=== PATIENT | male | born 1940 | race African-American/Black ===

== ENCOUNTER 2018-12-15 19:21 | Inpatient (IN) | payer MEDICARE ==
[~2018-12-15] VITALS: Ht 167.6 cm; Wt 58.5 kg
[2018-12-15 19:40] VITALS: BP 126/72
--- NOTE | 2018-12-15 20:05 | NUR ---
ER Nurse Note: Pt came from home c/o shortness of breath since October 2018. Pt stated it gets worse with activity and ADL, kyle walking. Pt a&ox4, HR 132 with no chest pain. Pt on 3L O2 at 99%. Pt warm to touch, cap refill less than 3 secs, no signs of distress. ERMD at pt side; will continue to montior.
[2018-12-15 20:29] LABS: ANION GAP 14 mmol/L (5-15); BLOOD UREA NITROGEN 26 mg/dL (7-18); CALCIUM 8.2 MG/DL (8.5-10.1); CARBON DIOXIDE 21 MMOL/L (21-32); CHLORIDE 105 MMOL/L (98-107); CREATININE 1.2 MG/DL (0.55-1.30); POTASSIUM 3.3 MMOL/L (3.5-5.1); SODIUM 140 MMOL/L (136-145)
[2018-12-15] MEDS ORDERED: dilTIAZem HCl 25mg/5ml Inj IVP ONE (20:30)
[2018-12-15 20:39] LABS: HEMATOCRIT 11.6 % (42.0-52.0); MEAN CORPUSCULAR VOLUME 92 FL (80-99); PLATELET COUNT 133 K/UL (150-450); RED BLOOD COUNT 1.26 M/UL (4.70-6.10)
[2018-12-15 20:41] LABS: HEMOGLOBIN 3.5 G/DL (14.2-18.0)
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
[2018-12-15 20:46] LABS: ALANINE AMINOTRANSFERASE 27 U/L (12-78); ALBUMIN/GLOBULIN RATIO 0.8 (1.0-2.7); ALKALINE PHOSPHATASE 766 U/L (46-116); ASPARTATE AMINO TRANSFERASE 32 U/L (15-37); BILIRUBIN,TOTAL 0.5 MG/DL (0.2-1.0); CKMB 0.5 NG/ML (0.0-3.6); CREATINE KINASE 58 U/L (26-308)
[2018-12-15 20:52] LABS: INR 1.1 (0.9-1.1)
[2018-12-15] MEDS ORDERED: dilTIAZem HCl 25mg/5ml Inj ONE (20:53)
--- NOTE | 2018-12-15 20:57 | NUR ---
ER Nurse Note: All orders given per ERMD orders. Diltiazem given, HR at 115. When asked, pt does not want to be admitted to hospital. ERMD aware; will continue to angelica.
[2018-12-15 21:10] VITALS: BP 153/62
[2018-12-15 22:04] VITALS: BP 134/71
[2018-12-15 22:19] VITALS: BP 125/52
--- NOTE | 2018-12-15 22:20 | NUR ---
ER Nurse Note: Blood transfusion started at 2204. No reaction after 15 mins; pt a&ox4, no signs of distress; denies pain. No fever, BP stable. Will continue to montior.
[2018-12-15] MEDS ORDERED: Isovue-300 100ml vial INJ PRN (23:00)
--- NOTE | 2018-12-15 23:33 | NUR ---
ER Nurse Note: Pt tolerating first unit of blood. No reaction noted; VSS except HR 113. Pt denies pain; pt calm, cooperative, a&ox4. No signs of distress. All safety measures met; will continue to montior.
[2018-12-16] VITALS (35 sets, daily range): BP systolic 106–182; BP diastolic 57–127
--- NOTE | 2018-12-16 00:54 | NUR ---
ER Nurse Note: Infusing second unit of blood; tolerating well. Pt a&ox4, no signs of distress. Pt states "feeling better and no trouble breathing". Pt warm to touch, no pain stated, no adverse effects noted. Will continue to montior
--- NOTE | 2018-12-16 01:25 | NUR ---
ER Nurse Note: Pt a&ox4, no signs of distress. Tolerating blood; no signs of a/e. Pt HR has been around 100 bpm. Pt on a hosptial bed; awaiting ICU room. Will continue to montior.
--- NOTE | 2018-12-16 02:00 | NUR ---
ER Nurse Note: Called Dr. Green for impt orders; no answer. Will call again. Pt a&ox4, HR at 114, temp 98.6. Pt stated he feels better than he first came to the ER. Pt warmer to touch, bilateral radial pulses strong. Will draw repeat labs after second unit of blood. Will continue to dinesh.
[2018-12-16 03:28] LABS: HEMATOCRIT 18.1 % (42.0-52.0); MEAN CORPUSCULAR VOLUME 91 FL (80-99); PLATELET COUNT 114 K/UL (150-450); RED BLOOD COUNT 1.99 M/UL (4.70-6.10); RED CELL DISTRIBUTION WIDTH 18.1 % (11.6-14.8); WHITE BLOOD COUNT 4.9 K/UL (4.8-10.8)
[2018-12-16 03:31] LABS: HEMOGLOBIN 5.8 G/DL (14.2-18.0)
--- NOTE | 2018-12-16 04:32 | NUR ---
ED Nurse Note: Message left to Dr Green and Idania for the admit orders. await for respond back.
--- NOTE | 2018-12-16 05:40 | NUR ---
ER Nurse Note: Report given to Maritza, SARAI in ICU for continuity of care. Pt a&ox4, HR 118, no signs of distress. Infused 3 units of blood; tolerated well. All orders completed per ERMD orders. All belongings taken by pt. Contact information: Mala arboleda Paula (daughters): and .
--- NOTE | 2018-12-16 06:29 | NUR ---
NURSE NOTES: Admit 78 YOM from ER with dx;At-Fib with RVR and GI Bleed awake alert oriented.Appropriate follows command.Monitor shows AF with RVR.Denies CP.See Adm.H/H.S/P Transfused total 3units PRBC one more unit to infuse.CBC after.
[2018-12-16] MEDS ORDERED: D5NS 1,000 ML IV SCH (07:01)
--- NOTE | 2018-12-16 07:12 | NUR ---
HAND-OFF: Report given to SARAI FINCH.
[2018-12-16] MEDS ORDERED: Mylanta II UD 30ml ORAL PRN (07:15)
--- NOTE | 2018-12-16 07:20 | NUR ---
NURSE NOTES: Report received from Landry MOON. Pt alert and oriented x4, able to make needs known. Pt connected to rn cardiac, afib HR 110-130. Pt on 2 L O2, denies SOB. Pt denies pain or discomfort at this time. 20G LH IV with 4th unit PRBC running. RFA 20G with NS @ 75 cc/hr. Safety measures in place with bed with bed locked and in lowest position, side rails x 3 up and bed alarm activated. Will continue to monitor and continue plan of care.
[2018-12-16] MEDS ORDERED: Phytonadione 10 MG in D5W 55 ML IVPB ONE (08:00)
--- NOTE | 2018-12-16 09:23 | NUR ---
NURSE NOTES: Dr Emerson here to see pt. No acute distress. Will continue to monitor.
--- NOTE | 2018-12-16 09:37 | Pulmonolgy Critical Care Note ---
Critical Care - Asmt/Plan Problems: (1) Severe anemia (2) Atrial fibrillation with rapid ventricular response (3) ATN (acute tubular necrosis) Respiratory: monitor respiratory rate, adjust FIO2, CXR Cardiac: continue to monitor HR/BP Renal: F/U I&O, keep IV fluid, check electrolytes Gastrointestinal: hold feedings Endocrine: monitor blood sugar Hematologic: monitor H/H, transfuse if hgb<8.5 Neurologic: keep patient comfortable Prophylaxis: Protonix, Heparin Time Spent (Minutes): 40 Notes Reviewed: other - Er note Discussed with: nurses, consultants, pillowcase cleanermanager plan - Objective Last 24 Hour Vital Signs Date Time Temp Pulse Resp B/P (MAP) Pulse Ox O2 Delivery O2 Flow Rate FiO2 12/16/18 09:00 113 21 132/79 (96) 100 12/16/18 08:00 Nasal Cannula 2.0 12/16/18 08:00 98.6 130 21 138/102 (114) 99 12/16/18 07:00 111 18 115/80 (92) 100 12/16/18 06:00 Nasal Cannula 2.0 12/16/18 06:00 120 12/16/18 06:00 97.2 127 21 121/88 (99) 99 12/16/18 05:40 97.0 118 19 126/85 100 Nasal Cannula 2.0 12/16/18 05:08 97.0 118 19 126/85 100 Nasal Cannula 2.0 12/16/18 04:50 Room Air 12/16/18 03:29 98.3 103 19 122/59 100 Nasal Cannula 2.0 12/16/18 03:15 98.6 111 20 106/72 100 Nasal Cannula 2.0 12/16/18 03:05 98.5 103 18 127/76 100 Nasal Cannula 3.0 12/16/18 02:37 98.6 113 18 117/68 100 Nasal Cannula 2.0 12/16/18 01:24 98.4 95 22 119/57 100 Nasal Cannula 3.0 12/16/18 00:50 98.4 108 24 129/59 100 Nasal Cannula 3.0 12/16/18 00:35 98.7 117 20 131/70 100 3.0 12/15/18 22:19 98.4 110 20 125/52 100 Nasal Cannula 3.0 12/15/18 22:04 97.6 108 22 134/71 100 Nasal Cannula 3.0 12/15/18 21:10 114 17 153/62 98 Nasal Cannula 3.0 12/15/18 20:40 132 119/79 12/15/18 20:05 130 12/15/18 19:40 71 17 Room Air 12/15/18 19:40 98.8 78 17 126/72 98 Room Air 12/15/18 19:25 98.8 71 17 150/71 98 Room Air Status: awake Condition: critical Neck: full ROM Lungs: chest wall tender Heart: HR/BP unstable Abdomen: non-tender Extremities: no C/C/E Micro: Microbiology Date/Time Source Procedure Growth Status 12/16/18 05:00 Rectum Received Critical Care - Subjective ROS Limited/Unobtainable: Yes ICU Day: 2 Interval Events: 78 year old male without any PMHx presented to ER with chief complains of shortness of breath with any exertion to include walking. The patient states that this is been going on for the past month. He denies recent illness. Denies fever or chills. He denies nausea or vomiting. His h/h was 311. He was in Afib with rapid heart rate in ER. He got two doses of Cardizem and slowed down the rate. He is admitted to ICU for further treatment. Fluids: d5 ns 100/hour I&O: Intake and Output 12/15/18 12/16/18 19:00 07:00 Intake Total 3622 ml Output Total 200 ml Balance 3422 ml Intake Oral 50 ml IV Total 3070 ml Blood Product 502 ml Output Urine Total 200 ml # Voids 3 # Bowel Movements 1 CXR: emphysematous changes Labs: Laboratory Tests Test 12/15/18 19:50 12/15/18 20:25 12/16/18 03:10 Sodium Level 140 MMOL/L (136-145) Potassium Level 3.3 MMOL/L (3.5-5.1) L Chloride Level 105 MMOL/L (98-107) Carbon Dioxide Level 21 MMOL/L (21-32) Anion Gap 14 mmol/L (5-15) Blood Urea Nitrogen 26 mg/dL (7-18) H Creatinine 1.2 MG/DL (0.55-1.30) Estimat Glomerular Filtration Rate mL/min (>60) Glucose Level 130 MG/DL (74-106) H Calcium Level 8.2 MG/DL (8.5-10.1) L Total Bilirubin 0.5 MG/DL (0.2-1.0) Aspartate Amino Transf (AST/SGOT) 32 U/L (15-37) Alanine Aminotransferase (ALT/SGPT) 27 U/L (12-78) Alkaline Phosphatase 766 U/L (46-116) H Total Creatine Kinase 58 U/L (26-308) Creatine Kinase MB 0.5 NG/ML (0.0-3.6) Creatine Kinase MB Relative Index 0.8 Troponin I 0.000 ng/mL (0.000-0.056) Total Protein 6.9 G/DL (6.4-8.2) Albumin 3.0 G/DL (3.4-5.0) L Globulin 3.9 g/dL Albumin/Globulin Ratio 0.8 (1.0-2.7) L Thyroid Stimulating Hormone (TSH) 4.511 uiU/mL (0.358-3.740) Free Thyroxine 1.03 NG/DL (0.76-1.46) White Blood Count 6.0 K/UL (4.8-10.8) 4.9 K/UL (4.8-10.8) Red Blood Count 1.26 M/UL (4.70-6.10) L 1.99 M/UL (4.70-6.10) L Hemoglobin 3.5 G/DL (14.2-18.0) *L 5.8 G/DL (14.2-18.0) Hematocrit 11.6 % (42.0-52.0) L 18.1 % (42.0-52.0) #L Mean Corpuscular Volume 92 FL (80-99) 91 FL (80-99) Mean Corpuscular Hemoglobin 27.9 PG (27.0-31.0) 29.3 PG (27.0-31.0) Mean Corpuscular Hemoglobin Concent 30.3 G/DL (32.0-36.0) L 32.2 G/DL (32.0-36.0) Red Cell Distribution Width 20.0 % (11.6-14.8) H 18.1 % (11.6-14.8) H Platelet Count 133 K/UL (150-450) L 114 K/UL (150-450) L Mean Platelet Volume 5.2 FL (6.5-10.1) L 6.0 FL (6.5-10.1) L Neutrophils (%) (Auto) % (45.0-75.0) % (45.0-75.0) Lymphocytes (%) (Auto) % (20.0-45.0) % (20.0-45.0) Monocytes (%) (Auto) % (1.0-10.0) % (1.0-10.0) Eosinophils (%) (Auto) % (0.0-3.0) % (0.0-3.0) Basophils (%) (Auto) % (0.0-2.0) % (0.0-2.0) Differential Total Cells Counted 100 Neutrophils % (Manual) 72 % (45-75) Lymphocytes % (Manual) 21 % (20-45) Monocytes % (Manual) 5 % (1-10) Eosinophils % (Manual) 0 % (0-3) Basophils % (Manual) 2 % (0-2) Band Neutrophils 0 % (0-8) Nucleated Red Blood Cells 5 /100 WBC Platelet Estimate Decreased L Platelet Morphology Normal Polychromasia 2+ Hypochromasia 2+ Poikilocytosis 1+ Anisocytosis 2+ Prothrombin Time 11.3 SEC (9.30-11.50) Prothromb Time International Ratio 1.1 (0.9-1.1) Activated Partial Thromboplast Time 34 SEC (23-33) H Bryan Emerson MD Dec 16, 2018 09:37
[2018-12-16] MEDS ORDERED: D5 1/2NS w/KCl 40meq 1000ml 1,000 ML IV SCH (09:45)
[2018-12-16] MEDS ORDERED: D5 1/2NS w/KCl 20mEq 1,000 ML IV ONE (10:00)
[2018-12-16 10:24] LABS: BASOPHILS % (AUTO) 0.5 % (0.0-2.0); EOSINOPHILS % (AUTO) 0.5 % (0.0-3.0); HEMATOCRIT 29.7 % (42.0-52.0); HEMOGLOBIN 9.7 G/DL (14.2-18.0); LYMPHOCYTES % (AUTO) 28.2 % (20.0-45.0); MEAN CORPUSCULAR VOLUME 90 FL (80-99); MONOCYTES % (AUTO) 7.6 % (1.0-10.0); NEUTROPHILS % (AUTO) 63.1 % (45.0-75.0); PLATELET COUNT 146 K/UL (150-450); RED CELL DISTRIBUTION WIDTH 15.5 % (11.6-14.8); WHITE BLOOD COUNT 6.6 K/UL (4.8-10.8)
[2018-12-16] MEDS: D5 1/2NS w/KCl 20mEq 1,000 ML IV SCH ×2 (10:30→18:18)
[2018-12-16 10:31] LABS: INR 1.1 (0.9-1.1)
[2018-12-16 10:51] LABS: ALANINE AMINOTRANSFERASE 28 U/L (12-78); ALBUMIN 2.9 G/DL (3.4-5.0); ALBUMIN/GLOBULIN RATIO 0.6 (1.0-2.7); ALKALINE PHOSPHATASE 772 U/L (46-116); ANION GAP 13 mmol/L (5-15); ASPARTATE AMINO TRANSFERASE 30 U/L (15-37); BILIRUBIN,TOTAL 2.6 MG/DL (0.2-1.0); BLOOD UREA NITROGEN 22 mg/dL (7-18); CALCIUM 8.9 MG/DL (8.5-10.1); CARBON DIOXIDE 19 MMOL/L (21-32); CHLORIDE 107 MMOL/L (98-107); POTASSIUM 3.6 MMOL/L (3.5-5.1); SODIUM 139 MMOL/L (136-145)
[2018-12-16 10:53] LABS: IRON 283 ug/dL (50-175); LACTATE DEHYDROGENASE 301 U/L (81-234); TOTAL IRON BINDING CAPACITY 306 ug/dL (250-450)
[2018-12-16 10:56] LABS: % IRON SATURATION 92 % (15-50)
[2018-12-16 11:01] LABS: BILIRUBIN,DIRECT 0.3 MG/DL (0.0-0.3)
--- NOTE | 2018-12-16 11:31 | NUR ---
NURSE NOTES: Pt came back from CT chest. Will continue to monitor.
--- NOTE | 2018-12-16 11:55 | Diagnostic Imaging Report ---
APPROVED REPORT CPT Code: 60666 Present Symptoms Shortness of breath BILATERAL: Imaging reveals a patent deep venous system bilaterally. There is no evidence of thrombus within the common femoral, superficial femoral, popliteal or tibial segments. The greater saphenous veins are within normal limits. Doppler indicates normal spontaneous flow within these segments.
--- NOTE | 2018-12-16 12:47 | NUR ---
NURSE NOTES: Family at bedside visiting with pt. Dr Mcmillan called for HR 120-160 rapid afib, left message. Will continue to monitor.
[2018-12-16 13:05] LABS: BASOPHILS % (AUTO) 0.6 % (0.0-2.0); EOSINOPHILS % (AUTO) 0.4 % (0.0-3.0); HEMATOCRIT 28.8 % (42.0-52.0); HEMOGLOBIN 9.4 G/DL (14.2-18.0); LYMPHOCYTES % (AUTO) 17.7 % (20.0-45.0); MEAN CORPUSCULAR VOLUME 90 FL (80-99); MONOCYTES % (AUTO) 5.6 % (1.0-10.0); NEUTROPHILS % (AUTO) 75.6 % (45.0-75.0); PLATELET COUNT 138 K/UL (150-450); RED BLOOD COUNT 3.18 M/UL (4.70-6.10); RED CELL DISTRIBUTION WIDTH 15.7 % (11.6-14.8); WHITE BLOOD COUNT 5.7 K/UL (4.8-10.8)
--- NOTE | 2018-12-16 13:20 | NUR ---
RESPIRATORY NOTE: Pt placed on BiPAP for SOB. Pt condition improved with BiPAP. RN aware of pt condition. BiPAP alarms are on and audible. BiPAP is plugged into red outlet. Will monitor pt progress.
[2018-12-16 13:27] LABS: ANION GAP 12 mmol/L (5-15); BLOOD UREA NITROGEN 20 mg/dL (7-18); CALCIUM 8.5 MG/DL (8.5-10.1); CARBON DIOXIDE 19 MMOL/L (21-32); CHLORIDE 107 MMOL/L (98-107); POTASSIUM 4.4 MMOL/L (3.5-5.1); SODIUM 138 MMOL/L (136-145)
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
[2018-12-16] MEDS ORDERED: Gastrograffin 30ml ORAL PRN (14:00)
[2018-12-16] MEDS ORDERED: Isovue-300 100ml vial INJ PRN (14:00)
--- NOTE | 2018-12-16 14:00 | NUR ---
NURSE NOTES: Pt started having respiratory distress, shortness of breath, desaturation to <80% on non-rebreather. Pt placed on bipap by RT and now saturating 100%. Cardizem drip started, HR currently 130s. Will continue to monitor.
--- NOTE | 2018-12-16 14:47 | NUR ---
NURSE NOTES: Cardizem drip increased to max rate of 15 mg/hr, HR now 110-140. Daughters at bedside. Will continue to monitor.
--- NOTE | 2018-12-16 15:14 | Diagnostic Imaging Report ---
Clinical Indication: Shortness of breath, atrial fibrillation Technique: IV administration nonionic contrast. Spiral acquisition obtained through the chest. Multiplanar reconstructions generated. Total dose length product 662.21 mGycm. CTDIvol(s) 12.92 mGy. Dose reduction achieved using automated exposure control Comparison: Reference made to chest radiograph 12/15/2018 Findings: There is a moderate right pleural effusion, moderate to large left pleural effusion. There is fairly extensive diffuse interstitial septal thickening as well as diffuse pulmonary parenchymal groundglass opacity. Reticular opacities are seen in the posterior inferior upper lobes bilaterally and in the bilateral lower lobes, right greater than left. Some dense consolidation and atelectasis is seen involving the inferior left lower lobe. There may be some honeycombing involving the areas of reticulation as well. There is diffuse edema of the subcutaneous and mediastinal fat. Tiny cystic spaces are seen in the upper lobes bilaterally. The heart is mildly enlarged. No definite pericardial effusion. The ascending thoracic aorta is ectatic, measuring 4 cm transverse dimension. No mediastinal or hilar mass or adenopathy. The esophagus is unremarkable. The airways are clear. The bones are diffusely osteosclerotic. There is are old healed fracture deformities of the right seventh through 10th ribs. The included upper abdominal viscera demonstrate bilateral renal cysts. Impression: Extensive pulmonary parenchymal disease, as described, with diffuse interstitial septal thickening and groundglass opacity, areas of reticular opacity, dense lower lobe consolidation and atelectasis on the left. Suspect findings are on the basis of pulmonary edema, although infectious inflammatory etiologies are also partial. There is also suggestion of background chronic interstitial disease and COPD changes. Bilateral pleural effusions Mild cardiomegaly Ectatic but not frankly aneurysmal ascending thoracic aorta Diffuse bony osteosclerosis. This may reflect systemic/metabolic disorder, or could indicate diffuse osteoblastic osseous metastases. The latter deemed somewhat less likely given absence of discrete abnormalities. Old healed right rib fractures, bilateral renal cysts incidentally noted The CT scanner at [facility] is accredited by the [employer] and the scans are performed using protocols designed to limit radiation exposure to as low as reasonably achievable to attain images of sufficient resolution adequate for diagnostic evaluation.
--- NOTE | 2018-12-16 15:24 | Diagnostic Imaging Report ---
Indication: Chest pain Technique: One view of the chest Comparison: none Findings: The lungs are hyperinflated. There is a moderate to large left pleural effusion. There is generalized bilateral diffuse interstitial congestion. The heart is borderline enlarged. The bones are diffusely osteosclerotic. Old healed right rib fracture deformities are noted Impression: Diffuse pulmonary interstitial and airspace edema Left-sided pleural effusion Borderline cardiac megaly Possible mild hyperinflation, could indicate COPD changes if real
--- NOTE | 2018-12-16 15:48 | Cardiac Electrophysiology PN ---
Subjective Subjective [id number] Objective Last 24 Hour Vital Signs Date Time Temp Pulse Resp B/P (MAP) Pulse Ox O2 Delivery O2 Flow Rate FiO2 12/16/18 15:00 112 25 113/97 (102) 100 12/16/18 14:00 141 23 129/96 (107) 100 12/16/18 13:35 137 123/90 12/16/18 13:34 137 123/90 12/16/18 13:00 148 26 182/127 (145) 90 12/16/18 12:00 Nasal Cannula 2.0 12/16/18 12:00 62 12/16/18 12:00 98.0 137 24 123/90 (101) 89 12/16/18 11:00 146 27 147/88 (107) 89 12/16/18 10:00 158 26 142/99 (113) 94 12/16/18 09:00 113 21 132/79 (96) 100 12/16/18 08:00 Nasal Cannula 2.0 12/16/18 08:00 98.6 130 21 138/102 (114) 99 12/16/18 07:00 111 18 115/80 (92) 100 12/16/18 06:00 Nasal Cannula 2.0 12/16/18 06:00 120 12/16/18 06:00 97.2 127 21 121/88 (99) 99 12/16/18 05:40 97.0 118 19 126/85 100 Nasal Cannula 2.0 12/16/18 05:08 97.0 118 19 126/85 100 Nasal Cannula 2.0 12/16/18 04:50 Room Air 12/16/18 03:29 98.3 103 19 122/59 100 Nasal Cannula 2.0 12/16/18 03:15 98.6 111 20 106/72 100 Nasal Cannula 2.0 12/16/18 03:05 98.5 103 18 127/76 100 Nasal Cannula 3.0 12/16/18 02:37 98.6 113 18 117/68 100 Nasal Cannula 2.0 12/16/18 01:24 98.4 95 22 119/57 100 Nasal Cannula 3.0 12/16/18 00:50 98.4 108 24 129/59 100 Nasal Cannula 3.0 12/16/18 00:35 98.7 117 20 131/70 100 3.0 12/15/18 22:19 98.4 110 20 125/52 100 Nasal Cannula 3.0 12/15/18 22:04 97.6 108 22 134/71 100 Nasal Cannula 3.0 12/15/18 21:10 114 17 153/62 98 Nasal Cannula 3.0 12/15/18 20:40 132 119/79 12/15/18 20:05 130 12/15/18 19:40 71 17 Room Air 12/15/18 19:40 98.8 78 17 126/72 98 Room Air 12/15/18 19:25 98.8 71 17 150/71 98 Room Air Intake and Output 12/15/18 12/16/18 19:00 07:00 Intake Total 3622 ml Output Total 200 ml Balance 3422 ml Intake Oral 50 ml IV Total 3070 ml Blood Product 502 ml Output Urine Total 200 ml # Voids 3 # Bowel Movements 1 Laboratory Tests Test 12/15/18 19:50 12/15/18 20:25 12/16/18 03:10 12/16/18 10:00 Sodium Level 140 MMOL/L (136-145) 139 MMOL/L (136-145) Potassium Level 3.3 MMOL/L (3.5-5.1) L 3.6 MMOL/L (3.5-5.1) Chloride Level 105 MMOL/L (98-107) 107 MMOL/L (98-107) Carbon Dioxide Level 21 MMOL/L (21-32) 19 MMOL/L (21-32) L Anion Gap 14 mmol/L (5-15) 13 mmol/L (5-15) Blood Urea Nitrogen 26 mg/dL (7-18) H 22 mg/dL (7-18) H Creatinine 1.2 MG/DL (0.55-1.30) 1.0 MG/DL (0.55-1.30) Estimat Glomerular Filtration Rate mL/min (>60) mL/min (>60) Glucose Level 130 MG/DL (74-106) H 136 MG/DL (74-106) H Calcium Level 8.2 MG/DL (8.5-10.1) L 8.9 MG/DL (8.5-10.1) Total Bilirubin 0.5 MG/DL (0.2-1.0) 2.6 MG/DL (0.2-1.0) H Aspartate Amino Transf (AST/SGOT) 32 U/L (15-37) 30 U/L (15-37) Alanine Aminotransferase (ALT/SGPT) 27 U/L (12-78) 28 U/L (12-78) Alkaline Phosphatase 766 U/L (46-116) H 772 U/L (46-116) H Total Creatine Kinase 58 U/L (26-308) Creatine Kinase MB 0.5 NG/ML (0.0-3.6) Creatine Kinase MB Relative Index 0.8 Troponin I 0.000 ng/mL (0.000-0.056) Total Protein 6.9 G/DL (6.4-8.2) 7.8 G/DL (6.4-8.2) Albumin 3.0 G/DL (3.4-5.0) L 2.9 G/DL (3.4-5.0) L Globulin 3.9 g/dL 4.9 g/dL Albumin/Globulin Ratio 0.8 (1.0-2.7) L 0.6 (1.0-2.7) L Thyroid Stimulating Hormone (TSH) 4.511 uiU/mL (0.358-3.740) Free Thyroxine 1.03 NG/DL (0.76-1.46) White Blood Count 6.0 K/UL (4.8-10.8) 4.9 K/UL (4.8-10.8) 6.6 K/UL (4.8-10.8) Red Blood Count 1.26 M/UL (4.70-6.10) L 1.99 M/UL (4.70-6.10) L 3.30 M/UL (4.70-6.10) L Hemoglobin 3.5 G/DL (14.2-18.0) *L 5.8 G/DL (14.2-18.0) 9.7 G/DL (14.2-18.0) #L Hematocrit 11.6 % (42.0-52.0) L 18.1 % (42.0-52.0) #L 29.7 % (42.0-52.0) #L Mean Corpuscular Volume 92 FL (80-99) 91 FL (80-99) 90 FL (80-99) Mean Corpuscular Hemoglobin 27.9 PG (27.0-31.0) 29.3 PG (27.0-31.0) 29.4 PG (27.0-31.0) Mean Corpuscular Hemoglobin Concent 30.3 G/DL (32.0-36.0) L 32.2 G/DL (32.0-36.0) 32.5 G/DL (32.0-36.0) Red Cell Distribution Width 20.0 % (11.6-14.8) H 18.1 % (11.6-14.8) H 15.5 % (11.6-14.8) H Platelet Count 133 K/UL (150-450) L 114 K/UL (150-450) L 146 K/UL (150-450) L Mean Platelet Volume 5.2 FL (6.5-10.1) L 6.0 FL (6.5-10.1) L 5.4 FL (6.5-10.1) L Neutrophils (%) (Auto) % (45.0-75.0) % (45.0-75.0) 63.1 % (45.0-75.0) Lymphocytes (%) (Auto) % (20.0-45.0) % (20.0-45.0) 28.2 % (20.0-45.0) Monocytes (%) (Auto) % (1.0-10.0) % (1.0-10.0) 7.6 % (1.0-10.0) Eosinophils (%) (Auto) % (0.0-3.0) % (0.0-3.0) 0.5 % (0.0-3.0) Basophils (%) (Auto) % (0.0-2.0) % (0.0-2.0) 0.5 % (0.0-2.0) Differential Total Cells Counted 100 100 Neutrophils % (Manual) 72 % (45-75) 62 % (45-75) Lymphocytes % (Manual) 21 % (20-45) 30 % (20-45) Monocytes % (Manual) 5 % (1-10) 8 % (1-10) Eosinophils % (Manual) 0 % (0-3) 0 % (0-3) Basophils % (Manual) 2 % (0-2) 0 % (0-2) Band Neutrophils 0 % (0-8) 0 % (0-8) Nucleated Red Blood Cells 5 /100 WBC Platelet Estimate Decreased L Decreased L Platelet Morphology Normal Normal Polychromasia 2+ Hypochromasia 2+ 1+ Poikilocytosis 1+ Anisocytosis 2+ 1+ Prothrombin Time 11.3 SEC (9.30-11.50) 11.1 SEC (9.30-11.50) Prothromb Time International Ratio 1.1 (0.9-1.1) 1.1 (0.9-1.1) Activated Partial Thromboplast Time 34 SEC (23-33) H 33 SEC (23-33) Erythrocyte Sedimentation Rate 116 MM/HR (0-20) H Reticulocyte Count 0.7 % (0.0-2.0) Iron Level 283 ug/dL (50-175) H Total Iron Binding Capacity 306 ug/dL (250-450) Percent Iron Saturation 92 % (15-50) H Unsaturated Iron Binding 23 ug/dL (112-346) L Direct Bilirubin 0.3 MG/DL (0.0-0.3) Lactate Dehydrogenase 301 U/L (81-234) H Carcinoembryonic Antigen Pending Vitamin B12 Level 909 PG/ML (193-986) Folate 17.8 NG/ML (8.6-58.9) Test 12/16/18 12:55 White Blood Count 5.7 K/UL (4.8-10.8) Red Blood Count 3.18 M/UL (4.70-6.10) L Hemoglobin 9.4 G/DL (14.2-18.0) L Hematocrit 28.8 % (42.0-52.0) L Mean Corpuscular Volume 90 FL (80-99) Mean Corpuscular Hemoglobin 29.6 PG (27.0-31.0) Mean Corpuscular Hemoglobin Concent 32.8 G/DL (32.0-36.0) Red Cell Distribution Width 15.7 % (11.6-14.8) H Platelet Count 138 K/UL (150-450) L Mean Platelet Volume 5.7 FL (6.5-10.1) L Neutrophils (%) (Auto) 75.6 % (45.0-75.0) H Lymphocytes (%) (Auto) 17.7 % (20.0-45.0) L Monocytes (%) (Auto) 5.6 % (1.0-10.0) Eosinophils (%) (Auto) 0.4 % (0.0-3.0) Basophils (%) (Auto) 0.6 % (0.0-2.0) Sodium Level 138 MMOL/L (136-145) Potassium Level 4.4 MMOL/L (3.5-5.1) Chloride Level 107 MMOL/L (98-107) Carbon Dioxide Level 19 MMOL/L (21-32) L Anion Gap 12 mmol/L (5-15) Blood Urea Nitrogen 20 mg/dL (7-18) H Creatinine 1.0 MG/DL (0.55-1.30) Estimat Glomerular Filtration Rate mL/min (>60) Glucose Level 204 MG/DL (74-106) H Calcium Level 8.5 MG/DL (8.5-10.1) Thyroid Stimulating Hormone (TSH) 3.448 uiU/mL (0.358-3.740) Free Thyroxine 0.97 NG/DL (0.76-1.46) Microbiology Date/Time Source Procedure Growth Status 12/16/18 05:00 Rectum Received Shantanu Mcmillan MD Dec 16, 2018 15:48
--- NOTE | 2018-12-16 15:48 | NUR ---
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 17, O2Sat 98 on Room Air RBC 1.26, Hgb3.5, Hct 11.6, MCHC 30.3, rdw20.0, Plt Count 133, MPV 5.[address] Impression:Extensive pulmonary parenchymal disease. IS:3L O2 NC Packed RBC Transfusion Aspirin NS IV x1L Cardizem Admitted to ICU DC plan return to Home
--- NOTE | 2018-12-16 16:44 | NUR ---
NURSE NOTES: Dr Mcmillan here to see pt. Labs ordered for tomorrow. Daughters visiting at bedside. Will continue to monitor.
--- NOTE | 2018-12-16 17:11 | Diagnostic Imaging Report ---
Indication: Shortness of breath Technique: One view of the chest Comparison: 12/15/2018 Findings: There is bilateral diffuse interstitial and airspace disease, which has worsened considerably since the previous day's exam. Moderate to large left pleural effusion persists. Impression: Worsening bilateral diffuse pulmonary parenchymal infiltrates versus edema, over one
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
--- NOTE | 2018-12-16 17:32 | NUR ---
NURSE NOTES: Pt anxious, on bipap saturating 100%. Dr Emerson called for ativan order. Will continue to monitor.
[2018-12-16] MEDS ORDERED: Ipratropium 0.02% Inh Soln 2.5ml UD HHN PRN (17:45)
[2018-12-16] MEDS ORDERED: Levalbuterol Inh UD 1.25mg/0.5ml HHN PRN (17:45)
[2018-12-16] MEDS: LORazepam Inj 2mg/ml 1ml IV PRN ×2 (18:36→23:48)
--- NOTE | 2018-12-16 19:35 | NUR ---
HAND-OFF: Report given to Lissette Dangelo.
--- NOTE | 2018-12-16 19:36 | NUR ---
NURSE NOTES: Endorsement received from SARAI Lima. Patient opens eyes spontaneously. On BiPAP 25/10 100% FiO2. With left hand g20, right forearm g 20. Ongoing D5 1/2NS + KCl 20meqs at 75ml/hr and Cardizem drip 7.5 mg/hr. Head of bed elevated. Bed locked and in low position. Bed alarm on.
--- NOTE | 2018-12-16 20:00 | Consultation ---
DATE OF CONSULTATION: 12/16/2018 CARDIOLOGY CONSULTATION CONSULTING PHYSICIAN: Shantanu Mcmillan M.D. REFERRING PHYSICIAN: Ladnry Green D.O. REASON FOR CONSULTATION: Atrial fibrillation with rapid ventricular response. HISTORY OF PRESENT ILLNESS: The patient is a 78-year-old gentleman with no major past medical history, who presented to the emergency room with increasing shortness of breath with even just walking. This has been going on for the last one month. In the emergency room, the patient's blood pressure was 150/71 with heart rate of 71, respirations of 17. The patient subsequently developed atrial fibrillation with rapid ventricular response. He was started on Cardizem drip and transferred to intensive care unit. The patient's initial troponin was negative and hemoglobin was only 3.5. The patient is status post two units of blood transfusion and since the hemoglobin was still critically low received another two units. At the time of my evaluation, the patient is in intensive care unit, still in atrial fibrillation but on Cardizem drip, rate better controlled, is on BiPAP. REVIEW OF SYSTEMS: Negative other than what was mentioned in the history of present illness. PAST MEDICAL HISTORY: Negative. MEDICATIONS: At home is none. FAMILY HISTORY: Noncontributory. SOCIAL HISTORY: He does not smoke or drink alcohol. PHYSICAL EXAMINATION: VITAL SIGNS: Show blood pressure __/97, initially was 182/127; pulse 112; respirations 18; and temperature 98. HEAD AND NECK: Shows no JVD, on BiPAP. LUNGS: Coarse rhonchi. CARDIOVASCULAR: Shows irregular S1 and S2 with no gallop or murmur. Tachycardic. ABDOMEN: Soft. EXTREMITIES: No pitting edema. LABORATORY DATA: Labs show hemoglobin was 3.5 on admission and then 5.8 and now is 9.4 on four units of blood transfusion. White count 5.7 and platelet count 138,000. Sodium 138, potassium 4.4, BUN 20, creatinine 1, and glucose of 204. INR is 1.1. ASSESSMENT AND PLAN: 1. Atrial fibrillation with rapid ventricular response. The patient has no history of prior cardiac condition. This could have been precipitated due to the patient's profound anemia with hemoglobin of 3.5. His first troponin was negative. We will repeat the troponin and repeat EKG as well. Echocardiogram showed ejection fraction of 45% with moderate to severe pulmonary hypertension. Continue Cardizem drip at this time. Obviously, he will be off anticoagulations for atrial fibrillation in view of possible gastrointestinal bleed and hemoglobin 3.5. 2. Hypertension. Continue Cardizem drip. 3. Profound anemia, hemoglobin of 3.5. The patient was evaluated by Dr. Caruso. Likely would need EGD and colonoscopy for further evaluation. 4. Respiratory failure, currently on BiPAP under management of Dr. Emerson. 5. Mild azotemia, BUN of 20, creatinine 1.0. Case was discussed with the patient's daughter as well as ICU nurse at the bedside. Thank you very much, Dr. Green, for allowing me to participate in the care of this patient. Please do not hesitate to contact me for any questions regarding my evaluation. Shantanu Mcmillan M.D. DR: SAL JOB#: [id number] CC:
--- NOTE | 2018-12-16 20:00 | NUR ---
NURSE NOTES: Patient passed small brown formed stool. Sample collected for Stool OB and sent to lab. Perineal care done. Patient noted to have enlarged scrotum. Male external pouch applied.
--- NOTE | 2018-12-16 21:00 | NUR ---
NURSE NOTES: Patient attempting to get up from the bed, pulled out his IV from his left hand. Reoriented patient. Reinserted g20 at right forearm. Bilateral soft wrist restraints applied. Maintained bed alarm on.
--- NOTE | 2018-12-16 21:30 | History and Physical Report ---
DATE OF ADMISSION: 12/15/2018 CONSULTANTS: 1. Bryan Emerson M.D. 2. Gama Dalton M.D. 3. Shantanu Mcmillan M.D. CHIEF COMPLAINT: Severe anemia, weakness, and shortness of breath. BRIEF HISTORY: This is a 78-year-old male, who lives at home, presents with increased shortness of breath for about a week, getting much weaker yesterday. Finally, came to the [place] ER last night and diagnosed with severe anemia with hemoglobin 3. Started transfusion right away. He was also in AFib and RVR and admitted to the ICU for further care. Currently, O2 mask in place, getting transfusion, no complaint otherwise. PAST MEDICAL HISTORY: Includes anemia and ATN. PAST SURGICAL HISTORY: Lung surgery. MEDICATIONS: Diltiazem, Zofran, temazepam, . ALLERGIES: Denies. SOCIAL HISTORY: Positive smoke. Occasional alcohol. No intravenous drug abuse. FAMILY HISTORY: Noncontributory. REVIEW OF SYSTEMS: No chest pain. Slight shortness of breath. No nausea, vomiting, or diarrhea. PHYSICAL EXAMINATION: GENERAL: O2 mask in place. Slight shortness of breath. Alert in the ICU and oriented x3. VITAL SIGNS: Show temperature is 99 degrees, pulse 141, respirations 23, and blood pressure 120/96. CARDIOVASCULAR: No murmurs. LUNGS: Poor air exchange. ABDOMEN: Bowel sounds distant. EXTREMITIES: Show no cyanosis or edema. NEUROLOGIC: The patient moves all extremities. Slightly weak. LABORATORY AND DIAGNOSTIC DATA: Labs at this time show hemoglobin and hematocrit initial 3.5 and now is 9.4 and 28 and platelets 138,000. BMP shows CO2 19, BUN 20, and glucose 204. INR is 1.1. ASSESSMENT: 1. Severe anemia, status post transfusion. 2. AFib with RVR. 3. ATN. 4. Diabetes. PLAN: 1. Blood sugar control. 2. Dietary followup. 3. O2 pulmonary treatment. 4. Transfuse p.r.n. 5. Hematology followup. 6. CBC and BMP in the morning. 7. PT and dietary evaluation. Landry Green D.O. DR: DARLENE JOB#: [id number] CC:
[2018-12-16] MEDS: Piperacillin/Tazobactam 3.375 GM in NS 110 ML IVPB SCH (21:56)
--- NOTE | 2018-12-16 23:00 | NUR ---
NURSE NOTES: Decreased cardizem drip to 5mg/hr
--- NOTE | 2018-12-16 23:50 | NUR ---
NURSE NOTES: Patient still restless and agitated. PRN ativan was given
[2018-12-17] VITALS (29 sets, daily range): BP systolic 99–152; BP diastolic 48–92
--- NOTE | 2018-12-17 01:00 | NUR ---
NURSE NOTES: Patient asleep at this time. Sinus rhythm, HR between 95-100. Cardizem drip titrated down to 5mg/hr.
--- NOTE | 2018-12-17 01:01 | NUR ---
NURSE NOTES: Clarification: Cardizem drip at 2.5mg/hr
--- NOTE | 2018-12-17 02:55 | NUR ---
NURSE NOTES: Patient noted to be increasingly lethargic. Saturation between 88%-95%. Stat ABG done and relayed to Dr. Emerson. As per Dr Emerson to intubate the patient.
--- NOTE | 2018-12-17 02:57 | NUR ---
NURSE NOTES: ERMAlfredo Jacobson intubated the patient with ET 7.5, 22 lipline. As per him vent settings: AC 16 Vt 600, 100%, PEEP 5. ABG 1 hour post intubation.
--- NOTE | 2018-12-17 03:30 | NUR ---
NURSE NOTES: Called patient's daughter Paula and updated her of patient's current status.
--- NOTE | 2018-12-17 05:00 | NUR ---
NURSE NOTES: OGT pulled out 10cm as indicated in the KUB. Dr. Jacobson called and as per him ET is in place.
--- NOTE | 2018-12-17 05:30 | NUR ---
NURSE NOTES: Bed bath, change of linens done.
[2018-12-17] MEDS: Piperacillin/Tazobactam 3.375 GM in NS 110 ML IVPB SCH ×3 (05:44→21:06)
--- NOTE | 2018-12-17 05:48 | Emergency Room Report ---
History of Present Illness General Chief Complaint: Chest Pain Present Illness HPI This patient was admitted to the ICU and had GI bleeding in rapid A. fib. He was on BiPAP and was not doing well. He still has severe rest or distress and was called by the primary care doctor to intubate the patient. Unable to get any history from this patient. On my arrival patient showed rest or distress and hypoxia. I proceeded to intubate the patient without any difficulty. Allergies: Coded Allergies: No Known Allergies (Unverified , 12/15/18) Nursing Documentation-[facility] Hx Cardiac Problems: No Hx Cancer: No Hx Gastrointestinal Problems: No Hx Neurological Problems: No Review of Systems Respiratory: Reports: shortness of breath All Other Systems: limited - Secondary to patient condition Physical Exam Vital Signs Date Time Temp Pulse Resp B/P (MAP) Pulse Ox O2 Delivery O2 Flow Rate FiO2 12/15/18 19:25 98.8 71 17 150/71 98 Room Air 12/15/18 21:10 3.0 12/16/18 13:20 100 Sp02 EP Interpretation: abnormal General Appearance: severe distress Eyes: bilateral eye PERRL ENT: hearing grossly normal Neck: supple Respiratory: respiratory distress, decreased breath sounds, crackles, rales, rhonchi Cardiovascular #1: normal inspection, regular rate, rhythm Gastrointestinal: normal inspection, soft Musculoskeletal: back normal Neurologic: grossly normal Procedures Critical Care Time Critical Care Time Critical care is mandated in this patient who presented with respiratory distress. Patient require my urgent intervention to attenuate the risks of and respiratory collapse which may lead to cardiovascular collapse and . Critical care time is 35 minutes excluding any reportable procedure. Critical care time included evaluation, multiple reevaluation, looking at old charts, interpreting laboratory and diagnostic data, discussing case with patient and family and consultants, and charting. Intubation Intubation : Consent: Emergent Intubation Method: orotracheal Tube Size (cm): 7.5 Medications: Etomidate, Succinylcholine Breath Sounds after Intubation: equal Intubation Complications: no complications Post Intubation Xray: Yes Progress/Xray Impression: Endotracheal tube in good position Attempts: One Patient Tolerated: Well Complications: None Medical Decision Making Diagnostic Impression: Primary Impression: Anemia Additional Impressions: Renal insufficiency Atrial fibrillation with rapid ventricular response Respiratory failure with hypoxia Qualified Codes: J96.01 - Acute respiratory failure with hypoxia ER Course Patient presents with acute respiratory failure with hypoxia. Patient was intubated without a problem. Patient placed on a ventilator and put in ICU. Chest X-Ray Diagnostic Results Chest X-Ray Diagnostic Results : Chest X-Ray Ordered: Yes # of Views/Limited/Complete: 1 View Indication: Shortness of Breath EP Interpretation: Yes Interpretation: no effusion, no pneumothorax, other - ETT in good position. b/l interstitial vasc congestion Impression: Other - post intubation Electronically Signed by: Joe Jacobson MD Last Vital Signs Date Time Temp Pulse Resp B/P (MAP) Pulse Ox O2 Delivery O2 Flow Rate FiO2 12/17/18 05:20 99 36 100 12/17/18 04:00 Bi-pap 12/17/18 02:00 126/85 (99) 95 12/17/18 00:00 97.9 12/16/18 16:00 2.0 Status: improved Disposition: ADMITTED INPATIENT Condition: Critical Referrals: NOT CHOSEN IPA/,REFERRING (PCP) Joe Jacobson MD Dec 17, 2018 05:48
[2018-12-17 06:24] LABS: BASOPHILS % (AUTO) 1.2 % (0.0-2.0); EOSINOPHILS % (AUTO) 0.1 % (0.0-3.0); HEMATOCRIT 34.2 % (42.0-52.0); HEMOGLOBIN 11.2 G/DL (14.2-18.0); LYMPHOCYTES % (AUTO) 25.6 % (20.0-45.0); MEAN CORPUSCULAR VOLUME 92 FL (80-99); MONOCYTES % (AUTO) 6.3 % (1.0-10.0); NEUTROPHILS % (AUTO) 66.9 % (45.0-75.0); PLATELET COUNT 167 K/UL (150-450); WHITE BLOOD COUNT 4.7 K/UL (4.8-10.8)
[2018-12-17 06:39] LABS: INR 1.1 (0.9-1.1)
[2018-12-17 07:06] LABS: ALANINE AMINOTRANSFERASE 24 U/L (12-78); ALBUMIN 2.3 G/DL (3.4-5.0); ALBUMIN/GLOBULIN RATIO 0.5 (1.0-2.7); ALKALINE PHOSPHATASE 726 U/L (46-116); AMYLASE 426 U/L (25-115); ANION GAP 12 mmol/L (5-15); ASPARTATE AMINO TRANSFERASE 23 U/L (15-37); BLOOD UREA NITROGEN 31 mg/dL (7-18); CALCIUM 8.7 MG/DL (8.5-10.1); CARBON DIOXIDE 19 MMOL/L (21-32); CHLORIDE 107 MMOL/L (98-107); CREATININE 1.5 MG/DL (0.55-1.30); FERRITIN 535 NG/ML (8-388); POTASSIUM 4.7 MMOL/L (3.5-5.1); SODIUM 138 MMOL/L (136-145)
[2018-12-17 07:13] LABS: BILIRUBIN,DIRECT 0.6 MG/DL (0.0-0.3)
--- NOTE | 2018-12-17 07:25 | NUR ---
RESPIRATORY NOTE: received pt newly intubated with current vent settings. pt is tachypneic with RR of 33. alarms are on and audible, vent plugged into red outlet, and ambu at bedside. will cont to monitor.
--- NOTE | 2018-12-17 07:37 | NUR ---
12/17..Unstable at this time, respiratory distress, put on Vent. Check later per SARAI [place]. maris 7:35 Addendum: 12/17/18 at 0738 by RICHARD MATOS Concerning CT a/p
--- NOTE | 2018-12-17 08:00 | NUR ---
NURSE NOTES: Endorsement received from SARAI Mclaughlin. Patient opens eyes spontaneously. newly intubated ETT 7.5/ 22cm LL, AC16 TV600 Fi02 100% Peep5. With left hand g20, right forearm g 20. Ongoing D5 1/2NS + KCl 20meqs at 75ml/hr and Cardizem drip 2.5 mg/hr. Head of bed elevated. Bed locked and in low position. Bed alarm on. Will continue to monitor.
--- NOTE | 2018-12-17 09:17 | Diagnostic Imaging Report ---
. Indication: Post nasogastric tube placement Technique: Supine view of the abdomen Comparison: One hour earlier Findings: Nasogastric tube is again demonstrated, not quite as deep into the stomach as on the prior study. Bowel gas pattern is unremarkable. Impression: Satisfactory nasogastric tube position
--- NOTE | 2018-12-17 09:37 | Diagnostic Imaging Report ---
Indication: Post orogastric tube placement Technique: Supine view of the abdomen Comparison: none Findings: There is an orogastric tube in place, tip projected deep within the stomach at the level gastric body. Contrast from prior CT scan is seen within the bladder and left renal collecting system. No unusual calcifications or masses. There are degenerative changes of the lumbar spine Impression: Satisfactory nasogastric intubation Other findings as noted This agrees with the preliminary interpretation provided overnight by [facility] teleradiology service, with minor variation.
--- NOTE | 2018-12-17 09:40 | NUR ---
REHAB PT NOTE PATIENT ORALLY INTUBATED, NO SKILLED NEEDS AT THIS TIME, DC PT ORDER. NOT APPROPRIATE FOR PT AT THIS TIME. PLEASE RECONSULT WHEN MEDICALLY APPROPRIATE FOR OOB ACTIVITY
--- NOTE | 2018-12-17 10:00 | NUR ---
NURSE NOTES: Pt repositioned, oral care provided. family at bedside. will continue plan of care.
--- NOTE | 2018-12-17 10:12 | General Progress Note ---
Assessment/Plan Problem List: (1) DM (diabetes mellitus) ICD Codes: E11.9 - Type 2 diabetes mellitus without complications SNOMED: 98086021 (2) Elevated LFTs ICD Codes: R94.5 - Abnormal results of liver function studies SNOMED: 026504573, 677636281 (3) Dysphagia ICD Codes: R13.10 - Dysphagia, unspecified SNOMED: 81343411, 344785068 (4) Severe anemia ICD Codes: D64.9 - Anemia, unspecified SNOMED: 889889304 (5) Atrial fibrillation with rapid ventricular response ICD Codes: I48.91 - Unspecified atrial fibrillation SNOMED: 158972235074770, 105120212 (6) Respiratory failure with hypoxia ICD Codes: J96.91 - Respiratory failure, unspecified with hypoxia SNOMED: 74554775002575715 Qualifiers: Qualified Codes: J96.01 - Acute respiratory failure with hypoxia Assessment/Plan now intubated start NGTF on cardizem drip not stable for GI procedures pending fernandez CT when more stable abd us repeat labs check GGTP Subjective ROS Limited/Unobtainable: No Allergies: Coded Allergies: No Known Allergies (Unverified , 12/15/18) Objective Last 24 Hour Vital Signs Date Time Temp Pulse Resp B/P (MAP) Pulse Ox O2 Delivery O2 Flow Rate FiO2 12/17/18 09:06 103 31 100 12/17/18 09:00 100 34 115/75 (88) 83 12/17/18 08:00 99.0 99 29 119/70 (86) 94 12/17/18 07:19 99 33 100 12/17/18 07:00 104 34 110/87 (95) 83 12/17/18 06:00 103 34 139/87 (104) 83 12/17/18 05:30 103 33 131/92 (105) 86 12/17/18 05:20 99 36 100 12/17/18 05:00 102 29 152/89 (110) 85 12/17/18 04:30 96 36 135/81 (99) 92 12/17/18 04:00 87 12/17/18 04:00 97.9 84 29 103/70 (81) 94 12/17/18 04:00 Bi-pap 12/17/18 04:00 100 12/17/18 03:30 85 28 107/76 (86) 12/17/18 03:00 92 29 101/66 (78) 86 12/17/18 03:00 100 12/17/18 02:57 81 28 100 12/17/18 02:30 95 24 131/79 (96) 95 12/17/18 02:00 96 24 126/85 (99) 95 12/17/18 01:30 96 24 134/84 (101) 95 12/17/18 01:27 92 32 95 Full Face 100 12/17/18 00:00 103 12/17/18 00:00 97.9 95 19 117/88 (98) 89 12/17/18 00:00 Bi-pap 12/16/18 23:45 99 24 123/75 (91) 95 12/16/18 23:30 99 25 136/81 (99) 94 12/16/18 23:15 103 28 134/88 (103) 99 12/16/18 23:10 103 31 96 Full Face 100 12/16/18 23:00 101 25 138/77 (97) 95 12/16/18 22:45 108 28 145/77 (99) 90 12/16/18 22:30 105 27 146/82 (103) 93 12/16/18 22:15 97 25 129/85 (100) 95 12/16/18 22:00 93 25 121/87 (98) 96 12/16/18 21:30 100 28 121/87 (98) 98 12/16/18 21:10 94 32 98 Full Face 100 12/16/18 21:00 93 22 126/79 (95) 98 12/16/18 20:30 95 22 126/79 (95) 100 12/16/18 20:00 Bi-pap 12/16/18 20:00 94 12/16/18 20:00 97.9 99 17 115/73 (87) 100 12/16/18 19:30 100 17 115/73 (87) 100 12/16/18 19:00 108 33 142/94 (110) 89 12/16/18 18:55 92 31 100 Full Face 100 12/16/18 18:00 114 31 144/92 (109) 100 12/16/18 17:58 123 30 100 Bi-pap 100 12/16/18 17:55 148 32 100 Full Face 100 12/16/18 17:50 100 12/16/18 17:50 122 30 100 Bi-pap 100 12/16/18 17:20 141 35 100 Full Face 100 12/16/18 17:00 107 30 137/94 (108) 100 12/16/18 16:00 Nasal Cannula 2.0 12/16/18 16:00 98.4 98 27 113/85 (94) 100 12/16/18 16:00 85 12/16/18 15:30 133 24 100 Full Face 100 12/16/18 15:00 112 25 113/97 (102) 100 12/16/18 14:00 141 23 129/96 (107) 100 12/16/18 13:35 137 123/90 12/16/18 13:34 137 123/90 12/16/18 13:20 152 32 100 Full Face 100 12/16/18 13:00 148 26 182/127 (145) 90 12/16/18 12:00 Nasal Cannula 2.0 12/16/18 12:00 62 12/16/18 12:00 98.0 137 24 123/90 (101) 89 12/16/18 11:00 146 27 147/88 (107) 89 Intake and Output 12/16/18 12/17/18 19:00 07:00 Intake Total 670.0 ml 845.0 ml Output Total 450 ml 400 ml Balance 220.0 ml 445.0 ml IV Total 670.0 ml 845.0 ml Output Urine Total 450 ml 400 ml # Bowel Movements 1 1 Laboratory Tests 12/16/18 12:55: White Blood Count 5.7, Red Blood Count 3.18L, Hemoglobin 9.4L, Hematocrit 28.8L , Mean Corpuscular Volume 90, Mean Corpuscular Hemoglobin 29.6, Mean Corpuscular Hemoglobin Concent 32.8, Red Cell Distribution Width 15.7H, Platelet Count 138L, Mean Platelet Volume 5.7L, Neutrophils (%) (Auto) 75.6H, Lymphocytes (%) (Auto) 17.7L, Monocytes (%) (Auto) 5.6, Eosinophils (%) (Auto) 0.4, Basophils (%) (Auto) 0.6, Sodium Level 138, Potassium Level 4.4, Chloride Level 107, Carbon Dioxide Level 19L, Anion Gap 12, Blood Urea Nitrogen 20H, Creatinine 1.0, Estimat Glomerular Filtration Rate , Glucose Level 204H, Calcium Level 8.5, Thyroid Stimulating Hormone (TSH) 3.448, Free Thyroxine 0.97 12/16/18 17:20: Arterial Blood pH 7.347L, Arterial Blood Partial Pressure CO2 28.9L, Arterial Blood Partial Pressure O2 107.5H, Arterial Blood HCO3 15.5*L, Arterial Blood Oxygen Saturation 97.0, Arterial Blood Base Excess -8.9L, Remberto Test Positive 12/16/18 20:30: Stool Occult Blood [Pending] 12/17/18 02:23: Arterial Blood pH 7.165*L, Arterial Blood Partial Pressure CO2 51.1H, Arterial Blood Partial Pressure O2 74.1L, Arterial Blood HCO3 18.0L, Arterial Blood Oxygen Saturation 90.5L, Arterial Blood Base Excess -10.4*L, Remberto Test Positive 12/17/18 04:20: Arterial Blood pH 7.364, Arterial Blood Partial Pressure CO2 28.8L, Arterial Blood Partial Pressure O2 55.4L, Arterial Blood HCO3 16.1*L, Arterial Blood Oxygen Saturation 86.9*L, Arterial Blood Base Excess -8.1L, Remberto Test Positive 12/17/18 05:30: White Blood Count 4.7L, Red Blood Count 3.70L, Hemoglobin 11.2L, Hematocrit 34.2L, Mean Corpuscular Volume 92, Mean Corpuscular Hemoglobin 30.3, Mean Corpuscular Hemoglobin Concent 32.9, Red Cell Distribution Width 16.0H, Platelet Count 167, Mean Platelet Volume 7.3, Neutrophils (%) (Auto) 66.9, Lymphocytes (%) (Auto) 25.6, Monocytes (%) (Auto) 6.3, Eosinophils (%) (Auto) 0.1, Basophils (%) (Auto) 1.2, Prothrombin Time 12.0H, Prothromb Time International Ratio 1.1, Activated Partial Thromboplast Time 30, Sodium Level 138, Potassium Level 4.7, Chloride Level 107, Carbon Dioxide Level 19L, Anion Gap 12, Blood Urea Nitrogen 31H, Creatinine 1.5H, Estimat Glomerular Filtration Rate , Glucose Level 225H, Calcium Level 8.7, Ferritin 535H, Total Bilirubin 2.0H, Direct Bilirubin 0.6H, Aspartate Amino Transf (AST/SGOT) 23, Alanine Aminotransferase (ALT/SGPT) 24, Alkaline Phosphatase 726H, Troponin I 0.353H, Pro-B-Type Natriuretic Peptide 79333G, Total Protein 7.3, Albumin 2.3L, Globulin 5.0, Albumin/Globulin Ratio 0.5L, Amylase Level 426H, Lipase 94, Thyroid Stimulating Hormone (TSH) 1.988, Free Thyroxine 1.21 Height (Feet): 5 Height (Inches): 7.00 Weight (Pounds): 119 General Appearance: lethargic EENT: normal ENT inspection Neck: supple Cardiovascular: tachycardia, arrhythmia Respiratory/Chest: decreased breath sounds Abdomen: normal bowel sounds, non tender, soft Extremities: non-tender Mike Caruso MD Dec 17, 2018 10:12
--- NOTE | 2018-12-17 11:02 | NUR ---
RD ASSESSMENT & RECOMMENDATIONS SEE CARE ACTIVITY FOR COMPLETE ASSESSMENT DAILY ESTIMATED NEEDS: Needs based on critical care, underweight 52kg 25-30 kcals/kg 4088-4240 total kcals 1.2-2 g protein/kg 62-104 g total protein 25-30 mL/kg 1531-2400 total fluid mLs NUTRITION DIAGNOSIS: 1) Swallowing difficulty r/t respiratory status as evidenced by pt now orally intubated, orders for NGTF's. 2) Increased kcal and protein needs r/t underweight status as evidenced by pt is 74% of [place] Body Weight, underweight per guidelines, presents w/ generalized moderate to severe wasting. CURRENT TF: Glucerna 1.2 @60ml ENTERAL NUTRITION RECOMMENDATIONS: Glucerna 1.5 @40ml/hr x24 hrs to provide 960ml, 1440 kcal, 79g prot, 729ml free H2O - Rec TF change to Glucerna 1.5 for less free H2O. - Start @20ml for 6 hrs, advance as tolerated 10ml/hr q4-6 hrs - Flush per MD. HOB over 30 degrees ADDITIONAL RECOMMENDATIONS: 1) Obtain calibrated bed scale wts -> Pt is underweight 2) Rec ISS for improved glycemic control 3) Monitor tolerance to TF 4) Check lytes daily, replete as needed
--- NOTE | 2018-12-17 11:49 | NUR ---
Social Work This SW met with patient who is currently in the ICU (intubated, sedated). Daughters, Mala ([phone]) and Ortiz ([phone]) currently at bedside, expressing concerns and wanting to speak with a Doctor as soon as possible. Dr. Duff at bedside speaking with daughters as well. Daughters requesting full code, full treatment at this time (patient does not have an Advance Directive). Patient was living alone, was independent prior with all ADLs, ambulation, does not use any DME and still driving. Daughters denied any history of mental dustin concerns or substance abuse. Pending progress at this time. Daughter, Paula ([phone]) is the primary decision maker, as needed. Family to assist, as needed upon discharge vs SNF as needed.
--- NOTE | 2018-12-17 12:00 | NUR ---
NURSE NOTES: Pt resting in bed, family at bedside. Will continue plan of care
[2018-12-17] MEDS ORDERED: Morphine Sulfate 4mg/ml Inj (IV USE ONLY) IVP PRN (12:30)
--- NOTE | 2018-12-17 12:40 | Pulmonolgy Critical Care Note ---
Critical Care - Asmt/Plan Problems: (1) Severe anemia (2) Atrial fibrillation with rapid ventricular response (3) ATN (acute tubular necrosis) Respiratory: monitor respiratory rate, adjust FIO2, CXR Cardiac: continue pressors, continue to monitor HR/BP Renal: F/U I&O, keep IV fluid Infectious Disease: check cultures Gastrointestinal: continue feedings/current rate Endocrine: monitor blood sugar Hematologic: transfuse if hgb<8.5 Neurologic: PRN Ativan, PRN Morphine, keep patient comfortable Affect: PRN ativan Prophylaxis: Protonix, Heparin Disposition: keep in ICU Notes Reviewed: cardio Discussed with: nurses, consultants, employment case managertitle manager - Objective Last 24 Hour Vital Signs Date Time Temp Pulse Resp B/P (MAP) Pulse Ox O2 Delivery O2 Flow Rate FiO2 12/17/18 11:00 99 34 129/63 (85) 83 12/17/18 10:47 105 34 100 12/17/18 10:00 103 129/63 12/17/18 10:00 103 34 121/69 (86) 83 12/17/18 09:06 103 31 100 12/17/18 09:00 100 34 115/75 (88) 83 12/17/18 08:00 Bi-pap 12/17/18 08:00 100 12/17/18 08:00 82 12/17/18 08:00 99.0 99 29 119/70 (86) 94 12/17/18 07:19 99 33 100 12/17/18 07:00 104 34 110/87 (95) 83 12/17/18 06:00 103 34 139/87 (104) 83 12/17/18 05:30 103 33 131/92 (105) 86 12/17/18 05:20 99 36 100 12/17/18 05:00 102 29 152/89 (110) 85 12/17/18 04:30 96 36 135/81 (99) 92 12/17/18 04:00 87 12/17/18 04:00 97.9 84 29 103/70 (81) 94 12/17/18 04:00 Bi-pap 12/17/18 04:00 100 12/17/18 03:30 85 28 107/76 (86) 12/17/18 03:00 92 29 101/66 (78) 86 12/17/18 03:00 100 12/17/18 02:57 81 28 100 12/17/18 02:30 95 24 131/79 (96) 95 12/17/18 02:00 96 24 126/85 (99) 95 12/17/18 01:30 96 24 134/84 (101) 95 12/17/18 01:27 92 32 95 Full Face 100 12/17/18 00:00 103 12/17/18 00:00 97.9 95 19 117/88 (98) 89 12/17/18 00:00 Bi-pap 12/16/18 23:45 99 24 123/75 (91) 95 12/16/18 23:30 99 25 136/81 (99) 94 12/16/18 23:15 103 28 134/88 (103) 99 12/16/18 23:10 103 31 96 Full Face 100 12/16/18 23:00 101 25 138/77 (97) 95 12/16/18 22:45 108 28 145/77 (99) 90 12/16/18 22:30 105 27 146/82 (103) 93 12/16/18 22:15 97 25 129/85 (100) 95 12/16/18 22:00 93 25 121/87 (98) 96 12/16/18 21:30 100 28 121/87 (98) 98 12/16/18 21:10 94 32 98 Full Face 100 12/16/18 21:00 93 22 126/79 (95) 98 12/16/18 20:30 95 22 126/79 (95) 100 12/16/18 20:00 Bi-pap 12/16/18 20:00 94 12/16/18 20:00 97.9 99 17 115/73 (87) 100 12/16/18 19:30 100 17 115/73 (87) 100 12/16/18 19:00 108 33 142/94 (110) 89 12/16/18 18:55 92 31 100 Full Face 100 12/16/18 18:00 114 31 144/92 (109) 100 12/16/18 17:58 123 30 100 Bi-pap 100 12/16/18 17:55 148 32 100 Full Face 100 12/16/18 17:50 100 12/16/18 17:50 122 30 100 Bi-pap 100 12/16/18 17:20 141 35 100 Full Face 100 12/16/18 17:00 107 30 137/94 (108) 100 12/16/18 16:00 Nasal Cannula 2.0 12/16/18 16:00 98.4 98 27 113/85 (94) 100 12/16/18 16:00 85 12/16/18 15:30 133 24 100 Full Face 100 12/16/18 15:00 112 25 113/97 (102) 100 12/16/18 14:00 141 23 129/96 (107) 100 12/16/18 13:35 137 123/90 12/16/18 13:34 137 123/90 12/16/18 13:20 152 32 100 Full Face 100 12/16/18 13:00 148 26 182/127 (145) 90 Status: awake Condition: critical HEENT: atraumatic Neck: full ROM Lungs: rales, rhonchi Heart: HR/BP stable Abdomen: soft, non-tender Extremities: no C/C/E Decubiti: location, stage Micro: Microbiology Date/Time Source Procedure Growth Status 12/16/18 05:00 Rectum Received Critical Care - Subjective ROS Limited/Unobtainable: Yes ICU Day: 2 Intubation Day: 2 Condition: critical EKG Rhythm: Sinus Rhythm FI02: 100 Vent Support Breath Rate: 16 Vent Support Mode: AC Vent Tidal Volume: 600 Sputum Amount: Moderate PEEP: 5.0 PIP: 38 Fluids: d5 1/2 NS 75 cc/hour I&O: Intake and Output 12/16/18 12/17/18 19:00 07:00 Intake Total 670.0 ml 845.0 ml Output Total 450 ml 400 ml Balance 220.0 ml 445.0 ml IV Total 670.0 ml 845.0 ml Output Urine Total 450 ml 400 ml # Bowel Movements 1 1 CXR: extensive bilateral infiltrate ET-Tube: 7.5 ET Position: 23 Labs: Laboratory Tests Test 12/16/18 12:55 12/16/18 17:20 12/16/18 20:30 12/17/18 02:23 White Blood Count 5.7 K/UL (4.8-10.8) Red Blood Count 3.18 M/UL (4.70-6.10) L Hemoglobin 9.4 G/DL (14.2-18.0) L Hematocrit 28.8 % (42.0-52.0) L Mean Corpuscular Volume 90 FL (80-99) Mean Corpuscular Hemoglobin 29.6 PG (27.0-31.0) Mean Corpuscular Hemoglobin Concent 32.8 G/DL (32.0-36.0) Red Cell Distribution Width 15.7 % (11.6-14.8) H Platelet Count 138 K/UL (150-450) L Mean Platelet Volume 5.7 FL (6.5-10.1) L Neutrophils (%) (Auto) 75.6 % (45.0-75.0) H Lymphocytes (%) (Auto) 17.7 % (20.0-45.0) L Monocytes (%) (Auto) 5.6 % (1.0-10.0) Eosinophils (%) (Auto) 0.4 % (0.0-3.0) Basophils (%) (Auto) 0.6 % (0.0-2.0) Sodium Level 138 MMOL/L (136-145) Potassium Level 4.4 MMOL/L (3.5-5.1) Chloride Level 107 MMOL/L (98-107) Carbon Dioxide Level 19 MMOL/L (21-32) L Anion Gap 12 mmol/L (5-15) Blood Urea Nitrogen 20 mg/dL (7-18) H Creatinine 1.0 MG/DL (0.55-1.30) Estimat Glomerular Filtration Rate mL/min (>60) Glucose Level 204 MG/DL (74-106) H Calcium Level 8.5 MG/DL (8.5-10.1) Thyroid Stimulating Hormone (TSH) 3.448 uiU/mL (0.358-3.740) Free Thyroxine 0.97 NG/DL (0.76-1.46) Arterial Blood pH 7.347 (7.350-7.450) 7.165 (7.350-7.450) Arterial Blood Partial Pressure CO2 28.9 mmHg (35.0-45.0) L 51.1 mmHg (35.0-45.0) H Arterial Blood Partial Pressure O2 107.5 mmHg (75.0-100.0) H 74.1 mmHg (75.0-100.0) L Arterial Blood HCO3 15.5 mmol/L (22.0-26.0) *L 18.0 mmol/L (22.0-26.0) L Arterial Blood Oxygen Saturation 97.0 % (95-100) 90.5 % (95-100) L Arterial Blood Base Excess -8.9 (-2-2) L -10.4 (-2-2) *L Remberto Test Positive Positive Stool Occult Blood Positive (NEGATIVE) Test 12/17/18 04:20 12/17/18 05:30 12/17/18 11:30 Arterial Blood pH 7.364 (7.350-7.450) Arterial Blood Partial Pressure CO2 28.8 mmHg (35.0-45.0) L Arterial Blood Partial Pressure O2 55.4 mmHg (75.0-100.0) L Arterial Blood HCO3 16.1 mmol/L (22.0-26.0) *L Arterial Blood Oxygen Saturation 86.9 % (95-100) *L Arterial Blood Base Excess -8.1 (-2-2) L Remberto Test Positive White Blood Count 4.7 K/UL (4.8-10.8) L Red Blood Count 3.70 M/UL (4.70-6.10) L Hemoglobin 11.2 G/DL (14.2-18.0) L Hematocrit 34.2 % (42.0-52.0) L Mean Corpuscular Volume 92 FL (80-99) Mean Corpuscular Hemoglobin 30.3 PG (27.0-31.0) Mean Corpuscular Hemoglobin Concent 32.9 G/DL (32.0-36.0) Red Cell Distribution Width 16.0 % (11.6-14.8) H Platelet Count 167 K/UL (150-450) Mean Platelet Volume 7.3 FL (6.5-10.1) Neutrophils (%) (Auto) 66.9 % (45.0-75.0) Lymphocytes (%) (Auto) 25.6 % (20.0-45.0) Monocytes (%) (Auto) 6.3 % (1.0-10.0) Eosinophils (%) (Auto) 0.1 % (0.0-3.0) Basophils (%) (Auto) 1.2 % (0.0-2.0) Prothrombin Time 12.0 SEC (9.30-11.50) H Prothromb Time International Ratio 1.1 (0.9-1.1) Activated Partial Thromboplast Time 30 SEC (23-33) Sodium Level 138 MMOL/L (136-145) Potassium Level 4.7 MMOL/L (3.5-5.1) Chloride Level 107 MMOL/L (98-107) Carbon Dioxide Level 19 MMOL/L (21-32) L Anion Gap 12 mmol/L (5-15) Blood Urea Nitrogen 31 mg/dL (7-18) H Creatinine 1.5 MG/DL (0.55-1.30) H Estimat Glomerular Filtration Rate mL/min (>60) Glucose Level 225 MG/DL (74-106) H Calcium Level 8.7 MG/DL (8.5-10.1) Ferritin 535 NG/ML (8-388) H Total Bilirubin 2.0 MG/DL (0.2-1.0) H Direct Bilirubin 0.6 MG/DL (0.0-0.3) H Aspartate Amino Transf (AST/SGOT) 23 U/L (15-37) Alanine Aminotransferase (ALT/SGPT) 24 U/L (12-78) Alkaline Phosphatase 726 U/L (46-116) H Troponin I 0.353 ng/mL (0.000-0.056) 0.348 ng/mL (0.000-0.056) Pro-B-Type Natriuretic Peptide 34327 pg/mL (0-125) H Total Protein 7.3 G/DL (6.4-8.2) Albumin 2.3 G/DL (3.4-5.0) L Globulin 5.0 g/dL Albumin/Globulin Ratio 0.5 (1.0-2.7) L Amylase Level 426 U/L (25-115) H Lipase 94 U/L (73-393) Thyroid Stimulating Hormone (TSH) 1.988 uiU/mL (0.358-3.740) Free Thyroxine 1.21 NG/DL (0.76-1.46) Bryan Emerson MD Dec 17, 2018 12:40
[2018-12-17] MEDS ORDERED: D5NS 1,000 ML IV SCH (13:00)
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
--- NOTE | 2018-12-17 13:30 | General Progress Note ---
Assessment/Plan Problem List: (1) Respiratory failure with hypoxia ICD Codes: J96.91 - Respiratory failure, unspecified with hypoxia SNOMED: 68142454461537631 Qualifiers: Qualified Codes: J96.01 - Acute respiratory failure with hypoxia (2) Atrial fibrillation with rapid ventricular response ICD Codes: I48.91 - Unspecified atrial fibrillation SNOMED: 933591258800981, 272567265 (3) Severe anemia ICD Codes: D64.9 - Anemia, unspecified SNOMED: 933090777 (4) ATN (acute tubular necrosis) ICD Codes: N17.0 - Acute kidney failure with tubular necrosis SNOMED: 47321330 (5) DM (diabetes mellitus) ICD Codes: E11.9 - Type 2 diabetes mellitus without complications SNOMED: 54195463 Status: unchanged Assessment/Plan vent transfuse prn cardio heme eval f/u cbc bmp am Subjective Constitutional: Reports: weakness Allergies: Coded Allergies: No Known Allergies (Unverified , 12/15/18) All Systems: reviewed and negative except above Subjective intub sedated in icu Objective Last 24 Hour Vital Signs Date Time Temp Pulse Resp B/P (MAP) Pulse Ox O2 Delivery O2 Flow Rate FiO2 12/17/18 13:00 105 34 100 12/17/18 11:00 99 34 129/63 (85) 83 12/17/18 10:47 105 34 100 12/17/18 10:00 103 129/63 12/17/18 10:00 103 34 121/69 (86) 83 12/17/18 09:06 103 31 100 12/17/18 09:00 100 34 115/75 (88) 83 12/17/18 08:00 Bi-pap 12/17/18 08:00 100 12/17/18 08:00 82 12/17/18 08:00 99.0 99 29 119/70 (86) 94 12/17/18 07:19 99 33 100 12/17/18 07:00 104 34 110/87 (95) 83 12/17/18 06:00 103 34 139/87 (104) 83 12/17/18 05:30 103 33 131/92 (105) 86 12/17/18 05:20 99 36 100 12/17/18 05:00 102 29 152/89 (110) 85 12/17/18 04:30 96 36 135/81 (99) 92 12/17/18 04:00 87 12/17/18 04:00 97.9 84 29 103/70 (81) 94 12/17/18 04:00 Bi-pap 12/17/18 04:00 100 12/17/18 03:30 85 28 107/76 (86) 12/17/18 03:00 92 29 101/66 (78) 86 12/17/18 03:00 100 12/17/18 02:57 81 28 100 12/17/18 02:30 95 24 131/79 (96) 95 12/17/18 02:00 96 24 126/85 (99) 95 12/17/18 01:30 96 24 134/84 (101) 95 12/17/18 01:27 92 32 95 Full Face 100 12/17/18 00:00 103 12/17/18 00:00 97.9 95 19 117/88 (98) 89 12/17/18 00:00 Bi-pap 12/16/18 23:45 99 24 123/75 (91) 95 12/16/18 23:30 99 25 136/81 (99) 94 12/16/18 23:15 103 28 134/88 (103) 99 12/16/18 23:10 103 31 96 Full Face 100 12/16/18 23:00 101 25 138/77 (97) 95 12/16/18 22:45 108 28 145/77 (99) 90 12/16/18 22:30 105 27 146/82 (103) 93 12/16/18 22:15 97 25 129/85 (100) 95 12/16/18 22:00 93 25 121/87 (98) 96 12/16/18 21:30 100 28 121/87 (98) 98 12/16/18 21:10 94 32 98 Full Face 100 12/16/18 21:00 93 22 126/79 (95) 98 12/16/18 20:30 95 22 126/79 (95) 100 12/16/18 20:00 Bi-pap 12/16/18 20:00 94 12/16/18 20:00 97.9 99 17 115/73 (87) 100 12/16/18 19:30 100 17 115/73 (87) 100 12/16/18 19:00 108 33 142/94 (110) 89 12/16/18 18:55 92 31 100 Full Face 100 12/16/18 18:00 114 31 144/92 (109) 100 12/16/18 17:58 123 30 100 Bi-pap 100 12/16/18 17:55 148 32 100 Full Face 100 12/16/18 17:50 100 12/16/18 17:50 122 30 100 Bi-pap 100 12/16/18 17:20 141 35 100 Full Face 100 12/16/18 17:00 107 30 137/94 (108) 100 12/16/18 16:00 Nasal Cannula 2.0 12/16/18 16:00 98.4 98 27 113/85 (94) 100 12/16/18 16:00 85 12/16/18 15:30 133 24 100 Full Face 100 12/16/18 15:00 112 25 113/97 (102) 100 12/16/18 14:00 141 23 129/96 (107) 100 12/16/18 13:35 137 123/90 12/16/18 13:34 137 123/90 Intake and Output 12/16/18 12/17/18 19:00 07:00 Intake Total 670.0 ml 845.0 ml Output Total 450 ml 400 ml Balance 220.0 ml 445.0 ml IV Total 670.0 ml 845.0 ml Output Urine Total 450 ml 400 ml # Bowel Movements 1 1 Laboratory Tests 12/16/18 17:20: Arterial Blood pH 7.347L, Arterial Blood Partial Pressure CO2 28.9L, Arterial Blood Partial Pressure O2 107.5H, Arterial Blood HCO3 15.5*L, Arterial Blood Oxygen Saturation 97.0, Arterial Blood Base Excess -8.9L, Remberto Test Positive 12/16/18 20:30: Stool Occult Blood Positive 12/17/18 02:23: Arterial Blood pH 7.165*L, Arterial Blood Partial Pressure CO2 51.1H, Arterial Blood Partial Pressure O2 74.1L, Arterial Blood HCO3 18.0L, Arterial Blood Oxygen Saturation 90.5L, Arterial Blood Base Excess -10.4*L, Remberto Test Positive 12/17/18 04:20: Arterial Blood pH 7.364, Arterial Blood Partial Pressure CO2 28.8L, Arterial Blood Partial Pressure O2 55.4L, Arterial Blood HCO3 16.1*L, Arterial Blood Oxygen Saturation 86.9*L, Arterial Blood Base Excess -8.1L, Remberto Test Positive 12/17/18 05:30: White Blood Count 4.7L, Red Blood Count 3.70L, Hemoglobin 11.2L, Hematocrit 34.2L, Mean Corpuscular Volume 92, Mean Corpuscular Hemoglobin 30.3, Mean Corpuscular Hemoglobin Concent 32.9, Red Cell Distribution Width 16.0H, Platelet Count 167, Mean Platelet Volume 7.3, Neutrophils (%) (Auto) 66.9, Lymphocytes (%) (Auto) 25.6, Monocytes (%) (Auto) 6.3, Eosinophils (%) (Auto) 0.1, Basophils (%) (Auto) 1.2, Prothrombin Time 12.0H, Prothromb Time International Ratio 1.1, Activated Partial Thromboplast Time 30, Sodium Level 138, Potassium Level 4.7, Chloride Level 107, Carbon Dioxide Level 19L, Anion Gap 12, Blood Urea Nitrogen 31H, Creatinine 1.5H, Estimat Glomerular Filtration Rate , Glucose Level 225H, Calcium Level 8.7, Ferritin 535H, Total Bilirubin 2.0H, Direct Bilirubin 0.6H, Aspartate Amino Transf (AST/SGOT) 23, Alanine Aminotransferase (ALT/SGPT) 24, Alkaline Phosphatase 726H, Troponin I 0.353H, Pro-B-Type Natriuretic Peptide 25402V, Total Protein 7.3, Albumin 2.3L, Globulin 5.0, Albumin/Globulin Ratio 0.5L, Amylase Level 426H, Lipase 94, Thyroid Stimulating Hormone (TSH) 1.988, Free Thyroxine 1.21 12/17/18 11:30: Troponin I 0.348H Height (Feet): 5 Height (Inches): 7.00 Weight (Pounds): 119 General Appearance: lethargic EENT: normal ENT inspection Neck: normal alignment Cardiovascular: normal peripheral pulses, normal rate, regular rhythm Respiratory/Chest: chest wall non-tender, lungs clear, normal breath sounds Abdomen: normal bowel sounds, non tender, soft Extremities: normal inspection Edema: no edema noted Arm (L), no edema noted Arm (R), no edema noted Leg (L), no edema noted Leg (R), no edema noted Pedal (L), no edema noted Pedal (R), no edema noted Generalized Neurologic: motor weakness Skin: normal pigmentation, warm/dry Landry Green DO Dec 17, 2018 13:30
--- NOTE | 2018-12-17 13:49 | NUR ---
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 97.9, P 104, Resp. 36 BUN 31, CR 1.5, Trop0.353, BNP 78765, Alk Phos 726 Abdominal X-Ray Iimpression: NGT in place IS:NS IV 75cc/hr Cardizem GTT Xopenex Zosyn ICU Status
--- NOTE | 2018-12-17 14:00 | NUR ---
NURSE NOTES: Family at bedside, Ativan given PRN- will continue plan of care.
--- NOTE | 2018-12-17 14:22 | NUR ---
12/17..Concerning CT Abd/pelvis..Still unstable, respiratory distress per SARAI Rodríguez. 14:22 [email or web address]
[2018-12-17] MEDS ORDERED: LORazepam Inj 2mg/ml 1ml IV PRN (14:30)
[2018-12-17] MEDS: LORazepam Inj 2mg/ml 1ml IV PRN (14:34)
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
--- NOTE | 2018-12-17 15:34 | Cardiac Electrophysiology PN ---
Assessment/Plan Assessment/Plan 1. Atrial fibrillation with rapid ventricular response. The patient has no history of prior cardiac condition. This could have been precipitated due to the patient's profound anemia with hemoglobin of 3.5. Echocardiogram showed ejection fraction of 45% with moderate to severe pulmonary hypertension. DC Cardizem drip. Start Lopressor 50 bid Off anticoagulations for gastrointestinal bleed and hemoglobin 3.5. 2. Troponin leak due to atrial fib with RVR 3. Hypertension. Continue Cardizem drip. 4. Profound anemia, hemoglobin of 3.5. The patient was evaluated by Dr. Caruso and Berkley. Likely would need EGD and colonoscopy for further evaluation. 5. Respiratory failure, intubated per Dr. Emerson. 6 . Mild azotemia, BUN of 20, creatinine 1.0. RADHA RN Subjective Subjective In ICU on Cardizem drip 2.5 mg/hr. On the Vent. at bedside Objective Last 24 Hour Vital Signs Date Time Temp Pulse Resp B/P (MAP) Pulse Ox O2 Delivery O2 Flow Rate FiO2 12/17/18 15:00 101 27 101/80 (87) 90 12/17/18 14:00 102 30 99/79 (86) 90 12/17/18 13:00 99 27 101/63 (76) 89 12/17/18 13:00 105 34 100 12/17/18 12:00 99 12/17/18 12:00 Mechanical Ventilator 12/17/18 12:00 100 12/17/18 12:00 99.0 90 29 110/70 (83) 90 12/17/18 11:00 99 34 129/63 (85) 83 12/17/18 10:47 105 34 100 12/17/18 10:00 103 129/63 12/17/18 10:00 103 34 121/69 (86) 83 12/17/18 09:06 103 31 100 12/17/18 09:00 100 34 115/75 (88) 83 12/17/18 08:00 Bi-pap 12/17/18 08:00 100 12/17/18 08:00 82 12/17/18 08:00 99.0 99 29 119/70 (86) 94 12/17/18 07:19 99 33 100 12/17/18 07:00 104 34 110/87 (95) 83 12/17/18 06:00 103 34 139/87 (104) 83 12/17/18 05:30 103 33 131/92 (105) 86 12/17/18 05:20 99 36 100 12/17/18 05:00 102 29 152/89 (110) 85 12/17/18 04:30 96 36 135/81 (99) 92 12/17/18 04:00 87 12/17/18 04:00 97.9 84 29 103/70 (81) 94 12/17/18 04:00 Bi-pap 12/17/18 04:00 100 12/17/18 03:30 85 28 107/76 (86) 12/17/18 03:00 92 29 101/66 (78) 86 12/17/18 03:00 100 12/17/18 02:57 81 28 100 12/17/18 02:30 95 24 131/79 (96) 95 12/17/18 02:00 96 24 126/85 (99) 95 12/17/18 01:30 96 24 134/84 (101) 95 12/17/18 01:27 92 32 95 Full Face 100 12/17/18 00:00 103 12/17/18 00:00 97.9 95 19 117/88 (98) 89 12/17/18 00:00 Bi-pap 12/16/18 23:45 99 24 123/75 (91) 95 12/16/18 23:30 99 25 136/81 (99) 94 12/16/18 23:15 103 28 134/88 (103) 99 12/16/18 23:10 103 31 96 Full Face 100 12/16/18 23:00 101 25 138/77 (97) 95 12/16/18 22:45 108 28 145/77 (99) 90 12/16/18 22:30 105 27 146/82 (103) 93 12/16/18 22:15 97 25 129/85 (100) 95 12/16/18 22:00 93 25 121/87 (98) 96 12/16/18 21:30 100 28 121/87 (98) 98 12/16/18 21:10 94 32 98 Full Face 100 12/16/18 21:00 93 22 126/79 (95) 98 12/16/18 20:30 95 22 126/79 (95) 100 12/16/18 20:00 Bi-pap 12/16/18 20:00 94 12/16/18 20:00 97.9 99 17 115/73 (87) 100 12/16/18 19:30 100 17 115/73 (87) 100 12/16/18 19:00 108 33 142/94 (110) 89 12/16/18 18:55 92 31 100 Full Face 100 12/16/18 18:00 114 31 144/92 (109) 100 12/16/18 17:58 123 30 100 Bi-pap 100 12/16/18 17:55 148 32 100 Full Face 100 12/16/18 17:50 100 12/16/18 17:50 122 30 100 Bi-pap 100 12/16/18 17:20 141 35 100 Full Face 100 12/16/18 17:00 107 30 137/94 (108) 100 12/16/18 16:00 Nasal Cannula 2.0 12/16/18 16:00 98.4 98 27 113/85 (94) 100 12/16/18 16:00 85 12/16/18 15:30 133 24 100 Full Face 100 Intake and Output 12/16/18 12/17/18 19:00 07:00 Intake Total 670.0 ml 845.0 ml Output Total 450 ml 400 ml Balance 220.0 ml 445.0 ml IV Total 670.0 ml 845.0 ml Output Urine Total 450 ml 400 ml # Bowel Movements 1 1 Laboratory Tests Test 12/16/18 17:20 12/16/18 20:30 12/17/18 02:23 12/17/18 04:20 Arterial Blood pH 7.347 (7.350-7.450) 7.165 (7.350-7.450) 7.364 (7.350-7.450) Arterial Blood Partial Pressure CO2 28.9 mmHg (35.0-45.0) L 51.1 mmHg (35.0-45.0) H 28.8 mmHg (35.0-45.0) L Arterial Blood Partial Pressure O2 107.5 mmHg (75.0-100.0) H 74.1 mmHg (75.0-100.0) L 55.4 mmHg (75.0-100.0) L Arterial Blood HCO3 15.5 mmol/L (22.0-26.0) *L 18.0 mmol/L (22.0-26.0) L 16.1 mmol/L (22.0-26.0) *L Arterial Blood Oxygen Saturation 97.0 % (95-100) 90.5 % (95-100) L 86.9 % (95-100) *L Arterial Blood Base Excess -8.9 (-2-2) L -10.4 (-2-2) *L -8.1 (-2-2) L Remberto Test Positive Positive Positive Stool Occult Blood Positive (NEGATIVE) Test 12/17/18 05:30 12/17/18 06:00 12/17/18 11:30 White Blood Count 4.7 K/UL (4.8-10.8) L Red Blood Count 3.70 M/UL (4.70-6.10) L Hemoglobin 11.2 G/DL (14.2-18.0) L Hematocrit 34.2 % (42.0-52.0) L Mean Corpuscular Volume 92 FL (80-99) Mean Corpuscular Hemoglobin 30.3 PG (27.0-31.0) Mean Corpuscular Hemoglobin Concent 32.9 G/DL (32.0-36.0) Red Cell Distribution Width 16.0 % (11.6-14.8) H Platelet Count 167 K/UL (150-450) Mean Platelet Volume 7.3 FL (6.5-10.1) Neutrophils (%) (Auto) 66.9 % (45.0-75.0) Lymphocytes (%) (Auto) 25.6 % (20.0-45.0) Monocytes (%) (Auto) 6.3 % (1.0-10.0) Eosinophils (%) (Auto) 0.1 % (0.0-3.0) Basophils (%) (Auto) 1.2 % (0.0-2.0) Prothrombin Time 12.0 SEC (9.30-11.50) H Prothromb Time International Ratio 1.1 (0.9-1.1) Activated Partial Thromboplast Time 30 SEC (23-33) Sodium Level 138 MMOL/L (136-145) Potassium Level 4.7 MMOL/L (3.5-5.1) Chloride Level 107 MMOL/L (98-107) Carbon Dioxide Level 19 MMOL/L (21-32) L Anion Gap 12 mmol/L (5-15) Blood Urea Nitrogen 31 mg/dL (7-18) H Creatinine 1.5 MG/DL (0.55-1.30) H Estimat Glomerular Filtration Rate mL/min (>60) Glucose Level 225 MG/DL (74-106) H Calcium Level 8.7 MG/DL (8.5-10.1) Ferritin 535 NG/ML (8-388) H Total Bilirubin 2.0 MG/DL (0.2-1.0) H Direct Bilirubin 0.6 MG/DL (0.0-0.3) H Aspartate Amino Transf (AST/SGOT) 23 U/L (15-37) Alanine Aminotransferase (ALT/SGPT) 24 U/L (12-78) Alkaline Phosphatase 726 U/L (46-116) H Troponin I 0.353 ng/mL (0.000-0.056) 0.348 ng/mL (0.000-0.056) Pro-B-Type Natriuretic Peptide 76644 pg/mL (0-125) H Total Protein 7.3 G/DL (6.4-8.2) Albumin 2.3 G/DL (3.4-5.0) L Globulin 5.0 g/dL Albumin/Globulin Ratio 0.5 (1.0-2.7) L Amylase Level 426 U/L (25-115) H Lipase 94 U/L (73-393) Thyroid Stimulating Hormone (TSH) 1.988 uiU/mL (0.358-3.740) Free Thyroxine 1.21 NG/DL (0.76-1.46) HIV (1&2) Antibody Rapid Pending Microbiology Date/Time Source Procedure Growth Status 12/16/18 05:00 Rectum Received Objective HEAD AND NECK: No JVD on the vent LUNGS: Coarse rhonchi. CARDIOVASCULAR: Regular S1 and S2 with no gallop or murmur. Tachycardic. ABDOMEN: Soft. EXTREMITIES: No pitting edema. Shantanu Mcmillan MD Dec 17, 2018 15:34
--- NOTE | 2018-12-17 16:00 | NUR ---
NURSE NOTES: Changed and repositioned patient. Changed arriaga pouch. Pt resting, vitals stable. will continue plan of care.
--- NOTE | 2018-12-17 16:07 | Diagnostic Imaging Report ---
Indication: Post intubation Technique: One view of the chest Comparison: 12/16/2018 Findings: Interim endotracheal intubation, endotracheal tube tip projected approximately 3 cm above the valeria in good position. Extensive and diffuse bilateral interstitial and airspace disease persists, unchanged. 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
[2018-12-17] MEDS ORDERED: NS 275ml ONE (16:53)
[2018-12-17] MEDS ORDERED: D5NS 1000ml IV ONE (16:53)
[2018-12-17] MEDS ORDERED: Tubing IV Secondary IV ONE (16:53)
[2018-12-17] MEDS ORDERED: Tubing Blood Filter IV ONE (17:09)
--- NOTE | 2018-12-17 18:57 | NUR ---
RESPIRATORY NOTE: Received pt on AC 16, 600VT, 40%, PEEP +5. Pt intubated w/ ETT 7.5 @ 22cm lipline, secured by anchorfast. Pt asleep, restless, responds to stimuli. B/S [place]. rhonchi, sxn small to moderate amounts of thick, pale-yellow secretions. Both hands on soft restraints to prevent pt from self-extubating. Vent plugged into red outlet, ambubag at bedside. Will continue to monitor pt.
--- NOTE | 2018-12-17 19:02 | NUR ---
HAND-OFF: Report given to SARAI Mclaughlin.
--- NOTE | 2018-12-17 19:03 | NUR ---
NURSE NOTES: Endorsement received from SARAI Rodríguez. Patient orally intubated with ET 7.5, 22 lipline. AC 16, VT 600, PEEP 5 40% FiO2. OGT patent and intact. On NPO. With left hand g 20, right forearm g20. Ongoing NS 75ml/hr. With bilateral soft wrist restraints. Male external urinary pouch present and intact. Head of bed elevated. Bed alarm on. Bed locked and in low position.
[2018-12-17] MEDS ORDERED: Metoprolol Tartrate 50mg tab NG SCH (21:00)
--- NOTE | 2018-12-17 21:00 | NUR ---
NURSE NOTES: Secretions suctioned. Oral care done.
--- NOTE | 2018-12-17 23:00 | NUR ---
NURSE NOTES: Patient asleep. Afib on the monitor.
[2018-12-18] VITALS (30 sets, daily range): BP systolic 80–141; BP diastolic 46–96
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
--- NOTE | 2018-12-18 01:00 | NUR ---
NURSE NOTES: No shortness of breath. Afebrile
[2018-12-18] MEDS: LORazepam Inj 2mg/ml 1ml IV PRN ×3 (01:18→16:20)
--- NOTE | 2018-12-18 03:39 | NUR ---
NURSE NOTES: Bed bath, oral care, change of linens done.
--- NOTE | 2018-12-18 05:00 | NUR ---
NURSE NOTES: Informed regarding patient's heart rate 120s-150s, Afib. Cardizem drip discontinued as ordered, on metoprolol BID. Awaiting for return call.
[2018-12-18] MEDS: Piperacillin/Tazobactam 3.375 GM in NS 110 ML IVPB SCH ×3 (05:54→21:48)
--- NOTE | 2018-12-18 06:10 | NUR ---
NURSE NOTES: Received new order from Dr. Mcmillan to increase metoprolol to 100mg BID
--- NOTE | 2018-12-18 07:00 | NUR ---
Received Patient on Vent settings of AC 16, VT 600, FIO2 60%, PEEP +5. Pt intubated with ETT 7.5 at 22cm lipline, secured by anchorfast. Breath sounds rhonchi bilaterally, sxn moderate amounts of thick yellow secretions. Vent plugged into red outlet, ambubag at bedside. Pt resting comfortably, in no apparent distress at this time. Will continue to monitor patient.
--- NOTE | 2018-12-18 07:15 | NUR ---
NURSE NOTES: Received patient from SARAI Mclaughlin. pt is drowsy but is able to arouse and responds to tactile stimuli. Orally intubated, ETT 7.5/22cm at lip line; AC 16/TV 600/Fio2 40%/PEEP +5, SPO2 87%, RR 30. Increased FIo2 to 60%, now Spo2 98%, RR 20. Flakita heard bilateral b/s. Secretions are copious, white and thick. Afebrile. OGT noted, clamped and NPO. US ABD scheduled today. patient is in Afib-RVR, HR 130-160's, will notify Dr. Mcmillan. Bilateral soft wrist restraints in place; skin intact. Scrotal edema noted. Pt has a urinary pouch, draining well. Right inguinal hernia noted. x2 RFA 20g noted running NS@75ml/hr and Zosyn. Bed locked, alarmed and in lowest position. Will continue plan of care.
--- NOTE | 2018-12-18 07:21 | NUR ---
HAND-OFF: Report given to SARAI Watkins.
--- NOTE | 2018-12-18 07:45 | NUR ---
NURSE NOTES: Notified Dr. Mcmillan of patient's AFIB-RVR, highest HR 163;BP 106/58. Received orders for Cardizem gtt @10mg/hr and titrate to reach 70-80's HR. Read back given and verified.
[2018-12-18 07:55] LABS: BASOPHILS % (AUTO) 0.7 % (0.0-2.0); EOSINOPHILS % (AUTO) 0.2 % (0.0-3.0); HEMATOCRIT 29.3 % (42.0-52.0); HEMOGLOBIN 9.5 G/DL (14.2-18.0); LYMPHOCYTES % (AUTO) 15.2 % (20.0-45.0); MEAN CORPUSCULAR VOLUME 90 FL (80-99); MONOCYTES % (AUTO) 4.3 % (1.0-10.0); NEUTROPHILS % (AUTO) 79.6 % (45.0-75.0); PLATELET COUNT 126 K/UL (150-450); RED BLOOD COUNT 3.27 M/UL (4.70-6.10); RED CELL DISTRIBUTION WIDTH 16.5 % (11.6-14.8); WHITE BLOOD COUNT 6.1 K/UL (4.8-10.8)
[2018-12-18 07:56] LABS: PHOSPHORUS 2.2 MG/DL (2.5-4.9)
--- NOTE | 2018-12-18 08:22 | General Progress Note ---
Assessment/Plan Problem List: (1) DM (diabetes mellitus) ICD Codes: E11.9 - Type 2 diabetes mellitus without complications SNOMED: 00683899 (2) Elevated LFTs ICD Codes: R94.5 - Abnormal results of liver function studies SNOMED: 980601865, 416833372 (3) Dysphagia ICD Codes: R13.10 - Dysphagia, unspecified SNOMED: 94201536, 216039610 (4) Severe anemia ICD Codes: D64.9 - Anemia, unspecified SNOMED: 256298690 (5) Atrial fibrillation with rapid ventricular response ICD Codes: I48.91 - Unspecified atrial fibrillation SNOMED: 467432057614532, 828658712 (6) Respiratory failure with hypoxia ICD Codes: J96.91 - Respiratory failure, unspecified with hypoxia SNOMED: 95620127799368679 Qualifiers: Qualified Codes: J96.01 - Acute respiratory failure with hypoxia Assessment/Plan now intubated NGTF on cardizem drip not stable for GI procedures pending fernandez CT when more stable abd us>>pending for today repeat labs fu GGTP Subjective ROS Limited/Unobtainable: No Allergies: Coded Allergies: No Known Allergies (Unverified , 12/15/18) Objective Last 24 Hour Vital Signs Date Time Temp Pulse Resp B/P (MAP) Pulse Ox O2 Delivery O2 Flow Rate FiO2 12/18/18 07:14 129 30 40 12/18/18 07:00 98.0 143 30 141/96 (111) 100 12/18/18 06:00 131 30 108/53 (71) 92 12/18/18 05:08 135 32 40 12/18/18 05:00 141 33 138/63 (88) 84 12/18/18 04:00 120 12/18/18 04:00 40 12/18/18 04:00 99.0 131 29 104/66 (79) 97 12/18/18 04:00 Mechanical Ventilator 12/18/18 03:30 129 28 118/86 (97) 97 12/18/18 03:18 128 31 40 12/18/18 03:00 122 31 101/73 (82) 97 12/18/18 02:00 130 31 114/61 (78) 95 12/18/18 01:11 131 41 40 12/18/18 01:00 126 35 131/67 (88) 90 12/18/18 00:00 Mechanical Ventilator 12/18/18 00:00 136 12/18/18 00:00 40 12/18/18 00:00 98.9 126 35 131/67 (88) 90 12/17/18 23:30 126 30 125/83 (97) 90 12/17/18 23:00 124 33 40 12/17/18 23:00 120 33 122/66 (84) 90 12/17/18 22:00 118 36 127/71 (89) 90 12/17/18 21:08 132 33 40 12/17/18 21:06 127 130/62 12/17/18 21:00 127 31 130/62 (84) 90 12/17/18 20:00 40 12/17/18 20:00 Mechanical Ventilator 12/17/18 20:00 129 12/17/18 20:00 99.0 129 36 129/69 (89) 90 12/17/18 19:00 99 27 110/48 (68) 90 12/17/18 18:54 100 25 40 12/17/18 18:00 101 27 117/66 (83) 90 12/17/18 17:00 102 29 40 12/17/18 17:00 100 27 106/80 (89) 90 12/17/18 16:00 40 12/17/18 16:00 101 12/17/18 16:00 Mechanical Ventilator 12/17/18 16:00 99.0 98 29 110/70 (83) 90 12/17/18 15:23 102 33 50 12/17/18 15:00 101 27 101/80 (87) 90 12/17/18 14:00 102 30 99/79 (86) 90 12/17/18 13:00 99 27 101/63 (76) 89 12/17/18 13:00 105 34 100 12/17/18 12:00 99 12/17/18 12:00 Mechanical Ventilator 12/17/18 12:00 80 12/17/18 12:00 99.0 90 29 110/70 (83) 90 12/17/18 11:00 99 34 129/63 (85) 83 12/17/18 10:47 105 34 100 12/17/18 10:00 103 129/63 12/17/18 10:00 103 34 121/69 (86) 83 12/17/18 09:06 103 31 100 12/17/18 09:00 100 34 115/75 (88) 83 Intake and Output 12/17/18 12/18/18 18:59 06:59 Intake Total 210 ml 780 ml Output Total 900 ml Balance -690 ml 780 ml IV Total 75 ml 750 ml Tube Feeding 135 ml 30 ml Output Urine Total 900 ml # Voids 2 Laboratory Tests 12/17/18 11:30: Troponin I 0.348H 12/17/18 11:33: Hepatitis A IgM Antibody [Pending], Hepatitis B Surface Antigen [Pending], Hepatitis B Core IgM Antibody [Pending], Hepatitis C Antibody [Pending] 12/18/18 06:33: White Blood Count 6.1, Red Blood Count 3.27L, Hemoglobin 9.5L, Hematocrit 29.3L , Mean Corpuscular Volume 90, Mean Corpuscular Hemoglobin 29.0, Mean Corpuscular Hemoglobin Concent 32.4, Red Cell Distribution Width 16.5H, Platelet Count 126L, Mean Platelet Volume 6.4L, Neutrophils (%) (Auto) 79.6H, Lymphocytes (%) (Auto) 15.2L, Monocytes (%) (Auto) 4.3, Eosinophils (%) (Auto) 0.2, Basophils (%) (Auto) 0.7, Sodium Level [Pending], Potassium Level [Pending] , Chloride Level [Pending], Carbon Dioxide Level [Pending], Blood Urea Nitrogen [Pending], Creatinine [Pending], Estimat Glomerular Filtration Rate [Pending], Glucose Level [Pending], Calcium Level [Pending], Phosphorus Level 2.2L, Magnesium Level 2.2, Total Bilirubin [Pending], Gamma Glutamyl Transpeptidase [ Pending], Aspartate Amino Transf (AST/SGOT) [Pending], Alanine Aminotransferase (ALT/SGPT) [Pending], Alkaline Phosphatase [Pending], Ammonia [Pending], Total Protein [Pending], Albumin [Pending], Globulin [Pending] Height (Feet): 5 Height (Inches): 7.00 Weight (Pounds): 119 General Appearance: lethargic EENT: normal ENT inspection Neck: supple Cardiovascular: tachycardia Respiratory/Chest: decreased breath sounds Abdomen: normal bowel sounds, non tender, soft, other - large right ingunal hernia Extremities: non-tender Mike Caruso MD Dec 18, 2018 08:21
[2018-12-18 08:38] LABS: AMMONIA 35 umol/L (11-32)
--- NOTE | 2018-12-18 09:00 | NUR ---
NURSE NOTES: Held Metoprolol due to low blood pressure: 90/56, Dr. Mcmillan notified.
[2018-12-18] MEDS: Pantoprazole Inj IV SCH (09:08)
--- NOTE | 2018-12-18 09:25 | General Progress Note ---
Assessment/Plan Problem List: (1) Respiratory failure with hypoxia ICD Codes: J96.91 - Respiratory failure, unspecified with hypoxia SNOMED: 26631929733234667 Qualifiers: Qualified Codes: J96.01 - Acute respiratory failure with hypoxia (2) Atrial fibrillation with rapid ventricular response ICD Codes: I48.91 - Unspecified atrial fibrillation SNOMED: 842297075642535, 028509244 (3) Severe anemia ICD Codes: D64.9 - Anemia, unspecified SNOMED: 594889210 (4) ATN (acute tubular necrosis) ICD Codes: N17.0 - Acute kidney failure with tubular necrosis SNOMED: 57005982 (5) DM (diabetes mellitus) ICD Codes: E11.9 - Type 2 diabetes mellitus without complications SNOMED: 44695390 Status: unchanged Assessment/Plan vent transfuse prn cardio heme eval f/u cbc bmp am Subjective Constitutional: Reports: weakness Allergies: Coded Allergies: No Known Allergies (Unverified , 12/15/18) All Systems: reviewed and negative except above Subjective intub sedated in icu Objective Last 24 Hour Vital Signs Date Time Temp Pulse Resp B/P (MAP) Pulse Ox O2 Delivery O2 Flow Rate FiO2 12/18/18 09:00 158 113/77 12/18/18 08:54 158 113/77 12/18/18 07:14 129 30 40 12/18/18 07:00 98.0 143 30 141/96 (111) 100 12/18/18 06:00 131 30 108/53 (71) 92 12/18/18 05:08 135 32 40 12/18/18 05:00 141 33 138/63 (88) 84 12/18/18 04:00 120 12/18/18 04:00 40 12/18/18 04:00 99.0 131 29 104/66 (79) 97 12/18/18 04:00 Mechanical Ventilator 12/18/18 03:30 129 28 118/86 (97) 97 12/18/18 03:18 128 31 40 12/18/18 03:00 122 31 101/73 (82) 97 12/18/18 02:00 130 31 114/61 (78) 95 12/18/18 01:11 131 41 40 12/18/18 01:00 126 35 131/67 (88) 90 12/18/18 00:00 Mechanical Ventilator 12/18/18 00:00 136 12/18/18 00:00 40 12/18/18 00:00 98.9 126 35 131/67 (88) 90 12/17/18 23:30 126 30 125/83 (97) 90 12/17/18 23:00 124 33 40 12/17/18 23:00 120 33 122/66 (84) 90 12/17/18 22:00 118 36 127/71 (89) 90 12/17/18 21:08 132 33 40 12/17/18 21:06 127 130/62 12/17/18 21:00 127 31 130/62 (84) 90 12/17/18 20:00 40 12/17/18 20:00 Mechanical Ventilator 12/17/18 20:00 129 12/17/18 20:00 99.0 129 36 129/69 (89) 90 12/17/18 19:00 99 27 110/48 (68) 90 12/17/18 18:54 100 25 40 12/17/18 18:00 101 27 117/66 (83) 90 12/17/18 17:00 102 29 40 12/17/18 17:00 100 27 106/80 (89) 90 12/17/18 16:00 40 12/17/18 16:00 101 12/17/18 16:00 Mechanical Ventilator 12/17/18 16:00 99.0 98 29 110/70 (83) 90 12/17/18 15:23 102 33 50 12/17/18 15:00 101 27 101/80 (87) 90 12/17/18 14:00 102 30 99/79 (86) 90 12/17/18 13:00 99 27 101/63 (76) 89 12/17/18 13:00 105 34 100 12/17/18 12:00 99 12/17/18 12:00 Mechanical Ventilator 12/17/18 12:00 80 12/17/18 12:00 99.0 90 29 110/70 (83) 90 12/17/18 11:00 99 34 129/63 (85) 83 12/17/18 10:47 105 34 100 12/17/18 10:00 103 129/63 12/17/18 10:00 103 34 121/69 (86) 83 Intake and Output 12/17/18 12/18/18 19:00 07:00 Intake Total 315 ml 675 ml Output Total 900 ml Balance -585 ml 675 ml IV Total 150 ml 675 ml Tube Feeding 165 ml Output Urine Total 900 ml # Voids 2 Laboratory Tests 12/17/18 11:30: Troponin I 0.348H 12/17/18 11:33: Hepatitis A IgM Antibody Negative, Hepatitis B Surface Antigen Negative, Hepatitis B Core IgM Antibody Negative, Hepatitis C Antibody <0.1 12/18/18 06:33: White Blood Count 6.1, Red Blood Count 3.27L, Hemoglobin 9.5L, Hematocrit 29.3L , Mean Corpuscular Volume 90, Mean Corpuscular Hemoglobin 29.0, Mean Corpuscular Hemoglobin Concent 32.4, Red Cell Distribution Width 16.5H, Platelet Count 126L, Mean Platelet Volume 6.4L, Neutrophils (%) (Auto) 79.6H, Lymphocytes (%) (Auto) 15.2L, Monocytes (%) (Auto) 4.3, Eosinophils (%) (Auto) 0.2, Basophils (%) (Auto) 0.7, Sodium Level [Pending], Potassium Level [Pending] , Chloride Level [Pending], Carbon Dioxide Level [Pending], Blood Urea Nitrogen [Pending], Creatinine [Pending], Estimat Glomerular Filtration Rate [Pending], Glucose Level [Pending], Calcium Level [Pending], Phosphorus Level 2.2L, Magnesium Level 2.2, Total Bilirubin [Pending], Gamma Glutamyl Transpeptidase [ Pending], Aspartate Amino Transf (AST/SGOT) [Pending], Alanine Aminotransferase (ALT/SGPT) [Pending], Alkaline Phosphatase [Pending], Ammonia 35H, Total Protein [Pending], Albumin [Pending], Globulin [Pending] 12/18/18 09:00: Arterial Blood pH 7.454H, Arterial Blood Partial Pressure CO2 22.9*L, Arterial Blood Partial Pressure O2 66.3L, Arterial Blood HCO3 15.7*L, Arterial Blood Oxygen Saturation 92.5L, Arterial Blood Base Excess -6.6L, Remberto Test Positive Height (Feet): 5 Height (Inches): 7.00 Weight (Pounds): 119 General Appearance: lethargic EENT: normal ENT inspection Neck: normal alignment Cardiovascular: normal peripheral pulses, normal rate, regular rhythm Respiratory/Chest: chest wall non-tender, lungs clear, normal breath sounds Abdomen: normal bowel sounds, non tender, soft Extremities: normal inspection Edema: no edema noted Arm (L), no edema noted Arm (R), no edema noted Leg (L), no edema noted Leg (R), no edema noted Pedal (L), no edema noted Pedal (R), no edema noted Generalized Neurologic: motor weakness Skin: normal pigmentation, warm/dry Landry Green DO Dec 18, 2018 09:25
[2018-12-18 09:33] LABS: ALANINE AMINOTRANSFERASE 19 U/L (12-78); ALBUMIN 1.8 G/DL (3.4-5.0); ALBUMIN/GLOBULIN RATIO 0.4 (1.0-2.7); ALKALINE PHOSPHATASE 464 U/L (46-116); ANION GAP 16 mmol/L (5-15); ASPARTATE AMINO TRANSFERASE 26 U/L (15-37); BILIRUBIN,TOTAL 1.6 MG/DL (0.2-1.0); BLOOD UREA NITROGEN 32 mg/dL (7-18); CALCIUM 8.3 MG/DL (8.5-10.1); CARBON DIOXIDE 15 MMOL/L (21-32); CHLORIDE 112 MMOL/L (98-107); CREATININE 1.2 MG/DL (0.55-1.30); GAMMA GLUTAMYL TRANSPEPTIDASE 120 U/L (5-85); POTASSIUM 4.1 MMOL/L (3.5-5.1); SODIUM 143 MMOL/L (136-145)
[2018-12-18 09:37] LABS: BILIRUBIN,DIRECT 0.5 MG/DL (0.0-0.3)
--- NOTE | 2018-12-18 09:56 | Pulmonolgy Critical Care Note ---
Critical Care - Asmt/Plan Problems: (1) Severe anemia (2) Atrial fibrillation with rapid ventricular response (3) ATN (acute tubular necrosis) Respiratory: monitor respiratory rate, adjust FIO2, CXR Cardiac: continue to monitor HR/BP Renal: F/U I&O, keep IV fluid Infectious Disease: check cultures, continue antibiotics Gastrointestinal: continue feedings/current rate Endocrine: monitor blood sugar, check HgA1C Hematologic: transfuse if hgb<8.5 Neurologic: PRN Ativan, PRN Morphine, keep patient comfortable Prophylaxis: Protonix Disposition: keep in ICU Notes Reviewed: settlement agent, cardio, renal Discussed with: nurses, consultants, case operator, family member Critical Care - Objective Last 24 Hour Vital Signs Date Time Temp Pulse Resp B/P (MAP) Pulse Ox O2 Delivery O2 Flow Rate FiO2 12/18/18 09:22 136 29 60 12/18/18 09:00 158 113/77 12/18/18 08:54 158 113/77 12/18/18 08:00 60 12/18/18 08:00 Mechanical Ventilator 12/18/18 07:14 129 30 40 12/18/18 07:00 98.0 143 30 141/96 (111) 100 12/18/18 06:00 131 30 108/53 (71) 92 12/18/18 05:08 135 32 40 12/18/18 05:00 141 33 138/63 (88) 84 12/18/18 04:00 120 12/18/18 04:00 40 12/18/18 04:00 99.0 131 29 104/66 (79) 97 12/18/18 04:00 Mechanical Ventilator 12/18/18 03:30 129 28 118/86 (97) 97 12/18/18 03:18 128 31 40 12/18/18 03:00 122 31 101/73 (82) 97 12/18/18 02:00 130 31 114/61 (78) 95 12/18/18 01:11 131 41 40 12/18/18 01:00 126 35 131/67 (88) 90 12/18/18 00:00 Mechanical Ventilator 12/18/18 00:00 136 12/18/18 00:00 40 12/18/18 00:00 98.9 126 35 131/67 (88) 90 12/17/18 23:30 126 30 125/83 (97) 90 12/17/18 23:00 124 33 40 12/17/18 23:00 120 33 122/66 (84) 90 12/17/18 22:00 118 36 127/71 (89) 90 12/17/18 21:08 132 33 40 12/17/18 21:06 127 130/62 12/17/18 21:00 127 31 130/62 (84) 90 12/17/18 20:00 40 12/17/18 20:00 Mechanical Ventilator 12/17/18 20:00 129 12/17/18 20:00 99.0 129 36 129/69 (89) 90 12/17/18 19:00 99 27 110/48 (68) 90 12/17/18 18:54 100 25 40 12/17/18 18:00 101 27 117/66 (83) 90 12/17/18 17:00 102 29 40 12/17/18 17:00 100 27 106/80 (89) 90 12/17/18 16:00 40 12/17/18 16:00 101 12/17/18 16:00 Mechanical Ventilator 12/17/18 16:00 99.0 98 29 110/70 (83) 90 12/17/18 15:23 102 33 50 12/17/18 15:00 101 27 101/80 (87) 90 12/17/18 14:00 102 30 99/79 (86) 90 12/17/18 13:00 99 27 101/63 (76) 89 12/17/18 13:00 105 34 100 12/17/18 12:00 99 12/17/18 12:00 Mechanical Ventilator 12/17/18 12:00 80 12/17/18 12:00 99.0 90 29 110/70 (83) 90 12/17/18 11:00 99 34 129/63 (85) 83 12/17/18 10:47 105 34 100 12/17/18 10:00 103 129/63 12/17/18 10:00 103 34 121/69 (86) 83 Status: sedated Condition: critical Lungs: chest wall tender Heart: HR/BP stable, HR/BP unstable Abdomen: non-tender, active bowel sounds Extremities: no C/C/E, edema Decubiti: stage Micro: Microbiology Date/Time Source Procedure Growth Status 12/16/18 05:00 Nose MRSA Culture - Final NO METHICILLIN RESISTANT STAPH AUREUS... Complete 12/16/18 05:00 Rectum - Final NO CARBAPENEM-RESISTANT ENTEROBACTERI... Complete 12/16/18 05:00 Rectum VRE Culture - Final NO VANCOMYCIN RESISTANT ENTEROCOCCUS ... Complete Critical Care - Subjective ROS Limited/Unobtainable: Yes Interval Events: cardizem drip started again FI02: 60 Vent Support Breath Rate: 16 Vent Support Mode: AC Vent Tidal Volume: 600 Sputum Amount: Small PEEP: 5.0 PIP: 36 Tube Feeding Amount: 30 I&O: Intake and Output 12/17/18 12/18/18 19:00 07:00 Intake Total 315 ml 675 ml Output Total 900 ml Balance -585 ml 675 ml IV Total 150 ml 675 ml Tube Feeding 165 ml Output Urine Total 900 ml # Voids 2 CXR: extensive infiltrate ET-Tube: 7.5 ET Position: 22 Labs: Laboratory Tests Test 12/17/18 11:30 12/17/18 11:33 12/18/18 06:33 12/18/18 09:00 Troponin I 0.348 ng/mL (0.000-0.056) Hepatitis A IgM Antibody Negative (Negative) Hepatitis B Surface Antigen Negative (Negative) Hepatitis B Core IgM Antibody Negative (Negative) Hepatitis C Antibody <0.1 s/co ratio White Blood Count 6.1 K/UL (4.8-10.8) Red Blood Count 3.27 M/UL (4.70-6.10) L Hemoglobin 9.5 G/DL (14.2-18.0) L Hematocrit 29.3 % (42.0-52.0) L Mean Corpuscular Volume 90 FL (80-99) Mean Corpuscular Hemoglobin 29.0 PG (27.0-31.0) Mean Corpuscular Hemoglobin Concent 32.4 G/DL (32.0-36.0) Red Cell Distribution Width 16.5 % (11.6-14.8) H Platelet Count 126 K/UL (150-450) L Mean Platelet Volume 6.4 FL (6.5-10.1) L Neutrophils (%) (Auto) 79.6 % (45.0-75.0) H Lymphocytes (%) (Auto) 15.2 % (20.0-45.0) L Monocytes (%) (Auto) 4.3 % (1.0-10.0) Eosinophils (%) (Auto) 0.2 % (0.0-3.0) Basophils (%) (Auto) 0.7 % (0.0-2.0) Sodium Level 143 MMOL/L (136-145) Potassium Level 4.1 MMOL/L (3.5-5.1) Chloride Level 112 MMOL/L (98-107) H Carbon Dioxide Level 15 MMOL/L (21-32) L Anion Gap 16 mmol/L (5-15) H Blood Urea Nitrogen 32 mg/dL (7-18) H Creatinine 1.2 MG/DL (0.55-1.30) Estimat Glomerular Filtration Rate mL/min (>60) Glucose Level 124 MG/DL (74-106) #H Calcium Level 8.3 MG/DL (8.5-10.1) L Phosphorus Level 2.2 MG/DL (2.5-4.9) L Magnesium Level 2.2 MG/DL (1.8-2.4) Total Bilirubin 1.6 MG/DL (0.2-1.0) H Direct Bilirubin 0.5 MG/DL (0.0-0.3) H Gamma Glutamyl Transpeptidase 120 U/L (5-85) H Aspartate Amino Transf (AST/SGOT) 26 U/L (15-37) Alanine Aminotransferase (ALT/SGPT) 19 U/L (12-78) Alkaline Phosphatase 464 U/L (46-116) H Ammonia 35 umol/L (11-32) H Total Protein 6.0 G/DL (6.4-8.2) L Albumin 1.8 G/DL (3.4-5.0) L Globulin 4.2 g/dL Albumin/Globulin Ratio 0.4 (1.0-2.7) L Arterial Blood pH 7.454 (7.350-7.450) Arterial Blood Partial Pressure CO2 22.9 mmHg (35.0-45.0) *L Arterial Blood Partial Pressure O2 66.3 mmHg (75.0-100.0) L Arterial Blood HCO3 15.7 mmol/L (22.0-26.0) *L Arterial Blood Oxygen Saturation 92.5 % (95-100) L Arterial Blood Base Excess -6.6 (-2-2) L Remberto Test Positive Bryan Emerson MD Dec 18, 2018 09:56
--- NOTE | 2018-12-18 10:01 | NUR ---
NURSE NOTES: Dr. Emerosn ordered to give Ativan now despite low BP 98/63 and cardizem gtt running because patient RR is 36.
--- NOTE | 2018-12-18 10:23 | Diagnostic Imaging Report ---
EXAM: XR Chest, 1 View CLINICAL HISTORY: DYSPNEA TECHNIQUE: Frontal view of the chest. COMPARISON: Chest x-rays dated 12/17/18 FINDINGS: Lungs: No significant change in the diffuse bilateral interstitial and airspace opacities. Pleural space: Unremarkable. The costophrenic angles are sharp. No visible pneumothorax. Heart: Unremarkable. No cardiomegaly. Mediastinum: Unremarkable. Bones/joints: Unremarkable. Tubes, lines and devices: Endotracheal tube tip approximately 3.7 cm above the valeria. Nasogastric tube tip extends below the diaphragm and its tip is not visualized. Telemetry leads overlie the thorax. IMPRESSION: No significant change in the diffuse bilateral interstitial and airspace opacities.
--- NOTE | 2018-12-18 11:27 | Physician Query ---
--------- THIS DOCUMENT IS A PERMANENT PART OF THE MEDICAL RECORD --------- PLEASE COMPLETE DOCUMENT BEFORE SIGNING Dear Dr. Joaquín BLACK Date: 12/18/18 Rn New Graduate/CDS Name: French MONTGOMERY Rn New Graduate/CDS Phone No.: Exercise your independent professional judgment when responding to the query. Questions asked do not imply a particular answer is desired or expected. We greatly appreciate your clarification on this issue. CLINICAL DOCUMENTATION STATES: "Patient complains of shortness of breath with any exertion to include walking. " -- in ED report "Acute hypoxic respiratory failure" - documented in Dr. Green's PN on 12/17/[address] Mcmillan's Consultation note on 12/16/18 CLINICAL FINDINGS SHOW: Patient was intubated on 12/17/18 at 0719am Clarification is needed for one (or more) of the following conditions in order to accurately assign the "present on admission' indicator. Please choose the answer that best indicates whether the associated condition was present at the time of the order for inpatient admission. Thank you. Was the Acute hypoxic respiratory failure Present on admission (POA)? [x] YES [] NO [] Clinically Undeterminable Please also document in your Progress Notes and/or Discharge Summary and indicate if the condition was present on admission. KATY BLACK M.D. DATE & TIME [facility]
--- NOTE | 2018-12-18 11:30 | NUR ---
NURSE NOTES: BP 80/54, HR 91, titrated Cardizem to 5mg/hr. Family at bedside, updated plan of care.
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
--- NOTE | 2018-12-18 15:30 | NUR ---
NURSE NOTES: Ativan 2mg IVP given for agitation
--- NOTE | 2018-12-18 15:37 | NUR ---
NURSE NOTES: Turned and repositioned.TF glucerna 1.2 started via OGT.HOB 35 degrees.
--- NOTE | 2018-12-18 15:45 | Cardiac Electrophysiology PN ---
Assessment/Plan Assessment/Plan 1. Atrial fibrillation with rapid ventricular response. The patient has no history of prior cardiac condition. This could have been precipitated due to the patient's profound anemia with hemoglobin of 3.5. Echocardiogram showed ejection fraction of 45% with moderate to severe pulmonary hypertension. Resumed Cardizem drip. On Lopressor 100 bid Will load Digoxin 0.5 iv x 1 dose and check level in am Off anticoagulations for gastrointestinal bleed and hemoglobin 3.5. 2. Troponin leak due to atrial fib with RVR 3. Hypertension. Continue Cardizem drip and Metoprolol . 4. Profound anemia, hemoglobin of 3.5. The patient was evaluated by Dr. Caruso and Berkley. Likely would need EGD and colonoscopy for further evaluation. 5. Respiratory failure, intubated per Dr. Emerson. 6 . Mild azotemia, BUN of 20, creatinine 1.0. DW RN Subjective Subjective In ICU back on Cardizem drip 8 mg/hr despite high dose BB. On the Vent. Daughter and RN at bedside Objective Last 24 Hour Vital Signs Date Time Temp Pulse Resp B/P (MAP) Pulse Ox O2 Delivery O2 Flow Rate FiO2 12/18/18 14:53 116 31 60 12/18/18 14:00 103 30 113/54 (73) 100 12/18/18 13:08 92 28 60 12/18/18 13:00 94 30 106/62 (77) 100 12/18/18 12:00 80 12/18/18 12:00 Mechanical Ventilator 12/18/18 12:00 98.6 92 30 84/59 (67) 100 12/18/18 11:21 70 12/18/18 11:20 101 32 60 12/18/18 11:00 95 30 80/55 (63) 100 12/18/18 10:00 110 30 89/46 (60) 100 12/18/18 09:22 136 29 60 12/18/18 09:00 158 113/77 12/18/18 09:00 138 32 106/58 (74) 100 12/18/18 08:54 158 113/77 12/18/18 08:00 163 30 100/68 (79) 100 12/18/18 08:00 60 12/18/18 08:00 Mechanical Ventilator 12/18/18 07:14 129 30 40 12/18/18 07:00 98.0 143 30 141/96 (111) 100 12/18/18 06:00 131 30 108/53 (71) 92 12/18/18 05:08 135 32 40 12/18/18 05:00 141 33 138/63 (88) 84 12/18/18 04:00 120 12/18/18 04:00 40 12/18/18 04:00 99.0 131 29 104/66 (79) 97 12/18/18 04:00 Mechanical Ventilator 12/18/18 03:30 129 28 118/86 (97) 97 12/18/18 03:18 128 31 40 12/18/18 03:00 122 31 101/73 (82) 97 12/18/18 02:00 130 31 114/61 (78) 95 12/18/18 01:11 131 41 40 12/18/18 01:00 126 35 131/67 (88) 90 12/18/18 00:00 Mechanical Ventilator 12/18/18 00:00 136 12/18/18 00:00 40 12/18/18 00:00 98.9 126 35 131/67 (88) 90 12/17/18 23:30 126 30 125/83 (97) 90 12/17/18 23:00 124 33 40 12/17/18 23:00 120 33 122/66 (84) 90 12/17/18 22:00 118 36 127/71 (89) 90 12/17/18 21:08 132 33 40 12/17/18 21:06 127 130/62 12/17/18 21:00 127 31 130/62 (84) 90 12/17/18 20:00 40 12/17/18 20:00 Mechanical Ventilator 12/17/18 20:00 129 12/17/18 20:00 99.0 129 36 129/69 (89) 90 12/17/18 19:00 99 27 110/48 (68) 90 12/17/18 18:54 100 25 40 12/17/18 18:00 101 27 117/66 (83) 90 12/17/18 17:00 102 29 40 12/17/18 17:00 100 27 106/80 (89) 90 12/17/18 16:00 40 12/17/18 16:00 101 12/17/18 16:00 Mechanical Ventilator 12/17/18 16:00 99.0 98 29 110/70 (83) 90 Intake and Output 12/17/18 12/18/18 19:00 07:00 Intake Total 315 ml 675 ml Output Total 900 ml Balance -585 ml 675 ml IV Total 150 ml 675 ml Tube Feeding 165 ml Output Urine Total 900 ml # Voids 2 Laboratory Tests Test 12/18/18 06:33 12/18/18 09:00 White Blood Count 6.1 K/UL (4.8-10.8) Red Blood Count 3.27 M/UL (4.70-6.10) L Hemoglobin 9.5 G/DL (14.2-18.0) L Hematocrit 29.3 % (42.0-52.0) L Mean Corpuscular Volume 90 FL (80-99) Mean Corpuscular Hemoglobin 29.0 PG (27.0-31.0) Mean Corpuscular Hemoglobin Concent 32.4 G/DL (32.0-36.0) Red Cell Distribution Width 16.5 % (11.6-14.8) H Platelet Count 126 K/UL (150-450) L Mean Platelet Volume 6.4 FL (6.5-10.1) L Neutrophils (%) (Auto) 79.6 % (45.0-75.0) H Lymphocytes (%) (Auto) 15.2 % (20.0-45.0) L Monocytes (%) (Auto) 4.3 % (1.0-10.0) Eosinophils (%) (Auto) 0.2 % (0.0-3.0) Basophils (%) (Auto) 0.7 % (0.0-2.0) Sodium Level 143 MMOL/L (136-145) Potassium Level 4.1 MMOL/L (3.5-5.1) Chloride Level 112 MMOL/L (98-107) H Carbon Dioxide Level 15 MMOL/L (21-32) L Anion Gap 16 mmol/L (5-15) H Blood Urea Nitrogen 32 mg/dL (7-18) H Creatinine 1.2 MG/DL (0.55-1.30) Estimat Glomerular Filtration Rate mL/min (>60) Glucose Level 124 MG/DL (74-106) #H Calcium Level 8.3 MG/DL (8.5-10.1) L Phosphorus Level 2.2 MG/DL (2.5-4.9) L Magnesium Level 2.2 MG/DL (1.8-2.4) Total Bilirubin 1.6 MG/DL (0.2-1.0) H Direct Bilirubin 0.5 MG/DL (0.0-0.3) H Gamma Glutamyl Transpeptidase 120 U/L (5-85) H Aspartate Amino Transf (AST/SGOT) 26 U/L (15-37) Alanine Aminotransferase (ALT/SGPT) 19 U/L (12-78) Alkaline Phosphatase 464 U/L (46-116) H Ammonia 35 umol/L (11-32) H Total Protein 6.0 G/DL (6.4-8.2) L Albumin 1.8 G/DL (3.4-5.0) L Globulin 4.2 g/dL Albumin/Globulin Ratio 0.4 (1.0-2.7) L Arterial Blood pH 7.454 (7.350-7.450) Arterial Blood Partial Pressure CO2 22.9 mmHg (35.0-45.0) *L Arterial Blood Partial Pressure O2 66.3 mmHg (75.0-100.0) L Arterial Blood HCO3 15.7 mmol/L (22.0-26.0) *L Arterial Blood Oxygen Saturation 92.5 % (95-100) L Arterial Blood Base Excess -6.6 (-2-2) L Remberto Test Positive Microbiology Date/Time Source Procedure Growth Status 12/16/18 05:00 Nose MRSA Culture - Final NO METHICILLIN RESISTANT STAPH AUREUS... Complete 12/16/18 05:00 Rectum - Final NO CARBAPENEM-RESISTANT ENTEROBACTERI... Complete 12/16/18 05:00 Rectum VRE Culture - Final NO VANCOMYCIN RESISTANT ENTEROCOCCUS ... Complete Objective HEAD AND NECK: No JVD on the vent LUNGS: Coarse rhonchi. CARDIOVASCULAR: Irregular tachy S1 and S2 with no gallop or murmur. Tachycardic. ABDOMEN: Soft. EXTREMITIES: No pitting edema. Shantanu Mcmillan MD Dec 18, 2018 15:45
[2018-12-18] MEDS ORDERED: Digoxin 0.5mg/2ml Inj IVP SCH (16:00)
--- NOTE | 2018-12-18 16:00 | NUR ---
NURSE NOTES: Per Dr. Mcmillan, give 0.5mg IVP Digoxin at 1600, 0.25mg IVP dig at 2000 and second dose of 0.25mg IVP at 0000 dig then proceed 0.25mg digoxin PO daily starting tomorrow.
--- NOTE | 2018-12-18 16:37 | Diagnostic Imaging Report ---
EXAM: US Abdomen Complete CLINICAL HISTORY: ABD PAIN TECHNIQUE: Real-time ultrasound of the abdomen (complete) with image documentation. COMPARISON: No relevant prior studies available. FINDINGS: Liver: Liver diameter 14.4 cm. 9 mm simple-appearing cyst in the right hepatic lobe.. No intrahepatic biliary ductal dilatation. Gallbladder: Unremarkable. No gallstones. No wall thickening. No pericholecystic fluid. Common bile duct: Common bile duct diameter 5.2 mm, within normal limits. Pancreas: Unremarkable as visualized. Pancreatic body and tail are obscured by bowel gas. Kidneys: Right kidney length of 12.4 cm. Left kidney length of 14.1 cm. Normal cortical thickness. No visible stones. No hydronephrosis. 6. 2 x 5.0 x 3.2 cm simple-appearing left renal cortical cyst. Multiple simple-appearing right renal cysts, largest measuring 4.2 x 3.0 cm. Spleen: Spleen length of 9.5 cm, within normal limits. Aorta: Unremarkable. Visualized portions appear unremarkable without evidence of aneurysm. Incidental note of high velocity flow at the origin of the celiac artery measuring up to 251 cm/s peak systolic velocity Inferior vena cava: Unremarkable. Free fluid: Bilateral pleural effusions. IMPRESSION: 1. 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 2. Simple-appearing liver and renal cysts. 3. Small bilateral pleural effusions.
--- NOTE | 2018-12-18 17:32 | NUR ---
NURSE NOTES: Titrated down to 5mg/hr on cardizem gtt. HR 80-90's, BP 92/52.
--- NOTE | 2018-12-18 18:59 | NUR ---
HAND-OFF: Report given to SARAI Sanchez.
--- NOTE | 2018-12-18 19:37 | NUR ---
RESPIRATORY NOTE: Received pt. on 840 vent. Vent settings are: A/C rate of 16, VT 600, FI02 60%, PEEP +5. No respiratory distress noted, pt. Sp02 @ 100%.Ambu bag @ BS. Vent plugged on red outlet. Will continue to monitor pt,.
--- NOTE | 2018-12-18 19:40 | NUR ---
NURSE NOTES: PATIENT DROWSY, RESPONSE TO NAME AND OPEN EYES, ON ETT TO VENT AC 16/TV 600/FIO2 60%/PEEP 5, O2 SATURATION 100% NOTED, OGT INTACT AND PATENT, ONGOING GLUCERNA 1.2 AT 35ML/HR, GOAL IS 60ML/HR, NO RESIDUE NOTED, KEPT HOB OVER 30 DEGREE FOR PREVENT ASPIRATION, ABDOMEN SOFT, WEAKLY HYPOACTIVE BOWEL SOUND NOTED, NO BOWEL MOVEMENT STATUS, ENLARGED SCROTUM STATUS, EXTERNAL CATH, YELLOW URINE OUTED, PERIPHERAL LINE TO RIGHT FORE ARM 20G X2, ONGOING NS AT 75ML/HR AND CARDIZEM 2.5MG/HR VIA PERIPHERAL LINE, ON SCD'S TO BOTH LOWER LEGS, 2 POINT SOFT RESTRAINTS FOR SAFETY, MADE LOWER BED POSITION, PROVIDED CALL LIGHT WITHIN REACH, WILL CONTINUE TO MONITOR.
[2018-12-18] MEDS: Digoxin 0.5mg/2ml Inj IVP SCH ×2 (20:02→23:48)
--- NOTE | 2018-12-18 21:50 | NUR ---
NURSE NOTES: REPOSITIONED, ORAL CARE WAS DONE, PATIENT TRIED TO TOUCH ENDOTUBE WHEN RELEASED RESTRAINTS THAT REAPPLIED AND WILL CONTINUE TO MONITOR.
--- NOTE | 2018-12-18 23:05 | NUR ---
NURSE NOTES: PATIENT AWOKE, MOVING A LOT AND TRIED TO OUT OF BED THAT KEPT SIDE RAILS UP X3 FOR SAFETY AND REPOSITIONED, WILL CONTINUE TO MONITOR.
[2018-12-19] VITALS (42 sets, daily range): BP systolic 91–148; BP diastolic 48–86
[2018-12-19] MEDS: LORazepam Inj 2mg/ml 1ml IV PRN ×4 (01:05→23:23)
--- NOTE | 2018-12-19 01:05 | NUR ---
NURSE NOTES: PATIENT ANXIOUS, GIVEN ATIVAN 2MG BY IVP SLOWLY PRN ORDERED, WILL CONTINUE TO MONITOR.
--- NOTE | 2018-12-19 02:30 | NUR ---
NURSE NOTES: PATIENT AWOKE, TRIED TO REMOVE LINE, WILL CONTINUE TO MONITOR.
--- NOTE | 2018-12-19 04:20 | NUR ---
NURSE NOTES: MORNING CARE AND ORAL CARE WAS DONE. NO BOWEL MOVEMENT STATUS.
[2018-12-19] MEDS: Piperacillin/Tazobactam 3.375 GM in NS 110 ML IVPB SCH ×3 (05:41→21:43)
--- NOTE | 2018-12-19 06:20 | NUR ---
NURSE NOTES: NO ACUTE DISTRESS NOTED AT THIS TIME.
[2018-12-19 06:37] LABS: HEMATOCRIT 25.3 % (42.0-52.0); HEMOGLOBIN 8.3 G/DL (14.2-18.0); MEAN CORPUSCULAR VOLUME 89 FL (80-99); PLATELET COUNT 114 K/UL (150-450); RED BLOOD COUNT 2.83 M/UL (4.70-6.10); RED CELL DISTRIBUTION WIDTH 16.6 % (11.6-14.8); WHITE BLOOD COUNT 6.2 K/UL (4.8-10.8)
--- NOTE | 2018-12-19 07:04 | NUR ---
RESPIRATORY NOTE: Received pt on ETT 7.5 @ 22cm lips line, with current vent settings: AC 16-600ml-60% FiO2- peep of 5, saturates at 100%. Titrated FiO2 down to 50%, still sat at 100%, RN Daniel made aware. Pt is awake and alert, follow simple commands. Mello rhonchi breath sounds heard upon auscultation, sxn small amount of thick yellow secretions without incidents. No SOB or resp distress notes. Alarms are set and audible, vent is plugged into the red outlet, ambu bag is at bed side. Vent circuits and sxn tube are secured and out of the way. Will continue to monitor.
--- NOTE | 2018-12-19 07:23 | NUR ---
HAND-OFF: Report given to SARAI JOINER.
[2018-12-19 07:28] LABS: PHOSPHORUS 1.1 MG/DL (2.5-4.9)
--- NOTE | 2018-12-19 07:33 | NUR ---
NURSE NOTES: Received from SARAI ZIEGLER. Patient orally intubated with ET 7.5, 22 lipline. AC 16, VT 600, PEEP 5 50% FiO2. OGT patent and intact. GLUCERNA 1.2 @55ml/hr. goal 60ml. 10ml residual. With lt hand 20g, rt fa 20g. running NS 75ml/hr. With bilateral soft wrist restraints noted. Male external urinary pouch present and intact. Head of bed elevated. Bed alarm on. Bed locked and in low position.
[2018-12-19 07:42] LABS: ALANINE AMINOTRANSFERASE 23 U/L (12-78); ALBUMIN 1.7 G/DL (3.4-5.0); ALBUMIN/GLOBULIN RATIO 0.5 (1.0-2.7); ALKALINE PHOSPHATASE 419 U/L (46-116); ANION GAP 11 mmol/L (5-15); ASPARTATE AMINO TRANSFERASE 39 U/L (15-37); BILIRUBIN,TOTAL 1.3 MG/DL (0.2-1.0); BLOOD UREA NITROGEN 27 mg/dL (7-18); CALCIUM 7.6 MG/DL (8.5-10.1); CARBON DIOXIDE 21 MMOL/L (21-32); CHLORIDE 116 MMOL/L (98-107); POTASSIUM 3.7 MMOL/L (3.5-5.1); SODIUM 148 MMOL/L (136-145)
[2018-12-19 07:45] LABS: BILIRUBIN,DIRECT 0.5 MG/DL (0.0-0.3)
--- NOTE | 2018-12-19 08:55 | NUR ---
RESPIRATORY NOTE: Pt is awake and alert, follow commands. Placed on CPAP PS 10,60% FiO2. RSBI 135, NIF -[id number], VC 10.7ml/kg, spongt. RR 45bpm, spongt.Vt 7.1ml/kg, minuted Ventilation 14L/M. Pt is SOB, shallow irregular breathing. Pt didn't meet the weaning criteria. Placed back on AC mode, Pt is not in resp distress, RN Marycruz made aware. Will continue to monitor.
--- NOTE | 2018-12-19 09:04 | General Progress Note ---
Assessment/Plan Problem List: (1) Respiratory failure with hypoxia ICD Codes: J96.91 - Respiratory failure, unspecified with hypoxia SNOMED: 57675641379505085 Qualifiers: Qualified Codes: J96.01 - Acute respiratory failure with hypoxia (2) Atrial fibrillation with rapid ventricular response ICD Codes: I48.91 - Unspecified atrial fibrillation SNOMED: 288804217124608, 754013553 (3) Severe anemia ICD Codes: D64.9 - Anemia, unspecified SNOMED: 668987103 (4) ATN (acute tubular necrosis) ICD Codes: N17.0 - Acute kidney failure with tubular necrosis SNOMED: 60442634 (5) DM (diabetes mellitus) ICD Codes: E11.9 - Type 2 diabetes mellitus without complications SNOMED: 39856509 Status: unchanged Assessment/Plan vent transfuse prn cardio heme eval f/u cbc bmp am Subjective Constitutional: Reports: weakness Allergies: Coded Allergies: No Known Allergies (Unverified , 12/15/18) All Systems: reviewed and negative except above Subjective intub sedated in icu Objective Last 24 Hour Vital Signs Date Time Temp Pulse Resp B/P (MAP) Pulse Ox O2 Delivery O2 Flow Rate FiO2 12/19/18 07:38 86 120/61 12/19/18 07:04 87 33 50 12/19/18 07:00 85 20 107/55 (72) 100 12/19/18 06:30 85 30 123/60 (81) 100 12/19/18 06:00 86 31 127/63 (84) 100 12/19/18 05:30 84 31 117/59 (78) 99 12/19/18 05:00 73 29 112/78 (89) 100 12/19/18 04:50 91 23 60 12/19/18 04:30 88 36 122/79 (93) 100 12/19/18 04:00 98.7 90 36 120/61 (80) 100 12/19/18 04:00 Mechanical Ventilator 12/19/18 04:00 60 12/19/18 03:30 88 36 102/55 (71) 100 12/19/18 03:22 92 12/19/18 03:16 77 28 60 12/19/18 03:00 89 36 101/52 (68) 100 12/19/18 02:30 112 36 118/51 (73) 100 12/19/18 02:00 93 36 112/86 (95) 100 12/19/18 01:30 89 36 131/86 (101) 100 12/19/18 01:13 93 24 60 12/19/18 01:00 90 34 124/55 (78) 100 12/19/18 00:30 100 34 131/77 (95) 100 12/19/18 00:00 Mechanical Ventilator 12/19/18 00:00 60 12/19/18 00:00 97.8 81 31 115/57 (76) 100 12/18/18 23:48 91 12/18/18 23:32 75 23 60 12/18/18 23:30 75 12/18/18 23:30 81 31 102/54 (70) 100 12/18/18 23:00 82 33 105/62 (76) 100 12/18/18 22:30 73 30 105/54 (71) 100 12/18/18 22:00 72 29 101/51 (68) 100 12/18/18 21:32 71 28 60 12/18/18 21:30 77 28 125/53 (77) 100 12/18/18 21:01 82 106/58 12/18/18 21:00 89 30 114/54 (74) 100 12/18/18 20:30 89 31 101/57 (72) 100 12/18/18 20:02 89 12/18/18 20:00 Mechanical Ventilator 12/18/18 20:00 98.7 89 28 116/56 (76) 100 12/18/18 20:00 60 12/18/18 19:38 87 12/18/18 19:30 88 31 104/58 (73) 100 12/18/18 19:30 90 32 60 12/18/18 19:00 85 28 103/52 (69) 100 12/18/18 18:00 81 26 96/53 (67) 100 12/18/18 17:10 91 30 60 12/18/18 17:00 96 33 101/53 (69) 100 12/18/18 16:11 120 12/18/18 16:00 60 12/18/18 16:00 114 12/18/18 16:00 Mechanical Ventilator 12/18/18 16:00 113 34 110/66 (81) 98 12/18/18 15:00 118 30 104/60 (75) 100 12/18/18 14:53 116 31 60 12/18/18 14:00 103 30 113/54 (73) 100 12/18/18 13:08 92 28 60 12/18/18 13:00 94 30 106/62 (77) 100 12/18/18 12:00 80 12/18/18 12:00 Mechanical Ventilator 12/18/18 12:00 98.6 92 30 84/59 (67) 100 12/18/18 12:00 87 12/18/18 11:21 70 12/18/18 11:20 101 32 60 12/18/18 11:00 95 30 80/55 (63) 100 12/18/18 10:00 110 30 89/46 (60) 100 12/18/18 09:22 136 29 60 Intake and Output 12/18/18 12/19/18 18:59 06:59 Intake Total 990 ml 1842.5 ml Output Total 400 ml 740 ml Balance 590 ml 1102.5 ml Free Water 60 ml 200 ml IV Total 820 ml 1052.5 ml Tube Feeding 110 ml 490 ml Other 100 ml Output Urine Total 400 ml 740 ml Laboratory Tests 12/19/18 05:55: White Blood Count 6.2, Red Blood Count 2.83L, Hemoglobin 8.3L, Hematocrit 25.3L , Mean Corpuscular Volume 89, Mean Corpuscular Hemoglobin 29.1, Mean Corpuscular Hemoglobin Concent 32.6, Red Cell Distribution Width 16.6H, Platelet Count 114L, Mean Platelet Volume 6.0L, Neutrophils (%) (Auto) , Lymphocytes (%) (Auto) , Monocytes (%) (Auto) , Eosinophils (%) (Auto) , Basophils (%) (Auto) , Neutrophils % (Manual) [Pending], Lymphocytes % (Manual) [Pending], Platelet Estimate [Pending], Platelet Morphology [Pending], Sodium Level 148H, Potassium Level 3.7, Chloride Level 116H, Carbon Dioxide Level 21, Anion Gap 11, Blood Urea Nitrogen 27H, Creatinine 1.0, Estimat Glomerular Filtration Rate , Glucose Level 146H, Calcium Level 7.6L, Phosphorus Level 1.1L , Magnesium Level 2.3, Total Bilirubin 1.3H, Direct Bilirubin 0.5H, Aspartate Amino Transf (AST/SGOT) 39H, Alanine Aminotransferase (ALT/SGPT) 23, Alkaline Phosphatase 419H, Total Protein 4.9L, Albumin 1.7L, Globulin 3.2, Albumin/ Globulin Ratio 0.5L, Digoxin Level 1.1 Height (Feet): 5 Height (Inches): 7.00 Weight (Pounds): 109 General Appearance: lethargic EENT: normal ENT inspection Neck: normal alignment Cardiovascular: normal peripheral pulses, normal rate, regular rhythm Respiratory/Chest: chest wall non-tender, lungs clear, normal breath sounds Abdomen: normal bowel sounds, non tender, soft Extremities: normal inspection Edema: no edema noted Arm (L), no edema noted Arm (R), no edema noted Leg (L), no edema noted Leg (R), no edema noted Pedal (L), no edema noted Pedal (R), no edema noted Generalized Neurologic: motor weakness Skin: normal pigmentation, warm/dry Landry Green DO Dec 19, 2018 09:04
--- NOTE | 2018-12-19 09:39 | Diagnostic Imaging Report ---
EXAM: XR Chest, 1 View CLINICAL HISTORY: DYSPNEA TECHNIQUE: Frontal view of the chest. COMPARISON: Chest x-ray dated 12/18/18 FINDINGS: Lungs: No significant change in the extensive alveolar and interstitial opacities in bilateral lungs. Pleural space: Unremarkable. The costophrenic angles are sharp. No visible pneumothorax. Heart: Unremarkable. No cardiomegaly. Mediastinum: Unremarkable. Bones/joints: Unremarkable. Tubes, lines and devices: ETT approximately 3 cm above the valeria. NG tube extends below the diaphragm and its tip is not seen. Telemetry leads overlie the thorax. IMPRESSION: No significant change in the extensive alveolar and interstitial opacities in bilateral lungs.
--- NOTE | 2018-12-19 10:00 | NUR ---
NURSE NOTES: REPOSITIONED, ORAL CARE WAS DONE, PATIENT TRIED TO TOUCH ETTUBE WHEN RELEASED RESTRAINTS THAT REAPPLIED AND WILL CONTINUE TO MONITOR.
[2018-12-19] MEDS: Pantoprazole Inj IV SCH (10:03)
--- NOTE | 2018-12-19 11:28 | General Progress Note ---
Assessment/Plan Problem List: (1) DM (diabetes mellitus) ICD Codes: E11.9 - Type 2 diabetes mellitus without complications SNOMED: 90900547 (2) Elevated LFTs ICD Codes: R94.5 - Abnormal results of liver function studies SNOMED: 104315530, 866723503 (3) Dysphagia ICD Codes: R13.10 - Dysphagia, unspecified SNOMED: 81563348, 168190894 (4) Severe anemia ICD Codes: D64.9 - Anemia, unspecified SNOMED: 511197425 (5) Atrial fibrillation with rapid ventricular response ICD Codes: I48.91 - Unspecified atrial fibrillation SNOMED: 658768380645191, 228276491 (6) Respiratory failure with hypoxia ICD Codes: J96.91 - Respiratory failure, unspecified with hypoxia SNOMED: 72910679059432083 Qualifiers: Qualified Codes: J96.01 - Acute respiratory failure with hypoxia Assessment/Plan now intubated NGTF on cardizem drip not stable for GI procedures pending fernandez CT when more stable repeat labs fu GGTP Subjective ROS Limited/Unobtainable: No Allergies: Coded Allergies: No Known Allergies (Unverified , 12/15/18) Objective Last 24 Hour Vital Signs Date Time Temp Pulse Resp B/P (MAP) Pulse Ox O2 Delivery O2 Flow Rate FiO2 12/19/18 11:00 92 32 126/74 (91) 100 12/19/18 10:30 85 30 116/57 (76) 100 12/19/18 10:12 90 108/56 12/19/18 10:11 83 12/19/18 10:10 76 108/56 12/19/18 10:00 84 30 112/58 (76) 75 12/19/18 09:30 92 34 123/64 (83) 12/19/18 09:00 98.7 115 36 148/81 (103) 74 12/19/18 08:55 111 38 60 12/19/18 08:00 60 12/19/18 08:00 90 32 117/55 (75) 100 12/19/18 08:00 Mechanical Ventilator 12/19/18 08:00 92 12/19/18 07:38 86 120/61 12/19/18 07:30 80 33 117/55 (75) 100 12/19/18 07:04 87 33 50 12/19/18 07:00 85 20 107/55 (72) 100 12/19/18 06:30 85 30 123/60 (81) 100 12/19/18 06:00 86 31 127/63 (84) 100 12/19/18 05:30 84 31 117/59 (78) 99 12/19/18 05:00 73 29 112/78 (89) 100 12/19/18 04:50 91 23 60 12/19/18 04:30 88 36 122/79 (93) 100 12/19/18 04:00 98.7 90 36 120/61 (80) 100 12/19/18 04:00 Mechanical Ventilator 12/19/18 04:00 60 12/19/18 03:30 88 36 102/55 (71) 100 12/19/18 03:22 92 12/19/18 03:16 77 28 60 12/19/18 03:00 89 36 101/52 (68) 100 12/19/18 02:30 112 36 118/51 (73) 100 12/19/18 02:00 93 36 112/86 (95) 100 12/19/18 01:30 89 36 131/86 (101) 100 12/19/18 01:13 93 24 60 12/19/18 01:00 90 34 124/55 (78) 100 12/19/18 00:30 100 34 131/77 (95) 100 12/19/18 00:00 Mechanical Ventilator 12/19/18 00:00 60 12/19/18 00:00 97.8 81 31 115/57 (76) 100 12/18/18 23:48 91 12/18/18 23:32 75 23 60 12/18/18 23:30 75 12/18/18 23:30 81 31 102/54 (70) 100 12/18/18 23:00 82 33 105/62 (76) 100 12/18/18 22:30 73 30 105/54 (71) 100 12/18/18 22:00 72 29 101/51 (68) 100 12/18/18 21:32 71 28 60 12/18/18 21:30 77 28 125/53 (77) 100 12/18/18 21:01 82 106/58 12/18/18 21:00 89 30 114/54 (74) 100 12/18/18 20:30 89 31 101/57 (72) 100 12/18/18 20:02 89 12/18/18 20:00 Mechanical Ventilator 12/18/18 20:00 98.7 89 28 116/56 (76) 100 12/18/18 20:00 60 12/18/18 19:38 87 12/18/18 19:30 88 31 104/58 (73) 100 12/18/18 19:30 90 32 60 12/18/18 19:00 85 28 103/52 (69) 100 12/18/18 18:00 81 26 96/53 (67) 100 12/18/18 17:10 91 30 60 12/18/18 17:00 96 33 101/53 (69) 100 12/18/18 16:11 120 12/18/18 16:00 60 12/18/18 16:00 114 12/18/18 16:00 Mechanical Ventilator 12/18/18 16:00 113 34 110/66 (81) 98 12/18/18 15:00 118 30 104/60 (75) 100 12/18/18 14:53 116 31 60 12/18/18 14:00 103 30 113/54 (73) 100 12/18/18 13:08 92 28 60 12/18/18 13:00 94 30 106/62 (77) 100 12/18/18 12:00 80 12/18/18 12:00 Mechanical Ventilator 12/18/18 12:00 98.6 92 30 84/59 (67) 100 12/18/18 12:00 87 Intake and Output 12/18/18 12/19/18 18:59 06:59 Intake Total 990 ml 1842.5 ml Output Total 400 ml 740 ml Balance 590 ml 1102.5 ml Free Water 60 ml 200 ml IV Total 820 ml 1052.5 ml Tube Feeding 110 ml 490 ml Other 100 ml Output Urine Total 400 ml 740 ml Laboratory Tests 12/19/18 05:55: White Blood Count 6.2, Red Blood Count 2.83L, Hemoglobin 8.3L, Hematocrit 25.3L , Mean Corpuscular Volume 89, Mean Corpuscular Hemoglobin 29.1, Mean Corpuscular Hemoglobin Concent 32.6, Red Cell Distribution Width 16.6H, Platelet Count 114L, Mean Platelet Volume 6.0L, Neutrophils (%) (Auto) , Lymphocytes (%) (Auto) , Monocytes (%) (Auto) , Eosinophils (%) (Auto) , Basophils (%) (Auto) , Differential Total Cells Counted 100, Neutrophils % ( Manual) 84H, Lymphocytes % (Manual) 13L, Monocytes % (Manual) 0L, Eosinophils % (Manual) 0, Basophils % (Manual) 0, Band Neutrophils 3, Platelet Estimate DecreasedL, Platelet Morphology Normal, Anisocytosis 1+, Sodium Level 148H, Potassium Level 3.7, Chloride Level 116H, Carbon Dioxide Level 21, Anion Gap 11 , Blood Urea Nitrogen 27H, Creatinine 1.0, Estimat Glomerular Filtration Rate , Glucose Level 146H, Calcium Level 7.6L, Phosphorus Level 1.1L, Magnesium Level 2.3, Total Bilirubin 1.3H, Direct Bilirubin 0.5H, Aspartate Amino Transf (AST/ SGOT) 39H, Alanine Aminotransferase (ALT/SGPT) 23, Alkaline Phosphatase 419H, Total Protein 4.9L, Albumin 1.7L, Globulin 3.2, Albumin/Globulin Ratio 0.5L, Digoxin Level 1.1 12/19/18 09:00: Arterial Blood pH 7.462H, Arterial Blood Partial Pressure CO2 27.5L, Arterial Blood Partial Pressure O2 49.0*L, Arterial Blood HCO3 19.2L, Arterial Blood Oxygen Saturation 84.6*L, Arterial Blood Base Excess -3.7L, Remberto Test Positive Height (Feet): 5 Height (Inches): 7.00 Weight (Pounds): 109 General Appearance: lethargic EENT: normal ENT inspection Neck: supple Cardiovascular: tachycardia Respiratory/Chest: decreased breath sounds Abdomen: normal bowel sounds, non tender, soft Extremities: non-tender Mike Caruso MD Dec 19, 2018 11:28
[2018-12-19] MEDS ORDERED: Sterile Water Irrig 1000ml IRRIG ONE (11:47)
[2018-12-19] MEDS ORDERED: NS 275ml ONE (11:47)
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
--- NOTE | 2018-12-19 12:28 | Pulmonolgy Critical Care Note ---
Critical Care - Asmt/Plan Problems: (1) Acute respiratory failure (2) Multilobar lung infiltrate (3) Severe anemia (4) ATN (acute tubular necrosis) (5) Atrial fibrillation with rapid ventricular response Respiratory: monitor respiratory rate, adjust FIO2 Cardiac: continue to monitor HR/BP Renal: F/U I&O, keep IV fluid, check electrolytes, other - phos supplement Gastrointestinal: continue feedings/current rate, abdominal imaging Endocrine: monitor blood sugar Hematologic: monitor H/H, transfuse if hgb<8.5 Neurologic: PRN Ativan, keep patient comfortable Prophylaxis: Protonix, Heparin Disposition: keep in ICU Time Spent (Minutes): 40 Notes Reviewed: emergency communications officer, renal Discussed with: nurses, consultants, case mgroperations manager assistant - Objective Last 24 Hour Vital Signs Date Time Temp Pulse Resp B/P (MAP) Pulse Ox O2 Delivery O2 Flow Rate FiO2 12/19/18 11:00 92 32 126/74 (91) 100 12/19/18 10:53 88 31 60 12/19/18 10:30 85 30 116/57 (76) 100 12/19/18 10:12 90 108/56 12/19/18 10:11 83 12/19/18 10:10 76 108/56 12/19/18 10:00 84 30 112/58 (76) 75 12/19/18 09:30 92 34 123/64 (83) 12/19/18 09:00 98.7 115 36 148/81 (103) 74 12/19/18 08:55 111 38 60 12/19/18 08:00 60 12/19/18 08:00 90 32 117/55 (75) 100 12/19/18 08:00 Mechanical Ventilator 12/19/18 08:00 92 12/19/18 07:38 86 120/61 12/19/18 07:30 80 33 117/55 (75) 100 12/19/18 07:04 87 33 50 12/19/18 07:00 85 20 107/55 (72) 100 12/19/18 06:30 85 30 123/60 (81) 100 12/19/18 06:00 86 31 127/63 (84) 100 12/19/18 05:30 84 31 117/59 (78) 99 12/19/18 05:00 73 29 112/78 (89) 100 12/19/18 04:50 91 23 60 12/19/18 04:30 88 36 122/79 (93) 100 12/19/18 04:00 98.7 90 36 120/61 (80) 100 12/19/18 04:00 Mechanical Ventilator 12/19/18 04:00 60 12/19/18 03:30 88 36 102/55 (71) 100 12/19/18 03:22 92 12/19/18 03:16 77 28 60 12/19/18 03:00 89 36 101/52 (68) 100 12/19/18 02:30 112 36 118/51 (73) 100 12/19/18 02:00 93 36 112/86 (95) 100 12/19/18 01:30 89 36 131/86 (101) 100 12/19/18 01:13 93 24 60 12/19/18 01:00 90 34 124/55 (78) 100 12/19/18 00:30 100 34 131/77 (95) 100 12/19/18 00:00 Mechanical Ventilator 12/19/18 00:00 60 12/19/18 00:00 97.8 81 31 115/57 (76) 100 12/18/18 23:48 91 12/18/18 23:32 75 23 60 12/18/18 23:30 75 12/18/18 23:30 81 31 102/54 (70) 100 12/18/18 23:00 82 33 105/62 (76) 100 12/18/18 22:30 73 30 105/54 (71) 100 12/18/18 22:00 72 29 101/51 (68) 100 12/18/18 21:32 71 28 60 12/18/18 21:30 77 28 125/53 (77) 100 12/18/18 21:01 82 106/58 12/18/18 21:00 89 30 114/54 (74) 100 12/18/18 20:30 89 31 101/57 (72) 100 12/18/18 20:02 89 12/18/18 20:00 Mechanical Ventilator 12/18/18 20:00 98.7 89 28 116/56 (76) 100 12/18/18 20:00 60 12/18/18 19:38 87 12/18/18 19:30 88 31 104/58 (73) 100 12/18/18 19:30 90 32 60 12/18/18 19:00 85 28 103/52 (69) 100 12/18/18 18:00 81 26 96/53 (67) 100 12/18/18 17:10 91 30 60 12/18/18 17:00 96 33 101/53 (69) 100 12/18/18 16:11 120 12/18/18 16:00 60 12/18/18 16:00 114 12/18/18 16:00 Mechanical Ventilator 12/18/18 16:00 113 34 110/66 (81) 98 12/18/18 15:00 118 30 104/60 (75) 100 12/18/18 14:53 116 31 60 12/18/18 14:00 103 30 113/54 (73) 100 12/18/18 13:08 92 28 60 12/18/18 13:00 94 30 106/62 (77) 100 Status: awake Condition: critical, grave Lungs: clear Heart: HR/BP stable Abdomen: soft, non-tender Extremities: no C/C/E Decubiti: location Critical Care - Subjective ROS Limited/Unobtainable: No Condition: critical EKG Rhythm: Sinus Rhythm FI02: 60 Vent Support Breath Rate: 16 Vent Support Mode: AC Vent Tidal Volume: 600 Sputum Amount: Moderate PEEP: 5.0 PIP: 31 Tube Feeding Amount: 60 I&O: Intake and Output 12/18/18 12/19/18 19:00 07:00 Intake Total 1027.5 ml 1890.0 ml Output Total 400 ml 740 ml Balance 627.5 ml 1150.0 ml Free Water 60 ml 200 ml IV Total 822.5 ml 1080.0 ml Tube Feeding 145 ml 510 ml Other 100 ml Output Urine Total 400 ml 740 ml CXR: ET in good position extensive infiltrate ET-Tube: 7.5 ET Position: 22 Labs: Laboratory Tests Test 12/19/18 05:55 12/19/18 09:00 White Blood Count 6.2 K/UL (4.8-10.8) Red Blood Count 2.83 M/UL (4.70-6.10) L Hemoglobin 8.3 G/DL (14.2-18.0) L Hematocrit 25.3 % (42.0-52.0) L Mean Corpuscular Volume 89 FL (80-99) Mean Corpuscular Hemoglobin 29.1 PG (27.0-31.0) Mean Corpuscular Hemoglobin Concent 32.6 G/DL (32.0-36.0) Red Cell Distribution Width 16.6 % (11.6-14.8) H Platelet Count 114 K/UL (150-450) L Mean Platelet Volume 6.0 FL (6.5-10.1) L Neutrophils (%) (Auto) % (45.0-75.0) Lymphocytes (%) (Auto) % (20.0-45.0) Monocytes (%) (Auto) % (1.0-10.0) Eosinophils (%) (Auto) % (0.0-3.0) Basophils (%) (Auto) % (0.0-2.0) Differential Total Cells Counted 100 Neutrophils % (Manual) 84 % (45-75) H Lymphocytes % (Manual) 13 % (20-45) L Monocytes % (Manual) 0 % (1-10) L Eosinophils % (Manual) 0 % (0-3) Basophils % (Manual) 0 % (0-2) Band Neutrophils 3 % (0-8) Platelet Estimate Decreased L Platelet Morphology Normal Anisocytosis 1+ Sodium Level 148 MMOL/L (136-145) H Potassium Level 3.7 MMOL/L (3.5-5.1) Chloride Level 116 MMOL/L (98-107) H Carbon Dioxide Level 21 MMOL/L (21-32) Anion Gap 11 mmol/L (5-15) Blood Urea Nitrogen 27 mg/dL (7-18) H Creatinine 1.0 MG/DL (0.55-1.30) Estimat Glomerular Filtration Rate mL/min (>60) Glucose Level 146 MG/DL (74-106) H Calcium Level 7.6 MG/DL (8.5-10.1) L Phosphorus Level 1.1 MG/DL (2.5-4.9) L Magnesium Level 2.3 MG/DL (1.8-2.4) Total Bilirubin 1.3 MG/DL (0.2-1.0) H Direct Bilirubin 0.5 MG/DL (0.0-0.3) H Aspartate Amino Transf (AST/SGOT) 39 U/L (15-37) H Alanine Aminotransferase (ALT/SGPT) 23 U/L (12-78) Alkaline Phosphatase 419 U/L (46-116) H Total Protein 4.9 G/DL (6.4-8.2) L Albumin 1.7 G/DL (3.4-5.0) L Globulin 3.2 g/dL Albumin/Globulin Ratio 0.5 (1.0-2.7) L Digoxin Level 1.1 NG/ML (0.5-2.0) Arterial Blood pH 7.462 (7.350-7.450) Arterial Blood Partial Pressure CO2 27.5 mmHg (35.0-45.0) L Arterial Blood Partial Pressure O2 49.0 mmHg (75.0-100.0) Arterial Blood HCO3 19.2 mmol/L (22.0-26.0) L Arterial Blood Oxygen Saturation 84.6 % (95-100) *L Arterial Blood Base Excess -3.7 (-2-2) L Remberto Test Positive Bryan Emerson MD Dec 19, 2018 12:28
--- NOTE | 2018-12-19 13:00 | NUR ---
NURSE NOTES: Bed bath, oral care, change of linens done. condom cath leaking. Tegaderm applied.
[2018-12-19] MEDS ORDERED: Sodium Phosphate 30 MM in NS 275 ML IV ONE (14:00)
--- NOTE | 2018-12-19 16:00 | NUR ---
NURSE NOTES: Ativan 2mg IVP given for agitation
--- NOTE | 2018-12-19 18:00 | NUR ---
HAND-OFF: Report given to echo.NO ACUTE DISTRESS NOTED AT THIS TIME.
--- NOTE | 2018-12-19 19:45 | NUR ---
NURSE NOTES: PATIENT DROWSY, RESPONSE TO NAME AND OPEN EYES, ON ETT TO VENT AC 16/TV 600/FIO2 40%/PEEP 5, O2 SATURATION 100% NOTED, OGT INTACT AND PATENT, ONGOING GLUCERNA 1.2 AT 60ML/HR, GOAL IS 60ML/HR, RESIDUE 30ML NOTED, KEPT HOB OVER 30 DEGREE FOR PREVENT ASPIRATION, ABDOMEN SOFT, HYPOACTIVE BOWEL SOUND NOTED, NO BOWEL MOVEMENT AT THIS TIME, ENLARGED SCROTUM STATUS, SECURED CONDOM CATH, YELLOW URINE OUTED, PERIPHERAL LINE TO RIGHT FORE ARM 20G X2, ONGOING NS AT 75ML/HR AND CARDIZEM 2.5MG/HR VIA PERIPHERAL LINE, ON SCD'S TO BOTH LOWER LEGS, 2 POINT SOFT RESTRAINTS FOR SAFETY, MADE LOWER BED POSITION, PROVIDED CALL LIGHT WITHIN REACH, WILL CONTINUE TO MONITOR.
--- NOTE | 2018-12-19 21:45 | NUR ---
NURSE NOTES: HEART RATE 60'S/MIN, A-FIB NOTED THAT HOLD CARDIZEM DRIP AT THIS TIME, WILL CONTINUE TO MONITOR.
--- NOTE | 2018-12-19 23:23 | NUR ---
NURSE NOTES: PATIENT ANXIOUS, GIVEN ATIVAN 2MG BY IVP SLOWLY PRN ORDERED, WILL CONTINUE TO MONITOR.
--- NOTE | 2018-12-19 23:50 | NUR ---
NURSE NOTES: BOWEL MOVEMENT, MODERATE SOFT BROWN COLOR STOOL OUTED, CLEANED THE PATIENT, NO PAIN OR DISTRESS NOTED AT THIS TIME.
[2018-12-20] VITALS (31 sets, daily range): BP systolic 90–150; BP diastolic 46–79
--- NOTE | 2018-12-20 01:45 | NUR ---
NURSE NOTES: PATIENT CALM, SLEEPING ON AND OFF STATUS, KEPT NPO POST MN FOR ABDOMINAL /PELVIC CT, WILL CONTINUE TO MONITOR.
--- NOTE | 2018-12-20 03:50 | NUR ---
NURSE NOTES: MORNING CARE AND ORAL CARE WAS DONE, NO BOWEL MOVEMENT AT THIS TIME.
--- NOTE | 2018-12-20 05:12 | NUR ---
NURSE NOTES: KEPT NPO POST MN, NO PAIN OR DISTRESS NOTED AT THIS TIME.
[2018-12-20] MEDS: Piperacillin/Tazobactam 3.375 GM in NS 110 ML IVPB SCH ×2 (05:32→15:28)
[2018-12-20 06:02] LABS: HEMATOCRIT 24.4 % (42.0-52.0); MEAN CORPUSCULAR VOLUME 90 FL (80-99); PLATELET COUNT 98 K/UL (150-450); RED BLOOD COUNT 2.72 M/UL (4.70-6.10); RED CELL DISTRIBUTION WIDTH 16.7 % (11.6-14.8); WHITE BLOOD COUNT 5.3 K/UL (4.8-10.8)
[2018-12-20 06:26] LABS: PHOSPHORUS 1.6 MG/DL (2.5-4.9)
[2018-12-20 06:41] LABS: ALANINE AMINOTRANSFERASE 35 U/L (12-78); ALBUMIN 1.6 G/DL (3.4-5.0); ALBUMIN/GLOBULIN RATIO 0.5 (1.0-2.7); ALKALINE PHOSPHATASE 409 U/L (46-116); ANION GAP 11 mmol/L (5-15); ASPARTATE AMINO TRANSFERASE 49 U/L (15-37); BILIRUBIN,TOTAL 0.8 MG/DL (0.2-1.0); BLOOD UREA NITROGEN 21 mg/dL (7-18); CALCIUM 7.4 MG/DL (8.5-10.1); CARBON DIOXIDE 22 MMOL/L (21-32); CHLORIDE 119 MMOL/L (98-107); CREATININE 0.8 MG/DL (0.55-1.30); POTASSIUM 3.2 MMOL/L (3.5-5.1); SODIUM 152 MMOL/L (136-145)
--- NOTE | 2018-12-20 07:00 | NUR ---
Received Patient on Vent settings of AC 16, VT 600, FIO2 40%, PEEP +5. Pt intubated with ETT 7.5 at 22cm lipline, secured by anchorfast. Patient is alert/ drowsy and awake and follows commands. Breath sounds rhonchi bilaterally, sxn minimal amounts of thin, cortez white secretions. Vent plugged into red outlet, ambubag at bedside. Pt resting comfortably, in no apparent distress at this time. Will continue to monitor patient.
--- NOTE | 2018-12-20 07:02 | NUR ---
NURSE NOTES: CALLED BACK FROM DR. BEAR THAT INFORMED MD REGARDING PT'S FEEDING TOLERATED, NO NEW ORDER STATUS.
--- NOTE | 2018-12-20 07:06 | General Progress Note ---
Assessment/Plan Problem List: (1) DM (diabetes mellitus) ICD Codes: E11.9 - Type 2 diabetes mellitus without complications SNOMED: 57631451 (2) Elevated LFTs ICD Codes: R94.5 - Abnormal results of liver function studies SNOMED: 239761856, 120586158 (3) Dysphagia ICD Codes: R13.10 - Dysphagia, unspecified SNOMED: 15386057, 525016455 (4) Severe anemia ICD Codes: D64.9 - Anemia, unspecified SNOMED: 451856701 (5) Atrial fibrillation with rapid ventricular response ICD Codes: I48.91 - Unspecified atrial fibrillation SNOMED: 225808965490827, 418789350 (6) Respiratory failure with hypoxia ICD Codes: J96.91 - Respiratory failure, unspecified with hypoxia SNOMED: 82412066530044612 Qualifiers: Qualified Codes: J96.01 - Acute respiratory failure with hypoxia Assessment/Plan now intubated NGTF>>>on hold for abd CT not stable for GI procedures pending fernandez CT for today repeat labs fu repeat stool ob ppi Subjective ROS Limited/Unobtainable: No Allergies: Coded Allergies: No Known Allergies (Unverified , 12/15/18) Objective Last 24 Hour Vital Signs Date Time Temp Pulse Resp B/P (MAP) Pulse Ox O2 Delivery O2 Flow Rate FiO2 12/20/18 06:30 77 17 90/48 (62) 100 12/20/18 06:00 81 25 116/55 (75) 100 12/20/18 05:30 84 25 108/58 (75) 100 12/20/18 05:00 73 23 106/71 (83) 100 12/20/18 04:51 76 21 40 12/20/18 04:30 75 22 127/73 (91) 100 12/20/18 04:00 40 12/20/18 04:00 97.9 73 22 91/46 (61) 100 12/20/18 04:00 Mechanical Ventilator 12/20/18 03:30 78 23 111/53 (72) 100 12/20/18 03:21 81 12/20/18 03:00 77 25 94/54 (67) 100 12/20/18 02:49 78 24 40 12/20/18 02:30 78 25 103/57 (72) 100 12/20/18 02:00 79 29 109/57 (74) 100 12/20/18 01:30 77 28 105/54 (71) 100 12/20/18 01:06 66 27 40 12/20/18 01:00 74 26 99/54 (69) 100 12/20/18 00:30 74 26 105/55 (72) 100 12/20/18 00:00 98.1 71 25 97/58 (71) 99 12/20/18 00:00 Mechanical Ventilator 12/20/18 00:00 40 12/19/18 23:30 77 28 121/56 (77) 97 12/19/18 23:25 74 12/19/18 23:00 93 38 140/53 (82) 100 12/19/18 22:43 77 28 40 12/19/18 22:30 77 30 121/66 (84) 99 12/19/18 22:00 69 27 123/62 (82) 99 12/19/18 21:30 73 27 115/64 (81) 99 12/19/18 21:00 89 31 117/62 (80) 100 12/19/18 20:59 91 108/74 12/19/18 20:49 83 25 40 12/19/18 20:30 84 30 91/63 (72) 100 12/19/18 20:00 40 12/19/18 20:00 98.7 83 29 118/48 (71) 100 12/19/18 20:00 Mechanical Ventilator 12/19/18 19:30 85 27 109/49 (69) 100 12/19/18 19:30 79 27 40 12/19/18 19:21 84 12/19/18 19:00 85 29 113/61 (78) 100 12/19/18 18:30 93 34 123/84 (97) 100 12/19/18 18:00 82 29 111/54 (73) 100 12/19/18 18:00 86 29 111/54 (73) 100 12/19/18 17:01 76 34 60 12/19/18 17:00 83 27 105/50 (68) 100 12/19/18 16:00 89 12/19/18 16:00 98.6 87 30 116/53 (74) 100 12/19/18 16:00 Mechanical Ventilator 12/19/18 16:00 60 12/19/18 14:49 80 27 60 12/19/18 14:00 83 29 115/55 (75) 100 12/19/18 13:30 85 29 108/63 (78) 100 12/19/18 13:00 83 31 109/59 (76) 100 12/19/18 12:31 84 28 60 12/19/18 12:30 78 30 117/58 (77) 100 12/19/18 12:00 60 12/19/18 12:00 Mechanical Ventilator 12/19/18 12:00 98.3 84 31 115/51 (72) 96 12/19/18 12:00 84 31 115/51 (72) 96 12/19/18 12:00 87 12/19/18 11:30 87 28 103/60 (74) 100 12/19/18 11:00 92 32 126/74 (91) 100 12/19/18 10:53 88 31 60 12/19/18 10:30 85 30 116/57 (76) 100 12/19/18 10:12 90 108/56 12/19/18 10:11 83 12/19/18 10:10 76 108/56 12/19/18 10:00 84 30 112/58 (76) 75 12/19/18 09:30 92 34 123/64 (83) 12/19/18 09:00 98.7 115 36 148/81 (103) 74 12/19/18 08:55 111 38 60 12/19/18 08:00 60 12/19/18 08:00 90 32 117/55 (75) 100 12/19/18 08:00 Mechanical Ventilator 12/19/18 08:00 92 12/19/18 07:38 86 120/61 12/19/18 07:30 80 33 117/55 (75) 100 Intake and Output 12/19/18 12/20/18 19:00 07:00 Intake Total 2420.0 ml 1502.8 ml Output Total 390 ml Balance 2420.0 ml 1112.8 ml Free Water 300 ml 100 ml IV Total 1405.0 ml 1002.8 ml Tube Feeding 715 ml 300 ml Other 100 ml Output Urine Total 390 ml # Voids 1 1 # Bowel Movements 6 3 Laboratory Tests 12/19/18 09:00: Arterial Blood pH 7.462H, Arterial Blood Partial Pressure CO2 27.5L, Arterial Blood Partial Pressure O2 49.0*L, Arterial Blood HCO3 19.2L, Arterial Blood Oxygen Saturation 84.6*L, Arterial Blood Base Excess -3.7L, Remberto Test Positive 12/19/18 14:00: Stool Occult Blood [Pending] 12/20/18 05:00: White Blood Count 5.3, Red Blood Count 2.72L, Hemoglobin 8.0L, Hematocrit 24.4L , Mean Corpuscular Volume 90, Mean Corpuscular Hemoglobin 29.5, Mean Corpuscular Hemoglobin Concent 32.8, Red Cell Distribution Width 16.7H, Platelet Count 98L, Mean Platelet Volume 6.3L, Neutrophils (%) (Auto) , Lymphocytes (%) (Auto) , Monocytes (%) (Auto) , Eosinophils (%) (Auto) , Basophils (%) (Auto) , Sodium Level 152H, Potassium Level 3.2L, Chloride Level 119H, Carbon Dioxide Level 22, Anion Gap 11, Blood Urea Nitrogen 21H, Creatinine 0.8, Estimat Glomerular Filtration Rate , Glucose Level 106, Calcium Level 7.4L, Phosphorus Level 1.6L, Magnesium Level 2.1, Total Bilirubin 0.8, Aspartate Amino Transf (AST/SGOT) 49H, Alanine Aminotransferase (ALT/SGPT) 35, Alkaline Phosphatase 409H, Total Protein 4.7L, Albumin 1.6L, Globulin 3.1, Albumin/Globulin Ratio 0.5L Height (Feet): 5 Height (Inches): 7.00 Weight (Pounds): 112 General Appearance: no apparent distress EENT: normal ENT inspection Neck: supple Cardiovascular: normal rate Respiratory/Chest: decreased breath sounds Abdomen: normal bowel sounds, non tender, soft Extremities: non-tender Mike Caruso MD Dec 20, 2018 07:05
--- NOTE | 2018-12-20 07:23 | NUR ---
HAND-OFF: Report given to SARAI RAE.
--- NOTE | 2018-12-20 07:35 | NUR ---
NURSE NOTES: Received pt from SARAI Sanchez. patient is drowsy but is able to arouse by voice and touch stimuli. Orally intubated, ETT 7.5/22cm at lipline, AC 16/TV 600/Fio2 40%/PEEP +5, Spo2 100%, RR 17. Bilateral breath sounds are diminished with rhonchi. OGT clamped and NPO since midnight for US ABD/PELV w/contrast. Consent for contrast signed and in chart. Patient is in A-Fib, HR 72-92 on substation inspector. Enlarged scrotum noted. inguinal hernia noted on right lower abd. bowel sounds heard in right scrotum. Condom catheter in place, no leaks. Bilateral wrist restraints in place, skin intact and warm to touch. Bed locked, alarmed and in lowest position. Will continue plan of care.
[2018-12-20] MEDS: Pantoprazole Inj IV SCH (08:34)
--- NOTE | 2018-12-20 08:45 | NUR ---
RADIOLOGY DEPT CHEST X-RAY DONE.-P.DYE
--- NOTE | 2018-12-20 09:02 | NUR ---
WEANING STARTED. Placed Patient on SIMV 16 VT 600 PEEP +5 PS +8 FIO2 40%. Patient immediately got anxious. HR >120BPM RR >45BPM.
--- NOTE | 2018-12-20 09:03 | NUR ---
WEANING FAILED. Placed patient on previous settings.
--- NOTE | 2018-12-20 10:02 | Cardiology Report ---
APPROVED REPORT EXAM: Two-dimensional and M-mode echocardiogram with Doppler and color Doppler. INDICATION Left ventricular function M-Mode DIMENSIONS IVSd0.9 (0.7-1.1cm)Left Atrium (MM)3.7 (1.6-4.0cm) LVDd4.3 (3.5-5.6cm)Aortic Root3.7 (2.0-3.7cm) PWd1.5 (0.7-1.1cm)Aortic Cusp Exc.2.0 (1.5-2.0cm) LVDs3.8 (2.5-4.0cm) PWs1.2 cm Other Information Technically limited study due to poor acoustical windows. Normal left ventricular chamber size. Minimal left ventricular hypokinesis to extent visualized. Left ventricular ejection fraction estimated to be 50%. Mild left ventricular hypertrophy by 2D. No evidence of pericardial effusion. Mild bi-atrial enlargement Right cardiac chamber size is within normal limits. Focal aortic valve sclerosis with adequate cusp excursion. Thickened mitral valve leaflets with normal excursion. Mitral annulus and aortic root calcification. Pulmonic valve not well visualized. Normal tricuspid valve structure. IVC measured at 2.2 cm with slight physiologic collapse suggestive of mildly elevated RAP. A color flow and spectral Doppler study was performed and revealed: Mild aortic inssuficiency. Moderate mitral regurgitation. Can not determine left ventricular diastolic function based on mitral diastolic velocities due to atrial fibrillation. Moderate tricuspid regurgitation. Tricuspid systolic velocities suggests peak right ventricular systolic pressure of 56 mmHg, consistent with moderate to severe pulmonary hypertension.
--- NOTE | 2018-12-20 10:26 | Pulmonolgy Critical Care Note ---
Critical Care - Asmt/Plan Problems: (1) Acute respiratory failure (2) Multilobar lung infiltrate (3) Severe anemia (4) ATN (acute tubular necrosis) (5) Atrial fibrillation with rapid ventricular response Respiratory: monitor respiratory rate, adjust FIO2, CXR Cardiac: continue pressors, continue to monitor HR/BP Renal: F/U I&O, keep IV fluid Infectious Disease: check cultures, continue antibiotics Gastrointestinal: continue feedings/current rate Endocrine: monitor blood sugar Hematologic: monitor H/H, transfuse if hgb<8.5 Neurologic: PRN Ativan, PRN Morphine, keep patient comfortable Affect: PRN ativan Prophylaxis: Protonix Time Spent (Minutes): 40 Notes Reviewed: radiology resident, renal Discussed with: nurses, consultants, rn case manager hospicemanager patient - Objective Last 24 Hour Vital Signs Date Time Temp Pulse Resp B/P (MAP) Pulse Ox O2 Delivery O2 Flow Rate FiO2 12/20/18 09:09 100 12/20/18 09:08 97 34 40 12/20/18 09:02 124 40 40 12/20/18 08:34 75 112/50 12/20/18 08:33 74 12/20/18 08:00 40 12/20/18 08:00 Mechanical Ventilator 12/20/18 08:00 79 12/20/18 07:04 75 20 40 12/20/18 06:30 77 17 90/48 (62) 100 12/20/18 06:00 81 25 116/55 (75) 100 12/20/18 05:30 84 25 108/58 (75) 100 12/20/18 05:00 73 23 106/71 (83) 100 12/20/18 04:51 76 21 40 12/20/18 04:30 75 22 127/73 (91) 100 12/20/18 04:00 40 12/20/18 04:00 97.9 73 22 91/46 (61) 100 12/20/18 04:00 Mechanical Ventilator 12/20/18 03:30 78 23 111/53 (72) 100 12/20/18 03:21 81 12/20/18 03:00 77 25 94/54 (67) 100 12/20/18 02:49 78 24 40 12/20/18 02:30 78 25 103/57 (72) 100 12/20/18 02:00 79 29 109/57 (74) 100 12/20/18 01:30 77 28 105/54 (71) 100 12/20/18 01:06 66 27 40 12/20/18 01:00 74 26 99/54 (69) 100 12/20/18 00:30 74 26 105/55 (72) 100 12/20/18 00:00 98.1 71 25 97/58 (71) 99 12/20/18 00:00 Mechanical Ventilator 12/20/18 00:00 40 12/19/18 23:30 77 28 121/56 (77) 97 12/19/18 23:25 74 12/19/18 23:00 93 38 140/53 (82) 100 12/19/18 22:43 77 28 40 12/19/18 22:30 77 30 121/66 (84) 99 12/19/18 22:00 69 27 123/62 (82) 99 12/19/18 21:30 73 27 115/64 (81) 99 12/19/18 21:00 89 31 117/62 (80) 100 12/19/18 20:59 91 108/74 12/19/18 20:49 83 25 40 12/19/18 20:30 84 30 91/63 (72) 100 12/19/18 20:00 40 12/19/18 20:00 98.7 83 29 118/48 (71) 100 12/19/18 20:00 Mechanical Ventilator 12/19/18 19:30 85 27 109/49 (69) 100 12/19/18 19:30 79 27 40 12/19/18 19:21 84 12/19/18 19:00 85 29 113/61 (78) 100 12/19/18 18:30 93 34 123/84 (97) 100 12/19/18 18:00 82 29 111/54 (73) 100 12/19/18 18:00 86 29 111/54 (73) 100 12/19/18 17:01 76 34 60 12/19/18 17:00 83 27 105/50 (68) 100 12/19/18 16:00 89 12/19/18 16:00 98.6 87 30 116/53 (74) 100 12/19/18 16:00 Mechanical Ventilator 12/19/18 16:00 60 12/19/18 14:49 80 27 60 12/19/18 14:00 83 29 115/55 (75) 100 12/19/18 13:30 85 29 108/63 (78) 100 12/19/18 13:00 83 31 109/59 (76) 100 12/19/18 12:31 84 28 60 12/19/18 12:30 78 30 117/58 (77) 100 12/19/18 12:00 60 12/19/18 12:00 Mechanical Ventilator 12/19/18 12:00 98.3 84 31 115/51 (72) 96 12/19/18 12:00 84 31 115/51 (72) 96 12/19/18 12:00 87 12/19/18 11:30 87 28 103/60 (74) 100 12/19/18 11:00 92 32 126/74 (91) 100 12/19/18 10:53 88 31 60 12/19/18 10:30 85 30 116/57 (76) 100 Status: sedated Condition: critical HEENT: atraumatic Neck: full ROM Lungs: clear Heart: HR/BP stable, HR/BP unstable Abdomen: non-tender, active bowel sounds Extremities: no C/C/E Decubiti: location Critical Care - Subjective ROS Limited/Unobtainable: Yes Condition: critical EKG Rhythm: Sinus Rhythm FI02: 40 Vent Support Breath Rate: 16 Vent Support Mode: AC Vent Tidal Volume: 600 Sputum Amount: Moderate PEEP: 5.0 PIP: 32 Tube Feeding Amount: 0 I&O: Intake and Output 12/19/18 12/20/18 18:59 06:59 Intake Total 2395.0 ml 1687.8 ml Output Total 390 ml Balance 2395.0 ml 1297.8 ml Free Water 300 ml 100 ml IV Total 1385.0 ml 1127.8 ml Tube Feeding 710 ml 360 ml Other 100 ml Output Urine Total 390 ml # Voids 2 # Bowel Movements 6 3 CXR: no change ET-Tube: 7.5 ET Position: 22 Labs: Laboratory Tests Test 12/19/18 14:00 12/20/18 05:00 12/20/18 08:05 Stool Occult Blood Positive (NEGATIVE) White Blood Count 5.3 K/UL (4.8-10.8) Red Blood Count 2.72 M/UL (4.70-6.10) L Hemoglobin 8.0 G/DL (14.2-18.0) L Hematocrit 24.4 % (42.0-52.0) L Mean Corpuscular Volume 90 FL (80-99) Mean Corpuscular Hemoglobin 29.5 PG (27.0-31.0) Mean Corpuscular Hemoglobin Concent 32.8 G/DL (32.0-36.0) Red Cell Distribution Width 16.7 % (11.6-14.8) H Platelet Count 98 K/UL (150-450) L Mean Platelet Volume 6.3 FL (6.5-10.1) L Neutrophils (%) (Auto) % (45.0-75.0) Lymphocytes (%) (Auto) % (20.0-45.0) Monocytes (%) (Auto) % (1.0-10.0) Eosinophils (%) (Auto) % (0.0-3.0) Basophils (%) (Auto) % (0.0-2.0) Sodium Level 152 MMOL/L (136-145) H Potassium Level 3.2 MMOL/L (3.5-5.1) L Chloride Level 119 MMOL/L (98-107) H Carbon Dioxide Level 22 MMOL/L (21-32) Anion Gap 11 mmol/L (5-15) Blood Urea Nitrogen 21 mg/dL (7-18) H Creatinine 0.8 MG/DL (0.55-1.30) Estimat Glomerular Filtration Rate mL/min (>60) Glucose Level 106 MG/DL (74-106) Calcium Level 7.4 MG/DL (8.5-10.1) L Phosphorus Level 1.6 MG/DL (2.5-4.9) L Magnesium Level 2.1 MG/DL (1.8-2.4) Total Bilirubin 0.8 MG/DL (0.2-1.0) Aspartate Amino Transf (AST/SGOT) 49 U/L (15-37) H Alanine Aminotransferase (ALT/SGPT) 35 U/L (12-78) Alkaline Phosphatase 409 U/L (46-116) H Total Protein 4.7 G/DL (6.4-8.2) L Albumin 1.6 G/DL (3.4-5.0) L Globulin 3.1 g/dL Albumin/Globulin Ratio 0.5 (1.0-2.7) L Arterial Blood pH 7.479 (7.350-7.450) Arterial Blood Partial Pressure CO2 28.2 mmHg (35.0-45.0) L Arterial Blood Partial Pressure O2 103.7 mmHg (75.0-100.0) H Arterial Blood HCO3 20.5 mmol/L (22.0-26.0) L Arterial Blood Oxygen Saturation 97.3 % (95-100) Arterial Blood Base Excess -2.4 (-2-2) L Remberto Test Positive Bryan Emerson MD Dec 20, 2018 10:26
--- NOTE | 2018-12-20 10:40 | NUR ---
NURSE NOTES: Patient returned from CT abdomen/pelvis with contrast. tolerated well. updated daughter, wendi regarding plan of care.
--- NOTE | 2018-12-20 10:41 | Diagnostic Imaging Report ---
Indication: This Technique: One view of the chest Comparison: 12/19/2018 Findings: Stable satisfactory positions of endotracheal and nasogastric tubes. Bilateral diffuse interstitial and airspace disease appears unchanged. There is probably a small amount of pleural fluid on the left. Impression: Unchanged, over one day, findings as above.
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
--- NOTE | 2018-12-20 12:06 | NUR ---
RD ASSESSMENT & RECOMMENDATIONS SEE CARE ACTIVITY FOR COMPLETE ASSESSMENT DAILY ESTIMATED NEEDS: Needs based on critical care, underweight 52kg 25-30 kcals/kg 0764-9086 total kcals 1.2-2 g protein/kg 62-104 g total protein 20-25 mL/kg 8640-7965 total fluid mLs NUTRITION DIAGNOSIS: 1) Swallowing difficulty r/t respiratory status as evidenced by pt now orally intubated, on NGT feeding 2) Increased kcal and protein needs r/t underweight status as evidenced by pt is 74% of [place] Body Weight, underweight per guidelines, presents w/ generalized moderate to severe wasting. CURRENT TF: Glucerna 1.2 @60ml x 24 hrs ENTERAL NUTRITION RECOMMENDATIONS: Glucerna 1.2 @ 50ml/hr x 24 hrs to provide 1200ml, 1440kcal, 72g prot, 966ml free water - Rec to decrease goal rate to 50ml/hr x 24 hrs -> meets 100% est kcal/prot needs. - Water flush of 100ml q 8 hrs. - HOB over 30 degrees ADDITIONAL RECOMMENDATIONS: 1) Obtain calibrated bed scale wts -> Pt is underweight 2) Monitor BGs, consider SSI 3) Monitor tolerance to TF 4) Check lytes daily, replete as needed (low K and phos)
--- NOTE | 2018-12-20 12:12 | NUR ---
NURSE NOTES: Zosyn bottle leaked, notified pharmacy for new one.
[2018-12-20] MEDS ORDERED: Potassium Chloride 40 MEQ in Sodium Chloride 550 ML IVPB SCH (12:30)
--- NOTE | 2018-12-20 12:43 | Diagnostic Imaging Report ---
Clinical Indication: Abdominal pain Technique: Oral contrast was provided. IV administration nonionic contrast. Venous phase spiral acquisition obtained through the abdomen and pelvis. Multiplanar reconstructions were generated. Total dose length product 862.84 mGycm. CTDIvol(s) 13.21 mGy. Dose reduction achieved using automated exposure control Comparison: none Findings: There is evidence of anasarca, with diffuse edema of the subcutaneous, abdominal, and pelvic fat. In addition, there is a small amount of free intraperitoneal fluid, and moderate-sized bilateral pleural effusions. There is a massive indirect right inguinal hernia, which contains the cecum, ascending colon, the proximal transverse colon and the majority of the small bowel. This does not appear to be obstructive, as contrast is seen to have passed through the hernia and is far distal as the rectum. Given the generalized edema of the soft tissues, it is impossible to assess for evidence of strangulation. However, no definite small bowel wall thickening to suggest such is evident. The appendix is not definitely visualized, but no findings to suggest acute appendicitis are evident. There is colonic diverticulosis. Surrounding edema makes assessment for diverticulitis impossible. No free intraperitoneal gas is evident. The gallbladder is unremarkable. The liver demonstrates a 1 cm cyst in segment 8. No biliary ductal dilatation. The pancreas is somewhat atrophic. There is mild ectasia of the pancreatic duct. The spleen is unremarkable. The kidneys demonstrate multiple large cysts bilaterally. Calcifications in the periphery of the right kidney likely represent an old involuted calcified cyst. No renal or ureteral calculi, hydronephrosis, or hydroureter. The bladder is massively distended. The prostate is enlarged. No discrete pelvic mass or adenopathy. No retroperitoneal or mesenteric mass or adenopathy. The bones are diffusely sclerotic, with occasional lucencies. The included lung bases demonstrate extensive interstitial and airspace opacity. As mentioned above, there are moderate-sized bilateral pleural effusions. There is a nasogastric tube in place. Impression: Massive indirect right inguinal hernia, containing the proximal colon and much if not most of the small bowel. No definite evidence of obstruction or strangulation Anasarca, with diffuse extensive bilateral pulmonary edema, bilateral pleural effusions, small amount of free intraperitoneal fluid, and extensive edema of the subcutaneous and mediastinal fat Colonic diverticulosis Diffuse skeletal osteosclerosis, also previously described Distended bladder Prostatomegaly Large bilateral renal cysts. Calcification in the periventricular right kidney likely represent old involuted calcified cyst Nasogastric tube Incidental finding right lobe liver cyst The CT scanner at [facility] is accredited by the [employer] and the scans are performed using protocols designed to limit radiation exposure to as low as reasonably achievable to attain images of sufficient resolution adequate for diagnostic evaluation.
--- NOTE | 2018-12-20 13:00 | NUR ---
NURSE NOTES: No s/sx of distress noted. IVF infusing well. Notified Dr. Green and PEDRO Palmer of CT abd results. Dr. Tucker notified for consult. No pending surgeries noted.
--- NOTE | 2018-12-20 13:02 | NUR ---
[employer] SI: RESP FAILURE ETT/VENT SUPPORT T. 97.9 HR 73 RR 22 B/P 91/46 AC 16 TV 500 FIO2 405 PEEP 5 NA 152 K 3.2 BUN 21 AST 49 ALK PHOS 409 CXR=SMALL PLEURAL EFFUSION ABD/PELVIS=MASSIVE INDIRECT INGUINAL HERNIA IS: NA PHOS IV KT IV ZOSYN IV PROTONIX IV XOPENEX INLINE TX WEANING ICU STATUS
--- NOTE | 2018-12-20 13:53 | General Progress Note ---
Assessment/Plan Problem List: (1) Respiratory failure with hypoxia ICD Codes: J96.91 - Respiratory failure, unspecified with hypoxia SNOMED: 15056842965259079 Qualifiers: Qualified Codes: J96.01 - Acute respiratory failure with hypoxia (2) Atrial fibrillation with rapid ventricular response ICD Codes: I48.91 - Unspecified atrial fibrillation SNOMED: 377638411355163, 316543381 (3) Severe anemia ICD Codes: D64.9 - Anemia, unspecified SNOMED: 006559051 (4) ATN (acute tubular necrosis) ICD Codes: N17.0 - Acute kidney failure with tubular necrosis SNOMED: 65949648 (5) DM (diabetes mellitus) ICD Codes: E11.9 - Type 2 diabetes mellitus without complications SNOMED: 59598855 Status: stable, progressing Assessment/Plan vent transfuse prn cardio heme eval f/u cbc bmp am wean vent Subjective Constitutional: Reports: weakness Allergies: Coded Allergies: No Known Allergies (Unverified , 12/15/18) All Systems: reviewed and negative except above Subjective intub awake in icu Objective Last 24 Hour Vital Signs Date Time Temp Pulse Resp B/P (MAP) Pulse Ox O2 Delivery O2 Flow Rate FiO2 12/20/18 13:00 83 21 117/54 (75) 100 12/20/18 12:00 83 12/20/18 12:00 40 12/20/18 12:00 Mechanical Ventilator 12/20/18 12:00 97.2 87 20 114/70 (85) 100 12/20/18 11:16 84 22 40 12/20/18 11:00 82 21 100/52 (68) 100 12/20/18 10:00 84 21 100/48 (65) 100 12/20/18 09:09 100 12/20/18 09:08 97 34 40 12/20/18 09:02 124 40 40 12/20/18 09:00 81 21 102/48 (66) 100 12/20/18 08:34 75 112/50 12/20/18 08:33 74 12/20/18 08:00 40 12/20/18 08:00 97.6 79 21 112/50 (70) 100 12/20/18 08:00 Mechanical Ventilator 12/20/18 08:00 79 12/20/18 07:04 75 20 40 12/20/18 07:00 90 27 126/51 (76) 100 12/20/18 06:30 77 17 90/48 (62) 100 12/20/18 06:00 81 25 116/55 (75) 100 12/20/18 05:30 84 25 108/58 (75) 100 12/20/18 05:00 73 23 106/71 (83) 100 12/20/18 04:51 76 21 40 12/20/18 04:30 75 22 127/73 (91) 100 12/20/18 04:00 40 12/20/18 04:00 97.9 73 22 91/46 (61) 100 12/20/18 04:00 Mechanical Ventilator 12/20/18 03:30 78 23 111/53 (72) 100 12/20/18 03:21 81 12/20/18 03:00 77 25 94/54 (67) 100 12/20/18 02:49 78 24 40 12/20/18 02:30 78 25 103/57 (72) 100 12/20/18 02:00 79 29 109/57 (74) 100 12/20/18 01:30 77 28 105/54 (71) 100 12/20/18 01:06 66 27 40 12/20/18 01:00 74 26 99/54 (69) 100 12/20/18 00:30 74 26 105/55 (72) 100 12/20/18 00:00 98.1 71 25 97/58 (71) 99 12/20/18 00:00 Mechanical Ventilator 12/20/18 00:00 40 12/19/18 23:30 77 28 121/56 (77) 97 12/19/18 23:25 74 12/19/18 23:00 93 38 140/53 (82) 100 12/19/18 22:43 77 28 40 12/19/18 22:30 77 30 121/66 (84) 99 12/19/18 22:00 69 27 123/62 (82) 99 12/19/18 21:30 73 27 115/64 (81) 99 12/19/18 21:00 89 31 117/62 (80) 100 12/19/18 20:59 91 108/74 12/19/18 20:49 83 25 40 12/19/18 20:30 84 30 91/63 (72) 100 12/19/18 20:00 40 12/19/18 20:00 98.7 83 29 118/48 (71) 100 12/19/18 20:00 Mechanical Ventilator 12/19/18 19:30 85 27 109/49 (69) 100 12/19/18 19:30 79 27 40 12/19/18 19:21 84 12/19/18 19:00 85 29 113/61 (78) 100 12/19/18 18:30 93 34 123/84 (97) 100 12/19/18 18:00 82 29 111/54 (73) 100 12/19/18 18:00 86 29 111/54 (73) 100 12/19/18 17:01 76 34 60 12/19/18 17:00 83 27 105/50 (68) 100 12/19/18 16:00 89 12/19/18 16:00 98.6 87 30 116/53 (74) 100 12/19/18 16:00 Mechanical Ventilator 12/19/18 16:00 60 12/19/18 14:49 80 27 60 12/19/18 14:00 83 29 115/55 (75) 100 Intake and Output 12/19/18 12/20/18 18:59 06:59 Intake Total 2395.0 ml 1687.8 ml Output Total 390 ml Balance 2395.0 ml 1297.8 ml Free Water 300 ml 100 ml IV Total 1385.0 ml 1127.8 ml Tube Feeding 710 ml 360 ml Other 100 ml Output Urine Total 390 ml # Voids 2 # Bowel Movements 6 3 Laboratory Tests 12/19/18 14:00: Stool Occult Blood Positive 12/20/18 05:00: White Blood Count 5.3, Red Blood Count 2.72L, Hemoglobin 8.0L, Hematocrit 24.4L , Mean Corpuscular Volume 90, Mean Corpuscular Hemoglobin 29.5, Mean Corpuscular Hemoglobin Concent 32.8, Red Cell Distribution Width 16.7H, Platelet Count 98L, Mean Platelet Volume 6.3L, Neutrophils (%) (Auto) , Lymphocytes (%) (Auto) , Monocytes (%) (Auto) , Eosinophils (%) (Auto) , Basophils (%) (Auto) , Sodium Level 152H, Potassium Level 3.2L, Chloride Level 119H, Carbon Dioxide Level 22, Anion Gap 11, Blood Urea Nitrogen 21H, Creatinine 0.8, Estimat Glomerular Filtration Rate , Glucose Level 106, Calcium Level 7.4L, Phosphorus Level 1.6L, Magnesium Level 2.1, Total Bilirubin 0.8, Aspartate Amino Transf (AST/SGOT) 49H, Alanine Aminotransferase (ALT/SGPT) 35, Alkaline Phosphatase 409H, Total Protein 4.7L, Albumin 1.6L, Globulin 3.1, Albumin/Globulin Ratio 0.5L 12/20/18 08:05: Arterial Blood pH 7.479H, Arterial Blood Partial Pressure CO2 28.2L, Arterial Blood Partial Pressure O2 103.7H, Arterial Blood HCO3 20.5L, Arterial Blood Oxygen Saturation 97.3, Arterial Blood Base Excess -2.4L, Remberto Test Positive Height (Feet): 5 Height (Inches): 7.00 Weight (Pounds): 112 General Appearance: lethargic EENT: normal ENT inspection Neck: normal alignment Cardiovascular: normal peripheral pulses, normal rate, regular rhythm Respiratory/Chest: chest wall non-tender, lungs clear, normal breath sounds Abdomen: normal bowel sounds, non tender, soft Extremities: normal inspection Edema: no edema noted Arm (L), no edema noted Arm (R), no edema noted Leg (L), no edema noted Leg (R), no edema noted Pedal (L), no edema noted Pedal (R), no edema noted Generalized Neurologic: motor weakness Skin: normal pigmentation, warm/dry Landry Green DO Dec 20, 2018 13:52
--- NOTE | 2018-12-20 15:00 | NUR ---
NURSE NOTES: Continue NGT feeding per PEDRO Palmer. Glucerna 1.2 @25, will increase as tolerated. Turned and repositioned, kept dry and clean. oral care done.
--- NOTE | 2018-12-20 16:25 | Cardiac Electrophysiology PN ---
Assessment/Plan Assessment/Plan 1. Atrial fibrillation with rapid ventricular response. This could have been precipitated due to the patient's profound anemia with hemoglobin of 3.5. Echocardiogram showed ejection fraction of 45% with moderate to severe pulmonary hypertension. On Lopressor 100 bid and Dig 0.25 daily Off anticoagulations for gastrointestinal bleed and hemoglobin 3.5. 2. Troponin leak due to atrial fib with RVR 3. Hypertension. Continue Metoprolol . 4. Profound anemia, hemoglobin of 3.5. The patient was evaluated by Dr. Caruso and Berkley. Likely would need EGD and colonoscopy for further evaluation. 5. Respiratory failure, intubated per Dr. Emerson. 6 . Mild azotemia, BUN of 20, creatinine 1.0. DW RN Subjective Subjective In ICU, Cardizem drip changed to po. RN at bedside Objective Last 24 Hour Vital Signs Date Time Temp Pulse Resp B/P (MAP) Pulse Ox O2 Delivery O2 Flow Rate FiO2 12/20/18 16:00 Mechanical Ventilator 12/20/18 15:05 82 20 40 12/20/18 13:02 95 25 40 12/20/18 13:00 83 21 117/54 (75) 100 12/20/18 12:00 83 12/20/18 12:00 40 12/20/18 12:00 Mechanical Ventilator 12/20/18 12:00 97.2 87 20 114/70 (85) 100 12/20/18 11:16 84 22 40 12/20/18 11:00 82 21 100/52 (68) 100 12/20/18 10:00 84 21 100/48 (65) 100 12/20/18 09:09 100 12/20/18 09:08 97 34 40 12/20/18 09:02 124 40 40 12/20/18 09:00 81 21 102/48 (66) 100 12/20/18 08:34 75 112/50 12/20/18 08:33 74 12/20/18 08:00 40 12/20/18 08:00 97.6 79 21 112/50 (70) 100 12/20/18 08:00 Mechanical Ventilator 12/20/18 08:00 79 12/20/18 07:04 75 20 40 12/20/18 07:00 90 27 126/51 (76) 100 12/20/18 06:30 77 17 90/48 (62) 100 12/20/18 06:00 81 25 116/55 (75) 100 12/20/18 05:30 84 25 108/58 (75) 100 12/20/18 05:00 73 23 106/71 (83) 100 12/20/18 04:51 76 21 40 12/20/18 04:30 75 22 127/73 (91) 100 12/20/18 04:00 40 12/20/18 04:00 97.9 73 22 91/46 (61) 100 12/20/18 04:00 Mechanical Ventilator 12/20/18 03:30 78 23 111/53 (72) 100 12/20/18 03:21 81 12/20/18 03:00 77 25 94/54 (67) 100 12/20/18 02:49 78 24 40 12/20/18 02:30 78 25 103/57 (72) 100 12/20/18 02:00 79 29 109/57 (74) 100 12/20/18 01:30 77 28 105/54 (71) 100 12/20/18 01:06 66 27 40 12/20/18 01:00 74 26 99/54 (69) 100 12/20/18 00:30 74 26 105/55 (72) 100 12/20/18 00:00 98.1 71 25 97/58 (71) 99 12/20/18 00:00 Mechanical Ventilator 12/20/18 00:00 40 12/19/18 23:30 77 28 121/56 (77) 97 12/19/18 23:25 74 12/19/18 23:00 93 38 140/53 (82) 100 12/19/18 22:43 77 28 40 12/19/18 22:30 77 30 121/66 (84) 99 12/19/18 22:00 69 27 123/62 (82) 99 12/19/18 21:30 73 27 115/64 (81) 99 12/19/18 21:00 89 31 117/62 (80) 100 12/19/18 20:59 91 108/74 12/19/18 20:49 83 25 40 12/19/18 20:30 84 30 91/63 (72) 100 12/19/18 20:00 40 12/19/18 20:00 98.7 83 29 118/48 (71) 100 12/19/18 20:00 Mechanical Ventilator 12/19/18 19:30 85 27 109/49 (69) 100 12/19/18 19:30 79 27 40 12/19/18 19:21 84 12/19/18 19:00 85 29 113/61 (78) 100 12/19/18 18:30 93 34 123/84 (97) 100 12/19/18 18:00 82 29 111/54 (73) 100 12/19/18 18:00 86 29 111/54 (73) 100 12/19/18 17:01 76 34 60 12/19/18 17:00 83 27 105/50 (68) 100 Intake and Output 12/19/18 12/20/18 19:00 07:00 Intake Total 2420.0 ml 1605.3 ml Output Total 390 ml Balance 2420.0 ml 1215.3 ml Free Water 300 ml 100 ml IV Total 1405.0 ml 1105.3 ml Tube Feeding 715 ml 300 ml Other 100 ml Output Urine Total 390 ml # Voids 1 1 # Bowel Movements 6 3 Laboratory Tests Test 12/20/18 05:00 12/20/18 08:05 White Blood Count 5.3 K/UL (4.8-10.8) Red Blood Count 2.72 M/UL (4.70-6.10) L Hemoglobin 8.0 G/DL (14.2-18.0) L Hematocrit 24.4 % (42.0-52.0) L Mean Corpuscular Volume 90 FL (80-99) Mean Corpuscular Hemoglobin 29.5 PG (27.0-31.0) Mean Corpuscular Hemoglobin Concent 32.8 G/DL (32.0-36.0) Red Cell Distribution Width 16.7 % (11.6-14.8) H Platelet Count 98 K/UL (150-450) L Mean Platelet Volume 6.3 FL (6.5-10.1) L Neutrophils (%) (Auto) % (45.0-75.0) Lymphocytes (%) (Auto) % (20.0-45.0) Monocytes (%) (Auto) % (1.0-10.0) Eosinophils (%) (Auto) % (0.0-3.0) Basophils (%) (Auto) % (0.0-2.0) Sodium Level 152 MMOL/L (136-145) H Potassium Level 3.2 MMOL/L (3.5-5.1) L Chloride Level 119 MMOL/L (98-107) H Carbon Dioxide Level 22 MMOL/L (21-32) Anion Gap 11 mmol/L (5-15) Blood Urea Nitrogen 21 mg/dL (7-18) H Creatinine 0.8 MG/DL (0.55-1.30) Estimat Glomerular Filtration Rate mL/min (>60) Glucose Level 106 MG/DL (74-106) Calcium Level 7.4 MG/DL (8.5-10.1) L Phosphorus Level 1.6 MG/DL (2.5-4.9) L Magnesium Level 2.1 MG/DL (1.8-2.4) Total Bilirubin 0.8 MG/DL (0.2-1.0) Aspartate Amino Transf (AST/SGOT) 49 U/L (15-37) H Alanine Aminotransferase (ALT/SGPT) 35 U/L (12-78) Alkaline Phosphatase 409 U/L (46-116) H Total Protein 4.7 G/DL (6.4-8.2) L Albumin 1.6 G/DL (3.4-5.0) L Globulin 3.1 g/dL Albumin/Globulin Ratio 0.5 (1.0-2.7) L Arterial Blood pH 7.479 (7.350-7.450) Arterial Blood Partial Pressure CO2 28.2 mmHg (35.0-45.0) L Arterial Blood Partial Pressure O2 103.7 mmHg (75.0-100.0) H Arterial Blood HCO3 20.5 mmol/L (22.0-26.0) L Arterial Blood Oxygen Saturation 97.3 % (95-100) Arterial Blood Base Excess -2.4 (-2-2) L Remberto Test Positive Objective HEAD AND NECK: No JVD on the vent LUNGS: Coarse rhonchi. CARDIOVASCULAR: Irregular tachy S1 and S2 with no gallop or murmur. Tachycardic. ABDOMEN: Soft. EXTREMITIES: No pitting edema. Shantanu Mcmillan MD Dec 20, 2018 16:25
[2018-12-20] MEDS ORDERED: Sodium Phosphate 30 MM in NS 275 ML IV SCH (16:30)
--- NOTE | 2018-12-20 17:16 | NUR ---
NURSE NOTES: Pt is alert, calm and cooperative. No sedatives per Dr. Green so patient can wean from ventilator tomorrow. No s/sx of acute distress noted.
--- NOTE | 2018-12-20 17:49 | Consultation ---
History of Present Illness General Date patient seen: Dec 20, 2018 Chief Complaint: Chest Pain Referring physician: MASSIEL SILVA Reason for Consultation: inguinal hernia Present Illness HPI 78 year old male with unknown history presented with respiratory distress requiring intubation and now in ICU on vent support. During work up a CT was performed and demonstrated massive inguinal hernia with significant bowel noted in sac. Surgery called to evaluate. patient seen, chart reviewed patient examined. Cannot provide history. Allergies: Coded Allergies: No Known Allergies (Unverified , 12/15/18) Patient History Limited by: medical condition History Provided By: Medical Record, PMD Healthcare decision maker self Resuscitation status Full Code Advanced Directive on File No Past Medical/Surgical History Past Medical/Surgical History: (1) Inguinal hernia (2) Renal insufficiency (3) Dysphagia (4) DM (diabetes mellitus) (5) Elevated LFTs (6) Respiratory failure with hypoxia (7) Acute respiratory failure (8) Multilobar lung infiltrate (9) Anemia (10) Atrial fibrillation with rapid ventricular response (11) Severe anemia (12) ATN (acute tubular necrosis) Review of Systems ROS Narrative cannot obtain given medical condition Physical Exam General Appearance: other Lines, tubes and drains: other HEENT: mucous membranes moist Neck: normal inspection Respiratory/Chest: no accessory muscle use, on vent Cardiovascular/Chest: normal rate Abdomen: soft, decreased bowel sounds, distended, hernia Genitourinary/Rectal: other Extremities: normal inspection Skin Exam: warm/dry Neurologic: alert Last 24 Hour Vital Signs Date Time Temp Pulse Resp B/P (MAP) Pulse Ox O2 Delivery O2 Flow Rate FiO2 12/20/18 17:20 86 21 40 12/20/18 16:00 40 12/20/18 16:00 Mechanical Ventilator 12/20/18 15:05 82 20 40 12/20/18 13:02 95 25 40 12/20/18 13:00 83 21 117/54 (75) 100 12/20/18 12:00 83 12/20/18 12:00 40 12/20/18 12:00 Mechanical Ventilator 12/20/18 12:00 97.2 87 20 114/70 (85) 100 12/20/18 11:16 84 22 40 12/20/18 11:00 82 21 100/52 (68) 100 12/20/18 10:00 84 21 100/48 (65) 100 12/20/18 09:09 100 12/20/18 09:08 97 34 40 12/20/18 09:02 124 40 40 12/20/18 09:00 81 21 102/48 (66) 100 12/20/18 08:34 75 112/50 12/20/18 08:33 74 12/20/18 08:00 40 12/20/18 08:00 97.6 79 21 112/50 (70) 100 12/20/18 08:00 Mechanical Ventilator 12/20/18 08:00 79 12/20/18 07:04 75 20 40 12/20/18 07:00 90 27 126/51 (76) 100 12/20/18 06:30 77 17 90/48 (62) 100 12/20/18 06:00 81 25 116/55 (75) 100 12/20/18 05:30 84 25 108/58 (75) 100 12/20/18 05:00 73 23 106/71 (83) 100 12/20/18 04:51 76 21 40 12/20/18 04:30 75 22 127/73 (91) 100 12/20/18 04:00 40 12/20/18 04:00 97.9 73 22 91/46 (61) 100 12/20/18 04:00 Mechanical Ventilator 12/20/18 03:30 78 23 111/53 (72) 100 12/20/18 03:21 81 12/20/18 03:00 77 25 94/54 (67) 100 12/20/18 02:49 78 24 40 12/20/18 02:30 78 25 103/57 (72) 100 12/20/18 02:00 79 29 109/57 (74) 100 12/20/18 01:30 77 28 105/54 (71) 100 12/20/18 01:06 66 27 40 12/20/18 01:00 74 26 99/54 (69) 100 12/20/18 00:30 74 26 105/55 (72) 100 12/20/18 00:00 98.1 71 25 97/58 (71) 99 12/20/18 00:00 Mechanical Ventilator 12/20/18 00:00 40 12/19/18 23:30 77 28 121/56 (77) 97 12/19/18 23:25 74 12/19/18 23:00 93 38 140/53 (82) 100 12/19/18 22:43 77 28 40 12/19/18 22:30 77 30 121/66 (84) 99 12/19/18 22:00 69 27 123/62 (82) 99 12/19/18 21:30 73 27 115/64 (81) 99 12/19/18 21:00 89 31 117/62 (80) 100 12/19/18 20:59 91 108/74 12/19/18 20:49 83 25 40 12/19/18 20:30 84 30 91/63 (72) 100 12/19/18 20:00 40 12/19/18 20:00 98.7 83 29 118/48 (71) 100 12/19/18 20:00 Mechanical Ventilator 12/19/18 19:30 85 27 109/49 (69) 100 12/19/18 19:30 79 27 40 12/19/18 19:21 84 12/19/18 19:00 85 29 113/61 (78) 100 12/19/18 18:30 93 34 123/84 (97) 100 12/19/18 18:00 82 29 111/54 (73) 100 12/19/18 18:00 86 29 111/54 (73) 100 Intake and Output 12/19/18 12/20/18 19:00 07:00 Intake Total 2420.0 ml 1605.3 ml Output Total 390 ml Balance 2420.0 ml 1215.3 ml Free Water 300 ml 100 ml IV Total 1405.0 ml 1105.3 ml Tube Feeding 715 ml 300 ml Other 100 ml Output Urine Total 390 ml # Voids 1 1 # Bowel Movements 6 3 Laboratory Tests Test 12/20/18 05:00 12/20/18 08:05 White Blood Count 5.3 K/UL (4.8-10.8) Red Blood Count 2.72 M/UL (4.70-6.10) L Hemoglobin 8.0 G/DL (14.2-18.0) L Hematocrit 24.4 % (42.0-52.0) L Mean Corpuscular Volume 90 FL (80-99) Mean Corpuscular Hemoglobin 29.5 PG (27.0-31.0) Mean Corpuscular Hemoglobin Concent 32.8 G/DL (32.0-36.0) Red Cell Distribution Width 16.7 % (11.6-14.8) H Platelet Count 98 K/UL (150-450) L Mean Platelet Volume 6.3 FL (6.5-10.1) L Neutrophils (%) (Auto) % (45.0-75.0) Lymphocytes (%) (Auto) % (20.0-45.0) Monocytes (%) (Auto) % (1.0-10.0) Eosinophils (%) (Auto) % (0.0-3.0) Basophils (%) (Auto) % (0.0-2.0) Sodium Level 152 MMOL/L (136-145) H Potassium Level 3.2 MMOL/L (3.5-5.1) L Chloride Level 119 MMOL/L (98-107) H Carbon Dioxide Level 22 MMOL/L (21-32) Anion Gap 11 mmol/L (5-15) Blood Urea Nitrogen 21 mg/dL (7-18) H Creatinine 0.8 MG/DL (0.55-1.30) Estimat Glomerular Filtration Rate mL/min (>60) Glucose Level 106 MG/DL (74-106) Calcium Level 7.4 MG/DL (8.5-10.1) L Phosphorus Level 1.6 MG/DL (2.5-4.9) L Magnesium Level 2.1 MG/DL (1.8-2.4) Total Bilirubin 0.8 MG/DL (0.2-1.0) Aspartate Amino Transf (AST/SGOT) 49 U/L (15-37) H Alanine Aminotransferase (ALT/SGPT) 35 U/L (12-78) Alkaline Phosphatase 409 U/L (46-116) H Total Protein 4.7 G/DL (6.4-8.2) L Albumin 1.6 G/DL (3.4-5.0) L Globulin 3.1 g/dL Albumin/Globulin Ratio 0.5 (1.0-2.7) L Arterial Blood pH 7.479 (7.350-7.450) Arterial Blood Partial Pressure CO2 28.2 mmHg (35.0-45.0) L Arterial Blood Partial Pressure O2 103.7 mmHg (75.0-100.0) H Arterial Blood HCO3 20.5 mmol/L (22.0-26.0) L Arterial Blood Oxygen Saturation 97.3 % (95-100) Arterial Blood Base Excess -2.4 (-2-2) L Remberto Test Positive Height (Feet): 5 Height (Inches): 7.00 Weight (Pounds): 112 Medications Current Medications Medications (Trade) Dose Ordered Sig/Brock Route PRN Reason Start Time Stop Time Status Last Admin Dose Admin Acetaminophen (Tylenol) 650 mg Q4H PRN ORAL fever 12/16/18 07:15 01/15/19 07:14 Al Hydroxide/Mg Hydroxide (Mylanta II) 30 ml Q6H PRN ORAL dyspepsia 12/16/18 07:15 01/15/19 07:14 Dextrose (Dextrose 50%) 25 ml Q30M PRN IV Hypoglycemia 12/16/18 07:15 01/15/19 07:14 Dextrose (Dextrose 50%) 50 ml Q30M PRN IV Hypoglycemia 12/16/18 07:15 01/15/19 07:14 Digoxin (Lanoxin) 0.25 mg DAILY ORAL 12/19/18 09:00 01/18/19 08:59 12/20/18 08:33 Diphenhydramine HCl (Benadryl) 25 mg Q6H PRN ORAL Itching/Pruritis 12/16/18 07:15 01/15/19 07:14 Ipratropium Edwards (Atrovent) 500 mcg Q4H PRN HHN Shortness of Breath 12/16/18 17:45 12/21/18 17:44 12/16/18 17:55 Levalbuterol HCl (Xopenex) 1.25 mg Q4H PRN HHN Shortness of Breath 12/16/18 17:45 12/21/18 17:44 12/16/18 17:55 Lorazepam (Ativan 2mg/ml 1ml) 2 mg Q4H PRN IV For Anxiety 12/17/18 12:30 12/24/18 12:29 12/19/18 23:23 Metoprolol Tartrate (Lopressor) 100 mg EVERY 12 HOURS NG 12/18/18 09:00 01/17/19 08:59 12/19/18 20:59 Morphine Sulfate (Morphine Sulfate) 4 mg Q4H PRN IVP For Pain 12/17/18 12:30 3/8/19 12:29 Ondansetron HCl (Zofran) 4 mg Q6H PRN IVP Nausea & Vomiting 12/16/18 07:15 01/15/19 07:14 Pantoprazole (Protonix) 40 mg DAILY IV 12/18/18 09:00 01/17/19 08:59 12/20/18 08:34 Piperacillin Sod/ Tazobactam Sod 3.375 gm/Sodium Chloride 110 ml @ 27.5 mls/hr EVERY 8 HOURS IVPB 12/16/18 22:00 12/22/18 23:59 12/20/18 15:28 Temazepam (Restoril) 15 mg HSPRN PRN ORAL Insomnia 12/16/18 07:15 12/23/18 07:14 Assessment/Plan Problem List: (1) Inguinal hernia Assessment & Plan: 78 year old male with massive inguinal hernia with bowel contents. CT with Massive indirect right inguinal hernia, containing the proximal colon and much if not most of the small bowel. No definite evidence of obstruction or strangulation Anasarca, with diffuse extensive bilateral pulmonary edema, bilateral pleural effusions, small amount of free intraperitoneal fluid, and extensive edema of the subcutaneous and mediastinal fat Colonic diverticulosis Diffuse skeletal osteosclerosis Distended bladder Prostatomegaly Large bilateral renal cysts. Calcification in the periventricular right kidney likely represent old involuted calcified cyst Nasogastric tube Incidental finding right lobe liver cyst On exam large inguinal hernia with bowel contents in scrotum not reducible but no signs of obstruction / strangulation. in reviewing CT likely loss of domain given patients body habitus compared to hernia size. patient awake but intubated on vent support. no tenderness but does have discomfort with manipulation. given above no acute surgical intervention planned as this is likely chronic and with loss of domain. unlikely to be incarcerated but will need to keep an eye on it as bowel can obstruction will follow with exams thank you ICD Codes: K40.90 - Unilateral inguinal hernia, without obstruction or gangrene , not specified as recurrent SNOMED: 099755391 Yordy Tucker Dec 20, 2018 17:49
--- NOTE | 2018-12-20 19:10 | NUR ---
HAND-OFF: Report given to SARAI Hall.
--- NOTE | 2018-12-20 19:30 | NUR ---
NURSE NOTES:Received pt awake and alert , followed simple commands, orally intubated on ac mode AFib on the monitor at controlled rate, Bp stable. afebrile. bilateral soft wrist restraints on for safety to avoid self extubation.Condom to gravity with moderate amt of yellowish urine. Scrotum severely swollen elevated with pillow sheets. otherwise skin is intact. IVF infiusing well per RT hand. site atraumatic. Will continue to monitor.
--- NOTE | 2018-12-20 20:00 | NUR ---
NURSE NOTES:Grandson at bedside- ipdated with pts condition. verbalized understanding.
[2018-12-20] MEDS ORDERED: Sterile Water For Irrig 2000ml IRRIG ONE (20:13)
[2018-12-20] MEDS ORDERED: NS 275ml ONE (20:13)
[2018-12-20] MEDS ORDERED: Tubing IV Secondary IV ONE (20:13)
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
[2018-12-21] VITALS (24 sets, daily range): BP systolic 108–158; BP diastolic 60–99
[2018-12-21] MEDS: Piperacillin/Tazobactam 3.375 GM in NS 110 ML IVPB SCH ×4 (00:17→21:35)
--- NOTE | 2018-12-21 02:19 | NUR ---
NURSE NOTES:Pt. pulled out OGT inspite of bilateral soft wrist restraints.
[2018-12-21] MEDS: LORazepam Inj 2mg/ml 1ml IV PRN ×2 (02:32→20:43)
--- NOTE | 2018-12-21 02:32 | NUR ---
NURSE NOTES:Ativan 2mg ivp given due to pts anxiety and severe agitation.
--- NOTE | 2018-12-21 04:00 | NUR ---
NURSE NOTES:Attempted to get out of bed with restraints on- Pt been explained- soft wrist restraints maintained for safety.
[2018-12-21 05:45] LABS: BASOPHILS % (AUTO) 0.3 % (0.0-2.0); EOSINOPHILS % (AUTO) 1.4 % (0.0-3.0); HEMOGLOBIN 8.4 G/DL (14.2-18.0); LYMPHOCYTES % (AUTO) 15.9 % (20.0-45.0); MEAN CORPUSCULAR VOLUME 92 FL (80-99); NEUTROPHILS % (AUTO) 78.4 % (45.0-75.0); PLATELET COUNT 107 K/UL (150-450); RED BLOOD COUNT 2.84 M/UL (4.70-6.10); RED CELL DISTRIBUTION WIDTH 17.1 % (11.6-14.8); WHITE BLOOD COUNT 5.8 K/UL (4.8-10.8)
--- NOTE | 2018-12-21 06:00 | NUR ---
NURSE NOTES:No resp. distress noted still on afib but controlled rate. Bp stable.
[2018-12-21 06:27] LABS: ALANINE AMINOTRANSFERASE 39 U/L (12-78); ALBUMIN 1.7 G/DL (3.4-5.0); ALBUMIN/GLOBULIN RATIO 0.4 (1.0-2.7); ALKALINE PHOSPHATASE 412 U/L (46-116); ANION GAP 12 mmol/L (5-15); ASPARTATE AMINO TRANSFERASE 49 U/L (15-37); BILIRUBIN,TOTAL 0.8 MG/DL (0.2-1.0); BLOOD UREA NITROGEN 21 mg/dL (7-18); CALCIUM 8.1 MG/DL (8.5-10.1); CARBON DIOXIDE 23 MMOL/L (21-32); CHLORIDE 120 MMOL/L (98-107); CREATININE 0.9 MG/DL (0.55-1.30); POTASSIUM 3.4 MMOL/L (3.5-5.1); SODIUM 155 MMOL/L (136-145)
[2018-12-21 06:46] LABS: PHOSPHORUS 1.9 MG/DL (2.5-4.9)
--- NOTE | 2018-12-21 06:51 | General Progress Note ---
Assessment/Plan Problem List: (1) DM (diabetes mellitus) ICD Codes: E11.9 - Type 2 diabetes mellitus without complications SNOMED: 86922131 (2) Elevated LFTs ICD Codes: R94.5 - Abnormal results of liver function studies SNOMED: 879544590, 649729758 (3) Dysphagia ICD Codes: R13.10 - Dysphagia, unspecified SNOMED: 64521697, 488923951 (4) Severe anemia ICD Codes: D64.9 - Anemia, unspecified SNOMED: 962718627 (5) Atrial fibrillation with rapid ventricular response ICD Codes: I48.91 - Unspecified atrial fibrillation SNOMED: 700528899212131, 025745990 (6) Respiratory failure with hypoxia ICD Codes: J96.91 - Respiratory failure, unspecified with hypoxia SNOMED: 97425102666950541 Qualifiers: Qualified Codes: J96.01 - Acute respiratory failure with hypoxia (7) Irreducible right inguinal hernia ICD Codes: K40.30 - Unilateral inguinal hernia, with obstruction, without gangrene, not specified as recurrent SNOMED: 323676180 Assessment/Plan now intubated NGTF>>>patient pulled ngt and now reinserted stool ob X2 crdiology note reviewed, plan for EGD tomorrow and colonoscopy on if EGD neg repeat labs ppi surg in put appreciated Subjective ROS Limited/Unobtainable: No Allergies: Coded Allergies: No Known Allergies (Unverified , 12/15/18) Objective Last 24 Hour Vital Signs Date Time Temp Pulse Resp B/P (MAP) Pulse Ox O2 Delivery O2 Flow Rate FiO2 12/21/18 06:00 88 22 158/65 (96) 100 12/21/18 05:15 80 25 40 12/21/18 05:00 85 21 143/79 (100) 100 12/21/18 04:00 98.6 87 21 127/74 (91) 99 12/21/18 04:00 40 12/21/18 04:00 Mechanical Ventilator 12/21/18 04:00 87 12/21/18 03:10 79 20 40 12/21/18 03:00 83 25 108/66 (80) 100 12/21/18 02:00 99 22 147/74 (98) 100 12/21/18 01:22 75 24 40 12/21/18 01:00 79 22 125/76 (92) 100 12/21/18 00:00 98.8 91 23 147/70 (95) 100 12/21/18 00:00 89 12/21/18 00:00 Mechanical Ventilator 12/21/18 00:00 40 12/20/18 23:19 84 24 40 12/20/18 23:00 95 25 122/71 (88) 99 12/20/18 22:00 96 26 113/69 (84) 99 12/20/18 21:17 74 20 40 12/20/18 21:01 105 148/78 12/20/18 21:00 96 24 150/62 (91) 100 12/20/18 20:00 98.2 96 26 148/78 (101) 100 12/20/18 20:00 40 12/20/18 20:00 Mechanical Ventilator 12/20/18 20:00 96 12/20/18 19:25 81 22 40 12/20/18 19:00 89 24 139/79 (99) 100 12/20/18 18:00 92 24 139/75 (96) 100 12/20/18 17:20 86 21 40 12/20/18 17:00 86 20 113/60 (77) 100 12/20/18 16:00 40 12/20/18 16:00 98.9 89 21 108/72 (84) 100 12/20/18 16:00 Mechanical Ventilator 12/20/18 16:00 89 12/20/18 15:05 82 20 40 12/20/18 15:00 89 22 141/65 (90) 100 12/20/18 14:00 91 21 115/58 (77) 100 12/20/18 13:02 95 25 40 12/20/18 13:00 83 21 117/54 (75) 100 12/20/18 12:00 83 12/20/18 12:00 40 12/20/18 12:00 Mechanical Ventilator 12/20/18 12:00 97.2 87 20 114/70 (85) 100 12/20/18 11:16 84 22 40 12/20/18 11:00 82 21 100/52 (68) 100 12/20/18 10:00 84 21 100/48 (65) 100 12/20/18 09:09 100 12/20/18 09:08 97 34 40 12/20/18 09:02 124 40 40 12/20/18 09:00 81 21 102/48 (66) 100 12/20/18 08:34 75 112/50 12/20/18 08:33 74 12/20/18 08:00 40 12/20/18 08:00 97.6 79 21 112/50 (70) 100 12/20/18 08:00 Mechanical Ventilator 12/20/18 08:00 79 12/20/18 07:04 75 20 40 12/20/18 07:00 90 27 126/51 (76) 100 Intake and Output 12/20/18 12/21/18 19:00 07:00 Intake Total 425 ml 682.5 ml Balance 425 ml 682.5 ml Free Water 60 ml 200 ml IV Total 82.5 ml Tube Feeding 365 ml 400 ml # Bowel Movements 7 6 Laboratory Tests 12/20/18 08:05: Arterial Blood pH 7.479H, Arterial Blood Partial Pressure CO2 28.2L, Arterial Blood Partial Pressure O2 103.7H, Arterial Blood HCO3 20.5L, Arterial Blood Oxygen Saturation 97.3, Arterial Blood Base Excess -2.4L, Remberto Test Positive 12/21/18 05:00: White Blood Count 5.8, Red Blood Count 2.84L, Hemoglobin 8.4L, Hematocrit 26.0L , Mean Corpuscular Volume 92, Mean Corpuscular Hemoglobin 29.5, Mean Corpuscular Hemoglobin Concent 32.2, Red Cell Distribution Width 17.1H, Platelet Count 107L, Mean Platelet Volume 6.8, Neutrophils (%) (Auto) 78.4H, Lymphocytes (%) (Auto) 15.9L, Monocytes (%) (Auto) 4.0, Eosinophils (%) (Auto) 1.4, Basophils (%) (Auto) 0.3, Sodium Level 155H, Potassium Level 3.4L, Chloride Level 120H, Carbon Dioxide Level 23, Anion Gap 12, Blood Urea Nitrogen 21H, Creatinine 0.9, Estimat Glomerular Filtration Rate , Glucose Level 96, Calcium Level 8.1L, Phosphorus Level 1.9L, Magnesium Level 2.0, Total Bilirubin 0.8, Aspartate Amino Transf (AST/SGOT) 49H, Alanine Aminotransferase (ALT/SGPT) 39, Alkaline Phosphatase 412H, Total Protein 6.1L, Albumin 1.7L, Globulin 4.4, Albumin/Globulin Ratio 0.4L Height (Feet): 5 Height (Inches): 7.00 Weight (Pounds): 116 General Appearance: lethargic EENT: normal ENT inspection Neck: supple Cardiovascular: tachycardia Respiratory/Chest: decreased breath sounds Abdomen: normal bowel sounds, non tender, soft, other - large large inguinal hernia Mike Caruso MD Dec 21, 2018 06:51
--- NOTE | 2018-12-21 07:26 | NUR ---
RESPIRATORY NOTE: 7.5 22 received pt on vent, intubated with ett 7.5, placed 22cm at the lip. no redness or skin tears visible around facial or neck area. pt presents a moderate amount of thin-cortez/yellow secretions when sxn. vent is plugged into redoutlet with alarms set and audible. ambu bag is at bedside and will attempt to wean later this am.
--- NOTE | 2018-12-21 07:44 | NUR ---
HAND-OFF: Report given to Marcos MOON.
--- NOTE | 2018-12-21 08:00 | NUR ---
NURSE NOTES: Received pt from SARAI Hall. Pt is awake and alert , followed simple commands, orally intubated on ac mode AFib on the monitor at controlled rate, Bp stable. afebrile. bilateral soft wrist restraints on for safety to avoid self extubation.Condom to gravity with moderate amt of yellowish urine. Scrotum severely swollen elevated with pillow sheets. otherwise skin is intact. IVF infiusing well per RT hand. site atraumatic. Will continue to monitor.
--- NOTE | 2018-12-21 09:04 | NUR ---
RESPIRATORY NOTE: placed pt on CPAP with PS 8 at 0855. current RSBI 56, Spo2 100%, spont. RR 28, spont Vt 480, HR 91. pt is not in any apparent resp distress at this time. family at bedside. RNMarcos notified. will cont to monitor.
--- NOTE | 2018-12-21 09:11 | NUR ---
RADIOLOGY DEPT CHEST X-RAY DONE.-P.DYE
[2018-12-21] MEDS: Pantoprazole Inj IV SCH (09:18)
[2018-12-21] MEDS ORDERED: Potassium Chloride 40 MEQ in Sodium Chloride 550 ML IVPB ONE (09:45)
--- NOTE | 2018-12-21 09:52 | Pulmonolgy Critical Care Note ---
Critical Care - Asmt/Plan Problems: (1) Acute respiratory failure (2) Multilobar lung infiltrate (3) Severe anemia (4) ATN (acute tubular necrosis) (5) Atrial fibrillation with rapid ventricular response Respiratory: monitor respiratory rate, adjust FIO2, CXR Cardiac: continue pressors, continue to monitor HR/BP Renal: F/U I&O, check electrolytes Infectious Disease: check cultures, continue antibiotics Gastrointestinal: continue feedings/current rate Endocrine: monitor blood sugar, check TSH, continue sliding scale insulin Hematologic: monitor H/H, transfuse if hgb<8.5 Neurologic: PRN Ativan, keep patient comfortable Affect: PRN ativan Prophylaxis: Protonix Disposition: keep in ICU Time Spent (Minutes): 40 Notes Reviewed: air breaker operator, cardio, renal Discussed with: nurses, consultants, adult protective caseworkermedical coding manager - Objective Last 24 Hour Vital Signs Date Time Temp Pulse Resp B/P (MAP) Pulse Ox O2 Delivery O2 Flow Rate FiO2 12/21/18 09:19 87 12/21/18 09:19 87 158/65 12/21/18 08:56 87 26 40 12/21/18 08:55 100 12/21/18 07:23 81 19 40 12/21/18 06:00 88 22 158/65 (96) 100 12/21/18 05:15 80 25 40 12/21/18 05:00 85 21 143/79 (100) 100 12/21/18 04:00 98.6 87 21 127/74 (91) 99 12/21/18 04:00 40 12/21/18 04:00 Mechanical Ventilator 12/21/18 04:00 87 12/21/18 03:10 79 20 40 12/21/18 03:00 83 25 108/66 (80) 100 12/21/18 02:00 99 22 147/74 (98) 100 12/21/18 01:22 75 24 40 12/21/18 01:00 79 22 125/76 (92) 100 12/21/18 00:00 98.8 91 23 147/70 (95) 100 12/21/18 00:00 89 12/21/18 00:00 Mechanical Ventilator 12/21/18 00:00 40 12/20/18 23:19 84 24 40 12/20/18 23:00 95 25 122/71 (88) 99 12/20/18 22:00 96 26 113/69 (84) 99 12/20/18 21:17 74 20 40 12/20/18 21:01 105 148/78 12/20/18 21:00 96 24 150/62 (91) 100 12/20/18 20:00 98.2 96 26 148/78 (101) 100 12/20/18 20:00 40 12/20/18 20:00 Mechanical Ventilator 12/20/18 20:00 96 12/20/18 19:25 81 22 40 12/20/18 19:00 89 24 139/79 (99) 100 12/20/18 18:00 92 24 139/75 (96) 100 12/20/18 17:20 86 21 40 12/20/18 17:00 86 20 113/60 (77) 100 12/20/18 16:00 40 12/20/18 16:00 98.9 89 21 108/72 (84) 100 12/20/18 16:00 Mechanical Ventilator 12/20/18 16:00 89 12/20/18 15:05 82 20 40 12/20/18 15:00 89 22 141/65 (90) 100 12/20/18 14:00 91 21 115/58 (77) 100 12/20/18 13:02 95 25 40 12/20/18 13:00 83 21 117/54 (75) 100 12/20/18 12:00 83 12/20/18 12:00 40 12/20/18 12:00 Mechanical Ventilator 12/20/18 12:00 97.2 87 20 114/70 (85) 100 12/20/18 11:16 84 22 40 12/20/18 11:00 82 21 100/52 (68) 100 12/20/18 10:00 84 21 100/48 (65) 100 Status: awake Condition: critical, improving HEENT: atraumatic, normocephalic Neck: full ROM Lungs: clear Heart: HR/BP stable Abdomen: soft, active bowel sounds Extremities: no C/C/E, edema Critical Care - Subjective ICU Day: 6 Intubation Day: 6 Condition: critical EKG Rhythm: Sinus Rhythm FI02: 40 Vent Support Breath Rate: 16 Vent Support Mode: CPAP Vent Tidal Volume: 600 Sputum Amount: Moderate PEEP: 5.0 PIP: 14 Fluids: NS 50 cc/hour Tube Feeding Amount: 0 I&O: Intake and Output 12/20/18 12/21/18 18:59 06:59 Intake Total 482.5 ml 727.5 ml Balance 482.5 ml 727.5 ml Free Water 60 ml 200 ml IV Total 102.5 ml 82.5 ml Tube Feeding 320 ml 445 ml # Bowel Movements 6 8 CXR: improving infiltrate ET-Tube: 7.5 ET Position: 22 Labs: Laboratory Tests Test 12/21/18 05:00 12/21/18 08:30 White Blood Count 5.8 K/UL (4.8-10.8) Red Blood Count 2.84 M/UL (4.70-6.10) L Hemoglobin 8.4 G/DL (14.2-18.0) L Hematocrit 26.0 % (42.0-52.0) L Mean Corpuscular Volume 92 FL (80-99) Mean Corpuscular Hemoglobin 29.5 PG (27.0-31.0) Mean Corpuscular Hemoglobin Concent 32.2 G/DL (32.0-36.0) Red Cell Distribution Width 17.1 % (11.6-14.8) H Platelet Count 107 K/UL (150-450) L Mean Platelet Volume 6.8 FL (6.5-10.1) Neutrophils (%) (Auto) 78.4 % (45.0-75.0) H Lymphocytes (%) (Auto) 15.9 % (20.0-45.0) L Monocytes (%) (Auto) 4.0 % (1.0-10.0) Eosinophils (%) (Auto) 1.4 % (0.0-3.0) Basophils (%) (Auto) 0.3 % (0.0-2.0) Sodium Level 155 MMOL/L (136-145) H Potassium Level 3.4 MMOL/L (3.5-5.1) L Chloride Level 120 MMOL/L (98-107) H Carbon Dioxide Level 23 MMOL/L (21-32) Anion Gap 12 mmol/L (5-15) Blood Urea Nitrogen 21 mg/dL (7-18) H Creatinine 0.9 MG/DL (0.55-1.30) Estimat Glomerular Filtration Rate mL/min (>60) Glucose Level 96 MG/DL (74-106) Calcium Level 8.1 MG/DL (8.5-10.1) L Phosphorus Level 1.9 MG/DL (2.5-4.9) L Magnesium Level 2.0 MG/DL (1.8-2.4) Total Bilirubin 0.8 MG/DL (0.2-1.0) Aspartate Amino Transf (AST/SGOT) 49 U/L (15-37) H Alanine Aminotransferase (ALT/SGPT) 39 U/L (12-78) Alkaline Phosphatase 412 U/L (46-116) H Total Protein 6.1 G/DL (6.4-8.2) L Albumin 1.7 G/DL (3.4-5.0) L Globulin 4.4 g/dL Albumin/Globulin Ratio 0.4 (1.0-2.7) L Arterial Blood pH 7.478 (7.350-7.450) Arterial Blood Partial Pressure CO2 30.6 mmHg (35.0-45.0) L Arterial Blood Partial Pressure O2 99.8 mmHg (75.0-100.0) Arterial Blood HCO3 22.2 mmol/L (22.0-26.0) Arterial Blood Oxygen Saturation 96.8 % (95-100) Arterial Blood Base Excess -0.9 (-2-2) Remberto Test Positive Bryan Emerson MD Dec 21, 2018 09:52
--- NOTE | 2018-12-21 10:00 | NUR ---
NURSE NOTES: Weaned patient, abg done and reported to Dr. Emerson. He said keep pt intubated for another day until lung infiltrates get better.
--- NOTE | 2018-12-21 10:10 | NUR ---
RESPIRATORY NOTE: Pt placed back on AC mode at [address] Emerson
--- NOTE | 2018-12-21 10:37 | Diagnostic Imaging Report ---
Indication: Dyspnea Technique: One view of the chest Comparison: 12/20/2018 Findings: Bilateral interstitial and airspace infiltrates versus edema again demonstrated. Stable satisfactory positions of endotracheal and nasogastric tubes. Normal heart size. No significant interim change Impression: Unchanged, over one day, findings as above.
--- NOTE | 2018-12-21 10:44 | Cardiac Electrophysiology PN ---
Assessment/Plan Assessment/Plan 1. Atrial fibrillation with rapid ventricular response. This could have been precipitated due to the patient's profound anemia with hemoglobin of 3.5. Echocardiogram showed ejection fraction of 45% with moderate to severe pulmonary hypertension. On Lopressor 100 bid and Dig 0.25 daily Off anticoagulations for gastrointestinal bleed and hemoglobin 3.5. 2. Troponin leak due to atrial fib with RVR 3. Hypertension. Continue Metoprolol . 4. Profound anemia, hemoglobin of 3.5. The patient was evaluated by Dr. Caruso and Berkley. EGD in am by Dr Caruso 5. Respiratory failure, intubated per Dr. Emerson. Extubation postponed to tomorrow 6 . Mild azotemia, BUN of 20, creatinine 1.0. DW RN Subjective Subjective In ICU Lopressor and Digoxin. RN at bedside Objective Last 24 Hour Vital Signs Date Time Temp Pulse Resp B/P (MAP) Pulse Ox O2 Delivery O2 Flow Rate FiO2 12/21/18 10:00 89 22 148/84 (105) 100 12/21/18 09:19 87 12/21/18 09:19 87 158/65 12/21/18 09:00 88 22 129/79 (96) 100 12/21/18 08:56 87 26 40 12/21/18 08:55 100 12/21/18 08:00 40 12/21/18 08:00 88 12/21/18 08:00 98.5 87 21 133/74 (93) 99 12/21/18 08:00 Mechanical Ventilator 12/21/18 07:23 81 19 40 12/21/18 07:00 80 22 145/60 (88) 100 12/21/18 06:00 88 22 158/65 (96) 100 12/21/18 05:15 80 25 40 12/21/18 05:00 85 21 143/79 (100) 100 12/21/18 04:00 98.6 87 21 127/74 (91) 99 12/21/18 04:00 40 12/21/18 04:00 Mechanical Ventilator 12/21/18 04:00 87 12/21/18 03:10 79 20 40 12/21/18 03:00 83 25 108/66 (80) 100 12/21/18 02:00 99 22 147/74 (98) 100 3/5/19 01:22 75 24 40 12/21/18 01:00 79 22 125/76 (92) 100 12/21/18 00:00 98.8 91 23 147/70 (95) 100 12/21/18 00:00 89 12/21/18 00:00 Mechanical Ventilator 12/21/18 00:00 40 12/20/18 23:19 84 24 40 12/20/18 23:00 95 25 122/71 (88) 99 12/20/18 22:00 96 26 113/69 (84) 99 12/20/18 21:17 74 20 40 12/20/18 21:01 105 148/78 12/20/18 21:00 96 24 150/62 (91) 100 12/20/18 20:00 98.2 96 26 148/78 (101) 100 12/20/18 20:00 40 12/20/18 20:00 Mechanical Ventilator 12/20/18 20:00 96 12/20/18 19:25 81 22 40 12/20/18 19:00 89 24 139/79 (99) 100 12/20/18 18:00 92 24 139/75 (96) 100 12/20/18 17:20 86 21 40 12/20/18 17:00 86 20 113/60 (77) 100 12/20/18 16:00 40 12/20/18 16:00 98.9 89 21 108/72 (84) 100 12/20/18 16:00 Mechanical Ventilator 12/20/18 16:00 89 12/20/18 15:05 82 20 40 12/20/18 15:00 89 22 141/65 (90) 100 12/20/18 14:00 91 21 115/58 (77) 100 12/20/18 13:02 95 25 40 12/20/18 13:00 83 21 117/54 (75) 100 12/20/18 12:00 83 12/20/18 12:00 40 12/20/18 12:00 Mechanical Ventilator 12/20/18 12:00 97.2 87 20 114/70 (85) 100 12/20/18 11:16 84 22 40 12/20/18 11:00 82 21 100/52 (68) 100 Intake and Output 12/20/18 12/21/18 18:59 06:59 Intake Total 482.5 ml 727.5 ml Balance 482.5 ml 727.5 ml Free Water 60 ml 200 ml IV Total 102.5 ml 82.5 ml Tube Feeding 320 ml 445 ml # Bowel Movements 6 8 Laboratory Tests Test 12/21/18 05:00 12/21/18 08:30 12/21/18 09:45 White Blood Count 5.8 K/UL (4.8-10.8) Red Blood Count 2.84 M/UL (4.70-6.10) L Hemoglobin 8.4 G/DL (14.2-18.0) L Hematocrit 26.0 % (42.0-52.0) L Mean Corpuscular Volume 92 FL (80-99) Mean Corpuscular Hemoglobin 29.5 PG (27.0-31.0) Mean Corpuscular Hemoglobin Concent 32.2 G/DL (32.0-36.0) Red Cell Distribution Width 17.1 % (11.6-14.8) H Platelet Count 107 K/UL (150-450) L Mean Platelet Volume 6.8 FL (6.5-10.1) Neutrophils (%) (Auto) 78.4 % (45.0-75.0) H Lymphocytes (%) (Auto) 15.9 % (20.0-45.0) L Monocytes (%) (Auto) 4.0 % (1.0-10.0) Eosinophils (%) (Auto) 1.4 % (0.0-3.0) Basophils (%) (Auto) 0.3 % (0.0-2.0) Sodium Level 155 MMOL/L (136-145) H Potassium Level 3.4 MMOL/L (3.5-5.1) L Chloride Level 120 MMOL/L (98-107) H Carbon Dioxide Level 23 MMOL/L (21-32) Anion Gap 12 mmol/L (5-15) Blood Urea Nitrogen 21 mg/dL (7-18) H Creatinine 0.9 MG/DL (0.55-1.30) Estimat Glomerular Filtration Rate mL/min (>60) Glucose Level 96 MG/DL (74-106) Calcium Level 8.1 MG/DL (8.5-10.1) L Phosphorus Level 1.9 MG/DL (2.5-4.9) L Magnesium Level 2.0 MG/DL (1.8-2.4) Total Bilirubin 0.8 MG/DL (0.2-1.0) Aspartate Amino Transf (AST/SGOT) 49 U/L (15-37) H Alanine Aminotransferase (ALT/SGPT) 39 U/L (12-78) Alkaline Phosphatase 412 U/L (46-116) H Total Protein 6.1 G/DL (6.4-8.2) L Albumin 1.7 G/DL (3.4-5.0) L Globulin 4.4 g/dL Albumin/Globulin Ratio 0.4 (1.0-2.7) L Arterial Blood pH 7.478 (7.350-7.450) 7.441 (7.350-7.450) Arterial Blood Partial Pressure CO2 30.6 mmHg (35.0-45.0) L 29.0 mmHg (35.0-45.0) L Arterial Blood Partial Pressure O2 99.8 mmHg (75.0-100.0) 52.5 mmHg (75.0-100.0) L Arterial Blood HCO3 22.2 mmol/L (22.0-26.0) 19.3 mmol/L (22.0-26.0) L Arterial Blood Oxygen Saturation 96.8 % (95-100) 86.4 % (95-100) *L Arterial Blood Base Excess -0.9 (-2-2) -4.0 (-2-2) L Remberto Test Positive Positive Objective HEAD AND NECK: No JVD on the vent LUNGS: Coarse rhonchi. CARDIOVASCULAR: Irregular tachy S1 and S2 with no gallop or murmur. Tachycardic. ABDOMEN: Soft. EXTREMITIES: No pitting edema. Shantanu Mcmillan MD Dec 21, 2018 10:44
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
[2018-12-21] MEDS ORDERED: Potassium Phosphate 30 MM in NS 275 ML IV SCH (12:00)
--- NOTE | 2018-12-21 12:00 | NUR ---
NURSE NOTES: turned and repositioned pt, bowel movement x1, will continue to monitor.
--- NOTE | 2018-12-21 13:18 | Surgery Progress Note ---
Surgery Progress Note Subjective Additional Comments no acute events. comfortable. labs noted. exam stable. Objective Last 24 Hour Vital Signs Date Time Temp Pulse Resp B/P (MAP) Pulse Ox O2 Delivery O2 Flow Rate FiO2 12/21/18 12:57 77 21 40 12/21/18 11:12 81 26 40 12/21/18 10:00 89 22 148/84 (105) 100 12/21/18 09:19 87 12/21/18 09:19 87 158/65 12/21/18 09:00 88 22 129/79 (96) 100 12/21/18 08:56 87 26 40 12/21/18 08:55 100 12/21/18 08:00 40 12/21/18 08:00 88 12/21/18 08:00 98.5 87 21 133/74 (93) 99 12/21/18 08:00 Mechanical Ventilator 12/21/18 07:23 81 19 40 12/21/18 07:00 80 22 145/60 (88) 100 12/21/18 06:00 88 22 158/65 (96) 100 12/21/18 05:15 80 25 40 12/21/18 05:00 85 21 143/79 (100) 100 12/21/18 04:00 98.6 87 21 127/74 (91) 99 12/21/18 04:00 40 12/21/18 04:00 Mechanical Ventilator 12/21/18 04:00 87 12/21/18 03:10 79 20 40 12/21/18 03:00 83 25 108/66 (80) 100 12/21/18 02:00 99 22 147/74 (98) 100 12/21/18 01:22 75 24 40 12/21/18 01:00 79 22 125/76 (92) 100 12/21/18 00:00 98.8 91 23 147/70 (95) 100 12/21/18 00:00 89 12/21/18 00:00 Mechanical Ventilator 12/21/18 00:00 40 12/20/18 23:19 84 24 40 12/20/18 23:00 95 25 122/71 (88) 99 12/20/18 22:00 96 26 113/69 (84) 99 12/20/18 21:17 74 20 40 12/20/18 21:01 105 148/78 12/20/18 21:00 96 24 150/62 (91) 100 12/20/18 20:00 98.2 96 26 148/78 (101) 100 12/20/18 20:00 40 12/20/18 20:00 Mechanical Ventilator 12/20/18 20:00 96 12/20/18 19:25 81 22 40 12/20/18 19:00 89 24 139/79 (99) 100 12/20/18 18:00 92 24 139/75 (96) 100 12/20/18 17:20 86 21 40 12/20/18 17:00 86 20 113/60 (77) 100 12/20/18 16:00 40 12/20/18 16:00 98.9 89 21 108/72 (84) 100 12/20/18 16:00 Mechanical Ventilator 12/20/18 16:00 89 12/20/18 15:05 82 20 40 12/20/18 15:00 89 22 141/65 (90) 100 12/20/18 14:00 91 21 115/58 (77) 100 I&O Intake and Output 12/20/18 12/21/18 19:00 07:00 Intake Total 425 ml 682.5 ml Output Total 200 ml Balance 425 ml 482.5 ml Free Water 60 ml 200 ml IV Total 82.5 ml Tube Feeding 365 ml 400 ml Output Urine Total 200 ml # Bowel Movements 7 7 Drains: other Cardiovascular: RSR Respiratory: clear Abdomen: soft, non-tender, other, non-distended Extremities: other Laboratory Tests Test 12/21/18 05:00 12/21/18 08:30 12/21/18 09:45 White Blood Count 5.8 K/UL (4.8-10.8) Red Blood Count 2.84 M/UL (4.70-6.10) L Hemoglobin 8.4 G/DL (14.2-18.0) L Hematocrit 26.0 % (42.0-52.0) L Mean Corpuscular Volume 92 FL (80-99) Mean Corpuscular Hemoglobin 29.5 PG (27.0-31.0) Mean Corpuscular Hemoglobin Concent 32.2 G/DL (32.0-36.0) Red Cell Distribution Width 17.1 % (11.6-14.8) H Platelet Count 107 K/UL (150-450) L Mean Platelet Volume 6.8 FL (6.5-10.1) Neutrophils (%) (Auto) 78.4 % (45.0-75.0) H Lymphocytes (%) (Auto) 15.9 % (20.0-45.0) L Monocytes (%) (Auto) 4.0 % (1.0-10.0) Eosinophils (%) (Auto) 1.4 % (0.0-3.0) Basophils (%) (Auto) 0.3 % (0.0-2.0) Sodium Level 155 MMOL/L (136-145) H Potassium Level 3.4 MMOL/L (3.5-5.1) L Chloride Level 120 MMOL/L (98-107) H Carbon Dioxide Level 23 MMOL/L (21-32) Anion Gap 12 mmol/L (5-15) Blood Urea Nitrogen 21 mg/dL (7-18) H Creatinine 0.9 MG/DL (0.55-1.30) Estimat Glomerular Filtration Rate mL/min (>60) Glucose Level 96 MG/DL (74-106) Calcium Level 8.1 MG/DL (8.5-10.1) L Phosphorus Level 1.9 MG/DL (2.5-4.9) L Magnesium Level 2.0 MG/DL (1.8-2.4) Total Bilirubin 0.8 MG/DL (0.2-1.0) Aspartate Amino Transf (AST/SGOT) 49 U/L (15-37) H Alanine Aminotransferase (ALT/SGPT) 39 U/L (12-78) Alkaline Phosphatase 412 U/L (46-116) H Total Protein 6.1 G/DL (6.4-8.2) L Albumin 1.7 G/DL (3.4-5.0) L Globulin 4.4 g/dL Albumin/Globulin Ratio 0.4 (1.0-2.7) L Arterial Blood pH 7.478 (7.350-7.450) 7.441 (7.350-7.450) Arterial Blood Partial Pressure CO2 30.6 mmHg (35.0-45.0) L 29.0 mmHg (35.0-45.0) L Arterial Blood Partial Pressure O2 99.8 mmHg (75.0-100.0) 52.5 mmHg (75.0-100.0) L Arterial Blood HCO3 22.2 mmol/L (22.0-26.0) 19.3 mmol/L (22.0-26.0) L Arterial Blood Oxygen Saturation 96.8 % (95-100) 86.4 % (95-100) *L Arterial Blood Base Excess -0.9 (-2-2) -4.0 (-2-2) L Remberto Test Positive Positive Plan Problems: (1) Inguinal hernia Assessment & Plan: 78 year old male with massive inguinal hernia with bowel contents. CT with Massive indirect right inguinal hernia, containing the proximal colon and much if not most of the small bowel. No definite evidence of obstruction or strangulation Anasarca, with diffuse extensive bilateral pulmonary edema, bilateral pleural effusions, small amount of free intraperitoneal fluid, and extensive edema of the subcutaneous and mediastinal fat Colonic diverticulosis Diffuse skeletal osteosclerosis Distended bladder Prostatomegaly Large bilateral renal cysts. Calcification in the periventricular right kidney likely represent old involuted calcified cyst Nasogastric tube Incidental finding right lobe liver cyst On exam large inguinal hernia with bowel contents in scrotum not reducible but no signs of obstruction / strangulation. in reviewing CT likely loss of domain given patients body habitus compared to hernia size. patient awake but intubated on vent support. no tenderness but does have discomfort with manipulation. given above no acute surgical intervention planned as this is likely chronic and with loss of domain. unlikely to be incarcerated but will need to keep an eye on it as bowel can obstruction will follow with exams thank you Yordy Tucker Dec 21, 2018 13:18
--- NOTE | 2018-12-21 14:00 | NUR ---
NURSE NOTES: Pt resting in bed, family at bedside.
--- NOTE | 2018-12-21 14:14 | General Progress Note ---
Assessment/Plan Problem List: (1) Respiratory failure with hypoxia ICD Codes: J96.91 - Respiratory failure, unspecified with hypoxia SNOMED: 88139577115092737 Qualifiers: Qualified Codes: J96.01 - Acute respiratory failure with hypoxia (2) Atrial fibrillation with rapid ventricular response ICD Codes: I48.91 - Unspecified atrial fibrillation SNOMED: 255292045404795, 945599592 (3) Severe anemia ICD Codes: D64.9 - Anemia, unspecified SNOMED: 785485557 (4) ATN (acute tubular necrosis) ICD Codes: N17.0 - Acute kidney failure with tubular necrosis SNOMED: 41151066 (5) DM (diabetes mellitus) ICD Codes: E11.9 - Type 2 diabetes mellitus without complications SNOMED: 16855140 Status: unchanged Assessment/Plan vent transfuse prn cardio heme eval f/u cbc bmp am wean vent Subjective Constitutional: Reports: weakness Allergies: Coded Allergies: No Known Allergies (Unverified , 12/15/18) All Systems: reviewed and negative except above Subjective intub awake in icu Objective Last 24 Hour Vital Signs Date Time Temp Pulse Resp B/P (MAP) Pulse Ox O2 Delivery O2 Flow Rate FiO2 12/21/18 12:57 77 21 40 12/21/18 11:12 81 26 40 12/21/18 10:00 89 22 148/84 (105) 100 12/21/18 09:19 87 12/21/18 09:19 87 158/65 12/21/18 09:00 88 22 129/79 (96) 100 12/21/18 08:56 87 26 40 12/21/18 08:55 100 12/21/18 08:00 40 12/21/18 08:00 88 12/21/18 08:00 98.5 87 21 133/74 (93) 99 12/21/18 08:00 Mechanical Ventilator 12/21/18 07:23 81 19 40 12/21/18 07:00 80 22 145/60 (88) 100 12/21/18 06:00 88 22 158/65 (96) 100 12/21/18 05:15 80 25 40 12/21/18 05:00 85 21 143/79 (100) 100 12/21/18 04:00 98.6 87 21 127/74 (91) 99 3/5/19 04:00 40 12/21/18 04:00 Mechanical Ventilator 12/21/18 04:00 87 12/21/18 03:10 79 20 40 12/21/18 03:00 83 25 108/66 (80) 100 12/21/18 02:00 99 22 147/74 (98) 100 12/21/18 01:22 75 24 40 12/21/18 01:00 79 22 125/76 (92) 100 12/21/18 00:00 98.8 91 23 147/70 (95) 100 12/21/18 00:00 89 12/21/18 00:00 Mechanical Ventilator 12/21/18 00:00 40 12/20/18 23:19 84 24 40 12/20/18 23:00 95 25 122/71 (88) 99 12/20/18 22:00 96 26 113/69 (84) 99 12/20/18 21:17 74 20 40 12/20/18 21:01 105 148/78 12/20/18 21:00 96 24 150/62 (91) 100 12/20/18 20:00 98.2 96 26 148/78 (101) 100 12/20/18 20:00 40 12/20/18 20:00 Mechanical Ventilator 12/20/18 20:00 96 12/20/18 19:25 81 22 40 12/20/18 19:00 89 24 139/79 (99) 100 12/20/18 18:00 92 24 139/75 (96) 100 12/20/18 17:20 86 21 40 12/20/18 17:00 86 20 113/60 (77) 100 12/20/18 16:00 40 12/20/18 16:00 98.9 89 21 108/72 (84) 100 12/20/18 16:00 Mechanical Ventilator 12/20/18 16:00 89 12/20/18 15:05 82 20 40 12/20/18 15:00 89 22 141/65 (90) 100 Intake and Output 12/20/18 12/21/18 18:59 06:59 Intake Total 482.5 ml 727.5 ml Balance 482.5 ml 727.5 ml Free Water 60 ml 200 ml IV Total 102.5 ml 82.5 ml Tube Feeding 320 ml 445 ml # Bowel Movements 6 8 Laboratory Tests 12/21/18 05:00: White Blood Count 5.8, Red Blood Count 2.84L, Hemoglobin 8.4L, Hematocrit 26.0L , Mean Corpuscular Volume 92, Mean Corpuscular Hemoglobin 29.5, Mean Corpuscular Hemoglobin Concent 32.2, Red Cell Distribution Width 17.1H, Platelet Count 107L, Mean Platelet Volume 6.8, Neutrophils (%) (Auto) 78.4H, Lymphocytes (%) (Auto) 15.9L, Monocytes (%) (Auto) 4.0, Eosinophils (%) (Auto) 1.4, Basophils (%) (Auto) 0.3, Sodium Level 155H, Potassium Level 3.4L, Chloride Level 120H, Carbon Dioxide Level 23, Anion Gap 12, Blood Urea Nitrogen 21H, Creatinine 0.9, Estimat Glomerular Filtration Rate , Glucose Level 96, Calcium Level 8.1L, Phosphorus Level 1.9L, Magnesium Level 2.0, Total Bilirubin 0.8, Aspartate Amino Transf (AST/SGOT) 49H, Alanine Aminotransferase (ALT/SGPT) 39, Alkaline Phosphatase 412H, Total Protein 6.1L, Albumin 1.7L, Globulin 4.4, Albumin/Globulin Ratio 0.4L 12/21/18 08:30: Arterial Blood pH 7.478H, Arterial Blood Partial Pressure CO2 30.6L, Arterial Blood Partial Pressure O2 99.8, Arterial Blood HCO3 22.2, Arterial Blood Oxygen Saturation 96.8, Arterial Blood Base Excess -0.9, Remberto Test Positive 12/21/18 09:45: Arterial Blood pH 7.441, Arterial Blood Partial Pressure CO2 29.0L, Arterial Blood Partial Pressure O2 52.5L, Arterial Blood HCO3 19.3L, Arterial Blood Oxygen Saturation 86.4*L, Arterial Blood Base Excess -4.0L, Remberto Test Positive Height (Feet): 5 Height (Inches): 7.00 Weight (Pounds): 116 General Appearance: lethargic EENT: normal ENT inspection Neck: normal alignment Cardiovascular: normal peripheral pulses, normal rate, regular rhythm Respiratory/Chest: chest wall non-tender, lungs clear, normal breath sounds Abdomen: normal bowel sounds, non tender, soft Extremities: normal inspection Edema: no edema noted Arm (L), no edema noted Arm (R), no edema noted Leg (L), no edema noted Leg (R), no edema noted Pedal (L), no edema noted Pedal (R), no edema noted Generalized Neurologic: motor weakness Skin: normal pigmentation, warm/dry Landry Green Dec 21, 2018 14:14
--- NOTE | 2018-12-21 16:00 | NUR ---
NURSE NOTES: Turned and repositioned pt, oral care provided.
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
--- NOTE | 2018-12-21 19:14 | NUR ---
HAND-OFF: Report given to SARAI Hall.
--- NOTE | 2018-12-21 19:30 | NUR ---
NURSE NOTES: Endorsement received from SARAI Hall. Patient opens eyes spontaneously. Orally intubated with ET 7.5, 22 lipline. AC 16, 600Vt, PEEP 5, 40%FiO2. With OGT, received with ongoing Glucerna 1.2. With order for NPO. Feeding turned off. Placement rechecked per auscultation, unable to assess. KUB stat ordered to verify placement of OGT. With right forearm g 20 and right forearm g 20. SCDs in place. Bilateral soft wrist restraints. Head of bed elevated. Bed locked and in low position. Bed alarm on.
--- NOTE | 2018-12-21 21:30 | NUR ---
NURSE NOTES: [employer] technician at bedside for portable Xray. OGT advanced 10cm.
--- NOTE | 2018-12-21 22:00 | NUR ---
NURSE NOTES: OGT placement with audible sounds upon auscultation. Medication given.
[2018-12-22] VITALS (24 sets, daily range): BP systolic 112–167; BP diastolic 53–100
--- NOTE | 2018-12-22 | NUR ---
NURSE NOTES: Patient asleep at this time. No shortness of breath. Still afib on the monitor.
--- NOTE | 2018-12-22 02:00 | NUR ---
NURSE NOTES: Patient repositioned. Secretions suctioned.
--- NOTE | 2018-12-22 04:00 | NUR ---
NURSE NOTES: Patient passed light brown stool. Bed bath, oral care, change of linens done.
[2018-12-22] MEDS: LORazepam Inj 2mg/ml 1ml IV PRN (04:44)
[2018-12-22] MEDS: Piperacillin/Tazobactam 3.375 GM in NS 110 ML IVPB SCH ×3 (05:36→21:31)
[2018-12-22 05:46] LABS: BASOPHILS % (AUTO) 1.1 % (0.0-2.0); EOSINOPHILS % (AUTO) 1.3 % (0.0-3.0); HEMATOCRIT 28.4 % (42.0-52.0); LYMPHOCYTES % (AUTO) 12.7 % (20.0-45.0); MEAN CORPUSCULAR VOLUME 92 FL (80-99); MONOCYTES % (AUTO) 5.9 % (1.0-10.0); NEUTROPHILS % (AUTO) 79.1 % (45.0-75.0); PLATELET COUNT 105 K/UL (150-450); RED BLOOD COUNT 3.08 M/UL (4.70-6.10); RED CELL DISTRIBUTION WIDTH 16.7 % (11.6-14.8)
--- NOTE | 2018-12-22 06:00 | NUR ---
NURSE NOTES: Repositioned. Oral care done.
[2018-12-22 06:21] LABS: PHOSPHORUS 2.1 MG/DL (2.5-4.9)
[2018-12-22 06:23] LABS: ALANINE AMINOTRANSFERASE 37 U/L (12-78); ALBUMIN 2.1 G/DL (3.4-5.0); ALBUMIN/GLOBULIN RATIO 0.6 (1.0-2.7); ALKALINE PHOSPHATASE 447 U/L (46-116); ANION GAP 14 mmol/L (5-15); ASPARTATE AMINO TRANSFERASE 46 U/L (15-37); BLOOD UREA NITROGEN 21 mg/dL (7-18); CALCIUM 8.1 MG/DL (8.5-10.1); CARBON DIOXIDE 21 MMOL/L (21-32); CHLORIDE 119 MMOL/L (98-107); CREATININE 0.8 MG/DL (0.55-1.30); POTASSIUM 4.3 MMOL/L (3.5-5.1); SODIUM 154 MMOL/L (136-145)
--- NOTE | 2018-12-22 06:38 | Anethesia Preoperative Eval ---
Anesthesia Pre-op PMH/ROS General Date of Evaluation: Dec 22, 2018 Time of Evaluation: 06:35 Anesthesiologist: darcy ASA Score: ASA 4 Mallampati Score Class I : Soft palate, uvula, fauces, pillars visible Class II: Soft palate, uvula, fauces visible Class III: Soft palate, base of uvula visible Class IV: Only hard plate visible Mallampati Classification: Class II Surgeon: amy Diagnosis: gi bleed, anemia Surgical Procedure: egd Anesthesia History: none Social History: smoking - former smoker Family History: no anesthesia problems Allergies: Coded Allergies: No Known Allergies (Unverified , 12/15/18) Medications: see eMAR Patient NPO?: Yes Past Medical History Cardiovascular: Reports: arrhythmia - afib w/ rvr Pulmonary: Reports: other - respiratory failure on mechanical ventilation Gastrointestinal/Genitourinary: Reports: other - dysphagia, atn, renal insuffiency, Anesthesia Pre-op Phys. Exam Physician Exam Last Vital Signs Date Time Temp Pulse Resp B/P (MAP) Pulse Ox O2 Delivery O2 Flow Rate FiO2 12/22/18 06:00 73 17 113/71 (85) 99 12/22/18 05:10 40 12/22/18 04:00 98.0 12/22/18 04:00 Mechanical Ventilator 12/16/18 16:00 2.0 Constitutional: NAD Neurologic: other - stroke Cardiovascular: other - irreg irreg Respiratory: other - oett on ventilator Gastrointestinal: other - inguinal hernia Airway Exam Mallampati Score: Class II MO: limited Neck: decreased rom to lateral rotation and extension/flexion TMD: 2fb ROM: limited Teeth: missing Anesthesia Pre-op A/P Labs Hematology Test 12/22/18 04:20 White Blood Count 6.0 K/UL (4.8-10.8) Red Blood Count 3.08 M/UL (4.70-6.10) L Hemoglobin 9.0 G/DL (14.2-18.0) L Hematocrit 28.4 % (42.0-52.0) L Mean Corpuscular Volume 92 FL (80-99) Mean Corpuscular Hemoglobin 29.2 PG (27.0-31.0) Mean Corpuscular Hemoglobin Concent 31.7 G/DL (32.0-36.0) L Red Cell Distribution Width 16.7 % (11.6-14.8) H Platelet Count 105 K/UL (150-450) L Mean Platelet Volume 6.3 FL (6.5-10.1) L Neutrophils (%) (Auto) 79.1 % (45.0-75.0) H Lymphocytes (%) (Auto) 12.7 % (20.0-45.0) L Monocytes (%) (Auto) 5.9 % (1.0-10.0) Eosinophils (%) (Auto) 1.3 % (0.0-3.0) Basophils (%) (Auto) 1.1 % (0.0-2.0) Chemistry Test 12/22/18 04:20 Sodium Level 154 MMOL/L (136-145) H Potassium Level 4.3 MMOL/L (3.5-5.1) Chloride Level 119 MMOL/L (98-107) H Carbon Dioxide Level 21 MMOL/L (21-32) Anion Gap 14 mmol/L (5-15) Blood Urea Nitrogen 21 mg/dL (7-18) H Creatinine 0.8 MG/DL (0.55-1.30) Estimat Glomerular Filtration Rate mL/min (>60) Glucose Level 94 MG/DL (74-106) Calcium Level 8.1 MG/DL (8.5-10.1) L Phosphorus Level 2.1 MG/DL (2.5-4.9) L Magnesium Level 2.2 MG/DL (1.8-2.4) Total Bilirubin 1.0 MG/DL (0.2-1.0) Aspartate Amino Transf (AST/SGOT) 46 U/L (15-37) H Alanine Aminotransferase (ALT/SGPT) 37 U/L (12-78) Alkaline Phosphatase 447 U/L (46-116) H Total Protein 5.8 G/DL (6.4-8.2) L Albumin 2.1 G/DL (3.4-5.0) L Globulin 3.7 g/dL Albumin/Globulin Ratio 0.6 (1.0-2.7) L Risk Assessment & Plan Assessment: asa4 Plan: mac Status Change Before Surgery: No Pre-Antibiotics Drug: Jeanine Mayes MD Dec 22, 2018 06:38
--- NOTE | 2018-12-22 06:40 | General Progress Note ---
Assessment/Plan Problem List: (1) DM (diabetes mellitus) ICD Codes: E11.9 - Type 2 diabetes mellitus without complications SNOMED: 85253106 (2) Elevated LFTs ICD Codes: R94.5 - Abnormal results of liver function studies SNOMED: 109248974, 091361907 (3) Dysphagia ICD Codes: R13.10 - Dysphagia, unspecified SNOMED: 06196878, 269614197 (4) Severe anemia ICD Codes: D64.9 - Anemia, unspecified SNOMED: 877421859 (5) Atrial fibrillation with rapid ventricular response ICD Codes: I48.91 - Unspecified atrial fibrillation SNOMED: 122849963640521, 650701500 (6) Respiratory failure with hypoxia ICD Codes: J96.91 - Respiratory failure, unspecified with hypoxia SNOMED: 43311741390969343 Qualifiers: Qualified Codes: J96.01 - Acute respiratory failure with hypoxia (7) Irreducible right inguinal hernia ICD Codes: K40.30 - Unilateral inguinal hernia, with obstruction, without gangrene, not specified as recurrent SNOMED: 334061999 Assessment/Plan now intubated stool ob X2 cardiology note reviewed, plan for EGD today ppi surg in put appreciated Subjective ROS Limited/Unobtainable: No Allergies: Coded Allergies: No Known Allergies (Unverified , 12/15/18) Objective Last 24 Hour Vital Signs Date Time Temp Pulse Resp B/P (MAP) Pulse Ox O2 Delivery O2 Flow Rate FiO2 12/22/18 06:00 73 17 113/71 (85) 99 12/22/18 05:10 78 18 40 12/22/18 05:00 75 19 138/60 (86) 99 12/22/18 04:00 100 12/22/18 04:00 40 12/22/18 04:00 98.0 89 26 159/77 (104) 99 12/22/18 04:00 Mechanical Ventilator 12/22/18 03:30 95 26 40 12/22/18 03:00 88 22 153/74 (100) 99 12/22/18 02:00 88 22 155/82 (106) 99 12/22/18 01:30 125 28 40 12/22/18 01:00 96 25 161/75 (103) 99 12/22/18 00:00 90 12/22/18 00:00 Mechanical Ventilator 12/22/18 00:00 40 12/22/18 00:00 97.9 114 25 148/75 (99) 99 12/21/18 23:30 141 29 40 12/21/18 23:00 78 25 147/96 (113) 99 12/21/18 22:00 94 23 150/93 (112) 99 12/21/18 21:37 80 180/90 12/21/18 21:14 100 20 40 12/21/18 21:00 90 23 137/80 (99) 97 12/21/18 20:00 106 12/21/18 20:00 Mechanical Ventilator 12/21/18 20:00 98.0 104 25 155/89 (111) 97 12/21/18 20:00 40 12/21/18 19:30 101 21 40 12/21/18 19:00 80 17 140/79 (99) 97 12/21/18 18:00 79 17 138/80 (99) 97 12/21/18 17:00 81 17 122/87 (99) 97 12/21/18 16:56 87 25 40 12/21/18 16:00 98.7 80 22 139/69 (92) 100 12/21/18 16:00 73 12/21/18 16:00 40 12/21/18 16:00 Mechanical Ventilator 12/21/18 15:08 94 25 40 12/21/18 15:00 74 17 145/82 (103) 97 12/21/18 14:00 73 17 154/99 (117) 97 12/21/18 13:00 87 23 152/86 (108) 97 12/21/18 12:57 77 21 40 12/21/18 12:00 83 12/21/18 12:00 98.7 80 22 148/80 (102) 100 12/21/18 12:00 40 12/21/18 12:00 Mechanical Ventilator 12/21/18 11:12 81 26 40 12/21/18 11:00 87 23 148/70 (96) 97 12/21/18 10:00 89 22 148/84 (105) 100 12/21/18 09:19 87 12/21/18 09:19 87 158/65 12/21/18 09:00 88 22 129/79 (96) 100 12/21/18 08:56 87 26 40 12/21/18 08:55 100 3/5/19 08:00 40 12/21/18 08:00 88 12/21/18 08:00 98.5 87 21 133/74 (93) 99 12/21/18 08:00 Mechanical Ventilator 12/21/18 07:23 81 19 40 12/21/18 07:00 80 22 145/60 (88) 100 Intake and Output 12/21/18 12/22/18 19:00 07:00 Intake Total 390.0 ml 110.0 ml Balance 390.0 ml 110.0 ml IV Total 110.0 ml 110.0 ml Tube Feeding 280 ml # Voids 2 4 # Bowel Movements 4 3 Laboratory Tests 12/21/18 08:30: Arterial Blood pH 7.478H, Arterial Blood Partial Pressure CO2 30.6L, Arterial Blood Partial Pressure O2 99.8, Arterial Blood HCO3 22.2, Arterial Blood Oxygen Saturation 96.8, Arterial Blood Base Excess -0.9, Remberto Test Positive 12/21/18 09:45: Arterial Blood pH 7.441, Arterial Blood Partial Pressure CO2 29.0L, Arterial Blood Partial Pressure O2 52.5L, Arterial Blood HCO3 19.3L, Arterial Blood Oxygen Saturation 86.4*L, Arterial Blood Base Excess -4.0L, Remberto Test Positive 12/22/18 04:20: White Blood Count 6.0, Red Blood Count 3.08L, Hemoglobin 9.0L, Hematocrit 28.4L , Mean Corpuscular Volume 92, Mean Corpuscular Hemoglobin 29.2, Mean Corpuscular Hemoglobin Concent 31.7L, Red Cell Distribution Width 16.7H, Platelet Count 105L, Mean Platelet Volume 6.3L, Neutrophils (%) (Auto) 79.1H, Lymphocytes (%) (Auto) 12.7L, Monocytes (%) (Auto) 5.9, Eosinophils (%) (Auto) 1.3, Basophils (%) (Auto) 1.1, Sodium Level 154H, Potassium Level 4.3, Chloride Level 119H, Carbon Dioxide Level 21, Anion Gap 14, Blood Urea Nitrogen 21H, Creatinine 0.8, Estimat Glomerular Filtration Rate , Glucose Level 94, Calcium Level 8.1L, Phosphorus Level 2.1L, Magnesium Level 2.2, Total Bilirubin 1.0, Aspartate Amino Transf (AST/SGOT) 46H, Alanine Aminotransferase (ALT/SGPT) 37, Alkaline Phosphatase 447H, Total Protein 5.8L, Albumin 2.1L, Globulin 3.7, Albumin/Globulin Ratio 0.6L Height (Feet): 5 Height (Inches): 6.00 Weight (Pounds): 115 General Appearance: lethargic EENT: normal ENT inspection Neck: supple Cardiovascular: normal rate Respiratory/Chest: decreased breath sounds Abdomen: normal bowel sounds, non tender, soft Extremities: non-tender Mike Caruso MD Dec 22, 2018 06:40
--- NOTE | 2018-12-22 06:40 | Pre-Procedure Note/Attestation ---
Pre-Procedure Note/Attestation Complete Prior to Procedure Planned Procedure: not applicable Procedure Narrative: egd Indications for Procedure Pre-Operative Diagnosis: gib Attestation I attest that I discussed the nature of the procedure; its benefits; risks and complications; and alternatives (and the risks and benefits of such alternatives ), prior to the procedure, with the patient (or the patient's legal guest services representative). I attest that, if there was a reasonable possibility of needing a blood transfusion, the patient (or the patient's legal guest services representative) was given the [facility] standardized written summary, pursuant to the [place] Blood Safety Act ([place] Health and Safety Code # 1645, as amended). I attest that I re-evaluated the patient just prior to the surgery and that there has been no change in the patient's H&P, except as documented below: Mike Caruso MD Dec 22, 2018 06:40
[2018-12-22] MEDS ORDERED: Atropine Inj 1mg/10ml Syr IV PRN (06:45)
[2018-12-22] MEDS ORDERED: fentaNYL 100 mcg/2 mL IV PRN (06:45)
[2018-12-22] MEDS ORDERED: DiphenhydrAMINE 50mg/ml Inj IVP PRN (06:45)
[2018-12-22] MEDS ORDERED: Midazolam 2mg/2ml Inj IVP PRN (06:45)
--- NOTE | 2018-12-22 06:50 | NUR ---
RESPIRATORY NOTE: Patient received mechanically ventilated on PB840 with current ordered vent settings. Patient is orally intubate with an ETT tube size 7.5 and 22cm at the lip line that is secure with an anchor fast. Patient presents with bilateral coarse breath sounds and scant amount of thin/thick brownish secretions were suctioned via inline suction system without incident. Vent alarms are functional and audible. There is an ambu bag available at the bedside and the vent is connected to a red outlet. Will continue to monitor patient.
--- NOTE | 2018-12-22 07:30 | NUR ---
HAND-OFF: Report given to SARAI Rubi.
--- NOTE | 2018-12-22 08:45 | NUR ---
NURSE NOTES: Dr. Caruso at the bedside to begin EGD procedure, patient tolerated procedure well with no distress noted, gastritis with no active bleeding were the finding, will continue to monitor.
[2018-12-22] MEDS ORDERED: Propofol 200mg/20ml IV ONE (09:00)
[2018-12-22] MEDS ORDERED: Lidocaine 1% MPF 10mg/ml 5ml ONE (09:00)
[2018-12-22] MEDS ORDERED: NS 500ML IVPB ONE (09:05)
--- NOTE | 2018-12-22 09:17 | Endoscopy Procedure Note ---
Endoscopy Procedure Note General Indication for Procedure: gib Procedures Performed: EGD Operative Findings/Diagnosis: gastritis Specimen: yes Pt Tolerated Procedure Well: Yes Estimated Blood Loss: none Anesthesia Anesthesiologist: darcy Anesthesia: MAC Inserted Devices Implant(s) used?: No GI Core Measures 50 yrs or older w/o bx or poly: Not Applicable 10yrs. F/U not recommended: Not Applicable Mike Caruso MD Dec 22, 2018 09:16
--- NOTE | 2018-12-22 10:04 | Immediate Post-Op Evaluation ---
Immediate Post-Op Evalulation Immediate Post-Op Evalulation Procedure: egd w/bx Date of Evaluation: Dec 22, 2018 Time of Evaluation: 09:55 IV Fluids: 75ml 0.9ns Blood Products: none Estimated Blood Loss: negligible Blood Pressure Systolic: 104 Blood Pressure Diastolic: 43 Pulse Rate: 74 Respiratory Rate: 16 O2 Sat by Pulse Oximetry: 100 Pain Score (1-10): 0 Nausea: No Vomiting: No Complications none Patient Status: awake, reacts, patent, ventilated Hydration Status: adequate Drug: Jeanine Mayes MD Dec 22, 2018 10:04
--- NOTE | 2018-12-22 10:08 | 48 Hour Post Anesthesia Eval ---
Post Anesthesia Evaluation Procedure: egd w/bx Date of Evaluation: Dec 22, 2018 Time of Evaluation: 09:57 Blood Pressure Systolic: 110 0: 63 Pulse Rate: 74 Respiratory Rate: 16 O2 Sat by Pulse Oximetry: 100 Airway: patent Nausea: No Vomiting: No Pain Intensity: 0 Hydration Status: adequate Cardiopulmonary Status: stable Mental Status/LOC: patient returned to baseline Post-Anesthesia Complications: none Follow-up care needed: N/A Jeanine Bush MD Dec 22, 2018 10:08
--- NOTE | 2018-12-22 10:17 | Pulmonolgy Critical Care Note ---
Critical Care - Asmt/Plan Problems: (1) Acute respiratory failure (2) Multilobar lung infiltrate (3) Severe anemia (4) ATN (acute tubular necrosis) (5) Atrial fibrillation with rapid ventricular response Respiratory: monitor respiratory rate, adjust FIO2, CXR Cardiac: continue to monitor HR/BP Renal: F/U I&O, keep IV fluid, other - d5w to correct hypernatremai Infectious Disease: check cultures Gastrointestinal: start feedings Endocrine: monitor blood sugar, check TSH Hematologic: monitor H/H Neurologic: PRN Ativan, PRN Morphine, keep patient comfortable Prophylaxis: Protonix, Heparin Disposition: keep in ICU Time Spent (Minutes): 40 Notes Reviewed: marine habitat resource specialist, cardio, renal Discussed with: nurses, consultants, case management specialistmanager of marketing - Objective Last 24 Hour Vital Signs Date Time Temp Pulse Resp B/P (MAP) Pulse Ox O2 Delivery O2 Flow Rate FiO2 12/22/18 10:08 74 16 100 12/22/18 10:04 74 16 100 12/22/18 08:44 87 19 40 12/22/18 06:45 65 17 40 12/22/18 06:00 73 17 113/71 (85) 99 12/22/18 05:10 78 18 40 12/22/18 05:00 75 19 138/60 (86) 99 12/22/18 04:00 100 12/22/18 04:00 40 12/22/18 04:00 98.0 89 26 159/77 (104) 99 12/22/18 04:00 Mechanical Ventilator 12/22/18 03:30 95 26 40 12/22/18 03:00 88 22 153/74 (100) 99 12/22/18 02:00 88 22 155/82 (106) 99 12/22/18 01:30 125 28 40 12/22/18 01:00 96 25 161/75 (103) 99 12/22/18 00:00 90 12/22/18 00:00 Mechanical Ventilator 12/22/18 00:00 40 12/22/18 00:00 97.9 114 25 148/75 (99) 99 12/21/18 23:30 141 29 40 12/21/18 23:00 78 25 147/96 (113) 99 12/21/18 22:00 94 23 150/93 (112) 99 12/21/18 21:37 80 180/90 12/21/18 21:14 100 20 40 12/21/18 21:00 90 23 137/80 (99) 97 12/21/18 20:00 106 12/21/18 20:00 Mechanical Ventilator 12/21/18 20:00 98.0 104 25 155/89 (111) 97 12/21/18 20:00 40 12/21/18 19:30 101 21 40 12/21/18 19:00 80 17 140/79 (99) 97 12/21/18 18:00 79 17 138/80 (99) 97 12/21/18 17:00 81 17 122/87 (99) 97 12/21/18 16:56 87 25 40 12/21/18 16:00 98.7 80 22 139/69 (92) 100 12/21/18 16:00 73 12/21/18 16:00 40 12/21/18 16:00 Mechanical Ventilator 12/21/18 15:08 94 25 40 12/21/18 15:00 74 17 145/82 (103) 97 12/21/18 14:00 73 17 154/99 (117) 97 12/21/18 13:00 87 23 152/86 (108) 97 12/21/18 12:57 77 21 40 12/21/18 12:00 83 12/21/18 12:00 98.7 80 22 148/80 (102) 100 12/21/18 12:00 40 12/21/18 12:00 Mechanical Ventilator 12/21/18 11:12 81 26 40 12/21/18 11:00 87 23 148/70 (96) 97 Status: sedated Condition: critical HEENT: atraumatic Neck: full ROM Lungs: rales, rhonchi Heart: HR/BP stable Abdomen: soft, non-tender Extremities: no C/C/E Decubiti: location Critical Care - Subjective ROS Limited/Unobtainable: Yes Interval Events: egd done today, showing gastritis FI02: 40 Vent Support Breath Rate: 16 Vent Support Mode: AC Vent Tidal Volume: 600 Sputum Amount: Scant PEEP: 5.0 PIP: 24 Tube Feeding Amount: 35 I&O: Intake and Output 12/21/18 12/22/18 19:00 07:00 Intake Total 390.0 ml 110.0 ml Balance 390.0 ml 110.0 ml IV Total 110.0 ml 110.0 ml Tube Feeding 280 ml # Voids 2 4 # Bowel Movements 4 3 CXR: pending ET-Tube: 7.5 ET Position: 22 Labs: Laboratory Tests Test 12/22/18 04:20 12/22/18 08:30 White Blood Count 6.0 K/UL (4.8-10.8) Red Blood Count 3.08 M/UL (4.70-6.10) L Hemoglobin 9.0 G/DL (14.2-18.0) L Hematocrit 28.4 % (42.0-52.0) L Mean Corpuscular Volume 92 FL (80-99) Mean Corpuscular Hemoglobin 29.2 PG (27.0-31.0) Mean Corpuscular Hemoglobin Concent 31.7 G/DL (32.0-36.0) L Red Cell Distribution Width 16.7 % (11.6-14.8) H Platelet Count 105 K/UL (150-450) L Mean Platelet Volume 6.3 FL (6.5-10.1) L Neutrophils (%) (Auto) 79.1 % (45.0-75.0) H Lymphocytes (%) (Auto) 12.7 % (20.0-45.0) L Monocytes (%) (Auto) 5.9 % (1.0-10.0) Eosinophils (%) (Auto) 1.3 % (0.0-3.0) Basophils (%) (Auto) 1.1 % (0.0-2.0) Sodium Level 154 MMOL/L (136-145) H Potassium Level 4.3 MMOL/L (3.5-5.1) Chloride Level 119 MMOL/L (98-107) H Carbon Dioxide Level 21 MMOL/L (21-32) Anion Gap 14 mmol/L (5-15) Blood Urea Nitrogen 21 mg/dL (7-18) H Creatinine 0.8 MG/DL (0.55-1.30) Estimat Glomerular Filtration Rate mL/min (>60) Glucose Level 94 MG/DL (74-106) Calcium Level 8.1 MG/DL (8.5-10.1) L Phosphorus Level 2.1 MG/DL (2.5-4.9) L Magnesium Level 2.2 MG/DL (1.8-2.4) Total Bilirubin 1.0 MG/DL (0.2-1.0) Aspartate Amino Transf (AST/SGOT) 46 U/L (15-37) H Alanine Aminotransferase (ALT/SGPT) 37 U/L (12-78) Alkaline Phosphatase 447 U/L (46-116) H Total Protein 5.8 G/DL (6.4-8.2) L Albumin 2.1 G/DL (3.4-5.0) L Globulin 3.7 g/dL Albumin/Globulin Ratio 0.6 (1.0-2.7) L Arterial Blood pH 7.434 (7.350-7.450) Arterial Blood Partial Pressure CO2 27.7 mmHg (35.0-45.0) L Arterial Blood Partial Pressure O2 144.6 mmHg (75.0-100.0) H Arterial Blood HCO3 18.1 mmol/L (22.0-26.0) L Arterial Blood Oxygen Saturation 98.3 % (95-100) Arterial Blood Base Excess -5.1 (-2-2) L Remberto Test Positive Bryan Emerson MD Dec 22, 2018 10:17
--- NOTE | 2018-12-22 10:45 | NUR ---
NURSE NOTES: patient unable to wean at this time, remains sedated after EGD procedure, HR remains decreasing to the 50's and then returns to around 65-70. Rt notified to wait for weaning trial.
--- NOTE | 2018-12-22 10:47 | Diagnostic Imaging Report ---
Indication: Post nasogastric tube placement Technique: Supine view of the upper abdomen Comparison: 12/17/2018 Findings: There is a nasogastric tube in place, tip projecting at the level gastric fundus body junction, proximal port just beyond the gastroesophageal junction. Position is similar to the previous study. Included lung bases demonstrate extensive parenchymal disease Impression: Satisfactory position of nasogastric tube This agrees with the preliminary interpretation provided overnight by [facility] teleradiology service.
--- NOTE | 2018-12-22 11:11 | Diagnostic Imaging Report ---
Indication: Dyspnea Technique: One view of the chest Comparison: 12/21/2018 Findings: Stable tube positions. Bilateral diffuse interstitial and airspace disease is probably unchanged, allowing for technical differences. The heart size is normal Impression: Unchanged, over one day, findings as above.
[2018-12-22] MEDS: Pantoprazole Inj IV SCH (11:17)
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
[2018-12-22] MEDS ORDERED: Sodium Phosphate 30 MM in NS 275 ML IV ONE (12:45)
--- NOTE | 2018-12-22 12:45 | NUR ---
NURSE NOTES: Dr. Emerson notified regarding patient phosphorus level and ordered to have patient given 30mm, no further orders given at this time,
--- NOTE | 2018-12-22 14:43 | NUR ---
RESPIRATORY NOTE: Patient initiated on weaning per Dr's orders and weaning protocol. On CPAP with pressure support of 8. RN is tobias. WIll follow with an ABG upon successful SBT. Will continue to monitor.
--- NOTE | 2018-12-22 14:51 | Surgery Progress Note ---
Surgery Progress Note Objective Last 24 Hour Vital Signs Date Time Temp Pulse Resp B/P (MAP) Pulse Ox O2 Delivery O2 Flow Rate FiO2 12/22/18 14:00 91 21 151/81 (104) 98 12/22/18 13:00 93 21 148/74 (98) 95 12/22/18 12:32 78 17 40 12/22/18 12:00 Mechanical Ventilator 12/22/18 12:00 40 12/22/18 12:00 97.6 76 16 136/62 (86) 100 12/22/18 12:00 80 12/22/18 11:00 93 22 157/90 (112) 100 12/22/18 10:56 81 20 40 12/22/18 10:08 74 16 100 12/22/18 10:04 74 16 100 12/22/18 10:00 84 18 119/53 (75) 100 12/22/18 09:00 82 18 144/89 (107) 100 12/22/18 09:00 48 12/22/18 09:00 56 105/59 12/22/18 08:44 87 19 40 12/22/18 08:00 40 12/22/18 08:00 97.8 78 18 143/75 (97) 100 12/22/18 08:00 Mechanical Ventilator 12/22/18 08:00 92 12/22/18 07:00 68 18 112/61 (78) 100 12/22/18 06:45 65 17 40 12/22/18 06:00 73 17 113/71 (85) 99 12/22/18 05:10 78 18 40 12/22/18 05:00 75 19 138/60 (86) 99 12/22/18 04:00 100 12/22/18 04:00 40 12/22/18 04:00 98.0 89 26 159/77 (104) 99 12/22/18 04:00 Mechanical Ventilator 12/22/18 03:30 95 26 40 12/22/18 03:00 88 22 153/74 (100) 99 12/22/18 02:00 88 22 155/82 (106) 99 12/22/18 01:30 125 28 40 12/22/18 01:00 96 25 161/75 (103) 99 12/22/18 00:00 90 12/22/18 00:00 Mechanical Ventilator 12/22/18 00:00 40 12/22/18 00:00 97.9 114 25 148/75 (99) 99 12/21/18 23:30 141 29 40 12/21/18 23:00 78 25 147/96 (113) 99 12/21/18 22:00 94 23 150/93 (112) 99 12/21/18 21:37 80 180/90 12/21/18 21:14 100 20 40 12/21/18 21:00 90 23 137/80 (99) 97 12/21/18 20:00 106 12/21/18 20:00 Mechanical Ventilator 12/21/18 20:00 98.0 104 25 155/89 (111) 97 12/21/18 20:00 40 12/21/18 19:30 101 21 40 12/21/18 19:00 80 17 140/79 (99) 97 12/21/18 18:00 79 17 138/80 (99) 97 12/21/18 17:00 81 17 122/87 (99) 97 12/21/18 16:56 87 25 40 12/21/18 16:00 98.7 80 22 139/69 (92) 100 12/21/18 16:00 73 12/21/18 16:00 40 12/21/18 16:00 Mechanical Ventilator 12/21/18 15:08 94 25 40 12/21/18 15:00 74 17 145/82 (103) 97 I&O Intake and Output 12/21/18 12/22/18 18:59 06:59 Intake Total 355.0 ml 145.0 ml Output Total 200 ml Balance 155.0 ml 145.0 ml IV Total 110.0 ml 110.0 ml Tube Feeding 245 ml 35 ml Output Urine Total 200 ml # Voids 2 4 # Bowel Movements 1 6 Dressing: other Wound: other Drains: other Cardiovascular: RSR Respiratory: decreased breath sounds Abdomen: soft, non-tender, non-distended Extremities: other Laboratory Tests Test 12/22/18 04:20 12/22/18 08:30 White Blood Count 6.0 K/UL (4.8-10.8) Red Blood Count 3.08 M/UL (4.70-6.10) L Hemoglobin 9.0 G/DL (14.2-18.0) L Hematocrit 28.4 % (42.0-52.0) L Mean Corpuscular Volume 92 FL (80-99) Mean Corpuscular Hemoglobin 29.2 PG (27.0-31.0) Mean Corpuscular Hemoglobin Concent 31.7 G/DL (32.0-36.0) L Red Cell Distribution Width 16.7 % (11.6-14.8) H Platelet Count 105 K/UL (150-450) L Mean Platelet Volume 6.3 FL (6.5-10.1) L Neutrophils (%) (Auto) 79.1 % (45.0-75.0) H Lymphocytes (%) (Auto) 12.7 % (20.0-45.0) L Monocytes (%) (Auto) 5.9 % (1.0-10.0) Eosinophils (%) (Auto) 1.3 % (0.0-3.0) Basophils (%) (Auto) 1.1 % (0.0-2.0) Sodium Level 154 MMOL/L (136-145) H Potassium Level 4.3 MMOL/L (3.5-5.1) Chloride Level 119 MMOL/L (98-107) H Carbon Dioxide Level 21 MMOL/L (21-32) Anion Gap 14 mmol/L (5-15) Blood Urea Nitrogen 21 mg/dL (7-18) H Creatinine 0.8 MG/DL (0.55-1.30) Estimat Glomerular Filtration Rate mL/min (>60) Glucose Level 94 MG/DL (74-106) Calcium Level 8.1 MG/DL (8.5-10.1) L Phosphorus Level 2.1 MG/DL (2.5-4.9) L Magnesium Level 2.2 MG/DL (1.8-2.4) Total Bilirubin 1.0 MG/DL (0.2-1.0) Aspartate Amino Transf (AST/SGOT) 46 U/L (15-37) H Alanine Aminotransferase (ALT/SGPT) 37 U/L (12-78) Alkaline Phosphatase 447 U/L (46-116) H Total Protein 5.8 G/DL (6.4-8.2) L Albumin 2.1 G/DL (3.4-5.0) L Globulin 3.7 g/dL Albumin/Globulin Ratio 0.6 (1.0-2.7) L Arterial Blood pH 7.434 (7.350-7.450) Arterial Blood Partial Pressure CO2 27.7 mmHg (35.0-45.0) L Arterial Blood Partial Pressure O2 144.6 mmHg (75.0-100.0) H Arterial Blood HCO3 18.1 mmol/L (22.0-26.0) L Arterial Blood Oxygen Saturation 98.3 % (95-100) Arterial Blood Base Excess -5.1 (-2-2) L Remberto Test Positive Plan Problems: (1) Inguinal hernia Assessment & Plan: 78 year old male with massive inguinal hernia with bowel contents. CT with Massive indirect right inguinal hernia, containing the proximal colon and much if not most of the small bowel. No definite evidence of obstruction or strangulation Anasarca, with diffuse extensive bilateral pulmonary edema, bilateral pleural effusions, small amount of free intraperitoneal fluid, and extensive edema of the subcutaneous and mediastinal fat Colonic diverticulosis Diffuse skeletal osteosclerosis Distended bladder Prostatomegaly Large bilateral renal cysts. Calcification in the periventricular right kidney likely represent old involuted calcified cyst Nasogastric tube Incidental finding right lobe liver cyst On exam large inguinal hernia with bowel contents in scrotum not reducible but no signs of obstruction / strangulation. in reviewing CT likely loss of domain given patients body habitus compared to hernia size. patient awake but intubated on vent support. no tenderness but does have discomfort with manipulation. given above no acute surgical intervention planned as this is likely chronic and with loss of domain. unlikely to be incarcerated but will need to keep an eye on it as bowel can obstruction will follow with exams thank you Yordy Tucker Dec 22, 2018 14:51
--- NOTE | 2018-12-22 15:25 | NUR ---
RESPIRATORY NOTE: Patient became labored, short of breath with increase in RR, HR, and desaturation. Failed weaning. Placed back on AC. RN made aware.
--- NOTE | 2018-12-22 15:30 | NUR ---
NURSE NOTES: patient returned to ac16, TV: 600, FIo2 40% with peep of 5, patient respirations noted to be at the 31-38 with shallow and quick breaths, heart rate also noted to be at 110-125, will continue to monitor.
--- NOTE | 2018-12-22 15:31 | General Progress Note ---
Assessment/Plan Problem List: (1) Respiratory failure with hypoxia ICD Codes: J96.91 - Respiratory failure, unspecified with hypoxia SNOMED: 76995914835017170 Qualifiers: Qualified Codes: J96.01 - Acute respiratory failure with hypoxia (2) Atrial fibrillation with rapid ventricular response ICD Codes: I48.91 - Unspecified atrial fibrillation SNOMED: 111980737180357, 296753428 (3) Severe anemia ICD Codes: D64.9 - Anemia, unspecified SNOMED: 973976679 (4) ATN (acute tubular necrosis) ICD Codes: N17.0 - Acute kidney failure with tubular necrosis SNOMED: 03720969 (5) DM (diabetes mellitus) ICD Codes: E11.9 - Type 2 diabetes mellitus without complications SNOMED: 13245459 Status: stable, progressing Assessment/Plan vent transfuse prn cardio heme eval f/u cbc bmp am wean vent Subjective Constitutional: Reports: weakness Allergies: Coded Allergies: No Known Allergies (Unverified , 12/15/18) All Systems: reviewed and negative except above Subjective intub awake in icu Objective Last 24 Hour Vital Signs Date Time Temp Pulse Resp B/P (MAP) Pulse Ox O2 Delivery O2 Flow Rate FiO2 12/22/18 14:37 85 21 40 12/22/18 14:00 91 21 151/81 (104) 98 12/22/18 13:00 93 21 148/74 (98) 95 12/22/18 12:32 78 17 40 12/22/18 12:00 Mechanical Ventilator 12/22/18 12:00 40 12/22/18 12:00 97.6 76 16 136/62 (86) 100 12/22/18 12:00 80 12/22/18 11:00 93 22 157/90 (112) 100 12/22/18 10:56 81 20 40 12/22/18 10:08 74 16 100 12/22/18 10:04 74 16 100 12/22/18 10:00 84 18 119/53 (75) 100 12/22/18 09:00 82 18 144/89 (107) 100 12/22/18 09:00 48 12/22/18 09:00 56 105/59 12/22/18 08:44 87 19 40 12/22/18 08:00 40 12/22/18 08:00 97.8 78 18 143/75 (97) 100 3/6/19 08:00 Mechanical Ventilator 12/22/18 08:00 92 12/22/18 07:00 68 18 112/61 (78) 100 12/22/18 06:45 65 17 40 12/22/18 06:00 73 17 113/71 (85) 99 12/22/18 05:10 78 18 40 12/22/18 05:00 75 19 138/60 (86) 99 12/22/18 04:00 100 12/22/18 04:00 40 12/22/18 04:00 98.0 89 26 159/77 (104) 99 12/22/18 04:00 Mechanical Ventilator 12/22/18 03:30 95 26 40 12/22/18 03:00 88 22 153/74 (100) 99 12/22/18 02:00 88 22 155/82 (106) 99 12/22/18 01:30 125 28 40 12/22/18 01:00 96 25 161/75 (103) 99 12/22/18 00:00 90 12/22/18 00:00 Mechanical Ventilator 12/22/18 00:00 40 12/22/18 00:00 97.9 114 25 148/75 (99) 99 12/21/18 23:30 141 29 40 12/21/18 23:00 78 25 147/96 (113) 99 12/21/18 22:00 94 23 150/93 (112) 99 12/21/18 21:37 80 180/90 12/21/18 21:14 100 20 40 12/21/18 21:00 90 23 137/80 (99) 97 12/21/18 20:00 106 12/21/18 20:00 Mechanical Ventilator 12/21/18 20:00 98.0 104 25 155/89 (111) 97 12/21/18 20:00 40 12/21/18 19:30 101 21 40 12/21/18 19:00 80 17 140/79 (99) 97 12/21/18 18:00 79 17 138/80 (99) 97 12/21/18 17:00 81 17 122/87 (99) 97 12/21/18 16:56 87 25 40 12/21/18 16:00 98.7 80 22 139/69 (92) 100 3/5/19 16:00 73 12/21/18 16:00 40 12/21/18 16:00 Mechanical Ventilator Intake and Output 12/21/18 12/22/18 18:59 06:59 Intake Total 355.0 ml 145.0 ml Output Total 200 ml Balance 155.0 ml 145.0 ml IV Total 110.0 ml 110.0 ml Tube Feeding 245 ml 35 ml Output Urine Total 200 ml # Voids 2 4 # Bowel Movements 1 6 Laboratory Tests 12/22/18 04:20: White Blood Count 6.0, Red Blood Count 3.08L, Hemoglobin 9.0L, Hematocrit 28.4L , Mean Corpuscular Volume 92, Mean Corpuscular Hemoglobin 29.2, Mean Corpuscular Hemoglobin Concent 31.7L, Red Cell Distribution Width 16.7H, Platelet Count 105L, Mean Platelet Volume 6.3L, Neutrophils (%) (Auto) 79.1H, Lymphocytes (%) (Auto) 12.7L, Monocytes (%) (Auto) 5.9, Eosinophils (%) (Auto) 1.3, Basophils (%) (Auto) 1.1, Sodium Level 154H, Potassium Level 4.3, Chloride Level 119H, Carbon Dioxide Level 21, Anion Gap 14, Blood Urea Nitrogen 21H, Creatinine 0.8, Estimat Glomerular Filtration Rate , Glucose Level 94, Calcium Level 8.1L, Phosphorus Level 2.1L, Magnesium Level 2.2, Total Bilirubin 1.0, Aspartate Amino Transf (AST/SGOT) 46H, Alanine Aminotransferase (ALT/SGPT) 37, Alkaline Phosphatase 447H, Total Protein 5.8L, Albumin 2.1L, Globulin 3.7, Albumin/Globulin Ratio 0.6L 12/22/18 08:30: Arterial Blood pH 7.434, Arterial Blood Partial Pressure CO2 27.7L, Arterial Blood Partial Pressure O2 144.6H, Arterial Blood HCO3 18.1L, Arterial Blood Oxygen Saturation 98.3, Arterial Blood Base Excess -5.1L, Remberto Test Positive Height (Feet): 5 Height (Inches): 6.00 Weight (Pounds): 115 General Appearance: alert EENT: normal ENT inspection Neck: normal alignment Cardiovascular: normal peripheral pulses, normal rate, regular rhythm Respiratory/Chest: chest wall non-tender, lungs clear, normal breath sounds Abdomen: normal bowel sounds, non tender, soft Extremities: normal inspection Edema: no edema noted Arm (L), no edema noted Arm (R), no edema noted Leg (L), no edema noted Leg (R), no edema noted Pedal (L), no edema noted Pedal (R), no edema noted Generalized Neurologic: motor weakness Skin: normal pigmentation, warm/dry Landry Green DO Dec 22, 2018 15:31
--- NOTE | 2018-12-22 16:13 | Cardiac Electrophysiology PN ---
Assessment/Plan Assessment/Plan 1. Atrial fibrillation with rapid ventricular response. This could have been precipitated due to the patient's profound anemia with hemoglobin of 3.5. Echocardiogram showed ejection fraction of 45% with moderate to severe pulmonary hypertension. On Lopressor 100 bid and Dig 0.25 daily Off anticoagulations for gastrointestinal bleed and hemoglobin 3.5. 2. Troponin leak due to atrial fib with RVR 3. Hypertension. Continue Metoprolol . 4. Profound anemia, hemoglobin of 3.5. The patient was evaluated by Dr. Caruso and Berkley. EGD in am by Dr Caruso 5. Respiratory failure, intubated per Dr. Emerson. 6 . Mild azotemia, BUN of 20, creatinine 1.0. DW RN Subjective Subjective In ICU on Lopressor 100 bid and Digoxin 0.25 daily. RN at bedside. In atrial fib with controlled rate Objective Last 24 Hour Vital Signs Date Time Temp Pulse Resp B/P (MAP) Pulse Ox O2 Delivery O2 Flow Rate FiO2 12/22/18 14:37 85 21 40 12/22/18 14:00 91 21 151/81 (104) 98 12/22/18 13:00 93 21 148/74 (98) 95 12/22/18 12:32 78 17 40 12/22/18 12:00 Mechanical Ventilator 12/22/18 12:00 40 12/22/18 12:00 97.6 76 16 136/62 (86) 100 12/22/18 12:00 80 12/22/18 11:00 93 22 157/90 (112) 100 12/22/18 10:56 81 20 40 12/22/18 10:08 74 16 100 12/22/18 10:04 74 16 100 12/22/18 10:00 84 18 119/53 (75) 100 12/22/18 09:00 82 18 144/89 (107) 100 12/22/18 09:00 48 12/22/18 09:00 56 105/59 12/22/18 08:44 87 19 40 12/22/18 08:00 40 12/22/18 08:00 97.8 78 18 143/75 (97) 100 12/22/18 08:00 Mechanical Ventilator 12/22/18 08:00 92 12/22/18 07:00 68 18 112/61 (78) 100 12/22/18 06:45 65 17 40 12/22/18 06:00 73 17 113/71 (85) 99 12/22/18 05:10 78 18 40 12/22/18 05:00 75 19 138/60 (86) 99 12/22/18 04:00 100 12/22/18 04:00 40 12/22/18 04:00 98.0 89 26 159/77 (104) 99 12/22/18 04:00 Mechanical Ventilator 12/22/18 03:30 95 26 40 12/22/18 03:00 88 22 153/74 (100) 99 12/22/18 02:00 88 22 155/82 (106) 99 12/22/18 01:30 125 28 40 12/22/18 01:00 96 25 161/75 (103) 99 12/22/18 00:00 90 12/22/18 00:00 Mechanical Ventilator 12/22/18 00:00 40 12/22/18 00:00 97.9 114 25 148/75 (99) 99 12/21/18 23:30 141 29 40 12/21/18 23:00 78 25 147/96 (113) 99 12/21/18 22:00 94 23 150/93 (112) 99 12/21/18 21:37 80 180/90 12/21/18 21:14 100 20 40 12/21/18 21:00 90 23 137/80 (99) 97 12/21/18 20:00 106 12/21/18 20:00 Mechanical Ventilator 12/21/18 20:00 98.0 104 25 155/89 (111) 97 12/21/18 20:00 40 12/21/18 19:30 101 21 40 12/21/18 19:00 80 17 140/79 (99) 97 12/21/18 18:00 79 17 138/80 (99) 97 12/21/18 17:00 81 17 122/87 (99) 97 12/21/18 16:56 87 25 40 Intake and Output 12/21/18 12/22/18 18:59 06:59 Intake Total 355.0 ml 145.0 ml Output Total 200 ml Balance 155.0 ml 145.0 ml IV Total 110.0 ml 110.0 ml Tube Feeding 245 ml 35 ml Output Urine Total 200 ml # Voids 2 4 # Bowel Movements 1 6 Laboratory Tests Test 12/22/18 04:20 12/22/18 08:30 White Blood Count 6.0 K/UL (4.8-10.8) Red Blood Count 3.08 M/UL (4.70-6.10) L Hemoglobin 9.0 G/DL (14.2-18.0) L Hematocrit 28.4 % (42.0-52.0) L Mean Corpuscular Volume 92 FL (80-99) Mean Corpuscular Hemoglobin 29.2 PG (27.0-31.0) Mean Corpuscular Hemoglobin Concent 31.7 G/DL (32.0-36.0) L Red Cell Distribution Width 16.7 % (11.6-14.8) H Platelet Count 105 K/UL (150-450) L Mean Platelet Volume 6.3 FL (6.5-10.1) L Neutrophils (%) (Auto) 79.1 % (45.0-75.0) H Lymphocytes (%) (Auto) 12.7 % (20.0-45.0) L Monocytes (%) (Auto) 5.9 % (1.0-10.0) Eosinophils (%) (Auto) 1.3 % (0.0-3.0) Basophils (%) (Auto) 1.1 % (0.0-2.0) Sodium Level 154 MMOL/L (136-145) H Potassium Level 4.3 MMOL/L (3.5-5.1) Chloride Level 119 MMOL/L (98-107) H Carbon Dioxide Level 21 MMOL/L (21-32) Anion Gap 14 mmol/L (5-15) Blood Urea Nitrogen 21 mg/dL (7-18) H Creatinine 0.8 MG/DL (0.55-1.30) Estimat Glomerular Filtration Rate mL/min (>60) Glucose Level 94 MG/DL (74-106) Calcium Level 8.1 MG/DL (8.5-10.1) L Phosphorus Level 2.1 MG/DL (2.5-4.9) L Magnesium Level 2.2 MG/DL (1.8-2.4) Total Bilirubin 1.0 MG/DL (0.2-1.0) Aspartate Amino Transf (AST/SGOT) 46 U/L (15-37) H Alanine Aminotransferase (ALT/SGPT) 37 U/L (12-78) Alkaline Phosphatase 447 U/L (46-116) H Total Protein 5.8 G/DL (6.4-8.2) L Albumin 2.1 G/DL (3.4-5.0) L Globulin 3.7 g/dL Albumin/Globulin Ratio 0.6 (1.0-2.7) L Arterial Blood pH 7.434 (7.350-7.450) Arterial Blood Partial Pressure CO2 27.7 mmHg (35.0-45.0) L Arterial Blood Partial Pressure O2 144.6 mmHg (75.0-100.0) H Arterial Blood HCO3 18.1 mmol/L (22.0-26.0) L Arterial Blood Oxygen Saturation 98.3 % (95-100) Arterial Blood Base Excess -5.1 (-2-2) L Remberto Test Positive Objective HEAD AND NECK: No JVD on the vent LUNGS: Coarse rhonchi. CARDIOVASCULAR: Irregular tachy S1 and S2 with no gallop or murmur. Tachycardic. ABDOMEN: Soft. EXTREMITIES: No pitting edema. Shantanu Mcmillan MD Dec 22, 2018 16:13
--- NOTE | 2018-12-22 16:16 | Procedure Note ---
DATE OF PROCEDURE: 12/22/2018 SURGEON: Mike Caruso M.D. PROCEDURE: Upper endoscopy with biopsy. ANESTHESIA: Per Dr. Christensen. INSTRUMENT: Olympus adult flexible upper endoscope. INDICATION: GI bleeding. REASON FOR PROCEDURE: The procedure, risks, benefits, and possible consequences, including hemorrhage, aspiration, perforation and infection, and alternative treatments, were explained to the patient/legal guardian by Dr. Mike Caruos and the patient/legal guardian understood and accepted these risks. DESCRIPTION OF PROCEDURE: After informed consent was obtained and the patient was adequately sedated, the Olympus upper endoscope was advanced from mouth into the second portion of the duodenum and retroflexion was performed in the stomach. The patient has severe gastritis in the body of the stomach. The differential diagnosis would be severe gastritis versus ischemia versus portal hypertensive gastropathy. Biopsy from the body was obtained for evaluation of above differential diagnosis. The rest of the examination grossly looked within normal limits. At this time, the upper endoscope was retrieved and procedure was terminated. SUMMARY OF FINDINGS: Severe gastritis versus portal hypertensive gastropathy versus ischemia, status post biopsy. RECOMMENDATIONS: 1. Continue on PPI twice a day. 2. Add Carafate. 3. Follow up biopsy results and treat accordingly. Mike Caruso M.D. DR: SWATI JOB#: [id number] CC:
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
--- NOTE | 2018-12-22 17:35 | NUR ---
NURSE NOTES: Patient repositioned and provided oral care, patient remains awake and alert to name and situation, remains on restraints for attempting to reach towards ET-tube and OG-tube, remains NPO with D5W at 50ml/hr.
--- NOTE | 2018-12-22 18:19 | NUR ---
CASE MANAGEMENT: REVIEW SI: GI BLEED . A-FIB w/RVR EGD w/BIOPSY 12/22 T 98.2 HR 85 RR 25 BP 167/100 SAT 97% MECH VENT FIO2 40 H/H 9.0/28.4 NA 154 BUN 21 IS: DIGOXIN PO QD METOPROLOL NGT Q12HR ZOSYN IV Q8HR NGT FEEDING GLUCERNA 1.2 @ 60ML/HR NPO ICU STATUS DCP: PATIENT IS FROM HOME
[2018-12-22 19:21] LABS: % IRON SATURATION 33 % (15-50); IRON 68 ug/dL (50-175); TOTAL IRON BINDING CAPACITY 205 ug/dL (250-450)
--- NOTE | 2018-12-22 19:32 | NUR ---
RESPIRATORY NOTE: Received pt on AC 16, 600VT, 40%, PEEP +5. Pt intubated w/ ETT 7.5 @ 22cm lipline, secured by anchorfast. Pt is alert/awake, follows commands. Family present at bedside. Both hands on soft-restraints to prevent pt from self-extubation. B/S [place]. rhonchi/diminished, sxn minimal amounts of thick, [place]-yellow secretions. Vent plugged into red outlet, ambubag at bedside. Pt resting comfortably, in no apparent distress at this time. Will continue to monitor pt.
[2018-12-22 19:34] LABS: FERRITIN 474 NG/ML (8-388)
--- NOTE | 2018-12-22 19:34 | NUR ---
HAND-OFF: Report given to SARAI Garcia.
--- NOTE | 2018-12-22 19:35 | NUR ---
NURSE NOTES: Endorsement received from SARAI Rubi. Patient opens eyes spontaneously. Orally intubated with ET 7.5, 22 lipline. AC 16, 600Vt, PEEP 5, 40%FiO2. With OGT patent and intact. On NPO. Placement rechecked per auscultation. With right forearm g 20 and right forearm g 20. Ongoing D5W 50ml/hr. SCDs in place. Bilateral soft wrist restraints. Head of bed elevated. Bed locked and in low position. Bed alarm on.
--- NOTE | 2018-12-22 21:00 | NUR ---
NURSE NOTES: Afib on the monitor. HR 70s. Due medications given.
--- NOTE | 2018-12-22 23:00 | NUR ---
NURSE NOTES: Patient asleep at this time. Still controlled afib on the monitor
[2018-12-23] VITALS (24 sets, daily range): BP systolic 105–181; BP diastolic 44–95
--- NOTE | 2018-12-23 01:00 | NUR ---
NURSE NOTES: No signs of pain or discomfort.
--- NOTE | 2018-12-23 03:00 | NUR ---
NURSE NOTES: Repositioned. Secretions suctioned
--- NOTE | 2018-12-23 04:24 | NUR ---
NURSE NOTES: Oral care, bed bath, change of linens done.
[2018-12-23 05:50] LABS: HEMATOCRIT 25.9 % (42.0-52.0); HEMOGLOBIN 8.3 G/DL (14.2-18.0); MEAN CORPUSCULAR VOLUME 91 FL (80-99); PLATELET COUNT 86 K/UL (150-450); RED BLOOD COUNT 2.86 M/UL (4.70-6.10); RED CELL DISTRIBUTION WIDTH 17.3 % (11.6-14.8); WHITE BLOOD COUNT 4.8 K/UL (4.8-10.8)
[2018-12-23 06:16] LABS: ALANINE AMINOTRANSFERASE 29 U/L (12-78); ALBUMIN 1.8 G/DL (3.4-5.0); ALBUMIN/GLOBULIN RATIO 0.5 (1.0-2.7); ALKALINE PHOSPHATASE 350 U/L (46-116); ANION GAP 10 mmol/L (5-15); ASPARTATE AMINO TRANSFERASE 24 U/L (15-37); BILIRUBIN,TOTAL 0.8 MG/DL (0.2-1.0); BLOOD UREA NITROGEN 17 mg/dL (7-18); CALCIUM 7.8 MG/DL (8.5-10.1); CARBON DIOXIDE 22 MMOL/L (21-32); CHLORIDE 117 MMOL/L (98-107); CREATININE 0.9 MG/DL (0.55-1.30); PHOSPHORUS 2.2 MG/DL (2.5-4.9); POTASSIUM 3.3 MMOL/L (3.5-5.1); SODIUM 149 MMOL/L (136-145)
--- NOTE | 2018-12-23 07:04 | NUR ---
HAND-OFF: Report given to SARAI Joel.
--- NOTE | 2018-12-23 07:31 | NUR ---
RESPIRATORY NOTE: Received patient orally intubated with ETT 7.5 at 22cm lipline on current AC vent settings: RR 16, Vt 600, Fio2 40%, PEEP +5. Pt fara. current vent settings well. ETT secure with Achor fast. Vent plugged into red outlet. Pt sx inline with small yellow/blood tinge secretions. Pt has bilateral rhonchi breath sounds. Alarms are on, audible, and functioning. Ambu at bedside.
--- NOTE | 2018-12-23 07:58 | NUR ---
NURSE NOTES: md cobb here to see pt.
--- NOTE | 2018-12-23 09:37 | Diagnostic Imaging Report ---
Indication: Dyspnea Technique: One view of the chest Comparison: 12/22/2018 Findings: Stable satisfactory positions of endotracheal and nasogastric tubes. Bilateral diffuse interstitial and airspace disease persists, unchanged. Impression: Unchanged, over one day, findings as above.
--- NOTE | 2018-12-23 10:00 | NUR ---
NURSE NOTES: pt started weaning placed on cpap ps 8, r.t will take abg at 1100. pt tolerating well.
[2018-12-23] MEDS: Pantoprazole Inj IV SCH (10:20)
[2018-12-23] MEDS ORDERED: Potassium Chloride 40 MEQ in Sodium Chloride 550 ML IVPB ONE (10:30)
--- NOTE | 2018-12-23 10:30 | NUR ---
NURSE NOTES: md massey here to see pt. will place own order for extubation.
--- NOTE | 2018-12-23 10:39 | Pulmonolgy Critical Care Note ---
Critical Care - Asmt/Plan Problems: (1) Acute respiratory failure (2) Multilobar lung infiltrate (3) Severe anemia (4) ATN (acute tubular necrosis) (5) Atrial fibrillation with rapid ventricular response Respiratory: monitor respiratory rate, adjust FIO2, weaning trial Cardiac: continue to monitor HR/BP Renal: F/U I&O, check electrolytes Gastrointestinal: continue feedings/current rate, hold feedings Endocrine: monitor blood sugar, check HgA1C Hematologic: transfuse if hgb<8.5 Neurologic: keep patient comfortable Prophylaxis: Protonix, Heparin Notes Reviewed: cardio, renal Discussed with: nurses, consultants, watch caserproperty manager - Objective Last 24 Hour Vital Signs Date Time Temp Pulse Resp B/P (MAP) Pulse Ox O2 Delivery O2 Flow Rate FiO2 12/23/18 10:21 78 12/23/18 10:20 76 150/77 12/23/18 08:55 93 16 40 12/23/18 07:31 89 17 40 12/23/18 07:00 78 17 105/44 (64) 98 12/23/18 06:00 66 17 144/78 (100) 98 12/23/18 05:22 65 17 40 12/23/18 05:00 73 17 124/75 (91) 100 12/23/18 04:00 98.0 72 17 148/81 (103) 100 12/23/18 04:00 77 12/23/18 04:00 Mechanical Ventilator 12/23/18 04:00 40 12/23/18 03:02 72 17 40 12/23/18 03:00 72 17 157/76 (103) 100 12/23/18 02:00 69 17 131/76 (94) 98 12/23/18 01:12 69 19 40 12/23/18 01:00 76 17 137/76 (96) 100 12/23/18 00:00 Mechanical Ventilator 12/23/18 00:00 97.9 76 17 147/72 (97) 100 12/23/18 00:00 76 12/23/18 00:00 40 12/22/18 23:02 69 17 40 12/22/18 23:00 65 17 123/62 (82) 100 12/22/18 22:00 66 17 137/78 (97) 100 12/22/18 21:32 76 134/64 12/22/18 21:01 70 16 40 12/22/18 21:00 76 17 134/64 (87) 100 12/22/18 20:00 40 12/22/18 20:00 Mechanical Ventilator 12/22/18 20:00 41 12/22/18 20:00 98.0 78 18 143/84 (103) 100 12/22/18 19:30 87 18 40 12/22/18 19:00 84 18 136/76 (96) 100 12/22/18 18:00 97 16 167/100 (122) 100 12/22/18 17:00 77 17 139/73 (95) 100 12/22/18 16:35 80 25 40 12/22/18 16:00 40 12/22/18 16:00 98.2 85 17 137/79 (98) 97 12/22/18 16:00 Mechanical Ventilator 12/22/18 16:00 99 12/22/18 15:00 86 21 139/68 (91) 100 12/22/18 14:41 40 12/22/18 14:37 85 21 40 12/22/18 14:00 91 21 151/81 (104) 98 12/22/18 13:00 93 21 148/74 (98) 95 12/22/18 12:32 78 17 40 12/22/18 12:00 Mechanical Ventilator 12/22/18 12:00 40 12/22/18 12:00 97.6 76 16 136/62 (86) 100 12/22/18 12:00 80 12/22/18 11:00 93 22 157/90 (112) 100 12/22/18 10:56 81 20 40 Status: awake Condition: critical HEENT: atraumatic, normocephalic Neck: full ROM Lungs: clear, rales, rhonchi Heart: HR/BP stable Abdomen: non-tender Extremities: no C/C/E Decubiti: location Critical Care - Subjective ROS Limited/Unobtainable: Yes Condition: critical EKG Rhythm: Sinus Rhythm FI02: 40 Vent Support Breath Rate: 16 Vent Support Mode: AC Vent Tidal Volume: 600 Sputum Amount: Small PEEP: 5.0 PIP: 30 Tube Feeding Amount: 35 I&O: Intake and Output 12/22/18 12/23/18 19:00 07:00 Intake Total 705.0 ml 1050 ml Output Total 895 ml 400 ml Balance -190.0 ml 650 ml IV Total 685.0 ml 1050 ml Other 20 ml Output Urine Total 895 ml 400 ml # Voids 2 # Bowel Movements 2 CXR: improving ET-Tube: 7.5 ET Position: 22 Labs: Laboratory Tests Test 12/23/18 04:30 12/23/18 08:40 White Blood Count 4.8 K/UL (4.8-10.8) Red Blood Count 2.86 M/UL (4.70-6.10) L Hemoglobin 8.3 G/DL (14.2-18.0) L Hematocrit 25.9 % (42.0-52.0) L Mean Corpuscular Volume 91 FL (80-99) Mean Corpuscular Hemoglobin 29.1 PG (27.0-31.0) Mean Corpuscular Hemoglobin Concent 32.0 G/DL (32.0-36.0) Red Cell Distribution Width 17.3 % (11.6-14.8) H Platelet Count 86 K/UL (150-450) L Mean Platelet Volume 6.6 FL (6.5-10.1) Neutrophils (%) (Auto) % (45.0-75.0) Lymphocytes (%) (Auto) % (20.0-45.0) Monocytes (%) (Auto) % (1.0-10.0) Eosinophils (%) (Auto) % (0.0-3.0) Basophils (%) (Auto) % (0.0-2.0) Differential Total Cells Counted 100 Neutrophils % (Manual) 72 % (45-75) Lymphocytes % (Manual) 24 % (20-45) Monocytes % (Manual) 4 % (1-10) Eosinophils % (Manual) 0 % (0-3) Basophils % (Manual) 0 % (0-2) Band Neutrophils 0 % (0-8) Platelet Estimate Decreased L Platelet Morphology Normal Polychromasia 1+ Hypochromasia 1+ Anisocytosis 1+ Sodium Level 149 MMOL/L (136-145) H Potassium Level 3.3 MMOL/L (3.5-5.1) L Chloride Level 117 MMOL/L (98-107) H Carbon Dioxide Level 22 MMOL/L (21-32) Anion Gap 10 mmol/L (5-15) Blood Urea Nitrogen 17 mg/dL (7-18) Creatinine 0.9 MG/DL (0.55-1.30) Estimat Glomerular Filtration Rate mL/min (>60) Glucose Level 100 MG/DL (74-106) Calcium Level 7.8 MG/DL (8.5-10.1) L Phosphorus Level 2.2 MG/DL (2.5-4.9) L Magnesium Level 2.0 MG/DL (1.8-2.4) Total Bilirubin 0.8 MG/DL (0.2-1.0) Aspartate Amino Transf (AST/SGOT) 24 U/L (15-37) Alanine Aminotransferase (ALT/SGPT) 29 U/L (12-78) Alkaline Phosphatase 350 U/L (46-116) H Total Protein 5.7 G/DL (6.4-8.2) L Albumin 1.8 G/DL (3.4-5.0) L Globulin 3.9 g/dL Albumin/Globulin Ratio 0.5 (1.0-2.7) L Arterial Blood pH 7.449 (7.350-7.450) Arterial Blood Partial Pressure CO2 33.1 mmHg (35.0-45.0) L Arterial Blood Partial Pressure O2 176.6 mmHg (75.0-100.0) H Arterial Blood HCO3 22.4 mmol/L (22.0-26.0) Arterial Blood Oxygen Saturation 98.4 % (95-100) Arterial Blood Base Excess -1.1 (-2-2) Remberto Test Positive Bryan Emerson MD Dec 23, 2018 10:39
--- NOTE | 2018-12-23 10:40 | NUR ---
NURSE NOTES: called rtiffanie ortega placed order for extubation. was able to talk with family regarding concerns with when tubing would be removed.
--- NOTE | 2018-12-23 11:08 | NUR ---
RESPIRATORY NOTE: PER MD ORDER EXTUBATED PT. PT PLACED ON 40% FIO2 VENTURI MASK PER PROTOCOL. PT MANUEL. WELL. WILL CONTINUE MONITORING PT.
--- NOTE | 2018-12-23 11:08 | NUR ---
NURSE NOTES: pt extubated, placed on aresol at 40%02 say 97%. pt in no acute distress.
--- NOTE | 2018-12-23 12:39 | GI Progress Note ---
Assessment/Plan Problems: (1) Severe anemia ICD Codes: D64.9 - Anemia, unspecified SNOMED: 076255395 (2) Anemia ICD Codes: D64.9 - Anemia, unspecified SNOMED: 057403483 (3) Elevated LFTs ICD Codes: R94.5 - Abnormal results of liver function studies SNOMED: 606129095, 914617385 (4) Dysphagia ICD Codes: R13.10 - Dysphagia, unspecified SNOMED: 62150788, 843312855 Status: progressing Status Narrative Discussed with Dr. Caruso. Assessment/Plan s/p EGD SUMMARY OF FINDINGS: Severe gastritis versus portal hypertensive gastropathy versus ischemia, status post biopsy. extubated RECOMMENDATIONS: Continue on PPI twice a day. Add Carafate. Follow up biopsy results and treat accordingly. restart feeds prn transfusions follow labs will consider OGT removal tomorrow. The patient was seen and examined at bedside and all new and available data was reviewed in the patients chart. I agree with the above findings, impression and plan. (Patient seen earlier today. Signature stamp does not reflect patient encounter time.). - Mike Caruso MD Subjective Subjective limited Objective Last 24 Hour Vital Signs Date Time Temp Pulse Resp B/P (MAP) Pulse Ox O2 Delivery O2 Flow Rate FiO2 12/23/18 10:21 78 12/23/18 10:20 76 150/77 12/23/18 08:55 93 16 40 12/23/18 08:00 Mechanical Ventilator 12/23/18 08:00 40 12/23/18 07:31 89 17 40 12/23/18 07:00 78 17 105/44 (64) 98 12/23/18 06:00 66 17 144/78 (100) 98 12/23/18 05:22 65 17 40 12/23/18 05:00 73 17 124/75 (91) 100 12/23/18 04:00 98.0 72 17 148/81 (103) 100 12/23/18 04:00 77 12/23/18 04:00 Mechanical Ventilator 12/23/18 04:00 40 12/23/18 03:02 72 17 40 12/23/18 03:00 72 17 157/76 (103) 100 12/23/18 02:00 69 17 131/76 (94) 98 12/23/18 01:12 69 19 40 12/23/18 01:00 76 17 137/76 (96) 100 12/23/18 00:00 Mechanical Ventilator 12/23/18 00:00 97.9 76 17 147/72 (97) 100 12/23/18 00:00 76 12/23/18 00:00 40 12/22/18 23:02 69 17 40 12/22/18 23:00 65 17 123/62 (82) 100 12/22/18 22:00 66 17 137/78 (97) 100 12/22/18 21:32 76 134/64 12/22/18 21:01 70 16 40 12/22/18 21:00 76 17 134/64 (87) 100 12/22/18 20:00 40 12/22/18 20:00 Mechanical Ventilator 12/22/18 20:00 41 12/22/18 20:00 98.0 78 18 143/84 (103) 100 12/22/18 19:30 87 18 40 12/22/18 19:00 84 18 136/76 (96) 100 12/22/18 18:00 97 16 167/100 (122) 100 12/22/18 17:00 77 17 139/73 (95) 100 12/22/18 16:35 80 25 40 12/22/18 16:00 40 12/22/18 16:00 98.2 85 17 137/79 (98) 97 12/22/18 16:00 Mechanical Ventilator 12/22/18 16:00 99 12/22/18 15:00 86 21 139/68 (91) 100 12/22/18 14:41 40 12/22/18 14:37 85 21 40 12/22/18 14:00 91 21 151/81 (104) 98 12/22/18 13:00 93 21 148/74 (98) 95 Intake and Output 12/22/18 12/23/18 19:00 07:00 Intake Total 705.0 ml 1050 ml Output Total 895 ml 400 ml Balance -190.0 ml 650 ml IV Total 685.0 ml 1050 ml Other 20 ml Output Urine Total 895 ml 400 ml # Voids 2 # Bowel Movements 2 Laboratory Tests Test 12/23/18 04:30 12/23/18 08:40 White Blood Count 4.8 K/UL (4.8-10.8) Red Blood Count 2.86 M/UL (4.70-6.10) L Hemoglobin 8.3 G/DL (14.2-18.0) L Hematocrit 25.9 % (42.0-52.0) L Mean Corpuscular Volume 91 FL (80-99) Mean Corpuscular Hemoglobin 29.1 PG (27.0-31.0) Mean Corpuscular Hemoglobin Concent 32.0 G/DL (32.0-36.0) Red Cell Distribution Width 17.3 % (11.6-14.8) H Platelet Count 86 K/UL (150-450) L Mean Platelet Volume 6.6 FL (6.5-10.1) Neutrophils (%) (Auto) % (45.0-75.0) Lymphocytes (%) (Auto) % (20.0-45.0) Monocytes (%) (Auto) % (1.0-10.0) Eosinophils (%) (Auto) % (0.0-3.0) Basophils (%) (Auto) % (0.0-2.0) Differential Total Cells Counted 100 Neutrophils % (Manual) 72 % (45-75) Lymphocytes % (Manual) 24 % (20-45) Monocytes % (Manual) 4 % (1-10) Eosinophils % (Manual) 0 % (0-3) Basophils % (Manual) 0 % (0-2) Band Neutrophils 0 % (0-8) Platelet Estimate Decreased L Platelet Morphology Normal Polychromasia 1+ Hypochromasia 1+ Anisocytosis 1+ Sodium Level 149 MMOL/L (136-145) H Potassium Level 3.3 MMOL/L (3.5-5.1) L Chloride Level 117 MMOL/L (98-107) H Carbon Dioxide Level 22 MMOL/L (21-32) Anion Gap 10 mmol/L (5-15) Blood Urea Nitrogen 17 mg/dL (7-18) Creatinine 0.9 MG/DL (0.55-1.30) Estimat Glomerular Filtration Rate mL/min (>60) Glucose Level 100 MG/DL (74-106) Calcium Level 7.8 MG/DL (8.5-10.1) L Phosphorus Level 2.2 MG/DL (2.5-4.9) L Magnesium Level 2.0 MG/DL (1.8-2.4) Total Bilirubin 0.8 MG/DL (0.2-1.0) Aspartate Amino Transf (AST/SGOT) 24 U/L (15-37) Alanine Aminotransferase (ALT/SGPT) 29 U/L (12-78) Alkaline Phosphatase 350 U/L (46-116) H Total Protein 5.7 G/DL (6.4-8.2) L Albumin 1.8 G/DL (3.4-5.0) L Globulin 3.9 g/dL Albumin/Globulin Ratio 0.5 (1.0-2.7) L Arterial Blood pH 7.449 (7.350-7.450) Arterial Blood Partial Pressure CO2 33.1 mmHg (35.0-45.0) L Arterial Blood Partial Pressure O2 176.6 mmHg (75.0-100.0) H Arterial Blood HCO3 22.4 mmol/L (22.0-26.0) Arterial Blood Oxygen Saturation 98.4 % (95-100) Arterial Blood Base Excess -1.1 (-2-2) Remberto Test Positive Height (Feet): 5 Height (Inches): 6.00 Weight (Pounds): 115 General Appearance: WD/WN, no apparent distress, alert Cardiovascular: normal rate Respiratory/Chest: normal breath sounds, no respiratory distress Abdominal Exam: normal bowel sounds, non tender, soft Extremities: non-tender Elke Jacobson NP Dec 23, 2018 12:39
--- NOTE | 2018-12-23 13:00 | NUR ---
NURSE NOTES: PEDRO Mathis called to check in on pt. ok to start restart feeding same order. will do swallow eval in am.
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
--- NOTE | 2018-12-23 13:23 | NUR ---
MAJOR CASE DETECTIVEASSIGNMENT MANAGER SI: RESP FAILURE ETT/VENT SUPPORT T. 98.8 HR 73 RR 17 B/P 124/74 CPAP 16 TV 600 FIO2 30 PEEP 5 NA 149 K 3.3 CA 7.8 ALK PHOS 360 CXR= NGT IN PLACE IS: NA PHOS IV K-PHOS IV IVF D5 50ML/HR PROTONIX IV ICU STATUS
--- NOTE | 2018-12-23 13:30 | NUR ---
NURSE NOTES: md velasquez here to see pt
--- NOTE | 2018-12-23 14:01 | Surgery Progress Note ---
Surgery Progress Note Subjective Additional Comments improved. comfortable. still in ICU Objective Last 24 Hour Vital Signs Date Time Temp Pulse Resp B/P (MAP) Pulse Ox O2 Delivery O2 Flow Rate FiO2 12/23/18 12:00 Simple Mask 15.0 12/23/18 12:00 72 12/23/18 10:21 78 12/23/18 10:20 76 150/77 12/23/18 08:55 93 16 40 12/23/18 08:00 Mechanical Ventilator 12/23/18 08:00 40 12/23/18 08:00 71 12/23/18 07:31 89 17 40 12/23/18 07:00 78 17 105/44 (64) 98 12/23/18 06:00 66 17 144/78 (100) 98 12/23/18 05:22 65 17 40 12/23/18 05:00 73 17 124/75 (91) 100 12/23/18 04:00 98.0 72 17 148/81 (103) 100 12/23/18 04:00 77 12/23/18 04:00 Mechanical Ventilator 12/23/18 04:00 40 12/23/18 03:02 72 17 40 12/23/18 03:00 72 17 157/76 (103) 100 12/23/18 02:00 69 17 131/76 (94) 98 12/23/18 01:12 69 19 40 12/23/18 01:00 76 17 137/76 (96) 100 12/23/18 00:00 Mechanical Ventilator 12/23/18 00:00 97.9 76 17 147/72 (97) 100 12/23/18 00:00 76 12/23/18 00:00 40 12/22/18 23:02 69 17 40 12/22/18 23:00 65 17 123/62 (82) 100 12/22/18 22:00 66 17 137/78 (97) 100 12/22/18 21:32 76 134/64 12/22/18 21:01 70 16 40 12/22/18 21:00 76 17 134/64 (87) 100 12/22/18 20:00 40 12/22/18 20:00 Mechanical Ventilator 12/22/18 20:00 41 12/22/18 20:00 98.0 78 18 143/84 (103) 100 3/6/19 19:30 87 18 40 12/22/18 19:00 84 18 136/76 (96) 100 12/22/18 18:00 97 16 167/100 (122) 100 12/22/18 17:00 77 17 139/73 (95) 100 12/22/18 16:35 80 25 40 12/22/18 16:00 40 12/22/18 16:00 98.2 85 17 137/79 (98) 97 12/22/18 16:00 Mechanical Ventilator 12/22/18 16:00 99 12/22/18 15:00 86 21 139/68 (91) 100 12/22/18 14:41 40 12/22/18 14:37 85 21 40 I&O Intake and Output 12/22/18 12/23/18 19:00 07:00 Intake Total 705.0 ml 1050 ml Output Total 895 ml 400 ml Balance -190.0 ml 650 ml IV Total 685.0 ml 1050 ml Other 20 ml Output Urine Total 895 ml 400 ml # Voids 2 # Bowel Movements 2 Dressing: other Wound: other Drains: other Cardiovascular: RSR Respiratory: clear Abdomen: soft, non-tender, present bowel sounds, non-distended Extremities: no cyanosis Laboratory Tests Test 12/23/18 04:30 12/23/18 08:40 White Blood Count 4.8 K/UL (4.8-10.8) Red Blood Count 2.86 M/UL (4.70-6.10) L Hemoglobin 8.3 G/DL (14.2-18.0) L Hematocrit 25.9 % (42.0-52.0) L Mean Corpuscular Volume 91 FL (80-99) Mean Corpuscular Hemoglobin 29.1 PG (27.0-31.0) Mean Corpuscular Hemoglobin Concent 32.0 G/DL (32.0-36.0) Red Cell Distribution Width 17.3 % (11.6-14.8) H Platelet Count 86 K/UL (150-450) L Mean Platelet Volume 6.6 FL (6.5-10.1) Neutrophils (%) (Auto) % (45.0-75.0) Lymphocytes (%) (Auto) % (20.0-45.0) Monocytes (%) (Auto) % (1.0-10.0) Eosinophils (%) (Auto) % (0.0-3.0) Basophils (%) (Auto) % (0.0-2.0) Differential Total Cells Counted 100 Neutrophils % (Manual) 72 % (45-75) Lymphocytes % (Manual) 24 % (20-45) Monocytes % (Manual) 4 % (1-10) Eosinophils % (Manual) 0 % (0-3) Basophils % (Manual) 0 % (0-2) Band Neutrophils 0 % (0-8) Platelet Estimate Decreased L Platelet Morphology Normal Polychromasia 1+ Hypochromasia 1+ Anisocytosis 1+ Sodium Level 149 MMOL/L (136-145) H Potassium Level 3.3 MMOL/L (3.5-5.1) L Chloride Level 117 MMOL/L (98-107) H Carbon Dioxide Level 22 MMOL/L (21-32) Anion Gap 10 mmol/L (5-15) Blood Urea Nitrogen 17 mg/dL (7-18) Creatinine 0.9 MG/DL (0.55-1.30) Estimat Glomerular Filtration Rate mL/min (>60) Glucose Level 100 MG/DL (74-106) Calcium Level 7.8 MG/DL (8.5-10.1) L Phosphorus Level 2.2 MG/DL (2.5-4.9) L Magnesium Level 2.0 MG/DL (1.8-2.4) Total Bilirubin 0.8 MG/DL (0.2-1.0) Aspartate Amino Transf (AST/SGOT) 24 U/L (15-37) Alanine Aminotransferase (ALT/SGPT) 29 U/L (12-78) Alkaline Phosphatase 350 U/L (46-116) H Total Protein 5.7 G/DL (6.4-8.2) L Albumin 1.8 G/DL (3.4-5.0) L Globulin 3.9 g/dL Albumin/Globulin Ratio 0.5 (1.0-2.7) L Arterial Blood pH 7.449 (7.350-7.450) Arterial Blood Partial Pressure CO2 33.1 mmHg (35.0-45.0) L Arterial Blood Partial Pressure O2 176.6 mmHg (75.0-100.0) H Arterial Blood HCO3 22.4 mmol/L (22.0-26.0) Arterial Blood Oxygen Saturation 98.4 % (95-100) Arterial Blood Base Excess -1.1 (-2-2) Remberto Test Positive Plan Problems: (1) Inguinal hernia Assessment & Plan: 78 year old male with massive inguinal hernia with bowel contents. CT with Massive indirect right inguinal hernia, containing the proximal colon and much if not most of the small bowel. No definite evidence of obstruction or strangulation Anasarca, with diffuse extensive bilateral pulmonary edema, bilateral pleural effusions, small amount of free intraperitoneal fluid, and extensive edema of the subcutaneous and mediastinal fat Colonic diverticulosis Diffuse skeletal osteosclerosis Distended bladder Prostatomegaly Large bilateral renal cysts. Calcification in the periventricular right kidney likely represent old involuted calcified cyst Nasogastric tube Incidental finding right lobe liver cyst On exam large inguinal hernia with bowel contents in scrotum not reducible but no signs of obstruction / strangulation. in reviewing CT likely loss of domain given patients body habitus compared to hernia size. patient awake but intubated on vent support. no tenderness but does have discomfort with manipulation. given above no acute surgical intervention planned as this is likely chronic and with loss of domain. unlikely to be incarcerated but will need to keep an eye on it as bowel can obstruction will follow with exams thank you Yordy Tucker Dec 23, 2018 14:01
--- NOTE | 2018-12-23 14:03 | General Progress Note ---
Assessment/Plan Problem List: (1) Respiratory failure with hypoxia ICD Codes: J96.91 - Respiratory failure, unspecified with hypoxia SNOMED: 83651248272046130 Qualifiers: Qualified Codes: J96.01 - Acute respiratory failure with hypoxia (2) Atrial fibrillation with rapid ventricular response ICD Codes: I48.91 - Unspecified atrial fibrillation SNOMED: 749067912899885, 181067418 (3) Severe anemia ICD Codes: D64.9 - Anemia, unspecified SNOMED: 910705047 (4) ATN (acute tubular necrosis) ICD Codes: N17.0 - Acute kidney failure with tubular necrosis SNOMED: 55120897 (5) DM (diabetes mellitus) ICD Codes: E11.9 - Type 2 diabetes mellitus without complications SNOMED: 91532813 Status: progressing Assessment/Plan vent transfuse prn cardio heme eval f/u cbc bmp am Subjective Constitutional: Reports: weakness Allergies: Coded Allergies: No Known Allergies (Unverified , 12/15/18) All Systems: reviewed and negative except above Subjective extubated in icu o2 mask Objective Last 24 Hour Vital Signs Date Time Temp Pulse Resp B/P (MAP) Pulse Ox O2 Delivery O2 Flow Rate FiO2 12/23/18 12:00 Simple Mask 15.0 12/23/18 12:00 72 12/23/18 10:21 78 12/23/18 10:20 76 150/77 12/23/18 08:55 93 16 40 12/23/18 08:00 Mechanical Ventilator 12/23/18 08:00 40 12/23/18 08:00 71 12/23/18 07:31 89 17 40 12/23/18 07:00 78 17 105/44 (64) 98 12/23/18 06:00 66 17 144/78 (100) 98 12/23/18 05:22 65 17 40 12/23/18 05:00 73 17 124/75 (91) 100 12/23/18 04:00 98.0 72 17 148/81 (103) 100 12/23/18 04:00 77 12/23/18 04:00 Mechanical Ventilator 12/23/18 04:00 40 12/23/18 03:02 72 17 40 12/23/18 03:00 72 17 157/76 (103) 100 12/23/18 02:00 69 17 131/76 (94) 98 12/23/18 01:12 69 19 40 12/23/18 01:00 76 17 137/76 (96) 100 12/23/18 00:00 Mechanical Ventilator 12/23/18 00:00 97.9 76 17 147/72 (97) 100 12/23/18 00:00 76 12/23/18 00:00 40 12/22/18 23:02 69 17 40 12/22/18 23:00 65 17 123/62 (82) 100 12/22/18 22:00 66 17 137/78 (97) 100 12/22/18 21:32 76 134/64 12/22/18 21:01 70 16 40 12/22/18 21:00 76 17 134/64 (87) 100 12/22/18 20:00 40 12/22/18 20:00 Mechanical Ventilator 12/22/18 20:00 41 12/22/18 20:00 98.0 78 18 143/84 (103) 100 12/22/18 19:30 87 18 40 12/22/18 19:00 84 18 136/76 (96) 100 12/22/18 18:00 97 16 167/100 (122) 100 12/22/18 17:00 77 17 139/73 (95) 100 12/22/18 16:35 80 25 40 12/22/18 16:00 40 12/22/18 16:00 98.2 85 17 137/79 (98) 97 12/22/18 16:00 Mechanical Ventilator 12/22/18 16:00 99 12/22/18 15:00 86 21 139/68 (91) 100 12/22/18 14:41 40 12/22/18 14:37 85 21 40 Intake and Output 12/22/18 12/23/18 19:00 07:00 Intake Total 705.0 ml 1050 ml Output Total 895 ml 400 ml Balance -190.0 ml 650 ml IV Total 685.0 ml 1050 ml Other 20 ml Output Urine Total 895 ml 400 ml # Voids 2 # Bowel Movements 2 Laboratory Tests 12/23/18 04:30: White Blood Count 4.8, Red Blood Count 2.86L, Hemoglobin 8.3L, Hematocrit 25.9L , Mean Corpuscular Volume 91, Mean Corpuscular Hemoglobin 29.1, Mean Corpuscular Hemoglobin Concent 32.0, Red Cell Distribution Width 17.3H, Platelet Count 86L, Mean Platelet Volume 6.6, Neutrophils (%) (Auto) , Lymphocytes (%) (Auto) , Monocytes (%) (Auto) , Eosinophils (%) (Auto) , Basophils (%) (Auto) , Differential Total Cells Counted 100, Neutrophils % ( Manual) 72, Lymphocytes % (Manual) 24, Monocytes % (Manual) 4, Eosinophils % ( Manual) 0, Basophils % (Manual) 0, Band Neutrophils 0, Platelet Estimate DecreasedL, Platelet Morphology Normal, Polychromasia 1+, Hypochromasia 1+, Anisocytosis 1+, Sodium Level 149H, Potassium Level 3.3L, Chloride Level 117H, Carbon Dioxide Level 22, Anion Gap 10, Blood Urea Nitrogen 17, Creatinine 0.9, Estimat Glomerular Filtration Rate , Glucose Level 100, Calcium Level 7.8L, Phosphorus Level 2.2L, Magnesium Level 2.0, Total Bilirubin 0.8, Aspartate Amino Transf (AST/SGOT) 24, Alanine Aminotransferase (ALT/SGPT) 29, Alkaline Phosphatase 350H, Total Protein 5.7L, Albumin 1.8L, Globulin 3.9, Albumin/ Globulin Ratio 0.5L 12/23/18 08:40: Arterial Blood pH 7.449, Arterial Blood Partial Pressure CO2 33.1L, Arterial Blood Partial Pressure O2 176.6H, Arterial Blood HCO3 22.4, Arterial Blood Oxygen Saturation 98.4, Arterial Blood Base Excess -1.1, Remberto Test Positive Height (Feet): 5 Height (Inches): 6.00 Weight (Pounds): 115 General Appearance: lethargic EENT: normal ENT inspection Neck: normal alignment Cardiovascular: normal peripheral pulses, normal rate, regular rhythm Respiratory/Chest: chest wall non-tender, lungs clear, normal breath sounds Abdomen: normal bowel sounds, non tender, soft Extremities: normal inspection Edema: no edema noted Arm (L), no edema noted Arm (R), no edema noted Leg (L), no edema noted Leg (R), no edema noted Pedal (L), no edema noted Pedal (R), no edema noted Generalized Neurologic: motor weakness Skin: normal pigmentation, warm/dry Landry Green DO Dec 23, 2018 14:03
[2018-12-23] MEDS ORDERED: Sodium Phosphate 30 MM in NS 275 ML IV ONE (16:00)
--- NOTE | 2018-12-23 16:34 | NUR ---
NURSE NOTES: md santana here to see pt
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
--- NOTE | 2018-12-23 18:15 | Cardiac Electrophysiology PN ---
Assessment/Plan Assessment/Plan 1. Atrial fibrillation with rapid ventricular response. This could have been precipitated due to the patient's profound anemia with hemoglobin of 3.5. Echocardiogram showed ejection fraction of 45% with moderate to severe pulmonary hypertension. On Lopressor 100 bid and Dig 0.25 daily Off anticoagulations for gastrointestinal bleed and hemoglobin 3.5. 2. Troponin leak due to atrial fib with RVR 3. Hypertension. Continue Metoprolol . 4. Profound anemia, hemoglobin of 3.5. The patient was evaluated by Dr. Caruso and Berkley. EGD in am by Dr Caruso 5. Respiratory failure, extubated per Dr. Emerson. 6 . Mild azotemia, BUN of 20, creatinine 1.0. DW RN Subjective Subjective In ICU on Lopressor 100 bid and Digoxin 0.25 daily. RN at bedside. In atrial fib with controlled rate. Extubated on Fce Mask Objective Last 24 Hour Vital Signs Date Time Temp Pulse Resp B/P (MAP) Pulse Ox O2 Delivery O2 Flow Rate FiO2 12/23/18 16:00 40.0 12/23/18 16:00 69 12/23/18 16:00 98.6 80 22 176/90 (118) 100 12/23/18 16:00 Simple Mask 8.0 12/23/18 15:00 83 22 181/95 (123) 100 12/23/18 14:00 77 21 130/73 (92) 100 12/23/18 13:00 78 17 110/44 (66) 98 12/23/18 12:00 98.8 70 19 105/44 (64) 100 12/23/18 12:00 Simple Mask 15.0 12/23/18 12:00 72 12/23/18 12:00 40.0 12/23/18 11:08 Venturi Mask 40 12/23/18 11:08 95 Venturi Mask 40 12/23/18 11:08 Venturi Mask 40 12/23/18 11:00 68 20 133/65 (87) 97 12/23/18 10:21 78 12/23/18 10:20 76 150/77 12/23/18 10:00 78 21 150/77 (101) 98 12/23/18 09:55 78 12/23/18 09:55 40 12/23/18 09:00 80 17 147/83 (104) 95 12/23/18 08:55 93 16 40 12/23/18 08:00 Mechanical Ventilator 12/23/18 08:00 98.4 80 16 148/91 (110) 80 12/23/18 08:00 40 12/23/18 08:00 71 12/23/18 07:31 89 17 40 12/23/18 07:00 78 17 105/44 (64) 98 12/23/18 06:00 66 17 144/78 (100) 98 12/23/18 05:22 65 17 40 12/23/18 05:00 73 17 124/75 (91) 100 12/23/18 04:00 98.0 72 17 148/81 (103) 100 12/23/18 04:00 77 12/23/18 04:00 Mechanical Ventilator 12/23/18 04:00 40 12/23/18 03:02 72 17 40 12/23/18 03:00 72 17 157/76 (103) 100 12/23/18 02:00 69 17 131/76 (94) 98 12/23/18 01:12 69 19 40 12/23/18 01:00 76 17 137/76 (96) 100 12/23/18 00:00 Mechanical Ventilator 12/23/18 00:00 97.9 76 17 147/72 (97) 100 12/23/18 00:00 76 12/23/18 00:00 40 12/22/18 23:02 69 17 40 12/22/18 23:00 65 17 123/62 (82) 100 12/22/18 22:00 66 17 137/78 (97) 100 12/22/18 21:32 76 134/64 12/22/18 21:01 70 16 40 12/22/18 21:00 76 17 134/64 (87) 100 12/22/18 20:00 40 12/22/18 20:00 Mechanical Ventilator 12/22/18 20:00 41 12/22/18 20:00 98.0 78 18 143/84 (103) 100 12/22/18 19:30 87 18 40 12/22/18 19:00 84 18 136/76 (96) 100 Intake and Output 12/22/18 12/23/18 19:00 07:00 Intake Total 705.0 ml 1050 ml Output Total 895 ml 400 ml Balance -190.0 ml 650 ml IV Total 685.0 ml 1050 ml Other 20 ml Output Urine Total 895 ml 400 ml # Voids 2 # Bowel Movements 2 Laboratory Tests Test 12/23/18 04:30 12/23/18 08:40 White Blood Count 4.8 K/UL (4.8-10.8) Red Blood Count 2.86 M/UL (4.70-6.10) L Hemoglobin 8.3 G/DL (14.2-18.0) L Hematocrit 25.9 % (42.0-52.0) L Mean Corpuscular Volume 91 FL (80-99) Mean Corpuscular Hemoglobin 29.1 PG (27.0-31.0) Mean Corpuscular Hemoglobin Concent 32.0 G/DL (32.0-36.0) Red Cell Distribution Width 17.3 % (11.6-14.8) H Platelet Count 86 K/UL (150-450) L Mean Platelet Volume 6.6 FL (6.5-10.1) Neutrophils (%) (Auto) % (45.0-75.0) Lymphocytes (%) (Auto) % (20.0-45.0) Monocytes (%) (Auto) % (1.0-10.0) Eosinophils (%) (Auto) % (0.0-3.0) Basophils (%) (Auto) % (0.0-2.0) Differential Total Cells Counted 100 Neutrophils % (Manual) 72 % (45-75) Lymphocytes % (Manual) 24 % (20-45) Monocytes % (Manual) 4 % (1-10) Eosinophils % (Manual) 0 % (0-3) Basophils % (Manual) 0 % (0-2) Band Neutrophils 0 % (0-8) Platelet Estimate Decreased L Platelet Morphology Normal Polychromasia 1+ Hypochromasia 1+ Anisocytosis 1+ Sodium Level 149 MMOL/L (136-145) H Potassium Level 3.3 MMOL/L (3.5-5.1) L Chloride Level 117 MMOL/L (98-107) H Carbon Dioxide Level 22 MMOL/L (21-32) Anion Gap 10 mmol/L (5-15) Blood Urea Nitrogen 17 mg/dL (7-18) Creatinine 0.9 MG/DL (0.55-1.30) Estimat Glomerular Filtration Rate mL/min (>60) Glucose Level 100 MG/DL (74-106) Calcium Level 7.8 MG/DL (8.5-10.1) L Phosphorus Level 2.2 MG/DL (2.5-4.9) L Magnesium Level 2.0 MG/DL (1.8-2.4) Total Bilirubin 0.8 MG/DL (0.2-1.0) Aspartate Amino Transf (AST/SGOT) 24 U/L (15-37) Alanine Aminotransferase (ALT/SGPT) 29 U/L (12-78) Alkaline Phosphatase 350 U/L (46-116) H Total Protein 5.7 G/DL (6.4-8.2) L Albumin 1.8 G/DL (3.4-5.0) L Globulin 3.9 g/dL Albumin/Globulin Ratio 0.5 (1.0-2.7) L Arterial Blood pH 7.449 (7.350-7.450) Arterial Blood Partial Pressure CO2 33.1 mmHg (35.0-45.0) L Arterial Blood Partial Pressure O2 176.6 mmHg (75.0-100.0) H Arterial Blood HCO3 22.4 mmol/L (22.0-26.0) Arterial Blood Oxygen Saturation 98.4 % (95-100) Arterial Blood Base Excess -1.1 (-2-2) Remberto Test Positive Objective HEAD AND NECK: No JVD Face Mask on LUNGS: Coarse rhonchi. CARDIOVASCULAR: Irregular tachy S1 and S2 with no gallop or murmur. Tachycardic. ABDOMEN: Soft. EXTREMITIES: No pitting edema. Shantanu Mcmillan MD Dec 23, 2018 18:15
--- NOTE | 2018-12-23 19:30 | NUR ---
NURSE NOTES: Received report from SARAI Devries. Patient 's AO x4, opens eyes spontaneously.Extubated earlier this morning, now on venturi mask 40%FiO2. With OGT running Glucerna 1.2 at 40ml/hr, goal 60ml/hr. Placement rechecked per auscultation, no residual noted. With right forearm 20G and janina hand 20G. Ongoing D5W 50ml/hr. SCDs in place. Head of bed elevated. Bed locked and in low position. Bed alarm on. Will continue to monitor.
--- NOTE | 2018-12-23 22:00 | NUR ---
NURSE NOTES: Pt's resting in bed, AOx4, VS stable. Denies any other concerns/complaints at this time. Will continue to monitor.
--- NOTE | 2018-12-23 23:00 | NUR ---
NURSE NOTES: Noted pt's OGT came off, per pt stated accidentally coughed the OGT out. Pt refused to re-insert OGT. As pt will have swallow eval in AM, also currently on D5W, will continue to monitor.
[2018-12-24] VITALS (25 sets, daily range): BP systolic 130–177; BP diastolic 63–111
--- NOTE | 2018-12-24 01:00 | NUR ---
NURSE NOTES: Pt's resting in bed asleep, with eyes closed. VS stable. Will continue to monitor.
--- NOTE | 2018-12-24 03:00 | NUR ---
NURSE NOTES: Pt's resting in bed asleep, with eyes closed. VS stable. Will continue to monitor
--- NOTE | 2018-12-24 05:00 | NUR ---
NURSE NOTES: Pt's resting in bed, in no acute distress. VS stable. Will continue to monitor.
[2018-12-24 05:36] LABS: HEMOGLOBIN 8.7 G/DL (14.2-18.0); MEAN CORPUSCULAR VOLUME 90 FL (80-99); PLATELET COUNT 89 K/UL (150-450); RED CELL DISTRIBUTION WIDTH 16.3 % (11.6-14.8); WHITE BLOOD COUNT 7.1 K/UL (4.8-10.8)
--- NOTE | 2018-12-24 06:00 | NUR ---
NURSE NOTES: Pt's currently on NC 3L, satting 98%, in no acute distress. VS stable. Will continue to monitor.
[2018-12-24 06:19] LABS: ALANINE AMINOTRANSFERASE 28 U/L (12-78); ALBUMIN/GLOBULIN RATIO 0.5 (1.0-2.7); ALKALINE PHOSPHATASE 389 U/L (46-116); ANION GAP 10 mmol/L (5-15); ASPARTATE AMINO TRANSFERASE 26 U/L (15-37); BILIRUBIN,TOTAL 0.7 MG/DL (0.2-1.0); BLOOD UREA NITROGEN 16 mg/dL (7-18); CALCIUM 7.8 MG/DL (8.5-10.1); CARBON DIOXIDE 24 MMOL/L (21-32); CHLORIDE 111 MMOL/L (98-107); CREATININE 0.9 MG/DL (0.55-1.30); PHOSPHORUS 2.6 MG/DL (2.5-4.9); POTASSIUM 3.4 MMOL/L (3.5-5.1); SODIUM 145 MMOL/L (136-145)
--- NOTE | 2018-12-24 07:30 | NUR ---
HAND-OFF: Report given to SARAI Watkins.
--- NOTE | 2018-12-24 07:36 | NUR ---
NURSE NOTES: Received patient from SARAI Blair. Patient VS stable at this time with no sign of acute distress. patient denies pain or discomfort at this time. Patient showing SR on the monitor. Patient on 3L NC at this time. Patient extubated yesterday at 1115. Patient's OGT was removed accidentally from patient coughing last night. Patient has had 2 loose stools over night. Will monitor. Patient has a urine pouch at this time that is patent and draining. Patient has a hernia that descends to the scrotum. Patient has a right forearm 20G PIV that is patent and asymptomatic at this time. Patient has a left hand 20G PIV that is patent, asymptomatic, and running D5W at 50mL/hr. Patient has a potassium level of 3.4 this morning and a magnesium of 1.7 this morning[address] Will notify Dr Emerson and ask if he wants to order coverage at this time. Patient bed in low position with bed alarm on and call light in reach at this time.
--- NOTE | 2018-12-24 07:59 | NUR ---
NURSE NOTES: Left message for Dr Emerson regarding patient's potassium of 3.4 and magnesium of 1.7 this morning. Awaiting orders.
--- NOTE | 2018-12-24 08:28 | NUR ---
NURSE NOTES: Dr Emerson called back and ordered 40mEq KCl PO once and 2g Mg sulfate IV one.
[2018-12-24] MEDS: Pantoprazole Inj IV SCH (08:41)
--- NOTE | 2018-12-24 08:53 | Pulmonolgy Critical Care Note ---
Critical Care - Asmt/Plan Problems: (1) Acute respiratory failure (2) Multilobar lung infiltrate (3) Severe anemia (4) ATN (acute tubular necrosis) (5) Atrial fibrillation with rapid ventricular response Respiratory: monitor respiratory rate, adjust FIO2, CXR Cardiac: continue pressors, continue to monitor HR/BP Renal: F/U I&O, keep IV fluid Infectious Disease: check cultures Gastrointestinal: continue feedings/current rate Endocrine: monitor blood sugar, check HgA1C, continue sliding scale insulin Hematologic: transfuse if hgb<8.5 Neurologic: PRN Ativan, PRN Morphine, keep patient comfortable Time Spent (Minutes): 40 Notes Reviewed: jack tamp operator Discussed with: nurses, consultants, pillowcase sewerbody corporate manager - Objective Last 24 Hour Vital Signs Date Time Temp Pulse Resp B/P (MAP) Pulse Ox O2 Delivery O2 Flow Rate FiO2 12/24/18 08:41 82 12/24/18 08:41 85 161/63 12/24/18 08:00 3.0 12/24/18 08:00 98.6 86 23 161/63 (95) 100 12/24/18 07:56 Nasal Cannula 3.0 Nasal Cannula 3.0 12/24/18 07:00 98.6 89 24 157/80 (105) 97 12/24/18 06:00 97 28 158/81 (106) 99 12/24/18 05:00 76 19 170/111 (130) 100 12/24/18 04:00 98.5 84 26 165/85 (111) 99 12/24/18 04:00 Venturi Mask 6.0 Venturi Mask 12/24/18 04:00 30 12/24/18 04:00 85 12/24/18 03:00 89 26 175/87 (116) 99 12/24/18 02:00 83 25 167/83 (111) 96 12/24/18 01:00 84 26 177/81 (113) 94 12/24/18 00:00 30 12/24/18 00:00 Venturi Mask 6.0 Venturi Mask 12/24/18 00:00 81 23 158/82 (107) 98 12/24/18 00:00 83 12/23/18 23:00 84 26 160/83 (108) 96 12/23/18 22:00 85 27 168/85 (112) 95 12/23/18 21:00 82 24 170/95 (120) 97 12/23/18 20:41 85 149/95 12/23/18 20:06 Venturi Mask 8.0 30 12/23/18 20:05 100 Venturi Mask 8.0 30 12/23/18 20:00 40 12/23/18 20:00 98.2 89 22 149/70 (96) 99 12/23/18 20:00 88 12/23/18 20:00 Venturi Mask 6.0 Venturi Mask 12/23/18 19:00 86 23 149/95 (113) 98 12/23/18 18:00 80 20 150/83 (105) 100 12/23/18 17:00 74 17 150/73 (98) 97 12/23/18 16:00 40.0 12/23/18 16:00 69 12/23/18 16:00 98.6 80 22 176/90 (118) 100 12/23/18 16:00 Simple Mask 8.0 12/23/18 15:00 83 22 181/95 (123) 100 12/23/18 14:00 77 21 130/73 (92) 100 12/23/18 13:00 78 17 110/44 (66) 98 12/23/18 12:00 98.8 70 19 105/44 (64) 100 12/23/18 12:00 Simple Mask 15.0 12/23/18 12:00 72 12/23/18 12:00 40.0 12/23/18 11:08 Venturi Mask 40 12/23/18 11:08 95 Venturi Mask 40 12/23/18 11:08 Venturi Mask 40 12/23/18 11:00 68 20 133/65 (87) 97 12/23/18 10:21 78 12/23/18 10:20 76 150/77 12/23/18 10:00 78 21 150/77 (101) 98 12/23/18 09:55 78 12/23/18 09:55 40 12/23/18 09:00 80 17 147/83 (104) 95 12/23/18 08:55 93 16 40 Status: awake Condition: critical Neck: full ROM Lungs: rales, rhonchi Heart: HR/BP stable Abdomen: soft, non-tender Extremities: no C/C/E, edema Critical Care - Subjective ROS Limited/Unobtainable: Yes ICU Day: 9 Interval Events: tolerating extubation FI02: 30 Vent Support Breath Rate: 16 Vent Support Mode: CPAP Vent Tidal Volume: 600 Sputum Amount: None PEEP: 5.0 PIP: 30 Tube Feeding Amount: 40 I&O: Intake and Output 12/23/18 12/24/18 19:00 07:00 Intake Total 1090 ml 760 ml Output Total 450 ml 300 ml Balance 640 ml 460 ml Intake Oral 5 ml IV Total 900 ml 600 ml Tube Feeding 185 ml 160 ml Output Urine Total 450 ml 300 ml # Voids 1 # Bowel Movements 2 ET-Tube: 7.5 ET Position: 22 Labs: Laboratory Tests Test 12/24/18 04:25 White Blood Count 7.1 K/UL (4.8-10.8) Red Blood Count 3.00 M/UL (4.70-6.10) L Hemoglobin 8.7 G/DL (14.2-18.0) L Hematocrit 27.0 % (42.0-52.0) L Mean Corpuscular Volume 90 FL (80-99) Mean Corpuscular Hemoglobin 28.9 PG (27.0-31.0) Mean Corpuscular Hemoglobin Concent 32.2 G/DL (32.0-36.0) Red Cell Distribution Width 16.3 % (11.6-14.8) H Platelet Count 89 K/UL (150-450) L Mean Platelet Volume 7.2 FL (6.5-10.1) Neutrophils (%) (Auto) % (45.0-75.0) Lymphocytes (%) (Auto) % (20.0-45.0) Monocytes (%) (Auto) % (1.0-10.0) Eosinophils (%) (Auto) % (0.0-3.0) Basophils (%) (Auto) % (0.0-2.0) Differential Total Cells Counted 100 Neutrophils % (Manual) 74 % (45-75) Lymphocytes % (Manual) 13 % (20-45) L Monocytes % (Manual) 11 % (1-10) H Eosinophils % (Manual) 2 % (0-3) Basophils % (Manual) 0 % (0-2) Band Neutrophils 0 % (0-8) Platelet Estimate Decreased L Platelet Morphology Normal Anisocytosis 1+ Sodium Level 145 MMOL/L (136-145) Potassium Level 3.4 MMOL/L (3.5-5.1) L Chloride Level 111 MMOL/L (98-107) H Carbon Dioxide Level 24 MMOL/L (21-32) Anion Gap 10 mmol/L (5-15) Blood Urea Nitrogen 16 mg/dL (7-18) Creatinine 0.9 MG/DL (0.55-1.30) Estimat Glomerular Filtration Rate mL/min (>60) Glucose Level 130 MG/DL (74-106) H Calcium Level 7.8 MG/DL (8.5-10.1) L Phosphorus Level 2.6 MG/DL (2.5-4.9) Magnesium Level 1.7 MG/DL (1.8-2.4) L Total Bilirubin 0.7 MG/DL (0.2-1.0) Aspartate Amino Transf (AST/SGOT) 26 U/L (15-37) Alanine Aminotransferase (ALT/SGPT) 28 U/L (12-78) Alkaline Phosphatase 389 U/L (46-116) H Total Protein 5.9 G/DL (6.4-8.2) L Albumin 2.0 G/DL (3.4-5.0) L Globulin 3.9 g/dL Albumin/Globulin Ratio 0.5 (1.0-2.7) L Bryan Emerson MD Dec 24, 2018 08:53
--- NOTE | 2018-12-24 09:00 | NUR ---
NURSE NOTES: Patient VS stable at this time. Patient denies pain or discomfort. Patient has been seen by speech therapist and has been cleared to be started on pureed-moist diet with nectar thick liquids. Will follow up with GI MD for diet order.
--- NOTE | 2018-12-24 09:11 | NUR ---
RADIOLOGY DEPT CHEST X-RAY DONE.-P.DYE
--- NOTE | 2018-12-24 10:00 | NUR ---
NURSE NOTES: Elke Jacobson NP ordered CCHO medium diet with pureed, moist consistency and nectar thick liquid modification per speech therapist recommendation.
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
--- NOTE | 2018-12-24 11:05 | GI Progress Note ---
Assessment/Plan Problems: (1) Severe anemia ICD Codes: D64.9 - Anemia, unspecified SNOMED: 649952913 (2) Anemia ICD Codes: D64.9 - Anemia, unspecified SNOMED: 882333370 (3) Elevated LFTs ICD Codes: R94.5 - Abnormal results of liver function studies SNOMED: 350026784, 856605317 (4) Dysphagia ICD Codes: R13.10 - Dysphagia, unspecified SNOMED: 80286550, 645234359 Status: progressing Status Narrative Discussed with Dr. Caruso Assessment/Plan s/p EGD SUMMARY OF FINDINGS: Severe gastritis versus portal hypertensive gastropathy versus ischemia, status post biopsy. extubated, OGT removed Speech therapy evaluation reviewed RECOMMENDATIONS: Advance diet per ST Continue on PPI twice a day. Add Carafate. Follow up biopsy results and treat accordingly. restart feeds prn transfusions Electrolyte correction follow labs The patient was seen and examined at bedside and all new and available data was reviewed in the patients chart. I agree with the above findings, impression and plan. (Patient seen earlier today. Signature stamp does not reflect patient encounter time.). - Mike Caruso MD Subjective Gastrointestinal/Abdominal: Reports: no symptoms Subjective limited Objective Last 24 Hour Vital Signs Date Time Temp Pulse Resp B/P (MAP) Pulse Ox O2 Delivery O2 Flow Rate FiO2 12/24/18 10:00 74 22 137/77 (97) 100 12/24/18 09:00 88 23 157/78 (104) 100 12/24/18 08:50 Nasal Cannula 3.0 32 12/24/18 08:50 94 Nasal Cannula 3.0 12/24/18 08:41 82 12/24/18 08:41 85 161/63 12/24/18 08:00 3.0 12/24/18 08:00 98.6 86 23 161/63 (95) 100 12/24/18 08:00 86 12/24/18 07:56 Nasal Cannula 3.0 Nasal Cannula 3.0 12/24/18 07:00 98.6 89 24 157/80 (105) 97 12/24/18 06:00 97 28 158/81 (106) 99 12/24/18 05:00 76 19 170/111 (130) 100 12/24/18 04:00 98.5 84 26 165/85 (111) 99 12/24/18 04:00 Venturi Mask 6.0 Venturi Mask 12/24/18 04:00 30 12/24/18 04:00 85 12/24/18 03:00 89 26 175/87 (116) 99 12/24/18 02:00 83 25 167/83 (111) 96 12/24/18 01:00 84 26 177/81 (113) 94 12/24/18 00:00 30 12/24/18 00:00 Venturi Mask 6.0 Venturi Mask 12/24/18 00:00 81 23 158/82 (107) 98 12/24/18 00:00 83 12/23/18 23:00 84 26 160/83 (108) 96 12/23/18 22:00 85 27 168/85 (112) 95 12/23/18 21:00 82 24 170/95 (120) 97 12/23/18 20:41 85 149/95 12/23/18 20:06 Venturi Mask 8.0 30 12/23/18 20:05 100 Venturi Mask 8.0 30 12/23/18 20:00 40 12/23/18 20:00 98.2 89 22 149/70 (96) 99 12/23/18 20:00 88 12/23/18 20:00 Venturi Mask 6.0 Venturi Mask 12/23/18 19:00 86 23 149/95 (113) 98 12/23/18 18:00 80 20 150/83 (105) 100 12/23/18 17:00 74 17 150/73 (98) 97 12/23/18 16:00 40.0 12/23/18 16:00 69 12/23/18 16:00 98.6 80 22 176/90 (118) 100 12/23/18 16:00 Simple Mask 8.0 12/23/18 15:00 83 22 181/95 (123) 100 12/23/18 14:00 77 21 130/73 (92) 100 12/23/18 13:00 78 17 110/44 (66) 98 12/23/18 12:00 98.8 70 19 105/44 (64) 100 12/23/18 12:00 Simple Mask 15.0 12/23/18 12:00 72 12/23/18 12:00 40.0 12/23/18 11:08 Venturi Mask 40 12/23/18 11:08 95 Venturi Mask 40 12/23/18 11:08 Venturi Mask 40 Intake and Output 12/23/18 12/24/18 19:00 07:00 Intake Total 1090 ml 760 ml Output Total 450 ml 300 ml Balance 640 ml 460 ml Intake Oral 5 ml IV Total 900 ml 600 ml Tube Feeding 185 ml 160 ml Output Urine Total 450 ml 300 ml # Voids 1 # Bowel Movements 2 Laboratory Tests Test 12/24/18 04:25 12/24/18 09:00 White Blood Count 7.1 K/UL (4.8-10.8) Red Blood Count 3.00 M/UL (4.70-6.10) L Hemoglobin 8.7 G/DL (14.2-18.0) L Hematocrit 27.0 % (42.0-52.0) L Mean Corpuscular Volume 90 FL (80-99) Mean Corpuscular Hemoglobin 28.9 PG (27.0-31.0) Mean Corpuscular Hemoglobin Concent 32.2 G/DL (32.0-36.0) Red Cell Distribution Width 16.3 % (11.6-14.8) H Platelet Count 89 K/UL (150-450) L Mean Platelet Volume 7.2 FL (6.5-10.1) Neutrophils (%) (Auto) % (45.0-75.0) Lymphocytes (%) (Auto) % (20.0-45.0) Monocytes (%) (Auto) % (1.0-10.0) Eosinophils (%) (Auto) % (0.0-3.0) Basophils (%) (Auto) % (0.0-2.0) Differential Total Cells Counted 100 Neutrophils % (Manual) 74 % (45-75) Lymphocytes % (Manual) 13 % (20-45) L Monocytes % (Manual) 11 % (1-10) H Eosinophils % (Manual) 2 % (0-3) Basophils % (Manual) 0 % (0-2) Band Neutrophils 0 % (0-8) Platelet Estimate Decreased L Platelet Morphology Normal Anisocytosis 1+ Sodium Level 145 MMOL/L (136-145) Potassium Level 3.4 MMOL/L (3.5-5.1) L Chloride Level 111 MMOL/L (98-107) H Carbon Dioxide Level 24 MMOL/L (21-32) Anion Gap 10 mmol/L (5-15) Blood Urea Nitrogen 16 mg/dL (7-18) Creatinine 0.9 MG/DL (0.55-1.30) Estimat Glomerular Filtration Rate mL/min (>60) Glucose Level 130 MG/DL (74-106) H Calcium Level 7.8 MG/DL (8.5-10.1) L Phosphorus Level 2.6 MG/DL (2.5-4.9) Magnesium Level 1.7 MG/DL (1.8-2.4) L Total Bilirubin 0.7 MG/DL (0.2-1.0) Aspartate Amino Transf (AST/SGOT) 26 U/L (15-37) Alanine Aminotransferase (ALT/SGPT) 28 U/L (12-78) Alkaline Phosphatase 389 U/L (46-116) H Total Protein 5.9 G/DL (6.4-8.2) L Albumin 2.0 G/DL (3.4-5.0) L Globulin 3.9 g/dL Albumin/Globulin Ratio 0.5 (1.0-2.7) L Arterial Blood pH 7.470 (7.350-7.450) Arterial Blood Partial Pressure CO2 29.7 mmHg (35.0-45.0) L Arterial Blood Partial Pressure O2 65.5 mmHg (75.0-100.0) L Arterial Blood HCO3 21.1 mmol/L (22.0-26.0) L Arterial Blood Oxygen Saturation 92.7 % (95-100) L Arterial Blood Base Excess -1.8 (-2-2) Remberto Test Positive Height (Feet): 5 Height (Inches): 6.00 Weight (Pounds): 116 General Appearance: WD/WN, no apparent distress, alert, thin Cardiovascular: normal rate Respiratory/Chest: normal breath sounds, no respiratory distress Abdominal Exam: normal bowel sounds, non tender, soft Extremities: non-tender Elke Jacobson NP Dec 24, 2018 11:05
--- NOTE | 2018-12-24 11:29 | NUR ---
HAND-OFF: Report given to SARAI Rubi. Patient VS stable at this time with no sign of acute distress. patient has order for transfer to telemetry. Awaiting a bed.
--- NOTE | 2018-12-24 11:45 | NUR ---
TRANSFER TO FLOOR: Patient transferred to [facility], per staff member. Report given to SARAI Hooper. Belongings and medications given to staff nurse. Family and or S/O informed of transfer. Addendum: 12/25/18 at 0043 by NIKOLAS VILLEDA RN RN changed of time to 12/24/2018 23:45, transferred to tele (from ICU)
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
--- NOTE | 2018-12-24 12:08 | Diagnostic Imaging Report ---
Indication: Shortness of breath Technique: One view of the chest Comparison: 12/23/2018 Findings: Interim endotracheal and nasogastric tube removal. Less optimal inspiration currently resulting in crowding of the bronchovascular markings. Both hemidiaphragms, particularly the left, are now obscured. This may indicate developing pleural fluid, or could be less apparent due to the lower lung volumes. Bilateral interstitial and airspace opacities appear equivocally more dense, although this could also be an artifact of the lower lung volumes. Impression: Interim endotracheal and nasogastric tube removal Hypoventilatory exam currently Bilateral interstitial and airspace disease, stable or perhaps slightly worse, allowing for differences in degree of inspiration. Possible bilateral pleural effusions, versus artifact related to suboptimal inspiration
--- NOTE | 2018-12-24 12:20 | Physician Query ---
--THIS DOCUMENT IS A PERMANENT PART OF THE MEDICAL RECORD -- PLEASE COMPLETE DOCUMENT BEFORE SIGNING Dear Dr. 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 Patient is admitted with shortness of breath. Chest CT (12/16/2018): Dense lower lobe consolidation and atelectasis on left side, Suspect pulmonary edema. Rx: IV Zosyn (12/16/2018-12/22/2018) Please clarify if patient has: [ ] Pneumonia only [ ] Edema only [ x ] Both Pneumonia and edema [ ] None [ ] Other: [ ] Clinically undetermined Present on Admission: [ ] Yes [ x ] No [ ] Clinically Undetermined Please also document in your Progress Notes and/or Discharge Summary and indicate if the condition was present on admission. Physician signature Date MTDD
--- NOTE | 2018-12-24 12:30 | NUR ---
NURSE NOTES: Patient report received from SARAI Watkins. Patient is awake and alert to name, time and place, denies any pain, he is able to reposition patient with little assistance, he is on Nasal Cannula at 3L/min with no distress noted, will continue plan of care.
--- NOTE | 2018-12-24 13:17 | Surgery Progress Note ---
Surgery Progress Note Subjective Additional Comments seemingly more comfortable. no n/v/f/c. labs noted. respiratory improved. Objective Last 24 Hour Vital Signs Date Time Temp Pulse Resp B/P (MAP) Pulse Ox O2 Delivery O2 Flow Rate FiO2 12/24/18 11:00 69 20 151/77 (101) 100 12/24/18 10:00 74 22 137/77 (97) 100 12/24/18 09:00 88 23 157/78 (104) 100 12/24/18 08:50 Nasal Cannula 3.0 32 12/24/18 08:50 94 Nasal Cannula 3.0 12/24/18 08:41 82 12/24/18 08:41 85 161/63 12/24/18 08:00 3.0 12/24/18 08:00 98.6 86 23 161/63 (95) 100 12/24/18 08:00 86 12/24/18 07:56 Nasal Cannula 3.0 Nasal Cannula 3.0 12/24/18 07:00 98.6 89 24 157/80 (105) 97 12/24/18 06:00 97 28 158/81 (106) 99 12/24/18 05:00 76 19 170/111 (130) 100 12/24/18 04:00 98.5 84 26 165/85 (111) 99 12/24/18 04:00 Venturi Mask 6.0 Venturi Mask 12/24/18 04:00 30 12/24/18 04:00 85 12/24/18 03:00 89 26 175/87 (116) 99 12/24/18 02:00 83 25 167/83 (111) 96 12/24/18 01:00 84 26 177/81 (113) 94 12/24/18 00:00 30 12/24/18 00:00 Venturi Mask 6.0 Venturi Mask 12/24/18 00:00 81 23 158/82 (107) 98 12/24/18 00:00 83 12/23/18 23:00 84 26 160/83 (108) 96 12/23/18 22:00 85 27 168/85 (112) 95 12/23/18 21:00 82 24 170/95 (120) 97 12/23/18 20:41 85 149/95 12/23/18 20:06 Venturi Mask 8.0 30 12/23/18 20:05 100 Venturi Mask 8.0 30 12/23/18 20:00 40 12/23/18 20:00 98.2 89 22 149/70 (96) 99 12/23/18 20:00 88 12/23/18 20:00 Venturi Mask 6.0 Venturi Mask 12/23/18 19:00 86 23 149/95 (113) 98 12/23/18 18:00 80 20 150/83 (105) 100 12/23/18 17:00 74 17 150/73 (98) 97 12/23/18 16:00 40.0 12/23/18 16:00 69 12/23/18 16:00 98.6 80 22 176/90 (118) 100 12/23/18 16:00 Simple Mask 8.0 12/23/18 15:00 83 22 181/95 (123) 100 12/23/18 14:00 77 21 130/73 (92) 100 I&O Intake and Output 12/23/18 12/24/18 19:00 07:00 Intake Total 1090 ml 760 ml Output Total 450 ml 300 ml Balance 640 ml 460 ml Intake Oral 5 ml IV Total 900 ml 600 ml Tube Feeding 185 ml 160 ml Output Urine Total 450 ml 300 ml # Voids 1 # Bowel Movements 2 Cardiovascular: RSR Respiratory: clear Abdomen: soft, non-tender, non-distended Extremities: no cyanosis Laboratory Tests Test 12/24/18 04:25 12/24/18 09:00 White Blood Count 7.1 K/UL (4.8-10.8) Red Blood Count 3.00 M/UL (4.70-6.10) L Hemoglobin 8.7 G/DL (14.2-18.0) L Hematocrit 27.0 % (42.0-52.0) L Mean Corpuscular Volume 90 FL (80-99) Mean Corpuscular Hemoglobin 28.9 PG (27.0-31.0) Mean Corpuscular Hemoglobin Concent 32.2 G/DL (32.0-36.0) Red Cell Distribution Width 16.3 % (11.6-14.8) H Platelet Count 89 K/UL (150-450) L Mean Platelet Volume 7.2 FL (6.5-10.1) Neutrophils (%) (Auto) % (45.0-75.0) Lymphocytes (%) (Auto) % (20.0-45.0) Monocytes (%) (Auto) % (1.0-10.0) Eosinophils (%) (Auto) % (0.0-3.0) Basophils (%) (Auto) % (0.0-2.0) Differential Total Cells Counted 100 Neutrophils % (Manual) 74 % (45-75) Lymphocytes % (Manual) 13 % (20-45) L Monocytes % (Manual) 11 % (1-10) H Eosinophils % (Manual) 2 % (0-3) Basophils % (Manual) 0 % (0-2) Band Neutrophils 0 % (0-8) Platelet Estimate Decreased L Platelet Morphology Normal Anisocytosis 1+ Sodium Level 145 MMOL/L (136-145) Potassium Level 3.4 MMOL/L (3.5-5.1) L Chloride Level 111 MMOL/L (98-107) H Carbon Dioxide Level 24 MMOL/L (21-32) Anion Gap 10 mmol/L (5-15) Blood Urea Nitrogen 16 mg/dL (7-18) Creatinine 0.9 MG/DL (0.55-1.30) Estimat Glomerular Filtration Rate mL/min (>60) Glucose Level 130 MG/DL (74-106) H Calcium Level 7.8 MG/DL (8.5-10.1) L Phosphorus Level 2.6 MG/DL (2.5-4.9) Magnesium Level 1.7 MG/DL (1.8-2.4) L Total Bilirubin 0.7 MG/DL (0.2-1.0) Aspartate Amino Transf (AST/SGOT) 26 U/L (15-37) Alanine Aminotransferase (ALT/SGPT) 28 U/L (12-78) Alkaline Phosphatase 389 U/L (46-116) H Total Protein 5.9 G/DL (6.4-8.2) L Albumin 2.0 G/DL (3.4-5.0) L Globulin 3.9 g/dL Albumin/Globulin Ratio 0.5 (1.0-2.7) L Arterial Blood pH 7.470 (7.350-7.450) Arterial Blood Partial Pressure CO2 29.7 mmHg (35.0-45.0) L Arterial Blood Partial Pressure O2 65.5 mmHg (75.0-100.0) L Arterial Blood HCO3 21.1 mmol/L (22.0-26.0) L Arterial Blood Oxygen Saturation 92.7 % (95-100) L Arterial Blood Base Excess -1.8 (-2-2) Remberto Test Positive Plan Problems: (1) Inguinal hernia Assessment & Plan: 78 year old male with massive inguinal hernia with bowel contents. CT with Massive indirect right inguinal hernia, containing the proximal colon and much if not most of the small bowel. No definite evidence of obstruction or strangulation Anasarca, with diffuse extensive bilateral pulmonary edema, bilateral pleural effusions, small amount of free intraperitoneal fluid, and extensive edema of the subcutaneous and mediastinal fat Colonic diverticulosis Diffuse skeletal osteosclerosis Distended bladder Prostatomegaly Large bilateral renal cysts. Calcification in the periventricular right kidney likely represent old involuted calcified cyst Nasogastric tube Incidental finding right lobe liver cyst On exam large inguinal hernia with bowel contents in scrotum not reducible but no signs of obstruction / strangulation. in reviewing CT likely loss of domain given patients body habitus compared to hernia size. patient awake but intubated on vent support. no tenderness but does have discomfort with manipulation. given above no acute surgical intervention planned as this is likely chronic and with loss of domain. unlikely to be incarcerated but will need to keep an eye on it as bowel can obstruction will follow with exams thank you Yordy Tucker Dec 24, 2018 13:17
--- NOTE | 2018-12-24 13:38 | General Progress Note ---
Assessment/Plan Problem List: (1) Respiratory failure with hypoxia ICD Codes: J96.91 - Respiratory failure, unspecified with hypoxia SNOMED: 27836341291542723 Qualifiers: Qualified Codes: J96.01 - Acute respiratory failure with hypoxia (2) Atrial fibrillation with rapid ventricular response ICD Codes: I48.91 - Unspecified atrial fibrillation SNOMED: 387561461620252, 593607489 (3) Severe anemia ICD Codes: D64.9 - Anemia, unspecified SNOMED: 445913152 (4) ATN (acute tubular necrosis) ICD Codes: N17.0 - Acute kidney failure with tubular necrosis SNOMED: 97116459 (5) DM (diabetes mellitus) ICD Codes: E11.9 - Type 2 diabetes mellitus without complications SNOMED: 89588395 Status: stable, progressing Assessment/Plan vent transfuse prn cardio heme eval f/u cbc bmp am Subjective Constitutional: Reports: weakness Allergies: Coded Allergies: No Known Allergies (Unverified , 12/15/18) All Systems: reviewed and negative except above Subjective o2nc in icu Objective Last 24 Hour Vital Signs Date Time Temp Pulse Resp B/P (MAP) Pulse Ox O2 Delivery O2 Flow Rate FiO2 12/24/18 11:00 69 20 151/77 (101) 100 12/24/18 10:00 74 22 137/77 (97) 100 12/24/18 09:00 88 23 157/78 (104) 100 12/24/18 08:50 Nasal Cannula 3.0 32 12/24/18 08:50 94 Nasal Cannula 3.0 12/24/18 08:41 82 12/24/18 08:41 85 161/63 12/24/18 08:00 3.0 12/24/18 08:00 98.6 86 23 161/63 (95) 100 12/24/18 08:00 86 12/24/18 07:56 Nasal Cannula 3.0 Nasal Cannula 3.0 12/24/18 07:00 98.6 89 24 157/80 (105) 97 12/24/18 06:00 97 28 158/81 (106) 99 12/24/18 05:00 76 19 170/111 (130) 100 12/24/18 04:00 98.5 84 26 165/85 (111) 99 12/24/18 04:00 Venturi Mask 6.0 Venturi Mask 12/24/18 04:00 30 12/24/18 04:00 85 12/24/18 03:00 89 26 175/87 (116) 99 12/24/18 02:00 83 25 167/83 (111) 96 12/24/18 01:00 84 26 177/81 (113) 94 12/24/18 00:00 30 12/24/18 00:00 Venturi Mask 6.0 Venturi Mask 12/24/18 00:00 81 23 158/82 (107) 98 12/24/18 00:00 83 12/23/18 23:00 84 26 160/83 (108) 96 12/23/18 22:00 85 27 168/85 (112) 95 12/23/18 21:00 82 24 170/95 (120) 97 12/23/18 20:41 85 149/95 12/23/18 20:06 Venturi Mask 8.0 30 12/23/18 20:05 100 Venturi Mask 8.0 30 12/23/18 20:00 40 12/23/18 20:00 98.2 89 22 149/70 (96) 99 12/23/18 20:00 88 12/23/18 20:00 Venturi Mask 6.0 Venturi Mask 12/23/18 19:00 86 23 149/95 (113) 98 12/23/18 18:00 80 20 150/83 (105) 100 12/23/18 17:00 74 17 150/73 (98) 97 12/23/18 16:00 40.0 12/23/18 16:00 69 12/23/18 16:00 98.6 80 22 176/90 (118) 100 12/23/18 16:00 Simple Mask 8.0 12/23/18 15:00 83 22 181/95 (123) 100 12/23/18 14:00 77 21 130/73 (92) 100 Intake and Output 12/23/18 12/24/18 19:00 07:00 Intake Total 1090 ml 760 ml Output Total 450 ml 300 ml Balance 640 ml 460 ml Intake Oral 5 ml IV Total 900 ml 600 ml Tube Feeding 185 ml 160 ml Output Urine Total 450 ml 300 ml # Voids 1 # Bowel Movements 2 Laboratory Tests 12/24/18 04:25: White Blood Count 7.1, Red Blood Count 3.00L, Hemoglobin 8.7L, Hematocrit 27.0L , Mean Corpuscular Volume 90, Mean Corpuscular Hemoglobin 28.9, Mean Corpuscular Hemoglobin Concent 32.2, Red Cell Distribution Width 16.3H, Platelet Count 89L, Mean Platelet Volume 7.2, Neutrophils (%) (Auto) , Lymphocytes (%) (Auto) , Monocytes (%) (Auto) , Eosinophils (%) (Auto) , Basophils (%) (Auto) , Differential Total Cells Counted 100, Neutrophils % ( Manual) 74, Lymphocytes % (Manual) 13L, Monocytes % (Manual) 11H, Eosinophils % (Manual) 2, Basophils % (Manual) 0, Band Neutrophils 0, Platelet Estimate DecreasedL, Platelet Morphology Normal, Anisocytosis 1+, Sodium Level 145, Potassium Level 3.4L, Chloride Level 111H, Carbon Dioxide Level 24, Anion Gap 10 , Blood Urea Nitrogen 16, Creatinine 0.9, Estimat Glomerular Filtration Rate , Glucose Level 130H, Calcium Level 7.8L, Phosphorus Level 2.6, Magnesium Level 1.7L, Total Bilirubin 0.7, Aspartate Amino Transf (AST/SGOT) 26, Alanine Aminotransferase (ALT/SGPT) 28, Alkaline Phosphatase 389H, Total Protein 5.9L, Albumin 2.0L, Globulin 3.9, Albumin/Globulin Ratio 0.5L 12/24/18 09:00: Arterial Blood pH 7.470H, Arterial Blood Partial Pressure CO2 29.7L, Arterial Blood Partial Pressure O2 65.5L, Arterial Blood HCO3 21.1L, Arterial Blood Oxygen Saturation 92.7L, Arterial Blood Base Excess -1.8, Remberto Test Positive Height (Feet): 5 Height (Inches): 6.00 Weight (Pounds): 116 General Appearance: lethargic EENT: normal ENT inspection Neck: normal alignment Cardiovascular: normal peripheral pulses, normal rate, regular rhythm Respiratory/Chest: chest wall non-tender, decreased breath sounds Abdomen: normal bowel sounds, non tender, soft Pelvis: normal external exam, normal rectal exam, speculum exam normal Extremities: normal inspection Edema: no edema noted Arm (L), no edema noted Arm (R), no edema noted Leg (L), no edema noted Leg (R), no edema noted Pedal (L), no edema noted Pedal (R), no edema noted Generalized Neurologic: responsive, motor weakness Skin: normal pigmentation, warm/dry Landry Green DO Dec 24, 2018 13:38
--- NOTE | 2018-12-24 16:11 | Cardiac Electrophysiology PN ---
Assessment/Plan Assessment/Plan 1. Atrial fibrillation with rapid ventricular response. This could have been precipitated due to the patient's profound anemia with hemoglobin of 3.5. Echocardiogram showed ejection fraction of 45% with moderate to severe pulmonary hypertension. On Lopressor 100 bid and Dig 0.25 daily Converted to SR on 12/23/18 Off anticoagulations for gastrointestinal bleed and hemoglobin 3.5. 2. Troponin leak due to atrial fib with RVR 3. Hypertension. Continue Metoprolol . 4. Profound anemia, hemoglobin of 3.5. The patient was evaluated by Dr. Caruso and Berkley. S/P EGD by Dr Caruso 12/22/18 gastritis 5. Respiratory failure, extubated 6 . Mild azotemia, BUN of 20, creatinine 1.0. DW RN Subjective Subjective In ICU on Lopressor 100 bid and Digoxin 0.25 daily. RN at bedside. Converted to SR. Extubated on Face Mask Objective Last 24 Hour Vital Signs Date Time Temp Pulse Resp B/P (MAP) Pulse Ox O2 Delivery O2 Flow Rate FiO2 12/24/18 15:00 74 23 145/77 (99) 100 12/24/18 14:00 71 21 148/77 (100) 100 12/24/18 13:00 72 21 147/71 (96) 100 12/24/18 12:00 98.9 70 20 146/70 (95) 100 12/24/18 12:00 69 12/24/18 12:00 Nasal Cannula 3.0 12/24/18 12:00 3.0 12/24/18 11:00 69 20 151/77 (101) 100 12/24/18 10:00 74 22 137/77 (97) 100 12/24/18 09:00 88 23 157/78 (104) 100 12/24/18 08:50 Nasal Cannula 3.0 32 12/24/18 08:50 94 Nasal Cannula 3.0 12/24/18 08:41 82 12/24/18 08:41 85 161/63 12/24/18 08:00 3.0 12/24/18 08:00 98.6 86 23 161/63 (95) 100 12/24/18 08:00 86 12/24/18 07:56 Nasal Cannula 3.0 Nasal Cannula 3.0 12/24/18 07:00 98.6 89 24 157/80 (105) 97 12/24/18 06:00 97 28 158/81 (106) 99 12/24/18 05:00 76 19 170/111 (130) 100 12/24/18 04:00 98.5 84 26 165/85 (111) 99 12/24/18 04:00 Venturi Mask 6.0 Venturi Mask 12/24/18 04:00 30 12/24/18 04:00 85 12/24/18 03:00 89 26 175/87 (116) 99 12/24/18 02:00 83 25 167/83 (111) 96 12/24/18 01:00 84 26 177/81 (113) 94 12/24/18 00:00 30 12/24/18 00:00 Venturi Mask 6.0 Venturi Mask 12/24/18 00:00 81 23 158/82 (107) 98 12/24/18 00:00 83 12/23/18 23:00 84 26 160/83 (108) 96 12/23/18 22:00 85 27 168/85 (112) 95 12/23/18 21:00 82 24 170/95 (120) 97 12/23/18 20:41 85 149/95 12/23/18 20:06 Venturi Mask 8.0 30 12/23/18 20:05 100 Venturi Mask 8.0 30 12/23/18 20:00 40 12/23/18 20:00 98.2 89 22 149/70 (96) 99 12/23/18 20:00 88 12/23/18 20:00 Venturi Mask 6.0 Venturi Mask 12/23/18 19:00 86 23 149/95 (113) 98 12/23/18 18:00 80 20 150/83 (105) 100 12/23/18 17:00 74 17 150/73 (98) 97 Intake and Output 12/23/18 12/24/18 19:00 07:00 Intake Total 1090 ml 760 ml Output Total 450 ml 300 ml Balance 640 ml 460 ml Intake Oral 5 ml IV Total 900 ml 600 ml Tube Feeding 185 ml 160 ml Output Urine Total 450 ml 300 ml # Voids 1 # Bowel Movements 2 Laboratory Tests Test 12/24/18 04:25 12/24/18 09:00 White Blood Count 7.1 K/UL (4.8-10.8) Red Blood Count 3.00 M/UL (4.70-6.10) L Hemoglobin 8.7 G/DL (14.2-18.0) L Hematocrit 27.0 % (42.0-52.0) L Mean Corpuscular Volume 90 FL (80-99) Mean Corpuscular Hemoglobin 28.9 PG (27.0-31.0) Mean Corpuscular Hemoglobin Concent 32.2 G/DL (32.0-36.0) Red Cell Distribution Width 16.3 % (11.6-14.8) H Platelet Count 89 K/UL (150-450) L Mean Platelet Volume 7.2 FL (6.5-10.1) Neutrophils (%) (Auto) % (45.0-75.0) Lymphocytes (%) (Auto) % (20.0-45.0) Monocytes (%) (Auto) % (1.0-10.0) Eosinophils (%) (Auto) % (0.0-3.0) Basophils (%) (Auto) % (0.0-2.0) Differential Total Cells Counted 100 Neutrophils % (Manual) 74 % (45-75) Lymphocytes % (Manual) 13 % (20-45) L Monocytes % (Manual) 11 % (1-10) H Eosinophils % (Manual) 2 % (0-3) Basophils % (Manual) 0 % (0-2) Band Neutrophils 0 % (0-8) Platelet Estimate Decreased L Platelet Morphology Normal Anisocytosis 1+ Sodium Level 145 MMOL/L (136-145) Potassium Level 3.4 MMOL/L (3.5-5.1) L Chloride Level 111 MMOL/L (98-107) H Carbon Dioxide Level 24 MMOL/L (21-32) Anion Gap 10 mmol/L (5-15) Blood Urea Nitrogen 16 mg/dL (7-18) Creatinine 0.9 MG/DL (0.55-1.30) Estimat Glomerular Filtration Rate mL/min (>60) Glucose Level 130 MG/DL (74-106) H Calcium Level 7.8 MG/DL (8.5-10.1) L Phosphorus Level 2.6 MG/DL (2.5-4.9) Magnesium Level 1.7 MG/DL (1.8-2.4) L Total Bilirubin 0.7 MG/DL (0.2-1.0) Aspartate Amino Transf (AST/SGOT) 26 U/L (15-37) Alanine Aminotransferase (ALT/SGPT) 28 U/L (12-78) Alkaline Phosphatase 389 U/L (46-116) H Total Protein 5.9 G/DL (6.4-8.2) L Albumin 2.0 G/DL (3.4-5.0) L Globulin 3.9 g/dL Albumin/Globulin Ratio 0.5 (1.0-2.7) L Arterial Blood pH 7.470 (7.350-7.450) Arterial Blood Partial Pressure CO2 29.7 mmHg (35.0-45.0) L Arterial Blood Partial Pressure O2 65.5 mmHg (75.0-100.0) L Arterial Blood HCO3 21.1 mmol/L (22.0-26.0) L Arterial Blood Oxygen Saturation 92.7 % (95-100) L Arterial Blood Base Excess -1.8 (-2-2) Remberto Test Positive Objective HEAD AND NECK: No JVD Face Mask on LUNGS: Coarse rhonchi. CARDIOVASCULAR:Regular S1 and S2 with no gallop or murmur. Tachycardic. ABDOMEN: Soft. EXTREMITIES: No pitting edema. Shantanu Mcmillan MD Dec 24, 2018 16:11
--- NOTE | 2018-12-24 17:45 | NUR ---
NURSE NOTES: Patient to be transferred to telemetry unit per Dr. Emerson, room is 209. patient is eating with no assitance diet of CCHO purred moist, nectar thick. he remains on Nasal cannula at 3L/min with no distress noted, will continue plan of care.
--- NOTE | 2018-12-24 18:06 | NUR ---
CASE MANAGEMENT: REVIEW SI: GI BLEED . A-FIB w/RVR . INGUINAL HERNIA EGD w/BIOPSY 12/22 T 98.9 HR 69 RR 23 BP 151/77 SAT 99% VENTURI MASK H/H 8.7/27.0 K 3.4 IS: D5W IVF @50ML/HR DIGOXIN PO QD LOPRESSOR PO Q12HR TELEMETRY UNIT STATUS DCP: PATIENT IS FROM HOME
--- NOTE | 2018-12-24 19:30 | NUR ---
NURSE NOTES: Received report from SARAI Rubi. Patient 's AO x4, opens eyes spontaneously, in no acute distress. VS stable. SR on state assessed properties director .Extubated yesterday, now on NC 3L. Swallow eval done. With right forearm 20G and left hand 20G. Ongoing D5W 50ml/hr. SCDs in place. Head of bed elevated. Bed locked and in low position. Bed alarm on. Call light within reach. Will continue to monitor.
--- NOTE | 2018-12-24 19:30 | NUR ---
HAND-OFF: Report given to SARAI Blair.
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
--- NOTE | 2018-12-24 22:00 | NUR ---
NURSE NOTES: Patient 's AO x4, watching TV in bed, in no acute distress. VS stable. SR on jig box operator . On NC 3L. With right forearm 20G and left hand 20G. Ongoing D5W 50ml/hr. SCDs in place. Head of bed elevated. Bed locked and in low position. Bed alarm on. Call light within reach. Will continue to monitor.
--- NOTE | 2018-12-24 23:45 | NUR ---
TRANSFER TO FLOOR: Patient transferred to [facility], per staff member. Report given to SARAI Hooper. Belongings and medications given to staff nurse. Family and or S/O informed of transfer.
--- NOTE | 2018-12-24 23:45 | NUR ---
NURSE NOTES: Received report from Boni Chacko RN. Patient is awake in bed, A/O x4. Sinus rhythm on cardiac specialist. No s/s of acute distress noted. Saturating well on 3L O2 via nasal cannula. Right forearm 20g IV, intact and patent, running D5W @ 50 cc/hr. Left forearm 20g IV TKO, intact and patent. Bed locked in lowest position with side rails up x2. Call light left within reach. Will continue to monitor.
[2018-12-25] VITALS (7 sets, daily range): BP systolic 104–142; BP diastolic 61–78
--- NOTE | 2018-12-25 07:25 | NUR ---
HAND-OFF: Report given to Joaquín Becker RN.
--- NOTE | 2018-12-25 07:30 | NUR ---
NURSE NOTES: I received the patient awake and resting in bed. Patient alert and oriented x4. Bed in the lowest position and call light within reach. Patient educated about the using the call light when he needs assistance. I will continue to monitor the patient and implement care.
--- NOTE | 2018-12-25 07:47 | Pulmonology Progress Note ---
Assessment/Plan Assessment/Plan ASSESSMENT acute respiratory failure requiring intubation, status post extubation 12/23 pulmonary infiltrates : pneumonia versus edema acute anemia requiring blood transfusion- improved atrial fibrillation with rapid ventricular response troponin leak likely due to atrial fibrillation with RVR HTN severe pulmonary hypertension elevated LFT -resolved s/p EGD with biopsy severe gastritis versus portal hypertensive gastropathy versus ischemia status post biopsy dysphagia acute kidney injury inguinal hernia thrombocytopenia protein calorie malnutrition PLAN OF CARE tele supplemental O2 prn to keep pulse ox above 92%, pulmonary toilet. CT scan noted fup with CXR on Thursday ID recommended to keep off abx; given no fever , no leukocytosis doubt PNA. feel more like pulm edema , (which supported by CT scan results, see below) HR controlled with BB and digoxin , off a/coagulation 2 to severe anemia s/p 12/22 upper endoscopy with findings of severe gastritis versus portal hypertensive gastropathy versus ischemia PPI bid and Carafate fup with biopsy results monitor LFT - down trended hepatitis panel negative HIV nonreactive CT abdomen/ pelvis with massive indirect right inguinal hernia, containing the proximal colon and much of small bowel, anasarca, colonic diverticulosis, prostatomegaly, diffuse extensive bilateral pulmonary edema with bilateral pleural effusion diet was advanced as per ST recs dietary eval re protien supplements cardio follows ECHO with pEF and evidence of severe pulm HTN per cardio troponin leak was due to A fib with RVR which in turn precipitated by severe anemia monitor renal parameters and lytes ,correct lytes as needed ,avoid nephrotoxic monitor H&H with goal to keep hemoglobin above 7 , remained at baseline heme follows anemia workup consistent with anemia of chronic disease due to underlying chronic medical issues Epogen or iron not particularly indicated. leukopenia potentially from infection stool OB+ x2 CEA with mild elevation -6.2 ? colonoscopy as per GI description surgery follows for large inguinal hernia with bowel contents in scrotum, per surgeon: on exam not reducible, but no signs of obstruction / strangulation; no tenderness but has discomfort with manipulation no acute surgical intervention planned as this is likely chronic ; unlikely to be incarcerated , but will need to keep an eye on it as bowel can get obstructed supportive care case discussed and evaluated by supervising physician Subjective Allergies: Coded Allergies: No Known Allergies (Unverified , 12/15/18) Subjective transferred to tele s/p extubation 12/23 pulse ox stable on 3L O2 via NC no resp distress Objective Last 24 Hour Vital Signs Date Time Temp Pulse Resp B/P (MAP) Pulse Ox O2 Delivery O2 Flow Rate FiO2 12/25/18 04:00 3.0 12/25/18 04:00 Nasal Cannula 3.0 12/25/18 04:00 98.3 66 20 112/61 (78) 100 12/25/18 03:55 69 12/25/18 00:00 Nasal Cannula 3.0 12/25/18 00:00 85 12/25/18 00:00 3.0 12/25/18 00:00 97.7 72 20 138/72 (94) 98 12/24/18 23:51 70 12/24/18 23:45 67 22 140/73 (95) 98 12/24/18 23:00 68 20 131/70 (90) 100 12/24/18 22:00 76 22 130/67 (88) 100 12/24/18 21:00 98.4 76 26 155/83 (107) 100 12/24/18 20:42 80 137/70 12/24/18 20:00 Nasal Cannula 3.0 32 12/24/18 20:00 77 12/24/18 20:00 Nasal Cannula 3.0 12/24/18 20:00 78 22 137/70 (92) 100 12/24/18 20:00 93 Nasal Cannula 3.0 32 12/24/18 20:00 3.0 12/24/18 19:00 79 23 162/84 (110) 100 12/24/18 18:00 78 22 160/79 (106) 99 12/24/18 17:00 77 22 143/78 (99) 100 12/24/18 16:00 84 12/24/18 16:00 97.6 70 21 148/72 (97) 100 12/24/18 16:00 Nasal Cannula 3.0 12/24/18 16:00 3.0 12/24/18 15:00 74 23 145/77 (99) 100 12/24/18 14:00 71 21 148/77 (100) 100 12/24/18 13:00 72 21 147/71 (96) 100 12/24/18 12:00 98.9 70 20 146/70 (95) 100 12/24/18 12:00 69 12/24/18 12:00 Nasal Cannula 3.0 3/8/19 12:00 3.0 12/24/18 11:00 69 20 151/77 (101) 100 12/24/18 10:00 74 22 137/77 (97) 100 12/24/18 09:00 88 23 157/78 (104) 100 12/24/18 08:50 Nasal Cannula 3.0 32 12/24/18 08:50 94 Nasal Cannula 3.0 12/24/18 08:41 82 12/24/18 08:41 85 161/63 12/24/18 08:00 3.0 12/24/18 08:00 98.6 86 23 161/63 (95) 100 12/24/18 08:00 86 12/24/18 07:56 Nasal Cannula 3.0 Nasal Cannula 3.0 Intake and Output 12/24/18 12/25/18 19:00 07:00 Intake Total 650 ml 562.5 ml Output Total 245 ml 750 ml Balance 405 ml -187.5 ml IV Total 650 ml 562.5 ml Output Urine Total 245 ml 750 ml # Bowel Movements 5 General Appearance: cachetic HEENT: normocephalic, atraumatic, anicteric, mucous membranes moist Respiratory/Chest: chest wall non-tender, lungs clear, no respiratory distress , no accessory muscle use Cardiovascular: normal peripheral pulses, normal rate - SR on tele , regular rhythm Abdomen: normal bowel sounds, soft, non tender, non distended Extremities: no edema Neurologic/Psychiatric: no motor/sensory deficits, alert, oriented x 3, responsive Musculoskeletal: atrophy - BLE Laboratory Tests 12/24/18 09:00: Arterial Blood pH 7.470H, Arterial Blood Partial Pressure CO2 29.7L, Arterial Blood Partial Pressure O2 65.5L, Arterial Blood HCO3 21.1L, Arterial Blood Oxygen Saturation 92.7L, Arterial Blood Base Excess -1.8, Remberto Test Positive Current Medications Medications (Trade) Dose Ordered Sig/Brock Route PRN Reason Start Time Stop Time Status Last Admin Dose Admin Acetaminophen (Tylenol) 650 mg Q4H PRN ORAL fever 12/25/18 03:15 01/15/19 07:14 Dextrose 1,000 ml @ 50 mls/hr Q20H IV 12/24/18 23:45 01/21/19 10:14 12/24/18 23:45 Dextrose (Dextrose 50%) 25 ml Q30M PRN IV Hypoglycemia 12/24/18 23:45 01/15/19 07:14 Digoxin (Lanoxin) 0.25 mg DAILY ORAL 12/25/18 09:00 01/18/19 08:59 Metoprolol Tartrate (Lopressor) 100 mg EVERY 12 HOURS NG 12/25/18 09:00 01/17/19 08:59 Pantoprazole (Protonix) 40 mg DAILY IV 12/25/18 09:00 01/17/19 08:59 Dian Martinez [employer] Dec 25, 2018 07:47
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
[2018-12-25 08:12] LABS: BASOPHILS % (AUTO) 0.3 % (0.0-2.0); EOSINOPHILS % (AUTO) 0.9 % (0.0-3.0); HEMATOCRIT 30.9 % (42.0-52.0); LYMPHOCYTES % (AUTO) 18.8 % (20.0-45.0); MEAN CORPUSCULAR VOLUME 90 FL (80-99); MONOCYTES % (AUTO) 5.3 % (1.0-10.0); NEUTROPHILS % (AUTO) 74.6 % (45.0-75.0); PLATELET COUNT 105 K/UL (150-450); RED BLOOD COUNT 3.44 M/UL (4.70-6.10); RED CELL DISTRIBUTION WIDTH 16.4 % (11.6-14.8); WHITE BLOOD COUNT 9.1 K/UL (4.8-10.8)
[2018-12-25 08:32] LABS: ALANINE AMINOTRANSFERASE 31 U/L (12-78); ALBUMIN 2.2 G/DL (3.4-5.0); ALBUMIN/GLOBULIN RATIO 0.5 (1.0-2.7); ALKALINE PHOSPHATASE 471 U/L (46-116); ANION GAP 9 mmol/L (5-15); ASPARTATE AMINO TRANSFERASE 27 U/L (15-37); BILIRUBIN,TOTAL 0.9 MG/DL (0.2-1.0); BLOOD UREA NITROGEN 11 mg/dL (7-18); CALCIUM 8.4 MG/DL (8.5-10.1); CARBON DIOXIDE 26 MMOL/L (21-32); CHLORIDE 104 MMOL/L (98-107); CREATININE 0.8 MG/DL (0.55-1.30); POTASSIUM 3.6 MMOL/L (3.5-5.1); SODIUM 139 MMOL/L (136-145)
--- NOTE | 2018-12-25 08:35 | General Progress Note ---
Assessment/Plan Problem List: (1) Respiratory failure with hypoxia ICD Codes: J96.91 - Respiratory failure, unspecified with hypoxia SNOMED: 98933328909634446 Qualifiers: Qualified Codes: J96.01 - Acute respiratory failure with hypoxia (2) Atrial fibrillation with rapid ventricular response ICD Codes: I48.91 - Unspecified atrial fibrillation SNOMED: 683940923896138, 951457792 (3) Severe anemia ICD Codes: D64.9 - Anemia, unspecified SNOMED: 893769657 (4) ATN (acute tubular necrosis) ICD Codes: N17.0 - Acute kidney failure with tubular necrosis SNOMED: 61165820 (5) DM (diabetes mellitus) ICD Codes: E11.9 - Type 2 diabetes mellitus without complications SNOMED: 88191337 Assessment/Plan vent transfuse prn cardio heme eval f/u cbc bmp am aru eval Subjective Constitutional: Reports: weakness Allergies: Coded Allergies: No Known Allergies (Unverified , 12/15/18) All Systems: reviewed and negative except above Subjective o2nc calm in room Objective Last 24 Hour Vital Signs Date Time Temp Pulse Resp B/P (MAP) Pulse Ox O2 Delivery O2 Flow Rate FiO2 12/25/18 04:00 3.0 12/25/18 04:00 Nasal Cannula 3.0 12/25/18 04:00 98.3 66 20 112/61 (78) 100 12/25/18 03:55 69 12/25/18 00:00 Nasal Cannula 3.0 12/25/18 00:00 85 12/25/18 00:00 3.0 12/25/18 00:00 97.7 72 20 138/72 (94) 98 12/24/18 23:51 70 12/24/18 23:45 67 22 140/73 (95) 98 12/24/18 23:00 68 20 131/70 (90) 100 12/24/18 22:00 76 22 130/67 (88) 100 12/24/18 21:00 98.4 76 26 155/83 (107) 100 12/24/18 20:42 80 137/70 12/24/18 20:00 Nasal Cannula 3.0 32 12/24/18 20:00 77 12/24/18 20:00 Nasal Cannula 3.0 12/24/18 20:00 78 22 137/70 (92) 100 12/24/18 20:00 93 Nasal Cannula 3.0 32 12/24/18 20:00 3.0 12/24/18 19:00 79 23 162/84 (110) 100 12/24/18 18:00 78 22 160/79 (106) 99 12/24/18 17:00 77 22 143/78 (99) 100 12/24/18 16:00 84 12/24/18 16:00 97.6 70 21 148/72 (97) 100 12/24/18 16:00 Nasal Cannula 3.0 12/24/18 16:00 3.0 12/24/18 15:00 74 23 145/77 (99) 100 12/24/18 14:00 71 21 148/77 (100) 100 12/24/18 13:00 72 21 147/71 (96) 100 12/24/18 12:00 98.9 70 20 146/70 (95) 100 12/24/18 12:00 69 12/24/18 12:00 Nasal Cannula 3.0 12/24/18 12:00 3.0 12/24/18 11:00 69 20 151/77 (101) 100 12/24/18 10:00 74 22 137/77 (97) 100 12/24/18 09:00 88 23 157/78 (104) 100 12/24/18 08:50 Nasal Cannula 3.0 32 12/24/18 08:50 94 Nasal Cannula 3.0 12/24/18 08:41 82 12/24/18 08:41 85 161/63 Intake and Output 12/24/18 12/25/18 19:00 07:00 Intake Total 650 ml 562.5 ml Output Total 245 ml 750 ml Balance 405 ml -187.5 ml IV Total 650 ml 562.5 ml Output Urine Total 245 ml 750 ml # Bowel Movements 5 Laboratory Tests 12/24/18 09:00: Arterial Blood pH 7.470H, Arterial Blood Partial Pressure CO2 29.7L, Arterial Blood Partial Pressure O2 65.5L, Arterial Blood HCO3 21.1L, Arterial Blood Oxygen Saturation 92.7L, Arterial Blood Base Excess -1.8, Remberto Test Positive 12/25/18 07:55: White Blood Count 9.1, Red Blood Count 3.44L, Hemoglobin 10.0L, Hematocrit 30.9L , Mean Corpuscular Volume 90, Mean Corpuscular Hemoglobin 29.1, Mean Corpuscular Hemoglobin Concent 32.4, Red Cell Distribution Width 16.4H, Platelet Count 105L, Mean Platelet Volume 6.7, Neutrophils (%) (Auto) 74.6, Lymphocytes (%) (Auto) 18.8L, Monocytes (%) (Auto) 5.3, Eosinophils (%) (Auto) 0.9, Basophils (%) (Auto) 0.3, Sodium Level [Pending], Potassium Level [Pending] , Chloride Level [Pending], Carbon Dioxide Level [Pending], Blood Urea Nitrogen [Pending], Creatinine [Pending], Estimat Glomerular Filtration Rate [Pending], Glucose Level [Pending], Calcium Level [Pending], Total Bilirubin [Pending], Aspartate Amino Transf (AST/SGOT) [Pending], Alanine Aminotransferase (ALT/SGPT ) [Pending], Alkaline Phosphatase [Pending], Total Protein [Pending], Albumin [ Pending], Globulin [Pending] Height (Feet): 5 Height (Inches): 6.00 Weight (Pounds): 116 General Appearance: lethargic EENT: normal ENT inspection Neck: normal alignment Cardiovascular: normal peripheral pulses, normal rate, regular rhythm Respiratory/Chest: chest wall non-tender, decreased breath sounds Abdomen: normal bowel sounds, non tender, soft Extremities: normal inspection Edema: no edema noted Arm (L), no edema noted Arm (R), no edema noted Leg (L), no edema noted Leg (R), no edema noted Pedal (L), no edema noted Pedal (R), no edema noted Generalized Neurologic: responsive, motor weakness Skin: normal pigmentation, warm/dry Landry Green DO Dec 25, 2018 08:35
[2018-12-25] MEDS: Pantoprazole Inj IV SCH (09:17)
--- NOTE | 2018-12-25 10:28 | NUR ---
RD ASSESSMENT & RECOMMENDATIONS SEE CARE ACTIVITY FOR COMPLETE ASSESSMENT DAILY ESTIMATED NEEDS: Needs based on underweight 52kg 30-35 kcals/kg 5205-1169 total kcals 1-1.5 g protein/kg 52-78 g total protein 25-30 mL/kg 5580-6236 total fluid mLs NUTRITION DIAGNOSIS: 1) Swallowing difficulty r/t respiratory status as evidenced by pt now now extubated, seen by DRY KILN BURNER w/ rec for pureed moist, NTL. 2) Increased kcal and protein needs r/t underweight status as evidenced by pt is 74% of [place] Body Weight, underweight per guidelines, presents w/ generalized moderate to severe wasting. CURRENT DIET:CCHO MED, Pureed Moist, NTL PO DIET RECOMMENDATIONS: REGULAR/ texture per DRY KILN BURNER + Ensure Enlive BID in b/w meals ADDITIONAL RECOMMENDATIONS: 1) Obtain calibrated bed scale wts, weekly wts -> Pt is underweight 2) Monitor PO intake closely 3) Add Ensure Enlive BID in b/w meals (350kcal/20g prot per bottle) 4) Check lytes daily, replete as needed (low mag) .
--- NOTE | 2018-12-25 14:45 | Surgery Progress Note ---
Surgery Progress Note Subjective Additional Comments much improved. out of ICU. ambulatory. comfortable. no complaints. Objective Last 24 Hour Vital Signs Date Time Temp Pulse Resp B/P (MAP) Pulse Ox O2 Delivery O2 Flow Rate FiO2 12/25/18 12:00 3.0 12/25/18 12:00 98.3 63 23 130/62 (84) 12/25/18 11:34 64 12/25/18 09:16 75 133/67 12/25/18 09:16 75 12/25/18 09:15 75 12/25/18 09:12 72 20 133/67 (89) 98 12/25/18 08:00 97.2 72 142/78 (99) 12/25/18 08:00 Nasal Cannula 3.0 12/25/18 08:00 3.0 12/25/18 07:36 61 12/25/18 04:00 3.0 12/25/18 04:00 Nasal Cannula 3.0 12/25/18 04:00 98.3 66 20 112/61 (78) 100 12/25/18 03:55 69 12/25/18 00:00 Nasal Cannula 3.0 12/25/18 00:00 85 12/25/18 00:00 3.0 12/25/18 00:00 97.7 72 20 138/72 (94) 98 12/24/18 23:51 70 12/24/18 23:45 67 22 140/73 (95) 98 12/24/18 23:00 68 20 131/70 (90) 100 12/24/18 22:00 76 22 130/67 (88) 100 12/24/18 21:00 98.4 76 26 155/83 (107) 100 12/24/18 20:42 80 137/70 12/24/18 20:00 Nasal Cannula 3.0 32 12/24/18 20:00 77 12/24/18 20:00 Nasal Cannula 3.0 12/24/18 20:00 78 22 137/70 (92) 100 12/24/18 20:00 93 Nasal Cannula 3.0 32 12/24/18 20:00 3.0 12/24/18 19:00 79 23 162/84 (110) 100 12/24/18 18:00 78 22 160/79 (106) 99 12/24/18 17:00 77 22 143/78 (99) 100 12/24/18 16:00 84 12/24/18 16:00 97.6 70 21 148/72 (97) 100 12/24/18 16:00 Nasal Cannula 3.0 12/24/18 16:00 3.0 12/24/18 15:00 74 23 145/77 (99) 100 I&O Intake and Output 12/24/18 12/25/18 19:00 07:00 Intake Total 650 ml 562.5 ml Output Total 245 ml 750 ml Balance 405 ml -187.5 ml IV Total 650 ml 562.5 ml Output Urine Total 245 ml 750 ml # Bowel Movements 5 Dressing: other Wound: other Drains: none Cardiovascular: RSR Respiratory: clear Abdomen: soft, non-tender, present bowel sounds, non-distended Extremities: no cyanosis Laboratory Tests Test 12/25/18 07:55 White Blood Count 9.1 K/UL (4.8-10.8) Red Blood Count 3.44 M/UL (4.70-6.10) L Hemoglobin 10.0 G/DL (14.2-18.0) L Hematocrit 30.9 % (42.0-52.0) L Mean Corpuscular Volume 90 FL (80-99) Mean Corpuscular Hemoglobin 29.1 PG (27.0-31.0) Mean Corpuscular Hemoglobin Concent 32.4 G/DL (32.0-36.0) Red Cell Distribution Width 16.4 % (11.6-14.8) H Platelet Count 105 K/UL (150-450) L Mean Platelet Volume 6.7 FL (6.5-10.1) Neutrophils (%) (Auto) 74.6 % (45.0-75.0) Lymphocytes (%) (Auto) 18.8 % (20.0-45.0) L Monocytes (%) (Auto) 5.3 % (1.0-10.0) Eosinophils (%) (Auto) 0.9 % (0.0-3.0) Basophils (%) (Auto) 0.3 % (0.0-2.0) Sodium Level 139 MMOL/L (136-145) Potassium Level 3.6 MMOL/L (3.5-5.1) Chloride Level 104 MMOL/L (98-107) Carbon Dioxide Level 26 MMOL/L (21-32) Anion Gap 9 mmol/L (5-15) Blood Urea Nitrogen 11 mg/dL (7-18) Creatinine 0.8 MG/DL (0.55-1.30) Estimat Glomerular Filtration Rate mL/min (>60) Glucose Level 105 MG/DL (74-106) Calcium Level 8.4 MG/DL (8.5-10.1) L Total Bilirubin 0.9 MG/DL (0.2-1.0) Aspartate Amino Transf (AST/SGOT) 27 U/L (15-37) Alanine Aminotransferase (ALT/SGPT) 31 U/L (12-78) Alkaline Phosphatase 471 U/L (46-116) H Total Protein 6.5 G/DL (6.4-8.2) Albumin 2.2 G/DL (3.4-5.0) L Globulin 4.3 g/dL Albumin/Globulin Ratio 0.5 (1.0-2.7) L Plan Problems: (1) Inguinal hernia Assessment & Plan: 78 year old male with massive inguinal hernia with bowel contents. CT with Massive indirect right inguinal hernia, containing the proximal colon and much if not most of the small bowel. No definite evidence of obstruction or strangulation Anasarca, with diffuse extensive bilateral pulmonary edema, bilateral pleural effusions, small amount of free intraperitoneal fluid, and extensive edema of the subcutaneous and mediastinal fat Colonic diverticulosis Diffuse skeletal osteosclerosis Distended bladder Prostatomegaly Large bilateral renal cysts. Calcification in the periventricular right kidney likely represent old involuted calcified cyst Nasogastric tube Incidental finding right lobe liver cyst On exam large inguinal hernia with bowel contents in scrotum not reducible but no signs of obstruction / strangulation. in reviewing CT likely loss of domain given patients body habitus compared to hernia size. patient awake but intubated on vent support. no tenderness but does have discomfort with manipulation. given above no acute surgical intervention planned as this is likely chronic and with loss of domain. unlikely to be incarcerated but will need to keep an eye on it as bowel can obstruction will follow with exams thank you Yordy Tucker Dec 25, 2018 14:45
--- NOTE | 2018-12-25 15:11 | Cardiac Electrophysiology PN ---
Assessment/Plan Assessment/Plan 1. Atrial fibrillation with rapid ventricular response. Precipitated by profound anemia with hemoglobin of 3.5. Echocardiogram showed ejection fraction of 45% with moderate to severe pulmonary hypertension. On Lopressor 100 bid and Dig 0.25 daily Converted to SR on 12/23/18 Off anticoagulations for gastrointestinal bleed and hemoglobin 3.5. 2. Troponin leak due to atrial fib with RVR 3. Hypertension. Continue Metoprolol . 4. Profound anemia, hemoglobin of 3.5. The patient was evaluated by Dr. Caruso and Berkley. S/P EGD by Dr Caruso 12/22/18 gastritis 5. S/P Respiratory failure, only on Nasal cannula 6. Mild azotemia, BUN of 20, creatinine 1.0. DW RN Subjective Subjective Transferrd to [facility]. In SR on Lopressor 100 bid and Digoxin 0.25 daily. RN at bedside. Objective Last 24 Hour Vital Signs Date Time Temp Pulse Resp B/P (MAP) Pulse Ox O2 Delivery O2 Flow Rate FiO2 12/25/18 12:00 3.0 12/25/18 12:00 98.3 63 23 130/62 (84) 12/25/18 11:34 64 12/25/18 09:16 75 133/67 12/25/18 09:16 75 12/25/18 09:15 75 12/25/18 09:12 72 20 133/67 (89) 98 12/25/18 08:00 97.2 72 142/78 (99) 12/25/18 08:00 Nasal Cannula 3.0 12/25/18 08:00 3.0 12/25/18 07:36 61 12/25/18 04:00 3.0 12/25/18 04:00 Nasal Cannula 3.0 12/25/18 04:00 98.3 66 20 112/61 (78) 100 12/25/18 03:55 69 12/25/18 00:00 Nasal Cannula 3.0 12/25/18 00:00 85 12/25/18 00:00 3.0 12/25/18 00:00 97.7 72 20 138/72 (94) 98 12/24/18 23:51 70 12/24/18 23:45 67 22 140/73 (95) 98 12/24/18 23:00 68 20 131/70 (90) 100 12/24/18 22:00 76 22 130/67 (88) 100 12/24/18 21:00 98.4 76 26 155/83 (107) 100 12/24/18 20:42 80 137/70 12/24/18 20:00 Nasal Cannula 3.0 32 12/24/18 20:00 77 12/24/18 20:00 Nasal Cannula 3.0 12/24/18 20:00 78 22 137/70 (92) 100 12/24/18 20:00 93 Nasal Cannula 3.0 32 12/24/18 20:00 3.0 12/24/18 19:00 79 23 162/84 (110) 100 12/24/18 18:00 78 22 160/79 (106) 99 12/24/18 17:00 77 22 143/78 (99) 100 12/24/18 16:00 84 12/24/18 16:00 97.6 70 21 148/72 (97) 100 12/24/18 16:00 Nasal Cannula 3.0 12/24/18 16:00 3.0 Intake and Output 12/24/18 12/25/18 19:00 07:00 Intake Total 650 ml 562.5 ml Output Total 245 ml 750 ml Balance 405 ml -187.5 ml IV Total 650 ml 562.5 ml Output Urine Total 245 ml 750 ml # Bowel Movements 5 Laboratory Tests Test 12/25/18 07:55 White Blood Count 9.1 K/UL (4.8-10.8) Red Blood Count 3.44 M/UL (4.70-6.10) L Hemoglobin 10.0 G/DL (14.2-18.0) L Hematocrit 30.9 % (42.0-52.0) L Mean Corpuscular Volume 90 FL (80-99) Mean Corpuscular Hemoglobin 29.1 PG (27.0-31.0) Mean Corpuscular Hemoglobin Concent 32.4 G/DL (32.0-36.0) Red Cell Distribution Width 16.4 % (11.6-14.8) H Platelet Count 105 K/UL (150-450) L Mean Platelet Volume 6.7 FL (6.5-10.1) Neutrophils (%) (Auto) 74.6 % (45.0-75.0) Lymphocytes (%) (Auto) 18.8 % (20.0-45.0) L Monocytes (%) (Auto) 5.3 % (1.0-10.0) Eosinophils (%) (Auto) 0.9 % (0.0-3.0) Basophils (%) (Auto) 0.3 % (0.0-2.0) Sodium Level 139 MMOL/L (136-145) Potassium Level 3.6 MMOL/L (3.5-5.1) Chloride Level 104 MMOL/L (98-107) Carbon Dioxide Level 26 MMOL/L (21-32) Anion Gap 9 mmol/L (5-15) Blood Urea Nitrogen 11 mg/dL (7-18) Creatinine 0.8 MG/DL (0.55-1.30) Estimat Glomerular Filtration Rate mL/min (>60) Glucose Level 105 MG/DL (74-106) Calcium Level 8.4 MG/DL (8.5-10.1) L Total Bilirubin 0.9 MG/DL (0.2-1.0) Aspartate Amino Transf (AST/SGOT) 27 U/L (15-37) Alanine Aminotransferase (ALT/SGPT) 31 U/L (12-78) Alkaline Phosphatase 471 U/L (46-116) H Total Protein 6.5 G/DL (6.4-8.2) Albumin 2.2 G/DL (3.4-5.0) L Globulin 4.3 g/dL Albumin/Globulin Ratio 0.5 (1.0-2.7) L Objective HEAD AND NECK: No JVD LUNGS: Coarse rhonchi. CARDIOVASCULAR:Regular S1 and S2 with no gallop or murmur. Tachycardic. ABDOMEN: Soft.Swollen scrotum EXTREMITIES: No edema. Shantanu Mcmillan MD Dec 25, 2018 15:11
--- NOTE | 2018-12-25 19:25 | NUR ---
HAND-OFF: Report given to SARAI Delacruz.
--- NOTE | 2018-12-25 19:30 | NUR ---
NURSE NOTES: Report received from SARAI Hodges. Pt is lying comfortably in semi-fowlers with no sign of distress. A+Ox4, no pain, no SOB. IV sites are intact, patent, and running fluids at prescribed rate. Respirations are tachy, but even and unlabored on 2 L NC. Bed is at lowest position, brakes engaged, siderails x2, bed alarm on, and call light within reach. Pt is in stable condition; will continue to monitor.
[2018-12-25] MEDS ORDERED: Tubing IV Secondary IV ONE (19:46)
[2018-12-25] MEDS ORDERED: NS 275ml ONE (19:46)
--- NOTE | 2018-12-25 20:30 | NUR ---
NURSE NOTES: Pt has O2 sat of 78% on 2 L NC. Increased nasal cannula to 4 L and patient still has O2 sat of 85%. Pt has some SOB and decreased lung sounds in the bases. Pt temperature is also 102 degrees. Called respiratory therapist who put the patient on venturi mask and O2 sat is now 94%. Administered tylenol for temp. Left message with Dr. Emerson and Dr. Green regarding pt status; awaiting response.
--- NOTE | 2018-12-25 21:42 | General Progress Note ---
Assessment/Plan Assessment/Plan Assessment/Plan Problems: (1) Severe anemia ICD Codes: D64.9 - Anemia, unspecified SNOMED: 099699554 (2) Anemia ICD Codes: D64.9 - Anemia, unspecified SNOMED: 485704688 (3) Elevated LFTs ICD Codes: R94.5 - Abnormal results of liver function studies SNOMED: 663874392, 334115287 (4) Dysphagia ICD Codes: R13.10 - Dysphagia, unspecified SNOMED: 88473433, 958213964 Status: progressing Assessment/Plan s/p EGD SUMMARY OF FINDINGS: Severe gastritis versus portal hypertensive gastropathy versus ischemia, status post biopsy. extubated Speech therapy evaluation reviewed Advance diet per ST Continue on PPI twice a day. Add Carafate. Follow up biopsy results and treat accordingly. restart feeds prn transfusions Electrolyte correction follow labs Subjective Allergies: Coded Allergies: No Known Allergies (Unverified , 12/15/18) Subjective Feels OK no abd pain tolerating PO (+) BM Objective Last 24 Hour Vital Signs Date Time Temp Pulse Resp B/P (MAP) Pulse Ox O2 Delivery O2 Flow Rate FiO2 12/25/18 21:10 110 105/70 12/25/18 16:00 3.0 12/25/18 16:00 97.4 76 22 138/77 (97) 12/25/18 15:56 80 12/25/18 12:00 3.0 12/25/18 12:00 98.3 63 23 130/62 (84) 12/25/18 11:34 64 12/25/18 09:16 75 133/67 12/25/18 09:16 75 12/25/18 09:15 75 12/25/18 09:12 72 20 133/67 (89) 98 12/25/18 08:00 97.2 72 142/78 (99) 12/25/18 08:00 Nasal Cannula 3.0 12/25/18 08:00 3.0 12/25/18 07:36 61 12/25/18 04:00 3.0 12/25/18 04:00 Nasal Cannula 3.0 12/25/18 04:00 98.3 66 20 112/61 (78) 100 12/25/18 03:55 69 12/25/18 00:00 Nasal Cannula 3.0 12/25/18 00:00 85 12/25/18 00:00 3.0 12/25/18 00:00 97.7 72 20 138/72 (94) 98 12/24/18 23:51 70 12/24/18 23:45 67 22 140/73 (95) 98 12/24/18 23:00 68 20 131/70 (90) 100 12/24/18 22:00 76 22 130/67 (88) 100 Intake and Output 12/24/18 12/25/18 19:00 07:00 Intake Total 650 ml 562.5 ml Output Total 245 ml 750 ml Balance 405 ml -187.5 ml IV Total 650 ml 562.5 ml Output Urine Total 245 ml 750 ml # Bowel Movements 5 Laboratory Tests 12/25/18 07:55: White Blood Count 9.1, Red Blood Count 3.44L, Hemoglobin 10.0L, Hematocrit 30.9L , Mean Corpuscular Volume 90, Mean Corpuscular Hemoglobin 29.1, Mean Corpuscular Hemoglobin Concent 32.4, Red Cell Distribution Width 16.4H, Platelet Count 105L, Mean Platelet Volume 6.7, Neutrophils (%) (Auto) 74.6, Lymphocytes (%) (Auto) 18.8L, Monocytes (%) (Auto) 5.3, Eosinophils (%) (Auto) 0.9, Basophils (%) (Auto) 0.3, Sodium Level 139, Potassium Level 3.6, Chloride Level 104, Carbon Dioxide Level 26, Anion Gap 9, Blood Urea Nitrogen 11, Creatinine 0.8, Estimat Glomerular Filtration Rate , Glucose Level 105, Calcium Level 8.4L, Total Bilirubin 0.9, Aspartate Amino Transf (AST/SGOT) 27, Alanine Aminotransferase (ALT/SGPT) 31, Alkaline Phosphatase 471H, Total Protein 6.5, Albumin 2.2L, Globulin 4.3, Albumin/Globulin Ratio 0.5L Height (Feet): 5 Height (Inches): 6.00 Weight (Pounds): 116 Objective WDWN NCAT supple CTA RR Abd soft ND NT no edema Nonfocal Yahaira Nath MD Dec 25, 2018 21:42
--- NOTE | 2018-12-25 22:40 | NUR ---
NURSE NOTES: Dr. Emerson ordered cxr for AM. Dr. Green ordered am labs and transfer to ICU. Pt is stable and has no SOB. Temperature is 99.5 degrees. ABGs WNL. Left message with Dr. Green regarding patient's improved status; awaiting response.
[2018-12-26] VITALS: BP 136/72
--- NOTE | 2018-12-26 00:12 | NUR ---
NURSE NOTES: Pt refusing to go to ICU. Pt stable, temperature of 98.4. No SOB. Pt on 3 L NC with O2 sat of 97%. Nursing building services supervisor aware of patient refusal. Pt will stay in tele and be monitored closely.
--- NOTE | 2018-12-26 00:27 | NUR ---
NURSE NOTES: Left message with Dr. Green about pt condition and refusal to go to ICU. awaiting response.
--- NOTE | 2018-12-26 01:50 | NUR ---
NURSE NOTES: Dr. Green aware of patient staying on 2E.
[2018-12-26 04:00] VITALS: BP 125/69
--- NOTE | 2018-12-26 07:15 | NUR ---
HAND-OFF: Report given to SARAI Hodges. Pt is in stable condition. Plan of care endorsed.
--- NOTE | 2018-12-26 07:15 | NUR ---
NURSE NOTES: I received the patient awake and resting in bed. Patient alert and oriented x4. Patient was assisted to the bathroom. Patient did not display any signs of distress or SOB. Patient sitting at the side of the bed and eating breakfast. NC on the patient. Patient does not display any signs of distress or SOB. Bed in the lowest position, call light within reach and patient reminded to use the call light when assistance is needed.
[2018-12-26 07:50] LABS: MEAN CORPUSCULAR VOLUME 89 FL (80-99); PLATELET COUNT 92 K/UL (150-450); RED BLOOD COUNT 3.13 M/UL (4.70-6.10); RED CELL DISTRIBUTION WIDTH 16.5 % (11.6-14.8); WHITE BLOOD COUNT 14.4 K/UL (4.8-10.8)
[2018-12-26 07:58] LABS: ANION GAP 9 mmol/L (5-15); BLOOD UREA NITROGEN 12 mg/dL (7-18); CALCIUM 8.3 MG/DL (8.5-10.1); CARBON DIOXIDE 26 MMOL/L (21-32); CHLORIDE 105 MMOL/L (98-107); POTASSIUM 3.6 MMOL/L (3.5-5.1); SODIUM 139 MMOL/L (136-145)
[2018-12-26 08:00] VITALS: BP 139/79
--- NOTE | 2018-12-26 08:24 | Pulmonology Progress Note ---
Assessment/Plan Assessment/Plan ASSESSMENT acute respiratory failure requiring intubation, status post extubation 12/23 pulm edema possible PNA, s/p Rx acute anemia requiring blood transfusion- improved atrial fibrillation with rapid ventricular response troponin leak likely due to atrial fibrillation with RVR HTN severe pulmonary hypertension elevated LFT -resolved s/p EGD with biopsy severe gastritis versus portal hypertensive gastropathy versus ischemia status post biopsy dysphagia acute kidney injury inguinal hernia thrombocytopenia protein calorie malnutrition PLAN OF CARE tele supplemental O2 prn to keep pulse ox above 92%, pulmonary toilet. CT scan noted ID recommended to keep off abx; given no fever , no leukocytosis however leukocytosis today, fup with CXR , check UA ? restart abx- per ID repeat swallow eval in am HR controlled with BB and digoxin , off a/coagulation 2 to severe anemia s/p 12/22 upper endoscopy with findings of severe gastritis versus portal hypertensive gastropathy versus ischemia -per GI management PPI fup with biopsy results monitor LFT - down trended hepatitis panel negative HIV nonreactive CT abdomen/ pelvis with massive indirect right inguinal hernia, containing the proximal colon and much of small bowel, anasarca, colonic diverticulosis, prostatomegaly, diffuse extensive bilateral pulmonary edema with bilateral pleural effusion diet was advanced as per ST recs dietary eval re protein supplements cardio follows on Digoxin and metoprolol, off a/coagulation due to severe anemia, in SR ECHO with pEF and evidence of severe pulm HTN per cardio troponin leak was due to A fib with RVR which in turn precipitated by severe anemia monitor renal parameters and lytes ,correct lytes as needed ,avoid nephrotoxic monitor H&H with goal to keep hemoglobin above 7 , remained at baseline heme follows anemia workup consistent with anemia of chronic disease due to underlying chronic medical issues Epogen or iron not particularly indicated. leukopenia potentially from infection stool OB+ x2 CEA with mild elevation -6.2 ? colonoscopy as per GI description surgery follows for large inguinal hernia with bowel contents in scrotum, per surgeon: on exam not reducible, but no signs of obstruction / strangulation; no tenderness but has discomfort with manipulation no acute surgical intervention planned as this is likely chronic ; unlikely to be incarcerated , but will need to keep an eye on it as bowel can get obstructed supportive care case discussed and evaluated by supervising physician Subjective Allergies: Coded Allergies: No Known Allergies (Unverified , 12/15/18) Subjective on tele s/p extubation 12/23 pulse ox stable on 3L O2 via NC no resp distress leukocytosis today, but afebrile Objective Last 24 Hour Vital Signs Date Time Temp Pulse Resp B/P (MAP) Pulse Ox O2 Delivery O2 Flow Rate FiO2 12/26/18 04:00 3.0 12/26/18 04:00 98.1 76 20 125/69 (87) 94 12/26/18 03:43 95 12/26/18 00:00 98.5 80 20 136/72 (93) 12/25/18 21:41 101.5 12/25/18 21:10 110 105/70 12/25/18 21:00 Nasal Cannula 3.0 Venturi Mask 12/25/18 20:55 90 Nasal Cannula 3.0 32 12/25/18 20:55 Nasal Cannula 3.0 32 12/25/18 20:00 14.0 50 12/25/18 20:00 98 12/25/18 20:00 102.0 110 25 104/75 (85) 12/25/18 16:00 3.0 12/25/18 16:00 97.4 76 22 138/77 (97) 12/25/18 15:56 80 12/25/18 12:00 3.0 12/25/18 12:00 98.3 63 23 130/62 (84) 12/25/18 11:34 64 12/25/18 09:16 75 133/67 12/25/18 09:16 75 12/25/18 09:15 75 12/25/18 09:12 72 20 133/67 (89) 98 Intake and Output 12/25/18 12/26/18 18:59 06:59 Intake Total 550 ml 50 ml Output Total 1000 ml Balance 550 ml -950 ml IV Total 550 ml 50 ml Output Urine Total 1000 ml # Bowel Movements 1 1 Objective General Appearance: cachetic male in NAD HEENT: normocephalic, atraumatic, anicteric, mucous membranes moist Respiratory/Chest: chest wall non-tender, lungs clear, no respiratory distress , no accessory muscle use Cardiovascular: normal peripheral pulses, normal rate - SR on tele , regular rhythm Abdomen: normal bowel sounds, soft, non tender, non distended, budging R inguinal hernia Extremities: no edema Neurologic/Psychiatric: no motor/sensory deficits, alert, oriented x 3, responsive Musculoskeletal: atrophy - BLE Laboratory Tests 12/25/18 22:55: Arterial Blood pH 7.478H, Arterial Blood Partial Pressure CO2 29.7L, Arterial Blood Partial Pressure O2 81.9, Arterial Blood HCO3 21.5L, Arterial Blood Oxygen Saturation 95.8, Arterial Blood Base Excess -1.5, Remberto Test Positive 12/26/18 07:04: White Blood Count 14.4#H, Red Blood Count 3.13L, Hemoglobin 9.0L, Hematocrit 28.0L, Mean Corpuscular Volume 89, Mean Corpuscular Hemoglobin 28.6, Mean Corpuscular Hemoglobin Concent 32.0, Red Cell Distribution Width 16.5H, Platelet Count 92L, Mean Platelet Volume 7.6, Neutrophils (%) (Auto) , Lymphocytes (%) (Auto) , Monocytes (%) (Auto) , Eosinophils (%) (Auto) , Basophils (%) (Auto) , Neutrophils % (Manual) [Pending], Lymphocytes % (Manual) [Pending], Platelet Estimate [Pending], Platelet Morphology [Pending], Sodium Level 139, Potassium Level 3.6, Chloride Level 105, Carbon Dioxide Level 26, Anion Gap 9, Blood Urea Nitrogen 12, Creatinine 1.0, Estimat Glomerular Filtration Rate , Glucose Level 113H, Calcium Level 8.3L Current Medications Medications (Trade) Dose Ordered Sig/Brock Route PRN Reason Start Time Stop Time Status Last Admin Dose Admin Acetaminophen (Tylenol) 650 mg Q4H PRN ORAL fever 12/25/18 03:15 01/15/19 07:14 12/25/18 21:11 Albuterol/ Ipratropium (Albuterol/ Ipratropium) 3 ml Q4H PRN HHN Shortness of Breath 12/25/18 11:30 12/30/18 11:29 Dextrose 1,000 ml @ 50 mls/hr Q20H IV 12/24/18 23:45 01/21/19 10:14 12/25/18 21:13 Dextrose (Dextrose 50%) 25 ml Q30M PRN IV Hypoglycemia 12/24/18 23:45 01/15/19 07:14 Digoxin (Lanoxin) 0.25 mg DAILY ORAL 12/25/18 09:00 01/18/19 08:59 12/25/18 09:16 Metoprolol Tartrate (Lopressor) 100 mg EVERY 12 HOURS NG 12/25/18 09:00 01/17/19 08:59 12/25/18 21:10 Pantoprazole (Protonix) 40 mg DAILY IV 12/25/18 09:00 01/17/19 08:59 12/25/18 09:17 Dian Martinez NP Dec 26, 2018 08:24
[2018-12-26] MEDS: Pantoprazole Inj IV SCH (08:44)
--- NOTE | 2018-12-26 08:49 | General Progress Note ---
Assessment/Plan Problem List: (1) Respiratory failure with hypoxia ICD Codes: J96.91 - Respiratory failure, unspecified with hypoxia SNOMED: 34456477741087457 Qualifiers: Qualified Codes: J96.01 - Acute respiratory failure with hypoxia (2) Atrial fibrillation with rapid ventricular response ICD Codes: I48.91 - Unspecified atrial fibrillation SNOMED: 683974829024786, 870959198 (3) Severe anemia ICD Codes: D64.9 - Anemia, unspecified SNOMED: 986850415 (4) ATN (acute tubular necrosis) ICD Codes: N17.0 - Acute kidney failure with tubular necrosis SNOMED: 51066945 (5) DM (diabetes mellitus) ICD Codes: E11.9 - Type 2 diabetes mellitus without complications SNOMED: 53676709 (6) Fever ICD Codes: R50.9 - Fever, unspecified SNOMED: 958263484 Status: unchanged Assessment/Plan vent transfuse prn cardio heme eval f/u cbc bmp am id eval aru eval Subjective Constitutional: Reports: weakness Allergies: Coded Allergies: No Known Allergies (Unverified , 12/15/18) All Systems: reviewed and negative except above Subjective o2nc sleepy Objective Last 24 Hour Vital Signs Date Time Temp Pulse Resp B/P (MAP) Pulse Ox O2 Delivery O2 Flow Rate FiO2 12/26/18 08:44 65 139/79 12/26/18 08:44 75 12/26/18 08:00 97.4 65 20 139/79 (99) 98 12/26/18 04:00 3.0 12/26/18 04:00 98.1 76 20 125/69 (87) 94 12/26/18 03:43 95 12/26/18 00:00 98.5 80 20 136/72 (93) 12/25/18 21:41 101.5 12/25/18 21:10 110 105/70 12/25/18 21:00 Nasal Cannula 3.0 Venturi Mask 12/25/18 20:55 90 Nasal Cannula 3.0 32 12/25/18 20:55 Nasal Cannula 3.0 32 12/25/18 20:00 14.0 50 12/25/18 20:00 98 12/25/18 20:00 102.0 110 25 104/75 (85) 12/25/18 16:00 3.0 12/25/18 16:00 97.4 76 22 138/77 (97) 12/25/18 15:56 80 12/25/18 12:00 3.0 12/25/18 12:00 98.3 63 23 130/62 (84) 12/25/18 11:34 64 12/25/18 09:16 75 133/67 12/25/18 09:16 75 12/25/18 09:15 75 12/25/18 09:12 72 20 133/67 (89) 98 Intake and Output 12/25/18 12/26/18 18:59 06:59 Intake Total 550 ml 50 ml Output Total 1000 ml Balance 550 ml -950 ml IV Total 550 ml 50 ml Output Urine Total 1000 ml # Bowel Movements 1 1 Laboratory Tests 12/25/18 22:55: Arterial Blood pH 7.478H, Arterial Blood Partial Pressure CO2 29.7L, Arterial Blood Partial Pressure O2 81.9, Arterial Blood HCO3 21.5L, Arterial Blood Oxygen Saturation 95.8, Arterial Blood Base Excess -1.5, Remberto Test Positive 12/26/18 07:04: White Blood Count 14.4#H, Red Blood Count 3.13L, Hemoglobin 9.0L, Hematocrit 28.0L, Mean Corpuscular Volume 89, Mean Corpuscular Hemoglobin 28.6, Mean Corpuscular Hemoglobin Concent 32.0, Red Cell Distribution Width 16.5H, Platelet Count 92L, Mean Platelet Volume 7.6, Neutrophils (%) (Auto) , Lymphocytes (%) (Auto) , Monocytes (%) (Auto) , Eosinophils (%) (Auto) , Basophils (%) (Auto) , Neutrophils % (Manual) [Pending], Lymphocytes % (Manual) [Pending], Platelet Estimate [Pending], Platelet Morphology [Pending], Sodium Level 139, Potassium Level 3.6, Chloride Level 105, Carbon Dioxide Level 26, Anion Gap 9, Blood Urea Nitrogen 12, Creatinine 1.0, Estimat Glomerular Filtration Rate , Glucose Level 113H, Calcium Level 8.3L Height (Feet): 5 Height (Inches): 6.00 Weight (Pounds): 120 General Appearance: lethargic EENT: normal ENT inspection Neck: normal alignment Cardiovascular: normal peripheral pulses, normal rate, regular rhythm Respiratory/Chest: chest wall non-tender, lungs clear, normal breath sounds Abdomen: normal bowel sounds, non tender, soft Extremities: normal inspection Edema: no edema noted Arm (L), no edema noted Arm (R), no edema noted Leg (L), no edema noted Leg (R), no edema noted Pedal (L), no edema noted Pedal (R), no edema noted Generalized Neurologic: motor weakness Skin: normal pigmentation, warm/dry Landry Green DO Dec 26, 2018 08:49
--- NOTE | 2018-12-26 09:54 | Diagnostic Imaging Report ---
EXAM: XR Chest, 2 Views CLINICAL HISTORY: SOB TECHNIQUE: Frontal and lateral views of the chest. COMPARISON: Chest x-ray, 12/24/18 742 FINDINGS: Lungs: Diffuse bilateral airspace and interstitial opacities slightly improved. Pleural space: Small right pleural effusion and moderate left pleural effusion, similar to slightly improved. No pneumothorax. Heart: Mild cardiomegaly. Mediastinum: Unremarkable. Bones/joints: Degenerative changes of the spine. IMPRESSION: 1. Diffuse bilateral airspace and interstitial opacities slightly improved. 2. Small right pleural effusion and moderate left pleural effusion, similar to slightly improved.
[2018-12-26] MEDS: Albuterol/Ipratropium 3ml neb HHN PRN (10:59)
[2018-12-26 12:00] VITALS: BP 103/46
--- NOTE | 2018-12-26 14:57 | Surgery Progress Note ---
Surgery Progress Note Subjective Additional Comments leukocytosis today. has been off abx and doing well but now with wbc 14k. cxr with improvement. pending UA Objective Last 24 Hour Vital Signs Date Time Temp Pulse Resp B/P (MAP) Pulse Ox O2 Delivery O2 Flow Rate FiO2 12/26/18 12:00 97.9 73 20 103/46 (65) 94 12/26/18 12:00 15.0 12/26/18 11:34 57 12/26/18 11:12 86 18 92 Venturi Mask 14.0 55 12/26/18 11:00 85 18 88 Venturi Mask 14.0 55 12/26/18 09:52 73 18 Nasal Cannula 3.0 32 12/26/18 09:52 Nasal Cannula 3.0 32 12/26/18 09:52 100 Nasal Cannula 3.0 32 12/26/18 09:00 Nasal Cannula 3.0 Nasal Cannula 3.0 12/26/18 08:44 65 139/79 12/26/18 08:44 75 12/26/18 08:00 97.4 65 20 139/79 (99) 98 12/26/18 08:00 3.0 12/26/18 07:34 78 12/26/18 04:00 3.0 12/26/18 04:00 98.1 76 20 125/69 (87) 94 12/26/18 03:43 95 12/26/18 00:00 98.5 80 20 136/72 (93) 12/25/18 21:41 101.5 12/25/18 21:10 110 105/70 12/25/18 21:00 Nasal Cannula 3.0 Venturi Mask 12/25/18 20:55 90 Nasal Cannula 3.0 32 12/25/18 20:55 Nasal Cannula 3.0 32 12/25/18 20:00 14.0 50 12/25/18 20:00 98 12/25/18 20:00 102.0 110 25 104/75 (85) 12/25/18 16:00 3.0 12/25/18 16:00 97.4 76 22 138/77 (97) 12/25/18 15:56 80 I&O Intake and Output 12/25/18 12/26/18 19:00 07:00 Intake Total 600 ml Output Total 1000 ml Balance 600 ml -1000 ml IV Total 600 ml Output Urine Total 1000 ml # Bowel Movements 1 1 Drains: none Cardiovascular: RSR Respiratory: clear Abdomen: soft, non-tender, present bowel sounds, non-distended Extremities: no cyanosis Laboratory Tests Test 12/25/18 22:55 12/26/18 07:04 Arterial Blood pH 7.478 (7.350-7.450) Arterial Blood Partial Pressure CO2 29.7 mmHg (35.0-45.0) L Arterial Blood Partial Pressure O2 81.9 mmHg (75.0-100.0) Arterial Blood HCO3 21.5 mmol/L (22.0-26.0) L Arterial Blood Oxygen Saturation 95.8 % (95-100) Arterial Blood Base Excess -1.5 (-2-2) Remberto Test Positive White Blood Count 14.4 K/UL (4.8-10.8) #H Red Blood Count 3.13 M/UL (4.70-6.10) L Hemoglobin 9.0 G/DL (14.2-18.0) L Hematocrit 28.0 % (42.0-52.0) L Mean Corpuscular Volume 89 FL (80-99) Mean Corpuscular Hemoglobin 28.6 PG (27.0-31.0) Mean Corpuscular Hemoglobin Concent 32.0 G/DL (32.0-36.0) Red Cell Distribution Width 16.5 % (11.6-14.8) H Platelet Count 92 K/UL (150-450) L Mean Platelet Volume 7.6 FL (6.5-10.1) Neutrophils (%) (Auto) % (45.0-75.0) Lymphocytes (%) (Auto) % (20.0-45.0) Monocytes (%) (Auto) % (1.0-10.0) Eosinophils (%) (Auto) % (0.0-3.0) Basophils (%) (Auto) % (0.0-2.0) Differential Total Cells Counted 100 Neutrophils % (Manual) 83 % (45-75) H Lymphocytes % (Manual) 7 % (20-45) L Monocytes % (Manual) 3 % (1-10) Eosinophils % (Manual) 0 % (0-3) Basophils % (Manual) 0 % (0-2) Band Neutrophils 7 % (0-8) Platelet Estimate Decreased L Platelet Morphology Normal Anisocytosis 1+ Sodium Level 139 MMOL/L (136-145) Potassium Level 3.6 MMOL/L (3.5-5.1) Chloride Level 105 MMOL/L (98-107) Carbon Dioxide Level 26 MMOL/L (21-32) Anion Gap 9 mmol/L (5-15) Blood Urea Nitrogen 12 mg/dL (7-18) Creatinine 1.0 MG/DL (0.55-1.30) Estimat Glomerular Filtration Rate mL/min (>60) Glucose Level 113 MG/DL (74-106) H Calcium Level 8.3 MG/DL (8.5-10.1) L Plan Problems: (1) Inguinal hernia Assessment & Plan: 78 year old male with massive inguinal hernia with bowel contents. CT with Massive indirect right inguinal hernia, containing the proximal colon and much if not most of the small bowel. No definite evidence of obstruction or strangulation Anasarca, with diffuse extensive bilateral pulmonary edema, bilateral pleural effusions, small amount of free intraperitoneal fluid, and extensive edema of the subcutaneous and mediastinal fat Colonic diverticulosis Diffuse skeletal osteosclerosis Distended bladder Prostatomegaly Large bilateral renal cysts. Calcification in the periventricular right kidney likely represent old involuted calcified cyst Nasogastric tube Incidental finding right lobe liver cyst On exam large inguinal hernia with bowel contents in scrotum not reducible but no signs of obstruction / strangulation. in reviewing CT likely loss of domain given patients body habitus compared to hernia size. patient awake but intubated on vent support. no tenderness but does have discomfort with manipulation. given above no acute surgical intervention planned as this is likely chronic and with loss of domain. unlikely to be incarcerated but will need to keep an eye on it as bowel can obstruction will follow with exams leukocytosis CXR improved pending UA repeat AM labs Abx as per ID thank you Yordy Tucker Dec 26, 2018 14:57
[2018-12-26 15:26] LABS: APPEARANCE,URINE CLEAR; BILIRUBIN, URINE NEGATIVE (NEGATIVE); COLOR,URINE PALE YELLOW; GLUCOSE, URINE (UA) NEGATIVE (NEGATIVE); KETONES,URINE NEGATIVE (NEGATIVE); LEUKOCYTE ESTERASE ,URINE 3+ (NEGATIVE); NITRITE,URINE NEGATIVE (NEGATIVE); PH,URINE 5 (4.5-8.0); PROTEIN,URINE 2+ (NEGATIVE); UROBILINOGEN,URINE NORMAL MG/DL (0.0-1.0)
[2018-12-26 15:56] VITALS: BP 126/58
--- NOTE | 2018-12-26 16:01 | NUR ---
PT Note PT akash completed, treatment initiated. Patient was able to sit at the EOB but tends to lose balance to the left. Also, patient's O2 sat was found to be 81-82% while seated at the EOB while on O2 per nasal cannula. No SOB noted. Patient can benefit from PT services to increase his muscle strength and balance to improve his functional mobility. Addendum: 12/26/18 at 1602 by CHAIM SURESH PT Amended: Links added.
--- NOTE | 2018-12-26 19:17 | General Progress Note ---
Assessment/Plan Assessment/Plan Assessment/Plan Problems: (1) Severe anemia ICD Codes: D64.9 - Anemia, unspecified SNOMED: 374814383 (2) Anemia ICD Codes: D64.9 - Anemia, unspecified SNOMED: 220163537 (3) Elevated LFTs ICD Codes: R94.5 - Abnormal results of liver function studies SNOMED: 316965467, 416572670 (4) Dysphagia ICD Codes: R13.10 - Dysphagia, unspecified SNOMED: 31962293, 220057076 Status: progressing Assessment/Plan s/p EGD SUMMARY OF FINDINGS: Severe gastritis versus portal hypertensive gastropathy versus ischemia, status post biopsy. Diet per ST Continue on PPI twice a day. Carafate. Follow up biopsy results and treat accordingly. prn transfusions Electrolyte correction follow labs Subjective Allergies: Coded Allergies: No Known Allergies (Unverified , 12/15/18) Subjective d/w RN some distress overnight better this am tolerating PO Objective Last 24 Hour Vital Signs Date Time Temp Pulse Resp B/P (MAP) Pulse Ox O2 Delivery O2 Flow Rate FiO2 12/26/18 16:47 97.7 12/26/18 16:00 15.0 12/26/18 15:56 100.0 95 18 126/58 (80) 95 12/26/18 15:47 94 12/26/18 12:00 97.9 73 20 103/46 (65) 94 12/26/18 12:00 15.0 12/26/18 11:34 57 12/26/18 11:12 86 18 92 Venturi Mask 14.0 55 12/26/18 11:00 85 18 88 Venturi Mask 14.0 55 12/26/18 09:52 73 18 Nasal Cannula 3.0 32 12/26/18 09:52 Nasal Cannula 3.0 32 12/26/18 09:52 100 Nasal Cannula 3.0 32 12/26/18 09:00 Nasal Cannula 3.0 Nasal Cannula 3.0 12/26/18 08:44 65 139/79 12/26/18 08:44 75 12/26/18 08:00 97.4 65 20 139/79 (99) 98 12/26/18 08:00 3.0 12/26/18 07:34 78 12/26/18 04:00 3.0 12/26/18 04:00 98.1 76 20 125/69 (87) 94 12/26/18 03:43 95 12/26/18 00:00 98.5 80 20 136/72 (93) 12/25/18 21:10 110 105/70 12/25/18 21:00 Nasal Cannula 3.0 Venturi Mask 12/25/18 20:55 90 Nasal Cannula 3.0 32 12/25/18 20:55 Nasal Cannula 3.0 32 12/25/18 20:00 14.0 50 12/25/18 20:00 98 12/25/18 20:00 102.0 110 25 104/75 (85) Intake and Output 12/25/18 12/26/18 19:00 07:00 Intake Total 600 ml Output Total 1000 ml Balance 600 ml -1000 ml IV Total 600 ml Output Urine Total 1000 ml # Bowel Movements 1 1 Laboratory Tests 12/25/18 22:55: Arterial Blood pH 7.478H, Arterial Blood Partial Pressure CO2 29.7L, Arterial Blood Partial Pressure O2 81.9, Arterial Blood HCO3 21.5L, Arterial Blood Oxygen Saturation 95.8, Arterial Blood Base Excess -1.5, Remberto Test Positive 12/26/18 07:04: White Blood Count 14.4#H, Red Blood Count 3.13L, Hemoglobin 9.0L, Hematocrit 28.0L, Mean Corpuscular Volume 89, Mean Corpuscular Hemoglobin 28.6, Mean Corpuscular Hemoglobin Concent 32.0, Red Cell Distribution Width 16.5H, Platelet Count 92L, Mean Platelet Volume 7.6, Neutrophils (%) (Auto) , Lymphocytes (%) (Auto) , Monocytes (%) (Auto) , Eosinophils (%) (Auto) , Basophils (%) (Auto) , Differential Total Cells Counted 100, Neutrophils % ( Manual) 83H, Lymphocytes % (Manual) 7L, Monocytes % (Manual) 3, Eosinophils % ( Manual) 0, Basophils % (Manual) 0, Band Neutrophils 7, Platelet Estimate DecreasedL, Platelet Morphology Normal, Anisocytosis 1+, Sodium Level 139, Potassium Level 3.6, Chloride Level 105, Carbon Dioxide Level 26, Anion Gap 9, Blood Urea Nitrogen 12, Creatinine 1.0, Estimat Glomerular Filtration Rate , Glucose Level 113H, Calcium Level 8.3L 3/10/19 15:12: Urine Color Pale yellow, Urine Appearance Clear, Urine pH 5, Urine Specific [place] 1.015, Urine Protein 2+H, Urine Glucose (UA) Negative, Urine Ketones Negative, Urine Blood 1+H, Urine Nitrite Negative, Urine Bilirubin Negative, Urine Urobilinogen Normal, Urine Leukocyte Esterase 3+H, Urine RBC 2-4H, Urine WBC 5-10H, Urine Squamous Epithelial Cells Few, Urine Bacteria Few, Urine Yeast ModerateH Height (Feet): 5 Height (Inches): 6.00 Weight (Pounds): 120 Objective WDWN NCAT supple CTA RR Abd soft ND NT no edema Nonfocal Yahaira Nath MD Dec 26, 2018 19:17
--- NOTE | 2018-12-26 19:35 | NUR ---
HAND-OFF: Report given to SARAI Tineo.
--- NOTE | 2018-12-26 19:40 | NUR ---
NURSE NOTES: Received report from Tracie. patient is AAOx4. Patient is SPO2 is 97% on 4L NC. Patient denies pain. patient is breathing even and unlabored. IV site is intact, patent and asymptomatic. Bed is on lowest position, x2 side rails. up, and call light within reach. Will follow up plan of care.
[2018-12-26 20:00] VITALS: BP 119/54
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
--- NOTE | 2018-12-26 23:22 | NUR ---
HAND-OFF: Report given to SARAI Jeff. Patient is resting in bed. Endorsed plan of care. Still need c diff stool.
[2018-12-27] VITALS (24 sets, daily range): BP systolic 80–122; BP diastolic 39–70
[2018-12-27] MEDS: Albuterol/Ipratropium 3ml neb HHN PRN (03:21)
--- NOTE | 2018-12-27 03:58 | NUR ---
NURSE NOTES: 0340 Pt O2 Saturation 70-87% on 2L. Change to 100% non rebreather mask and respiratory treatment. ABGs done 7.44PH CO2 28.6 Po2 46.8 Bicarb 19. VS T 99 BP 120/70 SpO2 88-100% on non rebreather mask. At 3:45 Pt went to rapid Afib in the 150's. Dr Emerson was called and orders given to transfer patient to ICU.
[2018-12-27] MEDS ORDERED: dilTIAZem HCl 25mg/5ml Inj IVP ONE (04:00)
--- NOTE | 2018-12-27 04:30 | NUR ---
NURSE NOTES: Admitted a transfer from TELE.R/T HYPOTENSION and AT-FIB With RVR Awake alert oriented.See Phy/Neuro assessment.On monitor shows At-Fib.rate uncont.Cardizem 10mg IV Admin as ordered.IV D5w started.V/S monitor,Cont.Plan of care. made aware of pt.Transfer.
[2018-12-27 06:06] LABS: HEMATOCRIT 23.8 % (42.0-52.0); HEMOGLOBIN 7.9 G/DL (14.2-18.0); MEAN CORPUSCULAR VOLUME 89 FL (80-99); PLATELET COUNT 59 K/UL (150-450); RED BLOOD COUNT 2.68 M/UL (4.70-6.10); RED CELL DISTRIBUTION WIDTH 16.6 % (11.6-14.8); WHITE BLOOD COUNT 11.7 K/UL (4.8-10.8)
[2018-12-27 06:27] LABS: ANION GAP 7 mmol/L (5-15); BLOOD UREA NITROGEN 18 mg/dL (7-18); CARBON DIOXIDE 24 MMOL/L (21-32); CHLORIDE 105 MMOL/L (98-107); CREATININE 1.1 MG/DL (0.55-1.30); POTASSIUM 3.4 MMOL/L (3.5-5.1); SODIUM 136 MMOL/L (136-145)
--- NOTE | 2018-12-27 07:00 | NUR ---
Received Patient on BIPAP 09/22 PS +7 BUR 16 FIO2 90%. Patient alert and awake and comfortable in bed. Patient tolerating bipap well and says he'd eventually like to be taken off. Bipap plugged into red outlet. Alarms on and audible. Will continue to monitor.
--- NOTE | 2018-12-27 07:20 | NUR ---
Patient taken off bipap placed on venti mask 55%fio2 14LPM.
--- NOTE | 2018-12-27 07:22 | NUR ---
NURSE NOTES: Received patient from SARAI Alatorre. A/Ox4; able to make needs known. No s/sx of acute distress noted. Patient is on BIPAP 15/5, Fio2 100%, RR 24, SPo2 100%. Bilateral b/s diminished. Pt has a urinal pouch. RFA 20G running D5W@50cc/hr. Patient is in A-Fib with HR 80's. BP stable. All needs met at this time. Bed locked, alarmed and in lowest position. Will continue plan of care.
--- NOTE | 2018-12-27 07:29 | NUR ---
HAND-OFF: Report given to SARAI FLYNN.
[2018-12-27] MEDS ORDERED: Albuterol/Ipratropium 3ml neb HHN PRN (07:30)
--- NOTE | 2018-12-27 08:30 | NUR ---
NURSE NOTES: Notified Dr. Emerson of lab results. No order for potassium 3.4.
[2018-12-27] MEDS: Pantoprazole Inj IV SCH (09:03)
--- NOTE | 2018-12-27 09:28 | NUR ---
NURSE NOTES: No s/sx of discomfort. daughter at bedside. kept dry and clean.
--- NOTE | 2018-12-27 10:37 | Diagnostic Imaging Report ---
Indication: Shortness of breath Technique: One view of the chest Comparison: 12/26/2018 Findings: Diffuse interstitial and airspace infiltrates versus edema, left greater than right pleural effusions, diffuse osteosclerosis persist and are unchanged. Impression: Unchanged, over one day, findings as above.
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
[2018-12-27] MEDS ORDERED: dilTIAZem HCl 25mg/5ml Inj IV PRN (11:15)
--- NOTE | 2018-12-27 11:38 | NUR ---
RADIOLOGY DEPT CHEST X-RAY DONE.-P.DYE
--- NOTE | 2018-12-27 11:45 | NUR ---
NURSE NOTES: Ate 100% of lunch without difficulty. Encouraged patient to drink more nectar thick fluids as urine output is <20cc/hr. Denies any discomfort at this time.
--- NOTE | 2018-12-27 11:49 | NUR ---
NURSE NOTES: Dr. Mcmillan notified of patient transfer to ICU early this morning.
--- NOTE | 2018-12-27 12:17 | General Progress Note ---
Assessment/Plan Problem List: (1) Respiratory failure with hypoxia ICD Codes: J96.91 - Respiratory failure, unspecified with hypoxia SNOMED: 78125471864120127 Qualifiers: Qualified Codes: J96.01 - Acute respiratory failure with hypoxia (2) Atrial fibrillation with rapid ventricular response ICD Codes: I48.91 - Unspecified atrial fibrillation SNOMED: 058421773088993, 083959955 (3) Severe anemia ICD Codes: D64.9 - Anemia, unspecified SNOMED: 292715803 (4) ATN (acute tubular necrosis) ICD Codes: N17.0 - Acute kidney failure with tubular necrosis SNOMED: 86773598 (5) DM (diabetes mellitus) ICD Codes: E11.9 - Type 2 diabetes mellitus without complications SNOMED: 45254276 (6) Fever ICD Codes: R50.9 - Fever, unspecified SNOMED: 335967677 Status: unchanged Assessment/Plan vent transfuse prn cardio heme eval f/u cbc bmp am id eval aru eval Subjective Constitutional: Reports: weakness Allergies: Coded Allergies: No Known Allergies (Unverified , 12/15/18) All Systems: reviewed and negative except above Subjective o2 mask in icu for rapid afib Objective Last 24 Hour Vital Signs Date Time Temp Pulse Resp B/P (MAP) Pulse Ox O2 Delivery O2 Flow Rate FiO2 12/27/18 11:10 73 12 99 12.0 50 12/27/18 10:00 86 21 99/46 (63) 100 12/27/18 09:20 78 16 100 12.0 50 12/27/18 09:03 94 12/27/18 09:00 Venturi Mask 10.0 12/27/18 09:00 83 96/58 12/27/18 09:00 86 21 103/63 (76) 100 12/27/18 08:00 10.0 12/27/18 08:00 98.9 85 20 105/42 (63) 100 12/27/18 07:55 85 18 97 55 12/27/18 07:20 75 20 100 Facial 90 12/27/18 07:10 87 16 Bi-pap 100 12/27/18 07:10 100 Bi-pap 100 12/27/18 07:10 Bi-pap 100 12/27/18 07:00 85 20 105/42 (63) 100 12/27/18 06:30 88 20 104/65 (78) 100 12/27/18 06:00 84 20 81/44 (56) 100 12/27/18 05:30 87 21 90/59 (69) 100 12/27/18 05:06 101 96/53 12/27/18 05:00 103 23 80/41 (54) 100 12/27/18 04:30 70 18 100 Facial 100 12/27/18 04:30 98.8 103 24 86/39 (55) 100 12/27/18 04:30 100 12/27/18 04:00 99.0 155 24 120/70 (87) 78 12/27/18 04:00 155 12/27/18 03:31 119 24 94 Non-Rebreather 15.0 100 12/27/18 03:21 113 22 87 Nasal Cannula 3.0 32 12/27/18 01:32 3.0 12/27/18 00:00 99.2 93 18 101/54 (70) 97 95 12/27/18 00:00 80 12/26/18 21:35 99 Nasal Cannula 3.0 32 12/26/18 21:35 Nasal Cannula 3.0 32 12/26/18 21:35 93 18 Nasal Cannula 3.0 32 12/26/18 21:11 95 119/54 12/26/18 20:45 87 12/26/18 20:27 Nasal Cannula 3.0 Nasal Cannula 3.0 12/26/18 20:00 98.1 93 19 119/54 (75) 97 95 12/26/18 20:00 3.0 12/26/18 16:47 97.7 12/26/18 16:00 15.0 12/26/18 15:56 100.0 95 18 126/58 (80) 95 12/26/18 15:47 94 Intake and Output 12/26/18 12/27/18 19:00 07:00 Intake Total 620 ml 150 ml Output Total 550 ml 100 ml Balance 70 ml 50 ml Intake Oral 220 ml 50 ml IV Total 400 ml 100 ml Output Urine Total 550 ml 100 ml # Bowel Movements 3 1 Laboratory Tests 12/26/18 15:12: Urine Color Pale yellow, Urine Appearance Clear, Urine pH 5, Urine Specific [place] 1.015, Urine Protein 2+H, Urine Glucose (UA) Negative, Urine Ketones Negative, Urine Blood 1+H, Urine Nitrite Negative, Urine Bilirubin Negative, Urine Urobilinogen Normal, Urine Leukocyte Esterase 3+H, Urine RBC 2-4H, Urine WBC 5-10H, Urine Squamous Epithelial Cells Few, Urine Bacteria Few, Urine Yeast ModerateH 12/27/18 03:22: Arterial Blood pH 7.440, Arterial Blood Partial Pressure CO2 28.6L, Arterial Blood Partial Pressure O2 46.8*L, Arterial Blood HCO3 19.0L, Arterial Blood Oxygen Saturation 81.9*L, Arterial Blood Base Excess -4.3L, Remberto Test Positive 12/27/18 05:30: White Blood Count 11.7H, Red Blood Count 2.68L, Hemoglobin 7.9L, Hematocrit 23.8L, Mean Corpuscular Volume 89, Mean Corpuscular Hemoglobin 29.4, Mean Corpuscular Hemoglobin Concent 33.1, Red Cell Distribution Width 16.6H, Platelet Count 59L, Mean Platelet Volume 7.4, Neutrophils (%) (Auto) , Lymphocytes (%) (Auto) , Monocytes (%) (Auto) , Eosinophils (%) (Auto) , Basophils (%) (Auto) , Differential Total Cells Counted 100, Neutrophils % ( Manual) 71, Lymphocytes % (Manual) 9L, Monocytes % (Manual) 3, Eosinophils % ( Manual) 1, Basophils % (Manual) 0, Band Neutrophils 16H, Platelet Estimate DecreasedL, Platelet Morphology Normal, Anisocytosis 1+, Sodium Level 136, Potassium Level 3.4L, Chloride Level 105, Carbon Dioxide Level 24, Anion Gap 7, Blood Urea Nitrogen 18, Creatinine 1.1, Estimat Glomerular Filtration Rate , Glucose Level 105, Calcium Level 7.0L 12/27/18 08:50: Arterial Blood pH 7.464H, Arterial Blood Partial Pressure CO2 30.6L, Arterial Blood Partial Pressure O2 127.0H, Arterial Blood HCO3 21.5L, Arterial Blood Oxygen Saturation 97.8, Arterial Blood Base Excess -1.8, Remberto Test Positive Height (Feet): 5 Height (Inches): 6.00 Weight (Pounds): 119 General Appearance: lethargic EENT: normal ENT inspection Neck: normal alignment Cardiovascular: normal peripheral pulses Respiratory/Chest: chest wall non-tender, decreased breath sounds Abdomen: normal bowel sounds, non tender, soft Extremities: normal inspection Edema: no edema noted Arm (L), no edema noted Arm (R), no edema noted Leg (L), no edema noted Leg (R), no edema noted Pedal (L), no edema noted Pedal (R), no edema noted Generalized Neurologic: motor weakness Skin: normal pigmentation, warm/dry Landry rGeen DO Dec 27, 2018 12:17
--- NOTE | 2018-12-27 12:20 | GI Progress Note ---
Assessment/Plan Problems: (1) Severe anemia ICD Codes: D64.9 - Anemia, unspecified SNOMED: 392974973 (2) Anemia ICD Codes: D64.9 - Anemia, unspecified SNOMED: 448963051 (3) Elevated LFTs ICD Codes: R94.5 - Abnormal results of liver function studies SNOMED: 147264094, 634256101 (4) Dysphagia ICD Codes: R13.10 - Dysphagia, unspecified SNOMED: 94637429, 512520270 Status: unchanged Status Narrative Discussed with Dr. Caruso. Assessment/Plan s/p EGD SUMMARY OF FINDINGS: Severe gastritis versus portal hypertensive gastropathy versus ischemia, status post biopsy. Diet per ST Continue on PPI twice a day. Carafate. Follow up biopsy results and treat accordingly. prn transfusions Electrolyte correction follow labs The patient was seen and examined at bedside and all new and available data was reviewed in the patients chart. I agree with the above findings, impression and plan. (Patient seen earlier today. Signature stamp does not reflect patient encounter time.). - Mike Caruso MD Subjective Subjective limited Objective Last 24 Hour Vital Signs Date Time Temp Pulse Resp B/P (MAP) Pulse Ox O2 Delivery O2 Flow Rate FiO2 12/27/18 11:10 73 12 99 12.0 50 12/27/18 10:00 86 21 99/46 (63) 100 12/27/18 09:20 78 16 100 12.0 50 12/27/18 09:03 94 12/27/18 09:00 Venturi Mask 10.0 12/27/18 09:00 83 96/58 12/27/18 09:00 86 21 103/63 (76) 100 12/27/18 08:00 10.0 12/27/18 08:00 98.9 85 20 105/42 (63) 100 12/27/18 07:55 85 18 97 55 12/27/18 07:20 75 20 100 Facial 90 12/27/18 07:10 87 16 Bi-pap 100 12/27/18 07:10 100 Bi-pap 100 12/27/18 07:10 Bi-pap 100 12/27/18 07:00 85 20 105/42 (63) 100 12/27/18 06:30 88 20 104/65 (78) 100 12/27/18 06:00 84 20 81/44 (56) 100 12/27/18 05:30 87 21 90/59 (69) 100 12/27/18 05:06 101 96/53 12/27/18 05:00 103 23 80/41 (54) 100 12/27/18 04:30 70 18 100 Facial 100 12/27/18 04:30 98.8 103 24 86/39 (55) 100 12/27/18 04:30 100 12/27/18 04:00 99.0 155 24 120/70 (87) 78 12/27/18 04:00 155 12/27/18 03:31 119 24 94 Non-Rebreather 15.0 100 12/27/18 03:21 113 22 87 Nasal Cannula 3.0 32 12/27/18 01:32 3.0 12/27/18 00:00 99.2 93 18 101/54 (70) 97 95 12/27/18 00:00 80 12/26/18 21:35 99 Nasal Cannula 3.0 32 12/26/18 21:35 Nasal Cannula 3.0 32 12/26/18 21:35 93 18 Nasal Cannula 3.0 32 12/26/18 21:11 95 119/54 12/26/18 20:45 87 12/26/18 20:27 Nasal Cannula 3.0 Nasal Cannula 3.0 12/26/18 20:00 98.1 93 19 119/54 (75) 97 95 12/26/18 20:00 3.0 12/26/18 16:47 97.7 12/26/18 16:00 15.0 12/26/18 15:56 100.0 95 18 126/58 (80) 95 12/26/18 15:47 94 Intake and Output 12/26/18 12/27/18 19:00 07:00 Intake Total 620 ml 150 ml Output Total 550 ml 100 ml Balance 70 ml 50 ml Intake Oral 220 ml 50 ml IV Total 400 ml 100 ml Output Urine Total 550 ml 100 ml # Bowel Movements 3 1 Laboratory Tests Test 12/26/18 15:12 12/27/18 03:22 12/27/18 05:30 12/27/18 08:50 Urine Color Pale yellow Urine Appearance Clear Urine pH 5 (4.5-8.0) Urine Specific [place] 1.015 (1.005-1.035) Urine Protein 2+ (NEGATIVE) H Urine Glucose (UA) Negative (NEGATIVE) Urine Ketones Negative (NEGATIVE) Urine Blood 1+ (NEGATIVE) H Urine Nitrite Negative (NEGATIVE) Urine Bilirubin Negative (NEGATIVE) Urine Urobilinogen Normal MG/DL (0.0-1.0) Urine Leukocyte Esterase 3+ (NEGATIVE) H Urine RBC 2-4 /HPF (0 - 0) H Urine WBC 5-10 /HPF (0 - 0) H Urine Squamous Epithelial Cells Few /LPF (NONE/OCC) Urine Bacteria Few /HPF (NONE) Urine Yeast Moderate /HPF (NONE) H Arterial Blood pH 7.440 (7.350-7.450) 7.464 (7.350-7.450) Arterial Blood Partial Pressure CO2 28.6 mmHg (35.0-45.0) L 30.6 mmHg (35.0-45.0) L Arterial Blood Partial Pressure O2 46.8 mmHg (75.0-100.0) 127.0 mmHg (75.0-100.0) H Arterial Blood HCO3 19.0 mmol/L (22.0-26.0) L 21.5 mmol/L (22.0-26.0) L Arterial Blood Oxygen Saturation 81.9 % (95-100) *L 97.8 % (95-100) Arterial Blood Base Excess -4.3 (-2-2) L -1.8 (-2-2) Remberto Test Positive Positive White Blood Count 11.7 K/UL (4.8-10.8) H Red Blood Count 2.68 M/UL (4.70-6.10) L Hemoglobin 7.9 G/DL (14.2-18.0) L Hematocrit 23.8 % (42.0-52.0) L Mean Corpuscular Volume 89 FL (80-99) Mean Corpuscular Hemoglobin 29.4 PG (27.0-31.0) Mean Corpuscular Hemoglobin Concent 33.1 G/DL (32.0-36.0) Red Cell Distribution Width 16.6 % (11.6-14.8) H Platelet Count 59 K/UL (150-450) L Mean Platelet Volume 7.4 FL (6.5-10.1) Neutrophils (%) (Auto) % (45.0-75.0) Lymphocytes (%) (Auto) % (20.0-45.0) Monocytes (%) (Auto) % (1.0-10.0) Eosinophils (%) (Auto) % (0.0-3.0) Basophils (%) (Auto) % (0.0-2.0) Differential Total Cells Counted 100 Neutrophils % (Manual) 71 % (45-75) Lymphocytes % (Manual) 9 % (20-45) L Monocytes % (Manual) 3 % (1-10) Eosinophils % (Manual) 1 % (0-3) Basophils % (Manual) 0 % (0-2) Band Neutrophils 16 % (0-8) H Platelet Estimate Decreased L Platelet Morphology Normal Anisocytosis 1+ Sodium Level 136 MMOL/L (136-145) Potassium Level 3.4 MMOL/L (3.5-5.1) L Chloride Level 105 MMOL/L (98-107) Carbon Dioxide Level 24 MMOL/L (21-32) Anion Gap 7 mmol/L (5-15) Blood Urea Nitrogen 18 mg/dL (7-18) Creatinine 1.1 MG/DL (0.55-1.30) Estimat Glomerular Filtration Rate mL/min (>60) Glucose Level 105 MG/DL (74-106) Calcium Level 7.0 MG/DL (8.5-10.1) L Microbiology Date/Time Source Procedure Growth Status 12/26/18 15:12 Urine,Clean Catch Urine Culture - Preliminary Resulted Height (Feet): 5 Height (Inches): 6.00 Weight (Pounds): 119 General Appearance: WD/WN, no apparent distress, alert, thin Cardiovascular: normal rate Respiratory/Chest: normal breath sounds, no respiratory distress Abdominal Exam: normal bowel sounds, non tender, soft Extremities: non-tender Elke Jacobson [employer] Dec 27, 2018 12:19
--- NOTE | 2018-12-27 13:12 | NUR ---
SPEECH/SWALLOW THERAPY NOTE: PATIENT WAS SEEN FOR DYSPHAGIA, PLEASE REORDER SWALLOW EVAL CONSULT WHEN APPROPRIATE NOW THAT MEDICAL STATUS CHANGED AND PATIENT TRANSFERRED TO ICU.
--- NOTE | 2018-12-27 13:13 | NUR ---
NURSE NOTES: Pt kept dry and clean. A-fib on lunchroom monitor with HR in 80's. No SOB. Patient on RA, SPo2 98%, even and unlabored breathing.
[2018-12-27] MEDS: Meropenem 1 GM in NS 55 ML IVPB SCH ×2 (13:26→22:26)
[2018-12-27] MEDS ORDERED: Vancomycin 1gm/D5W 275ml IVPB ONE ×2 (13:30)
--- NOTE | 2018-12-27 13:30 | NUR ---
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 98.9 HR 85 RR 20 B/P 105/42 BIPAP 12/5 FIO2 50% WBC 11.7 H/H 7.9/25.8 BANDS 16 K 3.4 PH 7.46 PCO2 30.6 PO2 127.0 HCO3 21.5 O2 SAT 97.8 CXR= DIFFUSE INFILTRATES VS EDEMA IS: VANCO IV MEROPENEM IV CARDIZEM IV PRN PROTONIX IV ALB HHN ICU STATUS
--- NOTE | 2018-12-27 15:57 | NUR ---
NURSE NOTES: Began transfusion for x1 PRBC. No transfusion rxn noted. VSS.
--- NOTE | 2018-12-27 16:59 | Surgery Progress Note ---
Surgery Progress Note Subjective Additional Comments afib with RVR overnight. observation in ICU. labs noted. exam stable. looks well. Objective Last 24 Hour Vital Signs Date Time Temp Pulse Resp B/P (MAP) Pulse Ox O2 Delivery O2 Flow Rate FiO2 12/27/18 16:00 94 12/27/18 16:00 99.3 86 24 98/62 (74) 100 12/27/18 16:00 2.0 12/27/18 15:00 86 21 99/46 (63) 100 12/27/18 14:47 82 12 97 2.0 28 12/27/18 14:00 90 22 122/70 (87) 100 12/27/18 13:00 83 21 93/47 (62) 100 12/27/18 12:47 87 14 100 2.0 28 12/27/18 12:00 99.1 86 21 116/63 (80) 100 12/27/18 12:00 10.0 12/27/18 12:00 82 12/27/18 11:10 73 12 99 12.0 50 12/27/18 11:00 84 21 100/52 (68) 100 12/27/18 10:00 86 21 99/46 (63) 100 12/27/18 09:20 78 16 100 12.0 50 12/27/18 09:03 94 12/27/18 09:00 Venturi Mask 10.0 12/27/18 09:00 83 96/58 12/27/18 09:00 86 21 103/63 (76) 100 12/27/18 08:00 83 12/27/18 08:00 10.0 12/27/18 08:00 98.9 85 20 105/42 (63) 100 12/27/18 07:55 85 18 97 55 12/27/18 07:20 75 20 100 Facial 90 12/27/18 07:10 87 16 Bi-pap 100 12/27/18 07:10 100 Bi-pap 100 12/27/18 07:10 Bi-pap 100 12/27/18 07:00 85 20 105/42 (63) 100 12/27/18 06:30 88 20 104/65 (78) 100 12/27/18 06:00 84 20 81/44 (56) 100 12/27/18 05:30 87 21 90/59 (69) 100 12/27/18 05:06 101 96/53 12/27/18 05:00 103 23 80/41 (54) 100 12/27/18 04:30 70 18 100 Facial 100 12/27/18 04:30 98.8 103 24 86/39 (55) 100 12/27/18 04:30 100 12/27/18 04:00 99.0 155 24 120/70 (87) 78 12/27/18 04:00 155 12/27/18 03:31 119 24 94 Non-Rebreather 15.0 100 12/27/18 03:21 113 22 87 Nasal Cannula 3.0 32 12/27/18 01:32 3.0 12/27/18 00:00 99.2 93 18 101/54 (70) 97 95 12/27/18 00:00 80 12/26/18 21:35 99 Nasal Cannula 3.0 32 12/26/18 21:35 Nasal Cannula 3.0 32 12/26/18 21:35 93 18 Nasal Cannula 3.0 32 12/26/18 21:11 95 119/54 12/26/18 20:45 87 12/26/18 20:27 Nasal Cannula 3.0 Nasal Cannula 3.0 12/26/18 20:00 98.1 93 19 119/54 (75) 97 95 12/26/18 20:00 3.0 I&O Intake and Output 12/26/18 12/27/18 19:00 07:00 Intake Total 620 ml 150 ml Output Total 550 ml 100 ml Balance 70 ml 50 ml Intake Oral 220 ml 50 ml IV Total 400 ml 100 ml Output Urine Total 550 ml 100 ml # Bowel Movements 3 1 Cardiovascular: RSR Respiratory: clear Abdomen: soft, present bowel sounds, non-distended Extremities: no cyanosis Laboratory Tests Test 12/27/18 03:22 12/27/18 05:30 12/27/18 08:50 Arterial Blood pH 7.440 (7.350-7.450) 7.464 (7.350-7.450) Arterial Blood Partial Pressure CO2 28.6 mmHg (35.0-45.0) L 30.6 mmHg (35.0-45.0) L Arterial Blood Partial Pressure O2 46.8 mmHg (75.0-100.0) 127.0 mmHg (75.0-100.0) H Arterial Blood HCO3 19.0 mmol/L (22.0-26.0) L 21.5 mmol/L (22.0-26.0) L Arterial Blood Oxygen Saturation 81.9 % (95-100) *L 97.8 % (95-100) Arterial Blood Base Excess -4.3 (-2-2) L -1.8 (-2-2) Remberto Test Positive Positive White Blood Count 11.7 K/UL (4.8-10.8) H Red Blood Count 2.68 M/UL (4.70-6.10) L Hemoglobin 7.9 G/DL (14.2-18.0) L Hematocrit 23.8 % (42.0-52.0) L Mean Corpuscular Volume 89 FL (80-99) Mean Corpuscular Hemoglobin 29.4 PG (27.0-31.0) Mean Corpuscular Hemoglobin Concent 33.1 G/DL (32.0-36.0) Red Cell Distribution Width 16.6 % (11.6-14.8) H Platelet Count 59 K/UL (150-450) L Mean Platelet Volume 7.4 FL (6.5-10.1) Neutrophils (%) (Auto) % (45.0-75.0) Lymphocytes (%) (Auto) % (20.0-45.0) Monocytes (%) (Auto) % (1.0-10.0) Eosinophils (%) (Auto) % (0.0-3.0) Basophils (%) (Auto) % (0.0-2.0) Differential Total Cells Counted 100 Neutrophils % (Manual) 71 % (45-75) Lymphocytes % (Manual) 9 % (20-45) L Monocytes % (Manual) 3 % (1-10) Eosinophils % (Manual) 1 % (0-3) Basophils % (Manual) 0 % (0-2) Band Neutrophils 16 % (0-8) H Platelet Estimate Decreased L Platelet Morphology Normal Anisocytosis 1+ Sodium Level 136 MMOL/L (136-145) Potassium Level 3.4 MMOL/L (3.5-5.1) L Chloride Level 105 MMOL/L (98-107) Carbon Dioxide Level 24 MMOL/L (21-32) Anion Gap 7 mmol/L (5-15) Blood Urea Nitrogen 18 mg/dL (7-18) Creatinine 1.1 MG/DL (0.55-1.30) Estimat Glomerular Filtration Rate mL/min (>60) Glucose Level 105 MG/DL (74-106) Calcium Level 7.0 MG/DL (8.5-10.1) L Plan Problems: (1) Inguinal hernia Assessment & Plan: 78 year old male with massive inguinal hernia with bowel contents. CT with Massive indirect right inguinal hernia, containing the proximal colon and much if not most of the small bowel. No definite evidence of obstruction or strangulation Anasarca, with diffuse extensive bilateral pulmonary edema, bilateral pleural effusions, small amount of free intraperitoneal fluid, and extensive edema of the subcutaneous and mediastinal fat Colonic diverticulosis Diffuse skeletal osteosclerosis Distended bladder Prostatomegaly Large bilateral renal cysts. Calcification in the periventricular right kidney likely represent old involuted calcified cyst Nasogastric tube Incidental finding right lobe liver cyst On exam large inguinal hernia with bowel contents in scrotum not reducible but no signs of obstruction / strangulation. in reviewing CT likely loss of domain given patients body habitus compared to hernia size. patient awake but intubated on vent support. no tenderness but does have discomfort with manipulation. given above no acute surgical intervention planned as this is likely chronic and with loss of domain. unlikely to be incarcerated but will need to keep an eye on it as bowel can obstruction will follow with exams leukocytosis CXR improved pending UA repeat AM labs Abx as per ID thank you Yordy Tucker Dec 27, 2018 16:59
--- NOTE | 2018-12-27 17:24 | NUR ---
NURSE NOTES: Pt went into A-fib RVR with highest HR 152. Cardizem 10mg IVP given as per PRN orders. Will closely monitor.
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
--- NOTE | 2018-12-27 18:09 | Cardiac Electrophysiology PN ---
Assessment/Plan Assessment/Plan 1. Atrial fibrillation with rapid ventricular response. Precipitated by profound anemia with hemoglobin of 3.5. Echocardiogram showed ejection fraction of 45% with moderate to severe pulmonary hypertension. On Lopressor 100 bid and Dig 0.25 daily Converted to SR on 12/23/18 Off anticoagulations for gastrointestinal bleed and hemoglobin 3.5. Got another 10 mg iv Cardizem as developed RVR today. 2. Troponin leak due to atrial fib with RVR 3. Hypertension. Resume Metoprolol if SBP>100 . 4. Profound anemia, hemoglobin of 3.5. The patient was evaluated by Dr. Caruso and Berkley. S/P EGD by Dr Caruso 12/22/18 gastritis Getting PRBC again today 5. S/P Respiratory failure, only on Nasal cannula 6. Mild azotemia, BUN of 20, creatinine 1.0. DW RN Subjective Subjective Back in ICU for hypotension in 70s. Never started on Pressors. Last Metoprolol was at 2100. Getting PRBC RN at bedside. Objective Last 24 Hour Vital Signs Date Time Temp Pulse Resp B/P (MAP) Pulse Ox O2 Delivery O2 Flow Rate FiO2 12/27/18 17:00 150 122/35 12/27/18 16:59 123 16 96 2.0 28 12/27/18 16:00 94 12/27/18 16:00 99.3 86 24 98/62 (74) 100 12/27/18 16:00 2.0 12/27/18 15:00 86 21 99/46 (63) 100 12/27/18 14:47 82 12 97 2.0 28 12/27/18 14:00 90 22 122/70 (87) 100 12/27/18 13:00 83 21 93/47 (62) 100 12/27/18 12:47 87 14 100 2.0 28 12/27/18 12:00 99.1 86 21 116/63 (80) 100 12/27/18 12:00 10.0 12/27/18 12:00 82 12/27/18 11:10 73 12 99 12.0 50 12/27/18 11:00 84 21 100/52 (68) 100 12/27/18 10:00 86 21 99/46 (63) 100 12/27/18 09:20 78 16 100 12.0 50 12/27/18 09:03 94 3/11/19 09:00 Venturi Mask 10.0 12/27/18 09:00 83 96/58 12/27/18 09:00 86 21 103/63 (76) 100 12/27/18 08:00 83 12/27/18 08:00 10.0 12/27/18 08:00 98.9 85 20 105/42 (63) 100 12/27/18 07:55 85 18 97 55 12/27/18 07:20 75 20 100 Facial 90 12/27/18 07:10 87 16 Bi-pap 100 12/27/18 07:10 100 Bi-pap 100 12/27/18 07:10 Bi-pap 100 12/27/18 07:00 85 20 105/42 (63) 100 12/27/18 06:30 88 20 104/65 (78) 100 12/27/18 06:00 84 20 81/44 (56) 100 12/27/18 05:30 87 21 90/59 (69) 100 12/27/18 05:06 101 96/53 12/27/18 05:00 103 23 80/41 (54) 100 12/27/18 04:30 70 18 100 Facial 100 12/27/18 04:30 98.8 103 24 86/39 (55) 100 12/27/18 04:30 100 12/27/18 04:00 99.0 155 24 120/70 (87) 78 12/27/18 04:00 155 12/27/18 03:31 119 24 94 Non-Rebreather 15.0 100 12/27/18 03:21 113 22 87 Nasal Cannula 3.0 32 12/27/18 01:32 3.0 12/27/18 00:00 99.2 93 18 101/54 (70) 97 95 12/27/18 00:00 80 12/26/18 21:35 99 Nasal Cannula 3.0 32 12/26/18 21:35 Nasal Cannula 3.0 32 12/26/18 21:35 93 18 Nasal Cannula 3.0 32 12/26/18 21:11 95 119/54 12/26/18 20:45 87 12/26/18 20:27 Nasal Cannula 3.0 Nasal Cannula 3.0 12/26/18 20:00 98.1 93 19 119/54 (75) 97 95 12/26/18 20:00 3.0 Intake and Output 12/26/18 12/27/18 19:00 07:00 Intake Total 620 ml 150 ml Output Total 550 ml 100 ml Balance 70 ml 50 ml Intake Oral 220 ml 50 ml IV Total 400 ml 100 ml Output Urine Total 550 ml 100 ml # Bowel Movements 3 1 Laboratory Tests Test 12/27/18 03:22 12/27/18 05:30 12/27/18 08:50 Arterial Blood pH 7.440 (7.350-7.450) 7.464 (7.350-7.450) Arterial Blood Partial Pressure CO2 28.6 mmHg (35.0-45.0) L 30.6 mmHg (35.0-45.0) L Arterial Blood Partial Pressure O2 46.8 mmHg (75.0-100.0) 127.0 mmHg (75.0-100.0) H Arterial Blood HCO3 19.0 mmol/L (22.0-26.0) L 21.5 mmol/L (22.0-26.0) L Arterial Blood Oxygen Saturation 81.9 % (95-100) *L 97.8 % (95-100) Arterial Blood Base Excess -4.3 (-2-2) L -1.8 (-2-2) Remberto Test Positive Positive White Blood Count 11.7 K/UL (4.8-10.8) H Red Blood Count 2.68 M/UL (4.70-6.10) L Hemoglobin 7.9 G/DL (14.2-18.0) L Hematocrit 23.8 % (42.0-52.0) L Mean Corpuscular Volume 89 FL (80-99) Mean Corpuscular Hemoglobin 29.4 PG (27.0-31.0) Mean Corpuscular Hemoglobin Concent 33.1 G/DL (32.0-36.0) Red Cell Distribution Width 16.6 % (11.6-14.8) H Platelet Count 59 K/UL (150-450) L Mean Platelet Volume 7.4 FL (6.5-10.1) Neutrophils (%) (Auto) % (45.0-75.0) Lymphocytes (%) (Auto) % (20.0-45.0) Monocytes (%) (Auto) % (1.0-10.0) Eosinophils (%) (Auto) % (0.0-3.0) Basophils (%) (Auto) % (0.0-2.0) Differential Total Cells Counted 100 Neutrophils % (Manual) 71 % (45-75) Lymphocytes % (Manual) 9 % (20-45) L Monocytes % (Manual) 3 % (1-10) Eosinophils % (Manual) 1 % (0-3) Basophils % (Manual) 0 % (0-2) Band Neutrophils 16 % (0-8) H Platelet Estimate Decreased L Platelet Morphology Normal Anisocytosis 1+ Sodium Level 136 MMOL/L (136-145) Potassium Level 3.4 MMOL/L (3.5-5.1) L Chloride Level 105 MMOL/L (98-107) Carbon Dioxide Level 24 MMOL/L (21-32) Anion Gap 7 mmol/L (5-15) Blood Urea Nitrogen 18 mg/dL (7-18) Creatinine 1.1 MG/DL (0.55-1.30) Estimat Glomerular Filtration Rate mL/min (>60) Glucose Level 105 MG/DL (74-106) Calcium Level 7.0 MG/DL (8.5-10.1) L Microbiology Date/Time Source Procedure Growth Status 12/26/18 15:12 Urine,Clean Catch Urine Culture - Preliminary Resulted Objective HEAD AND NECK: No JVD LUNGS: Coarse rhonchi. CARDIOVASCULAR:Regular S1 and S2 with no gallop or murmur. Tachycardic. ABDOMEN: Soft. Swollen scrotum EXTREMITIES: No edema. Shantanu Mcmillan MD Dec 27, 2018 18:09
--- NOTE | 2018-12-27 18:30 | NUR ---
NURSE NOTES: Blood infusion complete. VSS. Patient not in distress. No s/sx of transfusion rxn noted.
--- NOTE | 2018-12-27 19:30 | NUR ---
NURSE NOTES: Received report from SARAI Watkins. Patient 's AO x4, opens eyes spontaneously, in no acute distress. VS stable. Afib on personnel monitor on NC 3L, satting 100%.With right forearm 20G noted, intact, TKO. SCDs in place. Head of bed elevated. Bed locked and in low position. Bed alarm on. Call light within reach. Will continue to monitor.
[2018-12-27] MEDS: Vancomycin 500mg/D5W 110ml IVPB SCH ×2 (21:29)
--- NOTE | 2018-12-27 22:00 | NUR ---
NURSE NOTES: Pt's resting in bed, watching TV, in no acute distress. VS stable. Will continue to monitor.
[2018-12-28] VITALS (22 sets, daily range): BP systolic 93–142; BP diastolic 39–85
--- NOTE | 2018-12-28 | NUR ---
NURSE NOTES: Pt's resting in bed, asleep with eyes closed, in no acute distress. VS stable. Will continue to monitor.
--- NOTE | 2018-12-28 02:00 | NUR ---
NURSE NOTES: Pt's resting in bed, asleep, in no acute distress. VS stable. Will continue to monitor.
--- NOTE | 2018-12-28 04:00 | NUR ---
NURSE NOTES: Pt's resting in bed, asleep, in no acute distress. VS stable. Will continue to monitor.
[2018-12-28 05:54] LABS: HEMATOCRIT 27.9 % (42.0-52.0); HEMOGLOBIN 9.2 G/DL (14.2-18.0); MEAN CORPUSCULAR VOLUME 87 FL (80-99); PLATELET COUNT 45 K/UL (150-450); RED BLOOD COUNT 3.23 M/UL (4.70-6.10); RED CELL DISTRIBUTION WIDTH 16.4 % (11.6-14.8); WHITE BLOOD COUNT 10.1 K/UL (4.8-10.8)
--- NOTE | 2018-12-28 06:00 | NUR ---
NURSE NOTES: Pt's resting in bed, asleep with eyes closed, in no acute distress. VS stable. Afebrile. Will continue to monitor.
[2018-12-28] MEDS: Meropenem 1 GM in NS 55 ML IVPB SCH ×3 (06:12→21:15)
[2018-12-28 06:17] LABS: ANION GAP 10 mmol/L (5-15); BLOOD UREA NITROGEN 19 mg/dL (7-18); CALCIUM 7.4 MG/DL (8.5-10.1); CARBON DIOXIDE 24 MMOL/L (21-32); CHLORIDE 106 MMOL/L (98-107); CREATININE 0.9 MG/DL (0.55-1.30); POTASSIUM 3.3 MMOL/L (3.5-5.1); SODIUM 140 MMOL/L (136-145)
--- NOTE | 2018-12-28 07:30 | NUR ---
HAND-OFF: Report given to SARAI Lima.
--- NOTE | 2018-12-28 07:35 | NUR ---
NURSE NOTES: Report received from Johnnie RN. Pt sleepy but arousable, alert and oriented x4, and able to make needs known. 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 Pt denies SOB. External urine pouch intact. RFA with tko. Safety measure in place with bed locked and in lowest position, side rails x 3 up and bed alarm on. Will continue to monitor and continue plan of care.
--- NOTE | 2018-12-28 08:30 | NUR ---
NURSE NOTES: Dietary came to see pt. Discusses the consistency of the ensure made by the kitchen. Hospital ensure gets very clumpy and difficult to drink. Will continue to monitor.
[2018-12-28] MEDS ORDERED: Digoxin 0.125mg tab ORAL SCH (09:00)
[2018-12-28] MEDS: Pantoprazole Inj IV SCH (09:12)
--- NOTE | 2018-12-28 09:17 | Pulmonolgy Critical Care Note ---
Critical Care - Asmt/Plan Problems: (1) Acute respiratory failure (2) Multilobar lung infiltrate (3) Severe anemia (4) ATN (acute tubular necrosis) (5) Atrial fibrillation with rapid ventricular response Respiratory: monitor respiratory rate, adjust FIO2, CXR Cardiac: continue to monitor HR/BP Renal: F/U I&O, keep IV fluid Infectious Disease: check cultures, continue antibiotics, other - on vancomycin and meropenem Gastrointestinal: continue feedings/current rate Endocrine: monitor blood sugar Hematologic: monitor H/H, transfuse if hgb<8.5 Neurologic: PRN Ativan, PRN Morphine, keep patient comfortable Prophylaxis: Protonix Disposition: transfer to Time Spent (Minutes): 40 Notes Reviewed: elevator constructor helper, cardio, renal Discussed with: nurses, consultants, family service caseworkerapplications project manager - Objective Last 24 Hour Vital Signs Date Time Temp Pulse Resp B/P (MAP) Pulse Ox O2 Delivery O2 Flow Rate FiO2 12/28/18 09:13 86 130/73 12/28/18 09:12 73 12/28/18 09:00 86 20 130/73 (92) 97 12/28/18 08:00 76 14 115/58 (77) 98 12/28/18 07:22 Nasal Cannula 2.0 28 12/28/18 07:22 87 20 Nasal Cannula 2.0 28 12/28/18 07:22 100 Nasal Cannula 2.0 28 12/28/18 07:00 82 16 93/46 (62) 97 12/28/18 06:00 98.4 80 18 108/67 (81) 97 12/28/18 05:09 82 16 99 2.0 28 12/28/18 05:00 82 16 105/66 (79) 97 12/28/18 04:00 2.0 12/28/18 04:00 84 12/28/18 04:00 107 27 139/65 (89) 98 12/28/18 03:11 82 15 98 2.0 28 12/28/18 03:00 84 16 93/39 (57) 100 12/28/18 02:39 94 18 100 2.0 28 12/28/18 02:00 80 19 114/49 (70) 100 12/28/18 01:00 98.8 81 18 101/41 (61) 100 12/28/18 00:00 80 20 100/44 (62) 100 12/28/18 00:00 92 12/28/18 00:00 2.0 12/27/18 23:00 84 20 100/52 (68) 100 12/27/18 22:00 84 20 111/62 (78) 100 12/27/18 21:30 96 103/60 12/27/18 21:20 108 20 100 2.0 28 12/27/18 21:00 Venturi Mask 10.0 12/27/18 21:00 93 22 122/55 (77) 100 12/27/18 20:00 98.9 89 22 96/52 (67) 100 12/27/18 20:00 92 12/27/18 20:00 2.0 12/27/18 19:45 Nasal Cannula 2.0 28 12/27/18 19:45 94 25 Nasal Cannula 2.0 28 12/27/18 19:45 106 24 100 2.0 28 12/27/18 19:45 100 Nasal Cannula 2.0 28 12/27/18 19:00 110 21 99/46 (63) 100 12/27/18 18:00 107 21 101/46 (64) 100 12/27/18 17:00 105 21 118/48 (71) 100 12/27/18 17:00 150 122/35 12/27/18 16:59 123 16 96 2.0 28 12/27/18 16:00 94 12/27/18 16:00 99.3 86 24 98/62 (74) 100 12/27/18 16:00 2.0 12/27/18 15:00 86 21 99/46 (63) 100 12/27/18 14:47 82 12 97 2.0 28 12/27/18 14:00 90 22 122/70 (87) 100 12/27/18 13:00 83 21 93/47 (62) 100 12/27/18 12:47 87 14 100 2.0 28 12/27/18 12:00 99.1 86 21 116/63 (80) 100 12/27/18 12:00 10.0 12/27/18 12:00 82 12/27/18 11:10 73 12 99 12.0 50 12/27/18 11:00 84 21 100/52 (68) 100 12/27/18 10:00 86 21 99/46 (63) 100 12/27/18 09:20 78 16 100 12.0 50 Status: awake Condition: improving HEENT: atraumatic Neck: full ROM Lungs: rhonchi Heart: HR/BP stable, irregular Abdomen: soft, non-tender, feeding tube Extremities: no C/C/E Decubiti: location Micro: Microbiology Date/Time Source Procedure Growth Status 12/26/18 15:12 Urine,Clean Catch Urine Culture - Preliminary Gram Negative Bacillus 1 Resulted Critical Care - Subjective ROS Limited/Unobtainable: No Condition: critical EKG Rhythm: Atrial Fibrillation FI02: 28 Vent Support Breath Rate: 16 Vent Support Mode: CPAP Vent Tidal Volume: 600 Sputum Amount: None PEEP: 5.0 PIP: 30 Tube Feeding Amount: 40 I&O: Intake and Output 12/27/18 12/28/18 18:59 06:59 Intake Total 300 ml 165 ml Output Total 300 ml 250 ml Balance 0 ml -85 ml Intake Oral 250 ml IV Total 50 ml 165 ml Output Urine Total 300 ml 250 ml # Bowel Movements 2 1 CXR: bibasilar effusion, interstitial infiltrate ET-Tube: 7.5 ET Position: 22 Labs: Laboratory Tests Test 12/28/18 05:05 White Blood Count 10.1 K/UL (4.8-10.8) Red Blood Count 3.23 M/UL (4.70-6.10) L Hemoglobin 9.2 G/DL (14.2-18.0) L Hematocrit 27.9 % (42.0-52.0) L Mean Corpuscular Volume 87 FL (80-99) Mean Corpuscular Hemoglobin 28.5 PG (27.0-31.0) Mean Corpuscular Hemoglobin Concent 33.0 G/DL (32.0-36.0) Red Cell Distribution Width 16.4 % (11.6-14.8) H Platelet Count 45 K/UL (150-450) L Mean Platelet Volume 7.9 FL (6.5-10.1) Neutrophils (%) (Auto) % (45.0-75.0) Lymphocytes (%) (Auto) % (20.0-45.0) Monocytes (%) (Auto) % (1.0-10.0) Eosinophils (%) (Auto) % (0.0-3.0) Basophils (%) (Auto) % (0.0-2.0) Differential Total Cells Counted 100 Neutrophils % (Manual) 95 % (45-75) H Lymphocytes % (Manual) 2 % (20-45) L Monocytes % (Manual) 2 % (1-10) Eosinophils % (Manual) 0 % (0-3) Basophils % (Manual) 0 % (0-2) Band Neutrophils 1 % (0-8) Platelet Estimate Decreased L Platelet Morphology Normal Hypochromasia 2+ Anisocytosis 1+ Spherocytes 1+ Sodium Level 140 MMOL/L (136-145) Potassium Level 3.3 MMOL/L (3.5-5.1) L Chloride Level 106 MMOL/L (98-107) Carbon Dioxide Level 24 MMOL/L (21-32) Anion Gap 10 mmol/L (5-15) Blood Urea Nitrogen 19 mg/dL (7-18) H Creatinine 0.9 MG/DL (0.55-1.30) Estimat Glomerular Filtration Rate mL/min (>60) Glucose Level 109 MG/DL (74-106) H Calcium Level 7.4 MG/DL (8.5-10.1) L C-Reactive Protein, Quantitative 32.7 mg/dL (0.00-0.90) H Bryan Emerson MD Dec 28, 2018 09:17
[2018-12-28] MEDS: Vancomycin 500mg/D5W 110ml IVPB SCH ×2 (09:21)
--- NOTE | 2018-12-28 09:59 | NUR ---
NURSE NOTES: Dr Emerson here to see pt. KCL ordered. Will continue to monitor.
[2018-12-28] MEDS ORDERED: Potassium Chloride 40 MEQ in Sodium Chloride 550 ML IVPB ONE (10:00)
[2018-12-28] MEDS ORDERED: Amiodarone 200mg tab ORAL SCH (10:15)
--- NOTE | 2018-12-28 10:17 | Cardiac Electrophysiology PN ---
Assessment/Plan Assessment/Plan 1. Atrial fibrillation with rapid ventricular response. Precipitated by profound anemia with hemoglobin of 3.5. Echocardiogram showed ejection fraction of 45% with moderate to severe pulmonary hypertension. On Lopressor 100 bid and Dig 0.25 daily Converted to SR on 12/23/18 but back in atrial fib Off anticoagulations for gastrointestinal bleed and hemoglobin 3.5. Start Amiodarone 200 mg po daily and decrease Dig to 0.125 mg po daily 2. Troponin leak due to atrial fib with RVR 3. Hypertension. On Metoprolol if SBP>100 . 4. Profound anemia, hemoglobin of 3.5. The patient was evaluated by Dr. Caruso and Berkley. S/P EGD by Dr Caruso 12/22/18 gastritis S/P PRBC 5. S/P Respiratory failure 6. Mild azotemia, BUN of 20, creatinine 1.0. DW RN Subjective Subjective In ICU. Never started on Pressors. Got Metoprolol this am and Dig. RN at bedside. Objective Last 24 Hour Vital Signs Date Time Temp Pulse Resp B/P (MAP) Pulse Ox O2 Delivery O2 Flow Rate FiO2 12/28/18 10:00 78 17 116/56 (76) 100 12/28/18 09:13 86 130/73 12/28/18 09:12 73 12/28/18 09:00 Venturi Mask 10.0 12/28/18 09:00 86 20 130/73 (92) 97 12/28/18 08:00 74 12/28/18 08:00 97.0 76 14 115/58 (77) 98 12/28/18 08:00 2.0 12/28/18 07:22 Nasal Cannula 2.0 28 12/28/18 07:22 87 20 Nasal Cannula 2.0 28 12/28/18 07:22 100 Nasal Cannula 2.0 28 12/28/18 07:00 82 16 93/46 (62) 97 12/28/18 06:00 98.4 80 18 108/67 (81) 97 12/28/18 05:09 82 16 99 2.0 28 12/28/18 05:00 82 16 105/66 (79) 97 12/28/18 04:00 2.0 12/28/18 04:00 84 12/28/18 04:00 107 27 139/65 (89) 98 12/28/18 03:11 82 15 98 2.0 28 12/28/18 03:00 84 16 93/39 (57) 100 12/28/18 02:39 94 18 100 2.0 28 12/28/18 02:00 80 19 114/49 (70) 100 12/28/18 01:00 98.8 81 18 101/41 (61) 100 12/28/18 00:00 80 20 100/44 (62) 100 12/28/18 00:00 92 12/28/18 00:00 2.0 12/27/18 23:00 84 20 100/52 (68) 100 12/27/18 22:00 84 20 111/62 (78) 100 12/27/18 21:30 96 103/60 12/27/18 21:20 108 20 100 2.0 28 12/27/18 21:00 Venturi Mask 10.0 12/27/18 21:00 93 22 122/55 (77) 100 12/27/18 20:00 98.9 89 22 96/52 (67) 100 12/27/18 20:00 92 12/27/18 20:00 2.0 12/27/18 19:45 Nasal Cannula 2.0 28 12/27/18 19:45 94 25 Nasal Cannula 2.0 28 12/27/18 19:45 106 24 100 2.0 28 12/27/18 19:45 100 Nasal Cannula 2.0 28 12/27/18 19:00 110 21 99/46 (63) 100 12/27/18 18:00 107 21 101/46 (64) 100 12/27/18 17:00 105 21 118/48 (71) 100 12/27/18 17:00 150 122/35 12/27/18 16:59 123 16 96 2.0 28 12/27/18 16:00 94 12/27/18 16:00 99.3 86 24 98/62 (74) 100 12/27/18 16:00 2.0 12/27/18 15:00 86 21 99/46 (63) 100 12/27/18 14:47 82 12 97 2.0 28 12/27/18 14:00 90 22 122/70 (87) 100 12/27/18 13:00 83 21 93/47 (62) 100 12/27/18 12:47 87 14 100 2.0 28 12/27/18 12:00 99.1 86 21 116/63 (80) 100 12/27/18 12:00 10.0 12/27/18 12:00 82 12/27/18 11:10 73 12 99 12.0 50 12/27/18 11:00 84 21 100/52 (68) 100 Intake and Output 12/27/18 12/28/18 18:59 06:59 Intake Total 300 ml 165 ml Output Total 300 ml 250 ml Balance 0 ml -85 ml Intake Oral 250 ml IV Total 50 ml 165 ml Output Urine Total 300 ml 250 ml # Bowel Movements 2 1 Laboratory Tests Test 12/28/18 05:05 White Blood Count 10.1 K/UL (4.8-10.8) Red Blood Count 3.23 M/UL (4.70-6.10) L Hemoglobin 9.2 G/DL (14.2-18.0) L Hematocrit 27.9 % (42.0-52.0) L Mean Corpuscular Volume 87 FL (80-99) Mean Corpuscular Hemoglobin 28.5 PG (27.0-31.0) Mean Corpuscular Hemoglobin Concent 33.0 G/DL (32.0-36.0) Red Cell Distribution Width 16.4 % (11.6-14.8) H Platelet Count 45 K/UL (150-450) L Mean Platelet Volume 7.9 FL (6.5-10.1) Neutrophils (%) (Auto) % (45.0-75.0) Lymphocytes (%) (Auto) % (20.0-45.0) Monocytes (%) (Auto) % (1.0-10.0) Eosinophils (%) (Auto) % (0.0-3.0) Basophils (%) (Auto) % (0.0-2.0) Differential Total Cells Counted 100 Neutrophils % (Manual) 95 % (45-75) H Lymphocytes % (Manual) 2 % (20-45) L Monocytes % (Manual) 2 % (1-10) Eosinophils % (Manual) 0 % (0-3) Basophils % (Manual) 0 % (0-2) Band Neutrophils 1 % (0-8) Platelet Estimate Decreased L Platelet Morphology Normal Hypochromasia 2+ Anisocytosis 1+ Spherocytes 1+ Sodium Level 140 MMOL/L (136-145) Potassium Level 3.3 MMOL/L (3.5-5.1) L Chloride Level 106 MMOL/L (98-107) Carbon Dioxide Level 24 MMOL/L (21-32) Anion Gap 10 mmol/L (5-15) Blood Urea Nitrogen 19 mg/dL (7-18) H Creatinine 0.9 MG/DL (0.55-1.30) Estimat Glomerular Filtration Rate mL/min (>60) Glucose Level 109 MG/DL (74-106) H Calcium Level 7.4 MG/DL (8.5-10.1) L C-Reactive Protein, Quantitative 32.7 mg/dL (0.00-0.90) H Microbiology Date/Time Source Procedure Growth Status 12/26/18 15:12 Urine,Clean Catch Urine Culture - Preliminary Gram Negative Bacillus 1 Resulted Objective HEAD AND NECK: No JVD LUNGS: Coarse rhonchi. CARDIOVASCULAR:Regular S1 and S2 with no gallop or murmur. ABDOMEN: Soft. Swollen scrotum EXTREMITIES: No edema. Shantanu Mcmillan MD Dec 28, 2018 10:17
--- NOTE | 2018-12-28 10:41 | NUR ---
RD ASSESSMENT & RECOMMENDATIONS SEE CARE ACTIVITY FOR COMPLETE ASSESSMENT DAILY ESTIMATED NEEDS: Needs based on underweight 52kg 30-35 kcals/kg 3231-8581 total kcals 1-1.5 g protein/kg 52-78 g total protein 25-30 mL/kg 4592-4971 total fluid mLs NUTRITION DIAGNOSIS: 1) Swallowing difficulty r/t respiratory status as evidenced by pt now now extubated, seen by DYE TUB OPERATOR w/ rec for pureed moist, NTL. 2) Increased kcal and protein needs r/t underweight status as evidenced by pt is 74% of [place] Body Weight, underweight per guidelines, presents w/ generalized moderate to severe wasting. PO DIET RECOMMENDATIONS: REGULAR/ texture per DYE TUB OPERATOR + Ensure Enlive BID in b/w meals ADDITIONAL RECOMMENDATIONS: 1) Obtain calibrated bed scale wts, weekly wts -> Pt is underweight 2) Monitor PO intake closely 3) Add Ensure Enlive TID w/ meals (350kcal/20g prot per bottle) 4) Check lytes daily, replete as needed (low k) .
--- NOTE | 2018-12-28 11:11 | NUR ---
NURSE NOTES: Dr Mcmillan here to see pt. No acute distress. Dr ordered to start amiodarone po and decrease digoxin. Pt ok to transfer to tele today. Will continue to monitor.
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
--- NOTE | 2018-12-28 12:16 | NUR ---
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 97.0 HR 76 RR 14 B/P 115/58 VM 10L K 3.3 IS: K+ IV VANCO IV MEROPENEM IV PROTONIX IV ALB HHN ICU STATUS
--- NOTE | 2018-12-28 12:48 | GI Progress Note ---
Assessment/Plan Problems: (1) Severe anemia ICD Codes: D64.9 - Anemia, unspecified SNOMED: 582838499 (2) Anemia ICD Codes: D64.9 - Anemia, unspecified SNOMED: 344833071 (3) Elevated LFTs ICD Codes: R94.5 - Abnormal results of liver function studies SNOMED: 877165737, 656379879 (4) Dysphagia ICD Codes: R13.10 - Dysphagia, unspecified SNOMED: 09380233, 704554386 Status: unchanged Status Narrative Discussed with Dr. Caruso Assessment/Plan s/p EGD SUMMARY OF FINDINGS: Severe gastritis versus portal hypertensive gastropathy versus ischemia, status post biopsy. Diet per ST, add Marinol Continue on PPI twice a day. Carafate. Follow up biopsy results and treat accordingly. prn transfusions Electrolyte correction follow labs The patient was seen and examined at bedside and all new and available data was reviewed in the patients chart. I agree with the above findings, impression and plan. (Patient seen earlier today. Signature stamp does not reflect patient encounter time.). - Mike Caruso MD Subjective Subjective Denies any abdominal pain Poor appetite States he dislikes the food here Objective Last 24 Hour Vital Signs Date Time Temp Pulse Resp B/P (MAP) Pulse Ox O2 Delivery O2 Flow Rate FiO2 12/28/18 11:00 71 17 105/66 (79) 100 12/28/18 10:00 78 17 116/56 (76) 100 12/28/18 09:13 86 130/73 12/28/18 09:12 73 12/28/18 09:00 Venturi Mask 10.0 12/28/18 09:00 86 20 130/73 (92) 97 12/28/18 08:00 74 12/28/18 08:00 97.0 76 14 115/58 (77) 98 12/28/18 08:00 2.0 12/28/18 07:22 Nasal Cannula 2.0 28 12/28/18 07:22 87 20 Nasal Cannula 2.0 28 12/28/18 07:22 100 Nasal Cannula 2.0 28 12/28/18 07:00 82 16 93/46 (62) 97 12/28/18 06:00 98.4 80 18 108/67 (81) 97 3/12/19 05:09 82 16 99 2.0 28 12/28/18 05:00 82 16 105/66 (79) 97 12/28/18 04:00 2.0 12/28/18 04:00 84 12/28/18 04:00 107 27 139/65 (89) 98 12/28/18 03:11 82 15 98 2.0 28 12/28/18 03:00 84 16 93/39 (57) 100 12/28/18 02:39 94 18 100 2.0 28 12/28/18 02:00 80 19 114/49 (70) 100 12/28/18 01:00 98.8 81 18 101/41 (61) 100 12/28/18 00:00 80 20 100/44 (62) 100 12/28/18 00:00 92 12/28/18 00:00 2.0 12/27/18 23:00 84 20 100/52 (68) 100 12/27/18 22:00 84 20 111/62 (78) 100 12/27/18 21:30 96 103/60 12/27/18 21:20 108 20 100 2.0 28 12/27/18 21:00 Venturi Mask 10.0 12/27/18 21:00 93 22 122/55 (77) 100 12/27/18 20:00 98.9 89 22 96/52 (67) 100 12/27/18 20:00 92 12/27/18 20:00 2.0 12/27/18 19:45 Nasal Cannula 2.0 28 12/27/18 19:45 94 25 Nasal Cannula 2.0 28 12/27/18 19:45 106 24 100 2.0 28 12/27/18 19:45 100 Nasal Cannula 2.0 28 12/27/18 19:00 110 21 99/46 (63) 100 12/27/18 18:00 107 21 101/46 (64) 100 12/27/18 17:00 105 21 118/48 (71) 100 12/27/18 17:00 150 122/35 12/27/18 16:59 123 16 96 2.0 28 12/27/18 16:00 94 12/27/18 16:00 99.3 86 24 98/62 (74) 100 12/27/18 16:00 2.0 3/11/19 15:00 86 21 99/46 (63) 100 12/27/18 14:47 82 12 97 2.0 28 12/27/18 14:00 90 22 122/70 (87) 100 12/27/18 13:00 83 21 93/47 (62) 100 Intake and Output 12/27/18 12/28/18 18:59 06:59 Intake Total 300 ml 165 ml Output Total 300 ml 250 ml Balance 0 ml -85 ml Intake Oral 250 ml IV Total 50 ml 165 ml Output Urine Total 300 ml 250 ml # Bowel Movements 2 1 Laboratory Tests Test 12/28/18 05:05 White Blood Count 10.1 K/UL (4.8-10.8) Red Blood Count 3.23 M/UL (4.70-6.10) L Hemoglobin 9.2 G/DL (14.2-18.0) L Hematocrit 27.9 % (42.0-52.0) L Mean Corpuscular Volume 87 FL (80-99) Mean Corpuscular Hemoglobin 28.5 PG (27.0-31.0) Mean Corpuscular Hemoglobin Concent 33.0 G/DL (32.0-36.0) Red Cell Distribution Width 16.4 % (11.6-14.8) H Platelet Count 45 K/UL (150-450) L Mean Platelet Volume 7.9 FL (6.5-10.1) Neutrophils (%) (Auto) % (45.0-75.0) Lymphocytes (%) (Auto) % (20.0-45.0) Monocytes (%) (Auto) % (1.0-10.0) Eosinophils (%) (Auto) % (0.0-3.0) Basophils (%) (Auto) % (0.0-2.0) Differential Total Cells Counted 100 Neutrophils % (Manual) 95 % (45-75) H Lymphocytes % (Manual) 2 % (20-45) L Monocytes % (Manual) 2 % (1-10) Eosinophils % (Manual) 0 % (0-3) Basophils % (Manual) 0 % (0-2) Band Neutrophils 1 % (0-8) Platelet Estimate Decreased L Platelet Morphology Normal Hypochromasia 2+ Anisocytosis 1+ Spherocytes 1+ Sodium Level 140 MMOL/L (136-145) Potassium Level 3.3 MMOL/L (3.5-5.1) L Chloride Level 106 MMOL/L (98-107) Carbon Dioxide Level 24 MMOL/L (21-32) Anion Gap 10 mmol/L (5-15) Blood Urea Nitrogen 19 mg/dL (7-18) H Creatinine 0.9 MG/DL (0.55-1.30) Estimat Glomerular Filtration Rate mL/min (>60) Glucose Level 109 MG/DL (74-106) H Calcium Level 7.4 MG/DL (8.5-10.1) L C-Reactive Protein, Quantitative 32.7 mg/dL (0.00-0.90) H Microbiology Date/Time Source Procedure Growth Status 12/27/18 13:00 Blood Blood Culture - Preliminary Resulted Height (Feet): 5 Height (Inches): 6.00 Weight (Pounds): 116 General Appearance: WD/WN, no apparent distress, alert, thin Cardiovascular: normal rate Respiratory/Chest: normal breath sounds, no respiratory distress Abdominal Exam: normal bowel sounds, non tender, soft Extremities: non-tender Elke Jacobson NP Dec 28, 2018 12:48
--- NOTE | 2018-12-28 12:54 | NUR ---
NURSE NOTES: Spencer [employer] came to see pt. Marinol ordered for appetite and diet changed to soft (easy to chew). No acute distress. Will continue to monitor.
[2018-12-28] MEDS: Dronabinol 2.5mg Cap ORAL SCH ×2 (13:00→18:29)
--- NOTE | 2018-12-28 13:21 | Surgery Progress Note ---
Surgery Progress Note Subjective Symptoms: improved, pain absent, passing flatus Objective Last 24 Hour Vital Signs Date Time Temp Pulse Resp B/P (MAP) Pulse Ox O2 Delivery O2 Flow Rate FiO2 12/28/18 13:00 87 24 123/85 (98) 100 12/28/18 12:00 80 12/28/18 12:00 2.0 12/28/18 12:00 97.0 78 18 120/71 (87) 100 12/28/18 11:00 71 17 105/66 (79) 100 12/28/18 10:00 78 17 116/56 (76) 100 12/28/18 09:13 86 130/73 12/28/18 09:12 73 12/28/18 09:00 Venturi Mask 10.0 12/28/18 09:00 86 20 130/73 (92) 97 12/28/18 08:00 74 12/28/18 08:00 97.0 76 14 115/58 (77) 98 12/28/18 08:00 2.0 12/28/18 07:22 Nasal Cannula 2.0 28 12/28/18 07:22 87 20 Nasal Cannula 2.0 28 12/28/18 07:22 100 Nasal Cannula 2.0 28 12/28/18 07:00 82 16 93/46 (62) 97 12/28/18 06:00 98.4 80 18 108/67 (81) 97 12/28/18 05:09 82 16 99 2.0 28 12/28/18 05:00 82 16 105/66 (79) 97 12/28/18 04:00 2.0 12/28/18 04:00 84 12/28/18 04:00 107 27 139/65 (89) 98 12/28/18 03:11 82 15 98 2.0 28 12/28/18 03:00 84 16 93/39 (57) 100 12/28/18 02:39 94 18 100 2.0 28 12/28/18 02:00 80 19 114/49 (70) 100 12/28/18 01:00 98.8 81 18 101/41 (61) 100 12/28/18 00:00 80 20 100/44 (62) 100 12/28/18 00:00 92 12/28/18 00:00 2.0 12/27/18 23:00 84 20 100/52 (68) 100 12/27/18 22:00 84 20 111/62 (78) 100 12/27/18 21:30 96 103/60 12/27/18 21:20 108 20 100 2.0 28 12/27/18 21:00 Venturi Mask 10.0 12/27/18 21:00 93 22 122/55 (77) 100 12/27/18 20:00 98.9 89 22 96/52 (67) 100 12/27/18 20:00 92 12/27/18 20:00 2.0 12/27/18 19:45 Nasal Cannula 2.0 28 12/27/18 19:45 94 25 Nasal Cannula 2.0 28 12/27/18 19:45 106 24 100 2.0 28 12/27/18 19:45 100 Nasal Cannula 2.0 28 12/27/18 19:00 110 21 99/46 (63) 100 12/27/18 18:00 107 21 101/46 (64) 100 12/27/18 17:00 105 21 118/48 (71) 100 12/27/18 17:00 150 122/35 12/27/18 16:59 123 16 96 2.0 28 12/27/18 16:00 94 12/27/18 16:00 99.3 86 24 98/62 (74) 100 12/27/18 16:00 2.0 12/27/18 15:00 86 21 99/46 (63) 100 12/27/18 14:47 82 12 97 2.0 28 12/27/18 14:00 90 22 122/70 (87) 100 I&O Intake and Output 12/27/18 12/28/18 18:59 06:59 Intake Total 300 ml 165 ml Output Total 300 ml 250 ml Balance 0 ml -85 ml Intake Oral 250 ml IV Total 50 ml 165 ml Output Urine Total 300 ml 250 ml # Bowel Movements 2 1 Drains: none Cardiovascular: RSR Respiratory: clear Abdomen: soft, flat, non-tender, non-distended Extremities: no tenderness, no cyanosis Laboratory Tests Test 12/28/18 05:05 White Blood Count 10.1 K/UL (4.8-10.8) Red Blood Count 3.23 M/UL (4.70-6.10) L Hemoglobin 9.2 G/DL (14.2-18.0) L Hematocrit 27.9 % (42.0-52.0) L Mean Corpuscular Volume 87 FL (80-99) Mean Corpuscular Hemoglobin 28.5 PG (27.0-31.0) Mean Corpuscular Hemoglobin Concent 33.0 G/DL (32.0-36.0) Red Cell Distribution Width 16.4 % (11.6-14.8) H Platelet Count 45 K/UL (150-450) L Mean Platelet Volume 7.9 FL (6.5-10.1) Neutrophils (%) (Auto) % (45.0-75.0) Lymphocytes (%) (Auto) % (20.0-45.0) Monocytes (%) (Auto) % (1.0-10.0) Eosinophils (%) (Auto) % (0.0-3.0) Basophils (%) (Auto) % (0.0-2.0) Differential Total Cells Counted 100 Neutrophils % (Manual) 95 % (45-75) H Lymphocytes % (Manual) 2 % (20-45) L Monocytes % (Manual) 2 % (1-10) Eosinophils % (Manual) 0 % (0-3) Basophils % (Manual) 0 % (0-2) Band Neutrophils 1 % (0-8) Platelet Estimate Decreased L Platelet Morphology Normal Hypochromasia 2+ Anisocytosis 1+ Spherocytes 1+ Sodium Level 140 MMOL/L (136-145) Potassium Level 3.3 MMOL/L (3.5-5.1) L Chloride Level 106 MMOL/L (98-107) Carbon Dioxide Level 24 MMOL/L (21-32) Anion Gap 10 mmol/L (5-15) Blood Urea Nitrogen 19 mg/dL (7-18) H Creatinine 0.9 MG/DL (0.55-1.30) Estimat Glomerular Filtration Rate mL/min (>60) Glucose Level 109 MG/DL (74-106) H Calcium Level 7.4 MG/DL (8.5-10.1) L C-Reactive Protein, Quantitative 32.7 mg/dL (0.00-0.90) H Plan Problems: (1) Inguinal hernia Assessment & Plan: 78 year old male with massive inguinal hernia with bowel contents. CT with Massive indirect right inguinal hernia, containing the proximal colon and much if not most of the small bowel. No definite evidence of obstruction or strangulation Anasarca, with diffuse extensive bilateral pulmonary edema, bilateral pleural effusions, small amount of free intraperitoneal fluid, and extensive edema of the subcutaneous and mediastinal fat Colonic diverticulosis Diffuse skeletal osteosclerosis Distended bladder Prostatomegaly Large bilateral renal cysts. Calcification in the periventricular right kidney likely represent old involuted calcified cyst Nasogastric tube Incidental finding right lobe liver cyst On exam large inguinal hernia with bowel contents in scrotum not reducible but no signs of obstruction / strangulation. in reviewing CT likely loss of domain given patients body habitus compared to hernia size. patient awake but intubated on vent support. no tenderness but does have discomfort with manipulation. given above no acute surgical intervention planned as this is likely chronic and with loss of domain. unlikely to be incarcerated but will need to keep an eye on it as bowel can obstruction will follow with exams leukocytosis resolving CXR improved repeat AM labs Abx as per ID appreciate Cardiology input thank you Yordy Tucker Dec 28, 2018 13:21
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
--- NOTE | 2018-12-28 16:09 | NUR ---
NURSE NOTES: Dr Norton here to see pt. said pt looks better and more awake than yesterday. Will continue to monitor.
--- NOTE | 2018-12-28 16:19 | General Progress Note ---
Assessment/Plan Problem List: (1) Respiratory failure with hypoxia ICD Codes: J96.91 - Respiratory failure, unspecified with hypoxia SNOMED: 85463641780516998 Qualifiers: Qualified Codes: J96.01 - Acute respiratory failure with hypoxia (2) Atrial fibrillation with rapid ventricular response ICD Codes: I48.91 - Unspecified atrial fibrillation SNOMED: 195666188060163, 819676289 (3) Severe anemia ICD Codes: D64.9 - Anemia, unspecified SNOMED: 062395355 (4) ATN (acute tubular necrosis) ICD Codes: N17.0 - Acute kidney failure with tubular necrosis SNOMED: 70126819 (5) DM (diabetes mellitus) ICD Codes: E11.9 - Type 2 diabetes mellitus without complications SNOMED: 70901103 (6) Fever ICD Codes: R50.9 - Fever, unspecified SNOMED: 970010881 Status: unchanged Assessment/Plan vent transfuse prn cardio heme eval f/u cbc bmp am id eval aru eval Subjective Constitutional: Reports: weakness Allergies: Coded Allergies: No Known Allergies (Unverified , 12/15/18) All Systems: reviewed and negative except above Subjective o2 nc awake in icu Objective Last 24 Hour Vital Signs Date Time Temp Pulse Resp B/P (MAP) Pulse Ox O2 Delivery O2 Flow Rate FiO2 12/28/18 16:00 2.0 12/28/18 16:00 97.2 76 20 135/71 (92) 100 12/28/18 15:00 86 22 119/70 (86) 100 12/28/18 14:00 79 21 123/77 (92) 100 12/28/18 13:00 87 24 123/85 (98) 100 12/28/18 12:00 80 12/28/18 12:00 2.0 12/28/18 12:00 97.0 78 18 120/71 (87) 100 12/28/18 11:00 71 17 105/66 (79) 100 12/28/18 10:00 78 17 116/56 (76) 100 12/28/18 09:13 86 130/73 12/28/18 09:12 73 12/28/18 09:00 Venturi Mask 10.0 12/28/18 09:00 86 20 130/73 (92) 97 12/28/18 08:00 74 12/28/18 08:00 97.0 76 14 115/58 (77) 98 12/28/18 08:00 2.0 12/28/18 07:22 Nasal Cannula 2.0 28 12/28/18 07:22 87 20 Nasal Cannula 2.0 28 12/28/18 07:22 100 Nasal Cannula 2.0 28 12/28/18 07:00 82 16 93/46 (62) 97 12/28/18 06:00 98.4 80 18 108/67 (81) 97 12/28/18 05:09 82 16 99 2.0 28 12/28/18 05:00 82 16 105/66 (79) 97 12/28/18 04:00 2.0 12/28/18 04:00 84 12/28/18 04:00 107 27 139/65 (89) 98 12/28/18 03:11 82 15 98 2.0 28 12/28/18 03:00 84 16 93/39 (57) 100 12/28/18 02:39 94 18 100 2.0 28 12/28/18 02:00 80 19 114/49 (70) 100 12/28/18 01:00 98.8 81 18 101/41 (61) 100 12/28/18 00:00 80 20 100/44 (62) 100 12/28/18 00:00 92 12/28/18 00:00 2.0 12/27/18 23:00 84 20 100/52 (68) 100 12/27/18 22:00 84 20 111/62 (78) 100 12/27/18 21:30 96 103/60 12/27/18 21:20 108 20 100 2.0 28 12/27/18 21:00 Venturi Mask 10.0 12/27/18 21:00 93 22 122/55 (77) 100 12/27/18 20:00 98.9 89 22 96/52 (67) 100 12/27/18 20:00 92 12/27/18 20:00 2.0 12/27/18 19:45 Nasal Cannula 2.0 28 12/27/18 19:45 94 25 Nasal Cannula 2.0 28 12/27/18 19:45 106 24 100 2.0 28 12/27/18 19:45 100 Nasal Cannula 2.0 28 12/27/18 19:00 110 21 99/46 (63) 100 12/27/18 18:00 107 21 101/46 (64) 100 12/27/18 17:00 105 21 118/48 (71) 100 12/27/18 17:00 150 122/35 12/27/18 16:59 123 16 96 2.0 28 Intake and Output 12/27/18 12/28/18 19:00 07:00 Intake Total 250 ml 220 ml Output Total 350 ml 200 ml Balance -100 ml 20 ml Intake Oral 250 ml IV Total 220 ml Output Urine Total 350 ml 200 ml # Bowel Movements 2 1 Laboratory Tests 12/28/18 05:05: White Blood Count 10.1, Red Blood Count 3.23L, Hemoglobin 9.2L, Hematocrit 27.9L , Mean Corpuscular Volume 87, Mean Corpuscular Hemoglobin 28.5, Mean Corpuscular Hemoglobin Concent 33.0, Red Cell Distribution Width 16.4H, Platelet Count 45L, Mean Platelet Volume 7.9, Neutrophils (%) (Auto) , Lymphocytes (%) (Auto) , Monocytes (%) (Auto) , Eosinophils (%) (Auto) , Basophils (%) (Auto) , Differential Total Cells Counted 100, Neutrophils % ( Manual) 95H, Lymphocytes % (Manual) 2L, Monocytes % (Manual) 2, Eosinophils % ( Manual) 0, Basophils % (Manual) 0, Band Neutrophils 1, Platelet Estimate DecreasedL, Platelet Morphology Normal, Hypochromasia 2+, Anisocytosis 1+, Spherocytes 1+, Sodium Level 140, Potassium Level 3.3L, Chloride Level 106, Carbon Dioxide Level 24, Anion Gap 10, Blood Urea Nitrogen 19H, Creatinine 0.9, Estimat Glomerular Filtration Rate , Glucose Level 109H, Calcium Level 7.4L, C- Reactive Protein, Quantitative 32.7H Height (Feet): 5 Height (Inches): 6.00 Weight (Pounds): 116 General Appearance: lethargic EENT: normal ENT inspection Neck: normal alignment Cardiovascular: normal peripheral pulses, normal rate, regular rhythm Respiratory/Chest: chest wall non-tender, decreased breath sounds Abdomen: normal bowel sounds, non tender, soft Extremities: normal inspection Edema: no edema noted Arm (L), no edema noted Arm (R), no edema noted Leg (L), no edema noted Leg (R), no edema noted Pedal (L), no edema noted Pedal (R), no edema noted Generalized Neurologic: motor weakness Landry Green DO Dec 28, 2018 16:19
--- NOTE | 2018-12-28 17:17 | NUR ---
NURSE NOTES: New external pouch for urine applied. Pt also had small BM. No acute distress. Will continue to monitor.
--- NOTE | 2018-12-28 19:06 | NUR ---
HAND-OFF: Report given to Luis Felipe MOON.
--- NOTE | 2018-12-28 20:00 | NUR ---
NURSE NOTES: Report received from Umang MOON. Pt is awake, alert and oriented x4, and able to make needs known. Pt connected to ekg monitor with HR 79-89 afib controlled. Pt has NC 2L with Spo2 of 97%. inguinal hernia noted, External urine pouch intact. RFA 20G running 40meq in 500ml bag. Patient has Safety measure in place with bed locked and in lowest position, side rails x 3 up and bed alarm on and call light within reach Will continue to monitor and continue plan of care.
--- NOTE | 2018-12-28 20:01 | NUR ---
NURSE NOTES: Section Cutter at bedside drawing up Vanco trough.
[2018-12-28] MEDS ORDERED: Vancomycin 750mg/NS 275ml IVPB SCH ×2 (22:00)
--- NOTE | 2018-12-28 22:00 | NUR ---
TRANSFER TO FLOOR: Patient transferred to [facility], per . Report given to . Belongings and medications given to . Family and or S/O informed of transfer.
--- NOTE | 2018-12-28 22:30 | NUR ---
NURSE NOTES: Patient was transferred from ICU to SDU room 244-2 via bed accompanied by 3 RNs. Report received from SARAI Briscoe at bed side. Patient is currently in bed in semi lipscomb position. Alert, verbally responsive, able to make needs known. Denies any pain at this time. Patient is on oxygen via NC at 2L/min. Sp02 is 97%. IV site to right hand 20g is intact. Bed is in lowest position. Call light is within easy reach when in bed. Will continue to monitor.
[2018-12-28] MEDS ORDERED: dilTIAZem HCl 25mg/5ml Inj IV PRN (23:00)
[2018-12-28] MEDS ORDERED: Albuterol/Ipratropium 3ml neb HHN PRN (23:30)
[2018-12-29] VITALS: BP 122/60
[2018-12-29 04:00] VITALS: BP 138/81
[2018-12-29 04:33] LABS: HEMATOCRIT 28.8 % (42.0-52.0); HEMOGLOBIN 9.4 G/DL (14.2-18.0); MEAN CORPUSCULAR VOLUME 87 FL (80-99); PLATELET COUNT 38 K/UL (150-450); RED CELL DISTRIBUTION WIDTH 17.1 % (11.6-14.8); WHITE BLOOD COUNT 6.3 K/UL (4.8-10.8)
[2018-12-29 05:01] LABS: ALANINE AMINOTRANSFERASE 41 U/L (12-78); ALBUMIN 1.6 G/DL (3.4-5.0); ALBUMIN/GLOBULIN RATIO 0.4 (1.0-2.7); ALKALINE PHOSPHATASE 483 U/L (46-116); ANION GAP 11 mmol/L (5-15); ASPARTATE AMINO TRANSFERASE 38 U/L (15-37); BILIRUBIN,TOTAL 0.7 MG/DL (0.2-1.0); BLOOD UREA NITROGEN 19 mg/dL (7-18); CALCIUM 8.2 MG/DL (8.5-10.1); CARBON DIOXIDE 24 MMOL/L (21-32); CHLORIDE 107 MMOL/L (98-107); PHOSPHORUS 1.2 MG/DL (2.5-4.9); POTASSIUM 3.8 MMOL/L (3.5-5.1); SODIUM 141 MMOL/L (136-145)
[2018-12-29] MEDS: Meropenem 1 GM in NS 55 ML IVPB SCH ×3 (05:16→21:33)
--- NOTE | 2018-12-29 07:23 | NUR ---
HAND-OFF: Report given to Tushar Barber RN.
--- NOTE | 2018-12-29 07:23 | NUR ---
NURSE NOTES: Received patient from Verito MOON. Patient VS stable at this time with no sign of acute distress. Patient alert and oriented at this time. Patient sitting up and eating breakfast at this time. Patient denies pain or discomfort. Patient showing SR on the monitor at this time. Patient on nasal canula 2L at this time. Patient has CCHO medium with pureed moist, nectar thick liquid diet at this time for aspiration precaution. Patient has an inguinal hernia at this time with enlarged scrotum. Patient has urine pouch for incontinence that is patent and draining at this time. Patient has a 20G PIV on the right forearm that is patent, asymptomatic, intact, and saline locked at this time. Patient has a phosphorus of 1.[address] this [address] Will notify Dr Green and Dr Emerson at this time. Patient bed in low position with bed alarm on and call light in reach at this time.
[2018-12-29 08:00] VITALS: BP 144/80
--- NOTE | 2018-12-29 08:20 | NUR ---
NURSE NOTES: Dr Emerson notified regarding phorphorus of 1.6 this morning. Doctor reported that he would order coverage for phorphorus when he makes rounds today.
[2018-12-29] MEDS ORDERED: Digoxin 0.125mg tab ORAL SCH (09:00)
[2018-12-29] MEDS: Pantoprazole Inj IV SCH (09:41)
[2018-12-29] MEDS: Dronabinol 2.5mg Cap ORAL SCH ×3 (09:42→17:53)
[2018-12-29] MEDS: Digoxin 0.125mg tab ORAL SCH (09:42)
[2018-12-29] MEDS: Amiodarone 200mg tab ORAL SCH (09:42)
[2018-12-29] MEDS: Vancomycin 750 MG in NS 275 ML IVPB SCH ×2 (09:47→22:16)
--- NOTE | 2018-12-29 10:40 | GI Progress Note ---
Assessment/Plan Problems: (1) Severe anemia ICD Codes: D64.9 - Anemia, unspecified SNOMED: 703736239 (2) Anemia ICD Codes: D64.9 - Anemia, unspecified SNOMED: 031246983 (3) Elevated LFTs ICD Codes: R94.5 - Abnormal results of liver function studies SNOMED: 676785103, 362142396 (4) Dysphagia ICD Codes: R13.10 - Dysphagia, unspecified SNOMED: 24610170, 818756848 Status: progressing Status Narrative Discussed with Dr. Caruso. Assessment/Plan s/p EGD SUMMARY OF FINDINGS: Severe gastritis versus portal hypertensive gastropathy versus ischemia, status post biopsy. Diet per ST, add Marinol Continue on PPI twice a day. Carafate. Follow up biopsy results and treat accordingly. prn transfusions Electrolyte correction follow labs The patient was seen and examined at bedside and all new and available data was reviewed in the patients chart. I agree with the above findings, impression and plan. (Patient seen earlier today. Signature stamp does not reflect patient encounter time.). - Mike Caruso MD Subjective Subjective Denies any abdominal pain Poor appetite States he dislikes the food here Objective Last 24 Hour Vital Signs Date Time Temp Pulse Resp B/P (MAP) Pulse Ox O2 Delivery O2 Flow Rate FiO2 12/29/18 09:42 101 12/29/18 09:41 101 144/80 12/29/18 06:44 Nasal Cannula 2.0 12/29/18 06:30 Nasal Cannula 2.0 28 12/29/18 06:30 98 22 Nasal Cannula 2.0 28 12/29/18 06:30 100 Nasal Cannula 2.0 28 12/29/18 04:00 98.2 74 24 138/81 (100) 99 12/29/18 04:00 2.0 12/29/18 04:00 Nasal Cannula 2.0 12/29/18 03:45 67 12/29/18 00:00 98.6 63 20 122/60 (80) 98 12/29/18 00:00 Nasal Cannula 2.0 12/28/18 23:23 75 12/28/18 21:16 72 137/70 12/28/18 21:00 86 20 142/71 (94) 100 12/28/18 21:00 Nasal Cannula 2.0 12/28/18 20:00 72 12/28/18 20:00 98.4 80 24 137/70 (92) 100 12/28/18 20:00 2.0 12/28/18 19:15 100 Nasal Cannula 2.0 28 12/28/18 19:15 Nasal Cannula 2.0 28 12/28/18 19:15 92 22 Nasal Cannula 2.0 28 12/28/18 19:00 88 24 139/74 (95) 100 12/28/18 18:00 77 19 131/74 (93) 100 12/28/18 17:00 71 18 115/72 (86) 100 12/28/18 16:00 2.0 12/28/18 16:00 74 12/28/18 16:00 97.2 76 20 135/71 (92) 100 12/28/18 15:00 86 22 119/70 (86) 100 12/28/18 14:00 79 21 123/77 (92) 100 12/28/18 13:00 87 24 123/85 (98) 100 12/28/18 12:00 80 12/28/18 12:00 2.0 12/28/18 12:00 97.0 78 18 120/71 (87) 100 12/28/18 11:00 71 17 105/66 (79) 100 Intake and Output 12/28/18 12/29/18 19:00 07:00 Intake Total 310 ml 175 ml Output Total 700 ml 450 ml Balance -390 ml -275 ml Intake Oral 200 ml 120 ml IV Total 110 ml 55 ml Output Urine Total 700 ml 450 ml # Bowel Movements 1 2 Laboratory Tests Test 12/28/18 20:05 12/29/18 03:40 Vancomycin Level Trough 9.1 ug/mL (5.0-12.0) White Blood Count 6.3 K/UL (4.8-10.8) Red Blood Count 3.30 M/UL (4.70-6.10) L Hemoglobin 9.4 G/DL (14.2-18.0) L Hematocrit 28.8 % (42.0-52.0) L Mean Corpuscular Volume 87 FL (80-99) Mean Corpuscular Hemoglobin 28.6 PG (27.0-31.0) Mean Corpuscular Hemoglobin Concent 32.8 G/DL (32.0-36.0) Red Cell Distribution Width 17.1 % (11.6-14.8) H Platelet Count 38 K/UL (150-450) L Mean Platelet Volume 9.8 FL (6.5-10.1) Neutrophils (%) (Auto) % (45.0-75.0) Lymphocytes (%) (Auto) % (20.0-45.0) Monocytes (%) (Auto) % (1.0-10.0) Eosinophils (%) (Auto) % (0.0-3.0) Basophils (%) (Auto) % (0.0-2.0) Differential Total Cells Counted 100 Neutrophils % (Manual) 79 % (45-75) H Lymphocytes % (Manual) 16 % (20-45) L Monocytes % (Manual) 5 % (1-10) Eosinophils % (Manual) 0 % (0-3) Basophils % (Manual) 0 % (0-2) Band Neutrophils 0 % (0-8) Platelet Estimate Decreased L Platelet Morphology Normal Anisocytosis 1+ Sodium Level 141 MMOL/L (136-145) Potassium Level 3.8 MMOL/L (3.5-5.1) Chloride Level 107 MMOL/L (98-107) Carbon Dioxide Level 24 MMOL/L (21-32) Anion Gap 11 mmol/L (5-15) Blood Urea Nitrogen 19 mg/dL (7-18) H Creatinine 1.0 MG/DL (0.55-1.30) Estimat Glomerular Filtration Rate mL/min (>60) Glucose Level 139 MG/DL (74-106) H Calcium Level 8.2 MG/DL (8.5-10.1) L Phosphorus Level 1.2 MG/DL (2.5-4.9) L Magnesium Level 2.0 MG/DL (1.8-2.4) Total Bilirubin 0.7 MG/DL (0.2-1.0) Aspartate Amino Transf (AST/SGOT) 38 U/L (15-37) H Alanine Aminotransferase (ALT/SGPT) 41 U/L (12-78) Alkaline Phosphatase 483 U/L (46-116) H Total Protein 5.9 G/DL (6.4-8.2) L Albumin 1.6 G/DL (3.4-5.0) L Globulin 4.3 g/dL Albumin/Globulin Ratio 0.4 (1.0-2.7) L Microbiology Date/Time Source Procedure Growth Status 12/28/18 11:45 Blood Blood Culture - Preliminary Resulted 12/28/18 11:30 Blood Blood Culture - Preliminary Resulted Height (Feet): 5 Height (Inches): 6.00 Weight (Pounds): 120 General Appearance: WD/WN, no apparent distress, alert, thin Cardiovascular: normal rate Respiratory/Chest: normal breath sounds, no respiratory distress Abdominal Exam: normal bowel sounds, non tender, soft Extremities: non-tender Elke Jacobson NP Dec 29, 2018 10:40
--- NOTE | 2018-12-29 11:07 | Pulmonolgy Critical Care Note ---
Critical Care - Asmt/Plan Problems: (1) Acute respiratory failure (2) Multilobar lung infiltrate (3) Severe anemia (4) ATN (acute tubular necrosis) (5) Atrial fibrillation with rapid ventricular response Respiratory: monitor respiratory rate Cardiac: continue to monitor HR/BP Renal: F/U I&O, keep IV fluid Infectious Disease: check cultures Gastrointestinal: continue feedings/current rate Endocrine: monitor blood sugar, check HgA1C Hematologic: monitor H/H, transfuse if hgb<8.5 Neurologic: PRN Morphine, keep patient comfortable Affect: PRN ativan Prophylaxis: Heparin Notes Reviewed: cardio, renal Discussed with: consultants, keycase assemblermanager operations research - Objective Last 24 Hour Vital Signs Date Time Temp Pulse Resp B/P (MAP) Pulse Ox O2 Delivery O2 Flow Rate FiO2 12/29/18 09:42 101 12/29/18 09:41 101 144/80 12/29/18 08:00 96 12/29/18 08:00 2.0 12/29/18 08:00 97.2 101 20 144/80 (101) 98 12/29/18 06:44 Nasal Cannula 2.0 12/29/18 06:30 Nasal Cannula 2.0 28 12/29/18 06:30 98 22 Nasal Cannula 2.0 28 12/29/18 06:30 100 Nasal Cannula 2.0 28 12/29/18 04:00 98.2 74 24 138/81 (100) 99 12/29/18 04:00 2.0 12/29/18 04:00 Nasal Cannula 2.0 12/29/18 03:45 67 12/29/18 00:00 98.6 63 20 122/60 (80) 98 12/29/18 00:00 Nasal Cannula 2.0 12/28/18 23:23 75 12/28/18 21:16 72 137/70 12/28/18 21:00 86 20 142/71 (94) 100 12/28/18 21:00 Nasal Cannula 2.0 12/28/18 20:00 72 12/28/18 20:00 98.4 80 24 137/70 (92) 100 12/28/18 20:00 2.0 12/28/18 19:15 100 Nasal Cannula 2.0 28 12/28/18 19:15 Nasal Cannula 2.0 28 12/28/18 19:15 92 22 Nasal Cannula 2.0 28 12/28/18 19:00 88 24 139/74 (95) 100 12/28/18 18:00 77 19 131/74 (93) 100 12/28/18 17:00 71 18 115/72 (86) 100 12/28/18 16:00 2.0 12/28/18 16:00 74 12/28/18 16:00 97.2 76 20 135/71 (92) 100 12/28/18 15:00 86 22 119/70 (86) 100 12/28/18 14:00 79 21 123/77 (92) 100 12/28/18 13:00 87 24 123/85 (98) 100 12/28/18 12:00 80 12/28/18 12:00 2.0 12/28/18 12:00 97.0 78 18 120/71 (87) 100 Status: awake, sedated Condition: critical HEENT: atraumatic Neck: full ROM Lungs: clear, chest wall tender Heart: HR/BP unstable Abdomen: soft, non-tender, active bowel sounds Extremities: no C/C/E, edema Micro: Microbiology Date/Time Source Procedure Growth Status 12/28/18 11:45 Blood Blood Culture - Preliminary Resulted 12/28/18 11:30 Blood Blood Culture - Preliminary Resulted 12/27/18 13:00 Blood Blood Culture - Preliminary Gram Negative Bacillus 1 Resulted 12/27/18 12:45 Blood Blood Culture - Preliminary Gram Negative Bacillus 1 Resulted 12/27/18 12:20 Stool Clostridium difficile Toxin Assay - Final Complete 12/26/18 15:12 Urine,Clean Catch Urine Culture - Preliminary Klebsiella Pneumoniae Streptococcus Species Resulted Critical Care - Subjective ROS Limited/Unobtainable: Yes Interval Events: afib controlled Condition: critical EKG Rhythm: Sinus Rhythm FI02: 28 Vent Support Breath Rate: 16 Vent Support Mode: CPAP Vent Tidal Volume: 600 Sputum Amount: None PEEP: 5.0 PIP: 30 Tube Feeding Amount: 40 I&O: Intake and Output 12/28/18 12/29/18 19:00 07:00 Intake Total 310 ml 175 ml Output Total 700 ml 450 ml Balance -390 ml -275 ml Intake Oral 200 ml 120 ml IV Total 110 ml 55 ml Output Urine Total 700 ml 450 ml # Bowel Movements 1 2 CXR: unchanged ET-Tube: 7.5 ET Position: 22 Labs: Laboratory Tests Test 12/28/18 20:05 12/29/18 03:40 Vancomycin Level Trough 9.1 ug/mL (5.0-12.0) White Blood Count 6.3 K/UL (4.8-10.8) Red Blood Count 3.30 M/UL (4.70-6.10) L Hemoglobin 9.4 G/DL (14.2-18.0) L Hematocrit 28.8 % (42.0-52.0) L Mean Corpuscular Volume 87 FL (80-99) Mean Corpuscular Hemoglobin 28.6 PG (27.0-31.0) Mean Corpuscular Hemoglobin Concent 32.8 G/DL (32.0-36.0) Red Cell Distribution Width 17.1 % (11.6-14.8) H Platelet Count 38 K/UL (150-450) L Mean Platelet Volume 9.8 FL (6.5-10.1) Neutrophils (%) (Auto) % (45.0-75.0) Lymphocytes (%) (Auto) % (20.0-45.0) Monocytes (%) (Auto) % (1.0-10.0) Eosinophils (%) (Auto) % (0.0-3.0) Basophils (%) (Auto) % (0.0-2.0) Differential Total Cells Counted 100 Neutrophils % (Manual) 79 % (45-75) H Lymphocytes % (Manual) 16 % (20-45) L Monocytes % (Manual) 5 % (1-10) Eosinophils % (Manual) 0 % (0-3) Basophils % (Manual) 0 % (0-2) Band Neutrophils 0 % (0-8) Platelet Estimate Decreased L Platelet Morphology Normal Anisocytosis 1+ Sodium Level 141 MMOL/L (136-145) Potassium Level 3.8 MMOL/L (3.5-5.1) Chloride Level 107 MMOL/L (98-107) Carbon Dioxide Level 24 MMOL/L (21-32) Anion Gap 11 mmol/L (5-15) Blood Urea Nitrogen 19 mg/dL (7-18) H Creatinine 1.0 MG/DL (0.55-1.30) Estimat Glomerular Filtration Rate mL/min (>60) Glucose Level 139 MG/DL (74-106) H Calcium Level 8.2 MG/DL (8.5-10.1) L Phosphorus Level 1.2 MG/DL (2.5-4.9) L Magnesium Level 2.0 MG/DL (1.8-2.4) Total Bilirubin 0.7 MG/DL (0.2-1.0) Aspartate Amino Transf (AST/SGOT) 38 U/L (15-37) H Alanine Aminotransferase (ALT/SGPT) 41 U/L (12-78) Alkaline Phosphatase 483 U/L (46-116) H Total Protein 5.9 G/DL (6.4-8.2) L Albumin 1.6 G/DL (3.4-5.0) L Globulin 4.3 g/dL Albumin/Globulin Ratio 0.4 (1.0-2.7) L Bryan Emerson MD Dec 29, 2018 11:07
[2018-12-29] MEDS ORDERED: Isovue-300 100ml vial INJ PRN (11:15)
[2018-12-29 12:00] VITALS: BP 151/97
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
--- NOTE | 2018-12-29 13:59 | NUR ---
NURSE NOTES: Notified Dr Emerson that this patient does not want to consent to contrast. Dr Emerson ordered CT chest without contrast. Dr Emerson ordered that the patient can go off tele for the CT test.
--- NOTE | 2018-12-29 14:04 | Surgery Progress Note ---
Surgery Progress Note Subjective Additional Comments Patient seen and examined no acute events out of ICU looking comfortable no complaints tolerating diet cardiac improved labs noted Objective Last 24 Hour Vital Signs Date Time Temp Pulse Resp B/P (MAP) Pulse Ox O2 Delivery O2 Flow Rate FiO2 12/29/18 12:00 78 12/29/18 12:00 97.7 82 20 151/97 (115) 95 12/29/18 09:42 101 12/29/18 09:41 101 144/80 12/29/18 08:00 96 12/29/18 08:00 2.0 12/29/18 08:00 97.2 101 20 144/80 (101) 98 12/29/18 06:44 Nasal Cannula 2.0 12/29/18 06:30 Nasal Cannula 2.0 28 12/29/18 06:30 98 22 Nasal Cannula 2.0 28 12/29/18 06:30 100 Nasal Cannula 2.0 28 12/29/18 04:00 98.2 74 24 138/81 (100) 99 12/29/18 04:00 2.0 12/29/18 04:00 Nasal Cannula 2.0 12/29/18 03:45 67 12/29/18 00:00 98.6 63 20 122/60 (80) 98 12/29/18 00:00 Nasal Cannula 2.0 12/28/18 23:23 75 12/28/18 21:16 72 137/70 12/28/18 21:00 86 20 142/71 (94) 100 12/28/18 21:00 Nasal Cannula 2.0 12/28/18 20:00 72 12/28/18 20:00 98.4 80 24 137/70 (92) 100 12/28/18 20:00 2.0 12/28/18 19:15 100 Nasal Cannula 2.0 28 12/28/18 19:15 Nasal Cannula 2.0 28 12/28/18 19:15 92 22 Nasal Cannula 2.0 28 12/28/18 19:00 88 24 139/74 (95) 100 12/28/18 18:00 77 19 131/74 (93) 100 12/28/18 17:00 71 18 115/72 (86) 100 12/28/18 16:00 2.0 12/28/18 16:00 74 12/28/18 16:00 97.2 76 20 135/71 (92) 100 12/28/18 15:00 86 22 119/70 (86) 100 I&O Intake and Output 12/28/18 12/29/18 18:59 06:59 Intake Total 365 ml 175 ml Output Total 700 ml 450 ml Balance -335 ml -275 ml Intake Oral 200 ml 120 ml IV Total 165 ml 55 ml Output Urine Total 700 ml 450 ml # Bowel Movements 1 2 Drains: none Cardiovascular: RSR Respiratory: clear Abdomen: soft, flat, non-tender, present bowel sounds, non-distended Extremities: no cyanosis Laboratory Tests Test 12/28/18 20:05 12/29/18 03:40 Vancomycin Level Trough 9.1 ug/mL (5.0-12.0) White Blood Count 6.3 K/UL (4.8-10.8) Red Blood Count 3.30 M/UL (4.70-6.10) L Hemoglobin 9.4 G/DL (14.2-18.0) L Hematocrit 28.8 % (42.0-52.0) L Mean Corpuscular Volume 87 FL (80-99) Mean Corpuscular Hemoglobin 28.6 PG (27.0-31.0) Mean Corpuscular Hemoglobin Concent 32.8 G/DL (32.0-36.0) Red Cell Distribution Width 17.1 % (11.6-14.8) H Platelet Count 38 K/UL (150-450) L Mean Platelet Volume 9.8 FL (6.5-10.1) Neutrophils (%) (Auto) % (45.0-75.0) Lymphocytes (%) (Auto) % (20.0-45.0) Monocytes (%) (Auto) % (1.0-10.0) Eosinophils (%) (Auto) % (0.0-3.0) Basophils (%) (Auto) % (0.0-2.0) Differential Total Cells Counted 100 Neutrophils % (Manual) 79 % (45-75) H Lymphocytes % (Manual) 16 % (20-45) L Monocytes % (Manual) 5 % (1-10) Eosinophils % (Manual) 0 % (0-3) Basophils % (Manual) 0 % (0-2) Band Neutrophils 0 % (0-8) Platelet Estimate Decreased L Platelet Morphology Normal Anisocytosis 1+ Sodium Level 141 MMOL/L (136-145) Potassium Level 3.8 MMOL/L (3.5-5.1) Chloride Level 107 MMOL/L (98-107) Carbon Dioxide Level 24 MMOL/L (21-32) Anion Gap 11 mmol/L (5-15) Blood Urea Nitrogen 19 mg/dL (7-18) H Creatinine 1.0 MG/DL (0.55-1.30) Estimat Glomerular Filtration Rate mL/min (>60) Glucose Level 139 MG/DL (74-106) H Calcium Level 8.2 MG/DL (8.5-10.1) L Phosphorus Level 1.2 MG/DL (2.5-4.9) L Magnesium Level 2.0 MG/DL (1.8-2.4) Total Bilirubin 0.7 MG/DL (0.2-1.0) Aspartate Amino Transf (AST/SGOT) 38 U/L (15-37) H Alanine Aminotransferase (ALT/SGPT) 41 U/L (12-78) Alkaline Phosphatase 483 U/L (46-116) H Total Protein 5.9 G/DL (6.4-8.2) L Albumin 1.6 G/DL (3.4-5.0) L Globulin 4.3 g/dL Albumin/Globulin Ratio 0.4 (1.0-2.7) L Free Prostate Specific Antigen Pending Percent Free Prostate Specific Ag Pending Prostate Specific Antigen Total Pending Plan Problems: (1) Inguinal hernia Assessment & Plan: 78 year old male with massive inguinal hernia with bowel contents. CT with Massive indirect right inguinal hernia, containing the proximal colon and much if not most of the small bowel. No definite evidence of obstruction or strangulation Anasarca, with diffuse extensive bilateral pulmonary edema, bilateral pleural effusions, small amount of free intraperitoneal fluid, and extensive edema of the subcutaneous and mediastinal fat Colonic diverticulosis Diffuse skeletal osteosclerosis Distended bladder Prostatomegaly Large bilateral renal cysts. Calcification in the periventricular right kidney likely represent old involuted calcified cyst Nasogastric tube Incidental finding right lobe liver cyst On exam large inguinal hernia with bowel contents in scrotum not reducible but no signs of obstruction / strangulation. in reviewing CT likely loss of domain given patients body habitus compared to hernia size. patient awake but intubated on vent support. no tenderness but does have discomfort with manipulation. given above no acute surgical intervention planned as this is likely chronic and with loss of domain. unlikely to be incarcerated but will need to keep an eye on it as bowel can obstruction will follow with exams leukocytosis resolving CXR improved repeat AM labs Abx as per ID appreciate Cardiology input thank you Yordy Tucker Dec 29, 2018 14:04
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
--- NOTE | 2018-12-29 14:50 | General Progress Note ---
Assessment/Plan Problem List: (1) Respiratory failure with hypoxia ICD Codes: J96.91 - Respiratory failure, unspecified with hypoxia SNOMED: 00869734450097224 Qualifiers: Qualified Codes: J96.01 - Acute respiratory failure with hypoxia (2) Atrial fibrillation with rapid ventricular response ICD Codes: I48.91 - Unspecified atrial fibrillation SNOMED: 787000275674433, 162534991 (3) Severe anemia ICD Codes: D64.9 - Anemia, unspecified SNOMED: 836488699 (4) ATN (acute tubular necrosis) ICD Codes: N17.0 - Acute kidney failure with tubular necrosis SNOMED: 15387006 (5) DM (diabetes mellitus) ICD Codes: E11.9 - Type 2 diabetes mellitus without complications SNOMED: 84675716 (6) Fever ICD Codes: R50.9 - Fever, unspecified SNOMED: 823377261 Status: stable, progressing Assessment/Plan vent transfuse prn cardio heme eval f/u cbc bmp am id eval aru eval Subjective Constitutional: Reports: weakness Respiratory: Reports: shortness of breath Allergies: Coded Allergies: No Known Allergies (Unverified , 12/15/18) All Systems: reviewed and negative except above Subjective o2 nc Objective Last 24 Hour Vital Signs Date Time Temp Pulse Resp B/P (MAP) Pulse Ox O2 Delivery O2 Flow Rate FiO2 12/29/18 12:00 78 12/29/18 12:00 97.7 82 20 151/97 (115) 95 12/29/18 09:42 101 12/29/18 09:41 101 144/80 12/29/18 08:00 96 12/29/18 08:00 2.0 12/29/18 08:00 97.2 101 20 144/80 (101) 98 12/29/18 06:44 Nasal Cannula 2.0 12/29/18 06:30 Nasal Cannula 2.0 28 12/29/18 06:30 98 22 Nasal Cannula 2.0 28 12/29/18 06:30 100 Nasal Cannula 2.0 28 12/29/18 04:00 98.2 74 24 138/81 (100) 99 12/29/18 04:00 2.0 12/29/18 04:00 Nasal Cannula 2.0 12/29/18 03:45 67 12/29/18 00:00 98.6 63 20 122/60 (80) 98 12/29/18 00:00 Nasal Cannula 2.0 12/28/18 23:23 75 12/28/18 21:16 72 137/70 12/28/18 21:00 86 20 142/71 (94) 100 12/28/18 21:00 Nasal Cannula 2.0 12/28/18 20:00 72 12/28/18 20:00 98.4 80 24 137/70 (92) 100 12/28/18 20:00 2.0 12/28/18 19:15 100 Nasal Cannula 2.0 28 12/28/18 19:15 Nasal Cannula 2.0 28 12/28/18 19:15 92 22 Nasal Cannula 2.0 28 12/28/18 19:00 88 24 139/74 (95) 100 12/28/18 18:00 77 19 131/74 (93) 100 12/28/18 17:00 71 18 115/72 (86) 100 12/28/18 16:00 2.0 12/28/18 16:00 74 12/28/18 16:00 97.2 76 20 135/71 (92) 100 12/28/18 15:00 86 22 119/70 (86) 100 Intake and Output 12/28/18 12/29/18 18:59 06:59 Intake Total 365 ml 175 ml Output Total 700 ml 450 ml Balance -335 ml -275 ml Intake Oral 200 ml 120 ml IV Total 165 ml 55 ml Output Urine Total 700 ml 450 ml # Bowel Movements 1 2 Laboratory Tests 12/28/18 20:05: Vancomycin Level Trough 9.1 12/29/18 03:40: White Blood Count 6.3, Red Blood Count 3.30L, Hemoglobin 9.4L, Hematocrit 28.8L , Mean Corpuscular Volume 87, Mean Corpuscular Hemoglobin 28.6, Mean Corpuscular Hemoglobin Concent 32.8, Red Cell Distribution Width 17.1H, Platelet Count 38L, Mean Platelet Volume 9.8, Neutrophils (%) (Auto) , Lymphocytes (%) (Auto) , Monocytes (%) (Auto) , Eosinophils (%) (Auto) , Basophils (%) (Auto) , Differential Total Cells Counted 100, Neutrophils % ( Manual) 79H, Lymphocytes % (Manual) 16L, Monocytes % (Manual) 5, Eosinophils % ( Manual) 0, Basophils % (Manual) 0, Band Neutrophils 0, Platelet Estimate DecreasedL, Platelet Morphology Normal, Anisocytosis 1+, Sodium Level 141, Potassium Level 3.8, Chloride Level 107, Carbon Dioxide Level 24, Anion Gap 11, Blood Urea Nitrogen 19H, Creatinine 1.0, Estimat Glomerular Filtration Rate , Glucose Level 139H, Calcium Level 8.2L, Phosphorus Level 1.2L, Magnesium Level 2.0, Total Bilirubin 0.7, Aspartate Amino Transf (AST/SGOT) 38H, Alanine Aminotransferase (ALT/SGPT) 41, Alkaline Phosphatase 483H, Total Protein 5.9L, Albumin 1.6L, Globulin 4.3, Albumin/Globulin Ratio 0.4L, Free Prostate Specific Antigen [Pending], Percent Free Prostate Specific Ag [Pending], Prostate Specific Antigen Total [Pending] Height (Feet): 5 Height (Inches): 6.00 Weight (Pounds): 120 General Appearance: lethargic EENT: PERRL/EOMI Neck: normal alignment Cardiovascular: normal peripheral pulses, normal rate, regular rhythm Respiratory/Chest: chest wall non-tender, decreased breath sounds Abdomen: normal bowel sounds, non tender, soft Extremities: normal inspection Edema: no edema noted Arm (L), no edema noted Arm (R), no edema noted Leg (L), no edema noted Leg (R), no edema noted Pedal (L), no edema noted Pedal (R), no edema noted Generalized Neurologic: responsive, motor weakness Skin: normal pigmentation, warm/dry Landry Green DO Dec 29, 2018 14:49
[2018-12-29 16:00] VITALS: BP 128/76
[2018-12-29] MEDS ORDERED: NS 275ml ONE ×2 (17:35→17:55)
[2018-12-29] MEDS ORDERED: Tubing IV Secondary IV ONE ×2 (17:35→17:55)
[2018-12-29] MEDS ORDERED: NS 500ML ONE (18:03)
--- NOTE | 2018-12-29 19:00 | NUR ---
HAND-OFF: Report given to SARAI Sellers. Patient VS stable at this time. Patient denies pain or discomfort at this time. Patient urine pouch replaced and intact at this time. patient had chest CT this afternoon without contrast. Endorsed to follow up.
--- NOTE | 2018-12-29 19:00 | NUR ---
NURSE NOTES: Report received from Tushar Barber RN. Patient seen in bed in semi lipscomb position. Alert, verbally responsive, able to make needs known. Denies any pain at this time. Continues on oxygen via NC @ 2L/min with sp02 98% at this time. IV site to right FA 20g is intact. Bed is in lowest position. Call light is within easy reach while in bed. Will continue to monitor.
[2018-12-29 20:00] VITALS: BP 137/84
[2018-12-30] VITALS: BP 145/88
[2018-12-30 04:00] VITALS: BP 155/86
[2018-12-30] MEDS: Meropenem 1 GM in NS 55 ML IVPB SCH (05:38)
[2018-12-30 06:14] LABS: HEMATOCRIT 29.4 % (42.0-52.0); HEMOGLOBIN 9.7 G/DL (14.2-18.0); MEAN CORPUSCULAR VOLUME 87 FL (80-99); PLATELET COUNT 34 K/UL (150-450); RED BLOOD COUNT 3.39 M/UL (4.70-6.10); RED CELL DISTRIBUTION WIDTH 16.8 % (11.6-14.8); WHITE BLOOD COUNT 5.2 K/UL (4.8-10.8)
[2018-12-30 06:27] LABS: ANION GAP 6 mmol/L (5-15); BLOOD UREA NITROGEN 19 mg/dL (7-18); CALCIUM 8.3 MG/DL (8.5-10.1); CARBON DIOXIDE 26 MMOL/L (21-32); CHLORIDE 107 MMOL/L (98-107); CREATININE 0.9 MG/DL (0.55-1.30); POTASSIUM 3.7 MMOL/L (3.5-5.1); SODIUM 139 MMOL/L (136-145)
--- NOTE | 2018-12-30 06:28 | NUR ---
NURSE NOTES: Received call from Ricky (microbiology) patient has Active VRE in urine. Paged Dr Cierra Lemons, currently awaiting for call back.
--- NOTE | 2018-12-30 07:21 | NUR ---
NURSE NOTES: Paper report given to Charge Nurse
[2018-12-30 08:00] VITALS: BP 143/71
--- NOTE | 2018-12-30 08:13 | NUR ---
NURSE NOTES: Received patient from SARAI Blanca. Patient VS stable at this time with no sign of acute distress. Patient alert and oriented at this time. Patient sitting up and eating breakfast at this time. Patient denies pain or discomfort. Patient showing SR on the monitor at this time. Patient on nasal canula 2L at this time. Patient has CCHO medium with pureed moist, nectar thick liquid diet at this time for aspiration precaution. Patient has an inguinal hernia at this time with enlarged scrotum. Patient has urine pouch for incontinence that is patent and draining at this time. Patient has a 20G PIV on the right forearm that is patent, asymptomatic, intact, and saline locked at this time. Patient had a phosphorous of 1.[address] Emerson was made aware but coverage was not ordered yesterday. Will remind him this morning. Patient bed in low position with bed alarm on and call light in reach at this time.
[2018-12-30] MEDS: Pantoprazole Inj IV SCH (09:30)
[2018-12-30] MEDS: Dronabinol 2.5mg Cap ORAL SCH ×3 (09:31→17:47)
[2018-12-30] MEDS: Amiodarone 200mg tab ORAL SCH (09:31)
[2018-12-30] MEDS: Digoxin 0.125mg tab ORAL SCH (09:31)
--- NOTE | 2018-12-30 09:32 | Diagnostic Imaging Report ---
Clinical Indication: Acute respiratory failure Technique: Spiral acquisitions obtained through the chest. No IV contrast utilized, per patient preference. Multiplanar reconstructions generated. Total dose length product 429.57 mGycm. CTDIvol(s) 11.44 mGy. Dose reduction achieved using automated exposure control Comparison: 12/16/2018 Findings: There are large bilateral pleural effusions, large on the left than on the right, both sides increased from the previous study. The amount of pleural fluid has also increased when compared to a more recent abdomen pelvis CT of 12/20/2018. There is resultant compressive atelectasis of entire left lower lobe save for a small sliver of aerated lung at the apex of the left lower lobe, and a considerable portion of the right lower lobe. Interstitial and airspace opacities are seen throughout much of the aerated portion of the right lower lobe. This is probably similar in extent to the previous exam although difficult to compare as much more of this lobe is now atelectatic.. Areas of dense consolidation is seen in the posterior and superior right upper lobe, markedly increased in extent compared to the previous study. The right middle lobe demonstrates evidence of interstitial congestion and mild groundglass opacity There is some posterior atelectasis seen in the left upper lobe. In addition, the aerated portions demonstrate dense consolidation in a predominantly perihilar distribution which is increased from the previous exam, as well as mild interstitial congestion. There is minimal anterior wall pericardial thickening versus fluid. The heart size is upper limits of normal. There are coronary artery calcifications. The ascending thoracic aorta is somewhat ectatic but not frankly aneurysmal. There are prominent but not frankly enlarged mediastinal lymph nodes. The included portion of the thyroid is unremarkable. No axillary or chest wall mass or adenopathy. The subcutaneous fat is mildly edematous, more so than on the previous study. The bones again demonstrate diffuse generalized osteosclerosis without definite discrete osteolytic or osteoblastic foci. Again demonstrated are old healed fracture deformities of the right seventh, eighth, ninth, and 10th ribs. The included upper abdominal anatomy demonstrates an incompletely visualized cyst presumably coming off of the upper pole of the left kidney, also evident previously. Impression: Large left greater than right bilateral pleural effusions, both sides increased from the previous exam of 12/16/2018 Increasing bilateral lobe compressive atelectasis resulting from the above Increasing airspace opacities predominantly within the bilateral upper lobes. These likely represent pneumonia versus increased focal airspace pulmonary edema Generalized interstitial congestion and minimal groundglass opacity within the nonconsolidated nonatelectatic portions of the lung, likely reflecting pulmonary edema Edematous subcutaneous fat, slightly increased since previous exam Diffuse osteosclerosis, also previously described. Given that this is a diffuse finding rather than demonstrating discrete areas of abnormality, favor systemic metabolic/hematologic etiology over osteoblastic disseminated neoplasm, although the latter is also possible. Systemic possible etiologies include myelofibrosis, sickle cell disease, mastocytosis, renal osteodystrophy, sclerosing bone dysplasias such as osteopetrosis. Minimal anterior wall pericardial thickening versus fluid Old healed right rib fracture deformities, left renal cyst incidentally noted The CT scanner at [facility] is accredited by the [employer] and the scans are performed using protocols designed to limit radiation exposure to as low as reasonably achievable to attain images of sufficient resolution adequate for diagnostic evaluation.
[2018-12-30] MEDS: Vancomycin 750 MG in NS 275 ML IVPB SCH (09:36)
--- NOTE | 2018-12-30 10:20 | Pulmonology Progress Note ---
Assessment/Plan Problems: (1) Prostate cancer (2) Acute respiratory failure (3) Respiratory failure with hypoxia (4) Atrial fibrillation with rapid ventricular response (5) Pleural effusion (6) Thrombocytopenia (7) DM (diabetes mellitus) Assessment/Plan thoracentesis PLT transfusion d/w radiologist, Prostate looks normal stopped Meropenem, amiodarone can cause low PLT, but it was started on 12/28 but might still contribute to low PLT might need bone marrow biopsy sliding scale diabetic diet Subjective ROS Limited/Unobtainable: No Constitutional: Reports: no symptoms HEENT: Repors: no symptoms Respiratory: Reports: no symptoms Allergies: Coded Allergies: No Known Allergies (Unverified , 12/15/18) Objective Last 24 Hour Vital Signs Date Time Temp Pulse Resp B/P (MAP) Pulse Ox O2 Delivery O2 Flow Rate FiO2 12/30/18 09:36 85 143/71 12/30/18 09:31 85 12/30/18 08:00 98.4 85 20 143/71 (95) 98 12/30/18 04:00 Nasal Cannula 2.0 12/30/18 04:00 2.0 12/30/18 04:00 97.9 87 20 155/86 (109) 97 12/30/18 03:39 80 12/30/18 01:04 73 22 98 Nasal Cannula 4.0 36 12/30/18 00:57 88 26 86 Nasal Cannula 3.0 32 12/30/18 00:00 98.1 63 24 145/88 (107) 99 12/30/18 00:00 2.0 12/30/18 00:00 Nasal Cannula 2.0 12/29/18 23:24 66 12/29/18 22:00 97 Nasal Cannula 2.0 28 12/29/18 22:00 Nasal Cannula 2.0 28 12/29/18 20:19 79 132/76 12/29/18 20:00 2.0 12/29/18 20:00 98.4 83 24 137/84 (101) 97 12/29/18 20:00 Nasal Cannula 2.0 12/29/18 19:25 75 12/29/18 19:00 57 24 Nasal Cannula 2.0 28 12/29/18 16:00 Nasal Cannula 2.0 12/29/18 16:00 2.0 12/29/18 16:00 98.2 77 20 128/76 (93) 96 12/29/18 15:47 66 12/29/18 12:00 78 12/29/18 12:00 2.0 12/29/18 12:00 Nasal Cannula 2.0 12/29/18 12:00 97.7 82 20 151/97 (115) 95 Intake and Output 12/29/18 12/30/18 19:00 07:00 Intake Total 810.000 ml 576.666 ml Output Total 100 ml 500 ml Balance 710.000 ml 76.666 ml Intake Oral 480 ml 100 ml IV Total 330.000 ml 476.666 ml Output Urine Total 100 ml 500 ml # Voids 2 General Appearance: cachetic Respiratory/Chest: chest wall non-tender, decreased breath sounds, accessory muscle use Cardiovascular: normal peripheral pulses, normal rate Abdomen: normal bowel sounds, soft, non tender Genitourinary: normal external genitalia Extremities: no clubbing Microbiology Date/Time Source Procedure Growth Status 12/28/18 11:45 Blood Blood Culture - Preliminary Gram Negative José Resulted 12/28/18 11:30 Blood Blood Culture - Preliminary Gram Negative José Resulted 12/27/18 13:00 Blood Blood Culture - Preliminary Klebsiella Pneumoniae Resulted 12/27/18 12:45 Blood Blood Culture - Preliminary Klebsiella Pneumoniae Resulted 12/28/18 21:30 Sputum Gram Stain - Final Resulted 12/28/18 21:30 Sputum Culture - Preliminary Gram Negative Bacillus 1 Resulted 12/27/18 12:20 Stool Clostridium difficile Toxin Assay - Final Complete Laboratory Tests 12/30/18 03:20: White Blood Count 5.2, Red Blood Count 3.39L, Hemoglobin 9.7L, Hematocrit 29.4L , Mean Corpuscular Volume 87, Mean Corpuscular Hemoglobin 28.7, Mean Corpuscular Hemoglobin Concent 33.1, Red Cell Distribution Width 16.8H, Platelet Count 34L, Mean Platelet Volume 8.2, Neutrophils (%) (Auto) , Lymphocytes (%) (Auto) , Monocytes (%) (Auto) , Eosinophils (%) (Auto) , Basophils (%) (Auto) , Differential Total Cells Counted 100, Neutrophils % ( Manual) 75, Lymphocytes % (Manual) 17L, Monocytes % (Manual) 8, Eosinophils % ( Manual) 0, Basophils % (Manual) 0, Band Neutrophils 0, Nucleated Red Blood Cells 1, Platelet Estimate DecreasedL, Platelet Morphology Normal, Anisocytosis 1+, Sodium Level 139, Potassium Level 3.7, Chloride Level 107, Carbon Dioxide Level 26, Anion Gap 6, Blood Urea Nitrogen 19H, Creatinine 0.9, Estimat Glomerular Filtration Rate , Glucose Level 114H, Calcium Level 8.3L Current Medications Medications (Trade) Dose Ordered Sig/Brock Route PRN Reason Start Time Stop Time Status Last Admin Dose Admin Acetaminophen (Tylenol) 650 mg Q4H PRN ORAL fever 12/28/18 23:15 01/15/19 07:14 Albuterol/ Ipratropium (Albuterol/ Ipratropium) 3 ml Q4H PRN HHN Shortness of Breath 12/28/18 23:30 12/30/18 11:29 12/30/18 00:57 Amiodarone HCl (Cordarone) 200 mg DAILY ORAL 12/29/18 09:00 01/27/19 10:14 12/30/18 09:31 Dextrose (Dextrose 50%) 25 ml Q30M PRN IV Hypoglycemia 12/28/18 22:45 01/15/19 07:14 Digoxin (Lanoxin) 0.125 mg DAILY ORAL 12/29/18 09:00 01/18/19 08:59 12/30/18 09:31 Diltiazem HCl (Cardizem) 10 mg EVERY HOUR PRN IV heart rate more than 120 BPM 12/28/18 23:00 01/26/19 11:14 Dronabinol (Marinol) 2.5 mg TID ORAL 12/29/18 09:00 01/27/19 12:59 12/30/18 09:31 Meropenem 1 gm/ Sodium Chloride 55 ml @ 110 mls/hr Q8HR IVPB 12/29/18 06:00 01/01/19 12:59 12/30/18 05:38 Metoprolol Tartrate (Lopressor) 100 mg EVERY 12 HOURS NG 12/29/18 09:00 01/17/19 08:59 12/30/18 09:36 Pantoprazole (Protonix) 40 mg DAILY IV 12/29/18 09:00 01/17/19 08:59 12/30/18 09:30 Vancomycin HCl (Vanco rx to dose) 1 ea DAILY PRN MISC Per rx protocol 12/29/18 09:00 01/26/19 11:14 Vancomycin HCl 750 mg/Sodium Chloride 275 ml @ 183.333 mls/hr Q12HR@1000,2200 IVPB 12/29/18 10:00 01/02/19 21:59 12/30/18 09:36 Bryan Emerson MD Dec 30, 2018 10:20
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
[2018-12-30 12:00] VITALS: BP 131/96
[2018-12-30] MEDS ORDERED: Sodium Phosphate 30 MM in NS 275 ML IVPB SCH (12:00)
--- NOTE | 2018-12-30 12:00 | GI Progress Note ---
Assessment/Plan Problems: (1) Severe anemia ICD Codes: D64.9 - Anemia, unspecified SNOMED: 348319653 (2) Anemia ICD Codes: D64.9 - Anemia, unspecified SNOMED: 489862881 (3) Elevated LFTs ICD Codes: R94.5 - Abnormal results of liver function studies SNOMED: 035747562, 561813232 (4) Dysphagia ICD Codes: R13.10 - Dysphagia, unspecified SNOMED: 50179826, 779523387 Status: stable, progressing Status Narrative Discussed with Dr. Caruso. Assessment/Plan s/p EGD SUMMARY OF FINDINGS: Severe gastritis versus portal hypertensive gastropathy versus ischemia, status post biopsy. Diet per ST, add Marinol Continue on PPI twice a day. Carafate. Follow up biopsy results and treat accordingly. prn transfusions Electrolyte correction follow labs The patient was seen and examined at bedside and all new and available data was reviewed in the patients chart. I agree with the above findings, impression and plan. (Patient seen earlier today. Signature stamp does not reflect patient encounter time.). - Mike Caruso MD Subjective Subjective Denies any abdominal pain Poor appetite States he dislikes the food here feels overall better Objective Last 24 Hour Vital Signs Date Time Temp Pulse Resp B/P (MAP) Pulse Ox O2 Delivery O2 Flow Rate FiO2 12/30/18 09:36 85 143/71 12/30/18 09:31 85 12/30/18 08:00 98.4 85 20 143/71 (95) 98 12/30/18 07:41 63 12/30/18 04:00 Nasal Cannula 2.0 12/30/18 04:00 2.0 12/30/18 04:00 97.9 87 20 155/86 (109) 97 12/30/18 03:39 80 12/30/18 01:04 73 22 98 Nasal Cannula 4.0 36 12/30/18 00:57 88 26 86 Nasal Cannula 3.0 32 12/30/18 00:00 98.1 63 24 145/88 (107) 99 12/30/18 00:00 2.0 12/30/18 00:00 Nasal Cannula 2.0 12/29/18 23:24 66 12/29/18 22:00 97 Nasal Cannula 2.0 28 12/29/18 22:00 Nasal Cannula 2.0 28 12/29/18 20:19 79 132/76 12/29/18 20:00 2.0 12/29/18 20:00 98.4 83 24 137/84 (101) 97 12/29/18 20:00 Nasal Cannula 2.0 12/29/18 19:25 75 12/29/18 19:00 57 24 Nasal Cannula 2.0 28 12/29/18 16:00 Nasal Cannula 2.0 12/29/18 16:00 2.0 12/29/18 16:00 98.2 77 20 128/76 (93) 96 12/29/18 15:47 66 12/29/18 12:00 78 12/29/18 12:00 2.0 12/29/18 12:00 Nasal Cannula 2.0 12/29/18 12:00 97.7 82 20 151/97 (115) 95 Intake and Output 12/29/18 12/30/18 19:00 07:00 Intake Total 810.000 ml 576.666 ml Output Total 100 ml 500 ml Balance 710.000 ml 76.666 ml Intake Oral 480 ml 100 ml IV Total 330.000 ml 476.666 ml Output Urine Total 100 ml 500 ml # Voids 2 Laboratory Tests Test 12/30/18 03:20 12/30/18 11:40 White Blood Count 5.2 K/UL (4.8-10.8) Red Blood Count 3.39 M/UL (4.70-6.10) L Hemoglobin 9.7 G/DL (14.2-18.0) L Hematocrit 29.4 % (42.0-52.0) L Mean Corpuscular Volume 87 FL (80-99) Mean Corpuscular Hemoglobin 28.7 PG (27.0-31.0) Mean Corpuscular Hemoglobin Concent 33.1 G/DL (32.0-36.0) Red Cell Distribution Width 16.8 % (11.6-14.8) H Platelet Count 34 K/UL (150-450) L Mean Platelet Volume 8.2 FL (6.5-10.1) Neutrophils (%) (Auto) % (45.0-75.0) Lymphocytes (%) (Auto) % (20.0-45.0) Monocytes (%) (Auto) % (1.0-10.0) Eosinophils (%) (Auto) % (0.0-3.0) Basophils (%) (Auto) % (0.0-2.0) Differential Total Cells Counted 100 Neutrophils % (Manual) 75 % (45-75) Lymphocytes % (Manual) 17 % (20-45) L Monocytes % (Manual) 8 % (1-10) Eosinophils % (Manual) 0 % (0-3) Basophils % (Manual) 0 % (0-2) Band Neutrophils 0 % (0-8) Nucleated Red Blood Cells 1 /100 WBC Platelet Estimate Decreased L Platelet Morphology Normal Anisocytosis 1+ Sodium Level 139 MMOL/L (136-145) Potassium Level 3.7 MMOL/L (3.5-5.1) Chloride Level 107 MMOL/L (98-107) Carbon Dioxide Level 26 MMOL/L (21-32) Anion Gap 6 mmol/L (5-15) Blood Urea Nitrogen 19 mg/dL (7-18) H Creatinine 0.9 MG/DL (0.55-1.30) Estimat Glomerular Filtration Rate mL/min (>60) Glucose Level 114 MG/DL (74-106) H Calcium Level 8.3 MG/DL (8.5-10.1) L Prothrombin Time Pending Prothromb Time International Ratio Pending Activated Partial Thromboplast Time Pending Height (Feet): 5 Height (Inches): 6.00 Weight (Pounds): 118 General Appearance: WD/WN, no apparent distress, alert Cardiovascular: normal rate Respiratory/Chest: normal breath sounds, no respiratory distress Abdominal Exam: normal bowel sounds, non tender, soft Extremities: non-tender Elke Jacobson [employer] Dec 30, 2018 12:00
[2018-12-30] MEDS: Colistin 150mg vial IVP SCH (12:45)
--- NOTE | 2018-12-30 13:06 | NUR ---
NURSE NOTES: Spoke with Dr Green regarding low magnesium of 1.5 today. He ordered Nephrology consult, Dr Block.
--- NOTE | 2018-12-30 13:12 | General Progress Note ---
Assessment/Plan Problem List: (1) Respiratory failure with hypoxia ICD Codes: J96.91 - Respiratory failure, unspecified with hypoxia SNOMED: 13534507309947015 Qualifiers: Qualified Codes: J96.01 - Acute respiratory failure with hypoxia (2) Atrial fibrillation with rapid ventricular response ICD Codes: I48.91 - Unspecified atrial fibrillation SNOMED: 610580383397230, 062911415 (3) Severe anemia ICD Codes: D64.9 - Anemia, unspecified SNOMED: 525816364 (4) ATN (acute tubular necrosis) ICD Codes: N17.0 - Acute kidney failure with tubular necrosis SNOMED: 33317390 (5) DM (diabetes mellitus) ICD Codes: E11.9 - Type 2 diabetes mellitus without complications SNOMED: 10027951 (6) Fever ICD Codes: R50.9 - Fever, unspecified SNOMED: 263098503 Status: unchanged Assessment/Plan vent transfuse prn cardio heme eval f/u cbc bmp am id eval aru eval Subjective Constitutional: Reports: weakness Respiratory: Reports: shortness of breath Allergies: Coded Allergies: No Known Allergies (Unverified , 12/15/18) All Systems: reviewed and negative except above Subjective o2 nc Objective Last 24 Hour Vital Signs Date Time Temp Pulse Resp B/P (MAP) Pulse Ox O2 Delivery O2 Flow Rate FiO2 12/30/18 12:00 Nasal Cannula 2.0 12/30/18 12:00 2.0 12/30/18 09:36 85 143/71 12/30/18 09:31 85 12/30/18 08:00 2.0 12/30/18 08:00 Nasal Cannula 2.0 12/30/18 08:00 98.4 85 20 143/71 (95) 98 12/30/18 07:41 63 12/30/18 04:00 Nasal Cannula 2.0 12/30/18 04:00 2.0 12/30/18 04:00 97.9 87 20 155/86 (109) 97 12/30/18 03:39 80 12/30/18 01:04 73 22 98 Nasal Cannula 4.0 36 12/30/18 00:57 88 26 86 Nasal Cannula 3.0 32 12/30/18 00:00 98.1 63 24 145/88 (107) 99 3/14/19 00:00 2.0 12/30/18 00:00 Nasal Cannula 2.0 12/29/18 23:24 66 12/29/18 22:00 97 Nasal Cannula 2.0 28 12/29/18 22:00 Nasal Cannula 2.0 28 12/29/18 20:19 79 132/76 12/29/18 20:00 2.0 12/29/18 20:00 98.4 83 24 137/84 (101) 97 12/29/18 20:00 Nasal Cannula 2.0 12/29/18 19:25 75 12/29/18 19:00 57 24 Nasal Cannula 2.0 28 12/29/18 16:00 Nasal Cannula 2.0 12/29/18 16:00 2.0 12/29/18 16:00 98.2 77 20 128/76 (93) 96 12/29/18 15:47 66 Intake and Output 12/29/18 12/30/18 19:00 07:00 Intake Total 810.000 ml 576.666 ml Output Total 100 ml 500 ml Balance 710.000 ml 76.666 ml Intake Oral 480 ml 100 ml IV Total 330.000 ml 476.666 ml Output Urine Total 100 ml 500 ml # Voids 2 Laboratory Tests 12/30/18 03:20: White Blood Count 5.2, Red Blood Count 3.39L, Hemoglobin 9.7L, Hematocrit 29.4L , Mean Corpuscular Volume 87, Mean Corpuscular Hemoglobin 28.7, Mean Corpuscular Hemoglobin Concent 33.1, Red Cell Distribution Width 16.8H, Platelet Count 34L, Mean Platelet Volume 8.2, Neutrophils (%) (Auto) , Lymphocytes (%) (Auto) , Monocytes (%) (Auto) , Eosinophils (%) (Auto) , Basophils (%) (Auto) , Differential Total Cells Counted 100, Neutrophils % ( Manual) 75, Lymphocytes % (Manual) 17L, Monocytes % (Manual) 8, Eosinophils % ( Manual) 0, Basophils % (Manual) 0, Band Neutrophils 0, Nucleated Red Blood Cells 1, Platelet Estimate DecreasedL, Platelet Morphology Normal, Anisocytosis 1+, Sodium Level 139, Potassium Level 3.7, Chloride Level 107, Carbon Dioxide Level 26, Anion Gap 6, Blood Urea Nitrogen 19H, Creatinine 0.9, Estimat Glomerular Filtration Rate , Glucose Level 114H, Calcium Level 8.3L 12/30/18 11:40: Prothrombin Time 10.9, Prothromb Time International Ratio 1.0, Activated Partial Thromboplast Time 31 Height (Feet): 5 Height (Inches): 6.00 Weight (Pounds): 118 General Appearance: lethargic EENT: normal ENT inspection Neck: normal alignment Cardiovascular: normal peripheral pulses, normal rate, regular rhythm Respiratory/Chest: chest wall non-tender, decreased breath sounds Abdomen: normal bowel sounds, non tender, soft Extremities: normal inspection Edema: no edema noted Arm (L), no edema noted Arm (R), no edema noted Leg (L), no edema noted Leg (R), no edema noted Pedal (L), no edema noted Pedal (R), no edema noted Generalized Neurologic: responsive, motor weakness Skin: normal pigmentation, warm/dry Landry Green DO Dec 30, 2018 13:12
--- NOTE | 2018-12-30 13:55 | Surgery Progress Note ---
Surgery Progress Note Subjective Additional Comments no acute events. comfortable. labs okay. Objective Last 24 Hour Vital Signs Date Time Temp Pulse Resp B/P (MAP) Pulse Ox O2 Delivery O2 Flow Rate FiO2 12/30/18 12:00 Nasal Cannula 2.0 12/30/18 12:00 2.0 12/30/18 09:36 85 143/71 12/30/18 09:31 85 12/30/18 08:00 2.0 12/30/18 08:00 Nasal Cannula 2.0 12/30/18 08:00 98.4 85 20 143/71 (95) 98 12/30/18 07:41 63 12/30/18 04:00 Nasal Cannula 2.0 12/30/18 04:00 2.0 12/30/18 04:00 97.9 87 20 155/86 (109) 97 12/30/18 03:39 80 12/30/18 01:04 73 22 98 Nasal Cannula 4.0 36 12/30/18 00:57 88 26 86 Nasal Cannula 3.0 32 12/30/18 00:00 98.1 63 24 145/88 (107) 99 12/30/18 00:00 2.0 12/30/18 00:00 Nasal Cannula 2.0 12/29/18 23:24 66 12/29/18 22:00 97 Nasal Cannula 2.0 28 12/29/18 22:00 Nasal Cannula 2.0 28 12/29/18 20:19 79 132/76 12/29/18 20:00 2.0 12/29/18 20:00 98.4 83 24 137/84 (101) 97 12/29/18 20:00 Nasal Cannula 2.0 12/29/18 19:25 75 12/29/18 19:00 57 24 Nasal Cannula 2.0 28 12/29/18 16:00 Nasal Cannula 2.0 12/29/18 16:00 2.0 12/29/18 16:00 98.2 77 20 128/76 (93) 96 12/29/18 15:47 66 I&O Intake and Output 12/29/18 12/30/18 19:00 07:00 Intake Total 810.000 ml 576.666 ml Output Total 100 ml 500 ml Balance 710.000 ml 76.666 ml Intake Oral 480 ml 100 ml IV Total 330.000 ml 476.666 ml Output Urine Total 100 ml 500 ml # Voids 2 Drains: none Cardiovascular: RSR Respiratory: clear Abdomen: soft, flat, non-tender, non-distended Extremities: no tenderness, no cyanosis Laboratory Tests Test 12/30/18 03:20 12/30/18 11:40 White Blood Count 5.2 K/UL (4.8-10.8) Red Blood Count 3.39 M/UL (4.70-6.10) L Hemoglobin 9.7 G/DL (14.2-18.0) L Hematocrit 29.4 % (42.0-52.0) L Mean Corpuscular Volume 87 FL (80-99) Mean Corpuscular Hemoglobin 28.7 PG (27.0-31.0) Mean Corpuscular Hemoglobin Concent 33.1 G/DL (32.0-36.0) Red Cell Distribution Width 16.8 % (11.6-14.8) H Platelet Count 34 K/UL (150-450) L Mean Platelet Volume 8.2 FL (6.5-10.1) Neutrophils (%) (Auto) % (45.0-75.0) Lymphocytes (%) (Auto) % (20.0-45.0) Monocytes (%) (Auto) % (1.0-10.0) Eosinophils (%) (Auto) % (0.0-3.0) Basophils (%) (Auto) % (0.0-2.0) Differential Total Cells Counted 100 Neutrophils % (Manual) 75 % (45-75) Lymphocytes % (Manual) 17 % (20-45) L Monocytes % (Manual) 8 % (1-10) Eosinophils % (Manual) 0 % (0-3) Basophils % (Manual) 0 % (0-2) Band Neutrophils 0 % (0-8) Nucleated Red Blood Cells 1 /100 WBC Platelet Estimate Decreased L Platelet Morphology Normal Anisocytosis 1+ Sodium Level 139 MMOL/L (136-145) Potassium Level 3.7 MMOL/L (3.5-5.1) Chloride Level 107 MMOL/L (98-107) Carbon Dioxide Level 26 MMOL/L (21-32) Anion Gap 6 mmol/L (5-15) Blood Urea Nitrogen 19 mg/dL (7-18) H Creatinine 0.9 MG/DL (0.55-1.30) Estimat Glomerular Filtration Rate mL/min (>60) Glucose Level 114 MG/DL (74-106) H Calcium Level 8.3 MG/DL (8.5-10.1) L Prothrombin Time 10.9 SEC (9.30-11.50) Prothromb Time International Ratio 1.0 (0.9-1.1) Activated Partial Thromboplast Time 31 SEC (23-33) Plan Problems: (1) Inguinal hernia Assessment & Plan: 78 year old male with massive inguinal hernia with bowel contents. CT with Massive indirect right inguinal hernia, containing the proximal colon and much if not most of the small bowel. No definite evidence of obstruction or strangulation Anasarca, with diffuse extensive bilateral pulmonary edema, bilateral pleural effusions, small amount of free intraperitoneal fluid, and extensive edema of the subcutaneous and mediastinal fat Colonic diverticulosis Diffuse skeletal osteosclerosis Distended bladder Prostatomegaly Large bilateral renal cysts. Calcification in the periventricular right kidney likely represent old involuted calcified cyst Nasogastric tube Incidental finding right lobe liver cyst On exam large inguinal hernia with bowel contents in scrotum not reducible but no signs of obstruction / strangulation. in reviewing CT likely loss of domain given patients body habitus compared to hernia size. patient awake but intubated on vent support. no tenderness but does have discomfort with manipulation. given above no acute surgical intervention planned as this is likely chronic and with loss of domain. unlikely to be incarcerated but will need to keep an eye on it as bowel can obstruction will follow with exams leukocytosis resolving CXR improved repeat AM labs Abx as per ID appreciate Cardiology input thank you Yordy Tucker Dec 30, 2018 13:55
--- NOTE | 2018-12-30 13:56 | NUR ---
NURSE NOTES: Spoke with blood bank regarding platelets. Platelets are ready at this time.
--- NOTE | 2018-12-30 15:21 | Pre-Procedure Note/Attestation ---
Pre-Procedure Note/Attestation Complete Prior to Procedure Planned Procedure: left Procedure Narrative: thoracentesis Indications for Procedure Pre-Operative Diagnosis: Bilat pleural effusion L>R Attestation I attest that I discussed the nature of the procedure; its benefits; risks and complications; and alternatives (and the risks and benefits of such alternatives ), prior to the procedure, with the patient (or the patient's legal players club representative). I attest that, if there was a reasonable possibility of needing a blood transfusion, the patient (or the patient's legal players club representative) was given the [facility] standardized written summary, pursuant to the [place] Blood Safety Act ([place] Health and Safety Code # 1645, as amended). I attest that I re-evaluated the patient just prior to the surgery and that there has been no change in the patient's H&P, except as documented below: Zak Govea MD Dec 30, 2018 15:21
[2018-12-30 16:00] VITALS: BP 92/50
--- NOTE | 2018-12-30 16:30 | Cardiac Electrophysiology PN ---
Assessment/Plan Assessment/Plan 1. Atrial fibrillation with rapid ventricular response. Precipitated by profound anemia with hemoglobin of 3.5. Echocardiogram showed EF 45% with moderate to severe pulmonary hypertension. Converted to SR on 12/23/18 but back in atrial fib Off anticoagulations for gastrointestinal bleed and hemoglobin 3.5. On Amiodarone 200 mg po daily and Dig 0.125 mg po daily and Lopressor 100 bid 2. Troponin leak due to atrial fib with RVR 3. Hypertension. On Metoprolol 4. Pancytopenia with Profound anemia, hemoglobin of 3.5 and platelet 35. S/P EGD by Dr Caruso 12/22/18 gastritis . S/P PRBC BM Biopsy tomorrow. FU Dr. Gooden 5. S/P Respiratory failure 6. Mild azotemia, BUN of 20, creatinine 1.0. 7. Pleural effusion, s/p thoracentesis today DW RN Subjective Subjective Had 1560cc Left thoracentesis by IR today after 1 unit of Platelet. Got both Metoprolol and Dig today. RN at bedside. Objective Last 24 Hour Vital Signs Date Time Temp Pulse Resp B/P (MAP) Pulse Ox O2 Delivery O2 Flow Rate FiO2 12/30/18 12:00 Nasal Cannula 2.0 12/30/18 12:00 2.0 12/30/18 09:36 85 143/71 12/30/18 09:31 85 12/30/18 08:00 2.0 12/30/18 08:00 Nasal Cannula 2.0 12/30/18 08:00 98.4 85 20 143/71 (95) 98 12/30/18 07:41 63 12/30/18 04:00 Nasal Cannula 2.0 12/30/18 04:00 2.0 12/30/18 04:00 97.9 87 20 155/86 (109) 97 12/30/18 03:39 80 12/30/18 01:04 73 22 98 Nasal Cannula 4.0 36 12/30/18 00:57 88 26 86 Nasal Cannula 3.0 32 12/30/18 00:00 98.1 63 24 145/88 (107) 99 12/30/18 00:00 2.0 12/30/18 00:00 Nasal Cannula 2.0 12/29/18 23:24 66 12/29/18 22:00 97 Nasal Cannula 2.0 28 12/29/18 22:00 Nasal Cannula 2.0 28 12/29/18 20:19 79 132/76 12/29/18 20:00 2.0 12/29/18 20:00 98.4 83 24 137/84 (101) 97 12/29/18 20:00 Nasal Cannula 2.0 12/29/18 19:25 75 12/29/18 19:00 57 24 Nasal Cannula 2.0 28 Intake and Output 12/29/18 12/30/18 18:59 06:59 Intake Total 810.000 ml 576.666 ml Output Total 100 ml 500 ml Balance 710.000 ml 76.666 ml Intake Oral 480 ml 100 ml IV Total 330.000 ml 476.666 ml Output Urine Total 100 ml 500 ml # Voids 2 Laboratory Tests Test 12/30/18 03:20 12/30/18 11:40 12/30/18 15:25 White Blood Count 5.2 K/UL (4.8-10.8) Red Blood Count 3.39 M/UL (4.70-6.10) L Hemoglobin 9.7 G/DL (14.2-18.0) L Hematocrit 29.4 % (42.0-52.0) L Mean Corpuscular Volume 87 FL (80-99) Mean Corpuscular Hemoglobin 28.7 PG (27.0-31.0) Mean Corpuscular Hemoglobin Concent 33.1 G/DL (32.0-36.0) Red Cell Distribution Width 16.8 % (11.6-14.8) H Platelet Count 34 K/UL (150-450) L Mean Platelet Volume 8.2 FL (6.5-10.1) Neutrophils (%) (Auto) % (45.0-75.0) Lymphocytes (%) (Auto) % (20.0-45.0) Monocytes (%) (Auto) % (1.0-10.0) Eosinophils (%) (Auto) % (0.0-3.0) Basophils (%) (Auto) % (0.0-2.0) Differential Total Cells Counted 100 Neutrophils % (Manual) 75 % (45-75) Lymphocytes % (Manual) 17 % (20-45) L Monocytes % (Manual) 8 % (1-10) Eosinophils % (Manual) 0 % (0-3) Basophils % (Manual) 0 % (0-2) Band Neutrophils 0 % (0-8) Nucleated Red Blood Cells 1 /100 WBC Platelet Estimate Decreased L Platelet Morphology Normal Anisocytosis 1+ Sodium Level 139 MMOL/L (136-145) Potassium Level 3.7 MMOL/L (3.5-5.1) Chloride Level 107 MMOL/L (98-107) Carbon Dioxide Level 26 MMOL/L (21-32) Anion Gap 6 mmol/L (5-15) Blood Urea Nitrogen 19 mg/dL (7-18) H Creatinine 0.9 MG/DL (0.55-1.30) Estimat Glomerular Filtration Rate mL/min (>60) Glucose Level 114 MG/DL (74-106) H Calcium Level 8.3 MG/DL (8.5-10.1) L Prothrombin Time 10.9 SEC (9.30-11.50) Prothromb Time International Ratio 1.0 (0.9-1.1) Activated Partial Thromboplast Time 31 SEC (23-33) Body Fluid Glucose Pending Body Fluid Total Protein Pending Microbiology Date/Time Source Procedure Growth Status 12/29/18 15:45 Blood Blood Culture - Preliminary Resulted 12/28/18 11:45 Blood Blood Culture - Preliminary Gram Negative José Resulted 12/28/18 11:30 Blood Blood Culture - Preliminary Gram Negative José Resulted 12/28/18 21:30 Sputum Gram Stain - Final Resulted 12/28/18 21:30 Sputum Culture - Preliminary Gram Negative Bacillus 1 Resulted Objective HEAD AND NECK: No JVD LUNGS: Coarse rhonchi. CARDIOVASCULAR:Regular S1 and S2 with no gallop or murmur. ABDOMEN: Soft. Swollen scrotum EXTREMITIES: No edema. Shantanu Mcmillan MD Dec 30, 2018 16:30
--- NOTE | 2018-12-30 16:36 | Diagnostic Imaging Report ---
Indications: Pleural effusion Technique: Ultrasound used to localize optimal puncture site. Sterile prepping and draping left chest. Local anesthesia with 1% lidocaine. Under real-time ultrasound guidance, puncture pleural space using thoracentesis needle. Stylet removed. Catheter placed to vacuum bottle suction. Total 1560 milliliters of fluid aspirated. Patient tolerated procedure well, without immediate complication. Findings: Followup sonography demonstrates complete resolution of pleural fluid. Impression: Successful ultrasound-guided thoracentesis, yielding 1560 milliliters of fluid
--- NOTE | 2018-12-30 16:38 | Diagnostic Imaging Report ---
Indication: Status post thoracentesis Technique: One view of the chest Comparison: 12/27/2018 Findings: Interim resolution of previously demonstrated left pleural effusion. No pneumothorax is demonstrated. Right pleural effusion and generalized bilateral interstitial and airspace edema versus infiltrates persist Impression: Resolved left pleural effusion, status post thoracentesis. No radiographically evident complication
[2018-12-30] MEDS: DAPTOmycin 300 MG in NS 55 ML IV SCH (17:18)
--- NOTE | 2018-12-30 19:30 | NUR ---
HAND-OFF: Report given to SARAI Sanchez. Patient VS stable at this time with no sign of acute distress. patient had platelet 1 unit and thoracentesis of left lung pleural effusion with 1560mL out. Patient has order for Bone biopsy tomorrow at 11am. Consent is signed. Endorsed to follow up.
[2018-12-30] MEDS ORDERED: Albuterol/Ipratropium 3ml neb HHN PRN (19:45)
--- NOTE | 2018-12-30 19:45 | Consultation ---
DATE OF CONSULTATION: 12/30/2018 CONSULTING PHYSICIAN: Sacha Jacome M.D. REFERRING PHYSICIAN: Landry Green D.O. REASON FOR CONSULTATION: 1. Hypokalemia. 2. Hypophosphatemia. 3. Electrolyte abnormalities. HISTORY OF PRESENT ILLNESS: The patient is a 78-year-old gentleman who has been admitted approximately 2 weeks ago for severe anemia, weakness, and shortness of breath. The patient lives at home and presented worsening shortness of breath over the prior week and finally after getting very tired and weak, came to the emergency room, had a hemoglobin of 3, underwent emergent blood transfusion, had also developed atrial fibrillation with RVR, was transferred to the intensive care unit. During his current hospitalization, the patient has had recurrent sepsis, multifactorial secondary to bacteremia from pneumonia and UTI along with atrial fibrillation and RVR, which all led to thrombocytopenia from sepsis and contributing medications. He is status post extubation, had been initially intubated on 12/17/2018 and extubated on 12/23/2018. During the interval, noted to have electrolyte abnormalities consisting of low potassium and low phosphorus. ALLERGIES: No known drug allergies. PAST MEDICAL HISTORY: 1. Anemia. 2. Deconditioning. PAST SURGICAL HISTORY: Lung surgery. SOCIAL HISTORY: Positive for occasional alcohol and tobacco. No illicit drug use. FAMILY HISTORY: Positive for hypertension. REVIEW OF SYSTEMS: NEUROLOGIC: The patient denies headache, change in vision, syncope, or presyncopal episodes. CARDIOVASCULAR: No current chest pain, palpitations, or angina. PULMONARY: Mild shortness of breath. Nonproductive cough. GASTROINTESTINAL/GENITOURINARY: No change in urinary bowel habits. No nausea, vomiting, or diarrhea. ENDOCRINOLOGY: No night sweats, fevers, or chills. LABORATORY DATA: Labs dated 12/29/2018, potassium 3.8, phosphorus 1.2, magnesium 2.0, creatinine 1.0. PHYSICAL EXAMINATION: VITAL SIGNS: Blood pressure 143/71, pulse 85, oxygen saturation 98.4 on 2 L nasal cannula. GENERAL: The patient awake, alert, not otherwise in distress. HEENT: Extraocular muscles intact. No lymphadenopathy. Oropharyngeal mucosa clear and dry. CARDIOVASCULAR: S1, S2. No rubs or gallops. PULMONARY: Mild upper rhonchi with fair air movement all mcdaniel. ABDOMEN: Nondistended, nontender. EXTREMITIES: No edema. ASSESSMENT AND PLAN: 1. Electrolyte abnormalities consisting of low magnesium and potassium, multifactorial in nature post septic shock. At this time, the patient encouraged to maintain adequate oral nutrition and to avoid refeeding syndrome. We will continue to replete electrolytes as deemed necessary. We will check magnesium, phosphorus, and potassium in the morning. Currently, creatinine levels within normal limits. 2. Anemia. Defer management to Hematology/Oncology. Hemoglobin currently stable at 9.7. 3. Severe sepsis. ID is evaluating the patient and adjusting antibiotics as deemed necessary. 4. Atrial fibrillation with RVR. The patient on amiodarone. We will continue to follow renal function carefully as the patient is on colistin along with previous vancomycin. Sacha Jacome MD DR: DARRIUS JOB#: [id number] CC:
[2018-12-30 20:00] VITALS: BP 136/91
--- NOTE | 2018-12-30 20:21 | NUR ---
NURSE NOTES: Received bedside report from SARAI Arriaga Patient stable,A&O x4,tolerated N/C with 2L/min well,no respiratory distress,no pain at this moment,A-Fib on library monitor,BS active in all quadrants,IV asymptomatic,intact on L wrist 20G,bed secured,call light within a reach,will continue to monitor.
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
[2018-12-31] VITALS: BP 139/80
[2018-12-31] MEDS: Colistin 150mg vial IVP SCH ×2 (01:06→15:32)
[2018-12-31 04:00] VITALS: BP 145/78
[2018-12-31 05:46] LABS: BASOPHILS % (AUTO) 1.1 % (0.0-2.0); EOSINOPHILS % (AUTO) 0.8 % (0.0-3.0); HEMATOCRIT 30.4 % (42.0-52.0); HEMOGLOBIN 9.9 G/DL (14.2-18.0); LYMPHOCYTES % (AUTO) 21.9 % (20.0-45.0); MEAN CORPUSCULAR VOLUME 87 FL (80-99); MONOCYTES % (AUTO) 10.1 % (1.0-10.0); NEUTROPHILS % (AUTO) 66.2 % (45.0-75.0); PLATELET COUNT 115 K/UL (150-450); RED BLOOD COUNT 3.49 M/UL (4.70-6.10); RED CELL DISTRIBUTION WIDTH 16.9 % (11.6-14.8); WHITE BLOOD COUNT 4.7 K/UL (4.8-10.8)
[2018-12-31 06:27] LABS: PHOSPHORUS 1.9 MG/DL (2.5-4.9)
[2018-12-31 06:30] LABS: CREATINE KINASE 60 U/L (26-308)
--- NOTE | 2018-12-31 07:23 | NUR ---
HAND-OFF: Report given to SARAI Merino.Patient stable.
[2018-12-31 08:00] VITALS: BP 139/76
--- NOTE | 2018-12-31 08:02 | NUR ---
NURSE NOTES: received patient report from manuel chaves from [facility]. patient came in via hospital bed. not in acute distress. bed is low and locked for safety. sacral redness per report. wcp initiated.. on KATHRYN. theresa borrero today. consent signed. will follow plan of care.
[2018-12-31] MEDS ORDERED: Morphine Sulfate 2mg/ml Inj(IV/IM USE ONLY) IVP ONE (08:15)
[2018-12-31] MEDS ORDERED: LORazepam Inj 2mg/ml 1ml IV ONE (08:15)
[2018-12-31] MEDS ORDERED: Lidocaine 2% MPF 5ml Vial INJ ONE ×2 (08:15)
[2018-12-31 08:17] LABS: ALANINE AMINOTRANSFERASE 28 U/L (12-78); ALBUMIN 1.8 G/DL (3.4-5.0); ALBUMIN/GLOBULIN RATIO 0.4 (1.0-2.7); ALKALINE PHOSPHATASE 427 U/L (46-116); ANION GAP 8 mmol/L (5-15); ASPARTATE AMINO TRANSFERASE 20 U/L (15-37); BILIRUBIN,TOTAL 1.1 MG/DL (0.2-1.0); BLOOD UREA NITROGEN 19 mg/dL (7-18); CALCIUM 7.9 MG/DL (8.5-10.1); CARBON DIOXIDE 28 MMOL/L (21-32); CHLORIDE 107 MMOL/L (98-107); CREATININE 0.8 MG/DL (0.55-1.30); POTASSIUM 3.7 MMOL/L (3.5-5.1); SODIUM 143 MMOL/L (136-145)
--- NOTE | 2018-12-31 08:27 | Nephrology Progress Note ---
Assessment/Plan Assessment/Plan A/P 1) E- ABN- hypophosphatemia - will replace with K+phos today - avoid reefeding syndrome - replace Mg as well 2) Afib RVR- per cardiology 3) Sepsis- on Abx 4) Anemia- stable Subjective Date patient seen: Dec 31, 2018 Time patient seen: 08:24 ROS Limited/Unobtainable: No Allergies: Coded Allergies: No Known Allergies (Unverified , 12/15/18) Subjective Patient eating and feeling better Objective Last 24 Hour Vital Signs Date Time Temp Pulse Resp B/P (MAP) Pulse Ox O2 Delivery O2 Flow Rate FiO2 12/31/18 04:08 102 12/31/18 04:00 Nasal Cannula 2.0 12/31/18 04:00 2.0 12/31/18 04:00 98.1 78 24 145/78 (100) 92 12/31/18 00:00 98.1 70 18 139/80 (99) 92 12/31/18 00:00 2.0 12/31/18 00:00 Nasal Cannula 2.0 12/30/18 23:40 68 12/30/18 21:17 82 136/91 12/30/18 20:00 Nasal Cannula 2.0 12/30/18 20:00 2.0 12/30/18 20:00 98.3 82 18 136/91 (106) 90 12/30/18 19:11 84 12/30/18 19:00 98 Nasal Cannula 2.0 28 12/30/18 19:00 Nasal Cannula 2.0 28 12/30/18 16:00 Nasal Cannula 2.0 12/30/18 16:00 2.0 12/30/18 16:00 99.1 75 20 92/50 (64) 100 12/30/18 16:00 76 12/30/18 12:00 98.1 66 20 131/96 (108) 98 12/30/18 12:00 Nasal Cannula 2.0 12/30/18 12:00 73 12/30/18 12:00 2.0 12/30/18 09:36 85 143/71 12/30/18 09:31 85 Intake and Output 12/30/18 12/31/18 19:00 07:00 Intake Total 535 ml 120 ml Output Total 200 ml 350 ml Balance 335 ml -230 ml Intake Oral 480 ml 120 ml IV Total 55 ml Output Urine Total 200 ml 350 ml # Voids 2 Laboratory Tests 12/30/18 11:40: Prothrombin Time 10.9, Prothromb Time International Ratio 1.0, Activated Partial Thromboplast Time 31 12/30/18 15:25: Body Fluid Source Thoracentesis, Body Fluid Volume 24, Body Fluid Appearance Slightly hazy, Body Fluid RBC 495, Body Fluid Total Nucleated Cells 160, Body Fluid Polynuclear WBCs (%) 45, Body Fluid Mononuclear WBCs (%) 51, Body Fluid Mesothelial Cells (%) 4, Body Fluid Glucose [Pending], Body Fluid Total Protein [Pending], Body Fluid Albumin [Pending] 12/31/18 03:20: White Blood Count 4.7L, Red Blood Count 3.49L, Hemoglobin 9.9L, Hematocrit 30.4L , Mean Corpuscular Volume 87, Mean Corpuscular Hemoglobin 28.5, Mean Corpuscular Hemoglobin Concent 32.6, Red Cell Distribution Width 16.9H, Platelet Count 115#L, Mean Platelet Volume 7.3, Neutrophils (%) (Auto) 66.2, Lymphocytes (%) (Auto) 21.9, Monocytes (%) (Auto) 10.1H, Eosinophils (%) (Auto) 0.8, Basophils (%) (Auto) 1.1, Sodium Level 143, Potassium Level 3.7, Chloride Level 107, Carbon Dioxide Level 28, Anion Gap 8, Blood Urea Nitrogen 19H, Creatinine 0.8, Estimat Glomerular Filtration Rate , Glucose Level 108H, Calcium Level 7.9L, Phosphorus Level 1.9L, Magnesium Level 1.8, Total Bilirubin 1.1H, Direct Bilirubin [Pending], Aspartate Amino Transf (AST/SGOT) 20, Alanine Aminotransferase (ALT/SGPT) 28, Alkaline Phosphatase 427H, Total Creatine Kinase 60, Pro-B-Type Natriuretic Peptide 47459I, Total Protein 6.1L, Albumin 1.8L, Globulin 4.3, Albumin/Globulin Ratio 0.4L, Digoxin Level 1.2 Height (Feet): 5 Height (Inches): 6.00 Weight (Pounds): 120 General Appearance: no apparent distress, alert EENT: normal ENT inspection Neck: normal alignment, supple Cardiovascular: normal rate, regular rhythm Respiratory/Chest: lungs clear, normal breath sounds Abdomen: non tender, soft Edema: no edema noted Arm (L), no edema noted Arm (R), no edema noted Leg (L), no edema noted Leg (R), no edema noted Pedal (L), no edema noted Pedal (R), no edema noted Generalized Sacha Jacome MD Dec 31, 2018 08:27
[2018-12-31 08:30] LABS: BILIRUBIN,DIRECT 0.2 MG/DL (0.0-0.3)
[2018-12-31] MEDS: Dronabinol 2.5mg Cap ORAL SCH ×3 (09:00→18:04)
[2018-12-31] MEDS: Amiodarone 200mg tab ORAL SCH (09:11)
[2018-12-31] MEDS: Pantoprazole Inj IV SCH (09:11)
[2018-12-31] MEDS: Digoxin 0.125mg tab ORAL SCH (09:12)
--- NOTE | 2018-12-31 09:52 | General Progress Note ---
Assessment/Plan Problem List: (1) DM (diabetes mellitus) ICD Codes: E11.9 - Type 2 diabetes mellitus without complications SNOMED: 01139127 (2) Elevated LFTs ICD Codes: R94.5 - Abnormal results of liver function studies SNOMED: 274876281, 249211025 (3) Dysphagia ICD Codes: R13.10 - Dysphagia, unspecified SNOMED: 31711527, 019553159 (4) Severe anemia ICD Codes: D64.9 - Anemia, unspecified SNOMED: 537528001 (5) Atrial fibrillation with rapid ventricular response ICD Codes: I48.91 - Unspecified atrial fibrillation SNOMED: 983455230232888, 802899521 (6) Respiratory failure with hypoxia ICD Codes: J96.91 - Respiratory failure, unspecified with hypoxia SNOMED: 57374930396799238 Qualifiers: Qualified Codes: J96.01 - Acute respiratory failure with hypoxia (7) Irreducible right inguinal hernia ICD Codes: K40.30 - Unilateral inguinal hernia, with obstruction, without gangrene, not specified as recurrent SNOMED: 811452308 (8) Diverticulosis ICD Codes: K57.90 - Diverticulosis of intestine, part unspecified, without perforation or abscess without bleeding SNOMED: 449807557 (9) Gastritis ICD Codes: K29.70 - Gastritis, unspecified, without bleeding SNOMED: 9322643 (10) Pancytopenia ICD Codes: D61.818 - Other pancytopenia SNOMED: 814511820 (11) Prostate cancer ICD Codes: C61 - Malignant neoplasm of prostate SNOMED: 214612759 (12) Pleural effusion ICD Codes: J90 - Pleural effusion, not elsewhere classified SNOMED: 00439636 (13) Thrombocytopenia ICD Codes: D69.6 - Thrombocytopenia, unspecified SNOMED: 060449516 Assessment/Plan s/p EGD SUMMARY OF FINDINGS: Severe gastritis versus portal hypertensive gastropathy versus ischemia, status post biopsy. Diet per ST, on Marinol Continue on PPI. Carafate. Follow up biopsy results and treat accordingly. prn transfusions Electrolyte correction follow labs pending bone marrow biopsy for today add bowel regimen check ammoina level Subjective ROS Limited/Unobtainable: No Allergies: Coded Allergies: No Known Allergies (Unverified , 12/15/18) Objective Last 24 Hour Vital Signs Date Time Temp Pulse Resp B/P (MAP) Pulse Ox O2 Delivery O2 Flow Rate FiO2 12/31/18 09:12 87 12/31/18 09:11 64 139/76 12/31/18 08:38 98 Nasal Cannula 2.0 28 12/31/18 08:38 Nasal Cannula 2.0 28 12/31/18 08:38 64 22 Nasal Cannula 2.0 28 12/31/18 08:00 97.4 87 22 139/76 (97) 92 12/31/18 04:08 102 12/31/18 04:00 Nasal Cannula 2.0 12/31/18 04:00 2.0 12/31/18 04:00 98.1 78 24 145/78 (100) 92 12/31/18 00:00 98.1 70 18 139/80 (99) 92 12/31/18 00:00 2.0 12/31/18 00:00 Nasal Cannula 2.0 12/30/18 23:40 68 12/30/18 21:17 82 136/91 12/30/18 20:00 Nasal Cannula 2.0 12/30/18 20:00 2.0 12/30/18 20:00 98.3 82 18 136/91 (106) 90 12/30/18 19:11 84 12/30/18 19:00 98 Nasal Cannula 2.0 28 12/30/18 19:00 Nasal Cannula 2.0 28 12/30/18 16:00 Nasal Cannula 2.0 12/30/18 16:00 2.0 12/30/18 16:00 99.1 75 20 92/50 (64) 100 12/30/18 16:00 76 12/30/18 12:00 98.1 66 20 131/96 (108) 98 12/30/18 12:00 Nasal Cannula 2.0 12/30/18 12:00 73 12/30/18 12:00 2.0 Intake and Output 12/30/18 12/31/18 19:00 07:00 Intake Total 535 ml 120 ml Output Total 200 ml 350 ml Balance 335 ml -230 ml Intake Oral 480 ml 120 ml IV Total 55 ml Output Urine Total 200 ml 350 ml # Voids 2 Laboratory Tests 12/30/18 11:40: Prothrombin Time 10.9, Prothromb Time International Ratio 1.0, Activated Partial Thromboplast Time 31 12/30/18 15:25: Body Fluid Source Thoracentesis, Body Fluid Volume 24, Body Fluid Appearance Slightly hazy, Body Fluid RBC 495, Body Fluid Total Nucleated Cells 160, Body Fluid Polynuclear WBCs (%) 45, Body Fluid Mononuclear WBCs (%) 51, Body Fluid Mesothelial Cells (%) 4, Body Fluid Glucose [Pending], Body Fluid Total Protein [Pending], Body Fluid Albumin [Pending] 12/31/18 03:20: White Blood Count 4.7L, Red Blood Count 3.49L, Hemoglobin 9.9L, Hematocrit 30.4L , Mean Corpuscular Volume 87, Mean Corpuscular Hemoglobin 28.5, Mean Corpuscular Hemoglobin Concent 32.6, Red Cell Distribution Width 16.9H, Platelet Count 115#L, Mean Platelet Volume 7.3, Neutrophils (%) (Auto) 66.2, Lymphocytes (%) (Auto) 21.9, Monocytes (%) (Auto) 10.1H, Eosinophils (%) (Auto) 0.8, Basophils (%) (Auto) 1.1, Sodium Level 143, Potassium Level 3.7, Chloride Level 107, Carbon Dioxide Level 28, Anion Gap 8, Blood Urea Nitrogen 19H, Creatinine 0.8, Estimat Glomerular Filtration Rate , Glucose Level 108H, Calcium Level 7.9L, Phosphorus Level 1.9L, Magnesium Level 1.8, Total Bilirubin 1.1H, Direct Bilirubin 0.2, Aspartate Amino Transf (AST/SGOT) 20, Alanine Aminotransferase (ALT/SGPT) 28, Alkaline Phosphatase 427H, Total Creatine Kinase 60, Pro-B-Type Natriuretic Peptide 51431N, Total Protein 6.1L, Albumin 1.8L, Globulin 4.3, Albumin/Globulin Ratio 0.4L, Digoxin Level 1.2 Height (Feet): 5 Height (Inches): 6.00 Weight (Pounds): 120 General Appearance: no apparent distress EENT: normal ENT inspection Neck: supple Cardiovascular: normal rate Respiratory/Chest: decreased breath sounds Abdomen: non tender, soft, other - large inguinal hernia Extremities: non-tender Mike Caruso MD Dec 31, 2018 09:52
[2018-12-31] MEDS ORDERED: Potassium Phosphate 20 MM in NS 275 ML IV ONE (10:00)
--- NOTE | 2018-12-31 11:06 | Surgery Progress Note ---
Surgery Progress Note Subjective Additional Comments No acute events overnight. Patient had thoracentesis yesterday with removal of near 1600 cc of fluid. States he feels comfortable today. Labs noted. Bone marrow biopsy pending for today. Objective Last 24 Hour Vital Signs Date Time Temp Pulse Resp B/P (MAP) Pulse Ox O2 Delivery O2 Flow Rate FiO2 12/31/18 09:12 87 12/31/18 09:11 64 139/76 12/31/18 08:38 98 Nasal Cannula 2.0 28 12/31/18 08:38 Nasal Cannula 2.0 28 12/31/18 08:38 64 22 Nasal Cannula 2.0 28 12/31/18 08:00 97.4 87 22 139/76 (97) 92 12/31/18 08:00 Nasal Cannula 2.0 12/31/18 08:00 91 12/31/18 04:08 102 12/31/18 04:00 Nasal Cannula 2.0 12/31/18 04:00 2.0 12/31/18 04:00 98.1 78 24 145/78 (100) 92 12/31/18 00:00 98.1 70 18 139/80 (99) 92 12/31/18 00:00 2.0 12/31/18 00:00 Nasal Cannula 2.0 12/30/18 23:40 68 12/30/18 21:17 82 136/91 12/30/18 20:00 Nasal Cannula 2.0 12/30/18 20:00 2.0 12/30/18 20:00 98.3 82 18 136/91 (106) 90 12/30/18 19:11 84 12/30/18 19:00 98 Nasal Cannula 2.0 28 12/30/18 19:00 Nasal Cannula 2.0 28 12/30/18 16:00 Nasal Cannula 2.0 12/30/18 16:00 2.0 12/30/18 16:00 99.1 75 20 92/50 (64) 100 12/30/18 16:00 76 12/30/18 12:00 98.1 66 20 131/96 (108) 98 12/30/18 12:00 Nasal Cannula 2.0 12/30/18 12:00 73 12/30/18 12:00 2.0 I&O Intake and Output 12/30/18 12/31/18 19:00 07:00 Intake Total 535 ml 120 ml Output Total 200 ml 350 ml Balance 335 ml -230 ml Intake Oral 480 ml 120 ml IV Total 55 ml Output Urine Total 200 ml 350 ml # Voids 2 Cardiovascular: RSR Respiratory: clear Abdomen: soft, flat, non-tender, non-distended Extremities: no cyanosis Laboratory Tests Test 12/30/18 11:40 12/30/18 15:25 12/31/18 03:20 Prothrombin Time 10.9 SEC (9.30-11.50) Prothromb Time International Ratio 1.0 (0.9-1.1) Activated Partial Thromboplast Time 31 SEC (23-33) Body Fluid Source Thoracentesis Body Fluid Volume 24 mL Body Fluid Appearance Slightly hazy (Clear) Body Fluid RBC 495 /CUMM Body Fluid Total Nucleated Cells 160 /CUMM Body Fluid Polynuclear WBCs (%) 45 % Body Fluid Mononuclear WBCs (%) 51 % Body Fluid Mesothelial Cells (%) 4 % Body Fluid Glucose Pending Body Fluid Total Protein Pending Body Fluid Albumin Pending White Blood Count 4.7 K/UL (4.8-10.8) L Red Blood Count 3.49 M/UL (4.70-6.10) L Hemoglobin 9.9 G/DL (14.2-18.0) L Hematocrit 30.4 % (42.0-52.0) L Mean Corpuscular Volume 87 FL (80-99) Mean Corpuscular Hemoglobin 28.5 PG (27.0-31.0) Mean Corpuscular Hemoglobin Concent 32.6 G/DL (32.0-36.0) Red Cell Distribution Width 16.9 % (11.6-14.8) H Platelet Count 115 K/UL (150-450) #L Mean Platelet Volume 7.3 FL (6.5-10.1) Neutrophils (%) (Auto) 66.2 % (45.0-75.0) Lymphocytes (%) (Auto) 21.9 % (20.0-45.0) Monocytes (%) (Auto) 10.1 % (1.0-10.0) H Eosinophils (%) (Auto) 0.8 % (0.0-3.0) Basophils (%) (Auto) 1.1 % (0.0-2.0) Sodium Level 143 MMOL/L (136-145) Potassium Level 3.7 MMOL/L (3.5-5.1) Chloride Level 107 MMOL/L (98-107) Carbon Dioxide Level 28 MMOL/L (21-32) Anion Gap 8 mmol/L (5-15) Blood Urea Nitrogen 19 mg/dL (7-18) H Creatinine 0.8 MG/DL (0.55-1.30) Estimat Glomerular Filtration Rate mL/min (>60) Glucose Level 108 MG/DL (74-106) H Calcium Level 7.9 MG/DL (8.5-10.1) L Phosphorus Level 1.9 MG/DL (2.5-4.9) L Magnesium Level 1.8 MG/DL (1.8-2.4) Total Bilirubin 1.1 MG/DL (0.2-1.0) H Direct Bilirubin 0.2 MG/DL (0.0-0.3) Aspartate Amino Transf (AST/SGOT) 20 U/L (15-37) Alanine Aminotransferase (ALT/SGPT) 28 U/L (12-78) Alkaline Phosphatase 427 U/L (46-116) H Total Creatine Kinase 60 U/L (26-308) Pro-B-Type Natriuretic Peptide 41604 pg/mL (0-125) H Total Protein 6.1 G/DL (6.4-8.2) L Albumin 1.8 G/DL (3.4-5.0) L Globulin 4.3 g/dL Albumin/Globulin Ratio 0.4 (1.0-2.7) L Digoxin Level 1.2 NG/ML (0.5-2.0) Plan Problems: (1) Inguinal hernia Assessment & Plan: 78 year old male with massive inguinal hernia with bowel contents. CT with Massive indirect right inguinal hernia, containing the proximal colon and much if not most of the small bowel. No definite evidence of obstruction or strangulation Anasarca, with diffuse extensive bilateral pulmonary edema, bilateral pleural effusions, small amount of free intraperitoneal fluid, and extensive edema of the subcutaneous and mediastinal fat Colonic diverticulosis Diffuse skeletal osteosclerosis Distended bladder Prostatomegaly Large bilateral renal cysts. Calcification in the periventricular right kidney likely represent old involuted calcified cyst Nasogastric tube Incidental finding right lobe liver cyst On exam large inguinal hernia with bowel contents in scrotum not reducible but no signs of obstruction / strangulation. in reviewing CT likely loss of domain given patients body habitus compared to hernia size. patient awake but intubated on vent support. no tenderness but does have discomfort with manipulation. given above no acute surgical intervention planned as this is likely chronic and with loss of domain. unlikely to be incarcerated but will need to keep an eye on it as bowel can obstruction will follow with exams leukocytosis resolved CXR noted after thoracentesis - resolved pleural effusion Abx as per ID appreciate Cardiology input pending bone marrow biopsy today EGD results noted thank you (2) Pleural effusion Assessment & Plan: s/p thoracentesis with removal of near 1600cc fluids CXR noted after thoracentesis - resolved pleural effusion AM CXR Yordy Tucker Dec 31, 2018 11:06
--- NOTE | 2018-12-31 11:10 | NUR ---
RD ASSESSMENT & RECOMMENDATIONS SEE CARE ACTIVITY FOR COMPLETE ASSESSMENT DAILY ESTIMATED NEEDS: Needs based on underweight 52kg 30-35 kcals/kg 3745-3159 total kcals 1-1.5 g protein/kg 52-78 g total protein 25-30 mL/kg 2005-9437 total fluid mLs NUTRITION DIAGNOSIS: 1) Swallowing difficulty r/t respiratory status as evidenced by pt now now extubated, seen by WRAPAROUND FACILITATOR w/ rec for pureed moist, NTL, poor PO at this time. 2) Increased kcal and protein needs r/t underweight status, wound healing as evidenced by pt is 74% of [place] Body Weight, underweight per guidelines, presents w/ generalized moderate to severe wasting, pt now w/ new stage 2 wound @ sacrum. CURRENT DIET:CCHO MED, Pureed Moist, NTL + Ensure Enlive TID w/ meals PO DIET RECOMMENDATIONS: Liberalized REGULAR/ texture per WRAPAROUND FACILITATOR + Ensure Enlive TID w/ meals ADDITIONAL RECOMMENDATIONS: 1) Obtain calibrated bed scale wts, weekly wts -> Pt is underweight 2) Continue w/ Ensure Enlive TID w/ meals (350kcal/20g prot per bottle) 3) Wound healing: add MVI x 1, Vit C 500mg QD : Misael 1pkt BID 4) WRAPAROUND FACILITATOR eval for possible texture upgrade- per pt dislikes pureed txture 5) Monitor lytes daily, replete as needed (low phos) 6) Monitor % intake of meals and HPN in EMR - not recorded since 12/27
[2018-12-31] MEDS ORDERED: Morphine Sulfate 2mg/ml Inj(IV/IM USE ONLY) IVP SCH (11:15)
[2018-12-31] MEDS ORDERED: Lidocaine 2% MPF 5ml Vial INJ SCH (11:15)
[2018-12-31] MEDS ORDERED: LORazepam Inj 2mg/ml 1ml IV SCH (11:30)
[2018-12-31 12:00] VITALS: BP 122/87
--- NOTE | 2018-12-31 12:13 | PATHOLOGY BONE BARROW ---
Bone Marrow Aspirate & Biopsy . PROCEDURE: Bone Marrow Aspirate and Biopsy INDICATION: Prostate cancer, anemia PROCEDURE FITNESS/WELLNESS DIRECTOR: Lise Meza M.D. CONSENT: Consent was previously obtained from the patient. The risks and benefits were re-explained. The patient agreed to undergo the procedure. A TIMEOUT WAS EXECUTED: yes PROCEDURE SUMMARY: The patient was laid in the prone position. The left posterior iliac crest was prepped and draped in a sterile fashion. The crest of the posterior iliac was located, and the skin as well as surface of the bone was anesthetized with 2% lidocaine. An aspirating needle was introduced. An attempt to obtain aspirate resulted in a dry tap; no aspirate was obtained. The coring needle was advanced into the bone cavity. A bone marrow biopsy was obtained without any complications. ESTIMATED BLOOD LOSS: Negligible REPORTS TO FOLLOW Leslie Ruff MD Dec 31, 2018 12:13
--- NOTE | 2018-12-31 12:38 | Pulmonology Progress Note ---
Assessment/Plan Problems: (1) Pleural effusion (2) Prostate cancer (3) Acute respiratory failure (4) Respiratory failure with hypoxia (5) Atrial fibrillation with rapid ventricular response (6) Thrombocytopenia (7) DM (diabetes mellitus) Assessment/Plan thoracentesis done, 1.5 liters removed. d/w pathologist, there are some abnormal cells. PLT transfusion yesterday d/w radiologist, Prostate looks normal stopped Meropenem, amiodarone can cause low PLT, but it was started on 12/28 but might still contribute to low PLT might need bone marrow biopsy sliding scale diabetic diet med/surg Subjective ROS Limited/Unobtainable: No Constitutional: Reports: no symptoms HEENT: Repors: no symptoms Respiratory: Reports: no symptoms Allergies: Coded Allergies: No Known Allergies (Unverified , 12/15/18) Objective Last 24 Hour Vital Signs Date Time Temp Pulse Resp B/P (MAP) Pulse Ox O2 Delivery O2 Flow Rate FiO2 12/31/18 11:55 97.8 12/31/18 09:12 87 12/31/18 09:11 64 139/76 12/31/18 08:38 98 Nasal Cannula 2.0 28 12/31/18 08:38 Nasal Cannula 2.0 28 12/31/18 08:38 64 22 Nasal Cannula 2.0 28 12/31/18 08:00 97.4 87 22 139/76 (97) 92 12/31/18 08:00 Nasal Cannula 2.0 12/31/18 08:00 91 12/31/18 04:08 102 12/31/18 04:00 Nasal Cannula 2.0 12/31/18 04:00 2.0 12/31/18 04:00 98.1 78 24 145/78 (100) 92 12/31/18 00:00 98.1 70 18 139/80 (99) 92 12/31/18 00:00 2.0 12/31/18 00:00 Nasal Cannula 2.0 12/30/18 23:40 68 12/30/18 21:17 82 136/91 12/30/18 20:00 Nasal Cannula 2.0 12/30/18 20:00 2.0 12/30/18 20:00 98.3 82 18 136/91 (106) 90 12/30/18 19:11 84 12/30/18 19:00 98 Nasal Cannula 2.0 28 12/30/18 19:00 Nasal Cannula 2.0 28 12/30/18 16:00 Nasal Cannula 2.0 12/30/18 16:00 2.0 12/30/18 16:00 99.1 75 20 92/50 (64) 100 12/30/18 16:00 76 Intake and Output 12/30/18 12/31/18 19:00 07:00 Intake Total 535 ml 120 ml Output Total 200 ml 350 ml Balance 335 ml -230 ml Intake Oral 480 ml 120 ml IV Total 55 ml Output Urine Total 200 ml 350 ml # Voids 2 Objective General Appearance: cachetic Respiratory/Chest: chest wall non-tender, lungs clear Cardiovascular: normal peripheral pulses, normal rate Abdomen: normal bowel sounds, soft, non tender Genitourinary: normal external genitalia Extremities: no clubbing Skin: no lesions Microbiology Date/Time Source Procedure Growth Status 12/29/18 16:00 Blood Blood Culture - Preliminary Gram Negative Bacillus 1 Resulted 12/29/18 15:45 Blood Blood Culture - Preliminary Gram Negative Bacillus 1 Resulted 12/28/18 21:30 Sputum Gram Stain - Final Complete 12/28/18 21:30 Sputum Culture - Final Klebsiella Pneumoniae Complete Laboratory Tests 12/30/18 15:25: Body Fluid Source Thoracentesis, Body Fluid Volume 24, Body Fluid Appearance Slightly hazy, Body Fluid RBC 495, Body Fluid Total Nucleated Cells 160, Body Fluid Polynuclear WBCs (%) 45, Body Fluid Mononuclear WBCs (%) 51, Body Fluid Mesothelial Cells (%) 4, Body Fluid Glucose 139, Body Fluid Total Protein 1.9, Body Fluid Albumin 1.0 12/31/18 03:20: White Blood Count 4.7L, Red Blood Count 3.49L, Hemoglobin 9.9L, Hematocrit 30.4L , Mean Corpuscular Volume 87, Mean Corpuscular Hemoglobin 28.5, Mean Corpuscular Hemoglobin Concent 32.6, Red Cell Distribution Width 16.9H, Platelet Count 115#L, Mean Platelet Volume 7.3, Neutrophils (%) (Auto) 66.2, Lymphocytes (%) (Auto) 21.9, Monocytes (%) (Auto) 10.1H, Eosinophils (%) (Auto) 0.8, Basophils (%) (Auto) 1.1, Sodium Level 143, Potassium Level 3.7, Chloride Level 107, Carbon Dioxide Level 28, Anion Gap 8, Blood Urea Nitrogen 19H, Creatinine 0.8, Estimat Glomerular Filtration Rate , Glucose Level 108H, Calcium Level 7.9L, Phosphorus Level 1.9L, Magnesium Level 1.8, Total Bilirubin 1.1H, Direct Bilirubin 0.2, Aspartate Amino Transf (AST/SGOT) 20, Alanine Aminotransferase (ALT/SGPT) 28, Alkaline Phosphatase 427H, Total Creatine Kinase 60, Pro-B-Type Natriuretic Peptide 12457U, Total Protein 6.1L, Albumin 1.8L, Globulin 4.3, Albumin/Globulin Ratio 0.4L, Digoxin Level 1.2 Current Medications Medications (Trade) Dose Ordered Sig/Brock Route PRN Reason Start Time Stop Time Status Last Admin Dose Admin Acetaminophen (Tylenol) 650 mg Q4H PRN ORAL fever 12/28/18 23:15 01/15/19 07:14 Albuterol/ Ipratropium (Albuterol/ Ipratropium) 3 ml Q4H PRN HHN Shortness of Breath 12/30/18 19:45 01/04/19 19:44 Amiodarone HCl (Cordarone) 200 mg DAILY ORAL 12/29/18 09:00 01/27/19 10:14 12/31/18 09:11 Colistimethate Sodium (Colistin) 150 mg Q12H IVP 12/30/18 13:00 01/06/19 12:59 12/31/18 01:06 Daptomycin 300 mg/ Sodium Chloride 55 ml @ 100 mls/hr Q24H IV 12/30/18 14:00 01/06/19 13:59 12/30/18 17:18 Dextrose (Dextrose 50%) 25 ml Q30M PRN IV Hypoglycemia 12/28/18 22:45 01/15/19 07:14 Dextrose (Dextrose 50%) 50 ml Q30M PRN IV Hypoglycemia 12/30/18 19:45 01/29/19 19:44 Digoxin (Lanoxin) 0.125 mg DAILY ORAL 12/29/18 09:00 01/18/19 08:59 12/31/18 09:12 Diltiazem HCl (Cardizem) 10 mg EVERY HOUR PRN IV heart rate more than 120 BPM 12/28/18 23:00 01/26/19 11:14 Docusate Sodium (Colace) 100 mg TWICE A DAY ORAL 12/31/18 18:00 01/30/19 17:59 Dronabinol (Marinol) 2.5 mg TID ORAL 12/29/18 09:00 01/27/19 12:59 12/30/18 17:47 Lidocaine HCl (Xylocaine 2% MPF) 5 ml ONCE INJ 12/31/18 11:15 12/31/18 13:00 Lorazepam (Ativan 2mg/ml 1ml) 1 mg ONCE IV 12/31/18 11:30 12/31/18 13:00 12/31/18 11:24 Metoprolol Tartrate (Lopressor) 100 mg EVERY 12 HOURS NG 12/29/18 09:00 01/17/19 08:59 12/31/18 09:11 Morphine Sulfate (Morphine Sulfate) 2 mg ONCE IVP 12/31/18 11:15 12/31/18 13:00 12/31/18 11:25 Pantoprazole (Protonix) 40 mg DAILY IV 12/29/18 09:00 01/17/19 08:59 12/31/18 09:11 Polyethylene Glycol (Miralax) 17 gm BEDTIME ORAL 12/31/18 21:00 01/30/19 20:59 Potassium Phosphate 20 mm/ Sodium Chloride 281.6667 ml @ 46.944 m... ONCE ONCE IV 12/31/18 10:00 12/31/18 15:59 12/31/18 10:11 Bryan Emerson MD Dec 31, 2018 12:38
--- NOTE | 2018-12-31 13:32 | General Progress Note ---
Assessment/Plan Problem List: (1) Respiratory failure with hypoxia ICD Codes: J96.91 - Respiratory failure, unspecified with hypoxia SNOMED: 12441429361992573 Qualifiers: Qualified Codes: J96.01 - Acute respiratory failure with hypoxia (2) Atrial fibrillation with rapid ventricular response ICD Codes: I48.91 - Unspecified atrial fibrillation SNOMED: 536358774881038, 647075508 (3) Severe anemia ICD Codes: D64.9 - Anemia, unspecified SNOMED: 866711275 (4) ATN (acute tubular necrosis) ICD Codes: N17.0 - Acute kidney failure with tubular necrosis SNOMED: 04315427 (5) DM (diabetes mellitus) ICD Codes: E11.9 - Type 2 diabetes mellitus without complications SNOMED: 32020658 (6) Fever ICD Codes: R50.9 - Fever, unspecified SNOMED: 101304643 Status: unchanged Assessment/Plan vent transfuse prn cardio heme eval f/u cbc bmp am id eval aru eval Subjective Constitutional: Reports: weakness Respiratory: Reports: shortness of breath Allergies: Coded Allergies: No Known Allergies (Unverified , 12/15/18) All Systems: reviewed and negative except above Subjective o2 nc sleepy Objective Last 24 Hour Vital Signs Date Time Temp Pulse Resp B/P (MAP) Pulse Ox O2 Delivery O2 Flow Rate FiO2 12/31/18 12:00 98.0 62 20 122/87 (99) 92 12/31/18 11:55 97.8 12/31/18 09:12 87 12/31/18 09:11 64 139/76 12/31/18 08:38 98 Nasal Cannula 2.0 28 12/31/18 08:38 Nasal Cannula 2.0 28 12/31/18 08:38 64 22 Nasal Cannula 2.0 28 12/31/18 08:00 97.4 87 22 139/76 (97) 92 12/31/18 08:00 Nasal Cannula 2.0 12/31/18 08:00 91 12/31/18 04:08 102 12/31/18 04:00 Nasal Cannula 2.0 12/31/18 04:00 2.0 12/31/18 04:00 98.1 78 24 145/78 (100) 92 12/31/18 00:00 98.1 70 18 139/80 (99) 92 12/31/18 00:00 2.0 12/31/18 00:00 Nasal Cannula 2.0 12/30/18 23:40 68 12/30/18 21:17 82 136/91 12/30/18 20:00 Nasal Cannula 2.0 12/30/18 20:00 2.0 12/30/18 20:00 98.3 82 18 136/91 (106) 90 12/30/18 19:11 84 12/30/18 19:00 98 Nasal Cannula 2.0 28 12/30/18 19:00 Nasal Cannula 2.0 28 12/30/18 16:00 Nasal Cannula 2.0 12/30/18 16:00 2.0 12/30/18 16:00 99.1 75 20 92/50 (64) 100 12/30/18 16:00 76 Intake and Output 12/30/18 12/31/18 19:00 07:00 Intake Total 535 ml 120 ml Output Total 200 ml 350 ml Balance 335 ml -230 ml Intake Oral 480 ml 120 ml IV Total 55 ml Output Urine Total 200 ml 350 ml # Voids 2 Laboratory Tests 12/30/18 15:25: Body Fluid Source Thoracentesis, Body Fluid Volume 24, Body Fluid Appearance Slightly hazy, Body Fluid RBC 495, Body Fluid Total Nucleated Cells 160, Body Fluid Polynuclear WBCs (%) 45, Body Fluid Mononuclear WBCs (%) 51, Body Fluid Mesothelial Cells (%) 4, Body Fluid Glucose 139, Body Fluid Total Protein 1.9, Body Fluid Albumin 1.0 12/31/18 03:20: White Blood Count 4.7L, Red Blood Count 3.49L, Hemoglobin 9.9L, Hematocrit 30.4L , Mean Corpuscular Volume 87, Mean Corpuscular Hemoglobin 28.5, Mean Corpuscular Hemoglobin Concent 32.6, Red Cell Distribution Width 16.9H, Platelet Count 115#L, Mean Platelet Volume 7.3, Neutrophils (%) (Auto) 66.2, Lymphocytes (%) (Auto) 21.9, Monocytes (%) (Auto) 10.1H, Eosinophils (%) (Auto) 0.8, Basophils (%) (Auto) 1.1, Sodium Level 143, Potassium Level 3.7, Chloride Level 107, Carbon Dioxide Level 28, Anion Gap 8, Blood Urea Nitrogen 19H, Creatinine 0.8, Estimat Glomerular Filtration Rate , Glucose Level 108H, Calcium Level 7.9L, Phosphorus Level 1.9L, Magnesium Level 1.8, Total Bilirubin 1.1H, Direct Bilirubin 0.2, Aspartate Amino Transf (AST/SGOT) 20, Alanine Aminotransferase (ALT/SGPT) 28, Alkaline Phosphatase 427H, Total Creatine Kinase 60, Pro-B-Type Natriuretic Peptide 25084J, Total Protein 6.1L, Albumin 1.8L, Globulin 4.3, Albumin/Globulin Ratio 0.4L, Digoxin Level 1.2 Height (Feet): 5 Height (Inches): 6.00 Weight (Pounds): 120 General Appearance: lethargic EENT: normal ENT inspection Neck: normal alignment Cardiovascular: normal peripheral pulses, normal rate, regular rhythm Respiratory/Chest: chest wall non-tender, decreased breath sounds Abdomen: normal bowel sounds, non tender, soft Extremities: normal inspection Edema: no edema noted Arm (L), no edema noted Arm (R), no edema noted Leg (L), no edema noted Leg (R), no edema noted Pedal (L), no edema noted Generalized Neurologic: motor weakness Skin: normal pigmentation, warm/dry Landry Green DO Dec 31, 2018 13:32
--- NOTE | 2018-12-31 13:41 | Cardiac Electrophysiology PN ---
Assessment/Plan Assessment/Plan 1. Atrial fibrillation with rapid ventricular response. Precipitated by profound anemia with hemoglobin of 3.5. Echocardiogram showed EF 45% with moderate to severe pulmonary hypertension. Converted to SR on 12/23/18 but back in atrial fib Off anticoagulations for gastrointestinal bleed and hemoglobin 3.5. On Amiodarone 200 mg po daily, Dig 0.125 mg po daily and Lopressor 100 bid 2. Troponin leak due to atrial fib with RVR 3. Hypertension. On Metoprolol 4. Pancytopenia with Profound anemia, hemoglobin of 3.5 and platelet 35. S/P EGD by Dr Caruso 12/22/18 gastritis . S/P PRBC BM Biopsy per Dr. Gooden 5. S/P Respiratory failure 6. Mild azotemia, BUN of 20, creatinine 1.0. 7. Pleural effusion, s/p thoracentesis DW RN Subjective Subjective Had 1560cc Left thoracentesis by IR yesterday. Objective Last 24 Hour Vital Signs Date Time Temp Pulse Resp B/P (MAP) Pulse Ox O2 Delivery O2 Flow Rate FiO2 12/31/18 12:00 98.0 62 20 122/87 (99) 92 12/31/18 12:00 100 12/31/18 11:55 97.8 12/31/18 09:12 87 12/31/18 09:11 64 139/76 12/31/18 08:38 98 Nasal Cannula 2.0 28 12/31/18 08:38 Nasal Cannula 2.0 28 12/31/18 08:38 64 22 Nasal Cannula 2.0 28 12/31/18 08:00 97.4 87 22 139/76 (97) 92 12/31/18 08:00 Nasal Cannula 2.0 12/31/18 08:00 91 12/31/18 04:08 102 12/31/18 04:00 Nasal Cannula 2.0 12/31/18 04:00 2.0 12/31/18 04:00 98.1 78 24 145/78 (100) 92 12/31/18 00:00 98.1 70 18 139/80 (99) 92 12/31/18 00:00 2.0 12/31/18 00:00 Nasal Cannula 2.0 12/30/18 23:40 68 12/30/18 21:17 82 136/91 12/30/18 20:00 Nasal Cannula 2.0 12/30/18 20:00 2.0 12/30/18 20:00 98.3 82 18 136/91 (106) 90 12/30/18 19:11 84 12/30/18 19:00 98 Nasal Cannula 2.0 28 12/30/18 19:00 Nasal Cannula 2.0 28 12/30/18 16:00 Nasal Cannula 2.0 12/30/18 16:00 2.0 12/30/18 16:00 99.1 75 20 92/50 (64) 100 12/30/18 16:00 76 Intake and Output 12/30/18 12/31/18 19:00 07:00 Intake Total 535 ml 120 ml Output Total 200 ml 350 ml Balance 335 ml -230 ml Intake Oral 480 ml 120 ml IV Total 55 ml Output Urine Total 200 ml 350 ml # Voids 2 Laboratory Tests Test 12/30/18 15:25 12/31/18 03:20 Body Fluid Source Thoracentesis Body Fluid Volume 24 mL Body Fluid Appearance Slightly hazy (Clear) Body Fluid RBC 495 /CUMM Body Fluid Total Nucleated Cells 160 /CUMM Body Fluid Polynuclear WBCs (%) 45 % Body Fluid Mononuclear WBCs (%) 51 % Body Fluid Mesothelial Cells (%) 4 % Body Fluid Glucose 139 mg/dL (.) Body Fluid Total Protein 1.9 g/dL (.) Body Fluid Albumin 1.0 g/dL (.) White Blood Count 4.7 K/UL (4.8-10.8) L Red Blood Count 3.49 M/UL (4.70-6.10) L Hemoglobin 9.9 G/DL (14.2-18.0) L Hematocrit 30.4 % (42.0-52.0) L Mean Corpuscular Volume 87 FL (80-99) Mean Corpuscular Hemoglobin 28.5 PG (27.0-31.0) Mean Corpuscular Hemoglobin Concent 32.6 G/DL (32.0-36.0) Red Cell Distribution Width 16.9 % (11.6-14.8) H Platelet Count 115 K/UL (150-450) #L Mean Platelet Volume 7.3 FL (6.5-10.1) Neutrophils (%) (Auto) 66.2 % (45.0-75.0) Lymphocytes (%) (Auto) 21.9 % (20.0-45.0) Monocytes (%) (Auto) 10.1 % (1.0-10.0) H Eosinophils (%) (Auto) 0.8 % (0.0-3.0) Basophils (%) (Auto) 1.1 % (0.0-2.0) Sodium Level 143 MMOL/L (136-145) Potassium Level 3.7 MMOL/L (3.5-5.1) Chloride Level 107 MMOL/L (98-107) Carbon Dioxide Level 28 MMOL/L (21-32) Anion Gap 8 mmol/L (5-15) Blood Urea Nitrogen 19 mg/dL (7-18) H Creatinine 0.8 MG/DL (0.55-1.30) Estimat Glomerular Filtration Rate mL/min (>60) Glucose Level 108 MG/DL (74-106) H Calcium Level 7.9 MG/DL (8.5-10.1) L Phosphorus Level 1.9 MG/DL (2.5-4.9) L Magnesium Level 1.8 MG/DL (1.8-2.4) Total Bilirubin 1.1 MG/DL (0.2-1.0) H Direct Bilirubin 0.2 MG/DL (0.0-0.3) Aspartate Amino Transf (AST/SGOT) 20 U/L (15-37) Alanine Aminotransferase (ALT/SGPT) 28 U/L (12-78) Alkaline Phosphatase 427 U/L (46-116) H Total Creatine Kinase 60 U/L (26-308) Pro-B-Type Natriuretic Peptide 54117 pg/mL (0-125) H Total Protein 6.1 G/DL (6.4-8.2) L Albumin 1.8 G/DL (3.4-5.0) L Globulin 4.3 g/dL Albumin/Globulin Ratio 0.4 (1.0-2.7) L Digoxin Level 1.2 NG/ML (0.5-2.0) Microbiology Date/Time Source Procedure Growth Status 12/29/18 16:00 Blood Blood Culture - Preliminary Gram Negative Bacillus 1 Resulted 12/29/18 15:45 Blood Blood Culture - Preliminary Gram Negative Bacillus 1 Resulted 12/28/18 21:30 Sputum Gram Stain - Final Complete 12/28/18 21:30 Sputum Culture - Final Klebsiella Pneumoniae Complete Objective HEAD AND NECK: No JVD LUNGS: Coarse rhonchi. CARDIOVASCULAR:Regular S1 and S2 with no gallop or murmur. ABDOMEN: Soft. Swollen scrotum EXTREMITIES: No edema. Shantanu Mcmillan MD Dec 31, 2018 13:41
[2018-12-31] MEDS: DAPTOmycin 300 MG in NS 55 ML IV SCH (13:59)
[2018-12-31] MEDS ORDERED: Isovue-300 100ml vial INJ PRN (14:15)
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
--- NOTE | 2018-12-31 15:00 | NUR ---
NURSE NOTES: patient is still asleep, unable to take contrast for ABD US. 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
--- NOTE | 2018-12-31 15:41 | NUR ---
NURSE NOTES:WOUND CARE NOTES :Pt noted by staff to have developed searing to sacrum. Partial thickness pressure injury noted .Base of wound with pink granulation,Edges with dark skin. Site non-tender when minimally palpated. no erythema or induration noted periwound (L)3cm x (W)1.8cm.. Pt demonstrated ability to reposition self when cued.Pt educated to reposition as frequently as tolerated off back to avoid further skin breakdown .Pt also instructed to lift buttocks off bed when repositioning to prevent further friction to skin and prevent wound from further decline.Pt verbalized understanding. Staff reported Pt's appetite is poor .Spoke with Emergency Operator and made aware of skin breakdown. Recommendations:Apply Triad Paste to Buttocks .Cover with Optifoam drsg .Change Q 3 days and prn. Encourage and assist with repositioning at least every 2hours or as tolerated. Off -load heels with pillow.+
[2018-12-31 16:00] VITALS: BP 146/78
[2018-12-31] MEDS ORDERED: Amikacin Rx to dose MISC PRN (16:00)
--- NOTE | 2018-12-31 16:16 | NUR ---
NURSE NOTES: dr ramesh made aware that patient was unable to take contrast media for CT Abdomen with contrast. per dr ramesh try again once patient wakes up.
[2018-12-31] MEDS: Amikacin 800 MG in NS 110 ML IV SCH (16:53)
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
[2018-12-31] MEDS: Meropenem 2 GM in NS 110 ML IVPB SCH ×2 (18:01→22:55)
[2018-12-31] MEDS: Docusate 100mg cap ORAL SCH (18:04)
--- NOTE | 2018-12-31 19:30 | NUR ---
HAND-OFF: Report given to ernie chaves.
--- NOTE | 2018-12-31 19:31 | NUR ---
NURSE NOTES: Received report from SARAI Myles. Patient in bed awake showing no signs of acute distress. Respiration even and non labored on room air. NO SOB noted. Vitals stable. IV lines patent and intact. All needs attended and met. Bed in lowest position. Call light with reach. Will continue plan of care. Addendum: 12/31/18 at 2015 by CLEMENT KUMARI RN on [facility]
[2018-12-31 20:00] VITALS: BP 142/80
[2018-12-31] MEDS: Miralax 17gm pkt ORAL SCH (22:25)
[2019-01-01] VITALS: BP 137/74
[2019-01-01] MEDS: Colistin 150mg vial IVP SCH (02:22)
[2019-01-01 04:00] VITALS: BP 144/78
[2019-01-01 05:45] LABS: BASOPHILS % (AUTO) 1.6 % (0.0-2.0); EOSINOPHILS % (AUTO) 0.7 % (0.0-3.0); HEMATOCRIT 33.6 % (42.0-52.0); HEMOGLOBIN 10.5 G/DL (14.2-18.0); LYMPHOCYTES % (AUTO) 22.8 % (20.0-45.0); MEAN CORPUSCULAR VOLUME 88 FL (80-99); MONOCYTES % (AUTO) 9.5 % (1.0-10.0); NEUTROPHILS % (AUTO) 65.4 % (45.0-75.0); PLATELET COUNT 108 K/UL (150-450); RED BLOOD COUNT 3.81 M/UL (4.70-6.10); RED CELL DISTRIBUTION WIDTH 17.3 % (11.6-14.8); WHITE BLOOD COUNT 5.1 K/UL (4.8-10.8)
[2019-01-01 06:06] LABS: ALANINE AMINOTRANSFERASE 31 U/L (12-78); ALBUMIN 1.9 G/DL (3.4-5.0); ALBUMIN/GLOBULIN RATIO 0.4 (1.0-2.7); ALKALINE PHOSPHATASE 451 U/L (46-116); ANION GAP 7 mmol/L (5-15); ASPARTATE AMINO TRANSFERASE 25 U/L (15-37); BLOOD UREA NITROGEN 19 mg/dL (7-18); CALCIUM 8.6 MG/DL (8.5-10.1); CARBON DIOXIDE 28 MMOL/L (21-32); CHLORIDE 107 MMOL/L (98-107); CREATININE 0.9 MG/DL (0.55-1.30); PHOSPHORUS 2.1 MG/DL (2.5-4.9); POTASSIUM 4.1 MMOL/L (3.5-5.1); SODIUM 142 MMOL/L (136-145)
[2019-01-01] MEDS: Meropenem 2 GM in NS 110 ML IVPB SCH (07:12)
--- NOTE | 2019-01-01 07:45 | NUR ---
HAND-OFF: Report given to SARAI Alexandra.
[2019-01-01 08:00] VITALS: BP 154/87
--- NOTE | 2019-01-01 08:25 | Diagnostic Imaging Report ---
EXAM: XR Chest, 1 View CLINICAL HISTORY: DYSPNEA TECHNIQUE: Frontal view of the chest. COMPARISON: Chest x-ray dated 12/30/18 FINDINGS: Lungs: No significant interval change in the diffuse bilateral interstitial and airspace edema versus infiltrates. Pleural space: Cannot exclude small bilateral layering pleural effusions. Heart: Unremarkable. No cardiomegaly. Mediastinum: Unremarkable. Bones/joints: Unremarkable. Tubes, lines and devices: Telemetry leads overlie the thorax. IMPRESSION: 1. No significant interval change in the diffuse bilateral interstitial and airspace edema versus infiltrates. 2. Cannot exclude small bilateral layering pleural effusions.
--- NOTE | 2019-01-01 08:26 | Nephrology Progress Note ---
Assessment/Plan Assessment/Plan A/P 1) E- ABN- hypophosphatemia - will replace phos today - avoid refeeding syndrome - replace Mg as well prn basis 2) Afib RVR- per cardiology 3) Sepsis- on Abx recurrent sepsis-multifactorial 2ry to bacteremia, PNA and UTI Persistent CRE/fernandez resistant Bacteremia- ? from UTI (however K pna in urine fairly sensitive; no presence of central lines currently)- r/o abscess - multiAbx, nephrotoxic - monitor Cr and aggressive IVFs hydration. Cr stable for now 4) Anemia- stable Subjective Date patient seen: Jan 01, 2019 Time patient seen: 08:24 ROS Limited/Unobtainable: No Allergies: Coded Allergies: No Known Allergies (Unverified , 12/15/18) Subjective Patient in no overt distress Objective Last 24 Hour Vital Signs Date Time Temp Pulse Resp B/P (MAP) Pulse Ox O2 Delivery O2 Flow Rate FiO2 01/01/19 04:00 69 01/01/19 04:00 97.6 72 18 144/78 (100) 94 01/01/19 00:00 89 01/01/19 00:00 97.7 80 18 137/74 (95) 93 12/31/18 22:25 78 142/80 12/31/18 21:00 Nasal Cannula 2.0 12/31/18 20:00 109 12/31/18 20:00 98.2 78 19 142/80 (100) 97 12/31/18 16:00 98.0 79 18 146/78 (100) 97 12/31/18 16:00 82 12/31/18 12:00 98.0 62 20 122/87 (99) 92 12/31/18 12:00 100 12/31/18 11:55 97.8 12/31/18 09:12 87 12/31/18 09:11 64 139/76 12/31/18 08:38 98 Nasal Cannula 2.0 28 12/31/18 08:38 Nasal Cannula 2.0 28 12/31/18 08:38 64 22 Nasal Cannula 2.0 28 Intake and Output 12/31/18 01/01/19 19:00 07:00 Intake Total 1198.064 ml 1255.347 ml Output Total 700 ml 450 ml Balance 498.064 ml 805.347 ml Intake Oral 240 ml IV Total 958.064 ml 1255.347 ml Output Urine Total 700 ml 450 ml Laboratory Tests 01/01/19 05:38: White Blood Count 5.1, Red Blood Count 3.81L, Hemoglobin 10.5L, Hematocrit 33.6L , Mean Corpuscular Volume 88, Mean Corpuscular Hemoglobin 27.6, Mean Corpuscular Hemoglobin Concent 31.3L, Red Cell Distribution Width 17.3H, Platelet Count 108L, Mean Platelet Volume 7.2, Neutrophils (%) (Auto) 65.4, Lymphocytes (%) (Auto) 22.8, Monocytes (%) (Auto) 9.5, Eosinophils (%) (Auto) 0.7, Basophils (%) (Auto) 1.6, Sodium Level 142, Potassium Level 4.1, Chloride Level 107, Carbon Dioxide Level 28, Anion Gap 7, Blood Urea Nitrogen 19H, Creatinine 0.9, Estimat Glomerular Filtration Rate , Glucose Level 113H, Calcium Level 8.6, Phosphorus Level 2.1L, Total Bilirubin 1.0, Aspartate Amino Transf (AST/SGOT) 25, Alanine Aminotransferase (ALT/SGPT) 31, Alkaline Phosphatase 451H, Ammonia 39H, Total Protein 6.6, Albumin 1.9L, Globulin 4.7, Albumin/Globulin Ratio 0.4L, Random Amikacin Level 7.5 Height (Feet): 5 Height (Inches): 6.00 Weight (Pounds): 120 General Appearance: no apparent distress, alert EENT: normal ENT inspection Neck: normal alignment, supple Cardiovascular: normal rate, regular rhythm Respiratory/Chest: crackles/rales Abdomen: non tender, soft Edema: no edema noted Arm (L), no edema noted Arm (R), no edema noted Leg (L), no edema noted Leg (R), no edema noted Pedal (L), no edema noted Pedal (R), no edema noted Generalized Sacha Jacome MD Jan 01, 2019 08:26
--- NOTE | 2019-01-01 08:38 | General Progress Note ---
Assessment/Plan Problem List: (1) Respiratory failure with hypoxia ICD Codes: J96.91 - Respiratory failure, unspecified with hypoxia SNOMED: 32647139033897321 Qualifiers: Qualified Codes: J96.01 - Acute respiratory failure with hypoxia (2) Atrial fibrillation with rapid ventricular response ICD Codes: I48.91 - Unspecified atrial fibrillation SNOMED: 598505338263971, 302579593 (3) Severe anemia ICD Codes: D64.9 - Anemia, unspecified SNOMED: 692463579 (4) ATN (acute tubular necrosis) ICD Codes: N17.0 - Acute kidney failure with tubular necrosis SNOMED: 41540540 (5) DM (diabetes mellitus) ICD Codes: E11.9 - Type 2 diabetes mellitus without complications SNOMED: 47643159 (6) Fever ICD Codes: R50.9 - Fever, unspecified SNOMED: 861312816 Status: unchanged Assessment/Plan vent transfuse prn cardio heme eval f/u cbc bmp am Subjective Constitutional: Reports: weakness Respiratory: Reports: shortness of breath Allergies: Coded Allergies: No Known Allergies (Unverified , 12/15/18) All Systems: reviewed and negative except above Subjective o2 nc sleepy Objective Last 24 Hour Vital Signs Date Time Temp Pulse Resp B/P (MAP) Pulse Ox O2 Delivery O2 Flow Rate FiO2 01/01/19 04:00 69 01/01/19 04:00 97.6 72 18 144/78 (100) 94 01/01/19 00:00 89 01/01/19 00:00 97.7 80 18 137/74 (95) 93 12/31/18 22:25 78 142/80 12/31/18 21:00 Nasal Cannula 2.0 12/31/18 20:00 109 12/31/18 20:00 98.2 78 19 142/80 (100) 97 12/31/18 16:00 98.0 79 18 146/78 (100) 97 12/31/18 16:00 82 12/31/18 12:00 98.0 62 20 122/87 (99) 92 12/31/18 12:00 100 12/31/18 11:55 97.8 12/31/18 09:12 87 12/31/18 09:11 64 139/76 Intake and Output 12/31/18 01/01/19 19:00 07:00 Intake Total 1198.064 ml 1255.347 ml Output Total 700 ml 450 ml Balance 498.064 ml 805.347 ml Intake Oral 240 ml IV Total 958.064 ml 1255.347 ml Output Urine Total 700 ml 450 ml Laboratory Tests 01/01/19 05:38: White Blood Count 5.1, Red Blood Count 3.81L, Hemoglobin 10.5L, Hematocrit 33.6L , Mean Corpuscular Volume 88, Mean Corpuscular Hemoglobin 27.6, Mean Corpuscular Hemoglobin Concent 31.3L, Red Cell Distribution Width 17.3H, Platelet Count 108L, Mean Platelet Volume 7.2, Neutrophils (%) (Auto) 65.4, Lymphocytes (%) (Auto) 22.8, Monocytes (%) (Auto) 9.5, Eosinophils (%) (Auto) 0.7, Basophils (%) (Auto) 1.6, Sodium Level 142, Potassium Level 4.1, Chloride Level 107, Carbon Dioxide Level 28, Anion Gap 7, Blood Urea Nitrogen 19H, Creatinine 0.9, Estimat Glomerular Filtration Rate , Glucose Level 113H, Calcium Level 8.6, Phosphorus Level 2.1L, Total Bilirubin 1.0, Aspartate Amino Transf (AST/SGOT) 25, Alanine Aminotransferase (ALT/SGPT) 31, Alkaline Phosphatase 451H, Ammonia 39H, Total Protein 6.6, Albumin 1.9L, Globulin 4.7, Albumin/Globulin Ratio 0.4L, Random Amikacin Level 7.5 Height (Feet): 5 Height (Inches): 6.00 Weight (Pounds): 120 General Appearance: lethargic EENT: normal ENT inspection Neck: normal alignment Cardiovascular: normal peripheral pulses, normal rate, regular rhythm Respiratory/Chest: chest wall non-tender, decreased breath sounds Abdomen: normal bowel sounds, non tender, soft Extremities: normal inspection Edema: no edema noted Arm (L), no edema noted Arm (R), no edema noted Leg (L), no edema noted Leg (R), no edema noted Pedal (L), no edema noted Pedal (R), no edema noted Generalized Neurologic: responsive, motor weakness Skin: normal pigmentation, warm/dry Landry Green DO Jan 01, 2019 08:38
--- NOTE | 2019-01-01 08:43 | General Progress Note ---
Assessment/Plan Problem List: (1) DM (diabetes mellitus) ICD Codes: E11.9 - Type 2 diabetes mellitus without complications SNOMED: 03315012 (2) Elevated LFTs ICD Codes: R94.5 - Abnormal results of liver function studies SNOMED: 634891421, 401102988 (3) Dysphagia ICD Codes: R13.10 - Dysphagia, unspecified SNOMED: 84965006, 713051806 (4) Severe anemia ICD Codes: D64.9 - Anemia, unspecified SNOMED: 144810107 (5) Atrial fibrillation with rapid ventricular response ICD Codes: I48.91 - Unspecified atrial fibrillation SNOMED: 749370382158307, 662867801 (6) Respiratory failure with hypoxia ICD Codes: J96.91 - Respiratory failure, unspecified with hypoxia SNOMED: 50830904496757471 Qualifiers: Qualified Codes: J96.01 - Acute respiratory failure with hypoxia (7) Irreducible right inguinal hernia ICD Codes: K40.30 - Unilateral inguinal hernia, with obstruction, without gangrene, not specified as recurrent SNOMED: 171752628 (8) Diverticulosis ICD Codes: K57.90 - Diverticulosis of intestine, part unspecified, without perforation or abscess without bleeding SNOMED: 402325018 (9) Gastritis ICD Codes: K29.70 - Gastritis, unspecified, without bleeding SNOMED: 2981268 (10) Pancytopenia ICD Codes: D61.818 - Other pancytopenia SNOMED: 947279876 (11) Prostate cancer ICD Codes: C61 - Malignant neoplasm of prostate SNOMED: 172483607 (12) Pleural effusion ICD Codes: J90 - Pleural effusion, not elsewhere classified SNOMED: 95070609 (13) Thrombocytopenia ICD Codes: D69.6 - Thrombocytopenia, unspecified SNOMED: 237735829 Assessment/Plan s/p EGD SUMMARY OF FINDINGS: Severe gastritis versus portal hypertensive gastropathy versus ischemia, status post biopsy. Diet per ST, on Marinol Continue on PPI. Carafate. Follow up biopsy results and treat accordingly. prn transfusions Electrolyte correction follow labs fu BM biopsy bowel regimen Subjective ROS Limited/Unobtainable: No Allergies: Coded Allergies: No Known Allergies (Unverified , 12/15/18) Objective Last 24 Hour Vital Signs Date Time Temp Pulse Resp B/P (MAP) Pulse Ox O2 Delivery O2 Flow Rate FiO2 3/16/19 04:00 69 01/01/19 04:00 97.6 72 18 144/78 (100) 94 01/01/19 00:00 89 01/01/19 00:00 97.7 80 18 137/74 (95) 93 12/31/18 22:25 78 142/80 12/31/18 21:00 Nasal Cannula 2.0 12/31/18 20:00 109 12/31/18 20:00 98.2 78 19 142/80 (100) 97 12/31/18 16:00 98.0 79 18 146/78 (100) 97 12/31/18 16:00 82 12/31/18 12:00 98.0 62 20 122/87 (99) 92 12/31/18 12:00 100 12/31/18 11:55 97.8 12/31/18 09:12 87 12/31/18 09:11 64 139/76 Intake and Output 12/31/18 01/01/19 19:00 07:00 Intake Total 1198.064 ml 1255.347 ml Output Total 700 ml 450 ml Balance 498.064 ml 805.347 ml Intake Oral 240 ml IV Total 958.064 ml 1255.347 ml Output Urine Total 700 ml 450 ml Laboratory Tests 01/01/19 05:38: White Blood Count 5.1, Red Blood Count 3.81L, Hemoglobin 10.5L, Hematocrit 33.6L , Mean Corpuscular Volume 88, Mean Corpuscular Hemoglobin 27.6, Mean Corpuscular Hemoglobin Concent 31.3L, Red Cell Distribution Width 17.3H, Platelet Count 108L, Mean Platelet Volume 7.2, Neutrophils (%) (Auto) 65.4, Lymphocytes (%) (Auto) 22.8, Monocytes (%) (Auto) 9.5, Eosinophils (%) (Auto) 0.7, Basophils (%) (Auto) 1.6, Sodium Level 142, Potassium Level 4.1, Chloride Level 107, Carbon Dioxide Level 28, Anion Gap 7, Blood Urea Nitrogen 19H, Creatinine 0.9, Estimat Glomerular Filtration Rate , Glucose Level 113H, Calcium Level 8.6, Phosphorus Level 2.1L, Total Bilirubin 1.0, Aspartate Amino Transf (AST/SGOT) 25, Alanine Aminotransferase (ALT/SGPT) 31, Alkaline Phosphatase 451H, Ammonia 39H, Total Protein 6.6, Albumin 1.9L, Globulin 4.7, Albumin/Globulin Ratio 0.4L, Random Amikacin Level 7.5 Height (Feet): 5 Height (Inches): 6.00 Weight (Pounds): 120 General Appearance: no apparent distress EENT: normal ENT inspection Neck: supple Cardiovascular: normal rate Respiratory/Chest: decreased breath sounds Abdomen: normal bowel sounds, non tender, soft Extremities: non-tender Mike Caruso MD Jan 01, 2019 08:43
[2019-01-01] MEDS: Docusate 100mg cap ORAL SCH ×2 (09:00→17:49)
[2019-01-01] MEDS ORDERED: Amikacin Rx to dose MISC PRN (09:00)
[2019-01-01] MEDS ORDERED: NS IVPB SCH (09:30)
[2019-01-01] MEDS ORDERED: SODIUM PHOSPHATE IVPB SCH (09:30)
[2019-01-01] MEDS: Pantoprazole Inj IV SCH (09:47)
[2019-01-01] MEDS: Amiodarone 200mg tab ORAL SCH (09:47)
[2019-01-01] MEDS: Digoxin 0.125mg tab ORAL SCH (09:48)
[2019-01-01] MEDS: Bicalutamide 50mg tab ORAL SCH (09:48)
[2019-01-01] MEDS: Dronabinol 2.5mg Cap ORAL SCH ×3 (09:48→17:57)
--- NOTE | 2019-01-01 10:28 | Diagnostic Imaging Report ---
EXAM: CT Abdomen and Pelvis With Intravenous Contrast CLINICAL HISTORY: ABSCESS TECHNIQUE: Axial computed tomography images of the abdomen and pelvis with intravenous contrast. CTDI is 9.15 mGy and DLP is 638 mGy-cm. One or more of the following dose reduction techniques were used: automated exposure control, adjustment of the mA and/or kV according to patient size, use of iterative reconstruction technique. Oral contrast was administered. Coronal and sagittal reformatted images were created and reviewed. COMPARISON: No relevant prior studies available. FINDINGS: Lung bases: Interval worsening of near complete consolidation of the left lower lobe with air bronchograms, which may suggest pneumonia versus atelectasis. Dependent consolidation in the right lung base, which may represent atelectasis versus pneumonia, stable. Pleural space: Moderate right sided layering pleural effusion, mildly increased compared to the prior exam. No significant change in the small layering left pleural effusion. ABDOMEN: Liver: A millimeters simple-appearing cyst in the right hepatic lobe. The liver otherwise appears unremarkable. No intrahepatic biliary ductal dilatation. Gallbladder and bile ducts: See above. Pancreas: Unremarkable. No mass. No ductal dilation. Spleen: Unremarkable. No splenomegaly. Adrenals: Unremarkable. No mass. Kidneys and ureters: No significant change in numerous renal cortical cysts, largest measuring 4.7 x 4.5 cm in the left upper renal pole. Unchanged calcifications noted within one of the cysts in the right mid kidney. No hydronephrosis or hydroureter. Unchanged diffuse distention of the urinary bladder. No radiodense luminal stones. No hydronephrosis or hydroureter. Stomach and bowel: No significant interval change in the massive right- sided indirect inguinal hernia with loops of small bowel and colon in the right scrotum. No evidence of bowel obstruction or strangulation. PELVIS: Appendix: No findings to suggest acute appendicitis. Bladder: Unremarkable. No visible stones. Reproductive: Unremarkable as visualized. ABDOMEN and PELVIS: Intraperitoneal space: Unremarkable. No free air. No significant fluid collection. Bones/joints: Diffuse skeletal osteosclerosis, unchanged. No acute fracture. No dislocation. Soft tissues: Unchanged appearance of diffuse of diffuse soft tissue edema/anasarca. See above for discussion of the massive right inguinal hernia containing colon and bowel. Vasculature: Unremarkable. No abdominal aortic aneurysm. Lymph nodes: Unremarkable. No enlarged lymph nodes. IMPRESSION: 1. No significant interval change in the massive right-sided indirect inguinal hernia with loops of small bowel and colon in the right scrotum. No evidence of bowel obstruction or strangulation. 2. Moderate right sided layering pleural effusion, mildly increased compared to the prior exam. No significant change in the small layering left pleural effusion. 3. Interval worsening of near complete consolidation of the left lower lobe with air bronchograms, which may suggest pneumonia versus atelectasis. 4. Dependent consolidation in the right lung base, which may represent atelectasis versus pneumonia, stable. 5. Unchanged appearance of diffuse of diffuse soft tissue edema/anasarca. 6. Unchanged appearance of hepatic and renal cysts. 7. Diffuse skeletal osteosclerosis, unchanged.
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
[2019-01-01] MEDS: Aztreonam 1gm/D5W 55ml IVPB SCH ×4 (11:15→17:49)
--- NOTE | 2019-01-01 11:29 | Surgery Progress Note ---
Surgery Progress Note Subjective Additional Comments doing well. comfortable. labs okay. CT reviewed. stable. Objective Last 24 Hour Vital Signs Date Time Temp Pulse Resp B/P (MAP) Pulse Ox O2 Delivery O2 Flow Rate FiO2 01/01/19 09:48 75 144/78 01/01/19 09:48 75 01/01/19 09:10 98 Nasal Cannula 2.0 28 01/01/19 09:10 76 20 Nasal Cannula 2.0 28 01/01/19 09:10 Nasal Cannula 2.0 28 01/01/19 04:00 69 01/01/19 04:00 97.6 72 18 144/78 (100) 94 01/01/19 00:00 89 01/01/19 00:00 97.7 80 18 137/74 (95) 93 12/31/18 22:25 78 142/80 12/31/18 21:00 Nasal Cannula 2.0 12/31/18 20:00 109 12/31/18 20:00 98.2 78 19 142/80 (100) 97 12/31/18 16:00 98.0 79 18 146/78 (100) 97 12/31/18 16:00 82 12/31/18 12:00 98.0 62 20 122/87 (99) 92 12/31/18 12:00 100 12/31/18 11:55 97.8 I&O Intake and Output 12/31/18 01/01/19 19:00 07:00 Intake Total 1198.064 ml 1255.347 ml Output Total 700 ml 450 ml Balance 498.064 ml 805.347 ml Intake Oral 240 ml IV Total 958.064 ml 1255.347 ml Output Urine Total 700 ml 450 ml Drains: none Cardiovascular: RSR Respiratory: clear Abdomen: soft, flat, non-tender, other, non-distended Extremities: no cyanosis Laboratory Tests Test 01/01/19 05:38 White Blood Count 5.1 K/UL (4.8-10.8) Red Blood Count 3.81 M/UL (4.70-6.10) L Hemoglobin 10.5 G/DL (14.2-18.0) L Hematocrit 33.6 % (42.0-52.0) L Mean Corpuscular Volume 88 FL (80-99) Mean Corpuscular Hemoglobin 27.6 PG (27.0-31.0) Mean Corpuscular Hemoglobin Concent 31.3 G/DL (32.0-36.0) L Red Cell Distribution Width 17.3 % (11.6-14.8) H Platelet Count 108 K/UL (150-450) L Mean Platelet Volume 7.2 FL (6.5-10.1) Neutrophils (%) (Auto) 65.4 % (45.0-75.0) Lymphocytes (%) (Auto) 22.8 % (20.0-45.0) Monocytes (%) (Auto) 9.5 % (1.0-10.0) Eosinophils (%) (Auto) 0.7 % (0.0-3.0) Basophils (%) (Auto) 1.6 % (0.0-2.0) Sodium Level 142 MMOL/L (136-145) Potassium Level 4.1 MMOL/L (3.5-5.1) Chloride Level 107 MMOL/L (98-107) Carbon Dioxide Level 28 MMOL/L (21-32) Anion Gap 7 mmol/L (5-15) Blood Urea Nitrogen 19 mg/dL (7-18) H Creatinine 0.9 MG/DL (0.55-1.30) Estimat Glomerular Filtration Rate mL/min (>60) Glucose Level 113 MG/DL (74-106) H Calcium Level 8.6 MG/DL (8.5-10.1) Phosphorus Level 2.1 MG/DL (2.5-4.9) L Total Bilirubin 1.0 MG/DL (0.2-1.0) Aspartate Amino Transf (AST/SGOT) 25 U/L (15-37) Alanine Aminotransferase (ALT/SGPT) 31 U/L (12-78) Alkaline Phosphatase 451 U/L (46-116) H Ammonia 39 umol/L (11-32) H Total Protein 6.6 G/DL (6.4-8.2) Albumin 1.9 G/DL (3.4-5.0) L Globulin 4.7 g/dL Albumin/Globulin Ratio 0.4 (1.0-2.7) L Random Amikacin Level 7.5 ug/mL Plan Problems: (1) Inguinal hernia Assessment & Plan: 78 year old male with massive inguinal hernia with bowel contents. CT with Massive indirect right inguinal hernia, containing the proximal colon and much if not most of the small bowel. No definite evidence of obstruction or strangulation Anasarca, with diffuse extensive bilateral pulmonary edema, bilateral pleural effusions, small amount of free intraperitoneal fluid, and extensive edema of the subcutaneous and mediastinal fat Colonic diverticulosis Diffuse skeletal osteosclerosis Distended bladder Prostatomegaly Large bilateral renal cysts. Calcification in the periventricular right kidney likely represent old involuted calcified cyst Nasogastric tube Incidental finding right lobe liver cyst On exam large inguinal hernia with bowel contents in scrotum not reducible but no signs of obstruction / strangulation. in reviewing CT likely loss of domain given patients body habitus compared to hernia size. patient awake but intubated on vent support. no tenderness but does have discomfort with manipulation. given above no acute surgical intervention planned as this is likely chronic and with loss of domain. unlikely to be incarcerated but will need to keep an eye on it as bowel can obstruction will follow with exams No significant interval change in the massive right-sided indirect inguinal hernia with loops of small bowel and colon in the right scrotum. No evidence of bowel obstruction or strangulation. Moderate right sided layering pleural effusion, mildly increased compared to the prior exam. No significant change in the small layering left pleural effusion. Interval worsening of near complete consolidation of the left lower lobe with air bronchograms, which may suggest pneumonia versus atelectasis. Dependent consolidation in the right lung base, which may represent atelectasis versus pneumonia, stable. Unchanged appearance of diffuse of diffuse soft tissue edema/anasarca. Unchanged appearance of hepatic and renal cysts. Diffuse skeletal osteosclerosis, unchanged. leukocytosis resolved CXR noted after thoracentesis - resolved pleural effusion Abx as per ID appreciate Cardiology input pending bone marrow biopsy results EGD results noted thank you (2) Pleural effusion Assessment & Plan: s/p thoracentesis with removal of near 1600cc fluids CXR noted after thoracentesis - resolved pleural effusion AM CXR Yordy Tucker Jan 01, 2019 11:29
[2019-01-01 12:00] VITALS: BP 153/86
[2019-01-01] MEDS: SODIUM CHLORIDE IVPB SCH ×4 (12:51→20:45)
[2019-01-01] MEDS: CEFTAZIDIME IVPB SCH ×4 (12:51→20:45)
[2019-01-01] MEDS: AVIBACTAM IVPB SCH ×4 (12:51→20:45)
[2019-01-01] MEDS: DAPTOmycin 300 MG in NS 55 ML IV SCH (14:46)
--- NOTE | 2019-01-01 15:12 | Cardiac Electrophysiology PN ---
Assessment/Plan Assessment/Plan 1. Paroxysmal atrial fibrillation with rapid ventricular response. Precipitated by profound anemia with hemoglobin of 3.5. EF 45% with moderate to severe pulmonary hypertension. Converted to SR on 12/23/18 but back in atrial fib Off anticoagulations for gastrointestinal bleed and hemoglobin 3.5. On Amiodarone 200 mg po daily, Dig 0.125 mg po daily and Lopressor 100 bid 2. Troponin leak due to atrial fib with RVR 3. Hypertension. On Metoprolol 4. Pancytopenia with Profound anemia, hemoglobin of 3.5 and platelet 35. S/P EGD by Dr Caruso 12/22/18 gastritis . S/P PRBC S/p BM Biopsy 12/31/[address] Gooden 5. S/P Respiratory failure 6. Mild azotemia, BUN of 20, creatinine 1.0. 7. Klebsiella PNA. Pleural effusion, s/p thoracentesis 8. Positive blood cx Carbapenem resistant Klebsilella. Repeat Echo to R/O vegetation On Abx per Dr Cierra GARCIA RN Subjective Subjective Had 1560cc Left thoracentesis by IR 12/30/18. Had BM biopsy yesterday. Repeat echo done today to RU vegetation In atrial fib with controlled rate Objective Last 24 Hour Vital Signs Date Time Temp Pulse Resp B/P (MAP) Pulse Ox O2 Delivery O2 Flow Rate FiO2 01/01/19 09:48 75 144/78 01/01/19 09:48 75 01/01/19 09:10 98 Nasal Cannula 2.0 28 01/01/19 09:10 76 20 Nasal Cannula 2.0 28 01/01/19 09:10 Nasal Cannula 2.0 28 01/01/19 04:00 69 01/01/19 04:00 97.6 72 18 144/78 (100) 94 01/01/19 00:00 89 01/01/19 00:00 97.7 80 18 137/74 (95) 93 12/31/18 22:25 78 142/80 12/31/18 21:00 Nasal Cannula 2.0 12/31/18 20:00 109 12/31/18 20:00 98.2 78 19 142/80 (100) 97 12/31/18 16:00 98.0 79 18 146/78 (100) 97 12/31/18 16:00 82 Intake and Output 12/31/18 01/01/19 19:00 07:00 Intake Total 1198.064 ml 1255.347 ml Output Total 700 ml 450 ml Balance 498.064 ml 805.347 ml Intake Oral 240 ml IV Total 958.064 ml 1255.347 ml Output Urine Total 700 ml 450 ml Laboratory Tests Test 01/01/19 05:38 White Blood Count 5.1 K/UL (4.8-10.8) Red Blood Count 3.81 M/UL (4.70-6.10) L Hemoglobin 10.5 G/DL (14.2-18.0) L Hematocrit 33.6 % (42.0-52.0) L Mean Corpuscular Volume 88 FL (80-99) Mean Corpuscular Hemoglobin 27.6 PG (27.0-31.0) Mean Corpuscular Hemoglobin Concent 31.3 G/DL (32.0-36.0) L Red Cell Distribution Width 17.3 % (11.6-14.8) H Platelet Count 108 K/UL (150-450) L Mean Platelet Volume 7.2 FL (6.5-10.1) Neutrophils (%) (Auto) 65.4 % (45.0-75.0) Lymphocytes (%) (Auto) 22.8 % (20.0-45.0) Monocytes (%) (Auto) 9.5 % (1.0-10.0) Eosinophils (%) (Auto) 0.7 % (0.0-3.0) Basophils (%) (Auto) 1.6 % (0.0-2.0) Sodium Level 142 MMOL/L (136-145) Potassium Level 4.1 MMOL/L (3.5-5.1) Chloride Level 107 MMOL/L (98-107) Carbon Dioxide Level 28 MMOL/L (21-32) Anion Gap 7 mmol/L (5-15) Blood Urea Nitrogen 19 mg/dL (7-18) H Creatinine 0.9 MG/DL (0.55-1.30) Estimat Glomerular Filtration Rate mL/min (>60) Glucose Level 113 MG/DL (74-106) H Calcium Level 8.6 MG/DL (8.5-10.1) Phosphorus Level 2.1 MG/DL (2.5-4.9) L Total Bilirubin 1.0 MG/DL (0.2-1.0) Aspartate Amino Transf (AST/SGOT) 25 U/L (15-37) Alanine Aminotransferase (ALT/SGPT) 31 U/L (12-78) Alkaline Phosphatase 451 U/L (46-116) H Ammonia 39 umol/L (11-32) H Total Protein 6.6 G/DL (6.4-8.2) Albumin 1.9 G/DL (3.4-5.0) L Globulin 4.7 g/dL Albumin/Globulin Ratio 0.4 (1.0-2.7) L Random Amikacin Level 7.5 ug/mL Microbiology Date/Time Source Procedure Growth Status 12/29/18 16:00 Blood Blood Culture - Final Klebsiella Pneumoniae Complete 12/29/18 15:45 Blood Blood Culture - Preliminary Klebsiella Pneumoniae Resulted Objective HEAD AND NECK: No JVD LUNGS: Coarse rhonchi. CARDIOVASCULAR:Regular S1 and S2 with no gallop or murmur. ABDOMEN: Soft. Swollen scrotum EXTREMITIES: No edema. Shantanu Mcmillan MD Jan 01, 2019 15:12
--- NOTE | 2019-01-01 15:44 | Pulmonology Progress Note ---
Assessment/Plan Problems: (1) Pleural effusion (2) Prostate cancer (3) Acute respiratory failure (4) Respiratory failure with hypoxia (5) Atrial fibrillation with rapid ventricular response (6) Thrombocytopenia (7) DM (diabetes mellitus) Assessment/Plan doing better transfuse prn PLT awaiting bone marrow biopsy results and cytology from pleural effusion titrate fio2 to sat of 92% continue monitoring heart rate Persistent bacteremia is concerning for malignancy. Subjective Interval Events: paroxysmal afib Allergies: Coded Allergies: No Known Allergies (Unverified , 12/15/18) Objective Last 24 Hour Vital Signs Date Time Temp Pulse Resp B/P (MAP) Pulse Ox O2 Delivery O2 Flow Rate FiO2 01/01/19 12:00 98.2 85 20 153/86 (108) 97 01/01/19 12:00 84 01/01/19 09:48 75 144/78 01/01/19 09:48 75 01/01/19 09:10 98 Nasal Cannula 2.0 28 01/01/19 09:10 76 20 Nasal Cannula 2.0 28 01/01/19 09:10 Nasal Cannula 2.0 28 01/01/19 08:00 75 01/01/19 08:00 98.0 75 20 154/87 (109) 92 01/01/19 04:00 69 01/01/19 04:00 97.6 72 18 144/78 (100) 94 01/01/19 00:00 89 01/01/19 00:00 97.7 80 18 137/74 (95) 93 12/31/18 22:25 78 142/80 12/31/18 21:00 Nasal Cannula 2.0 12/31/18 20:00 109 12/31/18 20:00 98.2 78 19 142/80 (100) 97 12/31/18 16:00 98.0 79 18 146/78 (100) 97 12/31/18 16:00 82 Intake and Output 12/31/18 01/01/19 19:00 07:00 Intake Total 1198.064 ml 1255.347 ml Output Total 700 ml 450 ml Balance 498.064 ml 805.347 ml Intake Oral 240 ml IV Total 958.064 ml 1255.347 ml Output Urine Total 700 ml 450 ml Objective General Appearance: cachetic Respiratory/Chest: chest wall non-tender, lungs clear Cardiovascular: normal peripheral pulses, normal rate Abdomen: normal bowel sounds, soft, non tender Genitourinary: normal external genitalia Extremities: no clubbing Skin: no lesions Microbiology Date/Time Source Procedure Growth Status 12/29/18 16:00 Blood Blood Culture - Final Klebsiella Pneumoniae Complete 12/29/18 15:45 Blood Blood Culture - Preliminary Klebsiella Pneumoniae Resulted Laboratory Tests 01/01/19 05:38: White Blood Count 5.1, Red Blood Count 3.81L, Hemoglobin 10.5L, Hematocrit 33.6L , Mean Corpuscular Volume 88, Mean Corpuscular Hemoglobin 27.6, Mean Corpuscular Hemoglobin Concent 31.3L, Red Cell Distribution Width 17.3H, Platelet Count 108L, Mean Platelet Volume 7.2, Neutrophils (%) (Auto) 65.4, Lymphocytes (%) (Auto) 22.8, Monocytes (%) (Auto) 9.5, Eosinophils (%) (Auto) 0.7, Basophils (%) (Auto) 1.6, Sodium Level 142, Potassium Level 4.1, Chloride Level 107, Carbon Dioxide Level 28, Anion Gap 7, Blood Urea Nitrogen 19H, Creatinine 0.9, Estimat Glomerular Filtration Rate , Glucose Level 113H, Calcium Level 8.6, Phosphorus Level 2.1L, Total Bilirubin 1.0, Aspartate Amino Transf (AST/SGOT) 25, Alanine Aminotransferase (ALT/SGPT) 31, Alkaline Phosphatase 451H, Ammonia 39H, Total Protein 6.6, Albumin 1.9L, Globulin 4.7, Albumin/Globulin Ratio 0.4L, Random Amikacin Level 7.5 Current Medications Medications (Trade) Dose Ordered Sig/Brock Route PRN Reason Start Time Stop Time Status Last Admin Dose Admin Acetaminophen (Tylenol) 650 mg Q4H PRN ORAL fever 12/28/18 23:15 01/15/19 07:14 Albuterol/ Ipratropium (Albuterol/ Ipratropium) 3 ml Q4H PRN HHN Shortness of Breath 12/30/18 19:45 01/04/19 19:44 Amikacin Protocol (Amikacin pharmacy to dose) 1 ea DAILY PRN MISC Per rx protocol 12/31/18 16:00 01/30/19 15:59 Amikacin Sulfate 800 mg/Sodium Chloride 113.2 ml @ 226.4 mls/ hr Q36H IV 3/15/19 17:00 01/07/19 16:59 12/31/18 16:53 Amiodarone HCl (Cordarone) 200 mg DAILY ORAL 12/29/18 09:00 01/27/19 10:14 01/01/19 09:47 Aztreonam 1 gm/ Dextrose 55 ml @ 110 mls/hr Q8HR@0200,1000,1800 IVPB 01/01/19 10:00 01/08/19 09:59 01/01/19 11:15 Barium Sulfate (Readi-Cat 2) 450 ml NOW PRN ORAL Radiology Procedure 12/31/18 14:15 01/02/19 14:04 Bicalutamide (Casodex) 50 mg DAILY ORAL 01/01/19 09:00 01/06/19 08:59 01/01/19 09:48 Ceftazidime/ Avibactam 2.5 gm/ Sodium Chloride 110 ml @ 55 mls/hr Q8HR@0400,1200,2000 IVPB 01/01/19 12:00 01/08/19 11:59 01/01/19 12:51 Daptomycin 300 mg/ Sodium Chloride 55 ml @ 100 mls/hr Q24H IV 12/30/18 14:00 01/06/19 13:59 01/01/19 14:46 Dextrose (Dextrose 50%) 25 ml Q30M PRN IV Hypoglycemia 12/28/18 22:45 01/15/19 07:14 Dextrose (Dextrose 50%) 50 ml Q30M PRN IV Hypoglycemia 12/30/18 19:45 01/29/19 19:44 Digoxin (Lanoxin) 0.125 mg DAILY ORAL 12/29/18 09:00 01/18/19 08:59 01/01/19 09:48 Diltiazem HCl (Cardizem) 10 mg EVERY HOUR PRN IV heart rate more than 120 BPM 12/28/18 23:00 01/26/19 11:14 Docusate Sodium (Colace) 100 mg TWICE A DAY ORAL 12/31/18 18:00 01/30/19 17:59 12/31/18 18:04 Dronabinol (Marinol) 2.5 mg TID ORAL 12/29/18 09:00 01/27/19 12:59 01/01/19 12:58 Iopamidol (Isovue-300 100ml) 100 ml NOW PRN INJ Radiology Procedure 12/31/18 14:15 Metoprolol Tartrate (Lopressor) 100 mg EVERY 12 HOURS NG 12/29/18 09:00 01/17/19 08:59 01/01/19 09:48 Pantoprazole (Protonix) 40 mg DAILY IV 12/29/18 09:00 01/17/19 08:59 01/01/19 09:47 Polyethylene Glycol (Miralax) 17 gm BEDTIME ORAL 12/31/18 21:00 01/30/19 20:59 12/31/18 22:25 Sodium Chloride 1,000 ml @ 125 mls/hr Q8H IV 12/31/18 16:45 01/30/19 16:44 01/01/19 02:22 Bryan Emerson MD Jan 01, 2019 15:44
[2019-01-01 16:00] VITALS: BP 150/94
--- NOTE | 2019-01-01 19:50 | NUR ---
NURSE NOTES: Received report from SARAI Brown. Patient is awake lying semi-lipscomb's; resting comfortably. No signs of acute distress noted; denies pain at this time. On 2L nasal cannula. AOx3; able to make needs known. Checked IV site, lines, and IV rate; patent and running. No bleeding, erythema, or infiltration noted. Condom catheter draining yellow urine. Bed at lowest position, brakes on, siderails up x3. Call light within reach. Will continue to monitor.
[2019-01-01 20:00] VITALS: BP 115/76
[2019-01-01] MEDS: Miralax 17gm pkt ORAL SCH (20:46)
[2019-01-02] VITALS: BP 154/74
[2019-01-02] MEDS: Aztreonam 1gm/D5W 55ml IVPB SCH ×6 (02:03→18:04)
--- NOTE | 2019-01-02 03:35 | NUR ---
NURSE NOTES: Patient is asleep lying high-lipscomb's; resting comfortably. No signs of acute distress or pain noted at this time. On 2L nasal cannula.
[2019-01-02 04:00] VITALS: BP 165/78
[2019-01-02] MEDS: SODIUM CHLORIDE IVPB SCH ×6 (04:06→20:57)
[2019-01-02] MEDS: AVIBACTAM IVPB SCH ×6 (04:06→20:57)
[2019-01-02] MEDS: CEFTAZIDIME IVPB SCH ×6 (04:06→20:57)
[2019-01-02] MEDS: Amikacin 800 MG in NS 110 ML IV SCH (06:23)
[2019-01-02 06:38] LABS: BASOPHILS % (AUTO) 0.7 % (0.0-2.0); EOSINOPHILS % (AUTO) 0.7 % (0.0-3.0); HEMATOCRIT 27.1 % (42.0-52.0); HEMOGLOBIN 8.9 G/DL (14.2-18.0); LYMPHOCYTES % (AUTO) 21.2 % (20.0-45.0); MEAN CORPUSCULAR VOLUME 87 FL (80-99); MONOCYTES % (AUTO) 8.4 % (1.0-10.0); PLATELET COUNT 106 K/UL (150-450); RED BLOOD COUNT 3.13 M/UL (4.70-6.10); RED CELL DISTRIBUTION WIDTH 16.8 % (11.6-14.8); WHITE BLOOD COUNT 5.5 K/UL (4.8-10.8)
[2019-01-02 07:13] LABS: ANION GAP 7 mmol/L (5-15); BLOOD UREA NITROGEN 19 mg/dL (7-18); CALCIUM 8.4 MG/DL (8.5-10.1); CARBON DIOXIDE 27 MMOL/L (21-32); CHLORIDE 107 MMOL/L (98-107); CREATININE 0.8 MG/DL (0.55-1.30); PHOSPHORUS 1.7 MG/DL (2.5-4.9); POTASSIUM 3.6 MMOL/L (3.5-5.1); SODIUM 141 MMOL/L (136-145)
--- NOTE | 2019-01-02 07:23 | NUR ---
HAND-OFF: Report given to SARAI Buchanan. Patient is awake lying high-lipscomb's; resting comfortably. On 2L nasal cannula. In stable condition.
--- NOTE | 2019-01-02 07:52 | NUR ---
NURSE NOTES: Received report from SARAI Reed. Patient in bed resting, no active s/s cardiac, respiratory distress noticed at this time, patient on 2L oxygen via NC. Denies pain at this time, IV on right wrist 20G, IV fluid running at prescribed rate, asymptomatic, patent, intact. Endorsed Dr. Mcmillan made aware of troponin level. Bed in lowest position, side rails upx3, call light within reach. Will continue to monitor.
[2019-01-02 08:00] VITALS: BP 146/80
--- NOTE | 2019-01-02 08:02 | Nephrology Progress Note ---
Assessment/Plan Assessment/Plan A/P 1) E- ABN- hypophosphatemia/Mg/K+ ( on Amikacin/Colistin) - all being replaced today - refeeding syndrome 2) Afib RVR- per cardiology 3) Sepsis- on Abx recurrent sepsis-multifactorial 2ry to bacteremia, PNA and UTI Persistent CRE/fernandez resistant Bacteremia- ? from UTI (however K pna in urine fairly sensitive; no presence of central lines currently)- r/o abscess - multiAbx, nephrotoxic - Cr stable and aggressive IVFs hydration. 4) Anemia- stable Subjective Date patient seen: Jan 02, 2019 Time patient seen: 08:00 ROS Limited/Unobtainable: No Allergies: Coded Allergies: No Known Allergies (Unverified , 12/15/18) Subjective Patient having brkfst and no complaints Objective Last 24 Hour Vital Signs Date Time Temp Pulse Resp B/P (MAP) Pulse Ox O2 Delivery O2 Flow Rate FiO2 01/02/19 04:00 74 01/02/19 04:00 98.1 78 20 165/78 (107) 91 01/02/19 00:00 70 01/02/19 00:00 98.4 72 20 154/74 (100) 94 01/01/19 21:27 97 Nasal Cannula 2.0 28 01/01/19 21:27 Nasal Cannula 2.0 28 01/01/19 21:27 88 20 Nasal Cannula 2.0 28 01/01/19 21:00 Nasal Cannula 2.0 01/01/19 20:46 86 115/76 01/01/19 20:00 99.3 86 20 115/76 (89) 94 01/01/19 19:00 85 01/01/19 16:00 85 01/01/19 16:00 97.8 92 18 150/94 (112) 95 01/01/19 12:00 98.2 85 20 153/86 (108) 97 01/01/19 12:00 84 01/01/19 09:48 75 144/78 01/01/19 09:48 75 01/01/19 09:10 98 Nasal Cannula 2.0 28 01/01/19 09:10 76 20 Nasal Cannula 2.0 28 01/01/19 09:10 Nasal Cannula 2.0 28 01/01/19 09:00 Nasal Cannula 2.0 01/01/19 08:00 75 01/01/19 08:00 98.0 75 20 154/87 (109) 92 Intake and Output 01/01/19 01/02/19 19:00 07:00 Intake Total 1135 ml 1162.2 ml Output Total 1000 ml 900 ml Balance 135 ml 262.2 ml Intake Oral 1010 ml 240 ml IV Total 125 ml 922.2 ml Output Urine Total 1000 ml 900 ml Laboratory Tests 01/02/19 06:21: White Blood Count 5.5, Red Blood Count 3.13L, Hemoglobin 8.9L, Hematocrit 27.1L , Mean Corpuscular Volume 87, Mean Corpuscular Hemoglobin 28.3, Mean Corpuscular Hemoglobin Concent 32.7, Red Cell Distribution Width 16.8H, Platelet Count 106L, Mean Platelet Volume 7.9, Neutrophils (%) (Auto) 69.0, Lymphocytes (%) (Auto) 21.2, Monocytes (%) (Auto) 8.4, Eosinophils (%) (Auto) 0.7, Basophils (%) (Auto) 0.7, Sodium Level 141, Potassium Level 3.6, Chloride Level 107, Carbon Dioxide Level 27, Anion Gap 7, Blood Urea Nitrogen 19H, Creatinine 0.8, Estimat Glomerular Filtration Rate , Glucose Level 110H, Calcium Level 8.4L, Phosphorus Level 1.7L, Magnesium Level 1.6L Height (Feet): 5 Height (Inches): 6.00 Weight (Pounds): 128 General Appearance: no apparent distress, alert EENT: normal ENT inspection Neck: normal alignment, supple Cardiovascular: normal rate, regular rhythm Respiratory/Chest: lungs clear, normal breath sounds Abdomen: non tender, soft Edema: no edema noted Arm (L), no edema noted Arm (R), no edema noted Leg (L), no edema noted Leg (R), no edema noted Pedal (L), no edema noted Pedal (R), no edema noted Generalized Sacha Jacome MD Jan 02, 2019 08:02
--- NOTE | 2019-01-02 08:42 | General Progress Note ---
Assessment/Plan Problem List: (1) Respiratory failure with hypoxia ICD Codes: J96.91 - Respiratory failure, unspecified with hypoxia SNOMED: 16916512804383485 Qualifiers: Qualified Codes: J96.01 - Acute respiratory failure with hypoxia (2) Atrial fibrillation with rapid ventricular response ICD Codes: I48.91 - Unspecified atrial fibrillation SNOMED: 569247421777428, 836841675 (3) Severe anemia ICD Codes: D64.9 - Anemia, unspecified SNOMED: 505085374 (4) ATN (acute tubular necrosis) ICD Codes: N17.0 - Acute kidney failure with tubular necrosis SNOMED: 15753096 (5) DM (diabetes mellitus) ICD Codes: E11.9 - Type 2 diabetes mellitus without complications SNOMED: 38697931 (6) Fever ICD Codes: R50.9 - Fever, unspecified SNOMED: 843498552 Status: stable, progressing Assessment/Plan vent transfuse prn cardio heme eval f/u cbc bmp am dc plan snf Subjective Constitutional: Reports: weakness Respiratory: Reports: shortness of breath Allergies: Coded Allergies: No Known Allergies (Unverified , 12/15/18) All Systems: reviewed and negative except above Subjective o2 nc sleepy Objective Last 24 Hour Vital Signs Date Time Temp Pulse Resp B/P (MAP) Pulse Ox O2 Delivery O2 Flow Rate FiO2 01/02/19 08:21 97 Nasal Cannula 2.0 28 01/02/19 08:21 Nasal Cannula 2.0 28 01/02/19 08:21 81 21 Nasal Cannula 2.0 28 01/02/19 04:00 74 01/02/19 04:00 98.1 78 20 165/78 (107) 91 01/02/19 00:00 70 01/02/19 00:00 98.4 72 20 154/74 (100) 94 01/01/19 21:27 97 Nasal Cannula 2.0 28 01/01/19 21:27 Nasal Cannula 2.0 28 01/01/19 21:27 88 20 Nasal Cannula 2.0 28 01/01/19 21:00 Nasal Cannula 2.0 01/01/19 20:46 86 115/76 01/01/19 20:00 99.3 86 20 115/76 (89) 94 01/01/19 19:00 85 01/01/19 16:00 85 01/01/19 16:00 97.8 92 18 150/94 (112) 95 01/01/19 12:00 98.2 85 20 153/86 (108) 97 01/01/19 12:00 84 01/01/19 09:48 75 144/78 01/01/19 09:48 75 01/01/19 09:10 98 Nasal Cannula 2.0 28 01/01/19 09:10 76 20 Nasal Cannula 2.0 28 01/01/19 09:10 Nasal Cannula 2.0 28 01/01/19 09:00 Nasal Cannula 2.0 Intake and Output 01/01/19 01/02/19 18:59 06:59 Intake Total 1010 ml 1272.2 ml Output Total 1000 ml 900 ml Balance 10 ml 372.2 ml Intake Oral 1010 ml 240 ml IV Total 1032.2 ml Output Urine Total 1000 ml 900 ml Laboratory Tests 01/02/19 06:21: White Blood Count 5.5, Red Blood Count 3.13L, Hemoglobin 8.9L, Hematocrit 27.1L , Mean Corpuscular Volume 87, Mean Corpuscular Hemoglobin 28.3, Mean Corpuscular Hemoglobin Concent 32.7, Red Cell Distribution Width 16.8H, Platelet Count 106L, Mean Platelet Volume 7.9, Neutrophils (%) (Auto) 69.0, Lymphocytes (%) (Auto) 21.2, Monocytes (%) (Auto) 8.4, Eosinophils (%) (Auto) 0.7, Basophils (%) (Auto) 0.7, Sodium Level 141, Potassium Level 3.6, Chloride Level 107, Carbon Dioxide Level 27, Anion Gap 7, Blood Urea Nitrogen 19H, Creatinine 0.8, Estimat Glomerular Filtration Rate , Glucose Level 110H, Calcium Level 8.4L, Phosphorus Level 1.7L, Magnesium Level 1.6L Height (Feet): 5 Height (Inches): 6.00 Weight (Pounds): 128 General Appearance: lethargic EENT: normal ENT inspection Neck: normal alignment Cardiovascular: normal peripheral pulses, normal rate, regular rhythm Respiratory/Chest: chest wall non-tender, decreased breath sounds Abdomen: normal bowel sounds, non tender, soft Extremities: normal inspection Edema: no edema noted Arm (L), no edema noted Arm (R), no edema noted Leg (L), no edema noted Leg (R), no edema noted Pedal (L), no edema noted Pedal (R), no edema noted Generalized Neurologic: motor weakness Skin: normal pigmentation, warm/dry Landry Green DO Jan 02, 2019 08:41
[2019-01-02] MEDS ORDERED: Potassium Phosphate 20 MM in NS 275 ML IV SCH (08:45)
[2019-01-02] MEDS: Amiodarone 200mg tab ORAL SCH (10:04)
[2019-01-02] MEDS: Docusate 100mg cap ORAL SCH ×2 (10:04→17:26)
[2019-01-02] MEDS: Bicalutamide 50mg tab ORAL SCH (10:04)
[2019-01-02] MEDS: Pantoprazole Inj IV SCH (10:04)
[2019-01-02] MEDS: Dronabinol 2.5mg Cap ORAL SCH ×3 (10:05→17:26)
[2019-01-02] MEDS: Digoxin 0.125mg tab ORAL SCH (10:16)
--- NOTE | 2019-01-02 11:05 | General Progress Note ---
Assessment/Plan Problem List: (1) DM (diabetes mellitus) ICD Codes: E11.9 - Type 2 diabetes mellitus without complications SNOMED: 83718727 (2) Elevated LFTs ICD Codes: R94.5 - Abnormal results of liver function studies SNOMED: 725614200, 903140015 (3) Dysphagia ICD Codes: R13.10 - Dysphagia, unspecified SNOMED: 38693267, 166217152 (4) Severe anemia ICD Codes: D64.9 - Anemia, unspecified SNOMED: 765540719 (5) Atrial fibrillation with rapid ventricular response ICD Codes: I48.91 - Unspecified atrial fibrillation SNOMED: 178747559281196, 471533207 (6) Respiratory failure with hypoxia ICD Codes: J96.91 - Respiratory failure, unspecified with hypoxia SNOMED: 22081199300864202 Qualifiers: Qualified Codes: J96.01 - Acute respiratory failure with hypoxia (7) Irreducible right inguinal hernia ICD Codes: K40.30 - Unilateral inguinal hernia, with obstruction, without gangrene, not specified as recurrent SNOMED: 976263883 (8) Diverticulosis ICD Codes: K57.90 - Diverticulosis of intestine, part unspecified, without perforation or abscess without bleeding SNOMED: 623600913 (9) Gastritis ICD Codes: K29.70 - Gastritis, unspecified, without bleeding SNOMED: 1601308 (10) Pancytopenia ICD Codes: D61.818 - Other pancytopenia SNOMED: 016083923 (11) Prostate cancer ICD Codes: C61 - Malignant neoplasm of prostate SNOMED: 050405450 (12) Pleural effusion ICD Codes: J90 - Pleural effusion, not elsewhere classified SNOMED: 61640335 (13) Thrombocytopenia ICD Codes: D69.6 - Thrombocytopenia, unspecified SNOMED: 102303140 Assessment/Plan s/p EGD SUMMARY OF FINDINGS: Severe gastritis versus portal hypertensive gastropathy versus ischemia, status post biopsy. Diet per ST, on Marinol Continue on PPI. Carafate. Follow up biopsy results and treat accordingly. prn transfusions Electrolyte correction follow labs fu BM biopsy bowel regimen Subjective ROS Limited/Unobtainable: Yes Allergies: Coded Allergies: No Known Allergies (Unverified , 12/15/18) Objective Last 24 Hour Vital Signs Date Time Temp Pulse Resp B/P (MAP) Pulse Ox O2 Delivery O2 Flow Rate FiO2 3/17/19 10:16 80 146/86 01/02/19 10:16 80 01/02/19 08:21 97 Nasal Cannula 2.0 28 01/02/19 08:21 Nasal Cannula 2.0 28 01/02/19 08:21 81 21 Nasal Cannula 2.0 28 01/02/19 08:02 89 01/02/19 08:00 97.0 80 22 146/80 (102) 98 01/02/19 04:00 74 01/02/19 04:00 98.1 78 20 165/78 (107) 91 01/02/19 00:00 70 01/02/19 00:00 98.4 72 20 154/74 (100) 94 01/01/19 21:27 97 Nasal Cannula 2.0 28 01/01/19 21:27 Nasal Cannula 2.0 28 01/01/19 21:27 88 20 Nasal Cannula 2.0 28 01/01/19 21:00 Nasal Cannula 2.0 01/01/19 20:46 86 115/76 01/01/19 20:00 99.3 86 20 115/76 (89) 94 01/01/19 19:00 85 01/01/19 16:00 85 01/01/19 16:00 97.8 92 18 150/94 (112) 95 01/01/19 12:00 98.2 85 20 153/86 (108) 97 01/01/19 12:00 84 Intake and Output 01/01/19 01/02/19 19:00 07:00 Intake Total 1135 ml 1162.2 ml Output Total 1000 ml 900 ml Balance 135 ml 262.2 ml Intake Oral 1010 ml 240 ml IV Total 125 ml 922.2 ml Output Urine Total 1000 ml 900 ml Laboratory Tests 01/02/19 06:21: White Blood Count 5.5, Red Blood Count 3.13L, Hemoglobin 8.9L, Hematocrit 27.1L , Mean Corpuscular Volume 87, Mean Corpuscular Hemoglobin 28.3, Mean Corpuscular Hemoglobin Concent 32.7, Red Cell Distribution Width 16.8H, Platelet Count 106L, Mean Platelet Volume 7.9, Neutrophils (%) (Auto) 69.0, Lymphocytes (%) (Auto) 21.2, Monocytes (%) (Auto) 8.4, Eosinophils (%) (Auto) 0.7, Basophils (%) (Auto) 0.7, Sodium Level 141, Potassium Level 3.6, Chloride Level 107, Carbon Dioxide Level 27, Anion Gap 7, Blood Urea Nitrogen 19H, Creatinine 0.8, Estimat Glomerular Filtration Rate , Glucose Level 110H, Calcium Level 8.4L, Phosphorus Level 1.7L, Magnesium Level 1.6L Height (Feet): 5 Height (Inches): 6.00 Weight (Pounds): 128 General Appearance: no apparent distress EENT: normal ENT inspection Neck: supple Cardiovascular: normal rate Respiratory/Chest: decreased breath sounds Abdomen: normal bowel sounds, non tender, soft Extremities: non-tender Mike Caruso MD Jan 02, 2019 11:05
[2019-01-02 12:00] VITALS: BP 149/48
[2019-01-02] MEDS ORDERED: Sodium Phosphate 30 MM in NS 275 ML IV ONE (12:45)
[2019-01-02 16:00] VITALS: BP 148/79
--- NOTE | 2019-01-02 16:54 | Pulmonology Progress Note ---
Assessment/Plan Problems: (1) Pleural effusion (2) Prostate cancer (3) Acute respiratory failure (4) Respiratory failure with hypoxia (5) Atrial fibrillation with rapid ventricular response (6) Thrombocytopenia (7) DM (diabetes mellitus) Assessment/Plan doing better transfuse prn PLT awaiting bone marrow biopsy results and cytology from pleural effusion titrate fio2 to sat of 92% continue monitoring heart rate Persistent bacteremia is concerning for malignancy. Subjective ROS Limited/Unobtainable: No Constitutional: Reports: no symptoms HEENT: Repors: no symptoms Allergies: Coded Allergies: No Known Allergies (Unverified , 12/15/18) Objective Last 24 Hour Vital Signs Date Time Temp Pulse Resp B/P (MAP) Pulse Ox O2 Delivery O2 Flow Rate FiO2 01/02/19 16:00 98.6 67 20 148/79 (102) 99 01/02/19 14:10 77 01/02/19 12:00 82 01/02/19 12:00 97.5 77 22 149/48 (81) 98 01/02/19 10:16 80 146/86 01/02/19 10:16 80 01/02/19 09:00 Nasal Cannula 2.0 Nasal Cannula 2.0 Nasal Cannula 2.0 01/02/19 08:21 97 Nasal Cannula 2.0 28 01/02/19 08:21 Nasal Cannula 2.0 28 01/02/19 08:21 81 21 Nasal Cannula 2.0 28 01/02/19 08:02 89 01/02/19 08:00 97.0 80 22 146/80 (102) 98 01/02/19 04:00 74 01/02/19 04:00 98.1 78 20 165/78 (107) 91 01/02/19 00:00 70 01/02/19 00:00 98.4 72 20 154/74 (100) 94 01/01/19 21:27 97 Nasal Cannula 2.0 28 01/01/19 21:27 Nasal Cannula 2.0 28 01/01/19 21:27 88 20 Nasal Cannula 2.0 28 01/01/19 21:00 Nasal Cannula 2.0 01/01/19 20:46 86 115/76 01/01/19 20:00 99.3 86 20 115/76 (89) 94 01/01/19 19:00 85 Intake and Output 01/01/19 01/02/19 19:00 07:00 Intake Total 1135 ml 1162.2 ml Output Total 1000 ml 900 ml Balance 135 ml 262.2 ml Intake Oral 1010 ml 240 ml IV Total 125 ml 922.2 ml Output Urine Total 1000 ml 900 ml Objective General Appearance: cachetic Respiratory/Chest: chest wall non-tender, lungs clear Cardiovascular: normal peripheral pulses, normal rate Abdomen: normal bowel sounds, soft, non tender Genitourinary: normal external genitalia Extremities: no clubbing Skin: no lesions Laboratory Tests 01/02/19 06:21: White Blood Count 5.5, Red Blood Count 3.13L, Hemoglobin 8.9L, Hematocrit 27.1L , Mean Corpuscular Volume 87, Mean Corpuscular Hemoglobin 28.3, Mean Corpuscular Hemoglobin Concent 32.7, Red Cell Distribution Width 16.8H, Platelet Count 106L, Mean Platelet Volume 7.9, Neutrophils (%) (Auto) 69.0, Lymphocytes (%) (Auto) 21.2, Monocytes (%) (Auto) 8.4, Eosinophils (%) (Auto) 0.7, Basophils (%) (Auto) 0.7, Sodium Level 141, Potassium Level 3.6, Chloride Level 107, Carbon Dioxide Level 27, Anion Gap 7, Blood Urea Nitrogen 19H, Creatinine 0.8, Estimat Glomerular Filtration Rate , Glucose Level 110H, Calcium Level 8.4L, Phosphorus Level 1.7L, Magnesium Level 1.6L Current Medications Medications (Trade) Dose Ordered Sig/Brock Route PRN Reason Start Time Stop Time Status Last Admin Dose Admin Acetaminophen (Tylenol) 650 mg Q4H PRN ORAL fever 12/28/18 23:15 01/15/19 07:14 Albuterol/ Ipratropium (Albuterol/ Ipratropium) 3 ml Q4H PRN HHN Shortness of Breath 12/30/18 19:45 01/04/19 19:44 Amikacin Protocol (Amikacin pharmacy to dose) 1 ea DAILY PRN MISC Per rx protocol 12/31/18 16:00 01/30/19 15:59 Amikacin Sulfate 800 mg/Sodium Chloride 113.2 ml @ 226.4 mls/ hr Q36H IV 12/31/18 17:00 01/07/19 16:59 01/02/19 06:23 Amiodarone HCl (Cordarone) 200 mg DAILY ORAL 12/29/18 09:00 01/27/19 10:14 01/02/19 10:04 Aztreonam 1 gm/ Dextrose 55 ml @ 110 mls/hr Q8HR@0200,1000,1800 IVPB 01/01/19 10:00 01/08/19 09:59 01/02/19 11:30 Bicalutamide (Casodex) 50 mg DAILY ORAL 01/01/19 09:00 01/06/19 08:59 01/02/19 10:04 Ceftazidime/ Avibactam 2.5 gm/ Sodium Chloride 110 ml @ 55 mls/hr Q8HR@0400,1200,2000 IVPB 01/01/19 12:00 01/08/19 11:59 01/02/19 15:13 Daptomycin 300 mg/ Sodium Chloride 55 ml @ 100 mls/hr Q24H IV 12/30/18 14:00 01/06/19 13:59 01/01/19 14:46 Dextrose (Dextrose 50%) 25 ml Q30M PRN IV Hypoglycemia 12/28/18 22:45 01/15/19 07:14 Dextrose (Dextrose 50%) 50 ml Q30M PRN IV Hypoglycemia 12/30/18 19:45 01/29/19 19:44 Digoxin (Lanoxin) 0.125 mg DAILY ORAL 12/29/18 09:00 01/18/19 08:59 01/02/19 10:16 Diltiazem HCl (Cardizem) 10 mg EVERY HOUR PRN IV heart rate more than 120 BPM 12/28/18 23:00 01/26/19 11:14 Docusate Sodium (Colace) 100 mg TWICE A DAY ORAL 12/31/18 18:00 01/30/19 17:59 01/02/19 10:04 Dronabinol (Marinol) 2.5 mg TID ORAL 12/29/18 09:00 01/27/19 12:59 01/02/19 14:01 Iopamidol (Isovue-300 100ml) 100 ml NOW PRN INJ Radiology Procedure 12/31/18 14:15 Metoprolol Tartrate (Lopressor) 100 mg EVERY 12 HOURS NG 12/29/18 09:00 01/17/19 08:59 01/02/19 10:16 Pantoprazole (Protonix) 40 mg DAILY IV 12/29/18 09:00 01/17/19 08:59 01/02/19 10:04 Polyethylene Glycol (Miralax) 17 gm BEDTIME ORAL 12/31/18 21:00 01/30/19 20:59 01/01/19 20:46 Sodium Chloride 1,000 ml @ 125 mls/hr Q8H IV 12/31/18 16:45 01/30/19 16:44 01/02/19 11:29 Bryan Emerson MD Jan 02, 2019 16:54
[2019-01-02] MEDS: DAPTOmycin 300 MG in NS 55 ML IV SCH (17:25)
--- NOTE | 2019-01-02 19:19 | NUR ---
HAND-OFF: Report given to SARAI Reed.
[2019-01-02] MEDS ORDERED: Tubing IV Secondary IV ONE ×2 (19:27→20:09)
--- NOTE | 2019-01-02 19:27 | NUR ---
NURSE NOTES: Received report from SARAI Buchanan. Patient is awake lying semi-lipscomb's; resting comfortably. No signs of acute distress noted; denies pain at this time. On 2L nasal cannula. AOx3; able to make needs known. Checked IV site, lines, and IV rate; patent and running. No erythema, bleeding, or infiltration noted. Bed at lowest position, brakes on, siderails up x3. Call light within reach. Will continue to monitor.
[2019-01-02 20:00] VITALS: BP 160/75
[2019-01-02] MEDS ORDERED: Tubing Blood Filter IV ONE (20:09)
[2019-01-02] MEDS ORDERED: NS 275ml ONE (20:09)
[2019-01-02] MEDS: Miralax 17gm pkt ORAL SCH (20:28)
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
[2019-01-03] VITALS: BP 170/75
--- NOTE | 2019-01-03 00:28 | NUR ---
NURSE NOTES: Called Dr. Emerson regarding patient's bp of 170/75, but has no PRN antihypertensives. Additionally informed him that patient is on NS @ 125 mls/hr. Awaiting callback.
[2019-01-03] MEDS: Aztreonam 1gm/D5W 55ml IVPB SCH ×6 (02:22→17:33)
--- NOTE | 2019-01-03 03:44 | NUR ---
NURSE NOTES: Patient is awake lying high-lipscomb's; resting comfortably. On 2L nasal cannula. No signs of acute distress noted; denies pain at this time.
[2019-01-03 04:00] VITALS: BP 173/91
[2019-01-03] MEDS: SODIUM CHLORIDE IVPB SCH ×6 (05:08→20:11)
[2019-01-03] MEDS: CEFTAZIDIME IVPB SCH ×6 (05:08→20:11)
[2019-01-03] MEDS: AVIBACTAM IVPB SCH ×6 (05:08→20:11)
--- NOTE | 2019-01-03 07:31 | NUR ---
HAND-OFF: Report given to SARAI Brown. Patient is awake lying semi-lipscomb's; resting comfortably. On 2L nasal cannula. In stable condition.
[2019-01-03 07:33] LABS: ANION GAP 6 mmol/L (5-15); BLOOD UREA NITROGEN 16 mg/dL (7-18); CALCIUM 8.1 MG/DL (8.5-10.1); CARBON DIOXIDE 28 MMOL/L (21-32); CHLORIDE 107 MMOL/L (98-107); CREATININE 0.9 MG/DL (0.55-1.30); POTASSIUM 3.6 MMOL/L (3.5-5.1); SODIUM 141 MMOL/L (136-145)
[2019-01-03 07:37] LABS: BASOPHILS % (AUTO) 0.6 % (0.0-2.0); EOSINOPHILS % (AUTO) 0.5 % (0.0-3.0); HEMATOCRIT 27.8 % (42.0-52.0); HEMOGLOBIN 8.9 G/DL (14.2-18.0); LYMPHOCYTES % (AUTO) 15.8 % (20.0-45.0); MEAN CORPUSCULAR VOLUME 88 FL (80-99); MONOCYTES % (AUTO) 6.4 % (1.0-10.0); NEUTROPHILS % (AUTO) 76.6 % (45.0-75.0); PLATELET COUNT 107 K/UL (150-450); RED BLOOD COUNT 3.15 M/UL (4.70-6.10); RED CELL DISTRIBUTION WIDTH 17.1 % (11.6-14.8); WHITE BLOOD COUNT 7.4 K/UL (4.8-10.8)
--- NOTE | 2019-01-03 07:55 | NUR ---
NURSE NOTES: Received new order from Dr. Emerson for Clonidine 0.1 mg PO. Noted and carried out.
[2019-01-03 08:00] VITALS: BP 139/79
--- NOTE | 2019-01-03 08:06 | Nephrology Progress Note ---
Assessment/Plan Assessment/Plan A/P 1) E- ABN- hypophosphatemia/Mg/K+ ( on Amikacin) - all being replaced prn. AM labs pending - refeeding syndrome 2) Afib RVR- per cardiology 3) Sepsis- on Abx recurrent sepsis-multifactorial 2ry to bacteremia, PNA and UTI Persistent CRE/fernandez resistant Bacteremia- ? from UTI (however K pna in urine fairly sensitive; no presence of central lines currently)- r/o abscess - multiAbx, nephrotoxic per ID mgmt - Cr stable and aggressive IVFs hydration. 4) Anemia- stable Subjective Date patient seen: Jan 03, 2019 Time patient seen: 08:05 ROS Limited/Unobtainable: No Allergies: Coded Allergies: No Known Allergies (Unverified , 12/15/18) Subjective Patient continues to improve and feel better Objective Last 24 Hour Vital Signs Date Time Temp Pulse Resp B/P (MAP) Pulse Ox O2 Delivery O2 Flow Rate FiO2 01/03/19 06:56 Nasal Cannula 3.0 32 01/03/19 06:56 70 20 Nasal Cannula 3.0 32 01/03/19 06:56 97 Nasal Cannula 3.0 32 01/03/19 04:00 69 01/03/19 04:00 97.7 76 18 173/91 (118) 93 01/03/19 00:00 97.2 68 18 170/75 (106) 91 01/03/19 00:00 64 01/02/19 21:40 95 Nasal Cannula 3.0 32 01/02/19 21:40 74 22 Nasal Cannula 3.0 32 01/02/19 21:40 Nasal Cannula 2.0 28 01/02/19 21:00 Nasal Cannula 2.0 01/02/19 20:57 69 160/75 01/02/19 20:00 98.5 69 18 160/75 (103) 91 01/02/19 20:00 75 01/02/19 16:00 98.6 67 20 148/79 (102) 99 01/02/19 14:10 77 01/02/19 12:00 82 01/02/19 12:00 97.5 77 22 149/48 (81) 98 01/02/19 10:16 80 146/86 01/02/19 10:16 80 01/02/19 09:00 Nasal Cannula 2.0 Nasal Cannula 2.0 Nasal Cannula 2.0 01/02/19 08:21 97 Nasal Cannula 2.0 28 01/02/19 08:21 Nasal Cannula 2.0 28 01/02/19 08:21 81 21 Nasal Cannula 2.0 28 Intake and Output 01/02/19 01/03/19 19:00 07:00 Intake Total 717 ml 1750 ml Output Total 100 ml Balance 617 ml 1750 ml Intake Oral 600 ml 120 ml IV Total 117 ml 1630 ml Output Urine Total 100 ml # Voids 3 2 # Bowel Movements 1 5 Laboratory Tests 01/03/19 05:45: White Blood Count 7.4, Red Blood Count 3.15L, Hemoglobin 8.9L, Hematocrit 27.8L , Mean Corpuscular Volume 88, Mean Corpuscular Hemoglobin 28.4, Mean Corpuscular Hemoglobin Concent 32.2, Red Cell Distribution Width 17.1H, Platelet Count 107L, Mean Platelet Volume 8.2, Neutrophils (%) (Auto) 76.6H, Lymphocytes (%) (Auto) 15.8L, Monocytes (%) (Auto) 6.4, Eosinophils (%) (Auto) 0.5, Basophils (%) (Auto) 0.6, Erythrocyte Sedimentation Rate [Pending], Sodium Level 141, Potassium Level 3.6, Chloride Level 107, Carbon Dioxide Level 28, Anion Gap 6, Blood Urea Nitrogen 16, Creatinine 0.9, Estimat Glomerular Filtration Rate , Glucose Level 110H, Calcium Level 8.1L, Phosphorus Level [ Pending], Magnesium Level [Pending], C-Reactive Protein, Quantitative [Pending] Height (Feet): 5 Height (Inches): 6.00 Weight (Pounds): 127 General Appearance: no apparent distress, alert EENT: normal ENT inspection Neck: normal alignment, supple Cardiovascular: regular rhythm Respiratory/Chest: lungs clear, normal breath sounds Abdomen: non tender, soft Edema: no edema noted Arm (L), no edema noted Arm (R), no edema noted Leg (L), no edema noted Leg (R), no edema noted Pedal (L), no edema noted Pedal (R), no edema noted Generalized Sacha Jacome MD Jan 03, 2019 08:06
[2019-01-03 08:24] LABS: PHOSPHORUS 2.3 MG/DL (2.5-4.9)
[2019-01-03] MEDS: Amiodarone 200mg tab ORAL SCH (09:39)
[2019-01-03] MEDS: Docusate 100mg cap ORAL SCH ×2 (09:39→17:30)
[2019-01-03] MEDS: Bicalutamide 50mg tab ORAL SCH (09:39)
[2019-01-03] MEDS: Dronabinol 2.5mg Cap ORAL SCH ×3 (09:39→17:30)
[2019-01-03] MEDS: Digoxin 0.125mg tab ORAL SCH (09:40)
[2019-01-03] MEDS: Pantoprazole Inj IV SCH (09:40)
--- NOTE | 2019-01-03 11:03 | GI Progress Note ---
Assessment/Plan Problems: (1) Severe anemia ICD Codes: D64.9 - Anemia, unspecified SNOMED: 430357584 (2) Anemia ICD Codes: D64.9 - Anemia, unspecified SNOMED: 331729215 (3) Elevated LFTs ICD Codes: R94.5 - Abnormal results of liver function studies SNOMED: 271297437, 532380331 (4) Dysphagia ICD Codes: R13.10 - Dysphagia, unspecified SNOMED: 80084558, 339978655 Status: progressing Status Narrative Discussed with Dr. Caruso Assessment/Plan s/p EGD SUMMARY OF FINDINGS: Severe gastritis versus portal hypertensive gastropathy versus ischemia, status post biopsy. Diet per ST on Marinol, push PO Continue on PPI. Carafate. Follow up biopsy results and treat accordingly. prn transfusions Electrolyte correction follow labs fu BM biopsy bowel regimen PT evaluation The patient was seen and examined at bedside and all new and available data was reviewed in the patients chart. I agree with the above findings, impression and plan. (Patient seen earlier today. Signature stamp does not reflect patient encounter time.). - Mike Caruso MD Subjective Subjective Denies any abdominal pain Poor appetite States he dislikes the food here feels overall better States that the Marinol is helping Objective Last 24 Hour Vital Signs Date Time Temp Pulse Resp B/P (MAP) Pulse Ox O2 Delivery O2 Flow Rate FiO2 01/03/19 09:40 70 01/03/19 09:39 70 173/91 01/03/19 06:56 Nasal Cannula 3.0 32 01/03/19 06:56 70 20 Nasal Cannula 3.0 32 01/03/19 06:56 97 Nasal Cannula 3.0 32 01/03/19 04:00 69 01/03/19 04:00 97.7 76 18 173/91 (118) 93 01/03/19 00:00 97.2 68 18 170/75 (106) 91 01/03/19 00:00 64 01/02/19 21:40 95 Nasal Cannula 3.0 32 01/02/19 21:40 74 22 Nasal Cannula 3.0 32 01/02/19 21:40 Nasal Cannula 2.0 28 01/02/19 21:00 Nasal Cannula 2.0 01/02/19 20:57 69 160/75 01/02/19 20:00 98.5 69 18 160/75 (103) 91 01/02/19 20:00 75 01/02/19 16:00 98.6 67 20 148/79 (102) 99 01/02/19 14:10 77 01/02/19 12:00 82 01/02/19 12:00 97.5 77 22 149/48 (81) 98 Intake and Output 01/02/19 01/03/19 19:00 07:00 Intake Total 717 ml 1750 ml Output Total 100 ml Balance 617 ml 1750 ml Intake Oral 600 ml 120 ml IV Total 117 ml 1630 ml Output Urine Total 100 ml # Voids 3 2 # Bowel Movements 1 5 Laboratory Tests Test 01/03/19 05:45 White Blood Count 7.4 K/UL (4.8-10.8) Red Blood Count 3.15 M/UL (4.70-6.10) L Hemoglobin 8.9 G/DL (14.2-18.0) L Hematocrit 27.8 % (42.0-52.0) L Mean Corpuscular Volume 88 FL (80-99) Mean Corpuscular Hemoglobin 28.4 PG (27.0-31.0) Mean Corpuscular Hemoglobin Concent 32.2 G/DL (32.0-36.0) Red Cell Distribution Width 17.1 % (11.6-14.8) H Platelet Count 107 K/UL (150-450) L Mean Platelet Volume 8.2 FL (6.5-10.1) Neutrophils (%) (Auto) 76.6 % (45.0-75.0) H Lymphocytes (%) (Auto) 15.8 % (20.0-45.0) L Monocytes (%) (Auto) 6.4 % (1.0-10.0) Eosinophils (%) (Auto) 0.5 % (0.0-3.0) Basophils (%) (Auto) 0.6 % (0.0-2.0) Erythrocyte Sedimentation Rate 123 MM/HR (0-20) H Sodium Level 141 MMOL/L (136-145) Potassium Level 3.6 MMOL/L (3.5-5.1) Chloride Level 107 MMOL/L (98-107) Carbon Dioxide Level 28 MMOL/L (21-32) Anion Gap 6 mmol/L (5-15) Blood Urea Nitrogen 16 mg/dL (7-18) Creatinine 0.9 MG/DL (0.55-1.30) Estimat Glomerular Filtration Rate mL/min (>60) Glucose Level 110 MG/DL (74-106) H Calcium Level 8.1 MG/DL (8.5-10.1) L Phosphorus Level 2.3 MG/DL (2.5-4.9) L Magnesium Level 2.0 MG/DL (1.8-2.4) C-Reactive Protein, Quantitative 12.3 mg/dL (0.00-0.90) H Height (Feet): 5 Height (Inches): 6.00 Weight (Pounds): 127 General Appearance: WD/WN, no apparent distress, alert, thin Cardiovascular: normal rate Respiratory/Chest: normal breath sounds, no respiratory distress Abdominal Exam: normal bowel sounds, non tender, soft Extremities: normal range of motion, non-tender Elke Jacobson NP Jan 03, 2019 11:03
--- NOTE | 2019-01-03 11:45 | Pulmonology Progress Note ---
Assessment/Plan Problems: (1) Pleural effusion (2) Prostate cancer (3) Acute respiratory failure (4) Respiratory failure with hypoxia (5) Atrial fibrillation with rapid ventricular response (6) Thrombocytopenia (7) DM (diabetes mellitus) Assessment/Plan doing better transfuse prn PLT back to sinus awaiting bone marrow biopsy results and cytology from pleural effusion, the phone number for pathology keeps ringing. Their voice mail is full titrate fio2 to sat of 92% continue monitoring heart rate Persistent bacteremia is concerning for malignancy. med/surg Subjective ROS Limited/Unobtainable: No Constitutional: Reports: no symptoms HEENT: Repors: no symptoms Respiratory: Reports: no symptoms Allergies: Coded Allergies: No Known Allergies (Unverified , 12/15/18) Objective Last 24 Hour Vital Signs Date Time Temp Pulse Resp B/P (MAP) Pulse Ox O2 Delivery O2 Flow Rate FiO2 01/03/19 09:40 70 01/03/19 09:39 70 173/91 01/03/19 06:56 Nasal Cannula 3.0 32 01/03/19 06:56 70 20 Nasal Cannula 3.0 32 01/03/19 06:56 97 Nasal Cannula 3.0 32 01/03/19 04:00 69 01/03/19 04:00 97.7 76 18 173/91 (118) 93 01/03/19 00:00 97.2 68 18 170/75 (106) 91 01/03/19 00:00 64 01/02/19 21:40 95 Nasal Cannula 3.0 32 01/02/19 21:40 74 22 Nasal Cannula 3.0 32 01/02/19 21:40 Nasal Cannula 2.0 28 01/02/19 21:00 Nasal Cannula 2.0 01/02/19 20:57 69 160/75 01/02/19 20:00 98.5 69 18 160/75 (103) 91 01/02/19 20:00 75 01/02/19 16:00 98.6 67 20 148/79 (102) 99 01/02/19 14:10 77 01/02/19 12:00 82 01/02/19 12:00 97.5 77 22 149/48 (81) 98 Intake and Output 01/02/19 01/03/19 19:00 07:00 Intake Total 717 ml 1750 ml Output Total 100 ml Balance 617 ml 1750 ml Intake Oral 600 ml 120 ml IV Total 117 ml 1630 ml Output Urine Total 100 ml # Voids 3 2 # Bowel Movements 1 5 Objective General Appearance: cachetic Respiratory/Chest: chest wall non-tender, lungs clear Cardiovascular: normal peripheral pulses, normal rate Abdomen: normal bowel sounds, soft, non tender Genitourinary: normal external genitalia Extremities: no clubbing Skin: no lesions Laboratory Tests 01/03/19 05:45: White Blood Count 7.4, Red Blood Count 3.15L, Hemoglobin 8.9L, Hematocrit 27.8L , Mean Corpuscular Volume 88, Mean Corpuscular Hemoglobin 28.4, Mean Corpuscular Hemoglobin Concent 32.2, Red Cell Distribution Width 17.1H, Platelet Count 107L, Mean Platelet Volume 8.2, Neutrophils (%) (Auto) 76.6H, Lymphocytes (%) (Auto) 15.8L, Monocytes (%) (Auto) 6.4, Eosinophils (%) (Auto) 0.5, Basophils (%) (Auto) 0.6, Erythrocyte Sedimentation Rate 123H, Sodium Level 141, Potassium Level 3.6, Chloride Level 107, Carbon Dioxide Level 28, Anion Gap 6, Blood Urea Nitrogen 16, Creatinine 0.9, Estimat Glomerular Filtration Rate , Glucose Level 110H, Calcium Level 8.1L, Phosphorus Level 2.3L , Magnesium Level 2.0, C-Reactive Protein, Quantitative 12.3H Current Medications Medications (Trade) Dose Ordered Sig/Brock Route PRN Reason Start Time Stop Time Status Last Admin Dose Admin Acetaminophen (Tylenol) 650 mg Q4H PRN ORAL fever 12/28/18 23:15 01/15/19 07:14 Albuterol/ Ipratropium (Albuterol/ Ipratropium) 3 ml Q4H PRN HHN Shortness of Breath 12/30/18 19:45 01/04/19 19:44 Amikacin Protocol (Amikacin pharmacy to dose) 1 ea DAILY PRN MISC Per rx protocol 12/31/18 16:00 01/30/19 15:59 Amikacin Sulfate 800 mg/Sodium Chloride 113.2 ml @ 226.4 mls/ hr Q36H IV 12/31/18 17:00 01/07/19 16:59 01/02/19 06:23 Amiodarone HCl (Cordarone) 200 mg DAILY ORAL 12/29/18 09:00 01/27/19 10:14 01/03/19 09:39 Aztreonam 1 gm/ Dextrose 55 ml @ 110 mls/hr Q8HR@0200,1000,1800 IVPB 01/01/19 10:00 01/08/19 09:59 01/03/19 09:46 Bicalutamide (Casodex) 50 mg DAILY ORAL 01/01/19 09:00 01/06/19 08:59 01/03/19 09:39 Ceftazidime/ Avibactam 2.5 gm/ Sodium Chloride 110 ml @ 55 mls/hr Q8HR@0400,1200,2000 IVPB 01/01/19 12:00 01/08/19 11:59 01/03/19 05:08 Clonidine HCl (Catapres Tab) 0.1 mg Q6H PRN ORAL For High Blood Pressure 01/03/19 08:00 02/02/19 07:59 Daptomycin 300 mg/ Sodium Chloride 55 ml @ 100 mls/hr Q24H IV 12/30/18 14:00 01/06/19 13:59 01/02/19 17:25 Dextrose (Dextrose 50%) 25 ml Q30M PRN IV Hypoglycemia 12/28/18 22:45 01/15/19 07:14 Dextrose (Dextrose 50%) 50 ml Q30M PRN IV Hypoglycemia 12/30/18 19:45 01/29/19 19:44 Digoxin (Lanoxin) 0.125 mg DAILY ORAL 12/29/18 09:00 01/18/19 08:59 01/03/19 09:40 Diltiazem HCl (Cardizem) 10 mg EVERY HOUR PRN IV heart rate more than 120 BPM 12/28/18 23:00 01/26/19 11:14 Docusate Sodium (Colace) 100 mg TWICE A DAY ORAL 12/31/18 18:00 01/30/19 17:59 01/03/19 09:39 Dronabinol (Marinol) 2.5 mg TID ORAL 12/29/18 09:00 01/27/19 12:59 01/03/19 09:39 Iopamidol (Isovue-300 100ml) 100 ml NOW PRN INJ Radiology Procedure 12/31/18 14:15 Metoprolol Tartrate (Lopressor) 100 mg EVERY 12 HOURS NG 12/29/18 09:00 01/17/19 08:59 01/03/19 09:39 Pantoprazole (Protonix) 40 mg DAILY IV 12/29/18 09:00 01/17/19 08:59 01/03/19 09:40 Polyethylene Glycol (Miralax) 17 gm BEDTIME ORAL 12/31/18 21:00 01/30/19 20:59 01/01/19 20:46 Sodium Chloride 1,000 ml @ 125 mls/hr Q8H IV 12/31/18 16:45 01/30/19 16:44 01/03/19 08:45 Bryan Emerson MD Jan 03, 2019 11:45
[2019-01-03 12:00] VITALS: BP 141/80
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
--- NOTE | 2019-01-03 13:25 | Cardiac Electrophysiology PN ---
Assessment/Plan Assessment/Plan 1. Paroxysmal atrial fibrillation with rapid ventricular response. Precipitated by profound anemia with hemoglobin of 3.5. EF 45% with moderate to severe pulmonary hypertension. Converted to SR on 12/23/18 but back in atrial fib Off anticoagulations for gastrointestinal bleed and hemoglobin 3.5. On Amiodarone 200 mg po daily, Dig 0.125 mg po daily and Lopressor 100 bid 2. Troponin leak due to atrial fib with RVR 3. Hypertension. On Metoprolol 4. Pancytopenia with Profound anemia, hemoglobin of 3.5 and platelet 35. S/P EGD by Dr Caruso 12/22/18 gastritis . S/P PRBC S/p BM Biopsy 12/31/[address] Gooden Bone scan pending 5. S/P Respiratory failure 6. Mild azotemia, BUN of 20, creatinine 1.0. 7. Klebsiella PNA. Pleural effusion, s/p thoracentesis 8. Positive blood cx Carbapenem resistant Klebsilella. Repeat Echo to R/O vegetation pending On Abx per Dr Cierra GARCIA RN Subjective Subjective In atrial fib with controlled rate. getting Bone scan today Objective Last 24 Hour Vital Signs Date Time Temp Pulse Resp B/P (MAP) Pulse Ox O2 Delivery O2 Flow Rate FiO2 01/03/19 09:40 70 01/03/19 09:39 70 173/91 01/03/19 06:56 Nasal Cannula 3.0 32 01/03/19 06:56 70 20 Nasal Cannula 3.0 32 01/03/19 06:56 97 Nasal Cannula 3.0 32 01/03/19 04:00 69 01/03/19 04:00 97.7 76 18 173/91 (118) 93 01/03/19 00:00 97.2 68 18 170/75 (106) 91 01/03/19 00:00 64 01/02/19 21:40 95 Nasal Cannula 3.0 32 01/02/19 21:40 74 22 Nasal Cannula 3.0 32 01/02/19 21:40 Nasal Cannula 2.0 28 01/02/19 21:00 Nasal Cannula 2.0 01/02/19 20:57 69 160/75 01/02/19 20:00 98.5 69 18 160/75 (103) 91 01/02/19 20:00 75 01/02/19 16:00 98.6 67 20 148/79 (102) 99 01/02/19 14:10 77 Intake and Output 01/02/19 01/03/19 19:00 07:00 Intake Total 717 ml 1750 ml Output Total 100 ml Balance 617 ml 1750 ml Intake Oral 600 ml 120 ml IV Total 117 ml 1630 ml Output Urine Total 100 ml # Voids 3 2 # Bowel Movements 1 5 Laboratory Tests Test 01/03/19 05:45 01/03/19 13:05 White Blood Count 7.4 K/UL (4.8-10.8) Red Blood Count 3.15 M/UL (4.70-6.10) L Hemoglobin 8.9 G/DL (14.2-18.0) L Hematocrit 27.8 % (42.0-52.0) L Mean Corpuscular Volume 88 FL (80-99) Mean Corpuscular Hemoglobin 28.4 PG (27.0-31.0) Mean Corpuscular Hemoglobin Concent 32.2 G/DL (32.0-36.0) Red Cell Distribution Width 17.1 % (11.6-14.8) H Platelet Count 107 K/UL (150-450) L Mean Platelet Volume 8.2 FL (6.5-10.1) Neutrophils (%) (Auto) 76.6 % (45.0-75.0) H Lymphocytes (%) (Auto) 15.8 % (20.0-45.0) L Monocytes (%) (Auto) 6.4 % (1.0-10.0) Eosinophils (%) (Auto) 0.5 % (0.0-3.0) Basophils (%) (Auto) 0.6 % (0.0-2.0) Erythrocyte Sedimentation Rate 123 MM/HR (0-20) H Sodium Level 141 MMOL/L (136-145) Potassium Level 3.6 MMOL/L (3.5-5.1) Chloride Level 107 MMOL/L (98-107) Carbon Dioxide Level 28 MMOL/L (21-32) Anion Gap 6 mmol/L (5-15) Blood Urea Nitrogen 16 mg/dL (7-18) Creatinine 0.9 MG/DL (0.55-1.30) Estimat Glomerular Filtration Rate mL/min (>60) Glucose Level 110 MG/DL (74-106) H Calcium Level 8.1 MG/DL (8.5-10.1) L Phosphorus Level 2.3 MG/DL (2.5-4.9) L Magnesium Level 2.0 MG/DL (1.8-2.4) C-Reactive Protein, Quantitative 12.3 mg/dL (0.00-0.90) H Miscellaneous Test 2 Pending Objective HEAD AND NECK: No JVD LUNGS: Coarse rhonchi. CARDIOVASCULAR:Regular S1 and S2 with no gallop or murmur. ABDOMEN: Soft. Swollen scrotum EXTREMITIES: No edema. Shantanu Mcmillan MD Jan 03, 2019 13:25
--- NOTE | 2019-01-03 14:35 | NUR ---
RD ASSESSMENT & RECOMMENDATIONS SEE CARE ACTIVITY FOR COMPLETE ASSESSMENT DAILY ESTIMATED NEEDS: Needs based on underweight 52kg 30-35 kcals/kg 5115-9982 total kcals 1-1.5 g protein/kg 52-78 g total protein 25-30 mL/kg 9936-2744 total fluid mLs NUTRITION DIAGNOSIS: 1) Swallowing difficulty r/t respiratory status as evidenced by pt now now extubated, seen by PAPIER MACHE' MOLDER w/ rec for pureed moist, NTL, variable PO at this time. 2) Increased kcal and protein needs r/t underweight status, wound healing as evidenced by pt is 74% of [place] Body Weight, underweight per guidelines, presents w/ generalized moderate to severe wasting, pt now w/ new stage 2 wound @ sacrum. CURRENT DIET: CCHO MED, Pureed Moist, NTL + Ensure Enlive TID w/ meals PO DIET RECOMMENDATIONS: Liberalized REGULAR/ texture per PAPIER MACHE' MOLDER + Ensure Enlive TID w/ meals ADDITIONAL RECOMMENDATIONS: 1) Obtain calibrated bed scale wts, weekly wts -> Pt is underweight 2) Continue w/ Ensure Enlive TID w/ meals (350kcal/20g prot per bottle) 3) Wound healing: add MVI x 1, Vit C 500mg QD : Misael 1pkt BID 4) PAPIER MACHE' MOL[facility] eval for possible texture upgrade- per pt dislikes pureed txture 5) Monitor lytes daily, replete as needed (low phos) 6) Monitor % intake of meals and HPN in EMR - not recorded since 12/27
--- NOTE | 2019-01-03 14:51 | General Progress Note ---
Assessment/Plan Problem List: (1) Respiratory failure with hypoxia ICD Codes: J96.91 - Respiratory failure, unspecified with hypoxia SNOMED: 03722387874779715 Qualifiers: Qualified Codes: J96.01 - Acute respiratory failure with hypoxia (2) Atrial fibrillation with rapid ventricular response ICD Codes: I48.91 - Unspecified atrial fibrillation SNOMED: 397643391953028, 443645803 (3) Severe anemia ICD Codes: D64.9 - Anemia, unspecified SNOMED: 522500754 (4) ATN (acute tubular necrosis) ICD Codes: N17.0 - Acute kidney failure with tubular necrosis SNOMED: 65234577 (5) DM (diabetes mellitus) ICD Codes: E11.9 - Type 2 diabetes mellitus without complications SNOMED: 82054330 (6) Fever ICD Codes: R50.9 - Fever, unspecified SNOMED: 019412370 Status: unchanged Assessment/Plan vent transfuse prn cardio heme eval f/u cbc bmp am dc plan snf Subjective Constitutional: Reports: weakness Respiratory: Reports: shortness of breath Allergies: Coded Allergies: No Known Allergies (Unverified , 12/15/18) All Systems: reviewed and negative except above Subjective o2 nc sleepy Objective Last 24 Hour Vital Signs Date Time Temp Pulse Resp B/P (MAP) Pulse Ox O2 Delivery O2 Flow Rate FiO2 01/03/19 09:40 70 01/03/19 09:39 70 173/91 01/03/19 06:56 Nasal Cannula 3.0 32 01/03/19 06:56 70 20 Nasal Cannula 3.0 32 01/03/19 06:56 97 Nasal Cannula 3.0 32 01/03/19 04:00 69 01/03/19 04:00 97.7 76 18 173/91 (118) 93 01/03/19 00:00 97.2 68 18 170/75 (106) 91 01/03/19 00:00 64 01/02/19 21:40 95 Nasal Cannula 3.0 32 01/02/19 21:40 74 22 Nasal Cannula 3.0 32 01/02/19 21:40 Nasal Cannula 2.0 28 01/02/19 21:00 Nasal Cannula 2.0 01/02/19 20:57 69 160/75 01/02/19 20:00 98.5 69 18 160/75 (103) 91 01/02/19 20:00 75 01/02/19 16:00 98.6 67 20 148/79 (102) 99 Intake and Output 01/02/19 01/03/19 19:00 07:00 Intake Total 717 ml 1750 ml Output Total 100 ml Balance 617 ml 1750 ml Intake Oral 600 ml 120 ml IV Total 117 ml 1630 ml Output Urine Total 100 ml # Voids 3 2 # Bowel Movements 1 5 Laboratory Tests 01/03/19 05:45: White Blood Count 7.4, Red Blood Count 3.15L, Hemoglobin 8.9L, Hematocrit 27.8L , Mean Corpuscular Volume 88, Mean Corpuscular Hemoglobin 28.4, Mean Corpuscular Hemoglobin Concent 32.2, Red Cell Distribution Width 17.1H, Platelet Count 107L, Mean Platelet Volume 8.2, Neutrophils (%) (Auto) 76.6H, Lymphocytes (%) (Auto) 15.8L, Monocytes (%) (Auto) 6.4, Eosinophils (%) (Auto) 0.5, Basophils (%) (Auto) 0.6, Erythrocyte Sedimentation Rate 123H, Sodium Level 141, Potassium Level 3.6, Chloride Level 107, Carbon Dioxide Level 28, Anion Gap 6, Blood Urea Nitrogen 16, Creatinine 0.9, Estimat Glomerular Filtration Rate , Glucose Level 110H, Calcium Level 8.1L, Phosphorus Level 2.3L , Magnesium Level 2.0, C-Reactive Protein, Quantitative 12.3H 01/03/19 13:05: Miscellaneous Test 2 [Pending] Height (Feet): 5 Height (Inches): 6.00 Weight (Pounds): 127 General Appearance: lethargic EENT: normal ENT inspection Neck: normal alignment Cardiovascular: normal peripheral pulses, normal rate, regular rhythm Respiratory/Chest: chest wall non-tender, decreased breath sounds Abdomen: normal bowel sounds, non tender, soft Extremities: normal inspection Edema: no edema noted Arm (L), no edema noted Arm (R), no edema noted Leg (L), no edema noted Leg (R), no edema noted Pedal (L), no edema noted Pedal (R), no edema noted Generalized Neurologic: responsive, motor weakness Skin: normal pigmentation, warm/dry Landry Green DO Jan 03, 2019 14:51
--- NOTE | 2019-01-03 15:22 | NUR ---
NURSE NOTES:WOUND CARE FOLLOW-UP NOTES: Pt emaciated,appetite is poor . Sacral area with hyperpigmentation from previous wound ,Site tender when minimally palpated over bony prominence of coccyx. Moisture Barrier paste applied and covered with Optifoam drsg .Both heels are soft but blanchable .Cavilon SKin Barrier applied and each heel covered with Optifoam drsg. Pt is dependent on Head of Bed in High fowlers secondary to dyspnea. Pt also has preference to being on back . Pt educated of risks v/s benefits on repositioning to prevent further skin breakdown. educated pt of increase risks for sacral wound based on previous Hx of pressure injuries. Instructed pt on how to use side rails to offload pressure from buttocks and encouraged to off-load as frequently as tolerated.Pt verbalized understanding and agreed to comply but after pt was positioned by staff on side pt observed to immediately reposition self on to his back and verbalized not being comfortable on his side.Reinforced to pt to off-load pressure at least hourly. Pt placed on an APM/KAHLIL mattress to avoid further skin breakdown.
[2019-01-03 16:00] VITALS: BP 147/78
--- NOTE | 2019-01-03 16:12 | Diagnostic Imaging Report ---
Indication: History of prostate carcinoma, abnormal bones on prior imaging studies Technique: Limited views of the axial and appendicular skeleton Comparison: Reference made to prior chest and abdomen and pelvis CTs. Findings: As demonstrated on prior cross-sectional imaging studies, there is diffuse osteosclerosis of the axial skeleton, including the ribs, spine, clavicles, and scapulae. There is somewhat more heterogeneous osteosclerosis of the proximal femurs and humeri. However, the distal femurs, tibiae, fibulae, humeri and forearms appear much less osteosclerotic. The cervical spine appears diffusely osteoporotic but the skull, facial bones, and mandible appears somewhat less so. There are degenerative changes of the cervical, thoracic, and lumbar spine. A very large inguinal hernia, also reported on prior abdomen pelvis CT, is also noted. Extensive pulmonary parenchymal disease and left pleural effusion is again demonstrated Impression: Extensive diffuse osseous sclerosis, as described above and on multiple previous exams. This appears largely centered on the axial skeleton. As previously, the appearance is nonspecific, main differential considerations including osteoblastic metastatic disease versus systemic/metabolic disorder. The predominant central skeletal predilection somewhat favors the latter Large inguinal hernia, also previously reported Degenerative spondylosis Extensive pulmonary parenchymal disease and large left pleural effusion, also previously reported
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
[2019-01-03] MEDS: Amikacin 800 MG in NS 110 ML IV SCH (17:06)
[2019-01-03] MEDS ORDERED: DAPTOmycin 250 MG in NS 55 ML IV ONE (17:30)
--- NOTE | 2019-01-03 19:40 | NUR ---
NURSE NOTES: Received report from Tony Estrada RN. Patient in bed asleep with no S/S of acute pain or distress noted at this time. Able to verbally express needs and wants appropriately with no difficulty. On NC 2L with 02 sat at 94-96% with no respiratory distress at this time. IV line intact and patent. Safety precaution in place; siderails x3 up, call light within reach, bed in lowest position, brakes and alarm on at all times and placed on continuous cardiac monitoring per protocol. Needs and wants anticipated and attended, will continue plan of care and monitor for any changes noted. Placed on strict contact isolation for KPC and VRE rectum.
[2019-01-03 21:00] VITALS: BP 157/84
--- NOTE | 2019-01-03 21:30 | NUR ---
NURSE NOTES: Called and left message to Laci Dalton MD regarding patients current order of 24' urine collection. Patient incontinent with no FC and enlarged scrotum. Unable to obtain urine thru urinal, FC or straight cath. Awaiting further orders. Will continue to monitor.
[2019-01-03] MEDS: Miralax 17gm pkt ORAL SCH (21:39)
--- NOTE | 2019-01-03 22:35 | NUR ---
HAND-OFF: Report given to Boni Sparks RN. Patient in bed asleep in stable condition. ENdorsed plan of care
[2019-01-04] VITALS: BP 155/77
[2019-01-04] MEDS: Aztreonam 1gm/D5W 55ml IVPB SCH ×6 (01:12→18:51)
[2019-01-04] MEDS: SODIUM CHLORIDE IVPB SCH ×6 (03:20→19:53)
[2019-01-04] MEDS: AVIBACTAM IVPB SCH ×6 (03:20→19:53)
[2019-01-04] MEDS: CEFTAZIDIME IVPB SCH ×6 (03:20→19:53)
[2019-01-04 04:00] VITALS: BP 175/80
--- NOTE | 2019-01-04 04:20 | NUR ---
NURSE NOTES: Received call back from Laci Dalton MD. DC 24' urine collection. Will continue to monitor
--- NOTE | 2019-01-04 04:30 | NUR ---
NURSE NOTES: Patient C/O SOB, sp02 is 94, RT made aware and albuterol breathing Tx was given by RT
--- NOTE | 2019-01-04 04:45 | NUR ---
NURSE NOTES: Patient still C/O SOB, RR 31, Spo2 is 84. STAT ABG performed, and venturi mask is put on. Paged Dr Emerson, awaiting call back at this time.
--- NOTE | 2019-01-04 05:05 | NUR ---
NURSE NOTES: With venturi mask, patient sp02 still at 73-79. Bi pap mary be put on by RT. Pages Dr massey, awaiting for call back
--- NOTE | 2019-01-04 05:36 | NUR ---
NURSE NOTES: Currently patient is on bipap /, fi02 100%m sp02 100%. will continue to monitor patient
--- NOTE | 2019-01-04 05:52 | NUR ---
RESPIRATORY NOTE: Placed pt on bipap 12/5 FIO2 100% due to abnormal ABG result. SARAI Tran aware. Alarms are on and audible. No red outlet in the room which I told Chelsea to find one that is equipped and let me know. Will continue to monitor pt's progress.
--- NOTE | 2019-01-04 07:20 | NUR ---
NURSE NOTES: Received report from Verito MOON. Alert, arousal. Rhythm reported with SR during cook night. Bed in lowest position locked. Stage 2 pressure ulcer on sacral reported. IV LFA and RFA both with 22G and NS @125ml/hr running. No signs of bleeding noted. No signs of distress noted. Observed good contact isolation with C and VRE. On Bipap with IPAP 12, FIO2 100%, RR 18. On SCD. Will continue to monitor.
--- NOTE | 2019-01-04 07:20 | NUR ---
HAND-OFF: Report given to Alison Johnston RN.
[2019-01-04 08:00] VITALS: BP 128/62
[2019-01-04 08:05] LABS: BASOPHILS % (AUTO) 0.5 % (0.0-2.0); EOSINOPHILS % (AUTO) 0.7 % (0.0-3.0); HEMOGLOBIN 8.8 G/DL (14.2-18.0); LYMPHOCYTES % (AUTO) 19.3 % (20.0-45.0); MEAN CORPUSCULAR VOLUME 89 FL (80-99); MONOCYTES % (AUTO) 5.4 % (1.0-10.0); NEUTROPHILS % (AUTO) 74.1 % (45.0-75.0); PLATELET COUNT 109 K/UL (150-450); RED BLOOD COUNT 3.15 M/UL (4.70-6.10); RED CELL DISTRIBUTION WIDTH 17.4 % (11.6-14.8); WHITE BLOOD COUNT 9.5 K/UL (4.8-10.8)
[2019-01-04 08:25] LABS: ANION GAP 7 mmol/L (5-15); BLOOD UREA NITROGEN 19 mg/dL (7-18); CALCIUM 8.2 MG/DL (8.5-10.1); CARBON DIOXIDE 27 MMOL/L (21-32); CHLORIDE 108 MMOL/L (98-107); POTASSIUM 3.5 MMOL/L (3.5-5.1); SODIUM 142 MMOL/L (136-145)
--- NOTE | 2019-01-04 08:56 | NUR ---
RADIOLOGY DEPT., CHEST X-RAY DONE.-P.DYE
[2019-01-04] MEDS: Bicalutamide 50mg tab ORAL SCH (09:00)
[2019-01-04] MEDS: Docusate 100mg cap ORAL SCH ×2 (09:00→18:00)
[2019-01-04] MEDS: Dronabinol 2.5mg Cap ORAL SCH ×3 (09:00→18:00)
[2019-01-04] MEDS: Amiodarone 200mg tab ORAL SCH (09:00)
[2019-01-04] MEDS: Digoxin 0.125mg tab ORAL SCH (09:00)
[2019-01-04] MEDS: Pantoprazole Inj IV SCH (09:24)
--- NOTE | 2019-01-04 09:35 | NUR ---
NURSE NOTES: pt seen by dr. Lane. No new order
--- NOTE | 2019-01-04 09:39 | Nephrology Progress Note ---
Assessment/Plan Assessment/Plan A/P 1) E- ABN- hypophosphatemia/Mg/K+ ( on Amikacin) - all being replaced prn - replace K+ 2) Afib RVR- per cardiology 3) Sepsis- on Abx recurrent sepsis-multifactorial 2ry to bacteremia, PNA and UTI Persistent CRE/fernandez resistant Bacteremia- ? from UTI (however K pna in urine fairly sensitive; no presence of central lines currently)- r/o abscess - multiAbx, nephrotoxic per ID mgmt - Cr stable. Will decrease IVFs 4) Anemia- stable Subjective Date patient seen: Jan 04, 2019 Time patient seen: 09:37 ROS Limited/Unobtainable: No Respiratory: Reports: shortness of breath Allergies: Coded Allergies: No Known Allergies (Unverified , 12/15/18) Subjective Patient continues to improve and feel better but SOB today Objective Last 24 Hour Vital Signs Date Time Temp Pulse Resp B/P (MAP) Pulse Ox O2 Delivery O2 Flow Rate FiO2 01/04/19 09:00 68 128/62 01/04/19 09:00 68 01/04/19 08:00 97.4 68 24 128/62 (84) 100 01/04/19 07:27 Nasal Cannula 3.0 32 01/04/19 07:27 97 Nasal Cannula 3.0 32 01/04/19 07:00 70 24 100 Facial 80 01/04/19 05:48 73 22 99 Facial 100 01/04/19 05:00 Nasal Cannula 2.0 01/04/19 04:35 85 22 99 Nasal Cannula 4.0 36 01/04/19 04:28 80 24 97 Nasal Cannula 3.0 32 01/04/19 04:00 97.5 73 19 175/80 (111) 91 01/04/19 03:29 60 01/04/19 00:00 98.0 64 19 155/77 (103) 100 01/03/19 23:28 66 01/03/19 21:38 88 157/84 01/03/19 21:05 96 Nasal Cannula 3.0 32 01/03/19 21:05 Nasal Cannula 3.0 32 01/03/19 21:04 72 20 Nasal Cannula 3.0 32 01/03/19 21:00 98.8 88 18 157/84 (108) 96 01/03/19 21:00 Nasal Cannula 2.0 01/03/19 19:40 81 01/03/19 16:00 98.1 77 21 147/78 (101) 91 01/03/19 16:00 85 01/03/19 12:00 75 01/03/19 12:00 97.0 80 22 141/80 (100) 98 01/03/19 09:40 70 01/03/19 09:39 70 173/91 Intake and Output 01/03/19 01/04/19 18:59 06:59 Intake Total 708.2 ml 1850 ml Balance 708.2 ml 1850 ml Intake Oral 360 ml 200 ml IV Total 348.2 ml 1650 ml # Voids 4 3 # Bowel Movements 2 2 Laboratory Tests 01/03/19 13:05: Miscellaneous Test 2 [Pending] 01/03/19 15:00: Total Protein (PEP) [Pending], Albumin (PEP) [Pending], Globulin (PEP) [Pending] , Albumin/Globulin Ratio [Pending], Jkhal-3-Toirnzlgn [Pending], Alpha-2- Globulins [Pending], Beta Globulins [Pending], Beta Gamma Globulin [Pending], PEP Abnormal Protein Bands [Pending], Protein Electrophoresis Interpret [Pending ], CA 19-9 Antigen 22, Immunoglobulin G [Pending], Immunoglobulin A [Pending], Immunoglobulin M [Pending], Immunofixation Screen [Pending] 01/04/19 05:15: Arterial Blood pH 7.253L, Arterial Blood Partial Pressure CO2 57.7*H, Arterial Blood Partial Pressure O2 48.0*L, Arterial Blood HCO3 24.9, Arterial Blood Oxygen Saturation 75.2*L, Arterial Blood Base Excess -2.7L, Remberto Test Positive 01/04/19 05:50: White Blood Count 9.5, Red Blood Count 3.15L, Hemoglobin 8.8L, Hematocrit 28.0L , Mean Corpuscular Volume 89, Mean Corpuscular Hemoglobin 27.9, Mean Corpuscular Hemoglobin Concent 31.4L, Red Cell Distribution Width 17.4H, Platelet Count 109L, Mean Platelet Volume 8.0, Neutrophils (%) (Auto) 74.1, Lymphocytes (%) (Auto) 19.3L, Monocytes (%) (Auto) 5.4, Eosinophils (%) (Auto) 0.7, Basophils (%) (Auto) 0.5, Sodium Level 142, Potassium Level 3.5, Chloride Level 108H, Carbon Dioxide Level 27, Anion Gap 7, Blood Urea Nitrogen 19H, Creatinine 1.0, Estimat Glomerular Filtration Rate , Glucose Level 157H, Calcium Level 8.2L Height (Feet): 5 Height (Inches): 6.00 Weight (Pounds): 130 General Appearance: mild distress EENT: normal ENT inspection Neck: normal alignment, supple Cardiovascular: normal rate, regular rhythm Respiratory/Chest: accessory muscle use, crackles/rales, rhonchi - bilaterally Abdomen: non tender, soft Edema: no edema noted Arm (L), no edema noted Arm (R), no edema noted Leg (L), no edema noted Leg (R), no edema noted Pedal (L), no edema noted Pedal (R), no edema noted Generalized Sacha Jacome MD Jan 04, 2019 09:39
--- NOTE | 2019-01-04 10:12 | NUR ---
ST NOTE: ST EVAL ATTEMPTED PT IS ON BIPAP. WILL FOLLOW. RN, EVAN, AWARE.
--- NOTE | 2019-01-04 10:39 | GI Progress Note ---
Assessment/Plan Problems: (1) Severe anemia ICD Codes: D64.9 - Anemia, unspecified SNOMED: 859383342 (2) Anemia ICD Codes: D64.9 - Anemia, unspecified SNOMED: 586315536 (3) Elevated LFTs ICD Codes: R94.5 - Abnormal results of liver function studies SNOMED: 891290335, 442919397 (4) Dysphagia ICD Codes: R13.10 - Dysphagia, unspecified SNOMED: 84142199, 021328530 Status: unchanged Status Narrative Discussed with Dr. Caruso Assessment/Plan s/p EGD SUMMARY OF FINDINGS: Severe gastritis versus portal hypertensive gastropathy versus ischemia, status post biopsy. Status post thoracentesis Diet per ST on Marinol, push PO Continue on PPI. Carafate. Follow up biopsy results and treat accordingly. prn transfusions Electrolyte correction follow labs bowel regimen PT evaluation The patient was seen and examined at bedside and all new and available data was reviewed in the patients chart. I agree with the above findings, impression and plan. (Patient seen earlier today. Signature stamp does not reflect patient encounter time.). - Mike Caruso MD Subjective Subjective Denies any abdominal pain Poor appetite States he dislikes the food here feels overall better States that the Marinol is helping Short of breath Objective Last 24 Hour Vital Signs Date Time Temp Pulse Resp B/P (MAP) Pulse Ox O2 Delivery O2 Flow Rate FiO2 01/04/19 09:00 68 128/62 01/04/19 09:00 68 01/04/19 08:00 97.4 68 24 128/62 (84) 100 01/04/19 07:51 73 01/04/19 07:27 Nasal Cannula 3.0 32 01/04/19 07:27 97 Nasal Cannula 3.0 32 01/04/19 07:00 70 24 100 Facial 80 01/04/19 05:48 73 22 99 Facial 100 01/04/19 05:00 Nasal Cannula 2.0 01/04/19 04:35 85 22 99 Nasal Cannula 4.0 36 01/04/19 04:28 80 24 97 Nasal Cannula 3.0 32 01/04/19 04:00 97.5 73 19 175/80 (111) 91 01/04/19 03:29 60 01/04/19 00:00 98.0 64 19 155/77 (103) 100 01/03/19 23:28 66 01/03/19 21:38 88 157/84 01/03/19 21:05 96 Nasal Cannula 3.0 32 01/03/19 21:05 Nasal Cannula 3.0 32 01/03/19 21:04 72 20 Nasal Cannula 3.0 32 01/03/19 21:00 98.8 88 18 157/84 (108) 96 01/03/19 21:00 Nasal Cannula 2.0 01/03/19 19:40 81 01/03/19 16:00 98.1 77 21 147/78 (101) 91 01/03/19 16:00 85 01/03/19 12:00 75 01/03/19 12:00 97.0 80 22 141/80 (100) 98 Intake and Output 01/03/19 01/04/19 18:59 06:59 Intake Total 708.2 ml 1850 ml Balance 708.2 ml 1850 ml Intake Oral 360 ml 200 ml IV Total 348.2 ml 1650 ml # Voids 4 3 # Bowel Movements 2 2 Laboratory Tests Test 01/03/19 13:05 01/03/19 15:00 01/04/19 05:15 01/04/19 05:50 Miscellaneous Test 2 Pending Total Protein (PEP) Pending Albumin (PEP) Pending Globulin (PEP) Pending Albumin/Globulin Ratio Pending Dkfux-7-Etvgukpbs Pending Zizpp-0-Ooiekxbly Pending Beta Globulins Pending Beta Gamma Globulin Pending PEP Abnormal Protein Bands Pending Protein Electrophoresis Interpret Pending CA 19-9 Antigen 22 U/mL (0-35) Immunoglobulin G Pending Immunoglobulin A Pending Immunoglobulin M Pending Immunofixation Screen Pending Arterial Blood pH 7.253 (7.350-7.450) Arterial Blood Partial Pressure CO2 57.7 mmHg (35.0-45.0) *H Arterial Blood Partial Pressure O2 48.0 mmHg (75.0-100.0) Arterial Blood HCO3 24.9 mmol/L (22.0-26.0) Arterial Blood Oxygen Saturation 75.2 % (95-100) *L Arterial Blood Base Excess -2.7 (-2-2) L Remberto Test Positive White Blood Count 9.5 K/UL (4.8-10.8) Red Blood Count 3.15 M/UL (4.70-6.10) L Hemoglobin 8.8 G/DL (14.2-18.0) L Hematocrit 28.0 % (42.0-52.0) L Mean Corpuscular Volume 89 FL (80-99) Mean Corpuscular Hemoglobin 27.9 PG (27.0-31.0) Mean Corpuscular Hemoglobin Concent 31.4 G/DL (32.0-36.0) L Red Cell Distribution Width 17.4 % (11.6-14.8) H Platelet Count 109 K/UL (150-450) L Mean Platelet Volume 8.0 FL (6.5-10.1) Neutrophils (%) (Auto) 74.1 % (45.0-75.0) Lymphocytes (%) (Auto) 19.3 % (20.0-45.0) L Monocytes (%) (Auto) 5.4 % (1.0-10.0) Eosinophils (%) (Auto) 0.7 % (0.0-3.0) Basophils (%) (Auto) 0.5 % (0.0-2.0) Sodium Level 142 MMOL/L (136-145) Potassium Level 3.5 MMOL/L (3.5-5.1) Chloride Level 108 MMOL/L (98-107) H Carbon Dioxide Level 27 MMOL/L (21-32) Anion Gap 7 mmol/L (5-15) Blood Urea Nitrogen 19 mg/dL (7-18) H Creatinine 1.0 MG/DL (0.55-1.30) Estimat Glomerular Filtration Rate mL/min (>60) Glucose Level 157 MG/DL (74-106) H Calcium Level 8.2 MG/DL (8.5-10.1) L Height (Feet): 5 Height (Inches): 6.00 Weight (Pounds): 130 General Appearance: WD/WN, no apparent distress, alert, thin Cardiovascular: normal rate Respiratory/Chest: normal breath sounds, no respiratory distress Abdominal Exam: normal bowel sounds, non tender, soft Extremities: non-tender Elke Jacobson NP Jan 04, 2019 10:39
--- NOTE | 2019-01-04 10:44 | Pulmonology Progress Note ---
Assessment/Plan Problems: (1) Pleural effusion (2) Prostate cancer (3) Acute respiratory failure (4) Respiratory failure with hypoxia (5) Atrial fibrillation with rapid ventricular response (6) Thrombocytopenia (7) DM (diabetes mellitus) Assessment/Plan was short of breath earlier, on 100%NRm bone marrow biopsy showed metastatic Prostate cancer titrate fio2 to sat of 92% continue monitoring heart rate Persistent bacteremia is concerning for malignancy. will discuss with pt's daughters about code status. and plan of care. Subjective ROS Limited/Unobtainable: Yes Constitutional: Reports: fatigue, anorexia Respiratory: Reports: shortness of breath Allergies: Coded Allergies: No Known Allergies (Unverified , 12/15/18) Objective Last 24 Hour Vital Signs Date Time Temp Pulse Resp B/P (MAP) Pulse Ox O2 Delivery O2 Flow Rate FiO2 01/04/19 09:00 68 128/62 01/04/19 09:00 68 01/04/19 08:00 97.4 68 24 128/62 (84) 100 01/04/19 07:51 73 01/04/19 07:27 Nasal Cannula 3.0 32 01/04/19 07:27 97 Nasal Cannula 3.0 32 01/04/19 07:00 70 24 100 Facial 80 01/04/19 05:48 73 22 99 Facial 100 01/04/19 05:00 Nasal Cannula 2.0 01/04/19 04:35 85 22 99 Nasal Cannula 4.0 36 01/04/19 04:28 80 24 97 Nasal Cannula 3.0 32 01/04/19 04:00 97.5 73 19 175/80 (111) 91 01/04/19 03:29 60 01/04/19 00:00 98.0 64 19 155/77 (103) 100 01/03/19 23:28 66 01/03/19 21:38 88 157/84 01/03/19 21:05 96 Nasal Cannula 3.0 32 01/03/19 21:05 Nasal Cannula 3.0 32 01/03/19 21:04 72 20 Nasal Cannula 3.0 32 01/03/19 21:00 98.8 88 18 157/84 (108) 96 01/03/19 21:00 Nasal Cannula 2.0 01/03/19 19:40 81 01/03/19 16:00 98.1 77 21 147/78 (101) 91 01/03/19 16:00 85 01/03/19 12:00 75 01/03/19 12:00 97.0 80 22 141/80 (100) 98 Intake and Output 01/03/19 01/04/19 18:59 06:59 Intake Total 708.2 ml 1850 ml Balance 708.2 ml 1850 ml Intake Oral 360 ml 200 ml IV Total 348.2 ml 1650 ml # Voids 4 3 # Bowel Movements 2 2 Objective General Appearance: cachetic Respiratory/Chest: chest wall non-tender, lungs clear Cardiovascular: normal peripheral pulses, normal rate Abdomen: normal bowel sounds, soft, non tender Genitourinary: normal external genitalia Extremities: no clubbing Skin: no lesions Laboratory Tests 01/03/19 13:05: Miscellaneous Test 2 [Pending] 01/03/19 15:00: Total Protein (PEP) [Pending], Albumin (PEP) [Pending], Globulin (PEP) [Pending] , Albumin/Globulin Ratio [Pending], Rytnw-6-Skdnduxmd [Pending], Alpha-2- Globulins [Pending], Beta Globulins [Pending], Beta Gamma Globulin [Pending], PEP Abnormal Protein Bands [Pending], Protein Electrophoresis Interpret [Pending ], CA 19-9 Antigen 22, Immunoglobulin G [Pending], Immunoglobulin A [Pending], Immunoglobulin M [Pending], Immunofixation Screen [Pending] 01/04/19 05:15: Arterial Blood pH 7.253L, Arterial Blood Partial Pressure CO2 57.7*H, Arterial Blood Partial Pressure O2 48.0*L, Arterial Blood HCO3 24.9, Arterial Blood Oxygen Saturation 75.2*L, Arterial Blood Base Excess -2.7L, Remberto Test Positive 01/04/19 05:50: White Blood Count 9.5, Red Blood Count 3.15L, Hemoglobin 8.8L, Hematocrit 28.0L , Mean Corpuscular Volume 89, Mean Corpuscular Hemoglobin 27.9, Mean Corpuscular Hemoglobin Concent 31.4L, Red Cell Distribution Width 17.4H, Platelet Count 109L, Mean Platelet Volume 8.0, Neutrophils (%) (Auto) 74.1, Lymphocytes (%) (Auto) 19.3L, Monocytes (%) (Auto) 5.4, Eosinophils (%) (Auto) 0.7, Basophils (%) (Auto) 0.5, Sodium Level 142, Potassium Level 3.5, Chloride Level 108H, Carbon Dioxide Level 27, Anion Gap 7, Blood Urea Nitrogen 19H, Creatinine 1.0, Estimat Glomerular Filtration Rate , Glucose Level 157H, Calcium Level 8.2L Current Medications Medications (Trade) Dose Ordered Sig/Brock Route PRN Reason Start Time Stop Time Status Last Admin Dose Admin Acetaminophen (Tylenol) 650 mg Q4H PRN ORAL fever 12/28/18 23:15 01/15/19 07:14 Albuterol/ Ipratropium (Albuterol/ Ipratropium) 3 ml Q4H PRN HHN Shortness of Breath 12/30/18 19:45 01/04/19 19:44 01/04/19 04:27 Amikacin Protocol (Amikacin pharmacy to dose) 1 ea DAILY PRN MISC Per rx protocol 12/31/18 16:00 01/30/19 15:59 Amikacin Sulfate 800 mg/Sodium Chloride 113.2 ml @ 226.4 mls/ hr Q36H IV 12/31/18 17:00 01/07/19 16:59 01/03/19 17:06 Amiodarone HCl (Cordarone) 200 mg DAILY ORAL 12/29/18 09:00 01/27/19 10:14 01/03/19 09:39 Aztreonam 1 gm/ Dextrose 55 ml @ 110 mls/hr Q8HR@0200,1000,1800 IVPB 01/01/19 10:00 01/08/19 09:59 01/04/19 09:25 Bicalutamide (Casodex) 50 mg DAILY ORAL 01/01/19 09:00 01/06/19 08:59 01/03/19 09:39 Ceftazidime/ Avibactam 2.5 gm/ Sodium Chloride 110 ml @ 55 mls/hr Q8HR@0400,1200,2000 IVPB 01/01/19 12:00 01/08/19 11:59 01/04/19 03:20 Clonidine HCl (Catapres Tab) 0.1 mg Q6H PRN ORAL For High Blood Pressure 01/03/19 08:00 02/02/19 07:59 Dextrose (Dextrose 50%) 25 ml Q30M PRN IV Hypoglycemia 12/28/18 22:45 01/15/19 07:14 Dextrose (Dextrose 50%) 50 ml Q30M PRN IV Hypoglycemia 12/30/18 19:45 01/29/19 19:44 Digoxin (Lanoxin) 0.125 mg DAILY ORAL 12/29/18 09:00 01/18/19 08:59 01/03/19 09:40 Diltiazem HCl (Cardizem) 10 mg EVERY HOUR PRN IV heart rate more than 120 BPM 12/28/18 23:00 01/26/19 11:14 Docusate Sodium (Colace) 100 mg TWICE A DAY ORAL 12/31/18 18:00 01/30/19 17:59 01/03/19 17:30 Dronabinol (Marinol) 2.5 mg TID ORAL 12/29/18 09:00 01/27/19 12:59 01/03/19 17:30 Iopamidol (Isovue-300 100ml) 100 ml NOW PRN INJ Radiology Procedure 12/31/18 14:15 Metoprolol Tartrate (Lopressor) 100 mg EVERY 12 HOURS NG 12/29/18 09:00 01/17/19 08:59 01/03/19 21:38 Pantoprazole (Protonix) 40 mg DAILY IV 12/29/18 09:00 01/17/19 08:59 01/04/19 09:24 Polyethylene Glycol (Miralax) 17 gm BEDTIME ORAL 12/31/18 21:00 01/30/19 20:59 01/03/19 21:39 Potassium Chloride (K-Dur) 40 meq ONCE ORAL 01/04/19 09:45 01/04/19 11:30 01/04/19 09:52 Sodium Chloride 1,000 ml @ 65 mls/hr [id number] IV 01/04/19 10:00 02/03/19 09:59 Bryan Emerson MD Jan 04, 2019 10:44
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
--- NOTE | 2019-01-04 11:51 | Surgery Progress Note ---
Surgery Progress Note Subjective Additional Comments bone marrow results noted. diffuse ca. exam unchanged. Objective Last 24 Hour Vital Signs Date Time Temp Pulse Resp B/P (MAP) Pulse Ox O2 Delivery O2 Flow Rate FiO2 01/04/19 11:07 80 22 100 Facial 60 01/04/19 09:00 Bi-pap 2.0 01/04/19 09:00 68 128/62 01/04/19 09:00 68 01/04/19 08:00 97.4 68 24 128/62 (84) 100 01/04/19 08:00 73 01/04/19 07:51 73 01/04/19 07:27 Nasal Cannula 3.0 32 01/04/19 07:27 97 Nasal Cannula 3.0 32 01/04/19 07:00 70 24 100 Facial 80 01/04/19 05:48 73 22 99 Facial 100 01/04/19 05:00 Nasal Cannula 2.0 01/04/19 04:35 85 22 99 Nasal Cannula 4.0 36 01/04/19 04:28 80 24 97 Nasal Cannula 3.0 32 01/04/19 04:00 97.5 73 19 175/80 (111) 91 01/04/19 03:29 60 01/04/19 00:00 98.0 64 19 155/77 (103) 100 01/03/19 23:28 66 01/03/19 21:38 88 157/84 01/03/19 21:05 96 Nasal Cannula 3.0 32 01/03/19 21:05 Nasal Cannula 3.0 32 01/03/19 21:04 72 20 Nasal Cannula 3.0 32 01/03/19 21:00 98.8 88 18 157/84 (108) 96 01/03/19 21:00 Nasal Cannula 2.0 01/03/19 19:40 81 01/03/19 16:00 98.1 77 21 147/78 (101) 91 01/03/19 16:00 85 01/03/19 12:00 75 01/03/19 12:00 97.0 80 22 141/80 (100) 98 I&O Intake and Output 01/03/19 01/04/19 19:00 07:00 Intake Total 583.2 ml 1850 ml Balance 583.2 ml 1850 ml Intake Oral 360 ml 200 ml IV Total 223.2 ml 1650 ml # Voids 4 3 # Bowel Movements 2 2 Drains: none Cardiovascular: RSR Respiratory: clear Abdomen: soft, non-tender, present bowel sounds, other, non-distended Extremities: no cyanosis Laboratory Tests Test 01/03/19 13:05 01/03/19 15:00 01/04/19 05:15 01/04/19 05:50 Miscellaneous Test 2 Pending Total Protein (PEP) Pending Albumin (PEP) Pending Globulin (PEP) Pending Albumin/Globulin Ratio Pending Teplm-5-Ihyllmcxy Pending Ectrk-9-Jkdtgenhm Pending Beta Globulins Pending Beta Gamma Globulin Pending PEP Abnormal Protein Bands Pending Protein Electrophoresis Interpret Pending CA 19-9 Antigen 22 U/mL (0-35) Immunoglobulin G Pending Immunoglobulin A Pending Immunoglobulin M Pending Immunofixation Screen Pending Arterial Blood pH 7.253 (7.350-7.450) Arterial Blood Partial Pressure CO2 57.7 mmHg (35.0-45.0) *H Arterial Blood Partial Pressure O2 48.0 mmHg (75.0-100.0) Arterial Blood HCO3 24.9 mmol/L (22.0-26.0) Arterial Blood Oxygen Saturation 75.2 % (95-100) *L Arterial Blood Base Excess -2.7 (-2-2) L Remberto Test Positive White Blood Count 9.5 K/UL (4.8-10.8) Red Blood Count 3.15 M/UL (4.70-6.10) L Hemoglobin 8.8 G/DL (14.2-18.0) L Hematocrit 28.0 % (42.0-52.0) L Mean Corpuscular Volume 89 FL (80-99) Mean Corpuscular Hemoglobin 27.9 PG (27.0-31.0) Mean Corpuscular Hemoglobin Concent 31.4 G/DL (32.0-36.0) L Red Cell Distribution Width 17.4 % (11.6-14.8) H Platelet Count 109 K/UL (150-450) L Mean Platelet Volume 8.0 FL (6.5-10.1) Neutrophils (%) (Auto) 74.1 % (45.0-75.0) Lymphocytes (%) (Auto) 19.3 % (20.0-45.0) L Monocytes (%) (Auto) 5.4 % (1.0-10.0) Eosinophils (%) (Auto) 0.7 % (0.0-3.0) Basophils (%) (Auto) 0.5 % (0.0-2.0) Sodium Level 142 MMOL/L (136-145) Potassium Level 3.5 MMOL/L (3.5-5.1) Chloride Level 108 MMOL/L (98-107) H Carbon Dioxide Level 27 MMOL/L (21-32) Anion Gap 7 mmol/L (5-15) Blood Urea Nitrogen 19 mg/dL (7-18) H Creatinine 1.0 MG/DL (0.55-1.30) Estimat Glomerular Filtration Rate mL/min (>60) Glucose Level 157 MG/DL (74-106) H Calcium Level 8.2 MG/DL (8.5-10.1) L Test 01/04/19 10:42 Arterial Blood pH 7.304 (7.350-7.450) Arterial Blood Partial Pressure CO2 56.2 mmHg (35.0-45.0) *H Arterial Blood Partial Pressure O2 236.8 mmHg (75.0-100.0) H Arterial Blood HCO3 27.3 mmol/L (22.0-26.0) H Arterial Blood Oxygen Saturation 98.7 % (95-100) Arterial Blood Base Excess 0.5 (-2-2) Remberto Test Positive Plan Problems: (1) Inguinal hernia Assessment & Plan: 78 year old male with massive inguinal hernia with bowel contents. CT with Massive indirect right inguinal hernia, containing the proximal colon and much if not most of the small bowel. No definite evidence of obstruction or strangulation Anasarca, with diffuse extensive bilateral pulmonary edema, bilateral pleural effusions, small amount of free intraperitoneal fluid, and extensive edema of the subcutaneous and mediastinal fat Colonic diverticulosis Diffuse skeletal osteosclerosis Distended bladder Prostatomegaly Large bilateral renal cysts. Calcification in the periventricular right kidney likely represent old involuted calcified cyst Nasogastric tube Incidental finding right lobe liver cyst On exam large inguinal hernia with bowel contents in scrotum not reducible but no signs of obstruction / strangulation. in reviewing CT likely loss of domain given patients body habitus compared to hernia size. patient awake but intubated on vent support. no tenderness but does have discomfort with manipulation. given above no acute surgical intervention planned as this is likely chronic and with loss of domain. unlikely to be incarcerated but will need to keep an eye on it as bowel can obstruction will follow with exams No significant interval change in the massive right-sided indirect inguinal hernia with loops of small bowel and colon in the right scrotum. No evidence of bowel obstruction or strangulation. Moderate right sided layering pleural effusion, mildly increased compared to the prior exam. No significant change in the small layering left pleural effusion. Interval worsening of near complete consolidation of the left lower lobe with air bronchograms, which may suggest pneumonia versus atelectasis. Dependent consolidation in the right lung base, which may represent atelectasis versus pneumonia, stable. Unchanged appearance of diffuse of diffuse soft tissue edema/anasarca. Unchanged appearance of hepatic and renal cysts. Diffuse skeletal osteosclerosis, unchanged. leukocytosis resolved CXR noted after thoracentesis - resolved pleural effusion Abx as per ID appreciate Cardiology input BMbiopsy noted EGD results noted given findings unlikely surgical candidate at this time thank you (2) Pleural effusion Assessment & Plan: s/p thoracentesis with removal of near 1600cc fluids CXR noted after thoracentesis - resolved pleural effusion (3) Prostate cancer Yordy Tucker Jan 04, 2019 11:51
--- NOTE | 2019-01-04 11:59 | Diagnostic Imaging Report ---
Indication: Dyspnea Comparison: 01/01/2019 A single view chest radiograph was obtained. Findings: Moderate to severe pulmonary edema left pleural effusion demonstrated. Heart is enlarged and stable. IMPRESSION: No significant change. Moderate to severe pulmonary edema. Left pleural effusion
[2019-01-04 12:00] VITALS: BP 146/73
--- NOTE | 2019-01-04 12:36 | NUR ---
Social Service Note SW provided Dr. Emerson patient's dgt's contact number Paula Lerma [phone]. Paula is available to then contact her sister Jenni on a 3 way call to discuss treatment plan of care with Dr. Emerson. Dr. Emerson will discuss biopsy results. Will monitor and follow up as needed to support family decision regarding plan of care.
--- NOTE | 2019-01-04 13:43 | Cardiology Report ---
APPROVED REPORT EXAM: Two-dimensional and M-mode echocardiogram with Doppler and color Doppler. M-Mode DIMENSIONS IVSd1.1 (0.7-1.1cm)Left Atrium (MM)2.6 (1.6-4.0cm) LVDd4.0 (3.5-5.6cm)Aortic Root3.5 (2.0-3.7cm) PWd0.8 (0.7-1.1cm)Aortic Cusp Exc.1.8 (1.5-2.0cm) IVSs1.2 cm LVDs3.1 (2.5-4.0cm) PWs0.7 cm Normal left ventricular chamber size, systolic function and wall motion. Left ventricular ejection fraction estimated to be 55 %. Mild left ventricular hypertrophy by 2-D. No evidence of pericardial effusion. All other cardiac chamber sizes are within normal limits. Focal aortic valve sclerosis with adequate cusp excursion. Thickened mitral valve leaflets with normal excursion. Mitral annulus and aortic root calcification. Pulmonic valve not well visualized. Normal tricuspid valve structure. IVC at normal size with slight physiologic collapse. No discrete vegetations seen,within the the limitations of this transthoracic 2-D echo. A color flow and spectral Doppler study was performed and revealed: Mild aortic inssuficency . Left ventricular diastolic function can not determined due to A-FIB . Moderate mitral regurgitation . Moderate tricuspid regurgitation. Tricuspid systolic velocities suggests peak right ventricular systolic pressure of 64 mmHg,consistent with severe pulmonary hypertension.
--- NOTE | 2019-01-04 14:36 | General Progress Note ---
Assessment/Plan Problem List: (1) Respiratory failure with hypoxia ICD Codes: J96.91 - Respiratory failure, unspecified with hypoxia SNOMED: 18266398091716817 Qualifiers: Qualified Codes: J96.01 - Acute respiratory failure with hypoxia (2) Atrial fibrillation with rapid ventricular response ICD Codes: I48.91 - Unspecified atrial fibrillation SNOMED: 159862553622580, 578598811 (3) Severe anemia ICD Codes: D64.9 - Anemia, unspecified SNOMED: 584399891 (4) ATN (acute tubular necrosis) ICD Codes: N17.0 - Acute kidney failure with tubular necrosis SNOMED: 74772034 (5) DM (diabetes mellitus) ICD Codes: E11.9 - Type 2 diabetes mellitus without complications SNOMED: 59639533 (6) Fever ICD Codes: R50.9 - Fever, unspecified SNOMED: 177411377 Status: unchanged Assessment/Plan vent transfuse prn cardio heme eval f/u cbc bmp am dc plan snf Subjective Constitutional: Reports: weakness Respiratory: Reports: shortness of breath Allergies: Coded Allergies: No Known Allergies (Unverified , 12/15/18) All Systems: reviewed and negative except above Subjective o2 nc sleepy Objective Last 24 Hour Vital Signs Date Time Temp Pulse Resp B/P (MAP) Pulse Ox O2 Delivery O2 Flow Rate FiO2 01/04/19 12:37 67 20 100 Facial 50 01/04/19 12:00 97.6 65 22 146/73 (97) 100 01/04/19 11:07 80 22 100 Facial 60 01/04/19 09:00 Bi-pap 2.0 01/04/19 09:00 68 128/62 01/04/19 09:00 68 01/04/19 08:00 97.4 68 24 128/62 (84) 100 01/04/19 08:00 73 01/04/19 07:51 73 01/04/19 07:27 Nasal Cannula 3.0 32 01/04/19 07:27 97 Nasal Cannula 3.0 32 01/04/19 07:00 70 24 100 Facial 80 01/04/19 05:48 73 22 99 Facial 100 01/04/19 05:00 Nasal Cannula 2.0 01/04/19 04:35 85 22 99 Nasal Cannula 4.0 36 01/04/19 04:28 80 24 97 Nasal Cannula 3.0 32 01/04/19 04:00 97.5 73 19 175/80 (111) 91 01/04/19 03:29 60 01/04/19 00:00 98.0 64 19 155/77 (103) 100 01/03/19 23:28 66 01/03/19 21:38 88 157/84 01/03/19 21:05 96 Nasal Cannula 3.0 32 01/03/19 21:05 Nasal Cannula 3.0 32 01/03/19 21:04 72 20 Nasal Cannula 3.0 32 01/03/19 21:00 98.8 88 18 157/84 (108) 96 01/03/19 21:00 Nasal Cannula 2.0 01/03/19 19:40 81 01/03/19 16:00 98.1 77 21 147/78 (101) 91 01/03/19 16:00 85 Intake and Output 01/03/19 01/04/19 19:00 07:00 Intake Total 583.2 ml 1850 ml Balance 583.2 ml 1850 ml Intake Oral 360 ml 200 ml IV Total 223.2 ml 1650 ml # Voids 4 3 # Bowel Movements 2 2 Laboratory Tests 01/03/19 15:00: Total Protein (PEP) [Pending], Albumin (PEP) [Pending], Globulin (PEP) [Pending] , Albumin/Globulin Ratio [Pending], Aayyt-3-Bcmovfdnc [Pending], Alpha-2- Globulins [Pending], Beta Globulins [Pending], Beta Gamma Globulin [Pending], PEP Abnormal Protein Bands [Pending], Protein Electrophoresis Interpret [Pending ], CA 19-9 Antigen 22, Immunoglobulin G [Pending], Immunoglobulin A [Pending], Immunoglobulin M [Pending], Immunofixation Screen [Pending] 01/04/19 05:15: Arterial Blood pH 7.253L, Arterial Blood Partial Pressure CO2 57.7*H, Arterial Blood Partial Pressure O2 48.0*L, Arterial Blood HCO3 24.9, Arterial Blood Oxygen Saturation 75.2*L, Arterial Blood Base Excess -2.7L, Remberto Test Positive 01/04/19 05:50: White Blood Count 9.5, Red Blood Count 3.15L, Hemoglobin 8.8L, Hematocrit 28.0L , Mean Corpuscular Volume 89, Mean Corpuscular Hemoglobin 27.9, Mean Corpuscular Hemoglobin Concent 31.4L, Red Cell Distribution Width 17.4H, Platelet Count 109L, Mean Platelet Volume 8.0, Neutrophils (%) (Auto) 74.1, Lymphocytes (%) (Auto) 19.3L, Monocytes (%) (Auto) 5.4, Eosinophils (%) (Auto) 0.7, Basophils (%) (Auto) 0.5, Sodium Level 142, Potassium Level 3.5, Chloride Level 108H, Carbon Dioxide Level 27, Anion Gap 7, Blood Urea Nitrogen 19H, Creatinine 1.0, Estimat Glomerular Filtration Rate , Glucose Level 157H, Calcium Level 8.2L 01/04/19 10:42: Arterial Blood pH 7.304L, Arterial Blood Partial Pressure CO2 56.2*H, Arterial Blood Partial Pressure O2 236.8H, Arterial Blood HCO3 27.3H, Arterial Blood Oxygen Saturation 98.7, Arterial Blood Base Excess 0.5, Remberto Test Positive Height (Feet): 5 Height (Inches): 6.00 Weight (Pounds): 130 General Appearance: lethargic EENT: normal ENT inspection Neck: normal alignment Cardiovascular: normal peripheral pulses, normal rate, regular rhythm Respiratory/Chest: chest wall non-tender, decreased breath sounds Abdomen: normal bowel sounds, non tender, soft Extremities: normal inspection Edema: no edema noted Arm (L), no edema noted Arm (R), no edema noted Leg (L), no edema noted Leg (R), no edema noted Pedal (L), no edema noted Pedal (R), no edema noted Generalized Neurologic: responsive, motor weakness Skin: normal pigmentation, warm/dry Landry Green DO Jan 04, 2019 14:36
--- NOTE | 2019-01-04 15:25 | Cardiac Electrophysiology PN ---
Assessment/Plan Assessment/Plan 1. Paroxysmal atrial fibrillation with rapid ventricular response. Precipitated by profound anemia with hemoglobin of 3.5. EF 45% with moderate to severe pulmonary hypertension. Converted to SR on 12/23/18 but back in atrial fib and again in SR today 01/04/19 Off anticoagulations for gastrointestinal bleed and hemoglobin 3.5. On Amiodarone 200 mg po daily, Dig 0.125 mg po daily and Lopressor 100 bid 2. Troponin leak due to atrial fib with RVR 3. Hypertension. On Metoprolol 4. Pancytopenia with Profound anemia, hemoglobin of 3.5 and platelet 35. S/P EGD by Dr Caruso 12/22/18 gastritis . S/P PRBC S/p BM Biopsy 12/31/[address] Gooden S/P Bone scan 5. S/P Respiratory failure on BIPAP now 6. Mild azotemia, BUN of 20, creatinine 1.0. 7. Klebsiella PNA. Pleural effusion, s/p thoracentesis 8. Positive blood cx Carbapenem resistant Klebsilella. On Abx per Dr Cierra GARCIA RN and family Subjective Subjective In SR today on BIPAP. FAmily at bedside Objective Last 24 Hour Vital Signs Date Time Temp Pulse Resp B/P (MAP) Pulse Ox O2 Delivery O2 Flow Rate FiO2 01/04/19 12:37 67 20 100 Facial 50 01/04/19 12:00 97.6 65 22 146/73 (97) 100 01/04/19 11:07 80 22 100 Facial 60 01/04/19 09:00 Bi-pap 2.0 01/04/19 09:00 68 128/62 01/04/19 09:00 68 01/04/19 08:00 97.4 68 24 128/62 (84) 100 01/04/19 08:00 73 01/04/19 07:51 73 01/04/19 07:27 Nasal Cannula 3.0 32 01/04/19 07:27 97 Nasal Cannula 3.0 32 01/04/19 07:00 70 24 100 Facial 80 01/04/19 05:48 73 22 99 Facial 100 01/04/19 05:00 Nasal Cannula 2.0 01/04/19 04:35 85 22 99 Nasal Cannula 4.0 36 01/04/19 04:28 80 24 97 Nasal Cannula 3.0 32 01/04/19 04:00 97.5 73 19 175/80 (111) 91 01/04/19 03:29 60 01/04/19 00:00 98.0 64 19 155/77 (103) 100 01/03/19 23:28 66 01/03/19 21:38 88 157/84 01/03/19 21:05 96 Nasal Cannula 3.0 32 01/03/19 21:05 Nasal Cannula 3.0 32 01/03/19 21:04 72 20 Nasal Cannula 3.0 32 01/03/19 21:00 98.8 88 18 157/84 (108) 96 01/03/19 21:00 Nasal Cannula 2.0 01/03/19 19:40 81 01/03/19 16:00 98.1 77 21 147/78 (101) 91 01/03/19 16:00 85 Intake and Output 01/03/19 01/04/19 19:00 07:00 Intake Total 583.2 ml 1850 ml Balance 583.2 ml 1850 ml Intake Oral 360 ml 200 ml IV Total 223.2 ml 1650 ml # Voids 4 3 # Bowel Movements 2 2 Laboratory Tests Test 01/04/19 05:15 01/04/19 05:50 01/04/19 10:42 Arterial Blood pH 7.253 (7.350-7.450) 7.304 (7.350-7.450) Arterial Blood Partial Pressure CO2 57.7 mmHg (35.0-45.0) *H 56.2 mmHg (35.0-45.0) *H Arterial Blood Partial Pressure O2 48.0 mmHg (75.0-100.0) 236.8 mmHg (75.0-100.0) H Arterial Blood HCO3 24.9 mmol/L (22.0-26.0) 27.3 mmol/L (22.0-26.0) H Arterial Blood Oxygen Saturation 75.2 % (95-100) *L 98.7 % (95-100) Arterial Blood Base Excess -2.7 (-2-2) L 0.5 (-2-2) Remberto Test Positive Positive White Blood Count 9.5 K/UL (4.8-10.8) Red Blood Count 3.15 M/UL (4.70-6.10) L Hemoglobin 8.8 G/DL (14.2-18.0) L Hematocrit 28.0 % (42.0-52.0) L Mean Corpuscular Volume 89 FL (80-99) Mean Corpuscular Hemoglobin 27.9 PG (27.0-31.0) Mean Corpuscular Hemoglobin Concent 31.4 G/DL (32.0-36.0) L Red Cell Distribution Width 17.4 % (11.6-14.8) H Platelet Count 109 K/UL (150-450) L Mean Platelet Volume 8.0 FL (6.5-10.1) Neutrophils (%) (Auto) 74.1 % (45.0-75.0) Lymphocytes (%) (Auto) 19.3 % (20.0-45.0) L Monocytes (%) (Auto) 5.4 % (1.0-10.0) Eosinophils (%) (Auto) 0.7 % (0.0-3.0) Basophils (%) (Auto) 0.5 % (0.0-2.0) Sodium Level 142 MMOL/L (136-145) Potassium Level 3.5 MMOL/L (3.5-5.1) Chloride Level 108 MMOL/L (98-107) H Carbon Dioxide Level 27 MMOL/L (21-32) Anion Gap 7 mmol/L (5-15) Blood Urea Nitrogen 19 mg/dL (7-18) H Creatinine 1.0 MG/DL (0.55-1.30) Estimat Glomerular Filtration Rate mL/min (>60) Glucose Level 157 MG/DL (74-106) H Calcium Level 8.2 MG/DL (8.5-10.1) L Objective HEAD AND NECK: No JVD LUNGS: Coarse rhonchi. CARDIOVASCULAR:Regular S1 and S2 with no gallop or murmur. ABDOMEN: Soft. Swollen scrotum EXTREMITIES: No edema. Shantanu Mcmillan MD Jan 04, 2019 15:25
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
--- NOTE | 2019-01-04 15:41 | NUR ---
Social Service SW met with patient's dgts at bedside to discuss treatment plan of care. Dgts are in agreement with hospice at [facility]. SW informed Dr. Green and Dr. Emerson. [facility] [phone] contacted for referral. Salome will contact patient's dgt and arrange a meeting tomorrow at patient's bedside. Support provided to family. Code status addressed and patient will remain full code at this time. Will monitor and follow up.
[2019-01-04 16:00] VITALS: BP 155/77
--- NOTE | 2019-01-04 16:54 | NUR ---
CASE MANAGEMENT: REVIEW 01/04/2019 SI: RESP FAILURE S/P EXTUBATION T 97.6 HR 65 RR 22 B/P 146/73 SATS 100% ON FACIAL FiO2 50 CL 108 BUN 19 GLU 157 CA 8.2 ABGs pH 7.304 pCO2 56.2 pO2 236.8 HCO3 27.3 IS: IVF @ 65 mL/HR LOPRESSOR PO Q12H MIRALAX PO QHS CORDARONE PO QD DIGOXIN PO QD AMIKACIN IV Q36H AZTREONAM IV Q36H CEFTAZIDIME IV Q8H TELE STATUS DCP: PATIENT TO BE DISCHARGED TO HOME ONCE MEDICALLY CLEARED. PLAN OF CARE: HOSPICE CONSULT
--- NOTE | 2019-01-04 19:12 | NUR ---
HAND-OFF: Report given to Valentin RN.
--- NOTE | 2019-01-04 19:15 | NUR ---
NURSE NOTES: Received report from Joaquín Morel RN. Patient in bed AAO X4 with no complaints of acute pain at this time. IV lines intact and patent with Prescribed fluids ordered. Placed on cardiac monitoring per protocol with no S/S of distress noted. On BiPAP with 02 sat at 97-98%. Safety precaution in place at all times; siderails x3 up, call light within reach, bed in lowest position, brakes and alarm on at all times, also placed on continuos close monitoring for fall prevention. Needs and wants anticipated and attended, will continue plan of care and monitor for any changes noted. Placed on strict contact isolation precaution. Will continue to implement and monitor
[2019-01-04 20:00] VITALS: BP 144/67
[2019-01-04] MEDS: Miralax 17gm pkt ORAL SCH (20:49)
[2019-01-04] MEDS ORDERED: Albuterol/Ipratropium 3ml neb HHN PRN (23:15)
[2019-01-05] VITALS (7 sets, daily range): BP systolic 127–152; BP diastolic 50–103
[2019-01-05] MEDS: Aztreonam 1gm/D5W 55ml IVPB SCH ×6 (02:02→17:25)
--- NOTE | 2019-01-05 02:38 | NUR ---
NURSE NOTES: Patient in bed asleep with no S/S of distress at this time. Closely monitored for any changes noted
[2019-01-05] MEDS: AVIBACTAM IVPB SCH ×6 (03:48→20:35)
[2019-01-05] MEDS: SODIUM CHLORIDE IVPB SCH ×6 (03:48→20:35)
[2019-01-05] MEDS: CEFTAZIDIME IVPB SCH ×6 (03:48→20:35)
[2019-01-05] MEDS: Amikacin 800 MG in NS 110 ML IV SCH (04:33)
[2019-01-05 07:30] LABS: ANION GAP 7 mmol/L (5-15); BLOOD UREA NITROGEN 16 mg/dL (7-18); CALCIUM 8.2 MG/DL (8.5-10.1); CARBON DIOXIDE 29 MMOL/L (21-32); CHLORIDE 109 MMOL/L (98-107); CREATININE 0.8 MG/DL (0.55-1.30); PHOSPHORUS 1.8 MG/DL (2.5-4.9); POTASSIUM 3.5 MMOL/L (3.5-5.1); SODIUM 145 MMOL/L (136-145)
--- NOTE | 2019-01-05 07:35 | NUR ---
HAND-OFF: Report given to EomAlona RN. Patient in bed in stable condition with no S/S of distress at this time. Endorsed plan of care
--- NOTE | 2019-01-05 07:40 | NUR ---
NURSE NOTES: Received report from Valentin MOON. Patient is in stable condition, No acute distress/SOB noted. Bed is in the lowest position and call light is within reach. Will continue plan of care.
[2019-01-05 07:52] LABS: HEMATOCRIT 23.9 % (42.0-52.0); HEMOGLOBIN 7.8 G/DL (14.2-18.0); MEAN CORPUSCULAR VOLUME 86 FL (80-99); PLATELET COUNT 86 K/UL (150-450); RED BLOOD COUNT 2.77 M/UL (4.70-6.10); RED CELL DISTRIBUTION WIDTH 16.3 % (11.6-14.8); WHITE BLOOD COUNT 9.1 K/UL (4.8-10.8)
--- NOTE | 2019-01-05 08:28 | Nephrology Progress Note ---
Assessment/Plan Assessment/Plan A/P 1) E- ABN- hypophosphatemia/Mg/K+ ( on Amikacin) - replace KPhos today - Cr normal 2) Afib RVR- per cardiology 3) Sepsis- on Abx recurrent sepsis-multifactorial 2ry to bacteremia, PNA and UTI Persistent CRE/fernandez resistant Bacteremia- - multiAbx which are nephrotoxic per ID mgmt - continue to monitor renal function 4) Anemia- stable Subjective Date patient seen: Jan 05, 2019 Time patient seen: 08:26 ROS Limited/Unobtainable: No Allergies: Coded Allergies: No Known Allergies (Unverified , 12/15/18) Subjective Patient continues to improve. Poss DC soon Objective Last 24 Hour Vital Signs Date Time Temp Pulse Resp B/P (MAP) Pulse Ox O2 Delivery O2 Flow Rate FiO2 01/05/19 07:29 77 27 95 Facial 35 01/05/19 05:49 74 25 96 Facial 35 01/05/19 04:00 65 01/05/19 04:00 97.5 66 18 150/73 (98) 97 01/05/19 00:00 65 01/05/19 00:00 98.0 63 20 149/76 (100) 100 01/04/19 23:45 61 20 100 Venturi Mask 12.0 50 01/04/19 23:32 63 24 99 Venturi Mask 8.0 40 01/04/19 21:30 75 27 100 Facial 35 01/04/19 21:00 Bi-pap 2.0 01/04/19 20:49 77 144/67 01/04/19 20:00 73 01/04/19 20:00 98.8 77 24 144/67 (92) 100 01/04/19 19:58 74 21 100 Facial 35 01/04/19 19:57 97 Bi-pap 35 01/04/19 19:57 Bi-pap 35 01/04/19 16:30 95 20 100 Facial 35 01/04/19 16:00 97.7 77 24 155/77 (103) 100 01/04/19 16:00 86 01/04/19 15:31 86 01/04/19 12:37 67 20 100 Facial 50 01/04/19 12:00 97.6 65 22 146/73 (97) 100 01/04/19 11:44 70 3/19/19 11:07 80 22 100 Facial 60 01/04/19 09:00 Bi-pap 2.0 01/04/19 09:00 68 128/62 01/04/19 09:00 68 Intake and Output 01/04/19 01/05/19 18:59 06:59 Intake Total 770 ml Output Total 100 ml 500 ml Balance 670 ml -500 ml IV Total 770 ml Output Urine Total 100 ml 500 ml # Voids 1 # Bowel Movements 1 Laboratory Tests 01/04/19 10:42: Arterial Blood pH 7.304L, Arterial Blood Partial Pressure CO2 56.2*H, Arterial Blood Partial Pressure O2 236.8H, Arterial Blood HCO3 27.3H, Arterial Blood Oxygen Saturation 98.7, Arterial Blood Base Excess 0.5, Remberto Test Positive 01/05/19 05:28: White Blood Count 9.1, Red Blood Count 2.77L, Hemoglobin 7.8L, Hematocrit 23.9L , Mean Corpuscular Volume 86, Mean Corpuscular Hemoglobin 28.3, Mean Corpuscular Hemoglobin Concent 32.8, Red Cell Distribution Width 16.3H, Platelet Count 86L, Mean Platelet Volume 7.5, Neutrophils (%) (Auto) , Lymphocytes (%) (Auto) , Monocytes (%) (Auto) , Eosinophils (%) (Auto) , Basophils (%) (Auto) , Neutrophils % (Manual) [Pending], Lymphocytes % (Manual) [Pending], Platelet Estimate [Pending], Platelet Morphology [Pending], Sodium Level 145, Potassium Level 3.5, Chloride Level 109H, Carbon Dioxide Level 29, Anion Gap 7, Blood Urea Nitrogen 16, Creatinine 0.8, Estimat Glomerular Filtration Rate , Glucose Level 110H, Calcium Level 8.2L, Phosphorus Level 1.8L , Magnesium Level 1.9 Height (Feet): 5 Height (Inches): 6.00 Weight (Pounds): 129 General Appearance: no apparent distress, alert EENT: normal ENT inspection Neck: normal alignment, supple Cardiovascular: normal rate, regular rhythm Respiratory/Chest: lungs clear, normal breath sounds Abdomen: non tender, soft Edema: no edema noted Arm (L), no edema noted Arm (R), no edema noted Leg (L), no edema noted Leg (R), no edema noted Pedal (L), no edema noted Pedal (R), no edema noted Generalized De Dora,Sacha MD Jan 05, 2019 08:28
[2019-01-05] MEDS: Dronabinol 2.5mg Cap ORAL SCH ×3 (09:21→17:24)
[2019-01-05] MEDS: Amiodarone 200mg tab ORAL SCH (09:21)
[2019-01-05] MEDS: Digoxin 0.125mg tab ORAL SCH (09:21)
[2019-01-05] MEDS: Bicalutamide 50mg tab ORAL SCH (09:21)
[2019-01-05] MEDS: Pantoprazole Inj IV SCH (09:22)
[2019-01-05] MEDS: Docusate 100mg cap ORAL SCH ×2 (09:22→17:24)
[2019-01-05] MEDS ORDERED: Potassium Phosphate 20 MM in NS 275 ML IV ONE (10:00)
--- NOTE | 2019-01-05 10:49 | GI Progress Note ---
Assessment/Plan Problems: (1) Severe anemia ICD Codes: D64.9 - Anemia, unspecified SNOMED: 991247775 (2) Anemia ICD Codes: D64.9 - Anemia, unspecified SNOMED: 050624398 (3) Elevated LFTs ICD Codes: R94.5 - Abnormal results of liver function studies SNOMED: 609011917, 803995899 (4) Dysphagia ICD Codes: R13.10 - Dysphagia, unspecified SNOMED: 72076432, 529088346 Status: unchanged Status Narrative Discussed with Dr. Caruso Assessment/Plan s/p EGD SUMMARY OF FINDINGS: Severe gastritis versus portal hypertensive gastropathy versus ischemia, status post biopsy. Status post thoracentesis Status post bone marrow biopsy, positive for metastatic carcinoma consistent with prostate primary. Follow-up oncology Diet per ST on Marinol, push PO Continue on PPI. Carafate. Follow up biopsy results and treat accordingly. prn transfusions Electrolyte correction follow labs bowel regimen PT evaluation The patient was seen and examined at bedside and all new and available data was reviewed in the patients chart. I agree with the above findings, impression and plan. (Patient seen earlier today. Signature stamp does not reflect patient encounter time.). - Mike Caruso MD Subjective Subjective Denies any abdominal pain Has a slight decrease of appetite Objective Last 24 Hour Vital Signs Date Time Temp Pulse Resp B/P (MAP) Pulse Ox O2 Delivery O2 Flow Rate FiO2 01/05/19 09:51 109 01/05/19 09:24 90 152/103 01/05/19 09:21 90 01/05/19 08:00 98.2 90 26 152/103 (119) 94 01/05/19 08:00 67 01/05/19 07:29 77 27 95 Facial 35 01/05/19 05:49 74 25 96 Facial 35 01/05/19 04:00 65 01/05/19 04:00 97.5 66 18 150/73 (98) 97 01/05/19 00:00 65 01/05/19 00:00 98.0 63 20 149/76 (100) 100 01/04/19 23:45 61 20 100 Venturi Mask 12.0 50 01/04/19 23:32 63 24 99 Venturi Mask 8.0 40 01/04/19 21:30 75 27 100 Facial 35 01/04/19 21:00 Bi-pap 2.0 01/04/19 20:49 77 144/67 01/04/19 20:00 73 01/04/19 20:00 98.8 77 24 144/67 (92) 100 01/04/19 19:58 74 21 100 Facial 35 01/04/19 19:57 97 Bi-pap 35 01/04/19 19:57 Bi-pap 35 01/04/19 16:30 95 20 100 Facial 35 01/04/19 16:00 97.7 77 24 155/77 (103) 100 01/04/19 16:00 86 01/04/19 15:31 86 01/04/19 12:37 67 20 100 Facial 50 01/04/19 12:00 97.6 65 22 146/73 (97) 100 01/04/19 11:44 70 01/04/19 11:07 80 22 100 Facial 60 Intake and Output 01/04/19 01/05/19 18:59 06:59 Intake Total 770 ml Output Total 100 ml 500 ml Balance 670 ml -500 ml IV Total 770 ml Output Urine Total 100 ml 500 ml # Voids 1 # Bowel Movements 1 Laboratory Tests Test 01/05/19 05:28 White Blood Count 9.1 K/UL (4.8-10.8) Red Blood Count 2.77 M/UL (4.70-6.10) L Hemoglobin 7.8 G/DL (14.2-18.0) L Hematocrit 23.9 % (42.0-52.0) L Mean Corpuscular Volume 86 FL (80-99) Mean Corpuscular Hemoglobin 28.3 PG (27.0-31.0) Mean Corpuscular Hemoglobin Concent 32.8 G/DL (32.0-36.0) Red Cell Distribution Width 16.3 % (11.6-14.8) H Platelet Count 86 K/UL (150-450) L Mean Platelet Volume 7.5 FL (6.5-10.1) Neutrophils (%) (Auto) % (45.0-75.0) Lymphocytes (%) (Auto) % (20.0-45.0) Monocytes (%) (Auto) % (1.0-10.0) Eosinophils (%) (Auto) % (0.0-3.0) Basophils (%) (Auto) % (0.0-2.0) Differential Total Cells Counted 100 Neutrophils % (Manual) 79 % (45-75) H Lymphocytes % (Manual) 16 % (20-45) L Monocytes % (Manual) 5 % (1-10) Eosinophils % (Manual) 0 % (0-3) Basophils % (Manual) 0 % (0-2) Band Neutrophils 0 % (0-8) Platelet Estimate Decreased L Platelet Morphology Normal Anisocytosis 1+ Sodium Level 145 MMOL/L (136-145) Potassium Level 3.5 MMOL/L (3.5-5.1) Chloride Level 109 MMOL/L (98-107) H Carbon Dioxide Level 29 MMOL/L (21-32) Anion Gap 7 mmol/L (5-15) Blood Urea Nitrogen 16 mg/dL (7-18) Creatinine 0.8 MG/DL (0.55-1.30) Estimat Glomerular Filtration Rate mL/min (>60) Glucose Level 110 MG/DL (74-106) H Calcium Level 8.2 MG/DL (8.5-10.1) L Phosphorus Level 1.8 MG/DL (2.5-4.9) L Magnesium Level 1.9 MG/DL (1.8-2.4) Height (Feet): 5 Height (Inches): 6.00 Weight (Pounds): 129 General Appearance: WD/WN, no apparent distress, alert, thin Cardiovascular: normal rate Respiratory/Chest: normal breath sounds, no respiratory distress Abdominal Exam: normal bowel sounds, non tender, soft Extremities: normal range of motion, non-tender Elke Jacobson NP Jan 05, 2019 10:49
--- NOTE | 2019-01-05 11:14 | Pulmonology Progress Note ---
Assessment/Plan Problems: (1) Pleural effusion (2) Prostate cancer (3) Acute respiratory failure (4) Respiratory failure with hypoxia (5) Atrial fibrillation with rapid ventricular response (6) Thrombocytopenia (7) DM (diabetes mellitus) Assessment/Plan on Nasal cannula now bone marrow biopsy showed metastatic Prostate cancer titrate fio2 to sat of 92% continue monitoring heart rate Persistent bacteremia is concerning for malignancy. pt and his daughters know the prognosis, they agreed with comfort care and home hospice. will give one dose of laxis IV to diureses since there is increased edema. Subjective ROS Limited/Unobtainable: No Constitutional: Reports: no symptoms HEENT: Repors: no symptoms Allergies: Coded Allergies: No Known Allergies (Unverified , 12/15/18) Objective Last 24 Hour Vital Signs Date Time Temp Pulse Resp B/P (MAP) Pulse Ox O2 Delivery O2 Flow Rate FiO2 01/05/19 09:51 109 01/05/19 09:24 90 152/103 01/05/19 09:21 90 01/05/19 08:00 98.2 90 26 152/103 (119) 94 01/05/19 08:00 67 01/05/19 07:29 77 27 95 Facial 35 01/05/19 05:49 74 25 96 Facial 35 01/05/19 04:00 65 01/05/19 04:00 97.5 66 18 150/73 (98) 97 01/05/19 00:00 65 01/05/19 00:00 98.0 63 20 149/76 (100) 100 01/04/19 23:45 61 20 100 Venturi Mask 12.0 50 01/04/19 23:32 63 24 99 Venturi Mask 8.0 40 01/04/19 21:30 75 27 100 Facial 35 01/04/19 21:00 Bi-pap 2.0 01/04/19 20:49 77 144/67 01/04/19 20:00 73 01/04/19 20:00 98.8 77 24 144/67 (92) 100 01/04/19 19:58 74 21 100 Facial 35 01/04/19 19:57 97 Bi-pap 35 01/04/19 19:57 Bi-pap 35 01/04/19 16:30 95 20 100 Facial 35 01/04/19 16:00 97.7 77 24 155/77 (103) 100 01/04/19 16:00 86 01/04/19 15:31 86 01/04/19 12:37 67 20 100 Facial 50 01/04/19 12:00 97.6 65 22 146/73 (97) 100 01/04/19 11:44 70 Intake and Output 01/04/19 01/05/19 18:59 06:59 Intake Total 770 ml Output Total 100 ml 500 ml Balance 670 ml -500 ml IV Total 770 ml Output Urine Total 100 ml 500 ml # Voids 1 # Bowel Movements 1 Objective General Appearance: cachetic Respiratory/Chest: chest wall non-tender, lungs clear Cardiovascular: normal peripheral pulses, normal rate Abdomen: normal bowel sounds, soft, non tender Genitourinary: normal external genitalia Extremities: no clubbing Skin: no lesions Microbiology Date/Time Source Procedure Growth Status 01/03/19 15:00 Blood Blood Culture - Preliminary NO GROWTH AFTER 24 HOURS Resulted 01/03/19 14:45 Blood Blood Culture - Preliminary NO GROWTH AFTER 24 HOURS Resulted Laboratory Tests 01/05/19 05:28: White Blood Count 9.1, Red Blood Count 2.77L, Hemoglobin 7.8L, Hematocrit 23.9L , Mean Corpuscular Volume 86, Mean Corpuscular Hemoglobin 28.3, Mean Corpuscular Hemoglobin Concent 32.8, Red Cell Distribution Width 16.3H, Platelet Count 86L, Mean Platelet Volume 7.5, Neutrophils (%) (Auto) , Lymphocytes (%) (Auto) , Monocytes (%) (Auto) , Eosinophils (%) (Auto) , Basophils (%) (Auto) , Differential Total Cells Counted 100, Neutrophils % ( Manual) 79H, Lymphocytes % (Manual) 16L, Monocytes % (Manual) 5, Eosinophils % ( Manual) 0, Basophils % (Manual) 0, Band Neutrophils 0, Platelet Estimate DecreasedL, Platelet Morphology Normal, Anisocytosis 1+, Sodium Level 145, Potassium Level 3.5, Chloride Level 109H, Carbon Dioxide Level 29, Anion Gap 7, Blood Urea Nitrogen 16, Creatinine 0.8, Estimat Glomerular Filtration Rate , Glucose Level 110H, Calcium Level 8.2L, Phosphorus Level 1.8L, Magnesium Level 1.9 Current Medications Medications (Trade) Dose Ordered Sig/Brock Route PRN Reason Start Time Stop Time Status Last Admin Dose Admin Acetaminophen (Tylenol) 650 mg Q4H PRN ORAL fever 3/12/19 23:15 01/15/19 07:14 Albuterol/ Ipratropium (Albuterol/ Ipratropium) 3 ml Q4H PRN HHN Shortness of Breath 01/04/19 23:15 01/09/19 23:14 01/04/19 23:35 Amikacin Protocol (Amikacin pharmacy to dose) 1 ea DAILY PRN MISC Per rx protocol 12/31/18 16:00 01/30/19 15:59 Amikacin Sulfate 800 mg/Sodium Chloride 113.2 ml @ 226.4 mls/ hr Q36H IV 12/31/18 17:00 01/07/19 16:59 01/05/19 04:33 Amiodarone HCl (Cordarone) 200 mg DAILY ORAL 12/29/18 09:00 01/27/19 10:14 01/05/19 09:21 Aztreonam 1 gm/ Dextrose 55 ml @ 110 mls/hr Q8HR@0200,1000,1800 IVPB 01/01/19 10:00 01/08/19 09:59 01/05/19 09:23 Bicalutamide (Casodex) 50 mg DAILY ORAL 01/01/19 09:00 01/06/19 08:59 01/05/19 09:21 Ceftazidime/ Avibactam 2.5 gm/ Sodium Chloride 110 ml @ 55 mls/hr Q8HR@0400,1200,2000 IVPB 01/01/19 12:00 01/08/19 11:59 01/05/19 03:48 Clonidine HCl (Catapres Tab) 0.1 mg Q6H PRN ORAL For High Blood Pressure 01/03/19 08:00 02/02/19 07:59 Dextrose (Dextrose 50%) 25 ml Q30M PRN IV Hypoglycemia 12/28/18 22:45 01/15/19 07:14 Dextrose (Dextrose 50%) 50 ml Q30M PRN IV Hypoglycemia 12/30/18 19:45 01/29/19 19:44 Digoxin (Lanoxin) 0.125 mg DAILY ORAL 12/29/18 09:00 01/18/19 08:59 01/05/19 09:21 Diltiazem HCl (Cardizem) 10 mg EVERY HOUR PRN IV heart rate more than 120 BPM 12/28/18 23:00 01/26/19 11:14 Docusate Sodium (Colace) 100 mg TWICE A DAY ORAL 12/31/18 18:00 01/30/19 17:59 01/05/19 09:22 Dronabinol (Marinol) 2.5 mg TID ORAL 12/29/18 09:00 01/27/19 12:59 01/05/19 09:21 Metoprolol Tartrate (Lopressor) 100 mg EVERY 12 HOURS ORAL 01/04/19 21:00 02/03/19 20:59 01/05/19 09:24 Potassium Phosphate 20 mm/ Sodium Chloride 281.6667 ml @ 46.944 m... ONCE ONCE IV 01/05/19 10:00 01/05/19 15:59 01/05/19 10:45 Bryan Emerson MD Jan 05, 2019 11:14
--- NOTE | 2019-01-05 11:35 | NUR ---
DISCHARGE PLAN DISCHARGE ORDER NOTED PATIENT'S FAMILY IS MEETING WITH "[facility]" TODAY AT 1230 AT BEDSIDE ONCE MEETING IS COMPLETED ASSISTANT ACTIVITIES DIRECTORGIANCARLO (T:[phone]) WILL NOTIFY THIS RESIDENCE LIFE COORDINATOR TO WHAT TIME TO SET UP AMBULANCE TRANSPORT AND TO CONFIRM DISCHARGE ADDRESS
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
--- NOTE | 2019-01-05 13:56 | Surgery Progress Note ---
Surgery Progress Note Subjective Additional Comments bone marrow biopsy results noted. exam stable. family at bedside. discussed care plan Objective Last 24 Hour Vital Signs Date Time Temp Pulse Resp B/P (MAP) Pulse Ox O2 Delivery O2 Flow Rate FiO2 01/05/19 12:00 75 01/05/19 12:00 98.2 69 26 147/95 (112) 98 01/05/19 09:51 109 01/05/19 09:24 90 152/103 01/05/19 09:21 90 01/05/19 09:06 Nasal Cannula 3.0 32 01/05/19 09:05 97 Nasal Cannula 3.0 32 01/05/19 09:00 Bi-pap 2.0 01/05/19 08:00 98.2 90 26 152/103 (119) 94 01/05/19 08:00 67 01/05/19 07:29 77 27 95 Facial 35 01/05/19 05:49 74 25 96 Facial 35 01/05/19 04:00 65 01/05/19 04:00 97.5 66 18 150/73 (98) 97 01/05/19 00:00 65 01/05/19 00:00 98.0 63 20 149/76 (100) 100 01/04/19 23:45 61 20 100 Venturi Mask 12.0 50 01/04/19 23:32 63 24 99 Venturi Mask 8.0 40 01/04/19 21:30 75 27 100 Facial 35 01/04/19 21:00 Bi-pap 2.0 01/04/19 20:49 77 144/67 01/04/19 20:00 73 01/04/19 20:00 98.8 77 24 144/67 (92) 100 01/04/19 19:58 74 21 100 Facial 35 01/04/19 19:57 97 Bi-pap 35 01/04/19 19:57 Bi-pap 35 01/04/19 16:30 95 20 100 Facial 35 01/04/19 16:00 97.7 77 24 155/77 (103) 100 01/04/19 16:00 86 01/04/19 15:31 86 I&O Intake and Output 01/04/19 01/05/19 18:59 06:59 Intake Total 770 ml Output Total 100 ml 500 ml Balance 670 ml -500 ml IV Total 770 ml Output Urine Total 100 ml 500 ml # Voids 1 # Bowel Movements 1 Drains: none Cardiovascular: RSR Respiratory: clear Abdomen: soft, flat, non-tender, present bowel sounds, non-distended Extremities: no cyanosis Laboratory Tests Test 01/05/19 05:28 White Blood Count 9.1 K/UL (4.8-10.8) Red Blood Count 2.77 M/UL (4.70-6.10) L Hemoglobin 7.8 G/DL (14.2-18.0) L Hematocrit 23.9 % (42.0-52.0) L Mean Corpuscular Volume 86 FL (80-99) Mean Corpuscular Hemoglobin 28.3 PG (27.0-31.0) Mean Corpuscular Hemoglobin Concent 32.8 G/DL (32.0-36.0) Red Cell Distribution Width 16.3 % (11.6-14.8) H Platelet Count 86 K/UL (150-450) L Mean Platelet Volume 7.5 FL (6.5-10.1) Neutrophils (%) (Auto) % (45.0-75.0) Lymphocytes (%) (Auto) % (20.0-45.0) Monocytes (%) (Auto) % (1.0-10.0) Eosinophils (%) (Auto) % (0.0-3.0) Basophils (%) (Auto) % (0.0-2.0) Differential Total Cells Counted 100 Neutrophils % (Manual) 79 % (45-75) H Lymphocytes % (Manual) 16 % (20-45) L Monocytes % (Manual) 5 % (1-10) Eosinophils % (Manual) 0 % (0-3) Basophils % (Manual) 0 % (0-2) Band Neutrophils 0 % (0-8) Platelet Estimate Decreased L Platelet Morphology Normal Anisocytosis 1+ Sodium Level 145 MMOL/L (136-145) Potassium Level 3.5 MMOL/L (3.5-5.1) Chloride Level 109 MMOL/L (98-107) H Carbon Dioxide Level 29 MMOL/L (21-32) Anion Gap 7 mmol/L (5-15) Blood Urea Nitrogen 16 mg/dL (7-18) Creatinine 0.8 MG/DL (0.55-1.30) Estimat Glomerular Filtration Rate mL/min (>60) Glucose Level 110 MG/DL (74-106) H Calcium Level 8.2 MG/DL (8.5-10.1) L Phosphorus Level 1.8 MG/DL (2.5-4.9) L Magnesium Level 1.9 MG/DL (1.8-2.4) Plan Problems: (1) Inguinal hernia Assessment & Plan: 78 year old male with massive inguinal hernia with bowel contents. CT with Massive indirect right inguinal hernia, containing the proximal colon and much if not most of the small bowel. No definite evidence of obstruction or strangulation Anasarca, with diffuse extensive bilateral pulmonary edema, bilateral pleural effusions, small amount of free intraperitoneal fluid, and extensive edema of the subcutaneous and mediastinal fat Colonic diverticulosis Diffuse skeletal osteosclerosis Distended bladder Prostatomegaly Large bilateral renal cysts. Calcification in the periventricular right kidney likely represent old involuted calcified cyst Nasogastric tube Incidental finding right lobe liver cyst On exam large inguinal hernia with bowel contents in scrotum not reducible but no signs of obstruction / strangulation. in reviewing CT likely loss of domain given patients body habitus compared to hernia size. patient awake but intubated on vent support. no tenderness but does have discomfort with manipulation. given above no acute surgical intervention planned as this is likely chronic and with loss of domain. unlikely to be incarcerated but will need to keep an eye on it as bowel can obstruction will follow with exams No significant interval change in the massive right-sided indirect inguinal hernia with loops of small bowel and colon in the right scrotum. No evidence of bowel obstruction or strangulation. Moderate right sided layering pleural effusion, mildly increased compared to the prior exam. No significant change in the small layering left pleural effusion. Interval worsening of near complete consolidation of the left lower lobe with air bronchograms, which may suggest pneumonia versus atelectasis. Dependent consolidation in the right lung base, which may represent atelectasis versus pneumonia, stable. Unchanged appearance of diffuse of diffuse soft tissue edema/anasarca. Unchanged appearance of hepatic and renal cysts. Diffuse skeletal osteosclerosis, unchanged. leukocytosis resolved CXR noted after thoracentesis - resolved pleural effusion Abx as per ID appreciate Cardiology input BMbiopsy noted EGD results noted given findings unlikely surgical candidate at this time thank you (2) Pleural effusion Assessment & Plan: s/p thoracentesis with removal of near 1600cc fluids CXR noted after thoracentesis - resolved pleural effusion (3) Prostate cancer Assessment & Plan: bone marrow biopsy noted mets prostate primary bone infiltrated Yordy Tucker Jan 05, 2019 13:56
--- NOTE | 2019-01-05 14:56 | General Progress Note ---
Assessment/Plan Problem List: (1) Respiratory failure with hypoxia ICD Codes: J96.91 - Respiratory failure, unspecified with hypoxia SNOMED: 80663113328788993 Qualifiers: Qualified Codes: J96.01 - Acute respiratory failure with hypoxia (2) Atrial fibrillation with rapid ventricular response ICD Codes: I48.91 - Unspecified atrial fibrillation SNOMED: 352558591854320, 746207886 (3) Severe anemia ICD Codes: D64.9 - Anemia, unspecified SNOMED: 296005883 (4) ATN (acute tubular necrosis) ICD Codes: N17.0 - Acute kidney failure with tubular necrosis SNOMED: 12555976 (5) DM (diabetes mellitus) ICD Codes: E11.9 - Type 2 diabetes mellitus without complications SNOMED: 28759550 (6) Fever ICD Codes: R50.9 - Fever, unspecified SNOMED: 209140672 Status: unchanged Assessment/Plan vent transfuse prn cardio heme eval f/u cbc bmp am dc plan w hospice Subjective Constitutional: Reports: weakness Allergies: Coded Allergies: No Known Allergies (Unverified , 12/15/18) All Systems: reviewed and negative except above Subjective o2 nc sleepy Objective Last 24 Hour Vital Signs Date Time Temp Pulse Resp B/P (MAP) Pulse Ox O2 Delivery O2 Flow Rate FiO2 01/05/19 12:00 75 01/05/19 12:00 98.2 69 26 147/95 (112) 98 01/05/19 09:51 109 01/05/19 09:24 90 152/103 01/05/19 09:21 90 01/05/19 09:06 Nasal Cannula 3.0 32 01/05/19 09:05 97 Nasal Cannula 3.0 32 01/05/19 09:00 Bi-pap 2.0 01/05/19 08:00 98.2 90 26 152/103 (119) 94 01/05/19 08:00 67 01/05/19 07:29 77 27 95 Facial 35 01/05/19 05:49 74 25 96 Facial 35 01/05/19 04:00 65 01/05/19 04:00 97.5 66 18 150/73 (98) 97 01/05/19 00:00 65 01/05/19 00:00 98.0 63 20 149/76 (100) 100 01/04/19 23:45 61 20 100 Venturi Mask 12.0 50 01/04/19 23:32 63 24 99 Venturi Mask 8.0 40 01/04/19 21:30 75 27 100 Facial 35 01/04/19 21:00 Bi-pap 2.0 01/04/19 20:49 77 144/67 01/04/19 20:00 73 01/04/19 20:00 98.8 77 24 144/67 (92) 100 01/04/19 19:58 74 21 100 Facial 35 01/04/19 19:57 97 Bi-pap 35 01/04/19 19:57 Bi-pap 35 01/04/19 16:30 95 20 100 Facial 35 01/04/19 16:00 97.7 77 24 155/77 (103) 100 01/04/19 16:00 86 01/04/19 15:31 86 Intake and Output 01/04/19 01/05/19 19:00 07:00 Intake Total 770 ml Output Total 100 ml 500 ml Balance 670 ml -500 ml IV Total 770 ml Output Urine Total 100 ml 500 ml # Voids 1 # Bowel Movements 1 Laboratory Tests 01/05/19 05:28: White Blood Count 9.1, Red Blood Count 2.77L, Hemoglobin 7.8L, Hematocrit 23.9L , Mean Corpuscular Volume 86, Mean Corpuscular Hemoglobin 28.3, Mean Corpuscular Hemoglobin Concent 32.8, Red Cell Distribution Width 16.3H, Platelet Count 86L, Mean Platelet Volume 7.5, Neutrophils (%) (Auto) , Lymphocytes (%) (Auto) , Monocytes (%) (Auto) , Eosinophils (%) (Auto) , Basophils (%) (Auto) , Differential Total Cells Counted 100, Neutrophils % ( Manual) 79H, Lymphocytes % (Manual) 16L, Monocytes % (Manual) 5, Eosinophils % ( Manual) 0, Basophils % (Manual) 0, Band Neutrophils 0, Platelet Estimate DecreasedL, Platelet Morphology Normal, Anisocytosis 1+, Sodium Level 145, Potassium Level 3.5, Chloride Level 109H, Carbon Dioxide Level 29, Anion Gap 7, Blood Urea Nitrogen 16, Creatinine 0.8, Estimat Glomerular Filtration Rate , Glucose Level 110H, Calcium Level 8.2L, Phosphorus Level 1.8L, Magnesium Level 1.9 Height (Feet): 5 Height (Inches): 6.00 Weight (Pounds): 129 General Appearance: lethargic EENT: normal ENT inspection Neck: normal alignment Cardiovascular: normal peripheral pulses, normal rate, regular rhythm Respiratory/Chest: chest wall non-tender, decreased breath sounds Abdomen: normal bowel sounds, non tender, soft Extremities: normal inspection Landry Green DO Jan 05, 2019 14:56
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
--- NOTE | 2019-01-05 16:12 | NUR ---
Social Service Note SW confirmed with Sal[facility] from [facility] [phone], delivery of DME and O2 by 5pm. Hospice nurse will be at apartment to receive patient. Discharge location confirmed by [address] [place] [id number]. 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 Primary nurse notified.
--- NOTE | 2019-01-05 16:31 | Cardiac Electrophysiology PN ---
Assessment/Plan Assessment/Plan 1. Paroxysmal atrial fibrillation with rapid ventricular response. Precipitated by profound anemia with hemoglobin of 3.5. EF 45% with moderate to severe pulmonary hypertension. Converted to SR on 12/23/18 but back in atrial fib and again in SR today 01/04/19 Off anticoagulations for gastrointestinal bleed and hemoglobin 3.5. On Amiodarone 200 mg po daily, Dig 0.125 mg po daily and Lopressor 100 bid 2. Troponin leak due to atrial fib with RVR 3. Hypertension. On Metoprolol 4. Pancytopenia with Profound anemia, hemoglobin of 3.5 and platelet 35. S/P EGD by Dr Caruso 12/22/18 gastritis . S/P PRBC S/p BM Biopsy 12/31/[address] Gooden S/P Bone scan 5. S/P Respiratory failure on BIPAP 6. Mild azotemia, BUN of 20, creatinine 1.0. 7. Klebsiella PNA. Pleural effusion, s/p thoracentesis 8. Positive blood cx Carbapenem resistant Klebsilella. On Abx per Dr Cierra GARCIA RN Subjective Subjective In SR today in no events Objective Last 24 Hour Vital Signs Date Time Temp Pulse Resp B/P (MAP) Pulse Ox O2 Delivery O2 Flow Rate FiO2 01/05/19 16:00 97.2 60 22 130/66 (87) 95 01/05/19 12:00 75 01/05/19 12:00 98.2 69 26 147/95 (112) 98 01/05/19 09:51 109 01/05/19 09:24 90 152/103 01/05/19 09:21 90 01/05/19 09:06 Nasal Cannula 3.0 32 01/05/19 09:05 97 Nasal Cannula 3.0 32 01/05/19 09:00 Bi-pap 2.0 01/05/19 08:00 98.2 90 26 152/103 (119) 94 01/05/19 08:00 67 01/05/19 07:29 77 27 95 Facial 35 01/05/19 05:49 74 25 96 Facial 35 01/05/19 04:00 65 01/05/19 04:00 97.5 66 18 150/73 (98) 97 01/05/19 00:00 65 01/05/19 00:00 98.0 63 20 149/76 (100) 100 01/04/19 23:45 61 20 100 Venturi Mask 12.0 50 01/04/19 23:32 63 24 99 Venturi Mask 8.0 40 01/04/19 21:30 75 27 100 Facial 35 01/04/19 21:00 Bi-pap 2.0 01/04/19 20:49 77 144/67 01/04/19 20:00 73 01/04/19 20:00 98.8 77 24 144/67 (92) 100 01/04/19 19:58 74 21 100 Facial 35 01/04/19 19:57 97 Bi-pap 35 01/04/19 19:57 Bi-pap 35 Intake and Output 01/04/19 01/05/19 19:00 07:00 Intake Total 770 ml Output Total 100 ml 500 ml Balance 670 ml -500 ml IV Total 770 ml Output Urine Total 100 ml 500 ml # Voids 1 # Bowel Movements 1 Laboratory Tests Test 01/05/19 05:28 White Blood Count 9.1 K/UL (4.8-10.8) Red Blood Count 2.77 M/UL (4.70-6.10) L Hemoglobin 7.8 G/DL (14.2-18.0) L Hematocrit 23.9 % (42.0-52.0) L Mean Corpuscular Volume 86 FL (80-99) Mean Corpuscular Hemoglobin 28.3 PG (27.0-31.0) Mean Corpuscular Hemoglobin Concent 32.8 G/DL (32.0-36.0) Red Cell Distribution Width 16.3 % (11.6-14.8) H Platelet Count 86 K/UL (150-450) L Mean Platelet Volume 7.5 FL (6.5-10.1) Neutrophils (%) (Auto) % (45.0-75.0) Lymphocytes (%) (Auto) % (20.0-45.0) Monocytes (%) (Auto) % (1.0-10.0) Eosinophils (%) (Auto) % (0.0-3.0) Basophils (%) (Auto) % (0.0-2.0) Differential Total Cells Counted 100 Neutrophils % (Manual) 79 % (45-75) H Lymphocytes % (Manual) 16 % (20-45) L Monocytes % (Manual) 5 % (1-10) Eosinophils % (Manual) 0 % (0-3) Basophils % (Manual) 0 % (0-2) Band Neutrophils 0 % (0-8) Platelet Estimate Decreased L Platelet Morphology Normal Anisocytosis 1+ Sodium Level 145 MMOL/L (136-145) Potassium Level 3.5 MMOL/L (3.5-5.1) Chloride Level 109 MMOL/L (98-107) H Carbon Dioxide Level 29 MMOL/L (21-32) Anion Gap 7 mmol/L (5-15) Blood Urea Nitrogen 16 mg/dL (7-18) Creatinine 0.8 MG/DL (0.55-1.30) Estimat Glomerular Filtration Rate mL/min (>60) Glucose Level 110 MG/DL (74-106) H Calcium Level 8.2 MG/DL (8.5-10.1) L Phosphorus Level 1.8 MG/DL (2.5-4.9) L Magnesium Level 1.9 MG/DL (1.8-2.4) Microbiology Date/Time Source Procedure Growth Status 01/03/19 15:00 Blood Blood Culture - Preliminary NO GROWTH AFTER 24 HOURS Resulted 01/03/19 14:45 Blood Blood Culture - Preliminary NO GROWTH AFTER 24 HOURS Resulted Objective HEAD AND NECK: No JVD LUNGS: Coarse rhonchi. CARDIOVASCULAR:Regular S1 and S2 with no gallop or murmur. ABDOMEN: Soft. Swollen scrotum EXTREMITIES: No edema. Shantanu Mcmillan MD Jan 05, 2019 16:30
--- NOTE | 2019-01-05 19:11 | NUR ---
NURSE NOTES: Received call from [facility] and said that oxygen will be delivered around 10PM.
--- NOTE | 2019-01-05 19:14 | NUR ---
NURSE NOTES: Called [facility] and rescheduled transportation @10PM. Spoke with
--- NOTE | 2019-01-05 19:32 | NUR ---
HAND-OFF: Report given to Beck/RN, Patient is in stable condition. Endorsed plan of care.
--- NOTE | 2019-01-05 19:35 | NUR ---
NURSE NOTES: Received report from SARAI Bravo and Yancy RN. Pt is awake and resting in bed. In no acute distress. Bed in lowest position, call light within reach. Pt will be discharged home. Awaiting for transportation.
--- NOTE | 2019-01-05 22:30 | NUR ---
NURSE NOTES: Pt discharged home via [facility] ambulance. DC'ed IV lines. Pt was in stable condition upon discharge.
--- NOTE | 2019-01-06 09:26 | NUR ---
CHIP UNLOADER Co-Signature: Reviewed patient's chart. Reviewed and approved CHIP UNLOADER notes Addendum: 01/06/19 at 0927 by NICA PROCTOR PT,MG Amended: Links added.
--- NOTE | 2019-01-06 09:26 | NUR ---
CEMENT FINISHER HELPER Co-Signature: Reviewed patient's chart. Reviewed and approved CEMENT FINISHER HELPER notes Addendum: 01/06/19 at 0927 by NICA PROCTOR PT,MG Amended: Links added.
--- NOTE | 2019-01-06 09:27 | NUR ---
RACING CAR DRIVER Co-Signature: Reviewed patient's chart. Reviewed and approved RACING CAR DRIVER notes Addendum: 01/06/19 at 0927 by NICA PROCTOR PT,MG Amended: Links added.
--- NOTE | 2019-01-06 09:27 | NUR ---
SOFTWARE INTEGRATOR Co-Signature: Reviewed patient's chart. Reviewed and approved SOFTWARE INTEGRATOR notes Addendum: 01/06/19 at 0927 by NICA PROCTOR PT,MG Amended: Links added.
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
== END 2019-01-05 22:30 | disposition home or self-care (01) | DRG 207 ==
LOC: EMR 20:00 → ICU 22:28 → EDBEDREQ 12-16 04:40 → 2E 12-24 23:33 → ICU 12-27 04:18 → 2W 12-28 22:28 → 2E 12-31 08:20
PROC: 30233N1 Transfusion of Nonautologous Red Blood Cells into Peripheral Vein, Percutaneous Approach (ICD-10-PCS; principal; 2018-12-15)
PROC: 5A1955Z Respiratory Ventilation, Greater than 96 Consecutive Hours (ICD-10-PCS; 2018-12-17)
PROC: 0BH17EZ Insertion of Endotracheal Airway into Trachea, Via Natural or Artificial Opening (ICD-10-PCS; 2018-12-17)
PROC: 0DB68ZX Excision of Stomach, Via Natural or Artificial Opening Endoscopic, Diagnostic (ICD-10-PCS; 2018-12-22)
PROC: 0W993ZZ Drainage of Right Pleural Cavity, Percutaneous Approach (ICD-10-PCS; 2018-12-30)
PROC: 07DR3ZX Extraction of Iliac Bone Marrow, Percutaneous Approach, Diagnostic (ICD-10-PCS; 2018-12-31)
DX: J96.01 Acute respiratory failure with hypoxia (principal); N17.0 Acute kidney failure with tubular necrosis; A41.89 Other specified sepsis; R65.20 Severe sepsis without septic shock; J15.0 Pneumonia due to Klebsiella pneumoniae; C79.52 Secondary malignant neoplasm of bone marrow; N39.0 Urinary tract infection, site not specified; J90 Pleural effusion, not elsewhere classified; E46 Unspecified protein-calorie malnutrition; K76.6 Portal hypertension; D64.9 Anemia, unspecified; I48.0 Paroxysmal atrial fibrillation; E11.9 Type 2 diabetes mellitus without complications; I10 Essential (primary) hypertension; M54.9 Dorsalgia, unspecified; K40.90 Unilateral inguinal hernia, without obstruction or gangrene, not specified as recurrent; E87.6 Hypokalemia; E83.39 Other disorders of phosphorus metabolism; R13.10 Dysphagia, unspecified; K29.70 Gastritis, unspecified, without bleeding; R94.5 Abnormal results of liver function studies; R79.89 Other specified abnormal findings of blood chemistry; C61 Malignant neoplasm of prostate; D69.6 Thrombocytopenia, unspecified; Z51.5 Encounter for palliative care; Z68.20 Body mass index [BMI] 20.0-20.9, adult; K57.90 Diverticulosis of intestine, part unspecified, without perforation or abscess without bleeding; K31.89 Other diseases of stomach and duodenum
CPT/HCPCS: 36415; 36600; 71045; 71250; 71260; 74018; 74177; 76700; 76942; 77075; 80048; 80053; 80150; 80162; 80202; 81001; 82140; 82150; 82248; 82270; 82378; 82550; 82553; 82607; 82728; 82746; 82784; 82803; 82977; 83540; 83550; 83615; 83690; 83735; 83880; 84100; 84153; 84154; 84165; 84439; 84443; 84484; 85007; 85025; 85044; 85060; 85610; 85651; 85730; 86140; 86334; 86703; 86705; 86709; 86803; 86850; 86900; 86901; 86920; 87040; 87070; 87081; 87086; 87181; 87205; 87324; 87340; 88104; 89051; 93005; 93306; 93970; 94002; 94003; 94150; 94640; 94660; 94664; 94760; 96361; 96374; 97803; 99285; J7620; J8499